=== PATIENT | female | born 1940 | race Caucasian/White ===

== ENCOUNTER 2017-01-10 09:20 | Inpatient (IN) | payer MEDICAID, MEDICARE ==
[~2017-01-10] VITALS: Ht 157.5 cm; Wt 47.6 kg
[2017-01-10 09:20] VITALS: BP 109/63
[~2017-01-10 09:20] MED LIST: ALBUTEROL SULF8.5 GM INH; ALENDRONATE SOD10 MG ORAL; CLONAZEPAM0.5 M1 PO; DEPAKOTE250 MG GT; DITROPAN10 MG ORAL; LASIX40 MG ORAL; MONTELUKAST SOD10 MG ORAL; NAMENDA10 MG GT; OMEPRAZOLE40 M1 ORAL; POTASSIUM PO; RISPERDAL1 MG GT
[2017-01-10] MEDS ORDERED: ARGINAID POWDE1 EACH GT (09:34)
[2017-01-10] MEDS ORDERED: ACETYLCYST100 MG/1 M TRANSTR092 (09:34)
[2017-01-10] MEDS ORDERED: ACETAMINOP160 MG/5 M GT (09:34)
[2017-01-10] MEDS: Albuterol/Ipratropium 3ml neb HHN SCH ×9 (09:35→11:30)
--- NOTE | 2017-01-10 09:38 | Emergency Room Report ---
History of Present Illness General Chief Complaint: Fever Source: Patient Present Illness HPI 76-year-old female, respiratory failure, with trach tube vent, PEG tube, diabetes, COPD, hypertension, presenting with fever and vomiting for one day. Nurse from group home states that patient had one episode of coffee ground emesis yesterday, meds do not reveal any anticoagulation or aspirin use. Patient is now complaining of abdominal pain. Patient also noted to have low- grade fever, was 99 axillary this morning. Patient is full code. Patient recently discharged from [facility] Patient had imaging done which showed large left lower lobe pneumonia no evidence of pulmonary embolism.. patient was treated for pneumonia, patient was discharged on 01/05/2017, to continue rozina fungating for possible candidiasis, at this admission patient had a tracheostomy placed Allergies: Coded Allergies: CODEINE (Unverified Allergy, Unknown, 01/10/17) PENICILLINS (Unverified Allergy, Unknown, 01/10/17) Patient History Past Medical History: see triage record Past Surgical History: none Pertinent Family History: none Reviewed Nursing Documentation: PMH: Agreed, PSxH: Agreed Nursing Documentation-PMH Hx Cardiac Problems: Yes Hx Pacemaker: No - ANEMIA Hx Asthma: Yes Hx Diabetes: Yes Hx Cancer: No Hx Gastrointestinal Problems: Yes - G-TUBE Hx Neurological Problems: Yes - mental retardation Review of Systems All Other Systems: limited - nonverbal Physical Exam Vital Signs Date Time Temp Pulse Resp B/P (MAP) Pulse Ox O2 Delivery O2 Flow Rate FiO2 01/10/17 09:16 98.4 90 14 109/63 100 Mechanical Ventilator 01/10/17 09:20 35 Sp02 EP Interpretation: reviewed, abnormal - 100% on vent General Appearance: alert, non-toxic, other - Chronically ill-appearing elderly female, awake however nonverbal, only slightly following commands, Chronically Ill Head: normocephalic, atraumatic Eyes: bilateral eye normal inspection, bilateral eye PERRL, bilateral eye EOMI ENT: normal ENT inspection, normal pharynx, normal voice, moist mucus membranes Neck: normal inspection, full range of motion, supple Respiratory: other - trached to vent, mech b/s, however exp wheezing Cardiovascular #1: normal inspection, regular rate, rhythm, no edema, normal capillary refill Cardiovascular #2: 2+ radial (R), 2+ radial (L) Gastrointestinal: soft, non-distended, no guarding, other - peg tube in place, no grimace to deep palpation of abdomen, non distended Musculoskeletal: normal inspection, back normal, normal range of motion, non- tender Neurologic: sensory intact, other - awake, nonverbal, not ff commands, unable to perform full neurological exam Psychiatric: normal inspection, judgement/insight normal, memory normal Skin: normal inspection, normal color, no rash, warm/dry, well hydrated, normal turgor Procedures Critical Care Time Critical Care Time 40 minutes of CC time 76-year-old female with coffee-ground emesis, fever VS: Tachycardic, normotensive Tracheostomy, vented Sepsis criteria met PLAN: IV access, labs, lactate, Blood/Urine Cx, Abx Anticipate admission to . [facility] CC time also includes review of labs, review of EMR, discussion with family and paperwork from SNF, d/w hospitalist CC could include dosing of pressors, additional Abx CC time does not include procedures Medical Decision Making Diagnostic Impression: Primary Impression: Severe sepsis Additional Impressions: Respiratory failure Tracheostomy dependence HCAP (healthcare-associated pneumonia) ER Course 76-year-old female, group home, fever and coffee-ground emesis DDX: Rule out sepsis, UTI, pneumonia, this time the concern is acute intra-abdominal injury abdomen is very soft nontender no conicity palpation Coffee-ground emesis: Gastritis, gastric ulcer, no history of alcohol abuse to think esophageal varices, patient is hemodynamically stable at this time Plan: Obtain labs, ua, type and screen, EKG, CXR protonix ER course: Patient has been monitored during ED stay, on vent given fluids 30cc/kg broad spec abx given afebrile rectally No episodes of coffee-ground emesis here in the emergency room however patient given Protonix Disposition: Patient is to be admitted to [facility] D/W hospitalist Dr Rachel who has accepted admission Please note that this Emergency Department Report was dictated using [employer] tender technology software, occasionally this can lead to erroneous entry secondary to interpretation by the dictation equipment. EKG Diagnostic Results EP Interpretation: Yes Rate: tachycardic Rhythm: NSR ST Segments: No acute changes ASA given to patient: No Rhythm Strip EP Interpretation: Yes Rate: 110 Rhythm: NSR, no PVCs, no ectopy Chest X-ray CXR: Ordered: Yes 1 view Indication: Fever EP interpretation: Yes Interpretation: trach noted, b/l infilrates worse on R Impression: b/l infiltrates worse on R Electronically signed by Thomas Wright MD Laboratory Tests Test 01/10/17 10:15 01/10/17 10:22 White Blood Count 20.7 K/UL (4.8-10.8) H Red Blood Count 2.58 M/UL (4.20-5.40) L Hemoglobin 8.2 G/DL (12.0-16.0) L Hematocrit 25.5 % (37.0-47.0) L Mean Corpuscular Volume 99 FL (80-99) Mean Corpuscular Hemoglobin 31.8 PG (27.0-31.0) H Mean Corpuscular Hemoglobin Concent 32.1 G/DL (32.0-36.0) Red Cell Distribution Width 14.2 % (11.6-14.8) Platelet Count 446 K/UL (150-450) Mean Platelet Volume 7.5 FL (6.5-10.1) Neutrophils (%) (Auto) % (45.0-75.0) Lymphocytes (%) (Auto) % (20.0-45.0) Monocytes (%) (Auto) % (1.0-10.0) Eosinophils (%) (Auto) % (0.0-3.0) Basophils (%) (Auto) % (0.0-2.0) Differential Total Cells Counted 100 Neutrophils % (Manual) 85 % (45-75) H Lymphocytes % (Manual) 9 % (20-45) L Monocytes % (Manual) 5 % (1-10) Eosinophils % (Manual) 1 % (0-3) Basophils % (Manual) 0 % (0-2) Band Neutrophils 0 % (0-8) Platelet Estimate Increased H Platelet Morphology Normal Red Blood Cell Morphology Normal Prothrombin Time 10.6 SEC (9.30-11.50) Prothrombin Time INR 1.0 (0.9-1.1) PTT 28 SEC (23-33) Sodium Level 143 MMOL/L (136-145) Potassium Level 4.1 MMOL/L (3.5-5.1) Chloride Level 106 MMOL/L (98-107) Carbon Dioxide Level 30 MMOL/L (21-32) Anion Gap 8 mmol/L (5-15) Blood Urea Nitrogen 35 mg/dL (7-18) H Creatinine 0.9 MG/DL (0.55-1.30) Estimate Glomerular Filtration Rate mL/min (>60) Glucose Level 99 MG/DL (74-106) Lactic Acid Level 1.40 mmol/L (0.66-2.22) Calcium Level 8.3 MG/DL (8.5-10.1) L Total Bilirubin 0.1 MG/DL (0.2-1.0) L Aspartate Amino Transferase (AST) 12 U/L (15-37) L Alanine Aminotransferase (ALT) 13 U/L (12-78) Alkaline Phosphatase 104 U/L (46-116) Total Creatine Kinase 18 U/L (26-308) L Creatine Kinase MB 0.8 NG/ML (0.0-3.6) Creatine Kinase MB Relative Index 4.4 Troponin I 0.000 ng/mL (0.000-0.056) Pro-B-Type Natriuretic Peptide 1989 pg/mL (0-125) H Total Protein 6.0 G/DL (6.4-8.2) L Albumin 1.8 G/DL (3.4-5.0) L Globulin 4.2 g/dL Albumin/Globulin Ratio 0.4 (1.0-2.7) L Urine Color Karen Urine Appearance Slightly cloudy Urine pH 7 (4.5-8.0) Urine Specific [place] 1.005 (1.005-1.035) Urine Protein 2+ (NEGATIVE) H Urine Glucose (UA) Negative (NEGATIVE) Urine Ketones Negative (NEGATIVE) Urine Occult Blood Negative (NEGATIVE) Urine Nitrite Negative (NEGATIVE) Urine Bilirubin Negative (NEGATIVE) Urine Ictotest Negative Urine Urobilinogen Normal MG/DL (0.0-1.0) Urine Leukocyte Esterase 2+ (NEGATIVE) H Urine RBC 0 /HPF (0 - 2) Urine WBC 5-10 /HPF (0 - 2) H Urine Squamous Epithelial Cells Occasional /LPF Urine Bacteria Few /HPF (NONE) Urine Mucus Few /LPF (NONE/OCC) H Last Vital Signs Date Time Temp Pulse Resp B/P (MAP) Pulse Ox O2 Delivery O2 Flow Rate FiO2 01/10/17 09:20 35 01/10/17 09:20 98.4 89 14 109/63 100 Trach Collar Disposition: ADMITTED INPATIENT Condition: Serious RetinoThomas M.D. Jan 10, 2017 09:38
[2017-01-10] MEDS ORDERED: MULTIVITAMINS1 EAC2 GT (10:02)
[2017-01-10] MEDS ORDERED: HUMALOG100 UNIT/4 SUBQ (10:02)
[2017-01-10] MEDS ORDERED: DUONEB 0.5-3(2.53 ML HHN (10:02)
[2017-01-10] MEDS ORDERED: NORVASC2.5 MG GT (10:02)
[2017-01-10] MEDS ORDERED: QUETIAPINE FUMA25 MG GT (10:02)
[2017-01-10] MEDS ORDERED: DOCUSATE SODIU250 MG GT (10:02)
[2017-01-10] MEDS ORDERED: VITAMIN C500 M1 GT (10:05)
[2017-01-10] MEDS ORDERED: ZINC50 M2 GT (10:05)
[2017-01-10] MEDS ORDERED: Aztreonam Inj 1 GM in NS 55 ML IV ONE (11:00)
[2017-01-10] MEDS ORDERED: Vancomycin 1.5gm/D5W 250ml 250 ML IVPB ONE (11:00)
[2017-01-10 11:16] VITALS: BP 125/70
[2017-01-10 11:24] LABS: BILIRUBIN, URINE NEGATIVE (NEGATIVE); COLOR,URINE AMBER; GLUCOSE, URINE (UA) NEGATIVE (NEGATIVE); KETONES,URINE NEGATIVE (NEGATIVE); LEUKOCYTE ESTERASE ,URINE 2+ (NEGATIVE); NITRITE,URINE NEGATIVE (NEGATIVE); PH,URINE 7 (4.5-8.0); PROTEIN,URINE 2+ (NEGATIVE); UROBILINOGEN,URINE NORMAL MG/DL (0.0-1.0)
[2017-01-10 11:29] LABS: APPEARANCE,URINE SLIGHTLY CLOUDY
[2017-01-10 11:37] LABS: HEMATOCRIT 25.5 % (37.0-47.0); HEMOGLOBIN 8.2 G/DL (12.0-16.0); MEAN CORPUSCULAR VOLUME 99 FL (80-99); PLATELET COUNT 446 K/UL (150-450); RED BLOOD COUNT 2.58 M/UL (4.20-5.40); RED CELL DISTRIBUTION WIDTH 14.2 % (11.6-14.8); WHITE BLOOD COUNT 20.7 K/UL (4.8-10.8)
--- NOTE | 2017-01-10 11:48 | Diagnostic Imaging Report ---
Indication: SOB Technique: One view of the chest Comparison: 05/29/2015 Findings: There is now a tracheostomy. Previously demonstrated large hiatal hernia is less evident currently as it is currently not gas-filled. There is infiltrate at the right lung base. There is also pleural fluid at the right lung base. The left hemidiaphragm is obscured, possibly due to the hiatal hernia, but pleural fluid not excludable. There does appear to be some retrocardiac consolidation and left perihilar consolidation Impression: Bilateral basilar consolidation and likely pleural fluid Cardiomegaly Note that previously reported large retrocardiac hiatal hernia is less evident currently. Interim tracheostomy placement
[2017-01-10] MEDS ORDERED: NS 1000ml 1,400 ML IVLG ONE (12:00)
--- NOTE | 2017-01-10 12:16 | Infectious Diseases Prog Note ---
Assessment/Plan Problems: (1) HCAP (healthcare-associated pneumonia) Assessment & Plan: with bilateral infiltrates, will send sputum culture and start meropenem , and vancomycin (2) UTI (urinary tract infection) Assessment & Plan: will send urine culture and start meropenem (3) Sepsis Assessment & Plan: due to the above, will start vancomycin and meropenem pending culture results (4) GI bleed Assessment & Plan: monitor H/H, consult GI, transfuse as needed (5) COPD exacerbation Assessment & Plan: continue nebulizer therapy, monitor CXR (6) Open nasal wound Assessment & Plan: unclear whether deep to the nasal cavity with septal necrosis , rule out deep fungal infection, will add amphotericin empirically, recommend ENT consult for further evaluation of the nasal cavity (7) Sacral wound Assessment & Plan: continue local wound care and off loading , consult wound care Subjective Allergies: Coded Allergies: CODEINE (Unverified Allergy, Unknown, 01/10/17) PENICILLINS (Unverified Allergy, Unknown, 01/10/17) Objective Vital Signs Last 24 Hour Vital Signs Date Time Temp Pulse Resp B/P (MAP) Pulse Ox O2 Delivery O2 Flow Rate FiO2 01/10/17 10:41 92 14 35 01/10/17 10:06 92 18 100 Mechanical Ventilator 15.0 35 01/10/17 09:36 35 01/10/17 09:36 95 25 100 Mechanical Ventilator 15.0 35 01/10/17 09:36 95 25 Mechanical Ventilator 15.0 35 01/10/17 09:33 96 25 35 01/10/17 09:20 35 01/10/17 09:20 98.4 89 14 109/63 100 Trach Collar 01/10/17 09:16 98.4 90 14 109/63 100 Mechanical Ventilator Height (Feet): 5 Height (Inches): 2.00 Weight (Pounds): 105 Laboratory Tests Test 01/10/17 10:15 01/10/17 10:22 White Blood Count 20.7 K/UL (4.8-10.8) H Red Blood Count 2.58 M/UL (4.20-5.40) L Hemoglobin 8.2 G/DL (12.0-16.0) L Hematocrit 25.5 % (37.0-47.0) L Mean Corpuscular Volume 99 FL (80-99) Mean Corpuscular Hemoglobin 31.8 PG (27.0-31.0) H Mean Corpuscular Hemoglobin Concent 32.1 G/DL (32.0-36.0) Red Cell Distribution Width 14.2 % (11.6-14.8) Platelet Count 446 K/UL (150-450) Mean Platelet Volume 7.5 FL (6.5-10.1) Neutrophils (%) (Auto) % (45.0-75.0) Lymphocytes (%) (Auto) % (20.0-45.0) Monocytes (%) (Auto) % (1.0-10.0) Eosinophils (%) (Auto) % (0.0-3.0) Basophils (%) (Auto) % (0.0-2.0) Neutrophils % (Manual) Pending Lymphocytes % (Manual) Pending Platelet Estimate Pending Platelet Morphology Pending Prothrombin Time 10.6 SEC (9.30-11.50) Prothromb Time International Ratio 1.0 (0.9-1.1) Activated Partial Thromboplast Time 28 SEC (23-33) Sodium Level Pending Potassium Level Pending Chloride Level Pending Carbon Dioxide Level Pending Blood Urea Nitrogen Pending Creatinine Pending Estimat Glomerular Filtration Rate Pending Glucose Level Pending Lactic Acid Level 1.40 mmol/L (0.66-2.22) Calcium Level Pending Total Bilirubin Pending Aspartate Amino Transf (AST/SGOT) Pending Alanine Aminotransferase (ALT/SGPT) Pending Alkaline Phosphatase Pending Total Creatine Kinase Pending Creatine Kinase MB Pending Troponin I 0.000 ng/mL (0.000-0.056) Pro-B-Type Natriuretic Peptide Pending Total Protein Pending Albumin Pending Globulin Pending Urine Color Karen Urine Appearance Slightly cloudy Urine pH 7 (4.5-8.0) Urine Specific [place] 1.005 (1.005-1.035) Urine Protein 2+ (NEGATIVE) H Urine Glucose (UA) Negative (NEGATIVE) Urine Ketones Negative (NEGATIVE) Urine Occult Blood Negative (NEGATIVE) Urine Nitrite Negative (NEGATIVE) Urine Bilirubin Negative (NEGATIVE) Urine Ictotest Negative Urine Urobilinogen Normal MG/DL (0.0-1.0) Urine Leukocyte Esterase 2+ (NEGATIVE) H Urine RBC 0 /HPF (0 - 2) Urine WBC 5-10 /HPF (0 - 2) H Urine Squamous Epithelial Cells Occasional /LPF Urine Bacteria Few /HPF (NONE) Urine Mucus Few /LPF (NONE/OCC) H Current Medications Medications (Trade) Dose Ordered Sig/Sky Route PRN Reason Start Time Stop Time Status Last Admin Dose Admin Albuterol/ Ipratropium (Albuterol/ Ipratropium) 3 ml Q15M HHN 01/10/17 09:30 01/15/17 09:29 01/10/17 10:00 Sodium Chloride 1,400 ml @ 1,400 mls/hr Q1H ONCE IVLG 01/10/17 12:00 01/10/17 12:59 01/10/17 12:05 Vancomycin HCl/ Dextrose 250 ml @ 125 mls/hr ONCE ONCE IVPB 01/10/17 11:00 01/10/17 12:59 Shankar Qiu M.D. Jan 10, 2017 12:16
[2017-01-10 12:27] LABS: ALANINE AMINOTRANSFERASE 13 U/L (12-78); ALBUMIN 1.8 G/DL (3.4-5.0); ALBUMIN/GLOBULIN RATIO 0.4 (1.0-2.7); ALKALINE PHOSPHATASE 104 U/L (46-116); ANION GAP 8 mmol/L (5-15); ASPARTATE AMINO TRANSFERASE 12 U/L (15-37); BILIRUBIN,TOTAL 0.1 MG/DL (0.2-1.0); BLOOD UREA NITROGEN 35 mg/dL (7-18); CALCIUM 8.3 MG/DL (8.5-10.1); CARBON DIOXIDE 30 MMOL/L (21-32); CHLORIDE 106 MMOL/L (98-107); CKMB 0.8 NG/ML (0.0-3.6); CREATINE KINASE 18 U/L (26-308); CREATININE 0.9 MG/DL (0.55-1.30); POTASSIUM 4.1 MMOL/L (3.5-5.1); SODIUM 143 MMOL/L (136-145)
[2017-01-10] MEDS ORDERED: Pantoprazole Inj IVP ONE (13:00)
[2017-01-10 13:03] VITALS: BP 133/53
[2017-01-10] MEDS ORDERED: Meropenem 1 GM in NS 110 ML IVPB SCH (13:30)
[2017-01-10] MEDS ORDERED: Acetaminophen 650mg/20.3ml ORAL PRN (14:45)
[2017-01-10] MEDS: Meropenem 1 GM in NS 110 ML IVPB SCH (15:04)
[2017-01-10 16:00] VITALS: BP 112/82
[2017-01-10 18:00] VITALS: BP 112/82
[2017-01-10] MEDS: Acetaminophen 650mg/20.3ml ORAL PRN (18:32)
[2017-01-10 20:00] VITALS: BP 100/52
[2017-01-10] MEDS: Valproic Acid 250mg/5ml Liquid NG SCH (20:27)
--- NOTE | 2017-01-10 22:44 | General Progress Note ---
Assessment/Plan Assessment/Plan # GI bleed anemia --> hx of hematemesis --> ferritin pending, gi eval recs to follow # Anemia due to chronic disease --> eval with anemia workuo --> hgb goal is >7 # HCAP (healthcare-associated pneumonia) - on antibiotics # UTI (urinary tract infection) # Sepsis # COPD exacerbation - on nebulizer prn Subjective Constitutional: Denies: no symptoms, chills, diaphoresis, fever, malaise, weakness, other HEENT: Denies: no symptoms, eye pain, blurred vision, tearing, double vision, ear pain, ear discharge, nose pain, nose congestion, throat pain, throat swelling, mouth pain, mouth swelling, other Cardiovascular: Denies: no symptoms, chest pain, edema, irregular heart rate, lightheadedness, palpitations, syncope, other Respiratory: Denies: no symptoms, cough, orthopnea, shortness of breath, SOB with excertion, SOB at rest, sputum, stridor, wheezing, other Genitourinary: Denies: no symptoms, burning, discharge, frequency, flank pain, hematuria, incontinence, pain, urgency, other Neurologic/Psychiatric: Denies: no symptoms, anxiety, depressed, emotional problems, headache, numbness, paresthesia, pre-existing deficit, seizure, tingling, tremors, weakness, other Endocrine: Denies: no symptoms, excessive sweating, flushing, intolerance to cold, intolerance to heat, increased hunger, increased thirst, increased urine, unexplained weight gain, unexplained weight loss, other Hematologic/Lymphatic: Denies: no symptoms, anemia, easy bleeding, easy bruising, other Allergies: Coded Allergies: CODEINE (Unverified Allergy, Unknown, 01/10/17) PENICILLINS (Unverified Allergy, Unknown, 01/10/17) Subjective monitoring h/h Objective Last 24 Hour Vital Signs Date Time Temp Pulse Resp B/P (MAP) Pulse Ox O2 Delivery O2 Flow Rate FiO2 01/10/17 21:14 91 15 35 01/10/17 20:00 97 01/10/17 19:10 96 20 35 01/10/17 16:55 100 20 35 01/10/17 16:00 99.6 90 14 112/82 100 Mechanical Ventilator 35 01/10/17 16:00 35 01/10/17 16:00 100 01/10/17 14:30 102 22 35 01/10/17 13:35 110 22 125/71 100 Trach Collar 35 01/10/17 13:03 105 14 133/53 100 Mechanical Ventilator 35 01/10/17 12:56 98 20 35 01/10/17 11:16 99.2 113 22 125/70 100 Mechanical Ventilator 35 01/10/17 10:41 92 14 35 01/10/17 10:06 92 18 100 Mechanical Ventilator 15.0 35 01/10/17 09:36 35 01/10/17 09:36 95 25 100 Mechanical Ventilator 15.0 35 01/10/17 09:36 95 25 Mechanical Ventilator 15.0 35 01/10/17 09:33 96 25 35 01/10/17 09:20 35 01/10/17 09:20 98.4 89 14 109/63 100 Trach Collar 01/10/17 09:16 98.4 90 14 109/63 100 Mechanical Ventilator Intake and Output 01/10/17 01/11/17 19:00 07:00 Intake Total 215 ml Output Total 500 ml Balance -285 ml Intake Oral 0 ml Free Water 50 ml IV Total 165 ml Output Urine Total 500 ml # Bowel Movements 2 Laboratory Tests 01/10/17 10:15: White Blood Count 20.7H, Red Blood Count 2.58L, Hemoglobin 8.2L, Hematocrit 25.5L, Mean Corpuscular Volume 99, Mean Corpuscular Hemoglobin 31.8H, Mean Corpuscular Hemoglobin Concent 32.1, Red Cell Distribution Width 14.2, Platelet Count 446, Mean Platelet Volume 7.5, Neutrophils (%) (Auto) , Lymphocytes (%) ( Auto) , Monocytes (%) (Auto) , Eosinophils (%) (Auto) , Basophils (%) (Auto) , Differential Total Cells Counted 100, Neutrophils % (Manual) 85H, Lymphocytes % (Manual) 9L, Monocytes % (Manual) 5, Eosinophils % (Manual) 1, Basophils % ( Manual) 0, Band Neutrophils 0, Platelet Estimate IncreasedH, Platelet Morphology Normal, Red Blood Cell Morphology Normal, Prothrombin Time 10.6, Prothromb Time International Ratio 1.0, Activated Partial Thromboplast Time 28, Sodium Level 143, Potassium Level 4.1, Chloride Level 106, Carbon Dioxide Level 30, Anion Gap 8, Blood Urea Nitrogen 35H, Creatinine 0.9, Estimat Glomerular Filtration Rate , Glucose Level 99, Lactic Acid Level 1.40, Calcium Level 8.3L, Total Bilirubin 0.1L, Aspartate Amino Transf (AST/SGOT) 12L, Alanine Aminotransferase (ALT/SGPT) 13, Alkaline Phosphatase 104, Total Creatine Kinase 18L, Creatine Kinase MB 0.8, Creatine Kinase MB Relative Index 4.4, Troponin I 0.000, Pro-B-Type Natriuretic Peptide 1989H, Total Protein 6.0L, Albumin 1.8L, Globulin 4.2, Albumin/Globulin Ratio 0.4L 01/10/17 10:22: Urine Color Karen, Urine Appearance Slightly cloudy, Urine pH 7, Urine Specific [place] 1.005, Urine Protein 2+H, Urine Glucose (UA) Negative, Urine Ketones Negative, Urine Occult Blood Negative, Urine Nitrite Negative, Urine Bilirubin Negative, Urine Ictotest Negative, Urine Urobilinogen Normal, Urine Leukocyte Esterase 2+H, Urine RBC 0, Urine WBC 5-10H, Urine Squamous Epithelial Cells Occasional, Urine Bacteria Few, Urine Mucus FewH Height (Feet): 5 Height (Inches): 2.00 Weight (Pounds): 105 General Appearance: no apparent distress EENT: TMs normal Neck: non-tender Cardiovascular: normal peripheral pulses Respiratory/Chest: no respiratory distress Abdomen: soft Genitourinary/Rectal: heme negative stool Extremities: non-tender Edema: 1+ Leg (L), 1+ Leg (R) Edema: mild edema Neurologic: alert Skin: warm/dry Reinier Lou Jan 10, 2017 22:44
--- NOTE | 2017-01-10 23:45 | Consultation ---
DATE OF CONSULTATION: 01/10/2017 INFECTIOUS DISEASES CONSULTATION CONSULTING PHYSICIAN: Shankar Qiu M.D. REQUESTING PHYSICIAN: Fernandez Gomez M.D. REASON FOR CONSULTATION: Sepsis, pneumonia, and recommendation for antibiotics treatment. HISTORY OF PRESENT ILLNESS: The patient is a 76-year-old female with past medical history of chronic respiratory failure, on ventilator, status post tracheostomy and dysphagia, status post PEG tube placement, diabetes, COPD, and hypertension, who was sent to [facility] Emergency Room for fever and vomiting from the half-way. The patient was found to have coffee-ground emesis, even though she was not on any anticoagulation and she was complaining of abdominal pain. She was found to have low-grade fever of 99 degrees. So, she was sent to [facility] for evaluation and management. The patient was recently discharged from [facility]. Workup over there showed large left lower lobe pneumonia with no evidence of PE. She was treated for pneumonia and discharged on 01/05/2017. The patient was given micafungin for possible candidiasis. She had a tracheostomy done during that admission. In the emergency room here, the patient was found to have temperature of 98.4 degrees and saturating 100% on 35% FiO2. She had a chest x-ray, which showed bilateral basilar infiltration with evidence of UTI. So, the patient was admitted to the hospital and I was consulted by the primary provider for antibiotics treatment and further management. PAST MEDICAL HISTORY: Significant for diabetes; asthma; GERD; dysphagia, status post G-tube placement; mental retardation; anemia; and coronary artery disease with asthma. PAST SURGICAL HISTORY: Negative. ALLERGIES: She is allergic to penicillin and codeine. FAMILY HISTORY: Unable to obtain. REVIEW OF SYSTEMS: Unable to obtain. The patient cannot provide any history. PHYSICAL EXAMINATION: VITAL SIGNS: Temperature 98.4 degrees, pulse 105, respirations 14, blood pressure 133/53, and saturation 100% on FiO2 of 35% on mechanical ventilation. GENERAL: Elderly female, intubated, looking ill, nonverbal. Does not follow commands. HEENT: Normocephalic and atraumatic. Pupils reactive to light. Moist oral mucosa. No exudate. NECK: Supple. No lymphadenopathy. CARDIOVASCULAR: Regular rate and rhythm. No murmur. No gallop. LUNGS: She had diminished breathing sounds at the bases with crackles. No respiratory distress. ABDOMEN: Soft, nontender, and nondistended. Positive bowel sounds. No hepatosplenomegaly. G-tube site looks intact. EXTREMITIES: No edema. No cyanosis. SKIN: No rash or hives. Normal turgor. LABORATORY AND DIAGNOSTIC DATA: Labs showed white count of 20.7, hemoglobin of 8.2, and platelet count of 446,000. BUN of 35 and creatinine of 0.9. AST of 12. Urinalysis showed +2 leukocyte esterase, WBC 5 to 10, and few bacteria. Imaging, chest x-ray, bilateral basilar consolidation and pleural effusion with cardiomegaly. ASSESSMENT AND RECOMMENDATION: 1. Healthcare-acquired pneumonia with bilateral infiltrates. We will send sputum culture and start meropenem with vancomycin renally dosed. Pending culture. Monitor chest x-ray. 2. Urinary tract infection. with recent candiduria , We will send urine culture and start meropenem and micafungin since she is allergic to penicillin. 3. Sepsis due to the above. We will start wide-spectrum antibiotics treatment pending culture results. 4. Gastrointestinal bleeding. Monitor hemoglobin and hematocrit. Consult GI. Transfuse blood as needed. 5. Chronic obstructive pulmonary disease, possible exacerbation. Continue nebulizer treatment. Monitor chest x-ray. Thank you for the consult. Infectious Disease will continue to follow. Shankar Qiu M.D. DR: Jair JOB#: [id number] CC: TAMMY
[2017-01-11] VITALS: BP 102/59
[2017-01-11] MEDS: Meropenem 1 GM in NS 110 ML IVPB SCH ×2 (01:35→12:15)
[2017-01-11 04:00] VITALS: BP 109/63
--- NOTE | 2017-01-11 05:15 | History and Physical Report ---
DATE OF ADMISSION: 01/10/2017 HISTORY OF PRESENT ILLNESS: The patient is admitted for upper GI bleed, coffee-ground emesis, vomiting at the long-term, as well as sepsis. The patient is also admitted for anemia. The patient is relatively a poor historian. Denies any shortness of breath. Denies cough. Denies chills. Denies abdominal pain. PAST MEDICAL HISTORY: Hypertension, respiratory insufficiency, mood disorder, constipation, NIDDM, urinary incontinence, and psychosis. PAST SURGICAL HISTORY: Trach and PEG. MEDICATIONS: Vitamin C, Depakote, Colace, insulin, Namenda, multivitamin, oxybutynin, Seroquel, antacids. ALLERGIES: Penicillin and codeine. SOCIAL HISTORY: Unable to obtain. She comes from a long-term. FAMILY HISTORY: Unable to obtain. REVIEW OF SYSTEMS: HEENT: Denies headaches. RESPIRATORY: Denies shortness of breath. Denies cough. CARDIOVASCULAR: Denies chest pain. GASTROINTESTINAL: Denies nausea, vomiting, or diarrhea. EXTREMITIES: Denies pain. Is a poor historian. PHYSICAL EXAMINATION: VITAL SIGNS: Temperature is 99.6 and blood pressure 112/82. HEENT: PERRLA. NECK: Supple. No lymphadenopathy. CHEST: Clear to auscultation. CARDIOVASCULAR: Regular rate and rhythm. ABDOMEN: Soft, nontender, and nondistended. EXTREMITIES: No edema. Reflexes are equal on both sides. LABORATORY DATA: WBC of 20.7, hemoglobin 8.2, and platelets of 446,000. Sodium 143, potassium 4.1, BUN 35, creatinine 0.9, and glucose of 99. BNP of 1189. ASSESSMENT: 1. Coffee-ground emesis. 2. Leukocytosis. 3. Fever. 4. Sepsis. 5. Anemia. PLAN: I have asked Dr. Qiu, Dr. Amor, Dr. Woods, and Dr. Lou to see the patient for the above-mentioned diagnoses and treatment. Fernandez Gomez M.D. DR: CHAIM JOB#: [id number] CC:
--- NOTE | 2017-01-11 05:15 | History and Physical Report ---
DATE OF ADMISSION: 01/10/2017 HISTORY OF PRESENT ILLNESS: The patient is admitted for upper GI bleed, coffee-ground emesis, vomiting at the senior living, as well as sepsis. The patient is also admitted for anemia. The patient is relatively a poor historian. Denies any shortness of breath. Denies cough. Denies chills. Denies abdominal pain. PAST MEDICAL HISTORY: Hypertension, respiratory insufficiency, mood disorder, constipation, NIDDM, urinary incontinence, and psychosis. PAST SURGICAL HISTORY: Trach and PEG. MEDICATIONS: Vitamin C, Depakote, Colace, insulin, Namenda, multivitamin, oxybutynin, Seroquel, antacids. ALLERGIES: Penicillin and codeine. SOCIAL HISTORY: Unable to obtain. She comes from a senior living. FAMILY HISTORY: Unable to obtain. REVIEW OF SYSTEMS: HEENT: Denies headaches. RESPIRATORY: Denies shortness of breath. Denies cough. CARDIOVASCULAR: Denies chest pain. GASTROINTESTINAL: Denies nausea, vomiting, or diarrhea. EXTREMITIES: Denies pain. Is a poor historian. PHYSICAL EXAMINATION: VITAL SIGNS: Temperature is 99.6 and blood pressure 112/82. HEENT: PERRLA. NECK: Supple. No lymphadenopathy. CHEST: Clear to auscultation. CARDIOVASCULAR: Regular rate and rhythm. ABDOMEN: Soft, nontender, and nondistended. EXTREMITIES: No edema. Reflexes are equal on both sides. LABORATORY DATA: WBC of 20.7, hemoglobin 8.2, and platelets of 446,000. Sodium 143, potassium 4.1, BUN 35, creatinine 0.9, and glucose of 99. BNP of 1189. ASSESSMENT: 1. Coffee-ground emesis. 2. Leukocytosis. 3. Fever. 4. Sepsis. 5. Anemia. PLAN: I have asked Dr. Qiu, Dr. Amor, Dr. Woods, and Dr. Lou to see the patient for the above-mentioned diagnoses and treatment. Fernandez Gomez M.D. DR: CHAIM JOB#: [id number] CC:
--- NOTE | 2017-01-11 05:15 | History and Physical Report ---
DATE OF ADMISSION: 01/10/2017 HISTORY OF PRESENT ILLNESS: The patient is admitted for upper GI bleed, coffee-ground emesis, vomiting at the alf, as well as sepsis. The patient is also admitted for anemia. The patient is relatively a poor historian. Denies any shortness of breath. Denies cough. Denies chills. Denies abdominal pain. PAST MEDICAL HISTORY: Hypertension, respiratory insufficiency, mood disorder, constipation, NIDDM, urinary incontinence, and psychosis. PAST SURGICAL HISTORY: Trach and PEG. MEDICATIONS: Vitamin C, Depakote, Colace, insulin, Namenda, multivitamin, oxybutynin, Seroquel, antacids. ALLERGIES: Penicillin and codeine. SOCIAL HISTORY: Unable to obtain. She comes from a alf. FAMILY HISTORY: Unable to obtain. REVIEW OF SYSTEMS: HEENT: Denies headaches. RESPIRATORY: Denies shortness of breath. Denies cough. CARDIOVASCULAR: Denies chest pain. GASTROINTESTINAL: Denies nausea, vomiting, or diarrhea. EXTREMITIES: Denies pain. Is a poor historian. PHYSICAL EXAMINATION: VITAL SIGNS: Temperature is 99.6 and blood pressure 112/82. HEENT: PERRLA. NECK: Supple. No lymphadenopathy. CHEST: Clear to auscultation. CARDIOVASCULAR: Regular rate and rhythm. ABDOMEN: Soft, nontender, and nondistended. EXTREMITIES: No edema. Reflexes are equal on both sides. LABORATORY DATA: WBC of 20.7, hemoglobin 8.2, and platelets of 446,000. Sodium 143, potassium 4.1, BUN 35, creatinine 0.9, and glucose of 99. BNP of 1189. ASSESSMENT: 1. Coffee-ground emesis. 2. Leukocytosis. 3. Fever. 4. Sepsis. 5. Anemia. PLAN: I have asked Dr. Qiu, Dr. Amor, Dr. Woods, and Dr. Lou to see the patient for the above-mentioned diagnoses and treatment. Fernandez Gomez M.D. DR: CHAIM JOB#: [id number] CC:
[2017-01-11 06:12] LABS: HEMATOCRIT 22.9 % (37.0-47.0); MEAN CORPUSCULAR VOLUME 98 FL (80-99); PLATELET COUNT 392 K/UL (150-450); RED BLOOD COUNT 2.35 M/UL (4.20-5.40); RED CELL DISTRIBUTION WIDTH 13.6 % (11.6-14.8); WHITE BLOOD COUNT 21.2 K/UL (4.8-10.8)
[2017-01-11 06:48] LABS: % IRON SATURATION 6 % (15-50); IRON 7 ug/dL (50-175); TOTAL IRON BINDING CAPACITY 127 ug/dL (250-450)
[2017-01-11 06:54] LABS: FERRITIN 228 NG/ML (8-388)
[2017-01-11 08:16] VITALS: BP 127/65
[2017-01-11] MEDS: Pantoprazole Inj IVP SCH ×2 (09:11→22:54)
[2017-01-11] MEDS: Docusate 100mg/10ml Liq NG SCH (09:11)
[2017-01-11] MEDS: Ascorbic Acid 500mg tab GT SCH (09:12)
[2017-01-11] MEDS: Memantine 10mg tab GT SCH (09:12)
[2017-01-11] MEDS: Valproic Acid 250mg/5ml Liquid NG SCH ×2 (09:12→22:54)
[2017-01-11] MEDS ORDERED: Micafungin 100 MG in NS 110 ML IVPB SCH (11:00)
[2017-01-11 11:15] VITALS: BP 118/54
--- NOTE | 2017-01-11 13:04 | Consultation ---
Consult Note Assessment/Plan #[id number] vdrf gi bleed pna pleural effusions anemia sepsis MATILDA Gant DO Jan 11, 2017 13:04
--- NOTE | 2017-01-11 13:04 | Consultation ---
Consult Note Assessment/Plan #[id number] vdrf gi bleed pna pleural effusions anemia sepsis MATILDA Gant DO Jan 11, 2017 13:04
--- NOTE | 2017-01-11 13:04 | Consultation ---
Consult Note Assessment/Plan #[id number] vdrf gi bleed pna pleural effusions anemia sepsis MATILDA Gant DO Jan 11, 2017 13:04
[2017-01-11] MEDS: Albuterol/Ipratropium 3ml neb HHN SCH ×2 (13:41→22:18)
[2017-01-11 16:14] VITALS: BP 113/45
--- NOTE | 2017-01-11 18:22 | Infectious Diseases Prog Note ---
Assessment/Plan Problems: (1) HCAP (healthcare-associated pneumonia) Assessment & Plan: with bilateral infiltrates, await sputum culture, continue meropenem , and vancomycin (2) UTI (urinary tract infection) Assessment & Plan: await urine culture , continue meropenem (3) Sepsis Assessment & Plan: due to the above, continue vancomycin and meropenem pending culture results (4) GI bleed Assessment & Plan: monitor H/H, consult GI, transfuse as needed (5) COPD exacerbation Assessment & Plan: continue nebulizer therapy, monitor CXR (6) Sacral wound Assessment & Plan: continue local wound care and off loading , consult wound care (7) Open nasal wound Assessment & Plan: unclear whether deep to the nasal cavity with septal necrosis , rule out deep fungal infection, will add amphotericin empirically, recommend ENT consult for further evaluation of the nasal cavity Subjective ROS Limited/Unobtainable: Yes Allergies: Coded Allergies: CODEINE (Unverified Allergy, Unknown, 01/10/17) PENICILLINS (Unverified Allergy, Unknown, 01/10/17) Subjective she is comfortable, on mechanical ventilation with trach, afebrile, had melena Objective Vital Signs Last 24 Hour Vital Signs Date Time Temp Pulse Resp B/P (MAP) Pulse Ox O2 Delivery O2 Flow Rate FiO2 01/11/17 16:46 87 18 35 01/11/17 16:14 97.9 88 15 113/45 100 Mechanical Ventilator 35 01/11/17 16:00 35 01/11/17 15:21 92 16 35 01/11/17 13:50 88 18 97 Mechanical Ventilator 15.0 35 01/11/17 13:41 35 01/11/17 13:41 86 20 99 Mechanical Ventilator 15.0 35 01/11/17 12:57 84 17 35 01/11/17 12:00 71 01/11/17 12:00 35 01/11/17 11:20 85 20 35 01/11/17 11:15 97.3 81 16 118/54 100 Mechanical Ventilator 35 01/11/17 09:12 84 127/65 01/11/17 08:57 98 01/11/17 08:56 84 26 35 01/11/17 08:55 60 01/11/17 08:16 97.7 86 17 127/65 98 Mechanical Ventilator 35 01/11/17 08:00 35 01/11/17 06:46 79 23 35 01/11/17 05:22 78 22 35 01/11/17 04:00 98.6 84 16 109/63 100 Mechanical Ventilator 35 01/11/17 04:00 35 01/11/17 04:00 61 01/11/17 03:26 72 11 35 01/11/17 01:23 88 17 35 01/11/17 00:00 98.3 79 18 102/59 100 Mechanical Ventilator 35 01/11/17 00:00 35 01/11/17 00:00 65 01/10/17 23:28 94 20 35 01/10/17 21:14 91 15 35 01/10/17 20:00 98.2 81 16 100/52 100 Mechanical Ventilator 35 01/10/17 20:00 97 01/10/17 20:00 35 01/10/17 19:10 96 20 35 Height (Feet): 5 Height (Inches): 2.00 Weight (Pounds): 105 General Appearance: WD/WN, no acute distress HEENT: normocephalic, atraumatic, anicteric, mucous membranes moist Respiratory/Chest: chest wall non-tender, normal breath sounds, no respiratory distress, no accessory muscle use, decreased breath sounds, crackles/rales Cardiovascular: normal peripheral pulses, normal rate, regular rhythm, no gallop/murmur, no JVD Abdomen: normal bowel sounds, soft, non tender, no organomegaly, non distended , no mass, no scars Genitourinary: normal external genitalia Extremities: no cyanosis, no clubbing Skin: no rash, no lesions, ulcers Lymphatic: no neck adenopathy, no groin adenopathy Microbiology Date/Time Source Procedure Growth Status 01/10/17 16:40 Indwelling Cath Urine Culture - Preliminary NO GROWTH Resulted Laboratory Tests Test 01/11/17 05:40 White Blood Count 21.2 K/UL (4.8-10.8) H Red Blood Count 2.35 M/UL (4.20-5.40) L Hemoglobin 8.0 G/DL (12.0-16.0) L Hematocrit 22.9 % (37.0-47.0) L Mean Corpuscular Volume 98 FL (80-99) Mean Corpuscular Hemoglobin 34.0 PG (27.0-31.0) H Mean Corpuscular Hemoglobin Concent 34.8 G/DL (32.0-36.0) Red Cell Distribution Width 13.6 % (11.6-14.8) Platelet Count 392 K/UL (150-450) Mean Platelet Volume 7.7 FL (6.5-10.1) Neutrophils (%) (Auto) % (45.0-75.0) Lymphocytes (%) (Auto) % (20.0-45.0) Monocytes (%) (Auto) % (1.0-10.0) Eosinophils (%) (Auto) % (0.0-3.0) Basophils (%) (Auto) % (0.0-2.0) Differential Total Cells Counted 100 Neutrophils % (Manual) 85 % (45-75) H Lymphocytes % (Manual) 4 % (20-45) L Monocytes % (Manual) 6 % (1-10) Eosinophils % (Manual) 1 % (0-3) Basophils % (Manual) 1 % (0-2) Band Neutrophils 3 % (0-8) Platelet Estimate Adequate Platelet Morphology Normal Reticulocyte Count 1.6 % (0.0-2.0) Iron Level 7 ug/dL (50-175) L Total Iron Binding Capacity 127 ug/dL (250-450) L Percent Iron Saturation 6 % (15-50) L Unsaturated Iron Binding 120 ug/dL (112-346) Ferritin 228 NG/ML (8-388) Current Medications Medications (Trade) Dose Ordered Sig/Sky Route PRN Reason Start Time Stop Time Status Last Admin Dose Admin Acetaminophen (Tylenol) 650 mg Q6H PRN ORAL Mild Pain/Temp > 100.5 01/10/17 18:00 02/09/17 17:59 01/10/17 18:32 Acetylcysteine (Mucomyst) 400 mg Q8HR IN-LINE 01/10/17 22:00 02/09/17 21:59 01/11/17 13:41 Albuterol/ Ipratropium (Albuterol/ Ipratropium) 3 ml Q6HRT HHN 01/11/17 13:00 01/16/17 12:59 01/11/17 13:41 Amlodipine Besylate (Norvasc) 2.5 mg DAILY GT 01/11/17 09:00 02/10/17 08:59 01/11/17 09:12 Ascorbic Acid (Vitamin C) 500 mg DAILY GT 01/11/17 09:00 02/10/17 08:59 01/11/17 09:12 Dextrose (Dextrose 50%) STAT PRN IV Hypoglycemia 01/10/17 14:45 02/09/17 14:44 Docusate Sodium (Colace) 250 mg DAILY NG 01/11/17 09:00 02/10/17 08:59 01/11/17 09:11 Iron Sucrose 100 mg/Sodium Chloride 60 ml @ 240 mls/hr BEDTIME IV 01/11/17 21:00 01/15/17 21:14 Memantine (Namenda) 10 mg DAILY GT 01/11/17 09:00 02/10/17 08:59 01/11/17 09:12 Meropenem 1 gm/ Sodium Chloride 110 ml @ 220 mls/hr Q12HR@0100,1300 IVPB 01/10/17 13:30 01/15/17 13:29 01/11/17 12:15 Micafungin Sodium 100 mg/Sodium Chloride 110 ml @ 110 mls/hr Q24H IVPB 01/11/17 11:00 01/18/17 10:59 01/11/17 11:11 Ondansetron HCl (Zofran) 4 mg Q6H PRN IVP Nausea & Vomiting 01/10/17 14:45 02/09/17 14:44 Pantoprazole (Protonix) 40 mg EVERY 12 HOURS IVP 01/11/17 09:00 02/10/17 08:59 01/11/17 09:11 Risperidone (RisperDAL) 1 mg QHS GT 01/10/17 21:00 02/09/17 20:59 01/10/17 20:28 Valproic Acid (Depakene) 250 mg EVERY 12 HOURS NG 01/10/17 21:00 02/09/17 20:59 01/11/17 09:12 Vancomycin HCl (Vanco rx to dose) 1 ea DAILY PRN MISC Per rx protocol 01/10/17 12:15 02/09/17 12:14 Vancomycin/Sodium Chloride 250 ml @ 166.667 mls/hr Q24H IVPB 01/11/17 20:00 01/16/17 19:59 Shankar Qiu M.D. Jan 11, 2017 18:22
[2017-01-11] MEDS ORDERED: Amphotericin B Liposome 50mg inj IV SCH (18:30)
--- NOTE | 2017-01-11 18:34 | Cardiology Report ---
APPROVED REPORT EKG Measurement Heart [id number] ID [id number] Normal sinus rhythm Normal ECG
--- NOTE | 2017-01-11 18:34 | Cardiology Report ---
APPROVED REPORT EKG Measurement Heart [id number] Normal sinus rhythm Normal ECG
--- NOTE | 2017-01-11 18:34 | Cardiology Report ---
APPROVED REPORT EKG Measurement Heart [id number] [id number] Normal sinus rhythm Normal ECG
[2017-01-11 20:00] VITALS: BP 95/62
[2017-01-11] MEDS ORDERED: Vancomycin 750mg/NS 250ml IVPB SCH (20:00)
[2017-01-11] MEDS ORDERED: AMPHOTERICIN B LIPOSOME IV SCH (20:00)
[2017-01-11] MEDS ORDERED: D5W IV SCH (20:00)
--- NOTE | 2017-01-11 20:30 | Consultation ---
DATE OF CONSULTATION: 01/11/2017 PULMONARY CONSULTATION: CONSULTING PHYSICIAN: Gloria Sandoval DO REASON FOR CONSULTATION: Ventilator-dependent respiratory failure. HISTORY OF PRESENT ILLNESS: Elderly female who has chronic ventilator-dependent respiratory failure status post trach was admitted for upper gastrointestinal bleed with coffee-grounds emesis as well as hypertension and suspected underlying pneumonia. The patient although is on a vent attempts to communicate, is difficult to understand and cannot obtain adequate history from the patient. It was obtained from the electronic medical record. She is able to answer yes or no questions. Denies any chest pain, shortness of breath. Does complain of secretions, does have some nausea and vomiting. No fevers or chills that she is aware of. PAST MEDICAL HISTORY: Includes ventilator-dependent respiratory failure, hypertension, mood disorder, constipation, diabetes, psychosis. PAST SURGICAL HISTORY: Includes trach and PEG. MEDICATIONS: Reviewed and reconciled and documented in the electronic medical record in terms of dose, frequency, route. ALLERGIES: To penicillin and codeine. SOCIAL HISTORY: Negative for tobacco or drugs. FAMILY HISTORY: Unavailable. REVIEW OF SYSTEMS: Also unreliable and unobtainable. PHYSICAL EXAMINATION: GENERAL: At the time my exam, she is alert and oriented to person. She is in no acute respiratory distress on the ventilator of a setting of AC 10, 400, 5 of PEEP, 35%. VITAL SIGNS: She is afebrile, pulse is 84, respirations are 17, she is again on 35% FiO2. In her In's and Out's, she is positive 160. HEENT: Normocephalic and atraumatic. NECK: Supple. Trach site was clean, dry, and intact. LUNGS: Bilateral rhonchi. HEART: Regular rhythm without a murmur. ABDOMEN: Soft and distended with decreased bowel sounds. EXTREMITIES: Positive edema. She does move all extremities and follows simple commands. LABORATORY VALUES: White count 21.2, hemoglobin of 8, and platelets are 392. Her sodium yesterday was 143, potassium 4.1, chloride 106, bicarb 30, BUN 35, creatinine 0.9. Her LFTs are essentially normal. Her BNP is elevated at 1988. Her urinalysis is positive for leukocyte esterase. Chest x-ray on the day of admission with pneumonia, pleural effusion, cardiomegaly. ASSESSMENT AND PLAN: 1. Ventilator-dependent respiratory failure. 2. Chronic pneumonia, possible underlying congestive heart failure. 3. Urinary tract infection. 4. Sepsis. 5. Hypertension. 6. Diabetes. PLAN: I would continue her on her current vent settings. DVT prophylaxis. IV antibiotics. Nebulizers and suctioning every 4 hours around the clock. Proton pump inhibitor. Follow up with Gastroenterology recommendations. Transfuse for hemoglobin less than 8. Wound care and we will address nutritional support after she is seen by gastrointestinal. Thank you very much for this consultation. Greater than 35 minutes of critical care time spent with reviewing the patient's medical records, discussing with the nursing staff and documentation orders accordingly. Gloria Sandoval D.O. DR: Garrett JOB#: [id number] CC:
[2017-01-11] MEDS ORDERED: Iron Sucrose 100 MG in NS 55 ML IV SCH (21:00)
--- NOTE | 2017-01-11 21:33 | General Progress Note ---
Assessment/Plan Problem List: (1) GI bleed ICD Codes: K92.2 - Gastrointestinal hemorrhage, unspecified SNOMED: 71566888 (2) Sepsis ICD Codes: A41.9 - Sepsis, unspecified organism SNOMED: 02234513 (3) HCAP (healthcare-associated pneumonia) ICD Codes: J18.9 - Pneumonia, unspecified organism SNOMED: 976016932 (4) UTI (urinary tract infection) ICD Codes: N39.0 - Urinary tract infection, site not specified SNOMED: 97483211 Status: progressing Assessment/Plan afebrile reviewed chart and labs and meds no wheezing gi bleed moniter for bleeding Subjective Constitutional: Reports: no symptoms Allergies: Coded Allergies: CODEINE (Unverified Allergy, Unknown, 01/10/17) PENICILLINS (Unverified Allergy, Unknown, 01/10/17) Objective Last 24 Hour Vital Signs Date Time Temp Pulse Resp B/P (MAP) Pulse Ox O2 Delivery O2 Flow Rate FiO2 01/11/17 21:20 86 19 35 01/11/17 19:24 80 14 35 01/11/17 16:46 87 18 35 01/11/17 16:14 97.9 88 15 113/45 100 Mechanical Ventilator 35 01/11/17 16:00 89 01/11/17 16:00 35 01/11/17 15:21 92 16 35 01/11/17 13:50 88 18 97 Mechanical Ventilator 15.0 35 01/11/17 13:41 35 01/11/17 13:41 86 20 99 Mechanical Ventilator 15.0 35 01/11/17 12:57 84 17 35 01/11/17 12:00 71 01/11/17 12:00 35 01/11/17 11:20 85 20 35 01/11/17 11:15 97.3 81 16 118/54 100 Mechanical Ventilator 35 01/11/17 09:12 84 127/65 01/11/17 08:57 98 01/11/17 08:56 84 26 35 01/11/17 08:55 60 01/11/17 08:16 97.7 86 17 127/65 98 Mechanical Ventilator 35 01/11/17 08:00 35 01/11/17 06:46 79 23 35 01/11/17 05:22 78 22 35 01/11/17 04:00 98.6 84 16 109/63 100 Mechanical Ventilator 35 01/11/17 04:00 35 01/11/17 04:00 61 01/11/17 03:26 72 11 35 01/11/17 01:23 88 17 35 01/11/17 00:00 98.3 79 18 102/59 100 Mechanical Ventilator 35 01/11/17 00:00 35 01/11/17 00:00 65 01/10/17 23:28 94 20 35 Intake and Output 01/11/17 01/12/17 19:00 07:00 Intake Total 320 ml Balance 320 ml IV Total 220 ml Other 100 ml # Voids 2 # Bowel Movements 2 Laboratory Tests 01/11/17 05:40: White Blood Count 21.2H, Red Blood Count 2.35L, Hemoglobin 8.0L, Hematocrit 22.9L, Mean Corpuscular Volume 98, Mean Corpuscular Hemoglobin 34.0H, Mean Corpuscular Hemoglobin Concent 34.8, Red Cell Distribution Width 13.6, Platelet Count 392, Mean Platelet Volume 7.7, Neutrophils (%) (Auto) , Lymphocytes (%) ( Auto) , Monocytes (%) (Auto) , Eosinophils (%) (Auto) , Basophils (%) (Auto) , Differential Total Cells Counted 100, Neutrophils % (Manual) 85H, Lymphocytes % (Manual) 4L, Monocytes % (Manual) 6, Eosinophils % (Manual) 1, Basophils % ( Manual) 1, Band Neutrophils 3, Platelet Estimate Adequate, Platelet Morphology Normal, Reticulocyte Count 1.6, Iron Level 7L, Total Iron Binding Capacity 127L , Percent Iron Saturation 6L, Unsaturated Iron Binding 120, Ferritin 228 Height (Feet): 5 Height (Inches): 2.00 Weight (Pounds): 105 Fernandez Gomez MD Jan 11, 2017 21:33
--- NOTE | 2017-01-11 21:33 | General Progress Note ---
Assessment/Plan Problem List: (1) GI bleed ICD Codes: K92.2 - Gastrointestinal hemorrhage, unspecified SNOMED: 92676074 (2) Sepsis ICD Codes: A41.9 - Sepsis, unspecified organism SNOMED: 08301672 (3) HCAP (healthcare-associated pneumonia) ICD Codes: J18.9 - Pneumonia, unspecified organism SNOMED: 871585713 (4) UTI (urinary tract infection) ICD Codes: N39.0 - Urinary tract infection, site not specified SNOMED: 86061950 Status: progressing Assessment/Plan afebrile reviewed chart and labs and meds no wheezing gi bleed moniter for bleeding Subjective Constitutional: Reports: no symptoms Allergies: Coded Allergies: CODEINE (Unverified Allergy, Unknown, 01/10/17) PENICILLINS (Unverified Allergy, Unknown, 01/10/17) Objective Last 24 Hour Vital Signs Date Time Temp Pulse Resp B/P (MAP) Pulse Ox O2 Delivery O2 Flow Rate FiO2 01/11/17 21:20 86 19 35 01/11/17 19:24 80 14 35 01/11/17 16:46 87 18 35 01/11/17 16:14 97.9 88 15 113/45 100 Mechanical Ventilator 35 01/11/17 16:00 89 01/11/17 16:00 35 01/11/17 15:21 92 16 35 01/11/17 13:50 88 18 97 Mechanical Ventilator 15.0 35 01/11/17 13:41 35 01/11/17 13:41 86 20 99 Mechanical Ventilator 15.0 35 01/11/17 12:57 84 17 35 01/11/17 12:00 71 01/11/17 12:00 35 01/11/17 11:20 85 20 35 01/11/17 11:15 97.3 81 16 118/54 100 Mechanical Ventilator 35 01/11/17 09:12 84 127/65 01/11/17 08:57 98 01/11/17 08:56 84 26 35 01/11/17 08:55 60 01/11/17 08:16 97.7 86 17 127/65 98 Mechanical Ventilator 35 01/11/17 08:00 35 01/11/17 06:46 79 23 35 01/11/17 05:22 78 22 35 01/11/17 04:00 98.6 84 16 109/63 100 Mechanical Ventilator 35 01/11/17 04:00 35 01/11/17 04:00 61 01/11/17 03:26 72 11 35 01/11/17 01:23 88 17 35 01/11/17 00:00 98.3 79 18 102/59 100 Mechanical Ventilator 35 01/11/17 00:00 35 01/11/17 00:00 65 01/10/17 23:28 94 20 35 Intake and Output 01/11/17 01/12/17 19:00 07:00 Intake Total 320 ml Balance 320 ml IV Total 220 ml Other 100 ml # Voids 2 # Bowel Movements 2 Laboratory Tests 01/11/17 05:40: White Blood Count 21.2H, Red Blood Count 2.35L, Hemoglobin 8.0L, Hematocrit 22.9L, Mean Corpuscular Volume 98, Mean Corpuscular Hemoglobin 34.0H, Mean Corpuscular Hemoglobin Concent 34.8, Red Cell Distribution Width 13.6, Platelet Count 392, Mean Platelet Volume 7.7, Neutrophils (%) (Auto) , Lymphocytes (%) ( Auto) , Monocytes (%) (Auto) , Eosinophils (%) (Auto) , Basophils (%) (Auto) , Differential Total Cells Counted 100, Neutrophils % (Manual) 85H, Lymphocytes % (Manual) 4L, Monocytes % (Manual) 6, Eosinophils % (Manual) 1, Basophils % ( Manual) 1, Band Neutrophils 3, Platelet Estimate Adequate, Platelet Morphology Normal, Reticulocyte Count 1.6, Iron Level 7L, Total Iron Binding Capacity 127L , Percent Iron Saturation 6L, Unsaturated Iron Binding 120, Ferritin 228 Height (Feet): 5 Height (Inches): 2.00 Weight (Pounds): 105 Fernandez Gomez MD Jan 11, 2017 21:33
--- NOTE | 2017-01-11 21:33 | General Progress Note ---
Assessment/Plan Problem List: (1) GI bleed ICD Codes: K92.2 - Gastrointestinal hemorrhage, unspecified SNOMED: 16585453 (2) Sepsis ICD Codes: A41.9 - Sepsis, unspecified organism SNOMED: 82182514 (3) HCAP (healthcare-associated pneumonia) ICD Codes: J18.9 - Pneumonia, unspecified organism SNOMED: 416846416 (4) UTI (urinary tract infection) ICD Codes: N39.0 - Urinary tract infection, site not specified SNOMED: 84693198 Status: progressing Assessment/Plan afebrile reviewed chart and labs and meds no wheezing gi bleed moniter for bleeding Subjective Constitutional: Reports: no symptoms Allergies: Coded Allergies: CODEINE (Unverified Allergy, Unknown, 01/10/17) PENICILLINS (Unverified Allergy, Unknown, 01/10/17) Objective Last 24 Hour Vital Signs Date Time Temp Pulse Resp B/P (MAP) Pulse Ox O2 Delivery O2 Flow Rate FiO2 01/11/17 21:20 86 19 35 01/11/17 19:24 80 14 35 01/11/17 16:46 87 18 35 01/11/17 16:14 97.9 88 15 113/45 100 Mechanical Ventilator 35 01/11/17 16:00 89 01/11/17 16:00 35 01/11/17 15:21 92 16 35 01/11/17 13:50 88 18 97 Mechanical Ventilator 15.0 35 01/11/17 13:41 35 01/11/17 13:41 86 20 99 Mechanical Ventilator 15.0 35 01/11/17 12:57 84 17 35 01/11/17 12:00 71 01/11/17 12:00 35 01/11/17 11:20 85 20 35 01/11/17 11:15 97.3 81 16 118/54 100 Mechanical Ventilator 35 01/11/17 09:12 84 127/65 01/11/17 08:57 98 01/11/17 08:56 84 26 35 01/11/17 08:55 60 01/11/17 08:16 97.7 86 17 127/65 98 Mechanical Ventilator 35 01/11/17 08:00 35 01/11/17 06:46 79 23 35 01/11/17 05:22 78 22 35 01/11/17 04:00 98.6 84 16 109/63 100 Mechanical Ventilator 35 01/11/17 04:00 35 01/11/17 04:00 61 01/11/17 03:26 72 11 35 01/11/17 01:23 88 17 35 01/11/17 00:00 98.3 79 18 102/59 100 Mechanical Ventilator 35 01/11/17 00:00 35 01/11/17 00:00 65 01/10/17 23:28 94 20 35 Intake and Output 01/11/17 01/12/17 19:00 07:00 Intake Total 320 ml Balance 320 ml IV Total 220 ml Other 100 ml # Voids 2 # Bowel Movements 2 Laboratory Tests 01/11/17 05:40: White Blood Count 21.2H, Red Blood Count 2.35L, Hemoglobin 8.0L, Hematocrit 22.9L, Mean Corpuscular Volume 98, Mean Corpuscular Hemoglobin 34.0H, Mean Corpuscular Hemoglobin Concent 34.8, Red Cell Distribution Width 13.6, Platelet Count 392, Mean Platelet Volume 7.7, Neutrophils (%) (Auto) , Lymphocytes (%) ( Auto) , Monocytes (%) (Auto) , Eosinophils (%) (Auto) , Basophils (%) (Auto) , Differential Total Cells Counted 100, Neutrophils % (Manual) 85H, Lymphocytes % (Manual) 4L, Monocytes % (Manual) 6, Eosinophils % (Manual) 1, Basophils % ( Manual) 1, Band Neutrophils 3, Platelet Estimate Adequate, Platelet Morphology Normal, Reticulocyte Count 1.6, Iron Level 7L, Total Iron Binding Capacity 127L , Percent Iron Saturation 6L, Unsaturated Iron Binding 120, Ferritin 228 Height (Feet): 5 Height (Inches): 2.00 Weight (Pounds): 105 Fernandez Gomez MD Jan 11, 2017 21:33
[2017-01-11] MEDS: D5 1/2NS 1,000 ML IV SCH (21:53)
[2017-01-12] VITALS (9 sets, daily range): BP systolic 94–146; BP diastolic 48–73
[2017-01-12] MEDS: Albuterol/Ipratropium 3ml neb HHN SCH ×4 (01:32→19:49)
[2017-01-12] MEDS: Meropenem 1 GM in NS 110 ML IVPB SCH ×2 (02:06→13:49)
[2017-01-12 04:41] LABS: HEMATOCRIT 21.8 % (37.0-47.0); HEMOGLOBIN 7.2 G/DL (12.0-16.0); MEAN CORPUSCULAR VOLUME 98 FL (80-99); PLATELET COUNT 392 K/UL (150-450); RED BLOOD COUNT 2.23 M/UL (4.20-5.40); RED CELL DISTRIBUTION WIDTH 13.9 % (11.6-14.8); WHITE BLOOD COUNT 20.7 K/UL (4.8-10.8)
[2017-01-12 05:22] LABS: ALANINE AMINOTRANSFERASE 10 U/L (12-78); ALBUMIN 1.3 G/DL (3.4-5.0); ALBUMIN/GLOBULIN RATIO 0.4 (1.0-2.7); ALKALINE PHOSPHATASE 93 U/L (46-116); AMYLASE 24 U/L (25-115); ANION GAP 9 mmol/L (5-15); ASPARTATE AMINO TRANSFERASE 15 U/L (15-37); BILIRUBIN,TOTAL 0.2 MG/DL (0.2-1.0); BLOOD UREA NITROGEN 23 mg/dL (7-18); CALCIUM 7.7 MG/DL (8.5-10.1); CARBON DIOXIDE 24 MMOL/L (21-32); CHLORIDE 108 MMOL/L (98-107); POTASSIUM 3.4 MMOL/L (3.5-5.1); SODIUM 141 MMOL/L (136-145)
[2017-01-12 05:34] LABS: % IRON SATURATION 109 % (15-50); IRON 186 ug/dL (50-175); TOTAL IRON BINDING CAPACITY 171 ug/dL (250-450)
--- NOTE | 2017-01-12 06:30 | Anethesia Preoperative Eval ---
Anesthesia Pre-op PMH/ROS General Date of Evaluation: Jan 12, 2017 Time of Evaluation: 06:27 Anesthesiologist: lobito ASA Score: ASA 4 Mallampati Score Class I : Soft palate, uvula, fauces, pillars visible Class II: Soft palate, uvula, fauces visible Class III: Soft palate, base of uvula visible Class IV: Only hard plate visible Mallampati Classification: Class II Surgeon: roland Diagnosis: upper gi bleed Surgical Procedure: egd/peg Social History: smoking - nonsmoker Family History: no anesthesia problems Allergies: Coded Allergies: CODEINE (Unverified Allergy, Unknown, 01/10/17) PENICILLINS (Unverified Allergy, Unknown, 01/10/17) Medications: see eMAR Past Medical History Cardiovascular: Reports: other - hypotension, pacemaker Pulmonary: Reports: asthma, COPD, other - tracheostomy Gastrointestinal/Genitourinary: Reports: other - uti Neurologic/Psychiatric: Reports: other - mental retardation Endocrine: Reports: DM Hematology/Immune: Reports: anemia, other - sepsis, Anesthesia Pre-op Phys. Exam Physician Exam Last Vital Signs Date Time Temp Pulse Resp B/P (MAP) Pulse Ox O2 Delivery O2 Flow Rate FiO2 01/12/17 05:19 83 18 35 01/12/17 04:00 100.0 136/68 98 Mechanical Ventilator 01/12/17 01:45 15.0 Constitutional: NAD Neurologic: other - responsive to painful stimuli Respiratory: other - tracheostomy, vent fio20.35, peep5, vt400, ac10 Gastrointestinal: S/NT/ND Airway Exam Mallampati Score: Class II MO: limited Neck: tracheostomy TMD: 1fb ROM: limited Teeth: missing Anesthesia Pre-op A/P Labs Hematology Test 01/12/17 03:15 White Blood Count 20.7 K/UL (4.8-10.8) H Red Blood Count 2.23 M/UL (4.20-5.40) L Hemoglobin 7.2 G/DL (12.0-16.0) L Hematocrit 21.8 % (37.0-47.0) L Mean Corpuscular Volume 98 FL (80-99) Mean Corpuscular Hemoglobin 32.4 PG (27.0-31.0) H Mean Corpuscular Hemoglobin Concent 33.2 G/DL (32.0-36.0) Red Cell Distribution Width 13.9 % (11.6-14.8) Platelet Count 392 K/UL (150-450) Mean Platelet Volume 7.9 FL (6.5-10.1) Neutrophils (%) (Auto) % (45.0-75.0) Lymphocytes (%) (Auto) % (20.0-45.0) Monocytes (%) (Auto) % (1.0-10.0) Eosinophils (%) (Auto) % (0.0-3.0) Basophils (%) (Auto) % (0.0-2.0) Neutrophils % (Manual) Pending Lymphocytes % (Manual) Pending Platelet Estimate Pending Platelet Morphology Pending Chemistry Test 01/12/17 03:15 Sodium Level 141 MMOL/L (136-145) Potassium Level 3.4 MMOL/L (3.5-5.1) L Chloride Level 108 MMOL/L (98-107) H Carbon Dioxide Level 24 MMOL/L (21-32) Anion Gap 9 mmol/L (5-15) Blood Urea Nitrogen 23 mg/dL (7-18) H Creatinine 1.0 MG/DL (0.55-1.30) Estimat Glomerular Filtration Rate mL/min (>60) Glucose Level 91 MG/DL (74-106) Calcium Level 7.7 MG/DL (8.5-10.1) L Iron Level 186 ug/dL (50-175) H Total Iron Binding Capacity 171 ug/dL (250-450) L Percent Iron Saturation 109 % (15-50) H Unsaturated Iron Binding -15 ug/dL (112-346) L Total Bilirubin 0.2 MG/DL (0.2-1.0) Aspartate Amino Transf (AST/SGOT) 15 U/L (15-37) Alanine Aminotransferase (ALT/SGPT) 10 U/L (12-78) L Alkaline Phosphatase 93 U/L (46-116) Total Protein 5.0 G/DL (6.4-8.2) L Albumin 1.3 G/DL (3.4-5.0) L Globulin 3.7 g/dL Albumin/Globulin Ratio 0.4 (1.0-2.7) L Amylase Level 24 U/L (25-115) L Lipase 61 U/L (73-393) L Risk Assessment & Plan Assessment: asa4 Plan: mac Pre-Antibiotics Drug: FATMATA Ross Jan 12, 2017 06:30
--- NOTE | 2017-01-12 08:46 | Consultation ---
DATE OF CONSULTATION: 01/11/2017 CHIEF COMPLAINT: Coffee-ground emesis. HISTORY OF PRESENT ILLNESS: Most of the history per chart. The patient has trach and PEG, was admitted to the hospital with possible pneumonia and coffee-ground emesis. PAST MEDICAL HISTORY: 1. Chronic respiratory failure with trach. 2. Dysphagia with PEG. 3. Diabetes 4. COPD. 5. History of psychosis. 6. Hearing loss. 7. Seizure. 8. Dementia. PAST SURGICAL HISTORY: Tracheostomy. MEDICATIONS: 1. Vitamin c. 2. Depakote. 3. Colace. 4. Insulin. 5. Namenda. 6. Multivitamin. 7. Oxybutynin. 8. Seroquel. 9. Antacids. ALLERGIES: Penicillin and codeine. SOCIAL HISTORY: The patient currently in a [facility]. No history of tobacco, alcohol, or drug abuse. FAMILY HISTORY: Noncontributory. REVIEW OF SYSTEMS: Unable to obtain. PHYSICAL EXAMINATION: VITAL SIGNS: Temperature is 98.6, pulse is 78, respirations 22, and blood pressure is 109/63. HEENT: Normocephalic, atraumatic. Pale conjunctivae. NECK: Supple. No evidence of obvious lymphadenopathy. CARDIOVASCULAR: Regular rhythm. Plus S1 and S2. No obvious murmur. LUNGS: Decreased breath sounds bilaterally. ABDOMEN: Soft and nontender. G-tube in place. No rebound. No guarding. . EXTREMITIES: No cyanosis. No clubbing. No edema. LABORATORY DATA: White count 21,000, hemoglobin 8, hematocrit 22, and platelets 392,000. INR is 1. Iron saturation is 6%. ASSESSMENT AND PLAN: A 76-year-old female with possible pneumonia, possible urinary tract infection, history of chronic respiratory failure, possible gastrointestinal bleed. Reviewing the chart shows the last hemoglobin was 13, now down to 8, and the patient had a coffee-ground emesis, so they all suggest upper gastrointestinal bleeding. Plan to keep her NPO, start on IV Protonix, monitor hemoglobin and hematocrit and transfuse as needed. Left a message for family for possible consent for EGD for tomorrow. I want to thank Dr. Fernandez Gomez for this kind referral. Jaya Nicolette Amor DR: ROGELIO JOB#: [id number] CC: Fernandez Gomez M.D.; Fax#: [phone]
--- NOTE | 2017-01-12 08:46 | Consultation ---
DATE OF CONSULTATION: 01/11/2017 CHIEF COMPLAINT: Coffee-ground emesis. HISTORY OF PRESENT ILLNESS: Most of the history per chart. The patient has trach and PEG, was admitted to the hospital with possible pneumonia and coffee-ground emesis. PAST MEDICAL HISTORY: 1. Chronic respiratory failure with trach. 2. Dysphagia with PEG. 3. Diabetes 4. COPD. 5. History of psychosis. 6. Hearing loss. 7. Seizure. 8. Dementia. PAST SURGICAL HISTORY: Tracheostomy. MEDICATIONS: 1. Vitamin c. 2. Depakote. 3. Colace. 4. Insulin. 5. Namenda. 6. Multivitamin. 7. Oxybutynin. 8. Seroquel. 9. Antacids. ALLERGIES: Penicillin and codeine. SOCIAL HISTORY: The patient currently in a [facility]. No history of tobacco, alcohol, or drug abuse. FAMILY HISTORY: Noncontributory. REVIEW OF SYSTEMS: Unable to obtain. PHYSICAL EXAMINATION: VITAL SIGNS: Temperature is 98.6, pulse is 78, respirations 22, and blood pressure is 109/63. HEENT: Normocephalic, atraumatic. Pale conjunctivae. NECK: Supple. No evidence of obvious lymphadenopathy. CARDIOVASCULAR: Regular rhythm. Plus S1 and S2. No obvious murmur. LUNGS: Decreased breath sounds bilaterally. ABDOMEN: Soft and nontender. G-tube in place. No rebound. No guarding. . EXTREMITIES: No cyanosis. No clubbing. No edema. LABORATORY DATA: White count 21,000, hemoglobin 8, hematocrit 22, and platelets 392,000. INR is 1. Iron saturation is 6%. ASSESSMENT AND PLAN: A 76-year-old female with possible pneumonia, possible urinary tract infection, history of chronic respiratory failure, possible gastrointestinal bleed. Reviewing the chart shows the last hemoglobin was 13, now down to 8, and the patient had a coffee-ground emesis, so they all suggest upper gastrointestinal bleeding. Plan to keep her NPO, start on IV Protonix, monitor hemoglobin and hematocrit and transfuse as needed. Left a message for family for possible consent for EGD for tomorrow. I want to thank Dr. Fernandez Gomez for this kind referral. Jaya Nicolette Amor DR: ROGELIO JOB#: [id number] CC: Fernandez Gomez M.D.; Fax#: [phone]
--- NOTE | 2017-01-12 08:46 | Consultation ---
DATE OF CONSULTATION: 01/11/2017 CHIEF COMPLAINT: Coffee-ground emesis. HISTORY OF PRESENT ILLNESS: Most of the history per chart. The patient has trach and PEG, was admitted to the hospital with possible pneumonia and coffee-ground emesis. PAST MEDICAL HISTORY: 1. Chronic respiratory failure with trach. 2. Dysphagia with PEG. 3. Diabetes 4. COPD. 5. History of psychosis. 6. Hearing loss. 7. Seizure. 8. Dementia. PAST SURGICAL HISTORY: Tracheostomy. MEDICATIONS: 1. Vitamin c. 2. Depakote. 3. Colace. 4. Insulin. 5. Namenda. 6. Multivitamin. 7. Oxybutynin. 8. Seroquel. 9. Antacids. ALLERGIES: Penicillin and codeine. SOCIAL HISTORY: The patient currently in a prison. No history of tobacco, alcohol, or drug abuse. FAMILY HISTORY: Noncontributory. REVIEW OF SYSTEMS: Unable to obtain. PHYSICAL EXAMINATION: VITAL SIGNS: Temperature is 98.6, pulse is 78, respirations 22, and blood pressure is 109/63. HEENT: Normocephalic, atraumatic. Pale conjunctivae. NECK: Supple. No evidence of obvious lymphadenopathy. CARDIOVASCULAR: Regular rhythm. Plus S1 and S2. No obvious murmur. LUNGS: Decreased breath sounds bilaterally. ABDOMEN: Soft and nontender. G-tube in place. No rebound. No guarding. . EXTREMITIES: No cyanosis. No clubbing. No edema. LABORATORY DATA: White count 21,000, hemoglobin 8, hematocrit 22, and platelets 392,000. INR is 1. Iron saturation is 6%. ASSESSMENT AND PLAN: A 76-year-old female with possible pneumonia, possible urinary tract infection, history of chronic respiratory failure, possible gastrointestinal bleed. Reviewing the chart shows the last hemoglobin was 13, now down to 8, and the patient had a coffee-ground emesis, so they all suggest upper gastrointestinal bleeding. Plan to keep her NPO, start on IV Protonix, monitor hemoglobin and hematocrit and transfuse as needed. Left a message for family for possible consent for EGD for tomorrow. I want to thank Dr. Fernandez Gomez for this kind referral. Jaya Nicolette Amor DR: ROGELIO JOB#: [id number] CC: Fernandez Gomez M.D.; Fax#: [phone]
--- NOTE | 2017-01-12 09:00 | Pulmonology Progress Note ---
Assessment/Plan Assessment/Plan 1. Ventilator-dependent respiratory failure. 2. Chronic pneumonia, possible underlying congestive heart failure. 3. Urinary tract infection. 4. Sepsis. 5. Hypertension. 6. Diabetes. continued fever over 101 anemia - need to transfuse (no family to consent) needs EGD (no family to consent) cont vent support abx per ID Subjective ROS Limited/Unobtainable: Yes Allergies: Coded Allergies: CODEINE (Unverified Allergy, Unknown, 01/10/17) PENICILLINS (Unverified Allergy, Unknown, 01/10/17) Objective Last 24 Hour Vital Signs Date Time Temp Pulse Resp B/P (MAP) Pulse Ox O2 Delivery O2 Flow Rate FiO2 01/12/17 08:00 35 01/12/17 07:59 101.8 91 22 94/48 97 Mechanical Ventilator 35 01/12/17 06:59 86 18 98 Mechanical Ventilator 35 01/12/17 06:49 89 20 99 Mechanical Ventilator 35 01/12/17 06:49 35 01/12/17 06:41 80 18 35 01/12/17 05:19 83 18 35 01/12/17 04:12 76 01/12/17 04:00 35 01/12/17 04:00 100.0 95 22 136/68 98 Mechanical Ventilator 35 01/12/17 03:22 85 15 35 01/12/17 01:45 89 13 35 01/12/17 01:45 35 01/12/17 01:45 89 15 99 Mechanical Ventilator 15.0 35 01/12/17 01:33 91 20 100 Mechanical Ventilator 35 01/12/17 00:00 92 01/12/17 00:00 99.1 95 20 117/55 100 Mechanical Ventilator 35 01/11/17 23:20 93 10 35 01/11/17 22:35 35 01/11/17 22:35 84 18 98 Mechanical Ventilator 15.0 35 01/11/17 22:20 84 20 100 Mechanical Ventilator 35 01/11/17 21:20 86 19 35 01/11/17 20:00 99.1 86 17 95/62 100 Mechanical Ventilator 35 01/11/17 20:00 35 01/11/17 20:00 85 01/11/17 19:24 80 14 35 01/11/17 16:46 87 18 35 01/11/17 16:14 97.9 88 15 113/45 100 Mechanical Ventilator 35 01/11/17 16:00 89 01/11/17 16:00 35 01/11/17 15:21 92 16 35 01/11/17 13:50 88 18 97 Mechanical Ventilator 15.0 35 01/11/17 13:41 35 01/11/17 13:41 86 20 99 Mechanical Ventilator 15.0 35 01/11/17 12:57 84 17 35 01/11/17 12:00 71 01/11/17 12:00 35 01/11/17 11:20 85 20 35 01/11/17 11:15 97.3 81 16 118/54 100 Mechanical Ventilator 35 01/11/17 09:12 84 127/65 Objective trach/vent G tube General Appearance: no acute distress HEENT: status post trach Respiratory/Chest: lungs clear, decreased breath sounds Cardiovascular: normal rate Abdomen: soft, non tender Microbiology Date/Time Source Procedure Growth Status 01/10/17 10:15 Blood Blood Culture - Preliminary NO GROWTH AFTER 24 HOURS Resulted 01/10/17 10:00 Blood Blood Culture - Preliminary NO GROWTH AFTER 24 HOURS Resulted 01/10/17 16:40 Indwelling Cath Urine Culture - Preliminary NO GROWTH AFTER 24 HOURS Resulted Laboratory Tests 01/12/17 03:15: White Blood Count 20.7H, Red Blood Count 2.23L, Hemoglobin 7.2L, Hematocrit 21.8L, Mean Corpuscular Volume 98, Mean Corpuscular Hemoglobin 32.4H, Mean Corpuscular Hemoglobin Concent 33.2, Red Cell Distribution Width 13.9, Platelet Count 392, Mean Platelet Volume 7.9, Neutrophils (%) (Auto) , Lymphocytes (%) ( Auto) , Monocytes (%) (Auto) , Eosinophils (%) (Auto) , Basophils (%) (Auto) , Differential Total Cells Counted 100, Neutrophils % (Manual) 76H, Lymphocytes % (Manual) 5L, Monocytes % (Manual) 7, Eosinophils % (Manual) 0, Basophils % ( Manual) 1, Band Neutrophils 11H, Platelet Estimate Adequate, Platelet Morphology Normal, Hypochromasia 1+, Sodium Level 141, Potassium Level 3.4L, Chloride Level 108H, Carbon Dioxide Level 24, Anion Gap 9, Blood Urea Nitrogen 23H, Creatinine 1.0, Estimat Glomerular Filtration Rate , Glucose Level 91, Calcium Level 7.7L, Iron Level 186H, Total Iron Binding Capacity 171L, Percent Iron Saturation 109H, Unsaturated Iron Binding -15L, Total Bilirubin 0.2, Aspartate Amino Transf (AST/SGOT) 15, Alanine Aminotransferase (ALT/SGPT) 10L, Alkaline Phosphatase 93, Total Protein 5.0L, Albumin 1.3L, Globulin 3.7, Albumin /Globulin Ratio 0.4L, Amylase Level 24L, Lipase 61L Current Medications Medications (Trade) Dose Ordered Sig/Sky Route PRN Reason Start Time Stop Time Status Last Admin Dose Admin Acetaminophen (Tylenol) 650 mg Q6H PRN ORAL Mild Pain/Temp > 100.5 01/10/17 18:00 02/09/17 17:59 01/10/17 18:32 Acetylcysteine (Mucomyst) 400 mg Q8HR IN-LINE 01/10/17 22:00 02/09/17 21:59 01/12/17 06:49 Albuterol/ Ipratropium (Albuterol/ Ipratropium) 3 ml Q6HRT HHN 01/11/17 13:00 01/16/17 12:59 01/12/17 06:49 Amlodipine Besylate (Norvasc) 2.5 mg DAILY GT 01/11/17 09:00 02/10/17 08:59 01/11/17 09:12 Amphotericin B Liposome 250 mg/ Dextrose 275 ml @ 135 mls/hr Q24H IV 01/11/17 20:00 01/16/17 19:59 01/11/17 20:46 Ascorbic Acid (Vitamin C) 500 mg DAILY GT 01/11/17 09:00 02/10/17 08:59 01/11/17 09:12 Dextrose (Dextrose 50%) STAT PRN IV Hypoglycemia 01/10/17 14:45 02/09/17 14:44 Dextrose/Sodium Chloride 1,000 ml @ 75 mls/hr [id number] IV 01/11/17 21:45 02/10/17 21:44 01/11/17 21:53 Docusate Sodium (Colace) 250 mg DAILY NG 01/11/17 09:00 02/10/17 08:59 01/11/17 09:11 Memantine (Namenda) 10 mg DAILY GT 01/11/17 09:00 02/10/17 08:59 01/11/17 09:12 Meropenem 1 gm/ Sodium Chloride 110 ml @ 220 mls/hr Q12HR@0100,1300 IVPB 01/10/17 13:30 01/15/17 13:29 01/12/17 02:06 Ondansetron HCl (Zofran) 4 mg Q6H PRN IVP Nausea & Vomiting 01/10/17 14:45 02/09/17 14:44 Pantoprazole (Protonix) 40 mg EVERY 12 HOURS IVP 01/11/17 09:00 02/10/17 08:59 01/11/17 22:54 Risperidone (RisperDAL) 1 mg QHS GT 01/10/17 21:00 02/09/17 20:59 01/11/17 22:54 Valproic Acid (Depakene) 250 mg EVERY 12 HOURS NG 01/10/17 21:00 02/09/17 20:59 01/11/17 22:54 Vancomycin HCl (Vanco rx to dose) 1 ea DAILY PRN MISC Per rx protocol 01/10/17 12:15 02/09/17 12:14 Vancomycin/Sodium Chloride 250 ml @ 166.667 mls/hr Q24H IVPB 01/11/17 20:00 01/16/17 19:59 01/11/17 20:46 MELANIE ENGLISH Jan 12, 2017 09:00
[2017-01-12] MEDS: Acetaminophen 650mg/20.3ml ORAL PRN (09:04)
[2017-01-12] MEDS: Memantine 10mg tab GT SCH (09:04)
[2017-01-12] MEDS: Pantoprazole Inj IVP SCH ×2 (09:04→22:01)
[2017-01-12] MEDS: Docusate 100mg/10ml Liq NG SCH (09:04)
[2017-01-12] MEDS: Valproic Acid 250mg/5ml Liquid NG SCH ×2 (09:05→22:01)
[2017-01-12] MEDS: Ascorbic Acid 500mg tab GT SCH (09:05)
[2017-01-12] MEDS ORDERED: NS 275ml ONE ×2 (10:45→16:00)
[2017-01-12] MEDS ORDERED: Tubing IV Secondary IV ONE ×2 (10:45→16:00)
--- NOTE | 2017-01-12 11:19 | Diagnostic Imaging Report ---
APPROVED REPORT CPT Code: 97800 Present Symptoms Lower Extremity Pain: Bilateral BILATERAL: Imaging reveals a patent deep venous system bilaterally. There is no evidence of thrombus within the femoral, popliteal or tibial segments. The greater saphenous veins are also within normal limits. Doppler indicates normal spontaneous flow within these segments.
--- NOTE | 2017-01-12 11:19 | Diagnostic Imaging Report ---
APPROVED REPORT CPT Code: 88565 Present Symptoms Lower Extremity Pain: Bilateral BILATERAL: Imaging reveals a patent deep venous system bilaterally. There is no evidence of thrombus within the femoral, popliteal or tibial segments. The greater saphenous veins are also within normal limits. Doppler indicates normal spontaneous flow within these segments.
--- NOTE | 2017-01-12 11:19 | Diagnostic Imaging Report ---
APPROVED REPORT CPT Code: 62578 Present Symptoms Lower Extremity Pain: Bilateral BILATERAL: Imaging reveals a patent deep venous system bilaterally. There is no evidence of thrombus within the femoral, popliteal or tibial segments. The greater saphenous veins are also within normal limits. Doppler indicates normal spontaneous flow within these segments.
--- NOTE | 2017-01-12 11:39 | GI Progress Note ---
Assessment/Plan Problems: (1) Anemia due to acute blood loss ICD Codes: D62 - Acute posthemorrhagic anemia SNOMED: 393008887 (2) GI bleed ICD Codes: K92.2 - Gastrointestinal hemorrhage, unspecified SNOMED: 73894950 (3) Severe sepsis ICD Codes: A41.9 - Sepsis, unspecified organism; R65.20 - Severe sepsis without septic shock SNOMED: 71233695 (4) Tracheostomy dependence ICD Codes: Z93.0 - Tracheostomy status SNOMED: 760343905, 898553802 Status: unchanged Status Narrative Discussed with Dr. Amor. Assessment/Plan EGD cancelled today, no consent. maintain NPO + IVFs PPI BID monitor H&H, prn transfusions fu labs The patient was seen and examined at bedside and all new and available data was reviewed in the patients chart. I agree with the above findings, impression and plan. (Patient seen earlier today. Signature stamp does not reflect patient encounter time.). - Theodora Amor MD Subjective Subjective limited Objective Last 24 Hour Vital Signs Date Time Temp Pulse Resp B/P (MAP) Pulse Ox O2 Delivery O2 Flow Rate FiO2 01/12/17 10:42 81 19 35 01/12/17 09:34 99.5 01/12/17 09:02 82 18 35 01/12/17 09:00 82 94/48 01/12/17 08:00 91 01/12/17 08:00 35 01/12/17 07:59 101.8 91 22 94/48 97 Mechanical Ventilator 35 01/12/17 06:59 86 18 98 Mechanical Ventilator 35 01/12/17 06:49 89 20 99 Mechanical Ventilator 35 01/12/17 06:49 35 01/12/17 06:41 80 18 35 01/12/17 05:19 83 18 35 01/12/17 04:12 76 01/12/17 04:00 35 01/12/17 04:00 100.0 95 22 136/68 98 Mechanical Ventilator 35 01/12/17 03:22 85 15 35 01/12/17 01:45 89 13 35 01/12/17 01:45 35 01/12/17 01:45 89 15 99 Mechanical Ventilator 15.0 35 01/12/17 01:33 91 20 100 Mechanical Ventilator 35 01/12/17 00:00 92 01/12/17 00:00 99.1 95 20 117/55 100 Mechanical Ventilator 35 01/11/17 23:20 93 10 35 01/11/17 22:35 35 01/11/17 22:35 84 18 98 Mechanical Ventilator 15.0 35 01/11/17 22:20 84 20 100 Mechanical Ventilator 35 01/11/17 21:20 86 19 35 01/11/17 20:00 99.1 86 17 95/62 100 Mechanical Ventilator 35 01/11/17 20:00 35 01/11/17 20:00 85 01/11/17 19:24 80 14 35 01/11/17 16:46 87 18 35 01/11/17 16:14 97.9 88 15 113/45 100 Mechanical Ventilator 35 01/11/17 16:00 89 01/11/17 16:00 35 01/11/17 15:21 92 16 35 01/11/17 13:50 88 18 97 Mechanical Ventilator 15.0 35 01/11/17 13:41 35 01/11/17 13:41 86 20 99 Mechanical Ventilator 15.0 35 01/11/17 12:57 84 17 35 01/11/17 12:00 71 01/11/17 12:00 35 Intake and Output 01/12/17 01/13/17 19:00 07:00 # Bowel Movements 1 Laboratory Tests Test 01/12/17 03:15 White Blood Count 20.7 K/UL (4.8-10.8) H Red Blood Count 2.23 M/UL (4.20-5.40) L Hemoglobin 7.2 G/DL (12.0-16.0) L Hematocrit 21.8 % (37.0-47.0) L Mean Corpuscular Volume 98 FL (80-99) Mean Corpuscular Hemoglobin 32.4 PG (27.0-31.0) H Mean Corpuscular Hemoglobin Concent 33.2 G/DL (32.0-36.0) Red Cell Distribution Width 13.9 % (11.6-14.8) Platelet Count 392 K/UL (150-450) Mean Platelet Volume 7.9 FL (6.5-10.1) Neutrophils (%) (Auto) % (45.0-75.0) Lymphocytes (%) (Auto) % (20.0-45.0) Monocytes (%) (Auto) % (1.0-10.0) Eosinophils (%) (Auto) % (0.0-3.0) Basophils (%) (Auto) % (0.0-2.0) Differential Total Cells Counted 100 Neutrophils % (Manual) 76 % (45-75) H Lymphocytes % (Manual) 5 % (20-45) L Monocytes % (Manual) 7 % (1-10) Eosinophils % (Manual) 0 % (0-3) Basophils % (Manual) 1 % (0-2) Band Neutrophils 11 % (0-8) H Platelet Estimate Adequate Platelet Morphology Normal Hypochromasia 1+ Sodium Level 141 MMOL/L (136-145) Potassium Level 3.4 MMOL/L (3.5-5.1) L Chloride Level 108 MMOL/L (98-107) H Carbon Dioxide Level 24 MMOL/L (21-32) Anion Gap 9 mmol/L (5-15) Blood Urea Nitrogen 23 mg/dL (7-18) H Creatinine 1.0 MG/DL (0.55-1.30) Estimat Glomerular Filtration Rate mL/min (>60) Glucose Level 91 MG/DL (74-106) Calcium Level 7.7 MG/DL (8.5-10.1) L Iron Level 186 ug/dL (50-175) H Total Iron Binding Capacity 171 ug/dL (250-450) L Percent Iron Saturation 109 % (15-50) H Unsaturated Iron Binding -15 ug/dL (112-346) L Total Bilirubin 0.2 MG/DL (0.2-1.0) Aspartate Amino Transf (AST/SGOT) 15 U/L (15-37) Alanine Aminotransferase (ALT/SGPT) 10 U/L (12-78) L Alkaline Phosphatase 93 U/L (46-116) Total Protein 5.0 G/DL (6.4-8.2) L Albumin 1.3 G/DL (3.4-5.0) L Globulin 3.7 g/dL Albumin/Globulin Ratio 0.4 (1.0-2.7) L Amylase Level 24 U/L (25-115) L Lipase 61 U/L (73-393) L Height (Feet): 5 Height (Inches): 2.00 Weight (Pounds): 105 General Appearance: no apparent distress Cardiovascular: normal rate Respiratory/Chest: other - mech vent Abdominal Exam: GT site - c/d/i Rosibel Newton N.P. Jan 12, 2017 11:39 MICHELLE AMOR Jan 13, 2017 10:27
--- NOTE | 2017-01-12 11:40 | Diagnostic Imaging Report ---
Indication: Shortness of breath Technique: One view of the chest Comparison: 04/03/17 Findings: Right-sided pleural effusion is stable or perhaps minimally increased. Bilateral interstitial congestion again demonstrated, stable on the right, improved on the left. Extensive retrocardiac consolidation and large left pleural effusion are unchanged. Tracheostomy remains Impression: Improved parenchymal disease in the left upper lung. Otherwise stable findings as described, over 2 days
[2017-01-12] MEDS: D5 1/2NS 1,000 ML IV SCH (11:50)
--- NOTE | 2017-01-12 15:22 | General Progress Note ---
Assessment/Plan Problem List: (1) GI bleed ICD Codes: K92.2 - Gastrointestinal hemorrhage, unspecified SNOMED: 68388298 (2) Sepsis ICD Codes: A41.9 - Sepsis, unspecified organism SNOMED: 07751181 (3) HCAP (healthcare-associated pneumonia) ICD Codes: J18.9 - Pneumonia, unspecified organism SNOMED: 262949065 (4) UTI (urinary tract infection) ICD Codes: N39.0 - Urinary tract infection, site not specified SNOMED: 51451749 Status: progressing Assessment/Plan gi bleed sepsis moniter for gi bleeding check h/h trach and peg nnonverbal moniter for bleeding Subjective ROS Limited/Unobtainable: Yes Constitutional: Reports: no symptoms Allergies: Coded Allergies: CODEINE (Unverified Allergy, Unknown, 01/10/17) PENICILLINS (Unverified Allergy, Unknown, 01/10/17) Objective Last 24 Hour Vital Signs Date Time Temp Pulse Resp B/P (MAP) Pulse Ox O2 Delivery O2 Flow Rate FiO2 01/12/17 15:08 Mechanical Ventilator 01/12/17 13:04 87 10 100 Mechanical Ventilator 35 01/12/17 13:02 83 10 35 01/12/17 12:50 93 10 99 Mechanical Ventilator 35 01/12/17 12:50 35 01/12/17 12:00 97.7 93 20 112/52 99 Mechanical Ventilator 35 01/12/17 12:00 78 01/12/17 12:00 35 01/12/17 10:42 81 19 35 01/12/17 09:34 99.5 01/12/17 09:02 82 18 35 01/12/17 09:00 82 94/48 01/12/17 08:00 91 01/12/17 08:00 35 01/12/17 07:59 101.8 91 22 94/48 97 Mechanical Ventilator 35 01/12/17 06:59 86 18 98 Mechanical Ventilator 35 01/12/17 06:49 89 20 99 Mechanical Ventilator 35 01/12/17 06:49 35 01/12/17 06:41 80 18 35 01/12/17 05:19 83 18 35 01/12/17 04:12 76 01/12/17 04:00 35 01/12/17 04:00 100.0 95 22 136/68 98 Mechanical Ventilator 35 01/12/17 03:22 85 15 35 01/12/17 01:45 89 13 35 01/12/17 01:45 35 01/12/17 01:45 89 15 99 Mechanical Ventilator 15.0 35 01/12/17 01:33 91 20 100 Mechanical Ventilator 35 01/12/17 00:00 92 01/12/17 00:00 99.1 95 20 117/55 100 Mechanical Ventilator 35 01/11/17 23:20 93 10 35 01/11/17 22:35 35 01/11/17 22:35 84 18 98 Mechanical Ventilator 15.0 35 01/11/17 22:20 84 20 100 Mechanical Ventilator 35 01/11/17 21:20 86 19 35 01/11/17 20:00 99.1 86 17 95/62 100 Mechanical Ventilator 35 01/11/17 20:00 35 01/11/17 20:00 85 01/11/17 19:24 80 14 35 01/11/17 16:46 87 18 35 01/11/17 16:14 97.9 88 15 113/45 100 Mechanical Ventilator 35 01/11/17 16:00 89 01/11/17 16:00 35 Intake and Output 01/12/17 01/13/17 19:00 07:00 # Bowel Movements 1 Laboratory Tests 01/12/17 03:15: White Blood Count 20.7H, Red Blood Count 2.23L, Hemoglobin 7.2L, Hematocrit 21.8L, Mean Corpuscular Volume 98, Mean Corpuscular Hemoglobin 32.4H, Mean Corpuscular Hemoglobin Concent 33.2, Red Cell Distribution Width 13.9, Platelet Count 392, Mean Platelet Volume 7.9, Neutrophils (%) (Auto) , Lymphocytes (%) ( Auto) , Monocytes (%) (Auto) , Eosinophils (%) (Auto) , Basophils (%) (Auto) , Differential Total Cells Counted 100, Neutrophils % (Manual) 76H, Lymphocytes % (Manual) 5L, Monocytes % (Manual) 7, Eosinophils % (Manual) 0, Basophils % ( Manual) 1, Band Neutrophils 11H, Platelet Estimate Adequate, Platelet Morphology Normal, Hypochromasia 1+, Sodium Level 141, Potassium Level 3.4L, Chloride Level 108H, Carbon Dioxide Level 24, Anion Gap 9, Blood Urea Nitrogen 23H, Creatinine 1.0, Estimat Glomerular Filtration Rate , Glucose Level 91, Calcium Level 7.7L, Iron Level 186H, Total Iron Binding Capacity 171L, Percent Iron Saturation 109H, Unsaturated Iron Binding -15L, Total Bilirubin 0.2, Aspartate Amino Transf (AST/SGOT) 15, Alanine Aminotransferase (ALT/SGPT) 10L, Alkaline Phosphatase 93, Total Protein 5.0L, Albumin 1.3L, Globulin 3.7, Albumin /Globulin Ratio 0.4L, Amylase Level 24L, Lipase 61L Height (Feet): 5 Height (Inches): 2.00 Weight (Pounds): 105 Cardiovascular: normal rate Respiratory/Chest: lungs clear Abdomen: soft Fernandez Gomez MD Jan 12, 2017 15:22
--- NOTE | 2017-01-12 15:22 | General Progress Note ---
Assessment/Plan Problem List: (1) GI bleed ICD Codes: K92.2 - Gastrointestinal hemorrhage, unspecified SNOMED: 09989879 (2) Sepsis ICD Codes: A41.9 - Sepsis, unspecified organism SNOMED: 38663386 (3) HCAP (healthcare-associated pneumonia) ICD Codes: J18.9 - Pneumonia, unspecified organism SNOMED: 463472688 (4) UTI (urinary tract infection) ICD Codes: N39.0 - Urinary tract infection, site not specified SNOMED: 79166465 Status: progressing Assessment/Plan gi bleed sepsis moniter for gi bleeding check h/h trach and peg nnonverbal moniter for bleeding Subjective ROS Limited/Unobtainable: Yes Constitutional: Reports: no symptoms Allergies: Coded Allergies: CODEINE (Unverified Allergy, Unknown, 01/10/17) PENICILLINS (Unverified Allergy, Unknown, 01/10/17) Objective Last 24 Hour Vital Signs Date Time Temp Pulse Resp B/P (MAP) Pulse Ox O2 Delivery O2 Flow Rate FiO2 01/12/17 15:08 Mechanical Ventilator 01/12/17 13:04 87 10 100 Mechanical Ventilator 35 01/12/17 13:02 83 10 35 01/12/17 12:50 93 10 99 Mechanical Ventilator 35 01/12/17 12:50 35 01/12/17 12:00 97.7 93 20 112/52 99 Mechanical Ventilator 35 01/12/17 12:00 78 01/12/17 12:00 35 01/12/17 10:42 81 19 35 01/12/17 09:34 99.5 01/12/17 09:02 82 18 35 01/12/17 09:00 82 94/48 01/12/17 08:00 91 01/12/17 08:00 35 01/12/17 07:59 101.8 91 22 94/48 97 Mechanical Ventilator 35 01/12/17 06:59 86 18 98 Mechanical Ventilator 35 01/12/17 06:49 89 20 99 Mechanical Ventilator 35 01/12/17 06:49 35 01/12/17 06:41 80 18 35 01/12/17 05:19 83 18 35 01/12/17 04:12 76 01/12/17 04:00 35 01/12/17 04:00 100.0 95 22 136/68 98 Mechanical Ventilator 35 01/12/17 03:22 85 15 35 01/12/17 01:45 89 13 35 01/12/17 01:45 35 01/12/17 01:45 89 15 99 Mechanical Ventilator 15.0 35 01/12/17 01:33 91 20 100 Mechanical Ventilator 35 01/12/17 00:00 92 01/12/17 00:00 99.1 95 20 117/55 100 Mechanical Ventilator 35 01/11/17 23:20 93 10 35 01/11/17 22:35 35 01/11/17 22:35 84 18 98 Mechanical Ventilator 15.0 35 01/11/17 22:20 84 20 100 Mechanical Ventilator 35 01/11/17 21:20 86 19 35 01/11/17 20:00 99.1 86 17 95/62 100 Mechanical Ventilator 35 01/11/17 20:00 35 01/11/17 20:00 85 01/11/17 19:24 80 14 35 01/11/17 16:46 87 18 35 01/11/17 16:14 97.9 88 15 113/45 100 Mechanical Ventilator 35 01/11/17 16:00 89 01/11/17 16:00 35 Intake and Output 01/12/17 01/13/17 19:00 07:00 # Bowel Movements 1 Laboratory Tests 01/12/17 03:15: White Blood Count 20.7H, Red Blood Count 2.23L, Hemoglobin 7.2L, Hematocrit 21.8L, Mean Corpuscular Volume 98, Mean Corpuscular Hemoglobin 32.4H, Mean Corpuscular Hemoglobin Concent 33.2, Red Cell Distribution Width 13.9, Platelet Count 392, Mean Platelet Volume 7.9, Neutrophils (%) (Auto) , Lymphocytes (%) ( Auto) , Monocytes (%) (Auto) , Eosinophils (%) (Auto) , Basophils (%) (Auto) , Differential Total Cells Counted 100, Neutrophils % (Manual) 76H, Lymphocytes % (Manual) 5L, Monocytes % (Manual) 7, Eosinophils % (Manual) 0, Basophils % ( Manual) 1, Band Neutrophils 11H, Platelet Estimate Adequate, Platelet Morphology Normal, Hypochromasia 1+, Sodium Level 141, Potassium Level 3.4L, Chloride Level 108H, Carbon Dioxide Level 24, Anion Gap 9, Blood Urea Nitrogen 23H, Creatinine 1.0, Estimat Glomerular Filtration Rate , Glucose Level 91, Calcium Level 7.7L, Iron Level 186H, Total Iron Binding Capacity 171L, Percent Iron Saturation 109H, Unsaturated Iron Binding -15L, Total Bilirubin 0.2, Aspartate Amino Transf (AST/SGOT) 15, Alanine Aminotransferase (ALT/SGPT) 10L, Alkaline Phosphatase 93, Total Protein 5.0L, Albumin 1.3L, Globulin 3.7, Albumin /Globulin Ratio 0.4L, Amylase Level 24L, Lipase 61L Height (Feet): 5 Height (Inches): 2.00 Weight (Pounds): 105 Cardiovascular: normal rate Respiratory/Chest: lungs clear Abdomen: soft Fernandez Gomez MD Jan 12, 2017 15:22
--- NOTE | 2017-01-12 15:22 | General Progress Note ---
Assessment/Plan Problem List: (1) GI bleed ICD Codes: K92.2 - Gastrointestinal hemorrhage, unspecified SNOMED: 22826765 (2) Sepsis ICD Codes: A41.9 - Sepsis, unspecified organism SNOMED: 66718773 (3) HCAP (healthcare-associated pneumonia) ICD Codes: J18.9 - Pneumonia, unspecified organism SNOMED: 958007108 (4) UTI (urinary tract infection) ICD Codes: N39.0 - Urinary tract infection, site not specified SNOMED: 51053223 Status: progressing Assessment/Plan gi bleed sepsis moniter for gi bleeding check h/h trach and peg nnonverbal moniter for bleeding Subjective ROS Limited/Unobtainable: Yes Constitutional: Reports: no symptoms Allergies: Coded Allergies: CODEINE (Unverified Allergy, Unknown, 01/10/17) PENICILLINS (Unverified Allergy, Unknown, 01/10/17) Objective Last 24 Hour Vital Signs Date Time Temp Pulse Resp B/P (MAP) Pulse Ox O2 Delivery O2 Flow Rate FiO2 01/12/17 15:08 Mechanical Ventilator 01/12/17 13:04 87 10 100 Mechanical Ventilator 35 01/12/17 13:02 83 10 35 01/12/17 12:50 93 10 99 Mechanical Ventilator 35 01/12/17 12:50 35 01/12/17 12:00 97.7 93 20 112/52 99 Mechanical Ventilator 35 01/12/17 12:00 78 01/12/17 12:00 35 01/12/17 10:42 81 19 35 01/12/17 09:34 99.5 01/12/17 09:02 82 18 35 01/12/17 09:00 82 94/48 01/12/17 08:00 91 01/12/17 08:00 35 01/12/17 07:59 101.8 91 22 94/48 97 Mechanical Ventilator 35 01/12/17 06:59 86 18 98 Mechanical Ventilator 35 01/12/17 06:49 89 20 99 Mechanical Ventilator 35 01/12/17 06:49 35 01/12/17 06:41 80 18 35 01/12/17 05:19 83 18 35 01/12/17 04:12 76 01/12/17 04:00 35 01/12/17 04:00 100.0 95 22 136/68 98 Mechanical Ventilator 35 01/12/17 03:22 85 15 35 01/12/17 01:45 89 13 35 01/12/17 01:45 35 01/12/17 01:45 89 15 99 Mechanical Ventilator 15.0 35 01/12/17 01:33 91 20 100 Mechanical Ventilator 35 01/12/17 00:00 92 01/12/17 00:00 99.1 95 20 117/55 100 Mechanical Ventilator 35 01/11/17 23:20 93 10 35 01/11/17 22:35 35 01/11/17 22:35 84 18 98 Mechanical Ventilator 15.0 35 01/11/17 22:20 84 20 100 Mechanical Ventilator 35 01/11/17 21:20 86 19 35 01/11/17 20:00 99.1 86 17 95/62 100 Mechanical Ventilator 35 01/11/17 20:00 35 01/11/17 20:00 85 01/11/17 19:24 80 14 35 01/11/17 16:46 87 18 35 01/11/17 16:14 97.9 88 15 113/45 100 Mechanical Ventilator 35 01/11/17 16:00 89 01/11/17 16:00 35 Intake and Output 01/12/17 01/13/17 19:00 07:00 # Bowel Movements 1 Laboratory Tests 01/12/17 03:15: White Blood Count 20.7H, Red Blood Count 2.23L, Hemoglobin 7.2L, Hematocrit 21.8L, Mean Corpuscular Volume 98, Mean Corpuscular Hemoglobin 32.4H, Mean Corpuscular Hemoglobin Concent 33.2, Red Cell Distribution Width 13.9, Platelet Count 392, Mean Platelet Volume 7.9, Neutrophils (%) (Auto) , Lymphocytes (%) ( Auto) , Monocytes (%) (Auto) , Eosinophils (%) (Auto) , Basophils (%) (Auto) , Differential Total Cells Counted 100, Neutrophils % (Manual) 76H, Lymphocytes % (Manual) 5L, Monocytes % (Manual) 7, Eosinophils % (Manual) 0, Basophils % ( Manual) 1, Band Neutrophils 11H, Platelet Estimate Adequate, Platelet Morphology Normal, Hypochromasia 1+, Sodium Level 141, Potassium Level 3.4L, Chloride Level 108H, Carbon Dioxide Level 24, Anion Gap 9, Blood Urea Nitrogen 23H, Creatinine 1.0, Estimat Glomerular Filtration Rate , Glucose Level 91, Calcium Level 7.7L, Iron Level 186H, Total Iron Binding Capacity 171L, Percent Iron Saturation 109H, Unsaturated Iron Binding -15L, Total Bilirubin 0.2, Aspartate Amino Transf (AST/SGOT) 15, Alanine Aminotransferase (ALT/SGPT) 10L, Alkaline Phosphatase 93, Total Protein 5.0L, Albumin 1.3L, Globulin 3.7, Albumin /Globulin Ratio 0.4L, Amylase Level 24L, Lipase 61L Height (Feet): 5 Height (Inches): 2.00 Weight (Pounds): 105 Cardiovascular: normal rate Respiratory/Chest: lungs clear Abdomen: soft Fernandez Gomez MD Jan 12, 2017 15:22
[2017-01-12] MEDS ORDERED: D5 1/2NS 1000ml IV ONE (16:00)
[2017-01-12] MEDS ORDERED: NS 500ML IV ONE (16:00)
--- NOTE | 2017-01-12 17:34 | Wound Care Consultation ---
Wound Assessment Wound Assessment #1: Wound Number: 1 Wound Present on Admission: Yes New Wound: No Status Change of Wound: No Wound Location Body Site Modif: mid Wound Location Body Site: sacral Wound Type: pressure ulcer Jessika Test: Does not Jessika Pressure Ulcer Stage: Unstageable Wound Thickness: Full Thickness Wound Length: 4.5 Wound Width: 4.5 Wound Depth: utd Percent of Wound [place]/Red: 20 Percent of Wound Bed Yellow/Wh: 80 Wound Drainage Description: Serosanguineous Wound Drainage Amount: Moderate Wound Drainage Odor: None/Absent Tissue Surrounding Wound: Indurated Wound General Appearance: Reddened - yellow, Draining Wound Assessment #2: Wound Number: 2 Wound Present on Admission: Yes New Wound: No Status Change of Wound: No Wound Location Body Site Modif: left Wound Location Body Site: buttocks Wound Type: pressure ulcer Jessika Test: Does not Jessika Pressure Ulcer Stage: Deep Tissue Injury Wound Thickness: Full Thickness Wound Length: 3.5 Wound Width: 3.5 Wound Depth: utd Percent of Wound Purple/Maroon: 100 Wound Drainage Amount: None Wound Drainage Odor: None/Absent Tissue Surrounding Wound: Erythemic Wound General Appearance: Reddened - purple Wound Assessment #3: Wound Number: 3 Wound Present on Admission: Yes New Wound: No Status Change of Wound: No Wound Location Body Site Modif: right Wound Location Body Site: buttocks Wound Type: pressure ulcer Jessika Test: Does not Jessika Pressure Ulcer Stage: Deep Tissue Injury Wound Thickness: Full Thickness Wound Length: 2.0 Wound Width: 2.0 Wound Depth: utd Percent of Wound Purple/Maroon: 100 Wound Drainage Amount: None Wound Drainage Odor: None/Absent Tissue Surrounding Wound: Erythemic Wound General Appearance: Reddened - purple Wound Assessment #4: Wound Number: 4 Wound Present on Admission: Yes New Wound: No Status Change of Wound: No Wound Location Body Site Modif: right Wound Location Body Site: other - cheek Wound Type: pressure ulcer Jessika Test: Does not Jessika Pressure Ulcer Stage: Deep Tissue Injury Wound Thickness: Full Thickness Wound Length: 2.0 Wound Width: 2.0 Wound Depth: utd Percent of Wound Purple/Maroon: 100 Wound Drainage Amount: None Wound Drainage Odor: None/Absent Tissue Surrounding Wound: Intact Wound General Appearance: Reddened - purple Wound Comment #1 Sacral unstageable pressure ulcer #2 Left buttock DTI pressure ulcer #3 Right buttock DTI pressure ulcer #4 Right cheek DTI pressure ulcer possible caused by medical devices #5 Nose with dry scab etiology unknown Recommendation -Local wound care per protocol -Keep clean and dry -Turn and reposition -Optimize nutrition -Offload both heels -Heel protector on both heels -Low air loss mattress -Assess and f/u accordingly for any changes ZULEYKA LONGORIA RN Jan 12, 2017 17:34
--- NOTE | 2017-01-12 22:31 | General Progress Note ---
Assessment/Plan Assessment/Plan # GI bleed anemia --> hx of hematemesis --> ferritin elevated --> GI unable to do egd, no consent available. # Anemia due to chronic disease --> hgb goal is >7 --> transfuse if hgb below 7 # HCAP (healthcare-associated pneumonia) - on antibiotics # UTI (urinary tract infection) # Sepsis # COPD exacerbation - on nebulizer prn Subjective ROS Limited/Unobtainable: Yes Hematologic/Lymphatic: Reports: anemia Allergies: Coded Allergies: CODEINE (Unverified Allergy, Unknown, 01/10/17) PENICILLINS (Unverified Allergy, Unknown, 01/10/17) Subjective given transfusion, monitoring h/h Objective Last 24 Hour Vital Signs Date Time Temp Pulse Resp B/P (MAP) Pulse Ox O2 Delivery O2 Flow Rate FiO2 01/12/17 21:30 75 11 35 01/12/17 20:18 97.8 80 18 107/49 98 Mechanical Ventilator 35 01/12/17 20:00 76 01/12/17 20:00 35 01/12/17 19:41 78 11 100 Mechanical Ventilator 35 01/12/17 19:40 78 11 35 01/12/17 19:29 98.1 80 18 107/56 99 Mechanical Ventilator 35 01/12/17 17:28 86 22 35 01/12/17 17:07 98.1 89 18 146/73 99 Mechanical Ventilator 35 01/12/17 16:26 98.4 89 14 131/54 99 Mechanical Ventilator 35 01/12/17 16:00 35 01/12/17 16:00 88 01/12/17 15:20 81 15 35 01/12/17 15:08 Mechanical Ventilator 01/12/17 13:04 87 10 100 Mechanical Ventilator 35 01/12/17 13:02 83 10 35 01/12/17 12:50 93 10 99 Mechanical Ventilator 35 01/12/17 12:50 35 01/12/17 12:00 97.7 93 20 112/52 99 Mechanical Ventilator 35 01/12/17 12:00 78 01/12/17 12:00 35 01/12/17 10:42 81 19 35 01/12/17 09:34 99.5 01/12/17 09:02 82 18 35 01/12/17 09:00 82 94/48 01/12/17 08:00 91 01/12/17 08:00 35 01/12/17 07:59 101.8 91 22 94/48 97 Mechanical Ventilator 35 01/12/17 06:59 86 18 98 Mechanical Ventilator 35 01/12/17 06:49 89 20 99 Mechanical Ventilator 35 01/12/17 06:49 35 01/12/17 06:41 80 18 35 01/12/17 05:19 83 18 35 01/12/17 04:12 76 01/12/17 04:00 35 01/12/17 04:00 100.0 95 22 136/68 98 Mechanical Ventilator 35 01/12/17 03:22 85 15 35 01/12/17 01:45 89 13 35 01/12/17 01:45 35 01/12/17 01:45 89 15 99 Mechanical Ventilator 15.0 35 01/12/17 01:33 91 20 100 Mechanical Ventilator 35 01/12/17 00:00 92 01/12/17 00:00 99.1 95 20 117/55 100 Mechanical Ventilator 35 01/11/17 23:20 93 10 35 01/11/17 22:35 35 01/11/17 22:35 84 18 98 Mechanical Ventilator 15.0 35 Intake and Output 01/12/17 01/13/17 19:00 07:00 Intake Total 750 ml Balance 750 ml IV Total 750 ml # Voids 2 # Bowel Movements 3 Laboratory Tests 01/12/17 03:15: White Blood Count 20.7H, Red Blood Count 2.23L, Hemoglobin 7.2L, Hematocrit 21.8L, Mean Corpuscular Volume 98, Mean Corpuscular Hemoglobin 32.4H, Mean Corpuscular Hemoglobin Concent 33.2, Red Cell Distribution Width 13.9, Platelet Count 392, Mean Platelet Volume 7.9, Neutrophils (%) (Auto) , Lymphocytes (%) ( Auto) , Monocytes (%) (Auto) , Eosinophils (%) (Auto) , Basophils (%) (Auto) , Differential Total Cells Counted 100, Neutrophils % (Manual) 76H, Lymphocytes % (Manual) 5L, Monocytes % (Manual) 7, Eosinophils % (Manual) 0, Basophils % ( Manual) 1, Band Neutrophils 11H, Platelet Estimate Adequate, Platelet Morphology Normal, Hypochromasia 1+, Sodium Level 141, Potassium Level 3.4L, Chloride Level 108H, Carbon Dioxide Level 24, Anion Gap 9, Blood Urea Nitrogen 23H, Creatinine 1.0, Estimat Glomerular Filtration Rate , Glucose Level 91, Calcium Level 7.7L, Iron Level 186H, Total Iron Binding Capacity 171L, Percent Iron Saturation 109H, Unsaturated Iron Binding -15L, Total Bilirubin 0.2, Aspartate Amino Transf (AST/SGOT) 15, Alanine Aminotransferase (ALT/SGPT) 10L, Alkaline Phosphatase 93, Total Protein 5.0L, Albumin 1.3L, Globulin 3.7, Albumin /Globulin Ratio 0.4L, Amylase Level 24L, Lipase 61L Height (Feet): 5 Height (Inches): 2.00 Weight (Pounds): 105 General Appearance: no apparent distress EENT: normal ENT inspection Respiratory/Chest: chest wall non-tender, lungs clear Extremities: non-tender Reinier Lou Jan 12, 2017 22:31
--- NOTE | 2017-01-12 22:47 | Infectious Diseases Prog Note ---
Assessment/Plan Problems: (1) HCAP (healthcare-associated pneumonia) Assessment & Plan: with bilateral infiltrates, await sputum culture , continue meropenem , and vancomycin empirically for now (2) UTI (urinary tract infection) Assessment & Plan: await urine culture, continue meropenem (3) Sepsis Assessment & Plan: due to the above, on vancomycin and meropenem pending culture results (4) GI bleed Assessment & Plan: monitor H/H, transfuse as needed , GI is following (5) COPD exacerbation Assessment & Plan: continue nebulizer therapy, monitor CXR (6) Open nasal wound Assessment & Plan: not deep to the nasal cavity with no necrosis , will stop amphotericin empirically, since no evidenc of fungal growth , and she had previously candiduria at [facility], await culture results (7) Sacral wound Assessment & Plan: continue local wound care and off loading , consult wound care Subjective ROS Limited/Unobtainable: Yes Allergies: Coded Allergies: CODEINE (Unverified Allergy, Unknown, 01/10/17) PENICILLINS (Unverified Allergy, Unknown, 01/10/17) Subjective she is lying in bed, comfortable, on mechanical ventilation with trach, afebrile , open eyes spontaneously , no GI bleeding Objective Vital Signs Last 24 Hour Vital Signs Date Time Temp Pulse Resp B/P (MAP) Pulse Ox O2 Delivery O2 Flow Rate FiO2 01/12/17 21:30 75 11 35 01/12/17 20:18 97.8 80 18 107/49 98 Mechanical Ventilator 35 01/12/17 20:00 76 01/12/17 20:00 35 01/12/17 19:41 78 11 100 Mechanical Ventilator 35 01/12/17 19:40 78 11 35 01/12/17 19:29 98.1 80 18 107/56 99 Mechanical Ventilator 35 01/12/17 17:28 86 22 35 01/12/17 17:07 98.1 89 18 146/73 99 Mechanical Ventilator 35 01/12/17 16:26 98.4 89 14 131/54 99 Mechanical Ventilator 35 01/12/17 16:00 35 01/12/17 16:00 88 01/12/17 15:20 81 15 35 01/12/17 15:08 Mechanical Ventilator 01/12/17 13:04 87 10 100 Mechanical Ventilator 35 01/12/17 13:02 83 10 35 01/12/17 12:50 93 10 99 Mechanical Ventilator 35 01/12/17 12:50 35 01/12/17 12:00 97.7 93 20 112/52 99 Mechanical Ventilator 35 01/12/17 12:00 78 01/12/17 12:00 35 01/12/17 10:42 81 19 35 01/12/17 09:34 99.5 01/12/17 09:02 82 18 35 01/12/17 09:00 82 94/48 01/12/17 08:00 91 01/12/17 08:00 35 01/12/17 07:59 101.8 91 22 94/48 97 Mechanical Ventilator 35 01/12/17 06:59 86 18 98 Mechanical Ventilator 35 01/12/17 06:49 89 20 99 Mechanical Ventilator 35 01/12/17 06:49 35 01/12/17 06:41 80 18 35 01/12/17 05:19 83 18 35 01/12/17 04:12 76 01/12/17 04:00 35 01/12/17 04:00 100.0 95 22 136/68 98 Mechanical Ventilator 35 01/12/17 03:22 85 15 35 01/12/17 01:45 89 13 35 01/12/17 01:45 35 01/12/17 01:45 89 15 99 Mechanical Ventilator 15.0 35 01/12/17 01:33 91 20 100 Mechanical Ventilator 35 01/12/17 00:00 92 01/12/17 00:00 99.1 95 20 117/55 100 Mechanical Ventilator 35 01/11/17 23:20 93 10 35 Height (Feet): 5 Height (Inches): 2.00 Weight (Pounds): 105 General Appearance: WD/WN, no acute distress HEENT: normocephalic, atraumatic, anicteric, mucous membranes moist, PERRL, supple, no JVD, status post trach Respiratory/Chest: chest wall non-tender, no respiratory distress, no accessory muscle use, decreased breath sounds, crackles/rales Cardiovascular: normal peripheral pulses, normal rate, regular rhythm, no gallop/murmur, no JVD Abdomen: normal bowel sounds, soft, non tender, no organomegaly, non distended , no mass, no scars Extremities: no cyanosis, no clubbing Skin: no rash, no lesions, no ulcers Neurologic/Psychiatric: alert Microbiology Date/Time Source Procedure Growth Status 01/10/17 10:15 Blood Blood Culture - Preliminary NO GROWTH AFTER 24 HOURS Resulted 01/10/17 10:00 Blood Blood Culture - Preliminary NO GROWTH AFTER 24 HOURS Resulted 01/10/17 16:40 Sputum Expectorated Gram Stain - Final Resulted 01/10/17 16:40 Sputum Expectorated Sputum Culture Pending Resulted 01/10/17 09:30 Nasal Nares MRSA Culture - Final NO METHICILLIN RESISTANT STAPH AUREUS... Complete 01/10/17 16:40 Indwelling Cath Urine Culture - Preliminary NO GROWTH AFTER 24 HOURS Resulted 01/10/17 09:30 Rectal Mucosa VRE Culture - Final NO VANCOMYCIN RESISTANT ENTEROCOCCUS ... Complete Laboratory Tests Test 01/12/17 03:15 White Blood Count 20.7 K/UL (4.8-10.8) H Red Blood Count 2.23 M/UL (4.20-5.40) L Hemoglobin 7.2 G/DL (12.0-16.0) L Hematocrit 21.8 % (37.0-47.0) L Mean Corpuscular Volume 98 FL (80-99) Mean Corpuscular Hemoglobin 32.4 PG (27.0-31.0) H Mean Corpuscular Hemoglobin Concent 33.2 G/DL (32.0-36.0) Red Cell Distribution Width 13.9 % (11.6-14.8) Platelet Count 392 K/UL (150-450) Mean Platelet Volume 7.9 FL (6.5-10.1) Neutrophils (%) (Auto) % (45.0-75.0) Lymphocytes (%) (Auto) % (20.0-45.0) Monocytes (%) (Auto) % (1.0-10.0) Eosinophils (%) (Auto) % (0.0-3.0) Basophils (%) (Auto) % (0.0-2.0) Differential Total Cells Counted 100 Neutrophils % (Manual) 76 % (45-75) H Lymphocytes % (Manual) 5 % (20-45) L Monocytes % (Manual) 7 % (1-10) Eosinophils % (Manual) 0 % (0-3) Basophils % (Manual) 1 % (0-2) Band Neutrophils 11 % (0-8) H Platelet Estimate Adequate Platelet Morphology Normal Hypochromasia 1+ Sodium Level 141 MMOL/L (136-145) Potassium Level 3.4 MMOL/L (3.5-5.1) L Chloride Level 108 MMOL/L (98-107) H Carbon Dioxide Level 24 MMOL/L (21-32) Anion Gap 9 mmol/L (5-15) Blood Urea Nitrogen 23 mg/dL (7-18) H Creatinine 1.0 MG/DL (0.55-1.30) Estimat Glomerular Filtration Rate mL/min (>60) Glucose Level 91 MG/DL (74-106) Calcium Level 7.7 MG/DL (8.5-10.1) L Iron Level 186 ug/dL (50-175) H Total Iron Binding Capacity 171 ug/dL (250-450) L Percent Iron Saturation 109 % (15-50) H Unsaturated Iron Binding -15 ug/dL (112-346) L Total Bilirubin 0.2 MG/DL (0.2-1.0) Aspartate Amino Transf (AST/SGOT) 15 U/L (15-37) Alanine Aminotransferase (ALT/SGPT) 10 U/L (12-78) L Alkaline Phosphatase 93 U/L (46-116) Total Protein 5.0 G/DL (6.4-8.2) L Albumin 1.3 G/DL (3.4-5.0) L Globulin 3.7 g/dL Albumin/Globulin Ratio 0.4 (1.0-2.7) L Amylase Level 24 U/L (25-115) L Lipase 61 U/L (73-393) L Current Medications Medications (Trade) Dose Ordered Sig/Sky Route PRN Reason Start Time Stop Time Status Last Admin Dose Admin Acetaminophen (Tylenol) 650 mg Q6H PRN ORAL Mild Pain/Temp > 100.5 01/10/17 18:00 02/09/17 17:59 01/12/17 09:04 Acetylcysteine (Mucomyst) 400 mg Q8HRT IN-LINE 01/12/17 23:00 02/09/17 21:59 Albuterol/ Ipratropium (Albuterol/ Ipratropium) 3 ml Q6HRT HHN 01/11/17 13:00 01/16/17 12:59 01/12/17 19:49 Amlodipine Besylate (Norvasc) 2.5 mg DAILY GT 01/11/17 09:00 02/10/17 08:59 01/11/17 09:12 Amphotericin B Liposome 250 mg/ Dextrose 275 ml @ 135 mls/hr Q24H IV 01/12/17 23:00 01/17/17 22:59 Ascorbic Acid (Vitamin C) 500 mg DAILY GT 01/11/17 09:00 02/10/17 08:59 01/12/17 09:05 Dextrose (Dextrose 50%) STAT PRN IV Hypoglycemia 01/10/17 14:45 02/09/17 14:44 Dextrose/Sodium Chloride 1,000 ml @ 75 mls/hr [id number] IV 01/11/17 21:45 02/10/17 21:44 01/12/17 11:50 Docusate Sodium (Colace) 250 mg DAILY NG 01/11/17 09:00 02/10/17 08:59 01/12/17 09:04 Memantine (Namenda) 10 mg DAILY GT 01/11/17 09:00 02/10/17 08:59 01/12/17 09:04 Meropenem 1 gm/ Sodium Chloride 110 ml @ 220 mls/hr Q12HR@0100,1300 IVPB 01/10/17 13:30 01/15/17 13:29 01/12/17 13:49 Ondansetron HCl (Zofran) 4 mg Q6H PRN IVP Nausea & Vomiting 01/10/17 14:45 02/09/17 14:44 Pantoprazole (Protonix) 40 mg EVERY 12 HOURS IVP 01/11/17 09:00 02/10/17 08:59 01/12/17 22:01 Risperidone (RisperDAL) 1 mg QHS GT 01/10/17 21:00 02/09/17 20:59 01/12/17 22:01 Valproic Acid (Depakene) 250 mg EVERY 12 HOURS NG 01/10/17 21:00 02/09/17 20:59 01/12/17 22:01 Vancomycin HCl (Vanco rx to dose) 1 ea DAILY PRN MISC Per rx protocol 01/10/17 12:15 02/09/17 12:14 Vancomycin/Sodium Chloride 250 ml @ 166.667 mls/hr Q24H IVPB 01/13/17 01:00 01/18/17 00:59 Shankar Qiu M.D. Jan 12, 2017 22:47
[2017-01-12] MEDS ORDERED: D5W IV SCH (23:00)
[2017-01-12] MEDS ORDERED: AMPHOTERICIN B LIPOSOME IV SCH (23:00)
[2017-01-13] VITALS: BP 120/95
[2017-01-13] MEDS: D5 1/2NS 1,000 ML IV SCH (00:39)
[2017-01-13] MEDS: Meropenem 1 GM in NS 110 ML IVPB SCH ×2 (00:56→12:24)
[2017-01-13] MEDS: Vancomycin 750mg/NS 250ml IVPB SCH (01:00)
[2017-01-13] MEDS: Albuterol/Ipratropium 3ml neb HHN SCH ×5 (01:46→22:44)
[2017-01-13 04:00] VITALS: BP 130/78
[2017-01-13 05:01] LABS: BASOPHILS % (AUTO) 1.2 % (0.0-2.0); EOSINOPHILS % (AUTO) 1.7 % (0.0-3.0); HEMATOCRIT 31.8 % (37.0-47.0); HEMOGLOBIN 10.6 G/DL (12.0-16.0); LYMPHOCYTES % (AUTO) 6.1 % (20.0-45.0); MEAN CORPUSCULAR VOLUME 96 FL (80-99); PLATELET COUNT 368 K/UL (150-450); RED CELL DISTRIBUTION WIDTH 13.1 % (11.6-14.8); WHITE BLOOD COUNT 11.9 K/UL (4.8-10.8)
[2017-01-13 05:55] LABS: ALANINE AMINOTRANSFERASE 10 U/L (12-78); ALBUMIN 1.5 G/DL (3.4-5.0); ALBUMIN/GLOBULIN RATIO 0.4 (1.0-2.7); ALKALINE PHOSPHATASE 104 U/L (46-116); ANION GAP 9 mmol/L (5-15); ASPARTATE AMINO TRANSFERASE 19 U/L (15-37); BILIRUBIN,TOTAL 0.3 MG/DL (0.2-1.0); BLOOD UREA NITROGEN 16 mg/dL (7-18); CALCIUM 8.1 MG/DL (8.5-10.1); CARBON DIOXIDE 26 MMOL/L (21-32); CHLORIDE 110 MMOL/L (98-107); CREATININE 0.9 MG/DL (0.55-1.30); POTASSIUM 3.4 MMOL/L (3.5-5.1); SODIUM 144 MMOL/L (136-145)
--- NOTE | 2017-01-13 06:53 | Anethesia Preoperative Eval ---
Anesthesia Pre-op PMH/ROS General Date of Evaluation: Jan 13, 2017 Anesthesiologist: Katarina ASA Score: ASA 4 Mallampati Score Class I : Soft palate, uvula, fauces, pillars visible Class II: Soft palate, uvula, fauces visible Class III: Soft palate, base of uvula visible Class IV: Only hard plate visible Mallampati Classification: Class II Surgeon: Mt Anesthesia History: none Family History: no anesthesia problems Allergies: Coded Allergies: CODEINE (Unverified Allergy, Unknown, 01/10/17) PENICILLINS (Unverified Allergy, Unknown, 01/10/17) Medications: see eMAR Past Medical History Cardiovascular: Reports: arrhythmia - Pacemaker Pulmonary: Reports: asthma, COPD Gastrointestinal/Genitourinary: Reports: other - G Tube Endocrine: Reports: DM Hematology/Immune: Reports: other - Mental Retardation PSxH Narrative: G Tube Anesthesia Pre-op Phys. Exam Physician Exam Last Vital Signs Date Time Temp Pulse Resp B/P (MAP) Pulse Ox O2 Delivery O2 Flow Rate FiO2 01/13/17 04:00 35 01/13/17 04:00 98.1 97 18 130/78 99 Mechanical Ventilator 01/12/17 01:45 15.0 Constitutional: NAD Neurologic: CN 2-12 intact Cardiovascular: RRR Respiratory: CTA Gastrointestinal: S/NT/ND Airway Exam Mallampati Score: Class II MO: limited ROM: limited Teeth: missing, intact Anesthesia Pre-op A/P Labs Hematology Test 01/13/17 03:45 White Blood Count 11.9 K/UL (4.8-10.8) H Red Blood Count 3.30 M/UL (4.20-5.40) L Hemoglobin 10.6 G/DL (12.0-16.0) #L Hematocrit 31.8 % (37.0-47.0) #L Mean Corpuscular Volume 96 FL (80-99) Mean Corpuscular Hemoglobin 32.1 PG (27.0-31.0) H Mean Corpuscular Hemoglobin Concent 33.3 G/DL (32.0-36.0) Red Cell Distribution Width 13.1 % (11.6-14.8) Platelet Count 368 K/UL (150-450) Mean Platelet Volume 7.9 FL (6.5-10.1) Neutrophils (%) (Auto) 81.0 % (45.0-75.0) H Lymphocytes (%) (Auto) 6.1 % (20.0-45.0) L Monocytes (%) (Auto) 10.0 % (1.0-10.0) Eosinophils (%) (Auto) 1.7 % (0.0-3.0) Basophils (%) (Auto) 1.2 % (0.0-2.0) Coagulation Test 01/13/17 03:45 Prothrombin Time 10.7 SEC (9.30-11.50) Prothromb Time International Ratio 1.0 (0.9-1.1) Activated Partial Thromboplast Time 26 SEC (23-33) Chemistry Test 01/13/17 03:45 Sodium Level 144 MMOL/L (136-145) Potassium Level 3.4 MMOL/L (3.5-5.1) L Chloride Level 110 MMOL/L (98-107) H Carbon Dioxide Level 26 MMOL/L (21-32) Anion Gap 9 mmol/L (5-15) Blood Urea Nitrogen 16 mg/dL (7-18) Creatinine 0.9 MG/DL (0.55-1.30) Estimat Glomerular Filtration Rate mL/min (>60) Glucose Level 91 MG/DL (74-106) Calcium Level 8.1 MG/DL (8.5-10.1) L Total Bilirubin 0.3 MG/DL (0.2-1.0) Aspartate Amino Transf (AST/SGOT) 19 U/L (15-37) Alanine Aminotransferase (ALT/SGPT) 10 U/L (12-78) L Alkaline Phosphatase 104 U/L (46-116) Total Protein 5.3 G/DL (6.4-8.2) L Albumin 1.5 G/DL (3.4-5.0) L Globulin 3.8 g/dL Albumin/Globulin Ratio 0.4 (1.0-2.7) L Risk Assessment & Plan Assessment: ASA 4 Plan: GA Status Change Before Surgery: Sammy Lepe MD Jan 13, 2017 06:53
--- NOTE | 2017-01-13 06:54 | Immediate Post-Op Evaluation ---
Immediate Post-Op Evalulation Immediate Post-Op Evalulation Procedure: EGD Date of Evaluation: Jan 13, 2017 Time of Evaluation: 07:42 IV Fluids: 100 LR Blood Products: 0 Estimated Blood Loss: 2 Urinary Output: 0 Blood Pressure Systolic: 109 Blood Pressure Diastolic: 56 Pulse Rate: 65 Respiratory Rate: 10 - Mech Vent O2 Sat by Pulse Oximetry: 100 Temperature (Fahrenheit): 98.4 Pain Score (1-10): 1 Nausea: No Vomiting: No Complications 0 Patient Status: awake, reacts, patent, none Hydration Status: adequate Sammy Bray MD Jan 13, 2017 06:54
--- NOTE | 2017-01-13 06:56 | 48 Hour Post Anesthesia Eval ---
Post Anesthesia Evaluation Procedure: EGD Date of Evaluation: Jan 13, 2017 Time of Evaluation: 09:53 Blood Pressure Systolic: 127 0: 72 Pulse Rate: 67 Respiratory Rate: 10 - Mech Vent Temperature (Fahrenheit): 98.4 O2 Sat by Pulse Oximetry: 98 Airway: patent Nausea: No Vomiting: No Sammy Bray MD Jan 13, 2017 06:56
[2017-01-13] MEDS ORDERED: NS 500ML IV ONE (07:00)
[2017-01-13] MEDS ORDERED: Lidocaine 1% MPF 10mg/ml 5ml ONE (07:00)
[2017-01-13] MEDS ORDERED: Propofol 200mg/20ml IV ONE (07:00)
[2017-01-13] MEDS ORDERED: LR 1000ml ONE (07:00)
--- NOTE | 2017-01-13 07:10 | Pre-Procedure Note/Attestation ---
Pre-Procedure Note/Attestation Complete Prior to Procedure Planned Procedure: not applicable Procedure Narrative: egd Indications for Procedure Pre-Operative Diagnosis: gib Attestation I attest that I discussed the nature of the procedure; its benefits; risks and complications; and alternatives (and the risks and benefits of such alternatives ), prior to the procedure, with the patient (or the patient's legal admissions representative). I attest that, if there was a reasonable possibility of needing a blood transfusion, the patient (or the patient's legal admissions representative) was given the [facility] standardized written summary, pursuant to the [place] Blood Safety Act ([place] Health and Safety Code # 1645, as amended). I attest that I re-evaluated the patient just prior to the surgery and that there has been no change in the patient's H&P, except as documented below: MICHELLE COE Jan 13, 2017 07:10
--- NOTE | 2017-01-13 07:10 | Pre-Procedure Note/Attestation ---
Pre-Procedure Note/Attestation Complete Prior to Procedure Planned Procedure: not applicable Procedure Narrative: egd Indications for Procedure Pre-Operative Diagnosis: gib Attestation I attest that I discussed the nature of the procedure; its benefits; risks and complications; and alternatives (and the risks and benefits of such alternatives ), prior to the procedure, with the patient (or the patient's legal group sales representative). I attest that, if there was a reasonable possibility of needing a blood transfusion, the patient (or the patient's legal group sales representative) was given the [facility] standardized written summary, pursuant to the [place] Blood Safety Act ([place] Health and Safety Code # 1645, as amended). I attest that I re-evaluated the patient just prior to the surgery and that there has been no change in the patient's H&P, except as documented below: MICHELLE COE Jan 13, 2017 07:10
--- NOTE | 2017-01-13 07:10 | Pre-Procedure Note/Attestation ---
Pre-Procedure Note/Attestation Complete Prior to Procedure Planned Procedure: not applicable Procedure Narrative: egd Indications for Procedure Pre-Operative Diagnosis: gib Attestation I attest that I discussed the nature of the procedure; its benefits; risks and complications; and alternatives (and the risks and benefits of such alternatives ), prior to the procedure, with the patient (or the patient's legal contracts representative). I attest that, if there was a reasonable possibility of needing a blood transfusion, the patient (or the patient's legal contracts representative) was given the [facility] standardized written summary, pursuant to the [place] Blood Safety Act ([place] Health and Safety Code # 1645, as amended). I attest that I re-evaluated the patient just prior to the surgery and that there has been no change in the patient's H&P, except as documented below: MICHELLE COE Jan 13, 2017 07:10
--- NOTE | 2017-01-13 07:16 | Endoscopy Procedure Note ---
Endoscopy Procedure Note Indication for Procedure: gib Procedures Performed: EGD Operative Findings/Diagnosis: esophagitis Specimen: yes Pt Tolerated Procedure Well: Yes Estimated Blood Loss: none Anesthesiologist: maira Anesthesia: MAC Implant(s) used?: No 50 yrs or older w/o bx or poly: Not Applicable 10yrs. F/U not recommended: Not Applicable MICHELLE COE Jan 13, 2017 07:16
[2017-01-13 08:00] VITALS: BP 110/53
[2017-01-13] MEDS ORDERED: KCl 10% 40mEq/30ml liquid NG ONE (08:00)
[2017-01-13] MEDS: Memantine 10mg tab GT SCH (08:36)
[2017-01-13] MEDS: Valproic Acid 250mg/5ml Liquid NG SCH ×2 (08:36→20:35)
[2017-01-13] MEDS: Ascorbic Acid 500mg tab GT SCH (08:36)
[2017-01-13] MEDS: Docusate 100mg/10ml Liq NG SCH (08:37)
[2017-01-13] MEDS: Pantoprazole Inj IVP SCH ×2 (08:37→20:35)
--- NOTE | 2017-01-13 11:51 | Pulmonology Progress Note ---
Assessment/Plan Assessment/Plan 1. Ventilator-dependent respiratory failure. 2. Chronic pneumonia, possible underlying congestive heart failure. 3. Urinary tract infection. 4. Sepsis. 5. Hypertension. 6. Diabetes. temps lower, WBC down anemia better cont vent support abx per ID Subjective ROS Limited/Unobtainable: Yes Constitutional: Denies: fever Allergies: Coded Allergies: CODEINE (Unverified Allergy, Unknown, 01/10/17) PENICILLINS (Unverified Allergy, Unknown, 01/10/17) Objective Last 24 Hour Vital Signs Date Time Temp Pulse Resp B/P (MAP) Pulse Ox O2 Delivery O2 Flow Rate FiO2 01/13/17 10:32 68 14 35 01/13/17 08:58 70 25 35 01/13/17 08:36 78 110/53 01/13/17 08:00 98.1 78 18 110/53 99 Mechanical Ventilator 35 01/13/17 08:00 35 01/13/17 07:49 67 10 100 Mechanical Ventilator 35 01/13/17 07:38 62 10 100 Mechanical Ventilator 35 01/13/17 07:38 35 01/13/17 07:37 60 10 100 Mechanical Ventilator 35 01/13/17 07:30 60 10 100 Mechanical Ventilator 35 01/13/17 07:29 60 10 35 01/13/17 07:25 67 10 98 01/13/17 07:24 65 10 100 01/13/17 07:21 66 01/13/17 04:00 35 01/13/17 04:00 98.1 97 18 130/78 99 Mechanical Ventilator 35 01/13/17 04:00 87 01/13/17 03:38 79 11 35 01/13/17 01:58 88 20 100 Mechanical Ventilator 35 01/13/17 01:48 88 11 100 Mechanical Ventilator 35 01/13/17 01:47 81 11 35 01/13/17 00:00 97.9 90 18 120/95 98 Mechanical Ventilator 35 01/13/17 00:00 92 01/12/17 23:44 82 10 100 Mechanical Ventilator 35 01/12/17 23:33 35 01/12/17 23:33 82 10 98 Mechanical Ventilator 35 01/12/17 23:32 35 01/12/17 23:32 78 12 35 01/12/17 22:58 97.9 81 18 133/67 98 Mechanical Ventilator 35 01/12/17 21:30 75 11 35 01/12/17 20:18 97.8 80 18 107/49 98 Mechanical Ventilator 35 01/12/17 20:00 76 01/12/17 20:00 35 01/12/17 19:56 82 19 100 Mechanical Ventilator 01/12/17 19:41 78 11 100 Mechanical Ventilator 35 01/12/17 19:40 78 11 35 01/12/17 19:29 98.1 80 18 107/56 99 Mechanical Ventilator 35 01/12/17 17:28 86 22 35 01/12/17 17:07 98.1 89 18 146/73 99 Mechanical Ventilator 35 01/12/17 16:26 98.4 89 14 131/54 99 Mechanical Ventilator 35 01/12/17 16:00 35 01/12/17 16:00 88 01/12/17 15:20 81 15 35 01/12/17 15:08 Mechanical Ventilator 01/12/17 13:04 87 10 100 Mechanical Ventilator 35 01/12/17 13:02 83 10 35 01/12/17 12:50 93 10 99 Mechanical Ventilator 35 01/12/17 12:50 35 01/12/17 12:00 97.7 93 20 112/52 99 Mechanical Ventilator 35 01/12/17 12:00 78 01/12/17 12:00 35 Intake and Output 01/13/17 01/14/17 19:00 07:00 Intake Total 75 ml Balance 75 ml IV Total 75 ml Objective trach/vent G tube General Appearance: no acute distress HEENT: atraumatic Respiratory/Chest: decreased breath sounds Cardiovascular: normal rate Abdomen: soft, non tender Microbiology Date/Time Source Procedure Growth Status 01/12/17 14:00 Sputum Induced Gram Stain - Final Resulted 01/12/17 14:00 Sputum Induced Sputum Culture Pending Resulted 01/10/17 16:40 Sputum Expectorated Gram Stain - Final Resulted 01/10/17 16:40 Sputum Expectorated Sputum Culture Pending Resulted 01/10/17 16:40 Indwelling Cath Urine Culture - Final Mi Albicans Complete Laboratory Tests 01/13/17 03:45: White Blood Count 11.9H, Red Blood Count 3.30L, Hemoglobin 10.6#L, Hematocrit 31.8#L, Mean Corpuscular Volume 96, Mean Corpuscular Hemoglobin 32.1H, Mean Corpuscular Hemoglobin Concent 33.3, Red Cell Distribution Width 13.1, Platelet Count 368, Mean Platelet Volume 7.9, Neutrophils (%) (Auto) 81.0H, Lymphocytes ( %) (Auto) 6.1L, Monocytes (%) (Auto) 10.0, Eosinophils (%) (Auto) 1.7, Basophils (%) (Auto) 1.2, Prothrombin Time 10.7, Prothromb Time International Ratio 1.0, Activated Partial Thromboplast Time 26, Sodium Level 144, Potassium Level 3.4L, Chloride Level 110H, Carbon Dioxide Level 26, Anion Gap 9, Blood Urea Nitrogen 16, Creatinine 0.9, Estimat Glomerular Filtration Rate , Glucose Level 91, Calcium Level 8.1L, Total Bilirubin 0.3, Aspartate Amino Transf (AST/ SGOT) 19, Alanine Aminotransferase (ALT/SGPT) 10L, Alkaline Phosphatase 104, Total Protein 5.3L, Albumin 1.5L, Globulin 3.8, Albumin/Globulin Ratio 0.4L Current Medications Medications (Trade) Dose Ordered Sig/Sky Route PRN Reason Start Time Stop Time Status Last Admin Dose Admin Acetaminophen (Tylenol) 650 mg Q6H PRN ORAL Mild Pain/Temp > 100.5 01/10/17 18:00 02/09/17 17:59 01/12/17 09:04 Acetylcysteine (Mucomyst) 400 mg Q8HRT IN-LINE 01/12/17 23:00 02/09/17 21:59 01/13/17 07:36 Albuterol/ Ipratropium (Albuterol/ Ipratropium) 3 ml Q6HRT HHN 01/11/17 13:00 01/16/17 12:59 01/13/17 07:35 Amlodipine Besylate (Norvasc) 2.5 mg DAILY GT 01/11/17 09:00 02/10/17 08:59 01/13/17 08:36 Ascorbic Acid (Vitamin C) 500 mg DAILY GT 01/11/17 09:00 02/10/17 08:59 01/13/17 08:36 Dextrose (Dextrose 50%) STAT PRN IV Hypoglycemia 01/10/17 14:45 02/09/17 14:44 Docusate Sodium (Colace) 250 mg DAILY NG 01/11/17 09:00 02/10/17 08:59 01/12/17 09:04 Memantine (Namenda) 10 mg DAILY GT 01/11/17 09:00 02/10/17 08:59 01/13/17 08:36 Meropenem 1 gm/ Sodium Chloride 110 ml @ 220 mls/hr Q12HR@0100,1300 IVPB 01/10/17 13:30 01/15/17 13:29 01/13/17 00:56 Ondansetron HCl (Zofran) 4 mg Q6H PRN IVP Nausea & Vomiting 01/10/17 14:45 02/09/17 14:44 Pantoprazole (Protonix) 40 mg EVERY 12 HOURS IVP 01/11/17 09:00 02/10/17 08:59 01/13/17 08:37 Polyethylene Glycol (Miralax) 17 gm BEDTIME ORAL 01/13/17 21:00 02/12/17 20:59 Risperidone (RisperDAL) 1 mg QHS GT 01/10/17 21:00 02/09/17 20:59 01/12/17 22:01 Valproic Acid (Depakene) 250 mg EVERY 12 HOURS NG 01/10/17 21:00 02/09/17 20:59 01/13/17 08:36 Vancomycin HCl (Vanco rx to dose) 1 ea DAILY PRN MISC Per rx protocol 01/10/17 12:15 02/09/17 12:14 Vancomycin/Sodium Chloride 250 ml @ 166.667 mls/hr Q24H IVPB 01/13/17 01:00 01/18/17 00:59 01/13/17 01:00 MELANIE ENGLISH Jan 13, 2017 11:51
[2017-01-13 12:00] VITALS: BP 104/66
[2017-01-13] MEDS ORDERED: Tubing Blood Filter IV ONE (13:45)
[2017-01-13] MEDS ORDERED: D5 1/2NS 1000ml IV ONE (13:45)
[2017-01-13] MEDS ORDERED: Tubing IV Secondary IV ONE (13:45)
[2017-01-13] MEDS ORDERED: NS 275ml ONE (13:45)
--- NOTE | 2017-01-13 14:50 | Infectious Diseases Prog Note ---
Assessment/Plan Problems: (1) HCAP (healthcare-associated pneumonia) Assessment & Plan: with bilateral infiltrates, await sputum culture , continue meropenem , and vancomycin empirically for now (2) UTI (urinary tract infection) Assessment & Plan: with mi, less than 10 0000 colony, most likely colonization, recommend to change travis catheter , no need for antifungal (3) Sepsis Assessment & Plan: due to the above, on vancomycin and meropenem pending culture results (4) GI bleed Assessment & Plan: monitor H/H, transfuse as needed , GI is following (5) COPD exacerbation Assessment & Plan: continue nebulizer therapy, monitor CXR (6) Open nasal wound Assessment & Plan: not deep to the nasal cavity with no necrosis , no evidenc of fungal growth , and she had previously candiduria at [facility], culture here showed candda again, most likely colonizer (7) Sacral wound Assessment & Plan: continue local wound care and off loading , consult wound care Subjective ROS Limited/Unobtainable: Yes Allergies: Coded Allergies: CODEINE (Unverified Allergy, Unknown, 01/10/17) PENICILLINS (Unverified Allergy, Unknown, 01/10/17) Subjective she is lying in bed, comfortable, on mechanical ventilation with trach, afebrile , open eyes spontaneously , no GI bleeding Objective Vital Signs Last 24 Hour Vital Signs Date Time Temp Pulse Resp B/P (MAP) Pulse Ox O2 Delivery O2 Flow Rate FiO2 01/13/17 13:26 75 10 100 Mechanical Ventilator 35 01/13/17 13:14 73 14 35 01/13/17 13:10 73 14 100 Mechanical Ventilator 35 01/13/17 12:00 35 01/13/17 12:00 97.0 70 18 104/66 99 Mechanical Ventilator 35 01/13/17 12:00 66 01/13/17 10:32 68 14 35 01/13/17 08:58 70 25 35 01/13/17 08:36 78 110/53 01/13/17 08:00 98.1 78 18 110/53 99 Mechanical Ventilator 35 01/13/17 08:00 35 01/13/17 07:49 67 10 100 Mechanical Ventilator 35 01/13/17 07:38 62 10 100 Mechanical Ventilator 35 01/13/17 07:38 35 01/13/17 07:37 60 10 100 Mechanical Ventilator 35 01/13/17 07:30 60 10 100 Mechanical Ventilator 35 01/13/17 07:29 60 10 35 01/13/17 07:25 67 10 98 01/13/17 07:24 65 10 100 01/13/17 07:21 66 01/13/17 04:00 35 01/13/17 04:00 98.1 97 18 130/78 99 Mechanical Ventilator 35 01/13/17 04:00 87 01/13/17 03:38 79 11 35 01/13/17 01:58 88 20 100 Mechanical Ventilator 35 01/13/17 01:48 88 11 100 Mechanical Ventilator 35 01/13/17 01:47 81 11 35 01/13/17 00:00 97.9 90 18 120/95 98 Mechanical Ventilator 35 01/13/17 00:00 92 01/12/17 23:44 82 10 100 Mechanical Ventilator 35 01/12/17 23:33 35 01/12/17 23:33 82 10 98 Mechanical Ventilator 35 01/12/17 23:32 35 01/12/17 23:32 78 12 35 01/12/17 22:58 97.9 81 18 133/67 98 Mechanical Ventilator 35 01/12/17 21:30 75 11 35 01/12/17 20:18 97.8 80 18 107/49 98 Mechanical Ventilator 35 01/12/17 20:00 76 01/12/17 20:00 35 01/12/17 19:56 82 19 100 Mechanical Ventilator 01/12/17 19:41 78 11 100 Mechanical Ventilator 35 01/12/17 19:40 78 11 35 01/12/17 19:29 98.1 80 18 107/56 99 Mechanical Ventilator 35 01/12/17 17:28 86 22 35 01/12/17 17:07 98.1 89 18 146/73 99 Mechanical Ventilator 35 01/12/17 16:26 98.4 89 14 131/54 99 Mechanical Ventilator 35 01/12/17 16:00 35 01/12/17 16:00 88 01/12/17 15:20 81 15 35 01/12/17 15:08 Mechanical Ventilator Height (Feet): 5 Height (Inches): 2.00 Weight (Pounds): 105 General Appearance: WD/WN, no acute distress HEENT: normocephalic, atraumatic, anicteric, mucous membranes moist, PERRL, supple, status post trach, other - nasal wound Respiratory/Chest: chest wall non-tender, no respiratory distress, no accessory muscle use, decreased breath sounds, crackles/rales Cardiovascular: normal peripheral pulses, normal rate, regular rhythm, no gallop/murmur, no JVD Abdomen: normal bowel sounds, soft, non tender, no organomegaly, non distended , no mass, no scars Genitourinary: normal external genitalia Extremities: no cyanosis, no clubbing Skin: no rash, no lesions, no ulcers Neurologic/Psychiatric: alert Microbiology Date/Time Source Procedure Growth Status 01/12/17 14:00 Sputum Induced Gram Stain - Final Resulted 01/12/17 14:00 Sputum Induced Sputum Culture Pending Resulted 01/10/17 16:40 Sputum Expectorated Gram Stain - Final Resulted 01/10/17 16:40 Sputum Expectorated Sputum Culture Pending Resulted 01/10/17 16:40 Indwelling Cath Urine Culture - Final Mi Albicans Complete Laboratory Tests Test 01/13/17 03:45 White Blood Count 11.9 K/UL (4.8-10.8) H Red Blood Count 3.30 M/UL (4.20-5.40) L Hemoglobin 10.6 G/DL (12.0-16.0) #L Hematocrit 31.8 % (37.0-47.0) #L Mean Corpuscular Volume 96 FL (80-99) Mean Corpuscular Hemoglobin 32.1 PG (27.0-31.0) H Mean Corpuscular Hemoglobin Concent 33.3 G/DL (32.0-36.0) Red Cell Distribution Width 13.1 % (11.6-14.8) Platelet Count 368 K/UL (150-450) Mean Platelet Volume 7.9 FL (6.5-10.1) Neutrophils (%) (Auto) 81.0 % (45.0-75.0) H Lymphocytes (%) (Auto) 6.1 % (20.0-45.0) L Monocytes (%) (Auto) 10.0 % (1.0-10.0) Eosinophils (%) (Auto) 1.7 % (0.0-3.0) Basophils (%) (Auto) 1.2 % (0.0-2.0) Prothrombin Time 10.7 SEC (9.30-11.50) Prothromb Time International Ratio 1.0 (0.9-1.1) Activated Partial Thromboplast Time 26 SEC (23-33) Sodium Level 144 MMOL/L (136-145) Potassium Level 3.4 MMOL/L (3.5-5.1) L Chloride Level 110 MMOL/L (98-107) H Carbon Dioxide Level 26 MMOL/L (21-32) Anion Gap 9 mmol/L (5-15) Blood Urea Nitrogen 16 mg/dL (7-18) Creatinine 0.9 MG/DL (0.55-1.30) Estimat Glomerular Filtration Rate mL/min (>60) Glucose Level 91 MG/DL (74-106) Calcium Level 8.1 MG/DL (8.5-10.1) L Total Bilirubin 0.3 MG/DL (0.2-1.0) Aspartate Amino Transf (AST/SGOT) 19 U/L (15-37) Alanine Aminotransferase (ALT/SGPT) 10 U/L (12-78) L Alkaline Phosphatase 104 U/L (46-116) Total Protein 5.3 G/DL (6.4-8.2) L Albumin 1.5 G/DL (3.4-5.0) L Globulin 3.8 g/dL Albumin/Globulin Ratio 0.4 (1.0-2.7) L Current Medications Medications (Trade) Dose Ordered Sig/Sky Route PRN Reason Start Time Stop Time Status Last Admin Dose Admin Acetaminophen (Tylenol) 650 mg Q6H PRN ORAL Mild Pain/Temp > 100.5 01/10/17 18:00 02/09/17 17:59 01/12/17 09:04 Acetylcysteine (Mucomyst) 400 mg Q8HRT IN-LINE 01/12/17 23:00 02/09/17 21:59 01/13/17 13:11 Albuterol/ Ipratropium (Albuterol/ Ipratropium) 3 ml Q6HRT HHN 01/11/17 13:00 01/16/17 12:59 01/13/17 13:11 Amlodipine Besylate (Norvasc) 2.5 mg DAILY GT 01/11/17 09:00 02/10/17 08:59 01/13/17 08:36 Ascorbic Acid (Vitamin C) 500 mg DAILY GT 01/11/17 09:00 02/10/17 08:59 01/13/17 08:36 Dextrose (Dextrose 50%) STAT PRN IV Hypoglycemia 01/10/17 14:45 02/09/17 14:44 Docusate Sodium (Colace) 250 mg DAILY NG 01/11/17 09:00 02/10/17 08:59 01/12/17 09:04 Memantine (Namenda) 10 mg DAILY GT 01/11/17 09:00 02/10/17 08:59 01/13/17 08:36 Meropenem 1 gm/ Sodium Chloride 110 ml @ 220 mls/hr Q12HR@0100,1300 IVPB 01/10/17 13:30 01/15/17 13:29 01/13/17 12:24 Ondansetron HCl (Zofran) 4 mg Q6H PRN IVP Nausea & Vomiting 01/10/17 14:45 02/09/17 14:44 Pantoprazole (Protonix) 40 mg EVERY 12 HOURS IVP 01/11/17 09:00 02/10/17 08:59 01/13/17 08:37 Polyethylene Glycol (Miralax) 17 gm BEDTIME ORAL 01/13/17 21:00 02/12/17 20:59 Risperidone (RisperDAL) 1 mg QHS GT 01/10/17 21:00 02/09/17 20:59 01/12/17 22:01 Valproic Acid (Depakene) 250 mg EVERY 12 HOURS NG 01/10/17 21:00 02/09/17 20:59 01/13/17 08:36 Vancomycin HCl (Vanco rx to dose) 1 ea DAILY PRN MISC Per rx protocol 01/10/17 12:15 02/09/17 12:14 Vancomycin/Sodium Chloride 250 ml @ 166.667 mls/hr Q24H IVPB 01/13/17 01:00 01/18/17 00:59 01/13/17 01:00 Shankar Qiu M.D. Jan 13, 2017 14:50
[2017-01-13 16:00] VITALS: BP 102/46
--- NOTE | 2017-01-13 16:00 | Procedure Note ---
DATE OF PROCEDURE: 01/13/2017 SURGEON: Jaya Amor M.D. PROCEDURE: Upper endoscopy with biopsy. ANESTHESIOLOGIST: Sammy Brya M.D. INSTRUMENT: Olympus adult flexible upper endoscope. INDICATION: GI bleeding. REASON FOR PROCEDURE: The procedure, risks, benefits, and possible consequences, including hemorrhage, aspiration, perforation and infection, and alternative treatments, were explained to the patient/legal guardian by Dr. Jaya Amor and the patient/legal guardian understood and accepted these risks. DESCRIPTION OF PROCEDURE: After informed consent was obtained and the patient was adequately sedated, Olympus upper endoscope was advanced from mouth into the second portion of the duodenum and retroflexion was performed in the stomach. The patient had evidence of minimum distal esophagitis in distal esophageal ring. In the stomach, there was diffuse gastritis. Random biopsy from body and antrum was obtained. A few small polyps also most probably fundic gland polyps which were not biopsied. At this time, the scope was retrieved. Biopsy from the gastric and esophagus was obtained. SUMMARY FINDINGS: 1. Minimum distal esophagitis. 2. Distal esophageal ring. 3. Gastritis. 4. Gastric polyps. RECOMMENDATIONS: Follow biopsy results and treat accordingly. Continue on PPI twice a day. Elevate the head of the bed at all times. G-tube flush. G-tube care. Start tube feeding today. Send the stool for OB. Monitor hemoglobin and hematocrit. Consider colonoscopy if needed. I want to thank, Dr. Fernandez Gomez, for this kind referral. Jaya Amor M.D. DR: [place] JOB#: [id number] CC: Fernandez Gomez M.D.; Fax#: [phone]
--- NOTE | 2017-01-13 17:17 | General Progress Note ---
Assessment/Plan Assessment/Plan # GI bleed anemia --> hx of hematemesis --> ferritin elevated --> s/p egd today, awaiting results # Anemia due to chronic disease --> hgb goal is >7 --> transfuse if hgb below 7 # HCAP (healthcare-associated pneumonia) - on antibiotics # UTI (urinary tract infection) # Sepsis # COPD exacerbation - on nebulizer prn Subjective ROS Limited/Unobtainable: Yes Allergies: Coded Allergies: CODEINE (Unverified Allergy, Unknown, 01/10/17) PENICILLINS (Unverified Allergy, Unknown, 01/10/17) Subjective HH better Objective Last 24 Hour Vital Signs Date Time Temp Pulse Resp B/P (MAP) Pulse Ox O2 Delivery O2 Flow Rate FiO2 01/13/17 16:34 72 16 35 01/13/17 16:00 98.2 83 18 102/46 99 Mechanical Ventilator 35 01/13/17 16:00 69 01/13/17 16:00 35 01/13/17 15:08 Mechanical Ventilator 01/13/17 15:08 Mechanical Ventilator 01/13/17 15:06 76 22 35 01/13/17 13:26 75 10 100 Mechanical Ventilator 35 01/13/17 13:14 73 14 35 01/13/17 13:10 73 14 100 Mechanical Ventilator 35 01/13/17 12:00 35 01/13/17 12:00 97.0 70 18 104/66 99 Mechanical Ventilator 35 01/13/17 12:00 66 01/13/17 10:32 68 14 35 01/13/17 08:58 70 25 35 01/13/17 08:36 78 110/53 01/13/17 08:00 98.1 78 18 110/53 99 Mechanical Ventilator 35 01/13/17 08:00 35 01/13/17 07:49 67 10 100 Mechanical Ventilator 35 01/13/17 07:38 62 10 100 Mechanical Ventilator 35 01/13/17 07:38 35 01/13/17 07:37 60 10 100 Mechanical Ventilator 35 01/13/17 07:30 60 10 100 Mechanical Ventilator 35 01/13/17 07:29 60 10 35 01/13/17 07:25 67 10 98 01/13/17 07:24 65 10 100 01/13/17 07:21 66 01/13/17 04:00 35 01/13/17 04:00 98.1 97 18 130/78 99 Mechanical Ventilator 35 01/13/17 04:00 87 01/13/17 03:38 79 11 35 01/13/17 01:58 88 20 100 Mechanical Ventilator 35 01/13/17 01:48 88 11 100 Mechanical Ventilator 35 01/13/17 01:47 81 11 35 01/13/17 00:00 97.9 90 18 120/95 98 Mechanical Ventilator 35 01/13/17 00:00 92 01/12/17 23:44 82 10 100 Mechanical Ventilator 35 01/12/17 23:33 35 01/12/17 23:33 82 10 98 Mechanical Ventilator 35 01/12/17 23:32 35 01/12/17 23:32 78 12 35 01/12/17 22:58 97.9 81 18 133/67 98 Mechanical Ventilator 35 01/12/17 21:30 75 11 35 01/12/17 20:18 97.8 80 18 107/49 98 Mechanical Ventilator 35 01/12/17 20:00 76 01/12/17 20:00 35 01/12/17 19:56 82 19 100 Mechanical Ventilator 01/12/17 19:41 78 11 100 Mechanical Ventilator 35 01/12/17 19:40 78 11 35 01/12/17 19:29 98.1 80 18 107/56 99 Mechanical Ventilator 35 01/12/17 17:28 86 22 35 Intake and Output 01/13/17 01/14/17 19:00 07:00 Intake Total 370 ml Balance 370 ml Free Water 100 ml IV Total 185 ml Tube Feeding 85 ml # Voids 1 Laboratory Tests 01/13/17 03:45: White Blood Count 11.9H, Red Blood Count 3.30L, Hemoglobin 10.6#L, Hematocrit 31.8#L, Mean Corpuscular Volume 96, Mean Corpuscular Hemoglobin 32.1H, Mean Corpuscular Hemoglobin Concent 33.3, Red Cell Distribution Width 13.1, Platelet Count 368, Mean Platelet Volume 7.9, Neutrophils (%) (Auto) 81.0H, Lymphocytes ( %) (Auto) 6.1L, Monocytes (%) (Auto) 10.0, Eosinophils (%) (Auto) 1.7, Basophils (%) (Auto) 1.2, Prothrombin Time 10.7, Prothromb Time International Ratio 1.0, Activated Partial Thromboplast Time 26, Sodium Level 144, Potassium Level 3.4L, Chloride Level 110H, Carbon Dioxide Level 26, Anion Gap 9, Blood Urea Nitrogen 16, Creatinine 0.9, Estimat Glomerular Filtration Rate , Glucose Level 91, Calcium Level 8.1L, Total Bilirubin 0.3, Aspartate Amino Transf (AST/ SGOT) 19, Alanine Aminotransferase (ALT/SGPT) 10L, Alkaline Phosphatase 104, Total Protein 5.3L, Albumin 1.5L, Globulin 3.8, Albumin/Globulin Ratio 0.4L Height (Feet): 5 Height (Inches): 2.00 Weight (Pounds): 105 General Appearance: no apparent distress EENT: normal ENT inspection Neck: normal alignment Respiratory/Chest: chest wall non-tender Extremities: non-tender Reinier Lou Jan 13, 2017 17:17
[2017-01-13 20:00] VITALS: BP 96/60
[2017-01-13] MEDS: Miralax 17gm pkt ORAL SCH (20:35)
--- NOTE | 2017-01-13 21:27 | General Progress Note ---
Assessment/Plan Problem List: (1) GI bleed ICD Codes: K92.2 - Gastrointestinal hemorrhage, unspecified SNOMED: 11548338 (2) Sepsis ICD Codes: A41.9 - Sepsis, unspecified organism SNOMED: 93626685 (3) HCAP (healthcare-associated pneumonia) ICD Codes: J18.9 - Pneumonia, unspecified organism SNOMED: 398186173 (4) UTI (urinary tract infection) ICD Codes: N39.0 - Urinary tract infection, site not specified SNOMED: 42031762 Status: progressing Assessment/Plan sepsis no vomit abx per id afebrile trach and peg Subjective ROS Limited/Unobtainable: Yes Allergies: Coded Allergies: CODEINE (Unverified Allergy, Unknown, 01/10/17) PENICILLINS (Unverified Allergy, Unknown, 01/10/17) Objective Last 24 Hour Vital Signs Date Time Temp Pulse Resp B/P (MAP) Pulse Ox O2 Delivery O2 Flow Rate FiO2 01/13/17 20:00 98.1 79 17 96/60 99 Mechanical Ventilator 35 01/13/17 20:00 78 01/13/17 20:00 35 01/13/17 19:44 88 11 99 Mechanical Ventilator 35 01/13/17 19:36 89 13 100 Mechanical Ventilator 35 01/13/17 19:20 90 17 35 01/13/17 16:34 72 16 35 01/13/17 16:00 98.2 83 18 102/46 99 Mechanical Ventilator 35 01/13/17 16:00 69 01/13/17 16:00 35 01/13/17 15:08 Mechanical Ventilator 01/13/17 15:08 Mechanical Ventilator 01/13/17 15:06 76 22 35 01/13/17 13:26 75 10 100 Mechanical Ventilator 35 01/13/17 13:14 73 14 35 01/13/17 13:10 73 14 100 Mechanical Ventilator 35 01/13/17 12:00 35 01/13/17 12:00 97.0 70 18 104/66 99 Mechanical Ventilator 35 01/13/17 12:00 66 01/13/17 10:32 68 14 35 01/13/17 08:58 70 25 35 01/13/17 08:36 78 110/53 01/13/17 08:00 98.1 78 18 110/53 99 Mechanical Ventilator 35 01/13/17 08:00 35 01/13/17 07:49 67 10 100 Mechanical Ventilator 35 01/13/17 07:38 62 10 100 Mechanical Ventilator 35 01/13/17 07:38 35 01/13/17 07:37 60 10 100 Mechanical Ventilator 35 01/13/17 07:30 60 10 100 Mechanical Ventilator 35 01/13/17 07:29 60 10 35 01/13/17 07:25 67 10 98 01/13/17 07:24 65 10 100 01/13/17 07:21 66 01/13/17 04:00 35 01/13/17 04:00 98.1 97 18 130/78 99 Mechanical Ventilator 35 01/13/17 04:00 87 01/13/17 03:38 79 11 35 01/13/17 01:58 88 20 100 Mechanical Ventilator 35 01/13/17 01:48 88 11 100 Mechanical Ventilator 35 01/13/17 01:47 81 11 35 01/13/17 00:00 97.9 90 18 120/95 98 Mechanical Ventilator 35 01/13/17 00:00 92 01/12/17 23:44 82 10 100 Mechanical Ventilator 35 01/12/17 23:33 35 01/12/17 23:33 82 10 98 Mechanical Ventilator 35 01/12/17 23:32 35 01/12/17 23:32 78 12 35 01/12/17 22:58 97.9 81 18 133/67 98 Mechanical Ventilator 35 01/12/17 21:30 75 11 35 Intake and Output 01/13/17 01/14/17 19:00 07:00 Intake Total 555 ml 50 ml Balance 555 ml 50 ml Free Water 100 ml IV Total 185 ml Tube Feeding 270 ml 50 ml # Voids 1 1 # Bowel Movements 1 Laboratory Tests 01/13/17 03:45: White Blood Count 11.9H, Red Blood Count 3.30L, Hemoglobin 10.6#L, Hematocrit 31.8#L, Mean Corpuscular Volume 96, Mean Corpuscular Hemoglobin 32.1H, Mean Corpuscular Hemoglobin Concent 33.3, Red Cell Distribution Width 13.1, Platelet Count 368, Mean Platelet Volume 7.9, Neutrophils (%) (Auto) 81.0H, Lymphocytes ( %) (Auto) 6.1L, Monocytes (%) (Auto) 10.0, Eosinophils (%) (Auto) 1.7, Basophils (%) (Auto) 1.2, Prothrombin Time 10.7, Prothromb Time International Ratio 1.0, Activated Partial Thromboplast Time 26, Sodium Level 144, Potassium Level 3.4L, Chloride Level 110H, Carbon Dioxide Level 26, Anion Gap 9, Blood Urea Nitrogen 16, Creatinine 0.9, Estimat Glomerular Filtration Rate , Glucose Level 91, Calcium Level 8.1L, Total Bilirubin 0.3, Aspartate Amino Transf (AST/ SGOT) 19, Alanine Aminotransferase (ALT/SGPT) 10L, Alkaline Phosphatase 104, Total Protein 5.3L, Albumin 1.5L, Globulin 3.8, Albumin/Globulin Ratio 0.4L Height (Feet): 5 Height (Inches): 2.00 Weight (Pounds): 105 General Appearance: confused Cardiovascular: normal rate Respiratory/Chest: lungs clear Abdomen: soft Fernandez Gomez MD Jan 13, 2017 21:27
--- NOTE | 2017-01-13 21:27 | General Progress Note ---
Assessment/Plan Problem List: (1) GI bleed ICD Codes: K92.2 - Gastrointestinal hemorrhage, unspecified SNOMED: 66913144 (2) Sepsis ICD Codes: A41.9 - Sepsis, unspecified organism SNOMED: 19205379 (3) HCAP (healthcare-associated pneumonia) ICD Codes: J18.9 - Pneumonia, unspecified organism SNOMED: 296889689 (4) UTI (urinary tract infection) ICD Codes: N39.0 - Urinary tract infection, site not specified SNOMED: 54192425 Status: progressing Assessment/Plan sepsis no vomit abx per id afebrile trach and peg Subjective ROS Limited/Unobtainable: Yes Allergies: Coded Allergies: CODEINE (Unverified Allergy, Unknown, 01/10/17) PENICILLINS (Unverified Allergy, Unknown, 01/10/17) Objective Last 24 Hour Vital Signs Date Time Temp Pulse Resp B/P (MAP) Pulse Ox O2 Delivery O2 Flow Rate FiO2 01/13/17 20:00 98.1 79 17 96/60 99 Mechanical Ventilator 35 01/13/17 20:00 78 01/13/17 20:00 35 01/13/17 19:44 88 11 99 Mechanical Ventilator 35 01/13/17 19:36 89 13 100 Mechanical Ventilator 35 01/13/17 19:20 90 17 35 01/13/17 16:34 72 16 35 01/13/17 16:00 98.2 83 18 102/46 99 Mechanical Ventilator 35 01/13/17 16:00 69 01/13/17 16:00 35 01/13/17 15:08 Mechanical Ventilator 01/13/17 15:08 Mechanical Ventilator 01/13/17 15:06 76 22 35 01/13/17 13:26 75 10 100 Mechanical Ventilator 35 01/13/17 13:14 73 14 35 01/13/17 13:10 73 14 100 Mechanical Ventilator 35 01/13/17 12:00 35 01/13/17 12:00 97.0 70 18 104/66 99 Mechanical Ventilator 35 01/13/17 12:00 66 01/13/17 10:32 68 14 35 01/13/17 08:58 70 25 35 01/13/17 08:36 78 110/53 01/13/17 08:00 98.1 78 18 110/53 99 Mechanical Ventilator 35 01/13/17 08:00 35 01/13/17 07:49 67 10 100 Mechanical Ventilator 35 01/13/17 07:38 62 10 100 Mechanical Ventilator 35 01/13/17 07:38 35 01/13/17 07:37 60 10 100 Mechanical Ventilator 35 01/13/17 07:30 60 10 100 Mechanical Ventilator 35 01/13/17 07:29 60 10 35 01/13/17 07:25 67 10 98 01/13/17 07:24 65 10 100 01/13/17 07:21 66 01/13/17 04:00 35 01/13/17 04:00 98.1 97 18 130/78 99 Mechanical Ventilator 35 01/13/17 04:00 87 01/13/17 03:38 79 11 35 01/13/17 01:58 88 20 100 Mechanical Ventilator 35 01/13/17 01:48 88 11 100 Mechanical Ventilator 35 01/13/17 01:47 81 11 35 01/13/17 00:00 97.9 90 18 120/95 98 Mechanical Ventilator 35 01/13/17 00:00 92 01/12/17 23:44 82 10 100 Mechanical Ventilator 35 01/12/17 23:33 35 01/12/17 23:33 82 10 98 Mechanical Ventilator 35 01/12/17 23:32 35 01/12/17 23:32 78 12 35 01/12/17 22:58 97.9 81 18 133/67 98 Mechanical Ventilator 35 01/12/17 21:30 75 11 35 Intake and Output 01/13/17 01/14/17 19:00 07:00 Intake Total 555 ml 50 ml Balance 555 ml 50 ml Free Water 100 ml IV Total 185 ml Tube Feeding 270 ml 50 ml # Voids 1 1 # Bowel Movements 1 Laboratory Tests 01/13/17 03:45: White Blood Count 11.9H, Red Blood Count 3.30L, Hemoglobin 10.6#L, Hematocrit 31.8#L, Mean Corpuscular Volume 96, Mean Corpuscular Hemoglobin 32.1H, Mean Corpuscular Hemoglobin Concent 33.3, Red Cell Distribution Width 13.1, Platelet Count 368, Mean Platelet Volume 7.9, Neutrophils (%) (Auto) 81.0H, Lymphocytes ( %) (Auto) 6.1L, Monocytes (%) (Auto) 10.0, Eosinophils (%) (Auto) 1.7, Basophils (%) (Auto) 1.2, Prothrombin Time 10.7, Prothromb Time International Ratio 1.0, Activated Partial Thromboplast Time 26, Sodium Level 144, Potassium Level 3.4L, Chloride Level 110H, Carbon Dioxide Level 26, Anion Gap 9, Blood Urea Nitrogen 16, Creatinine 0.9, Estimat Glomerular Filtration Rate , Glucose Level 91, Calcium Level 8.1L, Total Bilirubin 0.3, Aspartate Amino Transf (AST/ SGOT) 19, Alanine Aminotransferase (ALT/SGPT) 10L, Alkaline Phosphatase 104, Total Protein 5.3L, Albumin 1.5L, Globulin 3.8, Albumin/Globulin Ratio 0.4L Height (Feet): 5 Height (Inches): 2.00 Weight (Pounds): 105 General Appearance: confused Cardiovascular: normal rate Respiratory/Chest: lungs clear Abdomen: soft Fernandez Gomez MD Jan 13, 2017 21:27
--- NOTE | 2017-01-13 21:27 | General Progress Note ---
Assessment/Plan Problem List: (1) GI bleed ICD Codes: K92.2 - Gastrointestinal hemorrhage, unspecified SNOMED: 44620133 (2) Sepsis ICD Codes: A41.9 - Sepsis, unspecified organism SNOMED: 85738814 (3) HCAP (healthcare-associated pneumonia) ICD Codes: J18.9 - Pneumonia, unspecified organism SNOMED: 650605998 (4) UTI (urinary tract infection) ICD Codes: N39.0 - Urinary tract infection, site not specified SNOMED: 52808351 Status: progressing Assessment/Plan sepsis no vomit abx per id afebrile trach and peg Subjective ROS Limited/Unobtainable: Yes Allergies: Coded Allergies: CODEINE (Unverified Allergy, Unknown, 01/10/17) PENICILLINS (Unverified Allergy, Unknown, 01/10/17) Objective Last 24 Hour Vital Signs Date Time Temp Pulse Resp B/P (MAP) Pulse Ox O2 Delivery O2 Flow Rate FiO2 01/13/17 20:00 98.1 79 17 96/60 99 Mechanical Ventilator 35 01/13/17 20:00 78 01/13/17 20:00 35 01/13/17 19:44 88 11 99 Mechanical Ventilator 35 01/13/17 19:36 89 13 100 Mechanical Ventilator 35 01/13/17 19:20 90 17 35 01/13/17 16:34 72 16 35 01/13/17 16:00 98.2 83 18 102/46 99 Mechanical Ventilator 35 01/13/17 16:00 69 01/13/17 16:00 35 01/13/17 15:08 Mechanical Ventilator 01/13/17 15:08 Mechanical Ventilator 01/13/17 15:06 76 22 35 01/13/17 13:26 75 10 100 Mechanical Ventilator 35 01/13/17 13:14 73 14 35 01/13/17 13:10 73 14 100 Mechanical Ventilator 35 01/13/17 12:00 35 01/13/17 12:00 97.0 70 18 104/66 99 Mechanical Ventilator 35 01/13/17 12:00 66 01/13/17 10:32 68 14 35 01/13/17 08:58 70 25 35 01/13/17 08:36 78 110/53 01/13/17 08:00 98.1 78 18 110/53 99 Mechanical Ventilator 35 01/13/17 08:00 35 01/13/17 07:49 67 10 100 Mechanical Ventilator 35 01/13/17 07:38 62 10 100 Mechanical Ventilator 35 01/13/17 07:38 35 01/13/17 07:37 60 10 100 Mechanical Ventilator 35 01/13/17 07:30 60 10 100 Mechanical Ventilator 35 01/13/17 07:29 60 10 35 01/13/17 07:25 67 10 98 01/13/17 07:24 65 10 100 01/13/17 07:21 66 01/13/17 04:00 35 01/13/17 04:00 98.1 97 18 130/78 99 Mechanical Ventilator 35 01/13/17 04:00 87 01/13/17 03:38 79 11 35 01/13/17 01:58 88 20 100 Mechanical Ventilator 35 01/13/17 01:48 88 11 100 Mechanical Ventilator 35 01/13/17 01:47 81 11 35 01/13/17 00:00 97.9 90 18 120/95 98 Mechanical Ventilator 35 01/13/17 00:00 92 01/12/17 23:44 82 10 100 Mechanical Ventilator 35 01/12/17 23:33 35 01/12/17 23:33 82 10 98 Mechanical Ventilator 35 01/12/17 23:32 35 01/12/17 23:32 78 12 35 01/12/17 22:58 97.9 81 18 133/67 98 Mechanical Ventilator 35 01/12/17 21:30 75 11 35 Intake and Output 01/13/17 01/14/17 19:00 07:00 Intake Total 555 ml 50 ml Balance 555 ml 50 ml Free Water 100 ml IV Total 185 ml Tube Feeding 270 ml 50 ml # Voids 1 1 # Bowel Movements 1 Laboratory Tests 01/13/17 03:45: White Blood Count 11.9H, Red Blood Count 3.30L, Hemoglobin 10.6#L, Hematocrit 31.8#L, Mean Corpuscular Volume 96, Mean Corpuscular Hemoglobin 32.1H, Mean Corpuscular Hemoglobin Concent 33.3, Red Cell Distribution Width 13.1, Platelet Count 368, Mean Platelet Volume 7.9, Neutrophils (%) (Auto) 81.0H, Lymphocytes ( %) (Auto) 6.1L, Monocytes (%) (Auto) 10.0, Eosinophils (%) (Auto) 1.7, Basophils (%) (Auto) 1.2, Prothrombin Time 10.7, Prothromb Time International Ratio 1.0, Activated Partial Thromboplast Time 26, Sodium Level 144, Potassium Level 3.4L, Chloride Level 110H, Carbon Dioxide Level 26, Anion Gap 9, Blood Urea Nitrogen 16, Creatinine 0.9, Estimat Glomerular Filtration Rate , Glucose Level 91, Calcium Level 8.1L, Total Bilirubin 0.3, Aspartate Amino Transf (AST/ SGOT) 19, Alanine Aminotransferase (ALT/SGPT) 10L, Alkaline Phosphatase 104, Total Protein 5.3L, Albumin 1.5L, Globulin 3.8, Albumin/Globulin Ratio 0.4L Height (Feet): 5 Height (Inches): 2.00 Weight (Pounds): 105 General Appearance: confused Cardiovascular: normal rate Respiratory/Chest: lungs clear Abdomen: soft Fernandez Gomez MD Jan 13, 2017 21:27
[2017-01-14] VITALS: BP 107/54
[2017-01-14] MEDS: Meropenem 1 GM in NS 110 ML IVPB SCH ×2 (01:02→12:40)
[2017-01-14] MEDS: Vancomycin 750mg/NS 250ml IVPB SCH (01:03)
[2017-01-14 04:00] VITALS: BP 98/75
[2017-01-14 04:47] LABS: HEMOGLOBIN 10.3 G/DL (12.0-16.0); LYMPHOCYTES % (AUTO) 9.2 % (20.0-45.0); MEAN CORPUSCULAR VOLUME 97 FL (80-99); MONOCYTES % (AUTO) 11.8 % (1.0-10.0); PLATELET COUNT 362 K/UL (150-450); RED CELL DISTRIBUTION WIDTH 13.2 % (11.6-14.8); WHITE BLOOD COUNT 13.3 K/UL (4.8-10.8)
[2017-01-14 05:00] LABS: ANION GAP 8 mmol/L (5-15); BLOOD UREA NITROGEN 16 mg/dL (7-18); CALCIUM 7.9 MG/DL (8.5-10.1); CARBON DIOXIDE 25 MMOL/L (21-32); CHLORIDE 112 MMOL/L (98-107); CREATININE 0.9 MG/DL (0.55-1.30); SODIUM 145 MMOL/L (136-145)
[2017-01-14] MEDS: Albuterol/Ipratropium 3ml neb HHN SCH ×3 (07:43→19:23)
[2017-01-14 08:00] VITALS: BP 117/59
[2017-01-14] MEDS: Acetaminophen 650mg/20.3ml ORAL PRN (08:59)
[2017-01-14] MEDS: Docusate 100mg/10ml Liq NG SCH (09:00)
[2017-01-14] MEDS: Valproic Acid 250mg/5ml Liquid NG SCH ×2 (09:00→20:56)
[2017-01-14] MEDS: Memantine 10mg tab GT SCH (09:01)
[2017-01-14] MEDS: Ascorbic Acid 500mg tab GT SCH (09:01)
[2017-01-14] MEDS: Pantoprazole Inj IVP SCH ×2 (09:02→20:56)
--- NOTE | 2017-01-14 10:54 | GI Progress Note ---
Assessment/Plan Problems: (1) Anemia due to acute blood loss ICD Codes: D62 - Acute posthemorrhagic anemia SNOMED: 620375875 (2) GI bleed ICD Codes: K92.2 - Gastrointestinal hemorrhage, unspecified SNOMED: 83661083 (3) Severe sepsis ICD Codes: A41.9 - Sepsis, unspecified organism; R65.20 - Severe sepsis without septic shock SNOMED: 19703991 (4) Tracheostomy dependence ICD Codes: Z93.0 - Tracheostomy status SNOMED: 318231540, 881783840 Status: unchanged Status Narrative Discussed with Dr. Amor. Assessment/Plan s/p EGD SUMMARY FINDINGS: 1. Minimum distal esophagitis. 2. Distal esophageal ring. 3. Gastritis. 4. Gastric polyps. RECOMMENDATIONS: fu biopsy and treat ppi BID elevate HOB GT site care/flush prn fu OB stool monitor H&H, prn transfusion consider colonoscopy if needed fu labs The patient was seen and examined at bedside and all new and available data was reviewed in the patients chart. I agree with the above findings, impression and plan. (Patient seen earlier today. Signature stamp does not reflect patient encounter time.). - Theodora Amor MD Subjective Subjective limited Objective Last 24 Hour Vital Signs Date Time Temp Pulse Resp B/P (MAP) Pulse Ox O2 Delivery O2 Flow Rate FiO2 01/14/17 09:29 101.2 01/14/17 09:01 83 117/59 01/14/17 08:45 90 18 35 01/14/17 08:00 35 01/14/17 08:00 82 01/14/17 08:00 101.2 83 21 117/59 98 Mechanical Ventilator 35 01/14/17 07:46 90 20 35 01/14/17 07:40 90 20 100 Mechanical Ventilator 35 01/14/17 07:30 86 20 99 Mechanical Ventilator 35 01/14/17 07:30 90 20 100 Mechanical Ventilator 35 01/14/17 07:30 35 01/14/17 07:20 88 20 100 Mechanical Ventilator 35 01/14/17 04:58 84 21 35 01/14/17 04:00 91 01/14/17 04:00 98.1 82 18 98/75 98 Mechanical Ventilator 35 01/14/17 04:00 35 01/14/17 03:10 93 22 35 01/14/17 01:19 90 11 35 11/1/17 00:48 Mechanical Ventilator 35 01/14/17 00:48 Mechanical Ventilator 35 01/14/17 00:00 35 01/14/17 00:00 98.2 81 21 107/54 97 Mechanical Ventilator 35 01/14/17 00:00 96 01/13/17 22:47 91 11 98 Mechanical Ventilator 35 01/13/17 22:45 89 11 35 01/13/17 22:40 35 01/13/17 22:40 89 11 98 Mechanical Ventilator 35 01/13/17 21:30 76 16 35 01/13/17 20:00 98.1 79 17 96/60 99 Mechanical Ventilator 35 01/13/17 20:00 99 01/13/17 20:00 35 01/13/17 19:44 88 11 99 Mechanical Ventilator 35 01/13/17 19:36 89 13 100 Mechanical Ventilator 35 01/13/17 19:20 90 17 35 01/13/17 16:34 72 16 35 01/13/17 16:00 98.2 83 18 102/46 99 Mechanical Ventilator 35 01/13/17 16:00 69 01/13/17 16:00 35 01/13/17 15:08 Mechanical Ventilator 01/13/17 15:08 Mechanical Ventilator 01/13/17 15:06 76 22 35 01/13/17 13:26 75 10 100 Mechanical Ventilator 35 01/13/17 13:14 73 14 35 01/13/17 13:10 73 14 100 Mechanical Ventilator 35 01/13/17 12:00 35 01/13/17 12:00 97.0 70 18 104/66 99 Mechanical Ventilator 35 01/13/17 12:00 66 Laboratory Tests Test 01/13/17 20:30 01/14/17 00:15 01/14/17 03:00 Stool Occult Blood Pending Vancomycin Level Trough 18.4 ug/mL (5.0-12.0) H White Blood Count 13.3 K/UL (4.8-10.8) H Red Blood Count 3.10 M/UL (4.20-5.40) L Hemoglobin 10.3 G/DL (12.0-16.0) L Hematocrit 30.0 % (37.0-47.0) L Mean Corpuscular Volume 97 FL (80-99) Mean Corpuscular Hemoglobin 33.2 PG (27.0-31.0) H Mean Corpuscular Hemoglobin Concent 34.2 G/DL (32.0-36.0) Red Cell Distribution Width 13.2 % (11.6-14.8) Platelet Count 362 K/UL (150-450) Mean Platelet Volume 7.8 FL (6.5-10.1) Neutrophils (%) (Auto) 76.0 % (45.0-75.0) H Lymphocytes (%) (Auto) 9.2 % (20.0-45.0) L Monocytes (%) (Auto) 11.8 % (1.0-10.0) H Eosinophils (%) (Auto) 1.0 % (0.0-3.0) Basophils (%) (Auto) 2.0 % (0.0-2.0) Sodium Level 145 MMOL/L (136-145) Potassium Level 4.0 MMOL/L (3.5-5.1) Chloride Level 112 MMOL/L (98-107) H Carbon Dioxide Level 25 MMOL/L (21-32) Anion Gap 8 mmol/L (5-15) Blood Urea Nitrogen 16 mg/dL (7-18) Creatinine 0.9 MG/DL (0.55-1.30) Estimat Glomerular Filtration Rate mL/min (>60) Glucose Level 124 MG/DL (74-106) H Calcium Level 7.9 MG/DL (8.5-10.1) L Height (Feet): 5 Height (Inches): 2.00 Weight (Pounds): 105 General Appearance: alert Cardiovascular: normal rate Respiratory/Chest: no respiratory distress, other - mech vent Abdominal Exam: non tender, soft Rosibel Newton N.PVazquez Jan 14, 2017 10:54 MICHELLE AMOR Jan 16, 2017 09:36
--- NOTE | 2017-01-14 10:54 | GI Progress Note ---
Assessment/Plan Problems: (1) Anemia due to acute blood loss ICD Codes: D62 - Acute posthemorrhagic anemia SNOMED: 427040049 (2) GI bleed ICD Codes: K92.2 - Gastrointestinal hemorrhage, unspecified SNOMED: 31336164 (3) Severe sepsis ICD Codes: A41.9 - Sepsis, unspecified organism; R65.20 - Severe sepsis without septic shock SNOMED: 60926079 (4) Tracheostomy dependence ICD Codes: Z93.0 - Tracheostomy status SNOMED: 418634893, 288882052 Status: unchanged Status Narrative Discussed with Dr. Amor. Assessment/Plan s/p EGD SUMMARY FINDINGS: 1. Minimum distal esophagitis. 2. Distal esophageal ring. 3. Gastritis. 4. Gastric polyps. RECOMMENDATIONS: fu biopsy and treat ppi BID elevate HOB GT site care/flush prn fu OB stool monitor H&H, prn transfusion consider colonoscopy if needed fu labs The patient was seen and examined at bedside and all new and available data was reviewed in the patients chart. I agree with the above findings, impression and plan. (Patient seen earlier today. Signature stamp does not reflect patient encounter time.). - Theodora Amor MD Subjective Subjective limited Objective Last 24 Hour Vital Signs Date Time Temp Pulse Resp B/P (MAP) Pulse Ox O2 Delivery O2 Flow Rate FiO2 01/14/17 09:29 101.2 01/14/17 09:01 83 117/59 01/14/17 08:45 90 18 35 01/14/17 08:00 35 01/14/17 08:00 82 01/14/17 08:00 101.2 83 21 117/59 98 Mechanical Ventilator 35 01/14/17 07:46 90 20 35 01/14/17 07:40 90 20 100 Mechanical Ventilator 35 01/14/17 07:30 86 20 99 Mechanical Ventilator 35 01/14/17 07:30 90 20 100 Mechanical Ventilator 35 01/14/17 07:30 35 01/14/17 07:20 88 20 100 Mechanical Ventilator 35 01/14/17 04:58 84 21 35 01/14/17 04:00 91 01/14/17 04:00 98.1 82 18 98/75 98 Mechanical Ventilator 35 01/14/17 04:00 35 01/14/17 03:10 93 22 35 01/14/17 01:19 90 11 35 11/1/17 00:48 Mechanical Ventilator 35 01/14/17 00:48 Mechanical Ventilator 35 01/14/17 00:00 35 01/14/17 00:00 98.2 81 21 107/54 97 Mechanical Ventilator 35 01/14/17 00:00 96 01/13/17 22:47 91 11 98 Mechanical Ventilator 35 01/13/17 22:45 89 11 35 01/13/17 22:40 35 01/13/17 22:40 89 11 98 Mechanical Ventilator 35 01/13/17 21:30 76 16 35 01/13/17 20:00 98.1 79 17 96/60 99 Mechanical Ventilator 35 01/13/17 20:00 99 01/13/17 20:00 35 01/13/17 19:44 88 11 99 Mechanical Ventilator 35 01/13/17 19:36 89 13 100 Mechanical Ventilator 35 01/13/17 19:20 90 17 35 01/13/17 16:34 72 16 35 01/13/17 16:00 98.2 83 18 102/46 99 Mechanical Ventilator 35 01/13/17 16:00 69 01/13/17 16:00 35 01/13/17 15:08 Mechanical Ventilator 01/13/17 15:08 Mechanical Ventilator 01/13/17 15:06 76 22 35 01/13/17 13:26 75 10 100 Mechanical Ventilator 35 01/13/17 13:14 73 14 35 01/13/17 13:10 73 14 100 Mechanical Ventilator 35 01/13/17 12:00 35 01/13/17 12:00 97.0 70 18 104/66 99 Mechanical Ventilator 35 01/13/17 12:00 66 Laboratory Tests Test 01/13/17 20:30 01/14/17 00:15 01/14/17 03:00 Stool Occult Blood Pending Vancomycin Level Trough 18.4 ug/mL (5.0-12.0) H White Blood Count 13.3 K/UL (4.8-10.8) H Red Blood Count 3.10 M/UL (4.20-5.40) L Hemoglobin 10.3 G/DL (12.0-16.0) L Hematocrit 30.0 % (37.0-47.0) L Mean Corpuscular Volume 97 FL (80-99) Mean Corpuscular Hemoglobin 33.2 PG (27.0-31.0) H Mean Corpuscular Hemoglobin Concent 34.2 G/DL (32.0-36.0) Red Cell Distribution Width 13.2 % (11.6-14.8) Platelet Count 362 K/UL (150-450) Mean Platelet Volume 7.8 FL (6.5-10.1) Neutrophils (%) (Auto) 76.0 % (45.0-75.0) H Lymphocytes (%) (Auto) 9.2 % (20.0-45.0) L Monocytes (%) (Auto) 11.8 % (1.0-10.0) H Eosinophils (%) (Auto) 1.0 % (0.0-3.0) Basophils (%) (Auto) 2.0 % (0.0-2.0) Sodium Level 145 MMOL/L (136-145) Potassium Level 4.0 MMOL/L (3.5-5.1) Chloride Level 112 MMOL/L (98-107) H Carbon Dioxide Level 25 MMOL/L (21-32) Anion Gap 8 mmol/L (5-15) Blood Urea Nitrogen 16 mg/dL (7-18) Creatinine 0.9 MG/DL (0.55-1.30) Estimat Glomerular Filtration Rate mL/min (>60) Glucose Level 124 MG/DL (74-106) H Calcium Level 7.9 MG/DL (8.5-10.1) L Height (Feet): 5 Height (Inches): 2.00 Weight (Pounds): 105 General Appearance: alert Cardiovascular: normal rate Respiratory/Chest: no respiratory distress, other - mech vent Abdominal Exam: non tender, soft Rosibel Newton N.PVazquez Jan 14, 2017 10:54 MICHELLE AMOR Jan 16, 2017 09:36
--- NOTE | 2017-01-14 10:54 | GI Progress Note ---
Assessment/Plan Problems: (1) Anemia due to acute blood loss ICD Codes: D62 - Acute posthemorrhagic anemia SNOMED: 833243112 (2) GI bleed ICD Codes: K92.2 - Gastrointestinal hemorrhage, unspecified SNOMED: 06263168 (3) Severe sepsis ICD Codes: A41.9 - Sepsis, unspecified organism; R65.20 - Severe sepsis without septic shock SNOMED: 00618868 (4) Tracheostomy dependence ICD Codes: Z93.0 - Tracheostomy status SNOMED: 290982512, 440962340 Status: unchanged Status Narrative Discussed with Dr. Amor. Assessment/Plan s/p EGD SUMMARY FINDINGS: 1. Minimum distal esophagitis. 2. Distal esophageal ring. 3. Gastritis. 4. Gastric polyps. RECOMMENDATIONS: fu biopsy and treat ppi BID elevate HOB GT site care/flush prn fu OB stool monitor H&H, prn transfusion consider colonoscopy if needed fu labs The patient was seen and examined at bedside and all new and available data was reviewed in the patients chart. I agree with the above findings, impression and plan. (Patient seen earlier today. Signature stamp does not reflect patient encounter time.). - Theodora Amor MD Subjective Subjective limited Objective Last 24 Hour Vital Signs Date Time Temp Pulse Resp B/P (MAP) Pulse Ox O2 Delivery O2 Flow Rate FiO2 01/14/17 09:29 101.2 01/14/17 09:01 83 117/59 01/14/17 08:45 90 18 35 01/14/17 08:00 35 01/14/17 08:00 82 01/14/17 08:00 101.2 83 21 117/59 98 Mechanical Ventilator 35 01/14/17 07:46 90 20 35 01/14/17 07:40 90 20 100 Mechanical Ventilator 35 01/14/17 07:30 86 20 99 Mechanical Ventilator 35 01/14/17 07:30 90 20 100 Mechanical Ventilator 35 01/14/17 07:30 35 01/14/17 07:20 88 20 100 Mechanical Ventilator 35 01/14/17 04:58 84 21 35 01/14/17 04:00 91 01/14/17 04:00 98.1 82 18 98/75 98 Mechanical Ventilator 35 01/14/17 04:00 35 01/14/17 03:10 93 22 35 01/14/17 01:19 90 11 35 11/1/17 00:48 Mechanical Ventilator 35 01/14/17 00:48 Mechanical Ventilator 35 01/14/17 00:00 35 01/14/17 00:00 98.2 81 21 107/54 97 Mechanical Ventilator 35 01/14/17 00:00 96 01/13/17 22:47 91 11 98 Mechanical Ventilator 35 01/13/17 22:45 89 11 35 01/13/17 22:40 35 01/13/17 22:40 89 11 98 Mechanical Ventilator 35 01/13/17 21:30 76 16 35 01/13/17 20:00 98.1 79 17 96/60 99 Mechanical Ventilator 35 01/13/17 20:00 99 01/13/17 20:00 35 01/13/17 19:44 88 11 99 Mechanical Ventilator 35 01/13/17 19:36 89 13 100 Mechanical Ventilator 35 01/13/17 19:20 90 17 35 01/13/17 16:34 72 16 35 01/13/17 16:00 98.2 83 18 102/46 99 Mechanical Ventilator 35 01/13/17 16:00 69 01/13/17 16:00 35 01/13/17 15:08 Mechanical Ventilator 01/13/17 15:08 Mechanical Ventilator 01/13/17 15:06 76 22 35 01/13/17 13:26 75 10 100 Mechanical Ventilator 35 01/13/17 13:14 73 14 35 01/13/17 13:10 73 14 100 Mechanical Ventilator 35 01/13/17 12:00 35 01/13/17 12:00 97.0 70 18 104/66 99 Mechanical Ventilator 35 01/13/17 12:00 66 Laboratory Tests Test 01/13/17 20:30 01/14/17 00:15 01/14/17 03:00 Stool Occult Blood Pending Vancomycin Level Trough 18.4 ug/mL (5.0-12.0) H White Blood Count 13.3 K/UL (4.8-10.8) H Red Blood Count 3.10 M/UL (4.20-5.40) L Hemoglobin 10.3 G/DL (12.0-16.0) L Hematocrit 30.0 % (37.0-47.0) L Mean Corpuscular Volume 97 FL (80-99) Mean Corpuscular Hemoglobin 33.2 PG (27.0-31.0) H Mean Corpuscular Hemoglobin Concent 34.2 G/DL (32.0-36.0) Red Cell Distribution Width 13.2 % (11.6-14.8) Platelet Count 362 K/UL (150-450) Mean Platelet Volume 7.8 FL (6.5-10.1) Neutrophils (%) (Auto) 76.0 % (45.0-75.0) H Lymphocytes (%) (Auto) 9.2 % (20.0-45.0) L Monocytes (%) (Auto) 11.8 % (1.0-10.0) H Eosinophils (%) (Auto) 1.0 % (0.0-3.0) Basophils (%) (Auto) 2.0 % (0.0-2.0) Sodium Level 145 MMOL/L (136-145) Potassium Level 4.0 MMOL/L (3.5-5.1) Chloride Level 112 MMOL/L (98-107) H Carbon Dioxide Level 25 MMOL/L (21-32) Anion Gap 8 mmol/L (5-15) Blood Urea Nitrogen 16 mg/dL (7-18) Creatinine 0.9 MG/DL (0.55-1.30) Estimat Glomerular Filtration Rate mL/min (>60) Glucose Level 124 MG/DL (74-106) H Calcium Level 7.9 MG/DL (8.5-10.1) L Height (Feet): 5 Height (Inches): 2.00 Weight (Pounds): 105 General Appearance: alert Cardiovascular: normal rate Respiratory/Chest: no respiratory distress, other - mech vent Abdominal Exam: non tender, soft Rosibel Newton N.PVazquez Jan 14, 2017 10:54 MICHELLE AMOR Jan 16, 2017 09:36
--- NOTE | 2017-01-14 11:48 | Diagnostic Imaging Report ---
Indication: COUGH, shortness of breath Technique: One view of the chest Comparison: 01/12/2017 Findings: The heart is enlarged. Diffuse hazy infiltrate throughout the right mid and lower lung is again demonstrated. There are bilateral pleural effusions again noted. Retrocardiac consolidation and pleural fluid is again demonstrated. Tracheostomy remains. Findings are overall unchanged Impression: Unchanged, over one day, findings as above.
[2017-01-14 12:00] VITALS: BP 106/50
[2017-01-14] MEDS ORDERED: NS 275ml ONE (15:56)
[2017-01-14 16:00] VITALS: BP 99/49
--- NOTE | 2017-01-14 16:50 | Pulmonology Progress Note ---
Assessment/Plan Assessment/Plan 1. Ventilator-dependent respiratory failure. 2. Chronic pneumonia, possible underlying congestive heart failure. 3. Urinary tract infection. 4. Sepsis. 5. Hypertension. 6. Diabetes. temps >101, WBC up CXR w infiltrates and effusions cont vent support abx per ID Subjective ROS Limited/Unobtainable: Yes Allergies: Coded Allergies: CODEINE (Unverified Allergy, Unknown, 01/10/17) PENICILLINS (Unverified Allergy, Unknown, 01/10/17) Objective Last 24 Hour Vital Signs Date Time Temp Pulse Resp B/P (MAP) Pulse Ox O2 Delivery O2 Flow Rate FiO2 01/14/17 16:00 91 01/14/17 16:00 35 01/14/17 16:00 98.5 72 20 99/49 100 Mechanical Ventilator 35 01/14/17 15:17 81 16 35 01/14/17 12:45 92 20 100 Mechanical Ventilator 35 01/14/17 12:45 80 21 35 01/14/17 12:30 35 01/14/17 12:30 82 20 100 Mechanical Ventilator 35 01/14/17 12:30 83 20 99 Mechanical Ventilator 35 01/14/17 12:20 86 20 100 Mechanical Ventilator 35 01/14/17 12:00 70 01/14/17 12:00 35 01/14/17 12:00 98.4 80 19 106/50 98 Mechanical Ventilator 35 01/14/17 11:25 67 21 35 01/14/17 09:29 101.2 01/14/17 09:01 83 117/59 01/14/17 08:45 90 18 35 01/14/17 08:00 35 01/14/17 08:00 82 01/14/17 08:00 101.2 83 21 117/59 98 Mechanical Ventilator 35 01/14/17 07:46 90 20 35 01/14/17 07:40 90 20 100 Mechanical Ventilator 35 01/14/17 07:30 86 20 99 Mechanical Ventilator 35 01/14/17 07:30 90 20 100 Mechanical Ventilator 35 01/14/17 07:30 35 01/14/17 07:20 88 20 100 Mechanical Ventilator 35 01/14/17 04:58 84 21 35 01/14/17 04:00 91 01/14/17 04:00 98.1 82 18 98/75 98 Mechanical Ventilator 35 01/14/17 04:00 35 01/14/17 03:10 93 22 35 01/14/17 01:19 90 11 35 01/14/17 00:48 Mechanical Ventilator 35 01/14/17 00:48 Mechanical Ventilator 35 01/14/17 00:00 35 01/14/17 00:00 98.2 81 21 107/54 97 Mechanical Ventilator 35 01/14/17 00:00 96 01/13/17 22:47 91 11 98 Mechanical Ventilator 35 01/13/17 22:45 89 11 35 01/13/17 22:40 35 01/13/17 22:40 89 11 98 Mechanical Ventilator 35 01/13/17 21:30 76 16 35 01/13/17 20:00 98.1 79 17 96/60 99 Mechanical Ventilator 35 01/13/17 20:00 99 01/13/17 20:00 35 01/13/17 19:44 88 11 99 Mechanical Ventilator 35 01/13/17 19:36 89 13 100 Mechanical Ventilator 35 01/13/17 19:20 90 17 35 Intake and Output 01/14/17 01/15/17 19:00 07:00 Intake Total 670 ml Balance 670 ml Free Water 200 ml IV Total 110 ml Tube Feeding 360 ml Objective trach/vent G tube General Appearance: no acute distress, cachetic Respiratory/Chest: rhonchi Cardiovascular: normal rate Microbiology Date/Time Source Procedure Growth Status 01/12/17 10:20 Blood Blood Culture - Preliminary NO GROWTH AFTER 24 HOURS Resulted 01/12/17 10:10 Blood Blood Culture - Preliminary NO GROWTH AFTER 24 HOURS Resulted 01/12/17 14:00 Sputum Induced Gram Stain - Final Resulted 01/12/17 14:00 Sputum Induced Sputum Culture Pending Resulted Laboratory Tests 01/13/17 20:30: Stool Occult Blood Negative 01/14/17 00:15: Vancomycin Level Trough 18.4H 01/14/17 03:00: White Blood Count 13.3H, Red Blood Count 3.10L, Hemoglobin 10.3L, Hematocrit 30.0L, Mean Corpuscular Volume 97, Mean Corpuscular Hemoglobin 33.2H, Mean Corpuscular Hemoglobin Concent 34.2, Red Cell Distribution Width 13.2, Platelet Count 362, Mean Platelet Volume 7.8, Neutrophils (%) (Auto) 76.0H, Lymphocytes ( %) (Auto) 9.2L, Monocytes (%) (Auto) 11.8H, Eosinophils (%) (Auto) 1.0, Basophils (%) (Auto) 2.0, Sodium Level 145, Potassium Level 4.0, Chloride Level 112H, Carbon Dioxide Level 25, Anion Gap 8, Blood Urea Nitrogen 16, Creatinine 0.9, Estimat Glomerular Filtration Rate , Glucose Level 124H, Calcium Level 7.9L Current Medications Medications (Trade) Dose Ordered Sig/Sky Route PRN Reason Start Time Stop Time Status Last Admin Dose Admin Acetaminophen (Tylenol) 650 mg Q6H PRN ORAL Mild Pain/Temp > 100.5 01/10/17 18:00 02/09/17 17:59 01/14/17 08:59 Acetylcysteine (Mucomyst) 400 mg Q8HRT IN-LINE 01/12/17 23:00 02/09/17 21:59 01/14/17 12:30 Albuterol/ Ipratropium (Albuterol/ Ipratropium) 3 ml Q6HRT HHN 01/11/17 13:00 01/16/17 12:59 01/14/17 12:30 Amlodipine Besylate (Norvasc) 2.5 mg DAILY GT 01/11/17 09:00 02/10/17 08:59 01/14/17 09:01 Ascorbic Acid (Vitamin C) 500 mg DAILY GT 01/11/17 09:00 02/10/17 08:59 01/14/17 09:01 Dextrose (Dextrose 50%) STAT PRN IV Hypoglycemia 01/10/17 14:45 02/09/17 14:44 Docusate Sodium (Colace) 250 mg DAILY NG 01/11/17 09:00 02/10/17 08:59 01/14/17 09:00 Memantine (Namenda) 10 mg DAILY GT 01/11/17 09:00 02/10/17 08:59 01/14/17 09:01 Meropenem 1 gm/ Sodium Chloride 110 ml @ 220 mls/hr Q12HR@0100,1300 IVPB 01/10/17 13:30 01/15/17 13:29 01/14/17 12:40 Ondansetron HCl (Zofran) 4 mg Q6H PRN IVP Nausea & Vomiting 01/10/17 14:45 02/09/17 14:44 Pantoprazole (Protonix) 40 mg EVERY 12 HOURS IVP 01/11/17 09:00 02/10/17 08:59 01/14/17 09:02 Polyethylene Glycol (Miralax) 17 gm BEDTIME ORAL 01/13/17 21:00 02/12/17 20:59 Risperidone (RisperDAL) 1 mg QHS GT 01/10/17 21:00 02/09/17 20:59 01/13/17 20:35 Valproic Acid (Depakene) 250 mg EVERY 12 HOURS NG 01/10/17 21:00 02/09/17 20:59 01/14/17 09:00 Vancomycin HCl (Vanco rx to dose) 1 ea DAILY PRN MISC Per rx protocol 01/10/17 12:15 02/09/17 12:14 Vancomycin HCl 500 mg/Dextrose 110 ml @ 110 mls/hr Q24H IVPB 01/15/17 00:00 01/19/17 23:59 Vancomycin/Sodium Chloride 250 ml @ 166.667 mls/hr Q24H IVPB 01/13/17 01:00 01/14/17 23:59 01/14/17 01:03 MELANIE ENGLISH Jan 14, 2017 16:50
--- NOTE | 2017-01-14 18:06 | Infectious Diseases Prog Note ---
Assessment/Plan Problems: (1) HCAP (healthcare-associated pneumonia) Assessment & Plan: due to staph aureus and haemophilus influenza with bilateral infiltrates, continue to spike fever while on meropenem , and vancomycin , rule out empyema , will order CT chest for further evaluation (2) UTI (urinary tract infection) Assessment & Plan: with santhosh, less than 10 0000 colony, most likely colonization, recommend to change travis catheter , no need for antifungal (3) Sepsis Assessment & Plan: due to the above, on vancomycin and meropenem pending culture results (4) GI bleed Assessment & Plan: monitor H/H, transfuse as needed , GI is following (5) COPD exacerbation Assessment & Plan: continue nebulizer therapy, monitor CXR (6) Open nasal wound Assessment & Plan: not deep to the nasal cavity with no necrosis , no evidenc of fungal growth , and she had previously candiduria at [facility], culture here showed candda again, most likely colonizer (7) Sacral wound Assessment & Plan: continue local wound care and off loading , consult wound care Subjective ROS Limited/Unobtainable: Yes Allergies: Coded Allergies: CODEINE (Unverified Allergy, Unknown, 01/10/17) PENICILLINS (Unverified Allergy, Unknown, 01/10/17) Subjective she is lying in bed, comfortable, on mechanical ventilation with trach, afebrile , open eyes spontaneously , no GI bleeding Objective Vital Signs Last 24 Hour Vital Signs Date Time Temp Pulse Resp B/P (MAP) Pulse Ox O2 Delivery O2 Flow Rate FiO2 01/14/17 17:38 97 20 35 01/14/17 16:00 91 01/14/17 16:00 35 01/14/17 16:00 98.5 72 20 99/49 100 Mechanical Ventilator 35 01/14/17 15:17 81 16 35 01/14/17 12:45 92 20 100 Mechanical Ventilator 35 01/14/17 12:45 80 21 35 01/14/17 12:30 35 01/14/17 12:30 82 20 100 Mechanical Ventilator 35 01/14/17 12:30 83 20 99 Mechanical Ventilator 35 01/14/17 12:20 86 20 100 Mechanical Ventilator 35 01/14/17 12:00 70 01/14/17 12:00 35 01/14/17 12:00 98.4 80 19 106/50 98 Mechanical Ventilator 35 01/14/17 11:25 67 21 35 01/14/17 09:29 101.2 01/14/17 09:01 83 117/59 01/14/17 08:45 90 18 35 01/14/17 08:00 35 01/14/17 08:00 82 01/14/17 08:00 101.2 83 21 117/59 98 Mechanical Ventilator 35 01/14/17 07:46 90 20 35 01/14/17 07:40 90 20 100 Mechanical Ventilator 35 01/14/17 07:30 86 20 99 Mechanical Ventilator 35 01/14/17 07:30 90 20 100 Mechanical Ventilator 35 01/14/17 07:30 35 01/14/17 07:20 88 20 100 Mechanical Ventilator 35 01/14/17 04:58 84 21 35 01/14/17 04:00 91 01/14/17 04:00 98.1 82 18 98/75 98 Mechanical Ventilator 35 01/14/17 04:00 35 01/14/17 03:10 93 22 35 01/14/17 01:19 90 11 35 01/14/17 00:48 Mechanical Ventilator 35 01/14/17 00:48 Mechanical Ventilator 35 01/14/17 00:00 35 01/14/17 00:00 98.2 81 21 107/54 97 Mechanical Ventilator 35 01/14/17 00:00 96 01/13/17 22:47 91 11 98 Mechanical Ventilator 35 01/13/17 22:45 89 11 35 01/13/17 22:40 35 01/13/17 22:40 89 11 98 Mechanical Ventilator 35 01/13/17 21:30 76 16 35 01/13/17 20:00 98.1 79 17 96/60 99 Mechanical Ventilator 35 01/13/17 20:00 99 01/13/17 20:00 35 01/13/17 19:44 88 11 99 Mechanical Ventilator 35 01/13/17 19:36 89 13 100 Mechanical Ventilator 35 01/13/17 19:20 90 17 35 Height (Feet): 5 Height (Inches): 2.00 Weight (Pounds): 105 General Appearance: WD/WN, no acute distress, cachetic HEENT: normocephalic, atraumatic, anicteric, mucous membranes moist, PERRL Respiratory/Chest: chest wall non-tender, no respiratory distress, no accessory muscle use, decreased breath sounds, crackles/rales Cardiovascular: normal peripheral pulses, normal rate, regular rhythm, no gallop/murmur, no JVD Abdomen: normal bowel sounds, soft, non tender, no organomegaly, non distended , no mass, no scars Genitourinary: normal external genitalia Extremities: no cyanosis, no clubbing Skin: no rash, no lesions, no ulcers Neurologic/Psychiatric: alert Microbiology Date/Time Source Procedure Growth Status 01/12/17 10:20 Blood Blood Culture - Preliminary NO GROWTH AFTER 24 HOURS Resulted 01/12/17 10:10 Blood Blood Culture - Preliminary NO GROWTH AFTER 24 HOURS Resulted 01/12/17 14:00 Sputum Induced Gram Stain - Final Resulted 01/12/17 14:00 Sputum Induced Sputum Culture Pending Resulted Laboratory Tests Test 01/13/17 20:30 01/14/17 00:15 01/14/17 03:00 Stool Occult Blood Negative (NEGATIVE) Vancomycin Level Trough 18.4 ug/mL (5.0-12.0) H White Blood Count 13.3 K/UL (4.8-10.8) H Red Blood Count 3.10 M/UL (4.20-5.40) L Hemoglobin 10.3 G/DL (12.0-16.0) L Hematocrit 30.0 % (37.0-47.0) L Mean Corpuscular Volume 97 FL (80-99) Mean Corpuscular Hemoglobin 33.2 PG (27.0-31.0) H Mean Corpuscular Hemoglobin Concent 34.2 G/DL (32.0-36.0) Red Cell Distribution Width 13.2 % (11.6-14.8) Platelet Count 362 K/UL (150-450) Mean Platelet Volume 7.8 FL (6.5-10.1) Neutrophils (%) (Auto) 76.0 % (45.0-75.0) H Lymphocytes (%) (Auto) 9.2 % (20.0-45.0) L Monocytes (%) (Auto) 11.8 % (1.0-10.0) H Eosinophils (%) (Auto) 1.0 % (0.0-3.0) Basophils (%) (Auto) 2.0 % (0.0-2.0) Sodium Level 145 MMOL/L (136-145) Potassium Level 4.0 MMOL/L (3.5-5.1) Chloride Level 112 MMOL/L (98-107) H Carbon Dioxide Level 25 MMOL/L (21-32) Anion Gap 8 mmol/L (5-15) Blood Urea Nitrogen 16 mg/dL (7-18) Creatinine 0.9 MG/DL (0.55-1.30) Estimat Glomerular Filtration Rate mL/min (>60) Glucose Level 124 MG/DL (74-106) H Calcium Level 7.9 MG/DL (8.5-10.1) L Current Medications Medications (Trade) Dose Ordered Sig/Sky Route PRN Reason Start Time Stop Time Status Last Admin Dose Admin Acetaminophen (Tylenol) 650 mg Q6H PRN ORAL Mild Pain/Temp > 100.5 01/10/17 18:00 02/09/17 17:59 01/14/17 08:59 Acetylcysteine (Mucomyst) 400 mg Q8HRT IN-LINE 01/12/17 23:00 02/09/17 21:59 01/14/17 12:30 Albuterol/ Ipratropium (Albuterol/ Ipratropium) 3 ml Q6HRT HHN 01/11/17 13:00 01/16/17 12:59 01/14/17 12:30 Amlodipine Besylate (Norvasc) 2.5 mg DAILY GT 01/11/17 09:00 02/10/17 08:59 01/14/17 09:01 Ascorbic Acid (Vitamin C) 500 mg DAILY GT 01/11/17 09:00 02/10/17 08:59 01/14/17 09:01 Dextrose (Dextrose 50%) STAT PRN IV Hypoglycemia 01/10/17 14:45 02/09/17 14:44 Docusate Sodium (Colace) 250 mg DAILY NG 01/11/17 09:00 02/10/17 08:59 01/14/17 09:00 Memantine (Namenda) 10 mg DAILY GT 01/11/17 09:00 02/10/17 08:59 01/14/17 09:01 Meropenem 1 gm/ Sodium Chloride 110 ml @ 220 mls/hr Q12HR@0100,1300 IVPB 01/10/17 13:30 01/15/17 13:29 01/14/17 12:40 Ondansetron HCl (Zofran) 4 mg Q6H PRN IVP Nausea & Vomiting 01/10/17 14:45 02/09/17 14:44 Pantoprazole (Protonix) 40 mg EVERY 12 HOURS IVP 01/11/17 09:00 02/10/17 08:59 01/14/17 09:02 Polyethylene Glycol (Miralax) 17 gm BEDTIME ORAL 01/13/17 21:00 02/12/17 20:59 Risperidone (RisperDAL) 1 mg QHS GT 01/10/17 21:00 02/09/17 20:59 01/13/17 20:35 Valproic Acid (Depakene) 250 mg EVERY 12 HOURS NG 01/10/17 21:00 02/09/17 20:59 01/14/17 09:00 Vancomycin HCl (Vanco rx to dose) 1 ea DAILY PRN MISC Per rx protocol 01/10/17 12:15 02/09/17 12:14 Vancomycin HCl 500 mg/Dextrose 110 ml @ 110 mls/hr Q24H IVPB 01/15/17 00:00 01/19/17 23:59 Vancomycin/Sodium Chloride 250 ml @ 166.667 mls/hr Q24H IVPB 01/13/17 01:00 01/14/17 23:59 01/14/17 01:03 Shankar Qiu M.D. Jan 14, 2017 18:06
--- NOTE | 2017-01-14 18:13 | General Progress Note ---
Assessment/Plan Assessment/Plan Assessment/Plan # Anemia due to chronic disease --> no GI bleed, s/p egd and biopsy. --> ferritin elevated, no iron deficiency --> hgb goal is >7 --> transfuse if hgb below 7 # HCAP (healthcare-associated pneumonia) - on antibiotics on ventilator # UTI (urinary tract infection) # Sepsis # COPD exacerbation - on nebulizer prn Subjective ROS Limited/Unobtainable: Yes Constitutional: Reports: fever, weakness Allergies: Coded Allergies: CODEINE (Unverified Allergy, Unknown, 01/10/17) PENICILLINS (Unverified Allergy, Unknown, 01/10/17) Subjective nonverbal, temp above 100 Objective Last 24 Hour Vital Signs Date Time Temp Pulse Resp B/P (MAP) Pulse Ox O2 Delivery O2 Flow Rate FiO2 01/14/17 17:38 97 20 35 01/14/17 16:00 91 01/14/17 16:00 35 01/14/17 16:00 98.5 72 20 99/49 100 Mechanical Ventilator 35 01/14/17 15:17 81 16 35 01/14/17 12:45 92 20 100 Mechanical Ventilator 35 01/14/17 12:45 80 21 35 01/14/17 12:30 35 01/14/17 12:30 82 20 100 Mechanical Ventilator 35 01/14/17 12:30 83 20 99 Mechanical Ventilator 35 01/14/17 12:20 86 20 100 Mechanical Ventilator 35 01/14/17 12:00 70 01/14/17 12:00 35 01/14/17 12:00 98.4 80 19 106/50 98 Mechanical Ventilator 35 01/14/17 11:25 67 21 35 01/14/17 09:29 101.2 01/14/17 09:01 83 117/59 01/14/17 08:45 90 18 35 01/14/17 08:00 35 01/14/17 08:00 82 01/14/17 08:00 101.2 83 21 117/59 98 Mechanical Ventilator 35 01/14/17 07:46 90 20 35 01/14/17 07:40 90 20 100 Mechanical Ventilator 35 01/14/17 07:30 86 20 99 Mechanical Ventilator 35 01/14/17 07:30 90 20 100 Mechanical Ventilator 35 01/14/17 07:30 35 01/14/17 07:20 88 20 100 Mechanical Ventilator 35 01/14/17 04:58 84 21 35 01/14/17 04:00 91 01/14/17 04:00 98.1 82 18 98/75 98 Mechanical Ventilator 35 01/14/17 04:00 35 01/14/17 03:10 93 22 35 01/14/17 01:19 90 11 35 01/14/17 00:48 Mechanical Ventilator 35 01/14/17 00:48 Mechanical Ventilator 35 01/14/17 00:00 35 01/14/17 00:00 98.2 81 21 107/54 97 Mechanical Ventilator 35 01/14/17 00:00 96 01/13/17 22:47 91 11 98 Mechanical Ventilator 35 01/13/17 22:45 89 11 35 01/13/17 22:40 35 01/13/17 22:40 89 11 98 Mechanical Ventilator 35 01/13/17 21:30 76 16 35 01/13/17 20:00 98.1 79 17 96/60 99 Mechanical Ventilator 35 01/13/17 20:00 99 01/13/17 20:00 35 01/13/17 19:44 88 11 99 Mechanical Ventilator 35 01/13/17 19:36 89 13 100 Mechanical Ventilator 35 01/13/17 19:20 90 17 35 Intake and Output 01/14/17 01/15/17 19:00 07:00 Intake Total 670 ml Balance 670 ml Free Water 200 ml IV Total 110 ml Tube Feeding 360 ml Laboratory Tests 01/13/17 20:30: Stool Occult Blood Negative 01/14/17 00:15: Vancomycin Level Trough 18.4H 01/14/17 03:00: White Blood Count 13.3H, Red Blood Count 3.10L, Hemoglobin 10.3L, Hematocrit 30.0L, Mean Corpuscular Volume 97, Mean Corpuscular Hemoglobin 33.2H, Mean Corpuscular Hemoglobin Concent 34.2, Red Cell Distribution Width 13.2, Platelet Count 362, Mean Platelet Volume 7.8, Neutrophils (%) (Auto) 76.0H, Lymphocytes ( %) (Auto) 9.2L, Monocytes (%) (Auto) 11.8H, Eosinophils (%) (Auto) 1.0, Basophils (%) (Auto) 2.0, Sodium Level 145, Potassium Level 4.0, Chloride Level 112H, Carbon Dioxide Level 25, Anion Gap 8, Blood Urea Nitrogen 16, Creatinine 0.9, Estimat Glomerular Filtration Rate , Glucose Level 124H, Calcium Level 7.9L Height (Feet): 5 Height (Inches): 2.00 Weight (Pounds): 105 General Appearance: no apparent distress EENT: normal ENT inspection Respiratory/Chest: decreased breath sounds Abdomen: non tender, soft Edema: moderate edema ADDIS BLAKE Jan 14, 2017 18:12
[2017-01-14 20:00] VITALS: BP 104/43
--- NOTE | 2017-01-14 20:12 | General Progress Note ---
Assessment/Plan Problem List: (1) GI bleed ICD Codes: K92.2 - Gastrointestinal hemorrhage, unspecified SNOMED: 61789813 (2) Sepsis ICD Codes: A41.9 - Sepsis, unspecified organism SNOMED: 20668018 (3) HCAP (healthcare-associated pneumonia) ICD Codes: J18.9 - Pneumonia, unspecified organism SNOMED: 138086024 (4) UTI (urinary tract infection) ICD Codes: N39.0 - Urinary tract infection, site not specified SNOMED: 56727009 Status: deteriorating Assessment/Plan sepsis no vomit abx per id had fever this am unstable to dc imformed id of fever trach and peg Subjective ROS Limited/Unobtainable: Yes Allergies: Coded Allergies: CODEINE (Unverified Allergy, Unknown, 01/10/17) PENICILLINS (Unverified Allergy, Unknown, 01/10/17) Objective Last 24 Hour Vital Signs Date Time Temp Pulse Resp B/P (MAP) Pulse Ox O2 Delivery O2 Flow Rate FiO2 01/14/17 19:32 86 24 99 Mechanical Ventilator 35 01/14/17 19:22 83 18 35 01/14/17 19:22 83 18 99 Mechanical Ventilator 35 01/14/17 17:38 97 20 35 01/14/17 16:00 91 01/14/17 16:00 35 01/14/17 16:00 98.5 72 20 99/49 100 Mechanical Ventilator 35 01/14/17 15:17 81 16 35 01/14/17 12:45 92 20 100 Mechanical Ventilator 35 01/14/17 12:45 80 21 35 01/14/17 12:30 35 01/14/17 12:30 82 20 100 Mechanical Ventilator 35 01/14/17 12:30 83 20 99 Mechanical Ventilator 35 01/14/17 12:20 86 20 100 Mechanical Ventilator 35 01/14/17 12:00 70 01/14/17 12:00 35 01/14/17 12:00 98.4 80 19 106/50 98 Mechanical Ventilator 35 01/14/17 11:25 67 21 35 01/14/17 09:29 101.2 01/14/17 09:01 83 117/59 01/14/17 08:45 90 18 35 01/14/17 08:00 35 01/14/17 08:00 82 01/14/17 08:00 101.2 83 21 117/59 98 Mechanical Ventilator 35 01/14/17 07:46 90 20 35 01/14/17 07:40 90 20 100 Mechanical Ventilator 35 01/14/17 07:30 86 20 99 Mechanical Ventilator 35 01/14/17 07:30 90 20 100 Mechanical Ventilator 35 01/14/17 07:30 35 01/14/17 07:20 88 20 100 Mechanical Ventilator 35 01/14/17 04:58 84 21 35 01/14/17 04:00 91 01/14/17 04:00 98.1 82 18 98/75 98 Mechanical Ventilator 35 01/14/17 04:00 35 01/14/17 03:10 93 22 35 01/14/17 01:19 90 11 35 01/14/17 00:48 Mechanical Ventilator 35 01/14/17 00:48 Mechanical Ventilator 35 01/14/17 00:00 35 01/14/17 00:00 98.2 81 21 107/54 97 Mechanical Ventilator 35 01/14/17 00:00 96 01/13/17 22:47 91 11 98 Mechanical Ventilator 35 01/13/17 22:45 89 11 35 01/13/17 22:40 35 01/13/17 22:40 89 11 98 Mechanical Ventilator 35 01/13/17 21:30 76 16 35 Intake and Output 01/14/17 01/15/17 19:00 07:00 Intake Total 1010 ml Output Total 2 ml Balance 1008 ml Free Water 300 ml IV Total 110 ml Tube Feeding 600 ml Output Urine Total 2 ml # Bowel Movements 1 Laboratory Tests 01/13/17 20:30: Stool Occult Blood Negative 01/14/17 00:15: Vancomycin Level Trough 18.4H 01/14/17 03:00: White Blood Count 13.3H, Red Blood Count 3.10L, Hemoglobin 10.3L, Hematocrit 30.0L, Mean Corpuscular Volume 97, Mean Corpuscular Hemoglobin 33.2H, Mean Corpuscular Hemoglobin Concent 34.2, Red Cell Distribution Width 13.2, Platelet Count 362, Mean Platelet Volume 7.8, Neutrophils (%) (Auto) 76.0H, Lymphocytes ( %) (Auto) 9.2L, Monocytes (%) (Auto) 11.8H, Eosinophils (%) (Auto) 1.0, Basophils (%) (Auto) 2.0, Sodium Level 145, Potassium Level 4.0, Chloride Level 112H, Carbon Dioxide Level 25, Anion Gap 8, Blood Urea Nitrogen 16, Creatinine 0.9, Estimat Glomerular Filtration Rate , Glucose Level 124H, Calcium Level 7.9L Height (Feet): 5 Height (Inches): 2.00 Weight (Pounds): 105 General Appearance: confused Fernandez Gomez MD Jan 14, 2017 20:12
--- NOTE | 2017-01-14 20:12 | General Progress Note ---
Assessment/Plan Problem List: (1) GI bleed ICD Codes: K92.2 - Gastrointestinal hemorrhage, unspecified SNOMED: 96792420 (2) Sepsis ICD Codes: A41.9 - Sepsis, unspecified organism SNOMED: 47619605 (3) HCAP (healthcare-associated pneumonia) ICD Codes: J18.9 - Pneumonia, unspecified organism SNOMED: 229504753 (4) UTI (urinary tract infection) ICD Codes: N39.0 - Urinary tract infection, site not specified SNOMED: 59126304 Status: deteriorating Assessment/Plan sepsis no vomit abx per id had fever this am unstable to dc imformed id of fever trach and peg Subjective ROS Limited/Unobtainable: Yes Allergies: Coded Allergies: CODEINE (Unverified Allergy, Unknown, 01/10/17) PENICILLINS (Unverified Allergy, Unknown, 01/10/17) Objective Last 24 Hour Vital Signs Date Time Temp Pulse Resp B/P (MAP) Pulse Ox O2 Delivery O2 Flow Rate FiO2 01/14/17 19:32 86 24 99 Mechanical Ventilator 35 01/14/17 19:22 83 18 35 01/14/17 19:22 83 18 99 Mechanical Ventilator 35 01/14/17 17:38 97 20 35 01/14/17 16:00 91 01/14/17 16:00 35 01/14/17 16:00 98.5 72 20 99/49 100 Mechanical Ventilator 35 01/14/17 15:17 81 16 35 01/14/17 12:45 92 20 100 Mechanical Ventilator 35 01/14/17 12:45 80 21 35 01/14/17 12:30 35 01/14/17 12:30 82 20 100 Mechanical Ventilator 35 01/14/17 12:30 83 20 99 Mechanical Ventilator 35 01/14/17 12:20 86 20 100 Mechanical Ventilator 35 01/14/17 12:00 70 01/14/17 12:00 35 01/14/17 12:00 98.4 80 19 106/50 98 Mechanical Ventilator 35 01/14/17 11:25 67 21 35 01/14/17 09:29 101.2 01/14/17 09:01 83 117/59 01/14/17 08:45 90 18 35 01/14/17 08:00 35 01/14/17 08:00 82 01/14/17 08:00 101.2 83 21 117/59 98 Mechanical Ventilator 35 01/14/17 07:46 90 20 35 01/14/17 07:40 90 20 100 Mechanical Ventilator 35 01/14/17 07:30 86 20 99 Mechanical Ventilator 35 01/14/17 07:30 90 20 100 Mechanical Ventilator 35 01/14/17 07:30 35 01/14/17 07:20 88 20 100 Mechanical Ventilator 35 01/14/17 04:58 84 21 35 01/14/17 04:00 91 01/14/17 04:00 98.1 82 18 98/75 98 Mechanical Ventilator 35 01/14/17 04:00 35 01/14/17 03:10 93 22 35 01/14/17 01:19 90 11 35 01/14/17 00:48 Mechanical Ventilator 35 01/14/17 00:48 Mechanical Ventilator 35 01/14/17 00:00 35 01/14/17 00:00 98.2 81 21 107/54 97 Mechanical Ventilator 35 01/14/17 00:00 96 01/13/17 22:47 91 11 98 Mechanical Ventilator 35 01/13/17 22:45 89 11 35 01/13/17 22:40 35 01/13/17 22:40 89 11 98 Mechanical Ventilator 35 01/13/17 21:30 76 16 35 Intake and Output 01/14/17 01/15/17 19:00 07:00 Intake Total 1010 ml Output Total 2 ml Balance 1008 ml Free Water 300 ml IV Total 110 ml Tube Feeding 600 ml Output Urine Total 2 ml # Bowel Movements 1 Laboratory Tests 01/13/17 20:30: Stool Occult Blood Negative 01/14/17 00:15: Vancomycin Level Trough 18.4H 01/14/17 03:00: White Blood Count 13.3H, Red Blood Count 3.10L, Hemoglobin 10.3L, Hematocrit 30.0L, Mean Corpuscular Volume 97, Mean Corpuscular Hemoglobin 33.2H, Mean Corpuscular Hemoglobin Concent 34.2, Red Cell Distribution Width 13.2, Platelet Count 362, Mean Platelet Volume 7.8, Neutrophils (%) (Auto) 76.0H, Lymphocytes ( %) (Auto) 9.2L, Monocytes (%) (Auto) 11.8H, Eosinophils (%) (Auto) 1.0, Basophils (%) (Auto) 2.0, Sodium Level 145, Potassium Level 4.0, Chloride Level 112H, Carbon Dioxide Level 25, Anion Gap 8, Blood Urea Nitrogen 16, Creatinine 0.9, Estimat Glomerular Filtration Rate , Glucose Level 124H, Calcium Level 7.9L Height (Feet): 5 Height (Inches): 2.00 Weight (Pounds): 105 General Appearance: confused Fernandez Gomez MD Jan 14, 2017 20:12
--- NOTE | 2017-01-14 20:12 | General Progress Note ---
Assessment/Plan Problem List: (1) GI bleed ICD Codes: K92.2 - Gastrointestinal hemorrhage, unspecified SNOMED: 25402328 (2) Sepsis ICD Codes: A41.9 - Sepsis, unspecified organism SNOMED: 03367689 (3) HCAP (healthcare-associated pneumonia) ICD Codes: J18.9 - Pneumonia, unspecified organism SNOMED: 757503546 (4) UTI (urinary tract infection) ICD Codes: N39.0 - Urinary tract infection, site not specified SNOMED: 80834289 Status: deteriorating Assessment/Plan sepsis no vomit abx per id had fever this am unstable to dc imformed id of fever trach and peg Subjective ROS Limited/Unobtainable: Yes Allergies: Coded Allergies: CODEINE (Unverified Allergy, Unknown, 01/10/17) PENICILLINS (Unverified Allergy, Unknown, 01/10/17) Objective Last 24 Hour Vital Signs Date Time Temp Pulse Resp B/P (MAP) Pulse Ox O2 Delivery O2 Flow Rate FiO2 01/14/17 19:32 86 24 99 Mechanical Ventilator 35 01/14/17 19:22 83 18 35 01/14/17 19:22 83 18 99 Mechanical Ventilator 35 01/14/17 17:38 97 20 35 01/14/17 16:00 91 01/14/17 16:00 35 01/14/17 16:00 98.5 72 20 99/49 100 Mechanical Ventilator 35 01/14/17 15:17 81 16 35 01/14/17 12:45 92 20 100 Mechanical Ventilator 35 01/14/17 12:45 80 21 35 01/14/17 12:30 35 01/14/17 12:30 82 20 100 Mechanical Ventilator 35 01/14/17 12:30 83 20 99 Mechanical Ventilator 35 01/14/17 12:20 86 20 100 Mechanical Ventilator 35 01/14/17 12:00 70 01/14/17 12:00 35 01/14/17 12:00 98.4 80 19 106/50 98 Mechanical Ventilator 35 01/14/17 11:25 67 21 35 01/14/17 09:29 101.2 01/14/17 09:01 83 117/59 01/14/17 08:45 90 18 35 01/14/17 08:00 35 01/14/17 08:00 82 01/14/17 08:00 101.2 83 21 117/59 98 Mechanical Ventilator 35 01/14/17 07:46 90 20 35 01/14/17 07:40 90 20 100 Mechanical Ventilator 35 01/14/17 07:30 86 20 99 Mechanical Ventilator 35 01/14/17 07:30 90 20 100 Mechanical Ventilator 35 01/14/17 07:30 35 01/14/17 07:20 88 20 100 Mechanical Ventilator 35 01/14/17 04:58 84 21 35 01/14/17 04:00 91 01/14/17 04:00 98.1 82 18 98/75 98 Mechanical Ventilator 35 01/14/17 04:00 35 01/14/17 03:10 93 22 35 01/14/17 01:19 90 11 35 01/14/17 00:48 Mechanical Ventilator 35 01/14/17 00:48 Mechanical Ventilator 35 01/14/17 00:00 35 01/14/17 00:00 98.2 81 21 107/54 97 Mechanical Ventilator 35 01/14/17 00:00 96 01/13/17 22:47 91 11 98 Mechanical Ventilator 35 01/13/17 22:45 89 11 35 01/13/17 22:40 35 01/13/17 22:40 89 11 98 Mechanical Ventilator 35 01/13/17 21:30 76 16 35 Intake and Output 01/14/17 01/15/17 19:00 07:00 Intake Total 1010 ml Output Total 2 ml Balance 1008 ml Free Water 300 ml IV Total 110 ml Tube Feeding 600 ml Output Urine Total 2 ml # Bowel Movements 1 Laboratory Tests 01/13/17 20:30: Stool Occult Blood Negative 01/14/17 00:15: Vancomycin Level Trough 18.4H 01/14/17 03:00: White Blood Count 13.3H, Red Blood Count 3.10L, Hemoglobin 10.3L, Hematocrit 30.0L, Mean Corpuscular Volume 97, Mean Corpuscular Hemoglobin 33.2H, Mean Corpuscular Hemoglobin Concent 34.2, Red Cell Distribution Width 13.2, Platelet Count 362, Mean Platelet Volume 7.8, Neutrophils (%) (Auto) 76.0H, Lymphocytes ( %) (Auto) 9.2L, Monocytes (%) (Auto) 11.8H, Eosinophils (%) (Auto) 1.0, Basophils (%) (Auto) 2.0, Sodium Level 145, Potassium Level 4.0, Chloride Level 112H, Carbon Dioxide Level 25, Anion Gap 8, Blood Urea Nitrogen 16, Creatinine 0.9, Estimat Glomerular Filtration Rate , Glucose Level 124H, Calcium Level 7.9L Height (Feet): 5 Height (Inches): 2.00 Weight (Pounds): 105 General Appearance: confused Fernandez Gomez MD Jan 14, 2017 20:12
[2017-01-14] MEDS: Miralax 17gm pkt ORAL SCH (20:57)
[2017-01-15] VITALS: BP 100/45
[2017-01-15] MEDS: Vancomycin 500mg/D5W 110ml IVPB SCH ×2 (01:00)
[2017-01-15] MEDS: Meropenem 1 GM in NS 110 ML IVPB SCH ×2 (01:55→12:18)
[2017-01-15] MEDS: Albuterol/Ipratropium 3ml neb HHN SCH ×4 (02:07→20:35)
[2017-01-15 04:00] VITALS: BP 142/59
[2017-01-15 04:52] LABS: BASOPHILS % (AUTO) 3.3 % (0.0-2.0); EOSINOPHILS % (AUTO) 1.7 % (0.0-3.0); HEMATOCRIT 31.1 % (37.0-47.0); HEMOGLOBIN 10.5 G/DL (12.0-16.0); LYMPHOCYTES % (AUTO) 11.5 % (20.0-45.0); MEAN CORPUSCULAR VOLUME 99 FL (80-99); MONOCYTES % (AUTO) 11.3 % (1.0-10.0); NEUTROPHILS % (AUTO) 72.2 % (45.0-75.0); PLATELET COUNT 361 K/UL (150-450); RED BLOOD COUNT 3.15 M/UL (4.20-5.40); RED CELL DISTRIBUTION WIDTH 13.7 % (11.6-14.8); WHITE BLOOD COUNT 13.3 K/UL (4.8-10.8)
[2017-01-15 05:15] LABS: ANION GAP 3 mmol/L (5-15); BLOOD UREA NITROGEN 18 mg/dL (7-18); CALCIUM 7.9 MG/DL (8.5-10.1); CARBON DIOXIDE 29 MMOL/L (21-32); CHLORIDE 109 MMOL/L (98-107); CREATININE 0.8 MG/DL (0.55-1.30); PHOSPHORUS 2.6 MG/DL (2.5-4.9); POTASSIUM 3.9 MMOL/L (3.5-5.1); SODIUM 141 MMOL/L (136-145)
[2017-01-15 08:00] VITALS: BP 131/75
--- NOTE | 2017-01-15 08:35 | Diagnostic Imaging Report ---
Clinical Indication: Chest pain, shortness of breath Technique: Spiral acquisitions obtained through the chest. No IV contrast utilized, per referring physician request. Multiplanar reconstructions generated. Total dose length product 416 mGycm. CTDIvol(s) 15 mGy. Dose reduction achieved using automated exposure control Comparison: Chest radiograph of earlier the same day Findings:There is a large right pleural effusion, occupies approximately 50% of the right hemithorax. Smaller but still sizable pleural effusion also seen on the left. There is resultant atelectasis of much of both lower lobes. There is also some atelectasis of the posterior right middle lobe and posterior lingula. Some hazy groundglass opacity is seen in the inferior right upper lobe. No definite interstitial congestion. No evidence consolidation. There is an irregular opacity in the upper lingula, image 20 series 5, which measures approximately 6 mm in diameter. There is an irregular opacity in the right upper lobe, image 11 series 5, which measures 7 mm in diameter. The heart size is upper limits of normal. There is a small anterior wall pericardial effusion. There is a tracheostomy. There is a prominent paratracheal node which measures up to 12 mm in diameter, but no elie lymphadenopathy demonstrated. The thyroid is not well visualized, grossly unremarkable. There is edema of the posterior thoracic and bilateral upper flank subcutaneous fat. No axillary or chest wall mass or adenopathy. There is a sliding-type hiatal hernia which is moderate in size. There is smooth thoracic kyphosis without focal compression abnormality. The bones are otherwise unremarkable. The included upper abdominal anatomy is remarkable for the presence of cholecystectomy clips. 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 There is a gastrostomy Impression: Massive right and large left pleural effusions. Resultant compressive atelectasis of much of both lower lobes, portions of the right middle lobe and left lingula Bilateral upper lobe irregular 7 mm opacities, most likely areas of atelectasis, scarring, or patchy consolidation, but mass lesions are not excludable. Short interval followup chest CT in 6 months should be considered. Nonspecific hazy groundglass opacity in the inferior right upper lobe, may reflect compressive atelectatic change or edema Tracheostomy Hiatal hernia Small anterior wall pericardial effusion. Edema of the bilateral upper flank and posterior thoracic subcutaneous fat Other findings as noted, including bilateral adrenal hypertrophy, gastrostomy, cholecystectomy, kyphosis The CT scanner at [facility] is accredited by the [employer] and the scans are performed using protocols designed to limit radiation exposure to as low as reasonably achievable to attain images of sufficient resolution adequate for diagnostic evaluation.
[2017-01-15] MEDS: Docusate 100mg/10ml Liq NG SCH (09:00)
[2017-01-15] MEDS: Ascorbic Acid 500mg tab GT SCH (09:00)
[2017-01-15] MEDS: Memantine 10mg tab GT SCH (09:00)
[2017-01-15] MEDS: Valproic Acid 250mg/5ml Liquid NG SCH ×2 (09:00→20:28)
[2017-01-15] MEDS: Pantoprazole Inj IVP SCH ×2 (09:01→20:29)
--- NOTE | 2017-01-15 10:49 | GI Progress Note ---
Assessment/Plan Problems: (1) Anemia due to acute blood loss ICD Codes: D62 - Acute posthemorrhagic anemia SNOMED: 337477025 (2) GI bleed ICD Codes: K92.2 - Gastrointestinal hemorrhage, unspecified SNOMED: 69255313 (3) Severe sepsis ICD Codes: A41.9 - Sepsis, unspecified organism; R65.20 - Severe sepsis without septic shock SNOMED: 43772019 (4) Tracheostomy dependence ICD Codes: Z93.0 - Tracheostomy status SNOMED: 559700630, 423961799 Status: stable, unchanged Status Narrative Discussed with Dr. Amor. Assessment/Plan s/p EGD SUMMARY FINDINGS: 1. Minimum distal esophagitis. 2. Distal esophageal ring. 3. Gastritis. 4. Gastric polyps. OB stool negative RECOMMENDATIONS: fu biopsy and treat ppi BID elevate HOB GT site care/flush prn monitor H&H, prn transfusion consider colonoscopy if needed fu labs The patient was seen and examined at bedside and all new and available data was reviewed in the patients chart. I agree with the above findings, impression and plan. (Patient seen earlier today. Signature stamp does not reflect patient encounter time.). - Theodora Amor MD Subjective Subjective limited Objective Last 24 Hour Vital Signs Date Time Temp Pulse Resp B/P (MAP) Pulse Ox O2 Delivery O2 Flow Rate FiO2 01/15/17 09:14 86 21 35 01/15/17 09:00 90 131/75 01/15/17 08:00 98.1 90 20 131/75 99 Mechanical Ventilator 35 01/15/17 08:00 35 01/15/17 08:00 78 01/15/17 07:26 93 16 100 Mechanical Ventilator 35 01/15/17 07:14 77 15 98 Mechanical Ventilator 15.0 35 01/15/17 07:06 79 16 35 01/15/17 05:00 83 17 35 01/15/17 04:00 98.2 86 25 142/59 95 Mechanical Ventilator 35 01/15/17 04:00 35 01/15/17 04:00 89 01/15/17 03:30 78 14 35 01/15/17 02:20 89 12 100 Mechanical Ventilator 35 01/15/17 02:05 87 22 99 Mechanical Ventilator 35 01/15/17 02:05 87 22 35 01/15/17 00:00 35 01/15/17 00:00 98.4 82 14 100/45 99 Mechanical Ventilator 35 01/14/17 23:04 75 12 35 01/14/17 21:06 88 18 35 01/14/17 20:22 89 01/14/17 20:00 99.1 87 20 104/43 99 Mechanical Ventilator 35 01/14/17 20:00 35 01/14/17 19:32 86 24 99 Mechanical Ventilator 35 01/14/17 19:22 83 18 35 01/14/17 19:22 83 18 99 Mechanical Ventilator 35 01/14/17 17:38 97 20 35 01/14/17 16:00 91 01/14/17 16:00 35 01/14/17 16:00 98.5 72 20 99/49 100 Mechanical Ventilator 35 01/14/17 15:17 81 16 35 01/14/17 12:45 92 20 100 Mechanical Ventilator 35 01/14/17 12:45 80 21 35 01/14/17 12:30 35 01/14/17 12:30 82 20 100 Mechanical Ventilator 35 01/14/17 12:30 83 20 99 Mechanical Ventilator 35 01/14/17 12:20 86 20 100 Mechanical Ventilator 35 01/14/17 12:00 70 01/14/17 12:00 35 01/14/17 12:00 98.4 80 19 106/50 98 Mechanical Ventilator 35 01/14/17 11:25 67 21 35 Intake and Output 01/15/17 01/16/17 19:00 07:00 Intake Total 100 ml Balance 100 ml IV Total 100 ml # Bowel Movements 1 Laboratory Tests Test 01/15/17 03:10 White Blood Count 13.3 K/UL (4.8-10.8) H Red Blood Count 3.15 M/UL (4.20-5.40) L Hemoglobin 10.5 G/DL (12.0-16.0) L Hematocrit 31.1 % (37.0-47.0) L Mean Corpuscular Volume 99 FL (80-99) Mean Corpuscular Hemoglobin 33.3 PG (27.0-31.0) H Mean Corpuscular Hemoglobin Concent 33.7 G/DL (32.0-36.0) Red Cell Distribution Width 13.7 % (11.6-14.8) Platelet Count 361 K/UL (150-450) Mean Platelet Volume 7.8 FL (6.5-10.1) Neutrophils (%) (Auto) 72.2 % (45.0-75.0) Lymphocytes (%) (Auto) 11.5 % (20.0-45.0) L Monocytes (%) (Auto) 11.3 % (1.0-10.0) H Eosinophils (%) (Auto) 1.7 % (0.0-3.0) Basophils (%) (Auto) 3.3 % (0.0-2.0) H Sodium Level 141 MMOL/L (136-145) Potassium Level 3.9 MMOL/L (3.5-5.1) Chloride Level 109 MMOL/L (98-107) H Carbon Dioxide Level 29 MMOL/L (21-32) Anion Gap 3 mmol/L (5-15) L Blood Urea Nitrogen 18 mg/dL (7-18) Creatinine 0.8 MG/DL (0.55-1.30) Estimat Glomerular Filtration Rate mL/min (>60) Glucose Level 135 MG/DL (74-106) H Calcium Level 7.9 MG/DL (8.5-10.1) L Phosphorus Level 2.6 MG/DL (2.5-4.9) Magnesium Level 1.5 MG/DL (1.8-2.4) L Height (Feet): 5 Height (Inches): 2.00 Weight (Pounds): 105 General Appearance: alert Cardiovascular: normal rate Respiratory/Chest: other - mech vent Abdominal Exam: GT site - c/d/i Rosibel Newton N.P. Jan 15, 2017 10:49 MICHELLE AMOR Jan 16, 2017 09:37
--- NOTE | 2017-01-15 10:49 | GI Progress Note ---
Assessment/Plan Problems: (1) Anemia due to acute blood loss ICD Codes: D62 - Acute posthemorrhagic anemia SNOMED: 872241518 (2) GI bleed ICD Codes: K92.2 - Gastrointestinal hemorrhage, unspecified SNOMED: 37540932 (3) Severe sepsis ICD Codes: A41.9 - Sepsis, unspecified organism; R65.20 - Severe sepsis without septic shock SNOMED: 44771608 (4) Tracheostomy dependence ICD Codes: Z93.0 - Tracheostomy status SNOMED: 649396127, 091628219 Status: stable, unchanged Status Narrative Discussed with Dr. Amor. Assessment/Plan s/p EGD SUMMARY FINDINGS: 1. Minimum distal esophagitis. 2. Distal esophageal ring. 3. Gastritis. 4. Gastric polyps. OB stool negative RECOMMENDATIONS: fu biopsy and treat ppi BID elevate HOB GT site care/flush prn monitor H&H, prn transfusion consider colonoscopy if needed fu labs The patient was seen and examined at bedside and all new and available data was reviewed in the patients chart. I agree with the above findings, impression and plan. (Patient seen earlier today. Signature stamp does not reflect patient encounter time.). - Theodora Amor MD Subjective Subjective limited Objective Last 24 Hour Vital Signs Date Time Temp Pulse Resp B/P (MAP) Pulse Ox O2 Delivery O2 Flow Rate FiO2 01/15/17 09:14 86 21 35 01/15/17 09:00 90 131/75 01/15/17 08:00 98.1 90 20 131/75 99 Mechanical Ventilator 35 01/15/17 08:00 35 01/15/17 08:00 78 01/15/17 07:26 93 16 100 Mechanical Ventilator 35 01/15/17 07:14 77 15 98 Mechanical Ventilator 15.0 35 01/15/17 07:06 79 16 35 01/15/17 05:00 83 17 35 01/15/17 04:00 98.2 86 25 142/59 95 Mechanical Ventilator 35 01/15/17 04:00 35 01/15/17 04:00 89 01/15/17 03:30 78 14 35 01/15/17 02:20 89 12 100 Mechanical Ventilator 35 01/15/17 02:05 87 22 99 Mechanical Ventilator 35 01/15/17 02:05 87 22 35 01/15/17 00:00 35 01/15/17 00:00 98.4 82 14 100/45 99 Mechanical Ventilator 35 01/14/17 23:04 75 12 35 01/14/17 21:06 88 18 35 01/14/17 20:22 89 01/14/17 20:00 99.1 87 20 104/43 99 Mechanical Ventilator 35 01/14/17 20:00 35 01/14/17 19:32 86 24 99 Mechanical Ventilator 35 01/14/17 19:22 83 18 35 01/14/17 19:22 83 18 99 Mechanical Ventilator 35 01/14/17 17:38 97 20 35 01/14/17 16:00 91 01/14/17 16:00 35 01/14/17 16:00 98.5 72 20 99/49 100 Mechanical Ventilator 35 01/14/17 15:17 81 16 35 01/14/17 12:45 92 20 100 Mechanical Ventilator 35 01/14/17 12:45 80 21 35 01/14/17 12:30 35 01/14/17 12:30 82 20 100 Mechanical Ventilator 35 01/14/17 12:30 83 20 99 Mechanical Ventilator 35 01/14/17 12:20 86 20 100 Mechanical Ventilator 35 01/14/17 12:00 70 01/14/17 12:00 35 01/14/17 12:00 98.4 80 19 106/50 98 Mechanical Ventilator 35 01/14/17 11:25 67 21 35 Intake and Output 01/15/17 01/16/17 19:00 07:00 Intake Total 100 ml Balance 100 ml IV Total 100 ml # Bowel Movements 1 Laboratory Tests Test 01/15/17 03:10 White Blood Count 13.3 K/UL (4.8-10.8) H Red Blood Count 3.15 M/UL (4.20-5.40) L Hemoglobin 10.5 G/DL (12.0-16.0) L Hematocrit 31.1 % (37.0-47.0) L Mean Corpuscular Volume 99 FL (80-99) Mean Corpuscular Hemoglobin 33.3 PG (27.0-31.0) H Mean Corpuscular Hemoglobin Concent 33.7 G/DL (32.0-36.0) Red Cell Distribution Width 13.7 % (11.6-14.8) Platelet Count 361 K/UL (150-450) Mean Platelet Volume 7.8 FL (6.5-10.1) Neutrophils (%) (Auto) 72.2 % (45.0-75.0) Lymphocytes (%) (Auto) 11.5 % (20.0-45.0) L Monocytes (%) (Auto) 11.3 % (1.0-10.0) H Eosinophils (%) (Auto) 1.7 % (0.0-3.0) Basophils (%) (Auto) 3.3 % (0.0-2.0) H Sodium Level 141 MMOL/L (136-145) Potassium Level 3.9 MMOL/L (3.5-5.1) Chloride Level 109 MMOL/L (98-107) H Carbon Dioxide Level 29 MMOL/L (21-32) Anion Gap 3 mmol/L (5-15) L Blood Urea Nitrogen 18 mg/dL (7-18) Creatinine 0.8 MG/DL (0.55-1.30) Estimat Glomerular Filtration Rate mL/min (>60) Glucose Level 135 MG/DL (74-106) H Calcium Level 7.9 MG/DL (8.5-10.1) L Phosphorus Level 2.6 MG/DL (2.5-4.9) Magnesium Level 1.5 MG/DL (1.8-2.4) L Height (Feet): 5 Height (Inches): 2.00 Weight (Pounds): 105 General Appearance: alert Cardiovascular: normal rate Respiratory/Chest: other - mech vent Abdominal Exam: GT site - c/d/i Rosibel Newton N.P. Jan 15, 2017 10:49 MICHELLE AMOR Jan 16, 2017 09:37
--- NOTE | 2017-01-15 10:49 | GI Progress Note ---
Assessment/Plan Problems: (1) Anemia due to acute blood loss ICD Codes: D62 - Acute posthemorrhagic anemia SNOMED: 690834510 (2) GI bleed ICD Codes: K92.2 - Gastrointestinal hemorrhage, unspecified SNOMED: 49791599 (3) Severe sepsis ICD Codes: A41.9 - Sepsis, unspecified organism; R65.20 - Severe sepsis without septic shock SNOMED: 81153597 (4) Tracheostomy dependence ICD Codes: Z93.0 - Tracheostomy status SNOMED: 101834197, 026219108 Status: stable, unchanged Status Narrative Discussed with Dr. Amor. Assessment/Plan s/p EGD SUMMARY FINDINGS: 1. Minimum distal esophagitis. 2. Distal esophageal ring. 3. Gastritis. 4. Gastric polyps. OB stool negative RECOMMENDATIONS: fu biopsy and treat ppi BID elevate HOB GT site care/flush prn monitor H&H, prn transfusion consider colonoscopy if needed fu labs The patient was seen and examined at bedside and all new and available data was reviewed in the patients chart. I agree with the above findings, impression and plan. (Patient seen earlier today. Signature stamp does not reflect patient encounter time.). - Theodora Amor MD Subjective Subjective limited Objective Last 24 Hour Vital Signs Date Time Temp Pulse Resp B/P (MAP) Pulse Ox O2 Delivery O2 Flow Rate FiO2 01/15/17 09:14 86 21 35 01/15/17 09:00 90 131/75 01/15/17 08:00 98.1 90 20 131/75 99 Mechanical Ventilator 35 01/15/17 08:00 35 01/15/17 08:00 78 01/15/17 07:26 93 16 100 Mechanical Ventilator 35 01/15/17 07:14 77 15 98 Mechanical Ventilator 15.0 35 01/15/17 07:06 79 16 35 01/15/17 05:00 83 17 35 01/15/17 04:00 98.2 86 25 142/59 95 Mechanical Ventilator 35 01/15/17 04:00 35 01/15/17 04:00 89 01/15/17 03:30 78 14 35 01/15/17 02:20 89 12 100 Mechanical Ventilator 35 01/15/17 02:05 87 22 99 Mechanical Ventilator 35 01/15/17 02:05 87 22 35 01/15/17 00:00 35 01/15/17 00:00 98.4 82 14 100/45 99 Mechanical Ventilator 35 01/14/17 23:04 75 12 35 01/14/17 21:06 88 18 35 01/14/17 20:22 89 01/14/17 20:00 99.1 87 20 104/43 99 Mechanical Ventilator 35 01/14/17 20:00 35 01/14/17 19:32 86 24 99 Mechanical Ventilator 35 01/14/17 19:22 83 18 35 01/14/17 19:22 83 18 99 Mechanical Ventilator 35 01/14/17 17:38 97 20 35 01/14/17 16:00 91 01/14/17 16:00 35 01/14/17 16:00 98.5 72 20 99/49 100 Mechanical Ventilator 35 01/14/17 15:17 81 16 35 01/14/17 12:45 92 20 100 Mechanical Ventilator 35 01/14/17 12:45 80 21 35 01/14/17 12:30 35 01/14/17 12:30 82 20 100 Mechanical Ventilator 35 01/14/17 12:30 83 20 99 Mechanical Ventilator 35 01/14/17 12:20 86 20 100 Mechanical Ventilator 35 01/14/17 12:00 70 01/14/17 12:00 35 01/14/17 12:00 98.4 80 19 106/50 98 Mechanical Ventilator 35 01/14/17 11:25 67 21 35 Intake and Output 01/15/17 01/16/17 19:00 07:00 Intake Total 100 ml Balance 100 ml IV Total 100 ml # Bowel Movements 1 Laboratory Tests Test 01/15/17 03:10 White Blood Count 13.3 K/UL (4.8-10.8) H Red Blood Count 3.15 M/UL (4.20-5.40) L Hemoglobin 10.5 G/DL (12.0-16.0) L Hematocrit 31.1 % (37.0-47.0) L Mean Corpuscular Volume 99 FL (80-99) Mean Corpuscular Hemoglobin 33.3 PG (27.0-31.0) H Mean Corpuscular Hemoglobin Concent 33.7 G/DL (32.0-36.0) Red Cell Distribution Width 13.7 % (11.6-14.8) Platelet Count 361 K/UL (150-450) Mean Platelet Volume 7.8 FL (6.5-10.1) Neutrophils (%) (Auto) 72.2 % (45.0-75.0) Lymphocytes (%) (Auto) 11.5 % (20.0-45.0) L Monocytes (%) (Auto) 11.3 % (1.0-10.0) H Eosinophils (%) (Auto) 1.7 % (0.0-3.0) Basophils (%) (Auto) 3.3 % (0.0-2.0) H Sodium Level 141 MMOL/L (136-145) Potassium Level 3.9 MMOL/L (3.5-5.1) Chloride Level 109 MMOL/L (98-107) H Carbon Dioxide Level 29 MMOL/L (21-32) Anion Gap 3 mmol/L (5-15) L Blood Urea Nitrogen 18 mg/dL (7-18) Creatinine 0.8 MG/DL (0.55-1.30) Estimat Glomerular Filtration Rate mL/min (>60) Glucose Level 135 MG/DL (74-106) H Calcium Level 7.9 MG/DL (8.5-10.1) L Phosphorus Level 2.6 MG/DL (2.5-4.9) Magnesium Level 1.5 MG/DL (1.8-2.4) L Height (Feet): 5 Height (Inches): 2.00 Weight (Pounds): 105 General Appearance: alert Cardiovascular: normal rate Respiratory/Chest: other - mech vent Abdominal Exam: GT site - c/d/i Rosibel Newton N.P. Jan 15, 2017 10:49 MICHELLE AMOR Jan 16, 2017 09:37
[2017-01-15 12:00] VITALS: BP 116/56
[2017-01-15] MEDS: Acetaminophen 650mg/20.3ml ORAL PRN (12:49)
--- NOTE | 2017-01-15 15:37 | Infectious Diseases Prog Note ---
Assessment/Plan Problems: (1) HCAP (healthcare-associated pneumonia) Assessment & Plan: due to MRSA and haemophilus influenza with bilateral basal consolidation complicated with parapneumonia effusion , rule out empyema , recommend thoracentesis and fluids to be sent for gram stain, culture, fungal, AFB, and adenosis deaminase, continue vancomycin , and switch meropenem to cefepime , and monitor temperature (2) UTI (urinary tract infection) Assessment & Plan: with santhosh, less than 10 0000 colony, most likely colonization, recommend to change travis catheter , no need for antifungal (3) Sepsis Assessment & Plan: due to the above, with negative blood culture, continue wide spectrum antibiotics (4) GI bleed Assessment & Plan: monitor H/H, transfuse as needed , GI is following (5) COPD exacerbation Assessment & Plan: continue nebulizer therapy, monitor CXR (6) Open nasal wound Assessment & Plan: not deep to the nasal cavity with no necrosis , no evidenc of fungal growth , and she had previously candiduria at [facility], culture here showed candda again, most likely colonizer (7) Sacral wound Assessment & Plan: continue local wound care and off loading , consult wound care (8) Recurrent fever Assessment & Plan: rule out empyema , or atypical infection such as TB , will screen with gold test Subjective Allergies: Coded Allergies: CODEINE (Unverified Allergy, Unknown, 01/10/17) PENICILLINS (Unverified Allergy, Unknown, 01/10/17) Subjective she is lying in bed, alert, on mechanical ventilation through her trach, had low grade fever , open eyes spontaneously not in distress Objective Vital Signs Last 24 Hour Vital Signs Date Time Temp Pulse Resp B/P (MAP) Pulse Ox O2 Delivery O2 Flow Rate FiO2 01/15/17 15:17 92 18 35 01/15/17 13:19 99.7 01/15/17 13:06 90 16 100 Mechanical Ventilator 35 01/15/17 12:54 95 16 99 Mechanical Ventilator 15.0 35 01/15/17 12:53 90 16 35 01/15/17 12:00 71 01/15/17 12:00 99.1 93 20 116/56 96 Mechanical Ventilator 35 01/15/17 12:00 35 01/15/17 11:36 82 18 35 01/15/17 09:14 86 21 35 01/15/17 09:00 90 131/75 01/15/17 08:00 98.1 90 20 131/75 99 Mechanical Ventilator 35 01/15/17 08:00 35 01/15/17 08:00 78 01/15/17 07:26 93 16 100 Mechanical Ventilator 35 01/15/17 07:14 77 15 98 Mechanical Ventilator 15.0 35 01/15/17 07:06 79 16 35 01/15/17 05:00 83 17 35 01/15/17 04:00 98.2 86 25 142/59 95 Mechanical Ventilator 35 01/15/17 04:00 35 01/15/17 04:00 89 01/15/17 03:30 78 14 35 01/15/17 02:20 89 12 100 Mechanical Ventilator 35 01/15/17 02:05 87 22 99 Mechanical Ventilator 35 01/15/17 02:05 87 22 35 01/15/17 00:00 35 01/15/17 00:00 98.4 82 14 100/45 99 Mechanical Ventilator 35 01/14/17 23:04 75 12 35 01/14/17 21:06 88 18 35 01/14/17 20:22 89 01/14/17 20:00 99.1 87 20 104/43 99 Mechanical Ventilator 35 01/14/17 20:00 35 01/14/17 19:32 86 24 99 Mechanical Ventilator 35 01/14/17 19:22 83 18 35 01/14/17 19:22 83 18 99 Mechanical Ventilator 35 01/14/17 17:38 97 20 35 01/14/17 16:00 91 01/14/17 16:00 35 01/14/17 16:00 98.5 72 20 99/49 100 Mechanical Ventilator 35 Height (Feet): 5 Height (Inches): 2.00 Weight (Pounds): 105 General Appearance: WD/WN, no acute distress HEENT: normocephalic, atraumatic, anicteric, mucous membranes moist, EOMI, pharynx normal, supple, no JVD Respiratory/Chest: chest wall non-tender, lungs clear, normal breath sounds, no respiratory distress, no accessory muscle use Cardiovascular: normal peripheral pulses, normal rate, regular rhythm, no gallop/murmur, no JVD Abdomen: normal bowel sounds, soft, non tender, no organomegaly, non distended , no mass, no scars Extremities: no cyanosis, no clubbing Skin: no rash, no lesions, no ulcers Neurologic/Psychiatric: alert Laboratory Tests Test 01/15/17 03:10 White Blood Count 13.3 K/UL (4.8-10.8) H Red Blood Count 3.15 M/UL (4.20-5.40) L Hemoglobin 10.5 G/DL (12.0-16.0) L Hematocrit 31.1 % (37.0-47.0) L Mean Corpuscular Volume 99 FL (80-99) Mean Corpuscular Hemoglobin 33.3 PG (27.0-31.0) H Mean Corpuscular Hemoglobin Concent 33.7 G/DL (32.0-36.0) Red Cell Distribution Width 13.7 % (11.6-14.8) Platelet Count 361 K/UL (150-450) Mean Platelet Volume 7.8 FL (6.5-10.1) Neutrophils (%) (Auto) 72.2 % (45.0-75.0) Lymphocytes (%) (Auto) 11.5 % (20.0-45.0) L Monocytes (%) (Auto) 11.3 % (1.0-10.0) H Eosinophils (%) (Auto) 1.7 % (0.0-3.0) Basophils (%) (Auto) 3.3 % (0.0-2.0) H Sodium Level 141 MMOL/L (136-145) Potassium Level 3.9 MMOL/L (3.5-5.1) Chloride Level 109 MMOL/L (98-107) H Carbon Dioxide Level 29 MMOL/L (21-32) Anion Gap 3 mmol/L (5-15) L Blood Urea Nitrogen 18 mg/dL (7-18) Creatinine 0.8 MG/DL (0.55-1.30) Estimat Glomerular Filtration Rate mL/min (>60) Glucose Level 135 MG/DL (74-106) H Calcium Level 7.9 MG/DL (8.5-10.1) L Phosphorus Level 2.6 MG/DL (2.5-4.9) Magnesium Level 1.5 MG/DL (1.8-2.4) L Current Medications Medications (Trade) Dose Ordered Sig/Sky Route PRN Reason Start Time Stop Time Status Last Admin Dose Admin Acetaminophen (Tylenol) 650 mg Q6H PRN ORAL Mild Pain/Temp > 100.5 01/10/17 18:00 02/09/17 17:59 01/15/17 12:49 Acetylcysteine (Mucomyst) 400 mg Q6HRT IN-LINE 01/15/17 01:00 02/14/17 00:59 01/15/17 12:54 Albuterol/ Ipratropium (Albuterol/ Ipratropium) 3 ml Q6HRT HHN 01/11/17 13:00 01/16/17 12:59 01/15/17 12:54 Amlodipine Besylate (Norvasc) 2.5 mg DAILY GT 01/11/17 09:00 02/10/17 08:59 01/15/17 09:00 Ascorbic Acid (Vitamin C) 500 mg DAILY GT 01/11/17 09:00 02/10/17 08:59 01/15/17 09:00 Dextrose (Dextrose 50%) STAT PRN IV Hypoglycemia 01/10/17 14:45 02/09/17 14:44 Docusate Sodium (Colace) 250 mg DAILY NG 01/11/17 09:00 02/10/17 08:59 01/14/17 09:00 Memantine (Namenda) 10 mg DAILY GT 01/11/17 09:00 02/10/17 08:59 01/15/17 09:00 Meropenem 1 gm/ Sodium Chloride 110 ml @ 220 mls/hr Q12HR@0100,1300 IVPB 01/10/17 13:30 01/19/17 13:29 01/15/17 12:18 Ondansetron HCl (Zofran) 4 mg Q6H PRN IVP Nausea & Vomiting 01/10/17 14:45 02/09/17 14:44 Pantoprazole (Protonix) 40 mg EVERY 12 HOURS IVP 01/11/17 09:00 02/10/17 08:59 01/15/17 09:01 Polyethylene Glycol (Miralax) 17 gm BEDTIME ORAL 01/13/17 21:00 02/12/17 20:59 Risperidone (RisperDAL) 1 mg QHS GT 01/10/17 21:00 02/09/17 20:59 01/14/17 20:55 Valproic Acid (Depakene) 250 mg EVERY 12 HOURS NG 01/10/17 21:00 02/09/17 20:59 01/15/17 09:00 Vancomycin HCl (Vanco rx to dose) 1 ea DAILY PRN MISC Per rx protocol 01/10/17 12:15 02/09/17 12:14 Vancomycin HCl 500 mg/Dextrose 110 ml @ 110 mls/hr Q24H IVPB 01/15/17 00:00 01/19/17 23:59 01/15/17 01:00 Shankar Qiu M.D. Jan 15, 2017 15:37
[2017-01-15 16:00] VITALS: BP 101/45
--- NOTE | 2017-01-15 17:01 | Pulmonology Progress Note ---
Assessment/Plan Assessment/Plan 1. Ventilator-dependent respiratory failure. 2. Chronic pneumonia, possible underlying congestive heart failure. 3. Urinary tract infection. 4. Sepsis. 5. Hypertension. 6. Diabetes. 7. Large bilateral effusions on CT thoracentesis CT w infiltrates and effusions cont vent support abx per ID disc w RN, ID Subjective ROS Limited/Unobtainable: Yes Allergies: Coded Allergies: CODEINE (Unverified Allergy, Unknown, 01/10/17) PENICILLINS (Unverified Allergy, Unknown, 01/10/17) Objective Last 24 Hour Vital Signs Date Time Temp Pulse Resp B/P (MAP) Pulse Ox O2 Delivery O2 Flow Rate FiO2 01/15/17 16:00 35 01/15/17 16:00 97.7 89 20 101/45 99 Mechanical Ventilator 35 01/15/17 16:00 101 01/15/17 15:17 92 18 35 01/15/17 13:19 99.7 01/15/17 13:06 90 16 100 Mechanical Ventilator 35 01/15/17 12:54 95 16 99 Mechanical Ventilator 15.0 35 01/15/17 12:53 90 16 35 01/15/17 12:00 71 01/15/17 12:00 99.1 93 20 116/56 96 Mechanical Ventilator 35 01/15/17 12:00 35 01/15/17 11:36 82 18 35 01/15/17 09:14 86 21 35 01/15/17 09:00 90 131/75 01/15/17 08:00 98.1 90 20 131/75 99 Mechanical Ventilator 35 01/15/17 08:00 35 01/15/17 08:00 78 01/15/17 07:26 93 16 100 Mechanical Ventilator 35 01/15/17 07:14 77 15 98 Mechanical Ventilator 15.0 35 01/15/17 07:06 79 16 35 01/15/17 05:00 83 17 35 01/15/17 04:00 98.2 86 25 142/59 95 Mechanical Ventilator 35 01/15/17 04:00 35 01/15/17 04:00 89 01/15/17 03:30 78 14 35 01/15/17 02:20 89 12 100 Mechanical Ventilator 35 01/15/17 02:05 87 22 99 Mechanical Ventilator 35 01/15/17 02:05 87 22 35 01/15/17 00:00 35 01/15/17 00:00 98.4 82 14 100/45 99 Mechanical Ventilator 35 01/14/17 23:04 75 12 35 01/14/17 21:06 88 18 35 01/14/17 20:22 89 01/14/17 20:00 99.1 87 20 104/43 99 Mechanical Ventilator 35 01/14/17 20:00 35 01/14/17 19:32 86 24 99 Mechanical Ventilator 35 01/14/17 19:22 83 18 35 01/14/17 19:22 83 18 99 Mechanical Ventilator 35 01/14/17 17:38 97 20 35 Intake and Output 01/15/17 01/16/17 19:00 07:00 Intake Total 100 ml Balance 100 ml IV Total 100 ml # Bowel Movements 3 Objective trach/vent G tube HEENT: normocephalic Respiratory/Chest: decreased breath sounds Cardiovascular: normal rate, regular rhythm Laboratory Tests 01/15/17 03:10: White Blood Count 13.3H, Red Blood Count 3.15L, Hemoglobin 10.5L, Hematocrit 31.1L, Mean Corpuscular Volume 99, Mean Corpuscular Hemoglobin 33.3H, Mean Corpuscular Hemoglobin Concent 33.7, Red Cell Distribution Width 13.7, Platelet Count 361, Mean Platelet Volume 7.8, Neutrophils (%) (Auto) 72.2, Lymphocytes (% ) (Auto) 11.5L, Monocytes (%) (Auto) 11.3H, Eosinophils (%) (Auto) 1.7, Basophils (%) (Auto) 3.3H, Sodium Level 141, Potassium Level 3.9, Chloride Level 109H, Carbon Dioxide Level 29, Anion Gap 3L, Blood Urea Nitrogen 18, Creatinine 0.8, Estimat Glomerular Filtration Rate , Glucose Level 135H, Calcium Level 7.9L, Phosphorus Level 2.6, Magnesium Level 1.5L Current Medications Medications (Trade) Dose Ordered Sig/Sky Route PRN Reason Start Time Stop Time Status Last Admin Dose Admin Acetaminophen (Tylenol) 650 mg Q6H PRN ORAL Mild Pain/Temp > 100.5 01/10/17 18:00 02/09/17 17:59 01/15/17 12:49 Acetylcysteine (Mucomyst) 400 mg Q6HRT IN-LINE 01/15/17 01:00 02/14/17 00:59 11/2/17 12:54 Albuterol/ Ipratropium (Albuterol/ Ipratropium) 3 ml Q6HRT HHN 01/11/17 13:00 01/16/17 12:59 01/15/17 12:54 Amlodipine Besylate (Norvasc) 2.5 mg DAILY GT 01/11/17 09:00 02/10/17 08:59 01/15/17 09:00 Ascorbic Acid (Vitamin C) 500 mg DAILY GT 01/11/17 09:00 02/10/17 08:59 01/15/17 09:00 Cefepime HCl 2 gm/ Dextrose 110 ml @ 220 mls/hr Q24H IVPB 01/15/17 17:00 01/22/17 16:59 Dextrose (Dextrose 50%) STAT PRN IV Hypoglycemia 01/10/17 14:45 02/09/17 14:44 Docusate Sodium (Colace) 250 mg DAILY NG 01/11/17 09:00 02/10/17 08:59 01/14/17 09:00 Memantine (Namenda) 10 mg DAILY GT 01/11/17 09:00 02/10/17 08:59 01/15/17 09:00 Ondansetron HCl (Zofran) 4 mg Q6H PRN IVP Nausea & Vomiting 01/10/17 14:45 02/09/17 14:44 Pantoprazole (Protonix) 40 mg EVERY 12 HOURS IVP 01/11/17 09:00 02/10/17 08:59 01/15/17 09:01 Polyethylene Glycol (Miralax) 17 gm BEDTIME ORAL 01/13/17 21:00 02/12/17 20:59 Risperidone (RisperDAL) 1 mg QHS GT 01/10/17 21:00 02/09/17 20:59 01/14/17 20:55 Valproic Acid (Depakene) 125 mg EVERY 12 HOURS NG 01/15/17 21:00 02/14/17 20:59 Vancomycin HCl (Vanco rx to dose) 1 ea DAILY PRN MISC Per rx protocol 01/10/17 12:15 02/09/17 12:14 Vancomycin HCl 500 mg/Dextrose 110 ml @ 110 mls/hr Q24H IVPB 01/15/17 00:00 01/19/17 23:59 01/15/17 01:00 MELANIE ENGLISH Jan 15, 2017 17:01
[2017-01-15] MEDS: Cefepime HCl 2 GM in D5W 110 ML IVPB SCH (17:30)
[2017-01-15 20:00] VITALS: BP 129/59
[2017-01-15] MEDS: Miralax 17gm pkt ORAL SCH (20:28)
--- NOTE | 2017-01-15 21:09 | General Progress Note ---
Assessment/Plan Problem List: (1) GI bleed ICD Codes: K92.2 - Gastrointestinal hemorrhage, unspecified SNOMED: 17983248 (2) Sepsis ICD Codes: A41.9 - Sepsis, unspecified organism SNOMED: 96595539 (3) HCAP (healthcare-associated pneumonia) ICD Codes: J18.9 - Pneumonia, unspecified organism SNOMED: 590349927 (4) UTI (urinary tract infection) ICD Codes: N39.0 - Urinary tract infection, site not specified SNOMED: 86560138 Status: progressing Assessment/Plan sepsis intermittent fever trach and peg persistent leukocytosis dc in am if ok w id Subjective ROS Limited/Unobtainable: Yes Allergies: Coded Allergies: CODEINE (Unverified Allergy, Unknown, 01/10/17) PENICILLINS (Unverified Allergy, Unknown, 01/10/17) Objective Last 24 Hour Vital Signs Date Time Temp Pulse Resp B/P (MAP) Pulse Ox O2 Delivery O2 Flow Rate FiO2 01/15/17 20:37 90 16 99 Mechanical Ventilator 35 01/15/17 17:05 85 16 35 01/15/17 16:00 35 01/15/17 16:00 97.7 89 20 101/45 99 Mechanical Ventilator 35 01/15/17 16:00 101 01/15/17 15:17 92 18 35 01/15/17 13:19 99.7 01/15/17 13:06 90 16 100 Mechanical Ventilator 35 01/15/17 12:54 95 16 99 Mechanical Ventilator 15.0 35 01/15/17 12:53 90 16 35 01/15/17 12:00 71 01/15/17 12:00 99.1 93 20 116/56 96 Mechanical Ventilator 35 01/15/17 12:00 35 01/15/17 11:36 82 18 35 01/15/17 09:14 86 21 35 01/15/17 09:00 90 131/75 01/15/17 08:00 98.1 90 20 131/75 99 Mechanical Ventilator 35 01/15/17 08:00 35 01/15/17 08:00 78 01/15/17 07:26 93 16 100 Mechanical Ventilator 35 01/15/17 07:14 77 15 98 Mechanical Ventilator 15.0 35 01/15/17 07:06 79 16 35 01/15/17 05:00 83 17 35 01/15/17 04:00 98.2 86 25 142/59 95 Mechanical Ventilator 35 01/15/17 04:00 35 01/15/17 04:00 89 01/15/17 03:30 78 14 35 01/15/17 02:20 89 12 100 Mechanical Ventilator 35 01/15/17 02:05 87 22 99 Mechanical Ventilator 35 01/15/17 02:05 87 22 35 01/15/17 00:00 35 01/15/17 00:00 98.4 82 14 100/45 99 Mechanical Ventilator 35 01/14/17 23:04 75 12 35 Intake and Output 01/15/17 01/16/17 19:00 07:00 Intake Total 1180 ml Output Total 450 ml Balance 730 ml Free Water 100 ml IV Total 420 ml Tube Feeding 660 ml Output Urine Total 450 ml # Voids 1 # Bowel Movements 4 Laboratory Tests 01/15/17 03:10: White Blood Count 13.3H, Red Blood Count 3.15L, Hemoglobin 10.5L, Hematocrit 31.1L, Mean Corpuscular Volume 99, Mean Corpuscular Hemoglobin 33.3H, Mean Corpuscular Hemoglobin Concent 33.7, Red Cell Distribution Width 13.7, Platelet Count 361, Mean Platelet Volume 7.8, Neutrophils (%) (Auto) 72.2, Lymphocytes (% ) (Auto) 11.5L, Monocytes (%) (Auto) 11.3H, Eosinophils (%) (Auto) 1.7, Basophils (%) (Auto) 3.3H, Sodium Level 141, Potassium Level 3.9, Chloride Level 109H, Carbon Dioxide Level 29, Anion Gap 3L, Blood Urea Nitrogen 18, Creatinine 0.8, Estimat Glomerular Filtration Rate , Glucose Level 135H, Calcium Level 7.9L, Phosphorus Level 2.6, Magnesium Level 1.5L Height (Feet): 5 Height (Inches): 2.00 Weight (Pounds): 105 General Appearance: confused Fernandez Gomez MD Jan 15, 2017 21:09
--- NOTE | 2017-01-15 21:09 | General Progress Note ---
Assessment/Plan Problem List: (1) GI bleed ICD Codes: K92.2 - Gastrointestinal hemorrhage, unspecified SNOMED: 28366054 (2) Sepsis ICD Codes: A41.9 - Sepsis, unspecified organism SNOMED: 56351886 (3) HCAP (healthcare-associated pneumonia) ICD Codes: J18.9 - Pneumonia, unspecified organism SNOMED: 256503770 (4) UTI (urinary tract infection) ICD Codes: N39.0 - Urinary tract infection, site not specified SNOMED: 27389049 Status: progressing Assessment/Plan sepsis intermittent fever trach and peg persistent leukocytosis dc in am if ok w id Subjective ROS Limited/Unobtainable: Yes Allergies: Coded Allergies: CODEINE (Unverified Allergy, Unknown, 01/10/17) PENICILLINS (Unverified Allergy, Unknown, 01/10/17) Objective Last 24 Hour Vital Signs Date Time Temp Pulse Resp B/P (MAP) Pulse Ox O2 Delivery O2 Flow Rate FiO2 01/15/17 20:37 90 16 99 Mechanical Ventilator 35 01/15/17 17:05 85 16 35 01/15/17 16:00 35 01/15/17 16:00 97.7 89 20 101/45 99 Mechanical Ventilator 35 01/15/17 16:00 101 01/15/17 15:17 92 18 35 01/15/17 13:19 99.7 01/15/17 13:06 90 16 100 Mechanical Ventilator 35 01/15/17 12:54 95 16 99 Mechanical Ventilator 15.0 35 01/15/17 12:53 90 16 35 01/15/17 12:00 71 01/15/17 12:00 99.1 93 20 116/56 96 Mechanical Ventilator 35 01/15/17 12:00 35 01/15/17 11:36 82 18 35 01/15/17 09:14 86 21 35 01/15/17 09:00 90 131/75 01/15/17 08:00 98.1 90 20 131/75 99 Mechanical Ventilator 35 01/15/17 08:00 35 01/15/17 08:00 78 01/15/17 07:26 93 16 100 Mechanical Ventilator 35 01/15/17 07:14 77 15 98 Mechanical Ventilator 15.0 35 01/15/17 07:06 79 16 35 01/15/17 05:00 83 17 35 01/15/17 04:00 98.2 86 25 142/59 95 Mechanical Ventilator 35 01/15/17 04:00 35 01/15/17 04:00 89 01/15/17 03:30 78 14 35 01/15/17 02:20 89 12 100 Mechanical Ventilator 35 01/15/17 02:05 87 22 99 Mechanical Ventilator 35 01/15/17 02:05 87 22 35 01/15/17 00:00 35 01/15/17 00:00 98.4 82 14 100/45 99 Mechanical Ventilator 35 01/14/17 23:04 75 12 35 Intake and Output 01/15/17 01/16/17 19:00 07:00 Intake Total 1180 ml Output Total 450 ml Balance 730 ml Free Water 100 ml IV Total 420 ml Tube Feeding 660 ml Output Urine Total 450 ml # Voids 1 # Bowel Movements 4 Laboratory Tests 01/15/17 03:10: White Blood Count 13.3H, Red Blood Count 3.15L, Hemoglobin 10.5L, Hematocrit 31.1L, Mean Corpuscular Volume 99, Mean Corpuscular Hemoglobin 33.3H, Mean Corpuscular Hemoglobin Concent 33.7, Red Cell Distribution Width 13.7, Platelet Count 361, Mean Platelet Volume 7.8, Neutrophils (%) (Auto) 72.2, Lymphocytes (% ) (Auto) 11.5L, Monocytes (%) (Auto) 11.3H, Eosinophils (%) (Auto) 1.7, Basophils (%) (Auto) 3.3H, Sodium Level 141, Potassium Level 3.9, Chloride Level 109H, Carbon Dioxide Level 29, Anion Gap 3L, Blood Urea Nitrogen 18, Creatinine 0.8, Estimat Glomerular Filtration Rate , Glucose Level 135H, Calcium Level 7.9L, Phosphorus Level 2.6, Magnesium Level 1.5L Height (Feet): 5 Height (Inches): 2.00 Weight (Pounds): 105 General Appearance: confused Fernandez Gomez MD Jan 15, 2017 21:09
--- NOTE | 2017-01-15 21:09 | General Progress Note ---
Assessment/Plan Problem List: (1) GI bleed ICD Codes: K92.2 - Gastrointestinal hemorrhage, unspecified SNOMED: 87932828 (2) Sepsis ICD Codes: A41.9 - Sepsis, unspecified organism SNOMED: 76382084 (3) HCAP (healthcare-associated pneumonia) ICD Codes: J18.9 - Pneumonia, unspecified organism SNOMED: 293159275 (4) UTI (urinary tract infection) ICD Codes: N39.0 - Urinary tract infection, site not specified SNOMED: 06563581 Status: progressing Assessment/Plan sepsis intermittent fever trach and peg persistent leukocytosis dc in am if ok w id Subjective ROS Limited/Unobtainable: Yes Allergies: Coded Allergies: CODEINE (Unverified Allergy, Unknown, 01/10/17) PENICILLINS (Unverified Allergy, Unknown, 01/10/17) Objective Last 24 Hour Vital Signs Date Time Temp Pulse Resp B/P (MAP) Pulse Ox O2 Delivery O2 Flow Rate FiO2 01/15/17 20:37 90 16 99 Mechanical Ventilator 35 01/15/17 17:05 85 16 35 01/15/17 16:00 35 01/15/17 16:00 97.7 89 20 101/45 99 Mechanical Ventilator 35 01/15/17 16:00 101 01/15/17 15:17 92 18 35 01/15/17 13:19 99.7 01/15/17 13:06 90 16 100 Mechanical Ventilator 35 01/15/17 12:54 95 16 99 Mechanical Ventilator 15.0 35 01/15/17 12:53 90 16 35 01/15/17 12:00 71 01/15/17 12:00 99.1 93 20 116/56 96 Mechanical Ventilator 35 01/15/17 12:00 35 01/15/17 11:36 82 18 35 01/15/17 09:14 86 21 35 01/15/17 09:00 90 131/75 01/15/17 08:00 98.1 90 20 131/75 99 Mechanical Ventilator 35 01/15/17 08:00 35 01/15/17 08:00 78 01/15/17 07:26 93 16 100 Mechanical Ventilator 35 01/15/17 07:14 77 15 98 Mechanical Ventilator 15.0 35 01/15/17 07:06 79 16 35 01/15/17 05:00 83 17 35 01/15/17 04:00 98.2 86 25 142/59 95 Mechanical Ventilator 35 01/15/17 04:00 35 01/15/17 04:00 89 01/15/17 03:30 78 14 35 01/15/17 02:20 89 12 100 Mechanical Ventilator 35 01/15/17 02:05 87 22 99 Mechanical Ventilator 35 01/15/17 02:05 87 22 35 01/15/17 00:00 35 01/15/17 00:00 98.4 82 14 100/45 99 Mechanical Ventilator 35 01/14/17 23:04 75 12 35 Intake and Output 01/15/17 01/16/17 19:00 07:00 Intake Total 1180 ml Output Total 450 ml Balance 730 ml Free Water 100 ml IV Total 420 ml Tube Feeding 660 ml Output Urine Total 450 ml # Voids 1 # Bowel Movements 4 Laboratory Tests 01/15/17 03:10: White Blood Count 13.3H, Red Blood Count 3.15L, Hemoglobin 10.5L, Hematocrit 31.1L, Mean Corpuscular Volume 99, Mean Corpuscular Hemoglobin 33.3H, Mean Corpuscular Hemoglobin Concent 33.7, Red Cell Distribution Width 13.7, Platelet Count 361, Mean Platelet Volume 7.8, Neutrophils (%) (Auto) 72.2, Lymphocytes (% ) (Auto) 11.5L, Monocytes (%) (Auto) 11.3H, Eosinophils (%) (Auto) 1.7, Basophils (%) (Auto) 3.3H, Sodium Level 141, Potassium Level 3.9, Chloride Level 109H, Carbon Dioxide Level 29, Anion Gap 3L, Blood Urea Nitrogen 18, Creatinine 0.8, Estimat Glomerular Filtration Rate , Glucose Level 135H, Calcium Level 7.9L, Phosphorus Level 2.6, Magnesium Level 1.5L Height (Feet): 5 Height (Inches): 2.00 Weight (Pounds): 105 General Appearance: confused Fernandez Gomez MD Jan 15, 2017 21:09
--- NOTE | 2017-01-15 22:21 | General Progress Note ---
Assessment/Plan Assessment/Plan Assessment/Plan # Anemia due to chronic disease --> no GI bleed, s/p egd. biopsy negative --> ferritin elevated, no iron deficiency --> hgb goal is >7 --> transfuse if hgb below 7 # HCAP (healthcare-associated pneumonia) # UTI (urinary tract infection) # Sepsis # COPD exacerbation - on nebulizer prn Subjective ROS Limited/Unobtainable: Yes Allergies: Coded Allergies: CODEINE (Unverified Allergy, Unknown, 01/10/17) PENICILLINS (Unverified Allergy, Unknown, 01/10/17) Subjective NAD Objective Last 24 Hour Vital Signs Date Time Temp Pulse Resp B/P (MAP) Pulse Ox O2 Delivery O2 Flow Rate FiO2 01/15/17 20:37 90 16 99 Mechanical Ventilator 35 01/15/17 20:00 35 01/15/17 20:00 98.8 89 20 129/59 100 Mechanical Ventilator 35 01/15/17 19:52 87 01/15/17 17:05 85 16 35 01/15/17 16:00 35 01/15/17 16:00 97.7 89 20 101/45 99 Mechanical Ventilator 35 01/15/17 16:00 101 01/15/17 15:17 92 18 35 01/15/17 13:19 99.7 01/15/17 13:06 90 16 100 Mechanical Ventilator 35 01/15/17 12:54 95 16 99 Mechanical Ventilator 15.0 35 01/15/17 12:53 90 16 35 01/15/17 12:00 71 01/15/17 12:00 99.1 93 20 116/56 96 Mechanical Ventilator 35 01/15/17 12:00 35 01/15/17 11:36 82 18 35 01/15/17 09:14 86 21 35 01/15/17 09:00 90 131/75 01/15/17 08:00 98.1 90 20 131/75 99 Mechanical Ventilator 35 01/15/17 08:00 35 01/15/17 08:00 78 01/15/17 07:26 93 16 100 Mechanical Ventilator 35 01/15/17 07:14 77 15 98 Mechanical Ventilator 15.0 35 01/15/17 07:06 79 16 35 01/15/17 05:00 83 17 35 01/15/17 04:00 98.2 86 25 142/59 95 Mechanical Ventilator 35 01/15/17 04:00 35 01/15/17 04:00 89 01/15/17 03:30 78 14 35 01/15/17 02:20 89 12 100 Mechanical Ventilator 35 01/15/17 02:05 87 22 99 Mechanical Ventilator 35 01/15/17 02:05 87 22 35 01/15/17 00:00 35 01/15/17 00:00 98.4 82 14 100/45 99 Mechanical Ventilator 35 01/14/17 23:04 75 12 35 Intake and Output 01/15/17 01/16/17 19:00 07:00 Intake Total 1180 ml Output Total 450 ml Balance 730 ml Free Water 100 ml IV Total 420 ml Tube Feeding 660 ml Output Urine Total 450 ml # Voids 1 # Bowel Movements 4 Laboratory Tests 01/15/17 03:10: White Blood Count 13.3H, Red Blood Count 3.15L, Hemoglobin 10.5L, Hematocrit 31.1L, Mean Corpuscular Volume 99, Mean Corpuscular Hemoglobin 33.3H, Mean Corpuscular Hemoglobin Concent 33.7, Red Cell Distribution Width 13.7, Platelet Count 361, Mean Platelet Volume 7.8, Neutrophils (%) (Auto) 72.2, Lymphocytes (% ) (Auto) 11.5L, Monocytes (%) (Auto) 11.3H, Eosinophils (%) (Auto) 1.7, Basophils (%) (Auto) 3.3H, Sodium Level 141, Potassium Level 3.9, Chloride Level 109H, Carbon Dioxide Level 29, Anion Gap 3L, Blood Urea Nitrogen 18, Creatinine 0.8, Estimat Glomerular Filtration Rate , Glucose Level 135H, Calcium Level 7.9L, Phosphorus Level 2.6, Magnesium Level 1.5L Height (Feet): 5 Height (Inches): 2.00 Weight (Pounds): 105 General Appearance: no apparent distress EENT: normal ENT inspection Neck: normal alignment, supple Cardiovascular: no gallop/murmur Respiratory/Chest: no accessory muscle use Extremities: non-tender Skin: normal pigmentation ADDIS BLAKE Jan 15, 2017 22:21
[2017-01-16] VITALS: BP 106/47
[2017-01-16] MEDS: Albuterol/Ipratropium 3ml neb HHN SCH ×2 (00:35→06:36)
[2017-01-16] MEDS: Vancomycin 500mg/D5W 110ml IVPB SCH ×2 (01:00)
[2017-01-16 04:00] VITALS: BP 110/58
[2017-01-16 04:42] LABS: HEMATOCRIT 30.1 % (37.0-47.0); HEMOGLOBIN 10.2 G/DL (12.0-16.0); MEAN CORPUSCULAR VOLUME 99 FL (80-99); PLATELET COUNT 354 K/UL (150-450); RED BLOOD COUNT 3.05 M/UL (4.20-5.40); RED CELL DISTRIBUTION WIDTH 13.7 % (11.6-14.8); WHITE BLOOD COUNT 18.2 K/UL (4.8-10.8)
[2017-01-16 04:58] LABS: ANION GAP 6 mmol/L (5-15); BLOOD UREA NITROGEN 23 mg/dL (7-18); CARBON DIOXIDE 28 MMOL/L (21-32); CHLORIDE 108 MMOL/L (98-107); CREATININE 0.8 MG/DL (0.55-1.30); POTASSIUM 4.5 MMOL/L (3.5-5.1); SODIUM 142 MMOL/L (136-145)
[2017-01-16 08:00] VITALS: BP 118/60
[2017-01-16] MEDS: Pantoprazole Inj IVP SCH ×2 (08:58→22:01)
[2017-01-16] MEDS: Ascorbic Acid 500mg tab GT SCH (08:59)
[2017-01-16] MEDS: Valproic Acid 250mg/5ml Liquid NG SCH ×2 (08:59→21:56)
[2017-01-16] MEDS: Memantine 10mg tab GT SCH (08:59)
[2017-01-16] MEDS: Docusate 100mg/10ml Liq NG SCH (09:00)
--- NOTE | 2017-01-16 10:40 | GI Progress Note ---
Assessment/Plan Problems: (1) Anemia due to acute blood loss ICD Codes: D62 - Acute posthemorrhagic anemia SNOMED: 332223310 (2) GI bleed ICD Codes: K92.2 - Gastrointestinal hemorrhage, unspecified SNOMED: 83663712 (3) Severe sepsis ICD Codes: A41.9 - Sepsis, unspecified organism; R65.20 - Severe sepsis without septic shock SNOMED: 37889250 (4) Tracheostomy dependence ICD Codes: Z93.0 - Tracheostomy status SNOMED: 919726720, 228102418 Status: unchanged Status Narrative Discussed with Dr. Amor. Assessment/Plan s/p EGD SUMMARY FINDINGS: 1. Minimum distal esophagitis. 2. Distal esophageal ring. 3. Gastritis. 4. Gastric polyps. OB stool negative RECOMMENDATIONS: fu biopsy and treat >> reflux esophagitis, otherwise unremarkable. ppi BID elevate HOB GT site care/flush prn monitor H&H, prn transfusion consider colonoscopy if needed fu labs The patient was seen and examined at bedside and all new and available data was reviewed in the patients chart. I agree with the above findings, impression and plan. (Patient seen earlier today. Signature stamp does not reflect patient encounter time.). - Theodora Amor MD Subjective Subjective limited Objective Last 24 Hour Vital Signs Date Time Temp Pulse Resp B/P (MAP) Pulse Ox O2 Delivery O2 Flow Rate FiO2 01/16/17 08:59 93 118/60 01/16/17 08:54 98 15 35 01/16/17 08:00 35 01/16/17 08:00 90 01/16/17 08:00 99.0 90 19 118/60 99 Mechanical Ventilator 35 01/16/17 06:44 105 18 98 Mechanical Ventilator 35 01/16/17 06:38 90 21 98 Mechanical Ventilator 35 01/16/17 06:36 90 23 35 01/16/17 05:10 87 20 35 01/16/17 04:00 35 01/16/17 04:00 97.9 90 20 110/58 99 Mechanical Ventilator 35 01/16/17 03:55 91 01/16/17 02:55 96 21 35 01/16/17 00:50 95 17 98 Mechanical Ventilator 35 01/16/17 00:37 93 17 96 Mechanical Ventilator 35 01/16/17 00:36 93 17 35 01/16/17 00:00 35 01/16/17 00:00 97.0 93 18 106/47 97 Mechanical Ventilator 35 01/15/17 23:53 95 01/15/17 22:39 83 17 35 01/15/17 20:57 88 16 100 Mechanical Ventilator 35 01/15/17 20:37 90 16 99 Mechanical Ventilator 35 01/15/17 20:35 87 16 35 01/15/17 20:00 35 01/15/17 20:00 98.8 89 20 129/59 100 Mechanical Ventilator 35 01/15/17 19:52 87 01/15/17 19:45 88 16 35 01/15/17 17:05 85 16 35 01/15/17 16:00 35 01/15/17 16:00 97.7 89 20 101/45 99 Mechanical Ventilator 35 01/15/17 16:00 101 01/15/17 15:17 92 18 35 01/15/17 13:19 99.7 01/15/17 13:06 90 16 100 Mechanical Ventilator 35 01/15/17 12:54 95 16 99 Mechanical Ventilator 15.0 35 01/15/17 12:53 90 16 35 01/15/17 12:00 71 01/15/17 12:00 99.1 93 20 116/56 96 Mechanical Ventilator 35 01/15/17 12:00 35 01/15/17 11:36 82 18 35 Intake and Output 01/16/17 01/17/17 19:00 07:00 # Bowel Movements 1 Laboratory Tests Test 01/16/17 04:00 White Blood Count 18.2 K/UL (4.8-10.8) H Red Blood Count 3.05 M/UL (4.20-5.40) L Hemoglobin 10.2 G/DL (12.0-16.0) L Hematocrit 30.1 % (37.0-47.0) L Mean Corpuscular Volume 99 FL (80-99) Mean Corpuscular Hemoglobin 33.5 PG (27.0-31.0) H Mean Corpuscular Hemoglobin Concent 34.0 G/DL (32.0-36.0) Red Cell Distribution Width 13.7 % (11.6-14.8) Platelet Count 354 K/UL (150-450) Mean Platelet Volume 8.1 FL (6.5-10.1) Neutrophils (%) (Auto) % (45.0-75.0) Lymphocytes (%) (Auto) % (20.0-45.0) Monocytes (%) (Auto) % (1.0-10.0) Eosinophils (%) (Auto) % (0.0-3.0) Basophils (%) (Auto) % (0.0-2.0) Differential Total Cells Counted 100 Neutrophils % (Manual) 65 % (45-75) Lymphocytes % (Manual) 15 % (20-45) L Monocytes % (Manual) 15 % (1-10) H Eosinophils % (Manual) 1 % (0-3) Basophils % (Manual) 1 % (0-2) Band Neutrophils 3 % (0-8) Platelet Estimate Adequate Platelet Morphology Normal Hypochromasia 1+ Sodium Level 142 MMOL/L (136-145) Potassium Level 4.5 MMOL/L (3.5-5.1) Chloride Level 108 MMOL/L (98-107) H Carbon Dioxide Level 28 MMOL/L (21-32) Anion Gap 6 mmol/L (5-15) Blood Urea Nitrogen 23 mg/dL (7-18) H Creatinine 0.8 MG/DL (0.55-1.30) Estimat Glomerular Filtration Rate mL/min (>60) Glucose Level 108 MG/DL (74-106) H Calcium Level 8.0 MG/DL (8.5-10.1) L Magnesium Level 1.9 MG/DL (1.8-2.4) TB Test (T-Spot) Pending TB Test Nil Control (T-Spot) Pending TB Test Panel A (T-Spot) Pending TB Test Panel B (T-Spot) Pending TB Test Positive Control (T-Spot) Pending Height (Feet): 5 Height (Inches): 2.00 Weight (Pounds): 105 General Appearance: no apparent distress Cardiovascular: normal rate Respiratory/Chest: other - mech vent Abdominal Exam: GT site - c/d/i, other Rosibel Newton N.[email or web address] Jan 16, 2017 10:40 MICHELLE AMOR Jan 19, 2017 09:20
[2017-01-16] MEDS ORDERED: Acetaminophen 650mg/20.3ml GT PRN (11:45)
[2017-01-16 12:00] VITALS: BP 105/43
--- NOTE | 2017-01-16 12:57 | Pulmonology Progress Note ---
Assessment/Plan Assessment/Plan 1. Ventilator-dependent respiratory failure. 2. Chronic pneumonia, possible underlying congestive heart failure. 3. Urinary tract infection. 4. Sepsis. 5. Hypertension. 6. Diabetes. 7. Large bilateral effusions on CT thoracentesis pending consent by conservator CT w infiltrates and effusions WBC 18 cont vent support abx per ID disc w RN Subjective ROS Limited/Unobtainable: Yes Constitutional: Denies: fever Allergies: Coded Allergies: CODEINE (Unverified Allergy, Unknown, 01/10/17) PENICILLINS (Unverified Allergy, Unknown, 01/10/17) Objective Last 24 Hour Vital Signs Date Time Temp Pulse Resp B/P (MAP) Pulse Ox O2 Delivery O2 Flow Rate FiO2 01/16/17 12:00 35 01/16/17 12:00 98.5 95 20 105/43 99 Mechanical Ventilator 35 01/16/17 11:02 104 17 35 01/16/17 08:59 93 118/60 01/16/17 08:54 98 15 35 01/16/17 08:00 35 01/16/17 08:00 90 01/16/17 08:00 99.0 90 19 118/60 99 Mechanical Ventilator 35 01/16/17 06:44 105 18 98 Mechanical Ventilator 35 01/16/17 06:38 90 21 98 Mechanical Ventilator 35 01/16/17 06:36 90 23 35 01/16/17 05:10 87 20 35 01/16/17 04:00 35 01/16/17 04:00 97.9 90 20 110/58 99 Mechanical Ventilator 35 01/16/17 03:55 91 01/16/17 02:55 96 21 35 01/16/17 00:50 95 17 98 Mechanical Ventilator 35 01/16/17 00:37 93 17 96 Mechanical Ventilator 35 01/16/17 00:36 93 17 35 01/16/17 00:00 35 01/16/17 00:00 97.0 93 18 106/47 97 Mechanical Ventilator 35 01/15/17 23:53 95 01/15/17 22:39 83 17 35 01/15/17 20:57 88 16 100 Mechanical Ventilator 35 01/15/17 20:37 90 16 99 Mechanical Ventilator 35 01/15/17 20:35 87 16 35 01/15/17 20:00 35 01/15/17 20:00 98.8 89 20 129/59 100 Mechanical Ventilator 35 01/15/17 19:52 87 01/15/17 19:45 88 16 35 01/15/17 17:05 85 16 35 01/15/17 16:00 35 01/15/17 16:00 97.7 89 20 101/45 99 Mechanical Ventilator 35 01/15/17 16:00 101 01/15/17 15:17 92 18 35 01/15/17 13:19 99.7 01/15/17 13:06 90 16 100 Mechanical Ventilator 35 Intake and Output 01/16/17 01/17/17 19:00 07:00 # Bowel Movements 1 Objective trach/vent G tube General Appearance: no acute distress, cachetic HEENT: atraumatic Respiratory/Chest: decreased breath sounds Cardiovascular: normal rate Laboratory Tests 01/16/17 04:00: White Blood Count 18.2H, Red Blood Count 3.05L, Hemoglobin 10.2L, Hematocrit 30.1L, Mean Corpuscular Volume 99, Mean Corpuscular Hemoglobin 33.5H, Mean Corpuscular Hemoglobin Concent 34.0, Red Cell Distribution Width 13.7, Platelet Count 354, Mean Platelet Volume 8.1, Neutrophils (%) (Auto) , Lymphocytes (%) ( Auto) , Monocytes (%) (Auto) , Eosinophils (%) (Auto) , Basophils (%) (Auto) , Differential Total Cells Counted 100, Neutrophils % (Manual) 65, Lymphocytes % ( Manual) 15L, Monocytes % (Manual) 15H, Eosinophils % (Manual) 1, Basophils % ( Manual) 1, Band Neutrophils 3, Platelet Estimate Adequate, Platelet Morphology Normal, Hypochromasia 1+, Sodium Level 142, Potassium Level 4.5, Chloride Level 108H, Carbon Dioxide Level 28, Anion Gap 6, Blood Urea Nitrogen 23H, Creatinine 0.8, Estimat Glomerular Filtration Rate , Glucose Level 108H, Calcium Level 8.0L , Magnesium Level 1.9, TB Test (T-Spot) [Pending], TB Test Nil Control (T-Spot) [Pending], TB Test Panel A (T-Spot) [Pending], TB Test Panel B (T-Spot) [Pending ], TB Test Positive Control (T-Spot) [Pending] Current Medications Medications (Trade) Dose Ordered Sig/Sky Route PRN Reason Start Time Stop Time Status Last Admin Dose Admin Acetaminophen (Tylenol) 650 mg Q6H PRN GT Mild Pain/Temp > 100.5 01/16/17 11:45 02/09/17 17:59 Acetylcysteine (Mucomyst) 400 mg Q6HRT IN-LINE 01/15/17 01:00 02/14/17 00:59 01/16/17 06:36 Albuterol/ Ipratropium (Albuterol/ Ipratropium) 3 ml Q6HRT HHN 01/11/17 13:00 01/16/17 12:59 01/16/17 06:36 Amlodipine Besylate (Norvasc) 2.5 mg DAILY GT 01/11/17 09:00 02/10/17 08:59 01/16/17 08:59 Ascorbic Acid (Vitamin C) 500 mg DAILY GT 01/11/17 09:00 02/10/17 08:59 01/16/17 08:59 Cefepime HCl 2 gm/ Dextrose 110 ml @ 220 mls/hr Q24H IVPB 01/15/17 17:00 01/22/17 16:59 01/15/17 17:30 Dextrose (Dextrose 50%) STAT PRN IV Hypoglycemia 01/10/17 14:45 02/09/17 14:44 Docusate Sodium (Colace) 250 mg DAILY NG 01/11/17 09:00 02/10/17 08:59 01/14/17 09:00 Memantine (Namenda) 10 mg DAILY GT 01/11/17 09:00 02/10/17 08:59 01/16/17 08:59 Ondansetron HCl (Zofran) 4 mg Q6H PRN IVP Nausea & Vomiting 01/10/17 14:45 02/09/17 14:44 Pantoprazole (Protonix) 40 mg EVERY 12 HOURS IVP 01/11/17 09:00 02/10/17 08:59 01/16/17 08:58 Polyethylene Glycol (Miralax) 17 gm BEDTIME GT 01/16/17 21:00 02/12/17 20:59 Risperidone (RisperDAL) 1 mg QHS GT 01/10/17 21:00 02/09/17 20:59 01/15/17 20:28 Valproic Acid (Depakene) 125 mg EVERY 12 HOURS NG 01/15/17 21:00 02/14/17 20:59 01/16/17 08:59 Vancomycin HCl (Vanco rx to dose) 1 ea DAILY PRN MISC Per rx protocol 01/10/17 12:15 02/09/17 12:14 Vancomycin HCl 500 mg/Dextrose 110 ml @ 110 mls/hr Q24H IVPB 01/15/17 00:00 01/19/17 23:59 01/16/17 01:00 MELANIE ENGLISH Jan 16, 2017 12:57
--- NOTE | 2017-01-16 14:38 | General Progress Note ---
Assessment/Plan Problem List: (1) GI bleed ICD Codes: K92.2 - Gastrointestinal hemorrhage, unspecified SNOMED: 90031018 (2) Sepsis ICD Codes: A41.9 - Sepsis, unspecified organism SNOMED: 67061538 (3) HCAP (healthcare-associated pneumonia) ICD Codes: J18.9 - Pneumonia, unspecified organism SNOMED: 464423213 (4) UTI (urinary tract infection) ICD Codes: N39.0 - Urinary tract infection, site not specified SNOMED: 81649431 Status: unchanged Assessment/Plan sepsis intermittent fever trach and peg pleural effusion thoracocentesis today not stable for dc Subjective ROS Limited/Unobtainable: Yes Allergies: Coded Allergies: CODEINE (Unverified Allergy, Unknown, 01/10/17) PENICILLINS (Unverified Allergy, Unknown, 01/10/17) Objective Last 24 Hour Vital Signs Date Time Temp Pulse Resp B/P (MAP) Pulse Ox O2 Delivery O2 Flow Rate FiO2 01/16/17 13:37 97 16 100 Mechanical Ventilator 35 01/16/17 13:32 95 19 100 Mechanical Ventilator 35 01/16/17 13:29 98 19 35 01/16/17 12:00 35 01/16/17 12:00 93 01/16/17 12:00 98.5 95 20 105/43 99 Mechanical Ventilator 35 01/16/17 11:02 104 17 35 01/16/17 08:59 93 118/60 01/16/17 08:54 98 15 35 01/16/17 08:00 35 01/16/17 08:00 90 01/16/17 08:00 99.0 90 19 118/60 99 Mechanical Ventilator 35 01/16/17 06:44 105 18 98 Mechanical Ventilator 35 01/16/17 06:38 90 21 98 Mechanical Ventilator 35 01/16/17 06:36 90 23 35 01/16/17 05:10 87 20 35 01/16/17 04:00 35 01/16/17 04:00 97.9 90 20 110/58 99 Mechanical Ventilator 35 01/16/17 03:55 91 01/16/17 02:55 96 21 35 01/16/17 00:50 95 17 98 Mechanical Ventilator 35 01/16/17 00:37 93 17 96 Mechanical Ventilator 35 01/16/17 00:36 93 17 35 01/16/17 00:00 35 01/16/17 00:00 97.0 93 18 106/47 97 Mechanical Ventilator 35 01/15/17 23:53 95 01/15/17 22:39 83 17 35 01/15/17 20:57 88 16 100 Mechanical Ventilator 35 01/15/17 20:37 90 16 99 Mechanical Ventilator 35 01/15/17 20:35 87 16 35 01/15/17 20:00 35 01/15/17 20:00 98.8 89 20 129/59 100 Mechanical Ventilator 35 01/15/17 19:52 87 01/15/17 19:45 88 16 35 01/15/17 17:05 85 16 35 01/15/17 16:00 35 01/15/17 16:00 97.7 89 20 101/45 99 Mechanical Ventilator 35 01/15/17 16:00 101 01/15/17 15:17 92 18 35 Intake and Output 01/16/17 01/17/17 19:00 07:00 Intake Total 560 ml Output Total 2 ml Balance 558 ml Free Water 200 ml Tube Feeding 360 ml Output Urine Total 2 ml # Bowel Movements 2 Laboratory Tests 01/16/17 04:00: White Blood Count 18.2H, Red Blood Count 3.05L, Hemoglobin 10.2L, Hematocrit 30.1L, Mean Corpuscular Volume 99, Mean Corpuscular Hemoglobin 33.5H, Mean Corpuscular Hemoglobin Concent 34.0, Red Cell Distribution Width 13.7, Platelet Count 354, Mean Platelet Volume 8.1, Neutrophils (%) (Auto) , Lymphocytes (%) ( Auto) , Monocytes (%) (Auto) , Eosinophils (%) (Auto) , Basophils (%) (Auto) , Differential Total Cells Counted 100, Neutrophils % (Manual) 65, Lymphocytes % ( Manual) 15L, Monocytes % (Manual) 15H, Eosinophils % (Manual) 1, Basophils % ( Manual) 1, Band Neutrophils 3, Platelet Estimate Adequate, Platelet Morphology Normal, Hypochromasia 1+, Sodium Level 142, Potassium Level 4.5, Chloride Level 108H, Carbon Dioxide Level 28, Anion Gap 6, Blood Urea Nitrogen 23H, Creatinine 0.8, Estimat Glomerular Filtration Rate , Glucose Level 108H, Calcium Level 8.0L , Magnesium Level 1.9, TB Test (T-Spot) [Pending], TB Test Nil Control (T-Spot) [Pending], TB Test Panel A (T-Spot) [Pending], TB Test Panel B (T-Spot) [Pending ], TB Test Positive Control (T-Spot) [Pending] Height (Feet): 5 Height (Inches): 2.00 Weight (Pounds): 105 General Appearance: confused Cardiovascular: normal rate Abdomen: soft Fernandez Gomez MD Jan 16, 2017 14:38
--- NOTE | 2017-01-16 14:38 | General Progress Note ---
Assessment/Plan Problem List: (1) GI bleed ICD Codes: K92.2 - Gastrointestinal hemorrhage, unspecified SNOMED: 33238099 (2) Sepsis ICD Codes: A41.9 - Sepsis, unspecified organism SNOMED: 64350314 (3) HCAP (healthcare-associated pneumonia) ICD Codes: J18.9 - Pneumonia, unspecified organism SNOMED: 174807270 (4) UTI (urinary tract infection) ICD Codes: N39.0 - Urinary tract infection, site not specified SNOMED: 61068227 Status: unchanged Assessment/Plan sepsis intermittent fever trach and peg pleural effusion thoracocentesis today not stable for dc Subjective ROS Limited/Unobtainable: Yes Allergies: Coded Allergies: CODEINE (Unverified Allergy, Unknown, 01/10/17) PENICILLINS (Unverified Allergy, Unknown, 01/10/17) Objective Last 24 Hour Vital Signs Date Time Temp Pulse Resp B/P (MAP) Pulse Ox O2 Delivery O2 Flow Rate FiO2 01/16/17 13:37 97 16 100 Mechanical Ventilator 35 01/16/17 13:32 95 19 100 Mechanical Ventilator 35 01/16/17 13:29 98 19 35 01/16/17 12:00 35 01/16/17 12:00 93 01/16/17 12:00 98.5 95 20 105/43 99 Mechanical Ventilator 35 01/16/17 11:02 104 17 35 01/16/17 08:59 93 118/60 01/16/17 08:54 98 15 35 01/16/17 08:00 35 01/16/17 08:00 90 01/16/17 08:00 99.0 90 19 118/60 99 Mechanical Ventilator 35 01/16/17 06:44 105 18 98 Mechanical Ventilator 35 01/16/17 06:38 90 21 98 Mechanical Ventilator 35 01/16/17 06:36 90 23 35 01/16/17 05:10 87 20 35 01/16/17 04:00 35 01/16/17 04:00 97.9 90 20 110/58 99 Mechanical Ventilator 35 01/16/17 03:55 91 01/16/17 02:55 96 21 35 01/16/17 00:50 95 17 98 Mechanical Ventilator 35 01/16/17 00:37 93 17 96 Mechanical Ventilator 35 01/16/17 00:36 93 17 35 01/16/17 00:00 35 01/16/17 00:00 97.0 93 18 106/47 97 Mechanical Ventilator 35 01/15/17 23:53 95 01/15/17 22:39 83 17 35 01/15/17 20:57 88 16 100 Mechanical Ventilator 35 01/15/17 20:37 90 16 99 Mechanical Ventilator 35 01/15/17 20:35 87 16 35 01/15/17 20:00 35 01/15/17 20:00 98.8 89 20 129/59 100 Mechanical Ventilator 35 01/15/17 19:52 87 01/15/17 19:45 88 16 35 01/15/17 17:05 85 16 35 01/15/17 16:00 35 01/15/17 16:00 97.7 89 20 101/45 99 Mechanical Ventilator 35 01/15/17 16:00 101 01/15/17 15:17 92 18 35 Intake and Output 01/16/17 01/17/17 19:00 07:00 Intake Total 560 ml Output Total 2 ml Balance 558 ml Free Water 200 ml Tube Feeding 360 ml Output Urine Total 2 ml # Bowel Movements 2 Laboratory Tests 01/16/17 04:00: White Blood Count 18.2H, Red Blood Count 3.05L, Hemoglobin 10.2L, Hematocrit 30.1L, Mean Corpuscular Volume 99, Mean Corpuscular Hemoglobin 33.5H, Mean Corpuscular Hemoglobin Concent 34.0, Red Cell Distribution Width 13.7, Platelet Count 354, Mean Platelet Volume 8.1, Neutrophils (%) (Auto) , Lymphocytes (%) ( Auto) , Monocytes (%) (Auto) , Eosinophils (%) (Auto) , Basophils (%) (Auto) , Differential Total Cells Counted 100, Neutrophils % (Manual) 65, Lymphocytes % ( Manual) 15L, Monocytes % (Manual) 15H, Eosinophils % (Manual) 1, Basophils % ( Manual) 1, Band Neutrophils 3, Platelet Estimate Adequate, Platelet Morphology Normal, Hypochromasia 1+, Sodium Level 142, Potassium Level 4.5, Chloride Level 108H, Carbon Dioxide Level 28, Anion Gap 6, Blood Urea Nitrogen 23H, Creatinine 0.8, Estimat Glomerular Filtration Rate , Glucose Level 108H, Calcium Level 8.0L , Magnesium Level 1.9, TB Test (T-Spot) [Pending], TB Test Nil Control (T-Spot) [Pending], TB Test Panel A (T-Spot) [Pending], TB Test Panel B (T-Spot) [Pending ], TB Test Positive Control (T-Spot) [Pending] Height (Feet): 5 Height (Inches): 2.00 Weight (Pounds): 105 General Appearance: confused Cardiovascular: normal rate Abdomen: soft Fernandez Gomez MD Jan 16, 2017 14:38
--- NOTE | 2017-01-16 14:38 | General Progress Note ---
Assessment/Plan Problem List: (1) GI bleed ICD Codes: K92.2 - Gastrointestinal hemorrhage, unspecified SNOMED: 26124087 (2) Sepsis ICD Codes: A41.9 - Sepsis, unspecified organism SNOMED: 97308192 (3) HCAP (healthcare-associated pneumonia) ICD Codes: J18.9 - Pneumonia, unspecified organism SNOMED: 172494572 (4) UTI (urinary tract infection) ICD Codes: N39.0 - Urinary tract infection, site not specified SNOMED: 61386295 Status: unchanged Assessment/Plan sepsis intermittent fever trach and peg pleural effusion thoracocentesis today not stable for dc Subjective ROS Limited/Unobtainable: Yes Allergies: Coded Allergies: CODEINE (Unverified Allergy, Unknown, 01/10/17) PENICILLINS (Unverified Allergy, Unknown, 01/10/17) Objective Last 24 Hour Vital Signs Date Time Temp Pulse Resp B/P (MAP) Pulse Ox O2 Delivery O2 Flow Rate FiO2 01/16/17 13:37 97 16 100 Mechanical Ventilator 35 01/16/17 13:32 95 19 100 Mechanical Ventilator 35 01/16/17 13:29 98 19 35 01/16/17 12:00 35 01/16/17 12:00 93 01/16/17 12:00 98.5 95 20 105/43 99 Mechanical Ventilator 35 01/16/17 11:02 104 17 35 01/16/17 08:59 93 118/60 01/16/17 08:54 98 15 35 01/16/17 08:00 35 01/16/17 08:00 90 01/16/17 08:00 99.0 90 19 118/60 99 Mechanical Ventilator 35 01/16/17 06:44 105 18 98 Mechanical Ventilator 35 01/16/17 06:38 90 21 98 Mechanical Ventilator 35 01/16/17 06:36 90 23 35 01/16/17 05:10 87 20 35 01/16/17 04:00 35 01/16/17 04:00 97.9 90 20 110/58 99 Mechanical Ventilator 35 01/16/17 03:55 91 01/16/17 02:55 96 21 35 01/16/17 00:50 95 17 98 Mechanical Ventilator 35 01/16/17 00:37 93 17 96 Mechanical Ventilator 35 01/16/17 00:36 93 17 35 01/16/17 00:00 35 01/16/17 00:00 97.0 93 18 106/47 97 Mechanical Ventilator 35 01/15/17 23:53 95 01/15/17 22:39 83 17 35 01/15/17 20:57 88 16 100 Mechanical Ventilator 35 01/15/17 20:37 90 16 99 Mechanical Ventilator 35 01/15/17 20:35 87 16 35 01/15/17 20:00 35 01/15/17 20:00 98.8 89 20 129/59 100 Mechanical Ventilator 35 01/15/17 19:52 87 01/15/17 19:45 88 16 35 01/15/17 17:05 85 16 35 01/15/17 16:00 35 01/15/17 16:00 97.7 89 20 101/45 99 Mechanical Ventilator 35 01/15/17 16:00 101 01/15/17 15:17 92 18 35 Intake and Output 01/16/17 01/17/17 19:00 07:00 Intake Total 560 ml Output Total 2 ml Balance 558 ml Free Water 200 ml Tube Feeding 360 ml Output Urine Total 2 ml # Bowel Movements 2 Laboratory Tests 01/16/17 04:00: White Blood Count 18.2H, Red Blood Count 3.05L, Hemoglobin 10.2L, Hematocrit 30.1L, Mean Corpuscular Volume 99, Mean Corpuscular Hemoglobin 33.5H, Mean Corpuscular Hemoglobin Concent 34.0, Red Cell Distribution Width 13.7, Platelet Count 354, Mean Platelet Volume 8.1, Neutrophils (%) (Auto) , Lymphocytes (%) ( Auto) , Monocytes (%) (Auto) , Eosinophils (%) (Auto) , Basophils (%) (Auto) , Differential Total Cells Counted 100, Neutrophils % (Manual) 65, Lymphocytes % ( Manual) 15L, Monocytes % (Manual) 15H, Eosinophils % (Manual) 1, Basophils % ( Manual) 1, Band Neutrophils 3, Platelet Estimate Adequate, Platelet Morphology Normal, Hypochromasia 1+, Sodium Level 142, Potassium Level 4.5, Chloride Level 108H, Carbon Dioxide Level 28, Anion Gap 6, Blood Urea Nitrogen 23H, Creatinine 0.8, Estimat Glomerular Filtration Rate , Glucose Level 108H, Calcium Level 8.0L , Magnesium Level 1.9, TB Test (T-Spot) [Pending], TB Test Nil Control (T-Spot) [Pending], TB Test Panel A (T-Spot) [Pending], TB Test Panel B (T-Spot) [Pending ], TB Test Positive Control (T-Spot) [Pending] Height (Feet): 5 Height (Inches): 2.00 Weight (Pounds): 105 General Appearance: confused Cardiovascular: normal rate Abdomen: soft Fernandez Gomez MD Jan 16, 2017 14:38
[2017-01-16] MEDS ORDERED: NS 275ml ONE (15:26)
[2017-01-16] MEDS ORDERED: Tubing IV Secondary IV ONE (15:26)
[2017-01-16 16:00] VITALS: BP 121/69
[2017-01-16] MEDS: Cefepime HCl 2 GM in D5W 110 ML IVPB SCH (16:59)
--- NOTE | 2017-01-16 17:16 | Diagnostic Imaging Report ---
Indications: Pleural effusion Technique: Ultrasound used to localize optimal puncture site. Sterile prepping and draping chest. Local anesthesia with 1% lidocaine. Under real-time ultrasound guidance, puncture pleural space using thoracentesis needle. Stylet removed. Catheter placed to vacuum bottle suction. Total 860 milliliters of cloudy yellow fluid aspirated. A specimen was sent to the lab. Patient tolerated procedure well, without immediate complication. Findings: Followup sonography demonstrates complete resolution of pleural fluid. Impression: Successful ultrasound-guided thoracentesis, yielding 860 milliliters of cloudy yellow fluid
--- NOTE | 2017-01-16 17:17 | Diagnostic Imaging Report ---
Indication: Postthoracentesis Technique: One view of the chest Comparison: 01/14/2017 Findings: Interim resolution of previously demonstrated right-sided pleural effusion, post thoracentesis. No gross pneumothorax. Left pleural effusion persists. Lungs are clear. Tracheostomy remains Impression: Resolved right pleural effusion, status post thoracentesis. No radiographically evident complication Other findings as noted
--- NOTE | 2017-01-16 17:36 | Infectious Diseases Prog Note ---
Assessment/Plan Problems: (1) HCAP (healthcare-associated pneumonia) Assessment & Plan: due to MRSA and haemophilus influenza with bilateral basal consolidation complicated with parapneumonia effusion , rule out empyema , S/P thoracentesis, await fluids to be sent for gram stain, culture, fungal, AFB, and adenosis deaminase, continue vancomycin , and cefepime , and monitor temperature (2) UTI (urinary tract infection) Assessment & Plan: with santhosh, less than 10 0000 colony, most likely colonization, recommend to change travis catheter , no need for antifungal (3) Sepsis Assessment & Plan: due to the above, with negative blood culture, continue wide spectrum antibiotics (4) GI bleed Assessment & Plan: monitor H/H, transfuse as needed , GI is following (5) COPD exacerbation Assessment & Plan: continue nebulizer therapy, monitor CXR (6) Open nasal wound Assessment & Plan: not deep to the nasal cavity with no necrosis , no evidenc of fungal growth , and she had previously candiduria at [facility], culture here showed candda again, most likely colonizer (7) Sacral wound Assessment & Plan: continue local wound care and off loading , consult wound care (8) Recurrent fever Assessment & Plan: rule out empyema , or atypical infection such as TB , screening with gold test is pending Subjective ROS Limited/Unobtainable: Yes Allergies: Coded Allergies: CODEINE (Unverified Allergy, Unknown, 01/10/17) PENICILLINS (Unverified Allergy, Unknown, 01/10/17) Subjective she is lying in bed, alert, on mechanical ventilation through her trach, had low grade fever , open eyes spontaneously not in distress Objective Vital Signs Last 24 Hour Vital Signs Date Time Temp Pulse Resp B/P (MAP) Pulse Ox O2 Delivery O2 Flow Rate FiO2 01/16/17 16:37 94 22 35 01/16/17 16:00 35 01/16/17 16:00 90 01/16/17 16:00 99.0 98 19 121/69 99 Mechanical Ventilator 35 01/16/17 14:56 95 17 35 01/16/17 13:37 97 16 100 Mechanical Ventilator 35 01/16/17 13:32 95 19 100 Mechanical Ventilator 35 01/16/17 13:29 98 19 35 01/16/17 12:00 35 01/16/17 12:00 93 01/16/17 12:00 98.5 95 20 105/43 99 Mechanical Ventilator 35 01/16/17 11:02 104 17 35 01/16/17 08:59 93 118/60 01/16/17 08:54 98 15 35 01/16/17 08:00 35 01/16/17 08:00 90 01/16/17 08:00 99.0 90 19 118/60 99 Mechanical Ventilator 35 01/16/17 06:44 105 18 98 Mechanical Ventilator 35 01/16/17 06:38 90 21 98 Mechanical Ventilator 35 01/16/17 06:36 90 23 35 01/16/17 05:10 87 20 35 01/16/17 04:00 35 01/16/17 04:00 97.9 90 20 110/58 99 Mechanical Ventilator 35 01/16/17 03:55 91 01/16/17 02:55 96 21 35 01/16/17 00:50 95 17 98 Mechanical Ventilator 35 01/16/17 00:37 93 17 96 Mechanical Ventilator 35 01/16/17 00:36 93 17 35 01/16/17 00:00 35 01/16/17 00:00 97.0 93 18 106/47 97 Mechanical Ventilator 35 01/15/17 23:53 95 01/15/17 22:39 83 17 35 01/15/17 20:57 88 16 100 Mechanical Ventilator 35 01/15/17 20:37 90 16 99 Mechanical Ventilator 35 01/15/17 20:35 87 16 35 01/15/17 20:00 35 01/15/17 20:00 98.8 89 20 129/59 100 Mechanical Ventilator 35 01/15/17 19:52 87 01/15/17 19:45 88 16 35 Height (Feet): 5 Height (Inches): 2.00 Weight (Pounds): 105 General Appearance: WD/WN, no acute distress, cachetic HEENT: normocephalic, atraumatic, anicteric Respiratory/Chest: chest wall non-tender, no respiratory distress, no accessory muscle use, decreased breath sounds, crackles/rales Cardiovascular: normal peripheral pulses, normal rate, regular rhythm, no gallop/murmur, no JVD Abdomen: normal bowel sounds, soft, non tender, no organomegaly, non distended , no mass, no scars Extremities: no cyanosis, no clubbing Skin: no rash, no lesions, ulcers Neurologic/Psychiatric: alert Laboratory Tests Test 01/16/17 04:00 White Blood Count 18.2 K/UL (4.8-10.8) H Red Blood Count 3.05 M/UL (4.20-5.40) L Hemoglobin 10.2 G/DL (12.0-16.0) L Hematocrit 30.1 % (37.0-47.0) L Mean Corpuscular Volume 99 FL (80-99) Mean Corpuscular Hemoglobin 33.5 PG (27.0-31.0) H Mean Corpuscular Hemoglobin Concent 34.0 G/DL (32.0-36.0) Red Cell Distribution Width 13.7 % (11.6-14.8) Platelet Count 354 K/UL (150-450) Mean Platelet Volume 8.1 FL (6.5-10.1) Neutrophils (%) (Auto) % (45.0-75.0) Lymphocytes (%) (Auto) % (20.0-45.0) Monocytes (%) (Auto) % (1.0-10.0) Eosinophils (%) (Auto) % (0.0-3.0) Basophils (%) (Auto) % (0.0-2.0) Differential Total Cells Counted 100 Neutrophils % (Manual) 65 % (45-75) Lymphocytes % (Manual) 15 % (20-45) L Monocytes % (Manual) 15 % (1-10) H Eosinophils % (Manual) 1 % (0-3) Basophils % (Manual) 1 % (0-2) Band Neutrophils 3 % (0-8) Platelet Estimate Adequate Platelet Morphology Normal Hypochromasia 1+ Sodium Level 142 MMOL/L (136-145) Potassium Level 4.5 MMOL/L (3.5-5.1) Chloride Level 108 MMOL/L (98-107) H Carbon Dioxide Level 28 MMOL/L (21-32) Anion Gap 6 mmol/L (5-15) Blood Urea Nitrogen 23 mg/dL (7-18) H Creatinine 0.8 MG/DL (0.55-1.30) Estimat Glomerular Filtration Rate mL/min (>60) Glucose Level 108 MG/DL (74-106) H Calcium Level 8.0 MG/DL (8.5-10.1) L Magnesium Level 1.9 MG/DL (1.8-2.4) TB Test (T-Spot) Pending TB Test Nil Control (T-Spot) Pending TB Test Panel A (T-Spot) Pending TB Test Panel B (T-Spot) Pending TB Test Positive Control (T-Spot) Pending Current Medications Medications (Trade) Dose Ordered Sig/Sky Route PRN Reason Start Time Stop Time Status Last Admin Dose Admin Acetaminophen (Tylenol) 650 mg Q6H PRN GT Mild Pain/Temp > 100.5 01/16/17 11:45 02/09/17 17:59 Acetylcysteine (Mucomyst) 400 mg Q6HRT IN-LINE 01/15/17 01:00 02/14/17 00:59 01/16/17 13:29 Amlodipine Besylate (Norvasc) 2.5 mg DAILY GT 01/11/17 09:00 02/10/17 08:59 01/16/17 08:59 Ascorbic Acid (Vitamin C) 500 mg DAILY GT 01/11/17 09:00 02/10/17 08:59 01/16/17 08:59 Cefepime HCl 2 gm/ Dextrose 110 ml @ 220 mls/hr Q24H IVPB 01/15/17 17:00 01/22/17 16:59 01/16/17 16:59 Dextrose (Dextrose 50%) STAT PRN IV Hypoglycemia 01/10/17 14:45 02/09/17 14:44 Docusate Sodium (Colace) 250 mg DAILY NG 01/11/17 09:00 02/10/17 08:59 01/14/17 09:00 Memantine (Namenda) 10 mg DAILY GT 01/11/17 09:00 02/10/17 08:59 01/16/17 08:59 Ondansetron HCl (Zofran) 4 mg Q6H PRN IVP Nausea & Vomiting 01/10/17 14:45 02/09/17 14:44 Pantoprazole (Protonix) 40 mg EVERY 12 HOURS IVP 01/11/17 09:00 02/10/17 08:59 01/16/17 08:58 Polyethylene Glycol (Miralax) 17 gm BEDTIME GT 01/16/17 21:00 02/12/17 20:59 Risperidone (RisperDAL) 1 mg QHS GT 01/10/17 21:00 02/09/17 20:59 01/15/17 20:28 Valproic Acid (Depakene) 125 mg EVERY 12 HOURS NG 01/15/17 21:00 02/14/17 20:59 01/16/17 08:59 Vancomycin HCl (Vanco rx to dose) 1 ea DAILY PRN MISC Per rx protocol 01/10/17 12:15 02/09/17 12:14 Vancomycin HCl 500 mg/Dextrose 110 ml @ 110 mls/hr Q24H IVPB 01/15/17 00:00 01/19/17 23:59 01/16/17 01:00 Shankar Qiu M.D. Jan 16, 2017 17:36
[2017-01-16] MEDS ORDERED: Albuterol/Ipratropium 3ml neb HHN PRN (18:45)
[2017-01-16 20:00] VITALS: BP 112/51
[2017-01-16] MEDS: Miralax 17gm pkt GT SCH (21:54)
--- NOTE | 2017-01-16 22:59 | General Progress Note ---
Assessment/Plan Assessment/Plan Assessment/Plan # Leukocytosis 2/2 sepsis # Anemia due to chronic disease --> no GI bleed, s/p egd. biopsy negative --> ferritin elevated, no iron deficiency --> hgb goal is >7 --> transfuse if hgb below 7 # HCAP (healthcare-associated pneumonia) --> ID following # UTI (urinary tract infection) # Sepsis Subjective ROS Limited/Unobtainable: Yes Allergies: Coded Allergies: CODEINE (Unverified Allergy, Unknown, 01/10/17) PENICILLINS (Unverified Allergy, Unknown, 01/10/17) Subjective low grade fever, on vent Objective Last 24 Hour Vital Signs Date Time Temp Pulse Resp B/P (MAP) Pulse Ox O2 Delivery O2 Flow Rate FiO2 01/16/17 22:52 95 20 35 01/16/17 21:01 72 14 35 01/16/17 21:00 35 01/16/17 20:00 99.0 85 16 112/51 100 Mechanical Ventilator 85 01/16/17 19:40 93 24 97 Mechanical Ventilator 35 01/16/17 19:26 87 01/16/17 19:12 92 14 98 Mechanical Ventilator 35 01/16/17 19:10 86 17 35 01/16/17 16:37 94 22 35 01/16/17 16:00 35 01/16/17 16:00 90 01/16/17 16:00 99.0 98 19 121/69 99 Mechanical Ventilator 35 01/16/17 14:56 95 17 35 01/16/17 13:37 97 16 100 Mechanical Ventilator 35 01/16/17 13:32 95 19 100 Mechanical Ventilator 35 01/16/17 13:29 98 19 35 01/16/17 12:00 35 01/16/17 12:00 93 01/16/17 12:00 98.5 95 20 105/43 99 Mechanical Ventilator 35 01/16/17 11:02 104 17 35 01/16/17 08:59 93 118/60 01/16/17 08:54 98 15 35 01/16/17 08:00 35 01/16/17 08:00 90 01/16/17 08:00 99.0 90 19 118/60 99 Mechanical Ventilator 35 01/16/17 06:44 105 18 98 Mechanical Ventilator 35 01/16/17 06:38 90 21 98 Mechanical Ventilator 35 01/16/17 06:36 90 23 35 01/16/17 05:10 87 20 35 01/16/17 04:00 35 01/16/17 04:00 97.9 90 20 110/58 99 Mechanical Ventilator 35 01/16/17 03:55 91 01/16/17 02:55 96 21 35 01/16/17 00:50 95 17 98 Mechanical Ventilator 35 01/16/17 00:37 93 17 96 Mechanical Ventilator 35 01/16/17 00:36 93 17 35 01/16/17 00:00 35 01/16/17 00:00 97.0 93 18 106/47 97 Mechanical Ventilator 35 01/15/17 23:53 95 Intake and Output 01/16/17 01/17/17 19:00 07:00 Intake Total 1130 ml Output Total 865 ml Balance 265 ml Free Water 300 ml IV Total 110 ml Tube Feeding 720 ml Output Urine Total 5 ml Other 860 ml # Bowel Movements 6 2 Laboratory Tests 01/16/17 04:00: White Blood Count 18.2H, Red Blood Count 3.05L, Hemoglobin 10.2L, Hematocrit 30.1L, Mean Corpuscular Volume 99, Mean Corpuscular Hemoglobin 33.5H, Mean Corpuscular Hemoglobin Concent 34.0, Red Cell Distribution Width 13.7, Platelet Count 354, Mean Platelet Volume 8.1, Neutrophils (%) (Auto) , Lymphocytes (%) ( Auto) , Monocytes (%) (Auto) , Eosinophils (%) (Auto) , Basophils (%) (Auto) , Differential Total Cells Counted 100, Neutrophils % (Manual) 65, Lymphocytes % ( Manual) 15L, Monocytes % (Manual) 15H, Eosinophils % (Manual) 1, Basophils % ( Manual) 1, Band Neutrophils 3, Platelet Estimate Adequate, Platelet Morphology Normal, Hypochromasia 1+, Sodium Level 142, Potassium Level 4.5, Chloride Level 108H, Carbon Dioxide Level 28, Anion Gap 6, Blood Urea Nitrogen 23H, Creatinine 0.8, Estimat Glomerular Filtration Rate , Glucose Level 108H, Calcium Level 8.0L , Magnesium Level 1.9, TB Test (T-Spot) [Pending], TB Test Nil Control (T-Spot) [Pending], TB Test Panel A (T-Spot) [Pending], TB Test Panel B (T-Spot) [Pending ], TB Test Positive Control (T-Spot) [Pending] Height (Feet): 5 Height (Inches): 2.00 Weight (Pounds): 105 General Appearance: no apparent distress EENT: TMs normal Neck: normal inspection Cardiovascular: no gallop/murmur Extremities: non-tender ADDIS BLAKE Jan 16, 2017 22:59
[2017-01-17] VITALS: BP 124/47
[2017-01-17] MEDS: Vancomycin 500mg/D5W 110ml IVPB SCH ×2 (00:13)
[2017-01-17] MEDS: Albuterol/Ipratropium 3ml neb HHN SCH ×4 (00:41→19:06)
[2017-01-17 04:00] VITALS: BP 118/71
[2017-01-17 04:49] LABS: BASOPHILS % (AUTO) 1.6 % (0.0-2.0); EOSINOPHILS % (AUTO) 1.1 % (0.0-3.0); HEMATOCRIT 30.7 % (37.0-47.0); LYMPHOCYTES % (AUTO) 8.8 % (20.0-45.0); MEAN CORPUSCULAR VOLUME 99 FL (80-99); MONOCYTES % (AUTO) 12.5 % (1.0-10.0); NEUTROPHILS % (AUTO) 76.1 % (45.0-75.0); PLATELET COUNT 353 K/UL (150-450); RED CELL DISTRIBUTION WIDTH 13.4 % (11.6-14.8); WHITE BLOOD COUNT 17.9 K/UL (4.8-10.8)
[2017-01-17 05:17] LABS: ALANINE AMINOTRANSFERASE 16 U/L (12-78); ALBUMIN 1.4 G/DL (3.4-5.0); ALBUMIN/GLOBULIN RATIO 0.4 (1.0-2.7); ALKALINE PHOSPHATASE 164 U/L (46-116); ANION GAP 4 mmol/L (5-15); ASPARTATE AMINO TRANSFERASE 16 U/L (15-37); BILIRUBIN,TOTAL 0.2 MG/DL (0.2-1.0); BLOOD UREA NITROGEN 21 mg/dL (7-18); CALCIUM 8.3 MG/DL (8.5-10.1); CARBON DIOXIDE 30 MMOL/L (21-32); CHLORIDE 106 MMOL/L (98-107); CREATININE 0.8 MG/DL (0.55-1.30); POTASSIUM 4.5 MMOL/L (3.5-5.1); SODIUM 140 MMOL/L (136-145)
[2017-01-17 08:00] VITALS: BP 137/56
[2017-01-17] MEDS: Docusate 100mg/10ml Liq NG SCH (09:00)
[2017-01-17] MEDS: Ascorbic Acid 500mg tab GT SCH (09:58)
[2017-01-17] MEDS: Valproic Acid 250mg/5ml Liquid NG SCH ×2 (09:58→21:56)
[2017-01-17] MEDS: Memantine 10mg tab GT SCH (09:58)
[2017-01-17] MEDS: Pantoprazole Inj IVP SCH ×2 (09:59→21:56)
[2017-01-17 12:00] VITALS: BP 103/48
[2017-01-17 16:00] VITALS: BP 114/49
--- NOTE | 2017-01-17 16:22 | Infectious Diseases Prog Note ---
Assessment/Plan Problems: (1) HCAP (healthcare-associated pneumonia) Assessment & Plan: due to MRSA and haemophilus influenza with bilateral basal consolidation complicated with parapneumonia effusion , rule out empyema , S/P thoracentesis, await fluids results for gram stain, culture, fungal, AFB, will add adenosis deaminase, continue vancomycin , and cefepime , and monitor temperature (2) UTI (urinary tract infection) Assessment & Plan: with santhosh, less than 10 0000 colony, most likely colonization, recommend to change travis catheter , no need for antifungal (3) Sepsis Assessment & Plan: due to the above, with negative blood culture, continue wide spectrum antibiotics (4) GI bleed Assessment & Plan: monitor H/H, transfuse as needed , GI is following (5) COPD exacerbation Assessment & Plan: continue nebulizer therapy, monitor CXR (6) Open nasal wound Assessment & Plan: not deep to the nasal cavity with no necrosis , no evidenc of fungal growth , and she had previously candiduria at [facility], culture here showed candda again, most likely colonizer (7) Sacral wound Assessment & Plan: continue local wound care and off loading , consult wound care (8) Recurrent fever Assessment & Plan: rule out empyema , or atypical infection such as TB , screening with gold test is pending, no need for isolation at this point , patient is not coughing . Subjective ROS Limited/Unobtainable: Yes Allergies: Coded Allergies: CODEINE (Unverified Allergy, Unknown, 01/10/17) PENICILLINS (Unverified Allergy, Unknown, 01/10/17) Subjective she is lying in bed, alert, on mechanical ventilation through her trach, had low grade fever , open eyes spontaneously not in distress Objective Vital Signs Last 24 Hour Vital Signs Date Time Temp Pulse Resp B/P (MAP) Pulse Ox O2 Delivery O2 Flow Rate FiO2 01/17/17 14:44 75 14 35 01/17/17 13:45 85 15 97 Mechanical Ventilator 35 01/17/17 13:44 85 15 35 01/17/17 13:26 93 18 98 Mechanical Ventilator 35 01/17/17 12:22 74 01/17/17 12:00 35 01/17/17 12:00 97.9 80 20 103/48 96 Mechanical Ventilator 35 01/17/17 11:02 84 17 35 01/17/17 09:58 76 137/56 11/4/17 09:23 76 17 35 01/17/17 08:06 80 01/17/17 08:00 97.9 96 25 137/56 97 Mechanical Ventilator 35 01/17/17 08:00 35 01/17/17 07:36 84 15 98 Mechanical Ventilator 35 01/17/17 07:26 80 14 98 Mechanical Ventilator 35 01/17/17 07:16 80 14 35 01/17/17 05:00 87 20 35 01/17/17 04:00 96.6 89 20 118/71 99 Mechanical Ventilator 89 01/17/17 04:00 35 01/17/17 03:51 82 01/17/17 02:49 89 17 35 01/17/17 00:54 89 28 35 01/17/17 00:54 85 24 98 Mechanical Ventilator 35 01/17/17 00:40 79 13 96 Mechanical Ventilator 35 01/17/17 00:00 97.9 92 22 124/47 100 Mechanical Ventilator 92 01/17/17 00:00 35 01/16/17 23:41 119 01/16/17 22:52 95 20 35 01/16/17 21:01 72 14 35 01/16/17 21:00 35 01/16/17 20:00 99.0 85 16 112/51 100 Mechanical Ventilator 85 01/16/17 19:40 93 24 97 Mechanical Ventilator 35 01/16/17 19:26 87 01/16/17 19:12 92 14 98 Mechanical Ventilator 35 01/16/17 19:10 86 17 35 01/16/17 16:37 94 22 35 Height (Feet): 5 Height (Inches): 2.00 Weight (Pounds): 105 General Appearance: WD/WN, no acute distress, cachetic HEENT: normocephalic, atraumatic, anicteric, mucous membranes moist Respiratory/Chest: chest wall non-tender, lungs clear, normal breath sounds, no respiratory distress, no accessory muscle use Cardiovascular: normal peripheral pulses, normal rate, regular rhythm, no gallop/murmur, no JVD Abdomen: normal bowel sounds, soft, non tender, no organomegaly, non distended , no mass, no scars Extremities: no cyanosis, no clubbing Skin: no rash, no lesions, ulcers Neurologic/Psychiatric: alert Lymphatic: no neck adenopathy, no groin adenopathy Laboratory Tests Test 01/16/17 16:30 01/17/17 03:39 Body Fluid Source Pending Body Fluid Volume Pending Body Fluid Appearance Cloudy Body Fluid RBC 381 /CUMM Body Fluid Total Nucleated Cells 928 /CUMM Body Fluid Polynuclear WBCs (%) 60 % Body Fluid Mononuclear WBCs (%) 30 % Body Fluid Mesothelial Cells (%) 10 % Body Fluid Glucose Pending Body Fluid Total Protein Pending Body Fluid Lactate Dehydrogenase Pending White Blood Count 17.9 K/UL (4.8-10.8) H Red Blood Count 3.10 M/UL (4.20-5.40) L Hemoglobin 10.0 G/DL (12.0-16.0) L Hematocrit 30.7 % (37.0-47.0) L Mean Corpuscular Volume 99 FL (80-99) Mean Corpuscular Hemoglobin 32.2 PG (27.0-31.0) H Mean Corpuscular Hemoglobin Concent 32.5 G/DL (32.0-36.0) Red Cell Distribution Width 13.4 % (11.6-14.8) Platelet Count 353 K/UL (150-450) Mean Platelet Volume 7.9 FL (6.5-10.1) Neutrophils (%) (Auto) 76.1 % (45.0-75.0) H Lymphocytes (%) (Auto) 8.8 % (20.0-45.0) L Monocytes (%) (Auto) 12.5 % (1.0-10.0) H Eosinophils (%) (Auto) 1.1 % (0.0-3.0) Basophils (%) (Auto) 1.6 % (0.0-2.0) Sodium Level 140 MMOL/L (136-145) Potassium Level 4.5 MMOL/L (3.5-5.1) Chloride Level 106 MMOL/L (98-107) Carbon Dioxide Level 30 MMOL/L (21-32) Anion Gap 4 mmol/L (5-15) L Blood Urea Nitrogen 21 mg/dL (7-18) H Creatinine 0.8 MG/DL (0.55-1.30) Estimat Glomerular Filtration Rate mL/min (>60) Glucose Level 100 MG/DL (74-106) Calcium Level 8.3 MG/DL (8.5-10.1) L Total Bilirubin 0.2 MG/DL (0.2-1.0) Aspartate Amino Transf (AST/SGOT) 16 U/L (15-37) Alanine Aminotransferase (ALT/SGPT) 16 U/L (12-78) Alkaline Phosphatase 164 U/L (46-116) H Total Protein 5.2 G/DL (6.4-8.2) L Albumin 1.4 G/DL (3.4-5.0) L Globulin 3.8 g/dL Albumin/Globulin Ratio 0.4 (1.0-2.7) L Current Medications Medications (Trade) Dose Ordered Sig/Sky Route PRN Reason Start Time Stop Time Status Last Admin Dose Admin Acetaminophen (Tylenol) 650 mg Q6H PRN GT Mild Pain/Temp > 100.5 01/16/17 11:45 02/09/17 17:59 Acetylcysteine (Mucomyst) 200 mg Q6HRT INH 01/17/17 19:00 02/16/17 17:59 Albuterol/ Ipratropium (Albuterol/ Ipratropium) 3 ml Q6HRT HHN 01/17/17 01:00 01/22/17 00:59 01/17/17 13:23 Amlodipine Besylate (Norvasc) 2.5 mg DAILY GT 01/11/17 09:00 02/10/17 08:59 01/17/17 09:58 Ascorbic Acid (Vitamin C) 500 mg DAILY GT 01/11/17 09:00 02/10/17 08:59 01/17/17 09:58 Cefepime HCl 2 gm/ Dextrose 110 ml @ 220 mls/hr Q24H IVPB 01/15/17 17:00 01/22/17 16:59 01/16/17 16:59 Dextrose (Dextrose 50%) STAT PRN IV Hypoglycemia 01/10/17 14:45 02/09/17 14:44 Docusate Sodium (Colace) 250 mg DAILY NG 01/11/17 09:00 02/10/17 08:59 01/14/17 09:00 Memantine (Namenda) 10 mg DAILY GT 01/11/17 09:00 02/10/17 08:59 01/17/17 09:58 Ondansetron HCl (Zofran) 4 mg Q6H PRN IVP Nausea & Vomiting 01/10/17 14:45 02/09/17 14:44 Pantoprazole (Protonix) 40 mg EVERY 12 HOURS IVP 01/11/17 09:00 02/10/17 08:59 01/17/17 09:59 Polyethylene Glycol (Miralax) 17 gm BEDTIME GT 01/16/17 21:00 02/12/17 20:59 Risperidone (RisperDAL) 1 mg QHS GT 01/10/17 21:00 02/09/17 20:59 01/16/17 21:55 Valproic Acid (Depakene) 125 mg EVERY 12 HOURS NG 01/15/17 21:00 02/14/17 20:59 01/17/17 09:58 Vancomycin HCl (Vanco rx to dose) 1 ea DAILY PRN MISC Per rx protocol 01/10/17 12:15 02/09/17 12:14 Vancomycin HCl 500 mg/Dextrose 110 ml @ 110 mls/hr Q24H IVPB 01/15/17 00:00 01/19/17 23:59 01/17/17 00:13 Shankar Qiu M.D. Jan 17, 2017 16:22
[2017-01-17] MEDS: Cefepime HCl 2 GM in D5W 110 ML IVPB SCH (17:03)
[2017-01-17] MEDS ORDERED: NS 275ml ONE ×2 (17:28→17:41)
[2017-01-17] MEDS: Acetylcysteine 20% Soln 4ml INH SCH (19:06)
[2017-01-17 20:00] VITALS: BP 103/52
--- NOTE | 2017-01-17 21:03 | Pulmonology Progress Note ---
Assessment/Plan Assessment/Plan Assessment/Plan 1. Ventilator-dependent respiratory failure. 2. Chronic pneumonia, possible underlying congestive heart failure. 3. Urinary tract infection. 4. Sepsis. 5. Hypertension. 6. Diabetes. 7. Large bilateral effusions on CT thoracentesis pending consent by conservator CT w infiltrates and effusions WBC remains elevated no weaning and cont vent support CXR thursday nebs and suction abx per ID disc w RN Subjective ROS Limited/Unobtainable: Yes Allergies: Coded Allergies: CODEINE (Unverified Allergy, Unknown, 01/10/17) PENICILLINS (Unverified Allergy, Unknown, 01/10/17) Subjective seen and examined on the vent no bleeding tolerating TF no fever noted no repsonse to me Objective Last 24 Hour Vital Signs Date Time Temp Pulse Resp B/P (MAP) Pulse Ox O2 Delivery O2 Flow Rate FiO2 01/17/17 19:15 92 20 98 Mechanical Ventilator 35 01/17/17 19:06 91 20 98 Mechanical Ventilator 35 01/17/17 19:04 91 26 35 01/17/17 18:16 79 19 35 01/17/17 16:00 97.9 87 22 114/49 98 Mechanical Ventilator 35 01/17/17 16:00 69 01/17/17 16:00 35 01/17/17 14:44 75 14 35 01/17/17 13:45 85 15 97 Mechanical Ventilator 35 01/17/17 13:44 85 15 35 01/17/17 13:26 93 18 98 Mechanical Ventilator 35 01/17/17 12:22 74 01/17/17 12:00 35 01/17/17 12:00 97.9 80 20 103/48 96 Mechanical Ventilator 35 01/17/17 11:02 84 17 35 01/17/17 09:58 76 137/56 01/17/17 09:23 76 17 35 01/17/17 08:06 80 01/17/17 08:00 97.9 96 25 137/56 97 Mechanical Ventilator 35 01/17/17 08:00 35 01/17/17 07:36 84 15 98 Mechanical Ventilator 35 01/17/17 07:26 80 14 98 Mechanical Ventilator 35 01/17/17 07:16 80 14 35 01/17/17 05:00 87 20 35 01/17/17 04:00 96.6 89 20 118/71 99 Mechanical Ventilator 89 01/17/17 04:00 35 01/17/17 03:51 82 01/17/17 02:49 89 17 35 01/17/17 00:54 89 28 35 01/17/17 00:54 85 24 98 Mechanical Ventilator 35 01/17/17 00:40 79 13 96 Mechanical Ventilator 35 01/17/17 00:00 97.9 92 22 124/47 100 Mechanical Ventilator 92 01/17/17 00:00 35 01/16/17 23:41 119 01/16/17 22:52 95 20 35 Intake and Output 01/17/17 01/18/17 19:00 07:00 Intake Total 970 ml Balance 970 ml Free Water 250 ml Tube Feeding 720 ml # Bowel Movements 3 General Appearance: cachetic HEENT: other - race Respiratory/Chest: rhonchi Cardiovascular: normal rate, regular rhythm, murmur systolic Abdomen: soft, non tender, no organomegaly Neurologic/Psychiatric: disoriented Lymphatic: no neck adenopathy Laboratory Tests 01/17/17 03:39: White Blood Count 17.9H, Red Blood Count 3.10L, Hemoglobin 10.0L, Hematocrit 30.7L, Mean Corpuscular Volume 99, Mean Corpuscular Hemoglobin 32.2H, Mean Corpuscular Hemoglobin Concent 32.5, Red Cell Distribution Width 13.4, Platelet Count 353, Mean Platelet Volume 7.9, Neutrophils (%) (Auto) 76.1H, Lymphocytes ( %) (Auto) 8.8L, Monocytes (%) (Auto) 12.5H, Eosinophils (%) (Auto) 1.1, Basophils (%) (Auto) 1.6, Sodium Level 140, Potassium Level 4.5, Chloride Level 106, Carbon Dioxide Level 30, Anion Gap 4L, Blood Urea Nitrogen 21H, Creatinine 0.8, Estimat Glomerular Filtration Rate , Glucose Level 100, Calcium Level 8.3L , Total Bilirubin 0.2, Aspartate Amino Transf (AST/SGOT) 16, Alanine Aminotransferase (ALT/SGPT) 16, Alkaline Phosphatase 164H, Total Protein 5.2L, Albumin 1.4L, Globulin 3.8, Albumin/Globulin Ratio 0.4L Current Medications Medications (Trade) Dose Ordered Sig/Sky Route PRN Reason Start Time Stop Time Status Last Admin Dose Admin Acetaminophen (Tylenol) 650 mg Q6H PRN GT Mild Pain/Temp > 100.5 01/16/17 11:45 02/09/17 17:59 Acetylcysteine (Mucomyst) 200 mg Q6HRT INH 01/17/17 19:00 02/16/17 17:59 01/17/17 19:06 Albuterol/ Ipratropium (Albuterol/ Ipratropium) 3 ml Q6HRT HHN 01/17/17 01:00 01/22/17 00:59 01/17/17 19:06 Amlodipine Besylate (Norvasc) 2.5 mg DAILY GT 01/11/17 09:00 02/10/17 08:59 01/17/17 09:58 Ascorbic Acid (Vitamin C) 500 mg DAILY GT 01/11/17 09:00 02/10/17 08:59 01/17/17 09:58 Cefepime HCl 2 gm/ Dextrose 110 ml @ 220 mls/hr Q24H IVPB 01/15/17 17:00 01/22/17 16:59 01/17/17 17:03 Dextrose (Dextrose 50%) STAT PRN IV Hypoglycemia 01/10/17 14:45 02/09/17 14:44 Docusate Sodium (Colace) 250 mg DAILY NG 01/11/17 09:00 02/10/17 08:59 01/14/17 09:00 Memantine (Namenda) 10 mg DAILY GT 01/11/17 09:00 02/10/17 08:59 01/17/17 09:58 Ondansetron HCl (Zofran) 4 mg Q6H PRN IVP Nausea & Vomiting 01/10/17 14:45 02/09/17 14:44 Pantoprazole (Protonix) 40 mg EVERY 12 HOURS IVP 01/11/17 09:00 02/10/17 08:59 01/17/17 09:59 Polyethylene Glycol (Miralax) 17 gm BEDTIME GT 01/16/17 21:00 02/12/17 20:59 Risperidone (RisperDAL) 1 mg QHS GT 01/10/17 21:00 02/09/17 20:59 01/16/17 21:55 Valproic Acid (Depakene) 125 mg EVERY 12 HOURS NG 01/15/17 21:00 02/14/17 20:59 01/17/17 09:58 Vancomycin HCl (Vanco rx to dose) 1 ea DAILY PRN MISC Per rx protocol 01/10/17 12:15 02/09/17 12:14 Vancomycin HCl 500 mg/Dextrose 110 ml @ 110 mls/hr Q24H IVPB 01/15/17 00:00 01/19/17 23:59 01/17/17 00:13 MATILDA DIAL DO Jan 17, 2017 21:03
--- NOTE | 2017-01-17 21:13 | General Progress Note ---
Assessment/Plan Problem List: (1) GI bleed ICD Codes: K92.2 - Gastrointestinal hemorrhage, unspecified SNOMED: 32154046 (2) Sepsis ICD Codes: A41.9 - Sepsis, unspecified organism SNOMED: 03558707 (3) HCAP (healthcare-associated pneumonia) ICD Codes: J18.9 - Pneumonia, unspecified organism SNOMED: 130262412 (4) UTI (urinary tract infection) ICD Codes: N39.0 - Urinary tract infection, site not specified SNOMED: 91725289 Status: progressing Assessment/Plan sepsis stablizing reviewed chart intermittent fever trach and peg pleural effusion s/p thoracocentesis Subjective ROS Limited/Unobtainable: Yes Constitutional: Reports: no symptoms Allergies: Coded Allergies: CODEINE (Unverified Allergy, Unknown, 01/10/17) PENICILLINS (Unverified Allergy, Unknown, 01/10/17) Objective Last 24 Hour Vital Signs Date Time Temp Pulse Resp B/P (MAP) Pulse Ox O2 Delivery O2 Flow Rate FiO2 01/17/17 21:03 74 10 35 01/17/17 19:15 92 20 98 Mechanical Ventilator 35 01/17/17 19:06 91 20 98 Mechanical Ventilator 35 01/17/17 19:04 91 26 35 01/17/17 18:16 79 19 35 01/17/17 16:00 97.9 87 22 114/49 98 Mechanical Ventilator 35 01/17/17 16:00 69 01/17/17 16:00 35 01/17/17 14:44 75 14 35 01/17/17 13:45 85 15 97 Mechanical Ventilator 35 01/17/17 13:44 85 15 35 01/17/17 13:26 93 18 98 Mechanical Ventilator 35 01/17/17 12:22 74 01/17/17 12:00 35 01/17/17 12:00 97.9 80 20 103/48 96 Mechanical Ventilator 35 01/17/17 11:02 84 17 35 01/17/17 09:58 76 137/56 01/17/17 09:23 76 17 35 01/17/17 08:06 80 01/17/17 08:00 97.9 96 25 137/56 97 Mechanical Ventilator 35 01/17/17 08:00 35 01/17/17 07:36 84 15 98 Mechanical Ventilator 35 01/17/17 07:26 80 14 98 Mechanical Ventilator 35 01/17/17 07:16 80 14 35 01/17/17 05:00 87 20 35 01/17/17 04:00 96.6 89 20 118/71 99 Mechanical Ventilator 89 01/17/17 04:00 35 01/17/17 03:51 82 01/17/17 02:49 89 17 35 01/17/17 00:54 89 28 35 01/17/17 00:54 85 24 98 Mechanical Ventilator 35 01/17/17 00:40 79 13 96 Mechanical Ventilator 35 01/17/17 00:00 97.9 92 22 124/47 100 Mechanical Ventilator 92 01/17/17 00:00 35 01/16/17 23:41 119 01/16/17 22:52 95 20 35 Intake and Output 01/17/17 01/18/17 19:00 07:00 Intake Total 970 ml Balance 970 ml Free Water 250 ml Tube Feeding 720 ml # Bowel Movements 3 Laboratory Tests 01/17/17 03:39: White Blood Count 17.9H, Red Blood Count 3.10L, Hemoglobin 10.0L, Hematocrit 30.7L, Mean Corpuscular Volume 99, Mean Corpuscular Hemoglobin 32.2H, Mean Corpuscular Hemoglobin Concent 32.5, Red Cell Distribution Width 13.4, Platelet Count 353, Mean Platelet Volume 7.9, Neutrophils (%) (Auto) 76.1H, Lymphocytes ( %) (Auto) 8.8L, Monocytes (%) (Auto) 12.5H, Eosinophils (%) (Auto) 1.1, Basophils (%) (Auto) 1.6, Sodium Level 140, Potassium Level 4.5, Chloride Level 106, Carbon Dioxide Level 30, Anion Gap 4L, Blood Urea Nitrogen 21H, Creatinine 0.8, Estimat Glomerular Filtration Rate , Glucose Level 100, Calcium Level 8.3L , Total Bilirubin 0.2, Aspartate Amino Transf (AST/SGOT) 16, Alanine Aminotransferase (ALT/SGPT) 16, Alkaline Phosphatase 164H, Total Protein 5.2L, Albumin 1.4L, Globulin 3.8, Albumin/Globulin Ratio 0.4L Height (Feet): 5 Height (Inches): 2.00 Weight (Pounds): 105 General Appearance: confused Abdomen: non tender Fernandez Gomez MD Jan 17, 2017 21:13
--- NOTE | 2017-01-17 21:13 | General Progress Note ---
Assessment/Plan Assessment/Plan Assessment/Plan # Leukocytosis 2/2 sepsis # Anemia due to chronic disease --> HH improved --> no GI bleed, s/p egd. biopsy negative --> ferritin elevated, no iron deficiency --> hgb goal is >7 --> transfuse if hgb below 7 # HCAP (healthcare-associated pneumonia) --> ID following # UTI (urinary tract infection) # Sepsis Subjective ROS Limited/Unobtainable: Yes Allergies: Coded Allergies: CODEINE (Unverified Allergy, Unknown, 01/10/17) PENICILLINS (Unverified Allergy, Unknown, 01/10/17) Subjective on vent Objective Last 24 Hour Vital Signs Date Time Temp Pulse Resp B/P (MAP) Pulse Ox O2 Delivery O2 Flow Rate FiO2 01/17/17 21:03 74 10 35 01/17/17 19:15 92 20 98 Mechanical Ventilator 35 01/17/17 19:06 91 20 98 Mechanical Ventilator 35 01/17/17 19:04 91 26 35 01/17/17 18:16 79 19 35 01/17/17 16:00 97.9 87 22 114/49 98 Mechanical Ventilator 35 01/17/17 16:00 69 01/17/17 16:00 35 01/17/17 14:44 75 14 35 01/17/17 13:45 85 15 97 Mechanical Ventilator 35 01/17/17 13:44 85 15 35 01/17/17 13:26 93 18 98 Mechanical Ventilator 35 01/17/17 12:22 74 01/17/17 12:00 35 01/17/17 12:00 97.9 80 20 103/48 96 Mechanical Ventilator 35 01/17/17 11:02 84 17 35 01/17/17 09:58 76 137/56 01/17/17 09:23 76 17 35 01/17/17 08:06 80 01/17/17 08:00 97.9 96 25 137/56 97 Mechanical Ventilator 35 01/17/17 08:00 35 01/17/17 07:36 84 15 98 Mechanical Ventilator 35 01/17/17 07:26 80 14 98 Mechanical Ventilator 35 01/17/17 07:16 80 14 35 01/17/17 05:00 87 20 35 01/17/17 04:00 96.6 89 20 118/71 99 Mechanical Ventilator 89 01/17/17 04:00 35 01/17/17 03:51 82 01/17/17 02:49 89 17 35 01/17/17 00:54 89 28 35 01/17/17 00:54 85 24 98 Mechanical Ventilator 35 01/17/17 00:40 79 13 96 Mechanical Ventilator 35 01/17/17 00:00 97.9 92 22 124/47 100 Mechanical Ventilator 92 01/17/17 00:00 35 01/16/17 23:41 119 01/16/17 22:52 95 20 35 Intake and Output 01/17/17 01/18/17 19:00 07:00 Intake Total 970 ml Balance 970 ml Free Water 250 ml Tube Feeding 720 ml # Bowel Movements 3 Laboratory Tests 01/17/17 03:39: White Blood Count 17.9H, Red Blood Count 3.10L, Hemoglobin 10.0L, Hematocrit 30.7L, Mean Corpuscular Volume 99, Mean Corpuscular Hemoglobin 32.2H, Mean Corpuscular Hemoglobin Concent 32.5, Red Cell Distribution Width 13.4, Platelet Count 353, Mean Platelet Volume 7.9, Neutrophils (%) (Auto) 76.1H, Lymphocytes ( %) (Auto) 8.8L, Monocytes (%) (Auto) 12.5H, Eosinophils (%) (Auto) 1.1, Basophils (%) (Auto) 1.6, Sodium Level 140, Potassium Level 4.5, Chloride Level 106, Carbon Dioxide Level 30, Anion Gap 4L, Blood Urea Nitrogen 21H, Creatinine 0.8, Estimat Glomerular Filtration Rate , Glucose Level 100, Calcium Level 8.3L , Total Bilirubin 0.2, Aspartate Amino Transf (AST/SGOT) 16, Alanine Aminotransferase (ALT/SGPT) 16, Alkaline Phosphatase 164H, Total Protein 5.2L, Albumin 1.4L, Globulin 3.8, Albumin/Globulin Ratio 0.4L Height (Feet): 5 Height (Inches): 2.00 Weight (Pounds): 105 General Appearance: no apparent distress EENT: normal ENT inspection Neck: normal inspection Abdomen: soft Skin: warm/dry ADDIS BLAKE Jan 17, 2017 21:13
--- NOTE | 2017-01-17 21:13 | General Progress Note ---
Assessment/Plan Problem List: (1) GI bleed ICD Codes: K92.2 - Gastrointestinal hemorrhage, unspecified SNOMED: 61707877 (2) Sepsis ICD Codes: A41.9 - Sepsis, unspecified organism SNOMED: 37320338 (3) HCAP (healthcare-associated pneumonia) ICD Codes: J18.9 - Pneumonia, unspecified organism SNOMED: 367218723 (4) UTI (urinary tract infection) ICD Codes: N39.0 - Urinary tract infection, site not specified SNOMED: 42857089 Status: progressing Assessment/Plan sepsis stablizing reviewed chart intermittent fever trach and peg pleural effusion s/p thoracocentesis Subjective ROS Limited/Unobtainable: Yes Constitutional: Reports: no symptoms Allergies: Coded Allergies: CODEINE (Unverified Allergy, Unknown, 01/10/17) PENICILLINS (Unverified Allergy, Unknown, 01/10/17) Objective Last 24 Hour Vital Signs Date Time Temp Pulse Resp B/P (MAP) Pulse Ox O2 Delivery O2 Flow Rate FiO2 01/17/17 21:03 74 10 35 01/17/17 19:15 92 20 98 Mechanical Ventilator 35 01/17/17 19:06 91 20 98 Mechanical Ventilator 35 01/17/17 19:04 91 26 35 01/17/17 18:16 79 19 35 01/17/17 16:00 97.9 87 22 114/49 98 Mechanical Ventilator 35 01/17/17 16:00 69 01/17/17 16:00 35 01/17/17 14:44 75 14 35 01/17/17 13:45 85 15 97 Mechanical Ventilator 35 01/17/17 13:44 85 15 35 01/17/17 13:26 93 18 98 Mechanical Ventilator 35 01/17/17 12:22 74 01/17/17 12:00 35 01/17/17 12:00 97.9 80 20 103/48 96 Mechanical Ventilator 35 01/17/17 11:02 84 17 35 01/17/17 09:58 76 137/56 01/17/17 09:23 76 17 35 01/17/17 08:06 80 01/17/17 08:00 97.9 96 25 137/56 97 Mechanical Ventilator 35 01/17/17 08:00 35 01/17/17 07:36 84 15 98 Mechanical Ventilator 35 01/17/17 07:26 80 14 98 Mechanical Ventilator 35 01/17/17 07:16 80 14 35 01/17/17 05:00 87 20 35 01/17/17 04:00 96.6 89 20 118/71 99 Mechanical Ventilator 89 01/17/17 04:00 35 01/17/17 03:51 82 01/17/17 02:49 89 17 35 01/17/17 00:54 89 28 35 01/17/17 00:54 85 24 98 Mechanical Ventilator 35 01/17/17 00:40 79 13 96 Mechanical Ventilator 35 01/17/17 00:00 97.9 92 22 124/47 100 Mechanical Ventilator 92 01/17/17 00:00 35 01/16/17 23:41 119 01/16/17 22:52 95 20 35 Intake and Output 01/17/17 01/18/17 19:00 07:00 Intake Total 970 ml Balance 970 ml Free Water 250 ml Tube Feeding 720 ml # Bowel Movements 3 Laboratory Tests 01/17/17 03:39: White Blood Count 17.9H, Red Blood Count 3.10L, Hemoglobin 10.0L, Hematocrit 30.7L, Mean Corpuscular Volume 99, Mean Corpuscular Hemoglobin 32.2H, Mean Corpuscular Hemoglobin Concent 32.5, Red Cell Distribution Width 13.4, Platelet Count 353, Mean Platelet Volume 7.9, Neutrophils (%) (Auto) 76.1H, Lymphocytes ( %) (Auto) 8.8L, Monocytes (%) (Auto) 12.5H, Eosinophils (%) (Auto) 1.1, Basophils (%) (Auto) 1.6, Sodium Level 140, Potassium Level 4.5, Chloride Level 106, Carbon Dioxide Level 30, Anion Gap 4L, Blood Urea Nitrogen 21H, Creatinine 0.8, Estimat Glomerular Filtration Rate , Glucose Level 100, Calcium Level 8.3L , Total Bilirubin 0.2, Aspartate Amino Transf (AST/SGOT) 16, Alanine Aminotransferase (ALT/SGPT) 16, Alkaline Phosphatase 164H, Total Protein 5.2L, Albumin 1.4L, Globulin 3.8, Albumin/Globulin Ratio 0.4L Height (Feet): 5 Height (Inches): 2.00 Weight (Pounds): 105 General Appearance: confused Abdomen: non tender Fernandez Gomez MD Jan 17, 2017 21:13
--- NOTE | 2017-01-17 21:13 | General Progress Note ---
Assessment/Plan Problem List: (1) GI bleed ICD Codes: K92.2 - Gastrointestinal hemorrhage, unspecified SNOMED: 26207475 (2) Sepsis ICD Codes: A41.9 - Sepsis, unspecified organism SNOMED: 07783074 (3) HCAP (healthcare-associated pneumonia) ICD Codes: J18.9 - Pneumonia, unspecified organism SNOMED: 451441794 (4) UTI (urinary tract infection) ICD Codes: N39.0 - Urinary tract infection, site not specified SNOMED: 77290849 Status: progressing Assessment/Plan sepsis stablizing reviewed chart intermittent fever trach and peg pleural effusion s/p thoracocentesis Subjective ROS Limited/Unobtainable: Yes Constitutional: Reports: no symptoms Allergies: Coded Allergies: CODEINE (Unverified Allergy, Unknown, 01/10/17) PENICILLINS (Unverified Allergy, Unknown, 01/10/17) Objective Last 24 Hour Vital Signs Date Time Temp Pulse Resp B/P (MAP) Pulse Ox O2 Delivery O2 Flow Rate FiO2 01/17/17 21:03 74 10 35 01/17/17 19:15 92 20 98 Mechanical Ventilator 35 01/17/17 19:06 91 20 98 Mechanical Ventilator 35 01/17/17 19:04 91 26 35 01/17/17 18:16 79 19 35 01/17/17 16:00 97.9 87 22 114/49 98 Mechanical Ventilator 35 01/17/17 16:00 69 01/17/17 16:00 35 01/17/17 14:44 75 14 35 01/17/17 13:45 85 15 97 Mechanical Ventilator 35 01/17/17 13:44 85 15 35 01/17/17 13:26 93 18 98 Mechanical Ventilator 35 01/17/17 12:22 74 01/17/17 12:00 35 01/17/17 12:00 97.9 80 20 103/48 96 Mechanical Ventilator 35 01/17/17 11:02 84 17 35 01/17/17 09:58 76 137/56 01/17/17 09:23 76 17 35 01/17/17 08:06 80 01/17/17 08:00 97.9 96 25 137/56 97 Mechanical Ventilator 35 01/17/17 08:00 35 01/17/17 07:36 84 15 98 Mechanical Ventilator 35 01/17/17 07:26 80 14 98 Mechanical Ventilator 35 01/17/17 07:16 80 14 35 01/17/17 05:00 87 20 35 01/17/17 04:00 96.6 89 20 118/71 99 Mechanical Ventilator 89 01/17/17 04:00 35 01/17/17 03:51 82 01/17/17 02:49 89 17 35 01/17/17 00:54 89 28 35 01/17/17 00:54 85 24 98 Mechanical Ventilator 35 01/17/17 00:40 79 13 96 Mechanical Ventilator 35 01/17/17 00:00 97.9 92 22 124/47 100 Mechanical Ventilator 92 01/17/17 00:00 35 01/16/17 23:41 119 01/16/17 22:52 95 20 35 Intake and Output 01/17/17 01/18/17 19:00 07:00 Intake Total 970 ml Balance 970 ml Free Water 250 ml Tube Feeding 720 ml # Bowel Movements 3 Laboratory Tests 01/17/17 03:39: White Blood Count 17.9H, Red Blood Count 3.10L, Hemoglobin 10.0L, Hematocrit 30.7L, Mean Corpuscular Volume 99, Mean Corpuscular Hemoglobin 32.2H, Mean Corpuscular Hemoglobin Concent 32.5, Red Cell Distribution Width 13.4, Platelet Count 353, Mean Platelet Volume 7.9, Neutrophils (%) (Auto) 76.1H, Lymphocytes ( %) (Auto) 8.8L, Monocytes (%) (Auto) 12.5H, Eosinophils (%) (Auto) 1.1, Basophils (%) (Auto) 1.6, Sodium Level 140, Potassium Level 4.5, Chloride Level 106, Carbon Dioxide Level 30, Anion Gap 4L, Blood Urea Nitrogen 21H, Creatinine 0.8, Estimat Glomerular Filtration Rate , Glucose Level 100, Calcium Level 8.3L , Total Bilirubin 0.2, Aspartate Amino Transf (AST/SGOT) 16, Alanine Aminotransferase (ALT/SGPT) 16, Alkaline Phosphatase 164H, Total Protein 5.2L, Albumin 1.4L, Globulin 3.8, Albumin/Globulin Ratio 0.4L Height (Feet): 5 Height (Inches): 2.00 Weight (Pounds): 105 General Appearance: confused Abdomen: non tender Fernandez Gomez MD Jan 17, 2017 21:13
[2017-01-17] MEDS: Miralax 17gm pkt GT SCH (21:55)
[2017-01-18] VITALS: BP 94/43
[2017-01-18] MEDS: Vancomycin 500mg/D5W 110ml IVPB SCH ×2 (00:58)
[2017-01-18] MEDS: Albuterol/Ipratropium 3ml neb HHN SCH ×4 (01:20→19:33)
[2017-01-18] MEDS: Acetylcysteine 20% Soln 4ml INH SCH ×4 (01:20→19:57)
[2017-01-18 04:00] VITALS: BP 100/50
--- NOTE | 2017-01-18 07:28 | Pulmonology Progress Note ---
Assessment/Plan Assessment/Plan Assessment/Plan 1. Ventilator-dependent respiratory failure. 2. Chronic pneumonia, possible underlying congestive heart failure. 3. Urinary tract infection. 4. Sepsis. 5. Hypertension. 6. Diabetes. 7. Large bilateral effusions on CT thoracentesis pending consent by conservator CT w infiltrates and effusions WBC remains elevated on 01/17 no weaning and cont vent support CXR thursday nebs and suction abx per ID disc w RN Subjective ROS Limited/Unobtainable: Yes Allergies: Coded Allergies: CODEINE (Unverified Allergy, Unknown, 01/10/17) PENICILLINS (Unverified Allergy, Unknown, 01/10/17) Subjective seen and examined on the vent no bleeding tolerating TF no fever noted no response to me Objective Last 24 Hour Vital Signs Date Time Temp Pulse Resp B/P (MAP) Pulse Ox O2 Delivery O2 Flow Rate FiO2 01/18/17 07:12 83 11 99 Mechanical Ventilator 35 01/18/17 07:06 85 19 35 01/18/17 07:05 87 12 99 Mechanical Ventilator 35 01/18/17 05:00 84 22 35 01/18/17 04:00 35 01/18/17 04:00 98.2 85 21 100/50 97 Mechanical Ventilator 35 01/18/17 03:35 83 01/18/17 03:21 88 23 35 01/18/17 01:28 94 20 98 Mechanical Ventilator 35 01/18/17 01:20 96 13 98 Mechanical Ventilator 35 01/18/17 01:15 96 20 35 01/18/17 01:00 73 01/18/17 00:00 98.2 81 23 94/43 98 Mechanical Ventilator 35 01/17/17 23:27 95 20 35 01/17/17 21:03 74 10 35 01/17/17 21:00 35 01/17/17 20:00 99.0 79 10 103/52 100 Mechanical Ventilator 35 01/17/17 19:28 80 01/17/17 19:15 92 20 98 Mechanical Ventilator 35 01/17/17 19:06 91 20 98 Mechanical Ventilator 35 01/17/17 19:04 91 26 35 01/17/17 18:16 79 19 35 01/17/17 16:00 97.9 87 22 114/49 98 Mechanical Ventilator 35 01/17/17 16:00 69 01/17/17 16:00 35 01/17/17 14:44 75 14 35 01/17/17 13:45 85 15 97 Mechanical Ventilator 35 01/17/17 13:44 85 15 35 01/17/17 13:26 93 18 98 Mechanical Ventilator 35 01/17/17 12:22 74 01/17/17 12:00 35 01/17/17 12:00 97.9 80 20 103/48 96 Mechanical Ventilator 35 01/17/17 11:02 84 17 35 01/17/17 09:58 76 137/56 01/17/17 09:23 76 17 35 01/17/17 08:06 80 01/17/17 08:00 97.9 96 25 137/56 97 Mechanical Ventilator 35 01/17/17 08:00 35 01/17/17 07:36 84 15 98 Mechanical Ventilator 35 General Appearance: cachetic HEENT: atraumatic, anicteric Respiratory/Chest: rhonchi Cardiovascular: normal rate, regular rhythm Abdomen: non distended, no mass Neurologic/Psychiatric: disoriented Current Medications Medications (Trade) Dose Ordered Sig/Sky Route PRN Reason Start Time Stop Time Status Last Admin Dose Admin Acetaminophen (Tylenol) 650 mg Q6H PRN GT Mild Pain/Temp > 100.5 01/16/17 11:45 02/09/17 17:59 Acetylcysteine (Mucomyst) 200 mg Q6HRT INH 01/17/17 19:00 02/16/17 17:59 01/18/17 07:06 Albuterol/ Ipratropium (Albuterol/ Ipratropium) 3 ml Q6HRT HHN 01/17/17 01:00 01/22/17 00:59 01/18/17 07:06 Amlodipine Besylate (Norvasc) 2.5 mg DAILY GT 01/11/17 09:00 02/10/17 08:59 01/17/17 09:58 Ascorbic Acid (Vitamin C) 500 mg DAILY GT 01/11/17 09:00 02/10/17 08:59 01/17/17 09:58 Cefepime HCl 2 gm/ Dextrose 110 ml @ 220 mls/hr Q24H IVPB 01/15/17 17:00 01/22/17 16:59 01/17/17 17:03 Dextrose (Dextrose 50%) STAT PRN IV Hypoglycemia 01/10/17 14:45 02/09/17 14:44 Docusate Sodium (Colace) 250 mg DAILY NG 01/11/17 09:00 02/10/17 08:59 01/14/17 09:00 Memantine (Namenda) 10 mg DAILY GT 01/11/17 09:00 02/10/17 08:59 01/17/17 09:58 Ondansetron HCl (Zofran) 4 mg Q6H PRN IVP Nausea & Vomiting 01/10/17 14:45 02/09/17 14:44 Pantoprazole (Protonix) 40 mg EVERY 12 HOURS IVP 01/11/17 09:00 02/10/17 08:59 01/17/17 21:56 Polyethylene Glycol (Miralax) 17 gm BEDTIME GT 01/16/17 21:00 02/12/17 20:59 Risperidone (RisperDAL) 1 mg QHS GT 01/10/17 21:00 02/09/17 20:59 01/17/17 21:55 Valproic Acid (Depakene) 125 mg EVERY 12 HOURS NG 01/15/17 21:00 02/14/17 20:59 01/17/17 21:56 Vancomycin HCl (Vanco rx to dose) 1 ea DAILY PRN MISC Per rx protocol 01/10/17 12:15 02/09/17 12:14 Vancomycin HCl 500 mg/Dextrose 110 ml @ 110 mls/hr Q24H IVPB 01/15/17 00:00 01/19/17 23:59 01/18/17 00:58 MATILDA DIAL DO Jan 18, 2017 07:28
[2017-01-18 08:00] VITALS: BP 118/45
[2017-01-18] MEDS: Docusate 100mg/10ml Liq NG SCH (08:58)
[2017-01-18] MEDS: Pantoprazole Inj IVP SCH ×2 (08:58→21:05)
[2017-01-18] MEDS: Ascorbic Acid 500mg tab GT SCH (08:58)
[2017-01-18] MEDS: Valproic Acid 250mg/5ml Liquid NG SCH ×2 (08:58→21:05)
[2017-01-18] MEDS: Memantine 10mg tab GT SCH (08:58)
[2017-01-18 12:00] VITALS: BP 97/43
[2017-01-18 16:00] VITALS: BP 138/64
[2017-01-18] MEDS: Cefepime HCl 2 GM in D5W 110 ML IVPB SCH (17:27)
--- NOTE | 2017-01-18 18:24 | General Progress Note ---
Assessment/Plan Assessment/Plan Assessment/Plan # Leukocytosis 2/2 sepsis # Anemia due to chronic disease --> HH improved --> no GI bleed, s/p egd. biopsy negative --> ferritin elevated, no iron deficiency --> hgb goal is >7 --> transfuse if hgb below 7 # HCAP (healthcare-associated pneumonia) --> ID following # UTI (urinary tract infection) # Sepsis Subjective ROS Limited/Unobtainable: Yes Allergies: Coded Allergies: CODEINE (Unverified Allergy, Unknown, 01/10/17) PENICILLINS (Unverified Allergy, Unknown, 01/10/17) Subjective no labs today. afebrile, unresponsive, on vent Objective Last 24 Hour Vital Signs Date Time Temp Pulse Resp B/P (MAP) Pulse Ox O2 Delivery O2 Flow Rate FiO2 01/18/17 17:09 94 32 35 01/18/17 16:00 97.5 92 28 138/64 97 Mechanical Ventilator 35 01/18/17 16:00 35 01/18/17 15:24 80 01/18/17 15:05 85 22 35 01/18/17 13:10 87 22 99 Mechanical Ventilator 35 01/18/17 13:00 85 16 98 Mechanical Ventilator 35 01/18/17 13:00 87 19 35 01/18/17 12:00 98.3 96 14 97/43 100 Mechanical Ventilator 35 01/18/17 12:00 35 01/18/17 11:51 73 01/18/17 11:01 90 22 35 01/18/17 09:03 80 22 35 01/18/17 08:58 81 118/45 01/18/17 08:20 74 01/18/17 08:00 35 01/18/17 08:00 97.9 81 17 118/45 99 Mechanical Ventilator 35 01/18/17 07:12 83 11 99 Mechanical Ventilator 35 01/18/17 07:06 85 19 35 01/18/17 07:05 87 12 99 Mechanical Ventilator 35 01/18/17 05:00 84 22 35 01/18/17 04:00 35 01/18/17 04:00 98.2 85 21 100/50 97 Mechanical Ventilator 35 01/18/17 03:35 83 01/18/17 03:21 88 23 35 01/18/17 01:28 94 20 98 Mechanical Ventilator 35 01/18/17 01:20 96 13 98 Mechanical Ventilator 35 01/18/17 01:15 96 20 35 01/18/17 01:00 73 01/18/17 00:00 98.2 81 23 94/43 98 Mechanical Ventilator 35 01/17/17 23:27 95 20 35 01/17/17 21:03 74 10 35 01/17/17 21:00 35 01/17/17 20:00 99.0 79 10 103/52 100 Mechanical Ventilator 35 01/17/17 19:28 80 01/17/17 19:15 92 20 98 Mechanical Ventilator 35 01/17/17 19:06 91 20 98 Mechanical Ventilator 35 01/17/17 19:04 91 26 35 Intake and Output 01/18/17 01/19/17 19:00 07:00 Intake Total 860 ml Balance 860 ml Free Water 150 ml Tube Feeding 660 ml Other 50 ml # Voids 2 # Bowel Movements 2 Height (Feet): 5 Height (Inches): 2.00 Weight (Pounds): 105 General Appearance: no apparent distress EENT: normal ENT inspection Neck: normal alignment Cardiovascular: normal rate Respiratory/Chest: normal breath sounds Abdomen: no organomegaly, no mass Extremities: non-tender Skin: normal pigmentation ADDIS BLAKE Jan 18, 2017 18:24
[2017-01-18 20:00] VITALS: BP 98/43
--- NOTE | 2017-01-18 20:19 | General Progress Note ---
Assessment/Plan Problem List: (1) GI bleed ICD Codes: K92.2 - Gastrointestinal hemorrhage, unspecified SNOMED: 27704724 (2) Sepsis ICD Codes: A41.9 - Sepsis, unspecified organism SNOMED: 25364119 (3) HCAP (healthcare-associated pneumonia) ICD Codes: J18.9 - Pneumonia, unspecified organism SNOMED: 732772729 (4) UTI (urinary tract infection) ICD Codes: N39.0 - Urinary tract infection, site not specified SNOMED: 54847380 Status: progressing Assessment/Plan pna and uti and sepsis not hypoxic nonverbal intermittent fever trach and peg pleural effusion s/p thoracocentesis Subjective ROS Limited/Unobtainable: Yes Allergies: Coded Allergies: CODEINE (Unverified Allergy, Unknown, 01/10/17) PENICILLINS (Unverified Allergy, Unknown, 01/10/17) Objective Last 24 Hour Vital Signs Date Time Temp Pulse Resp B/P (MAP) Pulse Ox O2 Delivery O2 Flow Rate FiO2 01/18/17 19:46 83 22 99 Mechanical Ventilator 35 01/18/17 19:33 92 13 35 01/18/17 19:33 92 13 97 Mechanical Ventilator 35 01/18/17 17:09 94 32 35 01/18/17 16:00 97.5 92 28 138/64 97 Mechanical Ventilator 35 01/18/17 16:00 35 01/18/17 15:24 80 01/18/17 15:05 85 22 35 01/18/17 13:10 87 22 99 Mechanical Ventilator 35 01/18/17 13:00 85 16 98 Mechanical Ventilator 35 01/18/17 13:00 87 19 35 01/18/17 12:00 98.3 96 14 97/43 100 Mechanical Ventilator 35 01/18/17 12:00 35 01/18/17 11:51 73 01/18/17 11:01 90 22 35 01/18/17 09:03 80 22 35 01/18/17 08:58 81 118/45 01/18/17 08:20 74 01/18/17 08:00 35 01/18/17 08:00 97.9 81 17 118/45 99 Mechanical Ventilator 35 01/18/17 07:12 83 11 99 Mechanical Ventilator 35 01/18/17 07:06 85 19 35 01/18/17 07:05 87 12 99 Mechanical Ventilator 35 01/18/17 05:00 84 22 35 01/18/17 04:00 35 01/18/17 04:00 98.2 85 21 100/50 97 Mechanical Ventilator 35 01/18/17 03:35 83 01/18/17 03:21 88 23 35 01/18/17 01:28 94 20 98 Mechanical Ventilator 35 01/18/17 01:20 96 13 98 Mechanical Ventilator 35 01/18/17 01:15 96 20 35 01/18/17 01:00 73 01/18/17 00:00 98.2 81 23 94/43 98 Mechanical Ventilator 35 01/17/17 23:27 95 20 35 01/17/17 21:03 74 10 35 01/17/17 21:00 35 Intake and Output 01/18/17 01/19/17 19:00 07:00 Intake Total 970 ml Balance 970 ml Free Water 150 ml IV Total 110 ml Tube Feeding 660 ml Other 50 ml # Voids 2 # Bowel Movements 2 Height (Feet): 5 Height (Inches): 2.00 Weight (Pounds): 105 Cardiovascular: normal rate Respiratory/Chest: lungs clear Abdomen: soft Fernandez Gomez MD Jan 18, 2017 20:19
--- NOTE | 2017-01-18 20:19 | General Progress Note ---
Assessment/Plan Problem List: (1) GI bleed ICD Codes: K92.2 - Gastrointestinal hemorrhage, unspecified SNOMED: 13386614 (2) Sepsis ICD Codes: A41.9 - Sepsis, unspecified organism SNOMED: 79678311 (3) HCAP (healthcare-associated pneumonia) ICD Codes: J18.9 - Pneumonia, unspecified organism SNOMED: 384106077 (4) UTI (urinary tract infection) ICD Codes: N39.0 - Urinary tract infection, site not specified SNOMED: 20290131 Status: progressing Assessment/Plan pna and uti and sepsis not hypoxic nonverbal intermittent fever trach and peg pleural effusion s/p thoracocentesis Subjective ROS Limited/Unobtainable: Yes Allergies: Coded Allergies: CODEINE (Unverified Allergy, Unknown, 01/10/17) PENICILLINS (Unverified Allergy, Unknown, 01/10/17) Objective Last 24 Hour Vital Signs Date Time Temp Pulse Resp B/P (MAP) Pulse Ox O2 Delivery O2 Flow Rate FiO2 01/18/17 19:46 83 22 99 Mechanical Ventilator 35 01/18/17 19:33 92 13 35 01/18/17 19:33 92 13 97 Mechanical Ventilator 35 01/18/17 17:09 94 32 35 01/18/17 16:00 97.5 92 28 138/64 97 Mechanical Ventilator 35 01/18/17 16:00 35 01/18/17 15:24 80 01/18/17 15:05 85 22 35 01/18/17 13:10 87 22 99 Mechanical Ventilator 35 01/18/17 13:00 85 16 98 Mechanical Ventilator 35 01/18/17 13:00 87 19 35 01/18/17 12:00 98.3 96 14 97/43 100 Mechanical Ventilator 35 01/18/17 12:00 35 01/18/17 11:51 73 01/18/17 11:01 90 22 35 01/18/17 09:03 80 22 35 01/18/17 08:58 81 118/45 01/18/17 08:20 74 01/18/17 08:00 35 01/18/17 08:00 97.9 81 17 118/45 99 Mechanical Ventilator 35 01/18/17 07:12 83 11 99 Mechanical Ventilator 35 01/18/17 07:06 85 19 35 01/18/17 07:05 87 12 99 Mechanical Ventilator 35 01/18/17 05:00 84 22 35 01/18/17 04:00 35 01/18/17 04:00 98.2 85 21 100/50 97 Mechanical Ventilator 35 01/18/17 03:35 83 01/18/17 03:21 88 23 35 01/18/17 01:28 94 20 98 Mechanical Ventilator 35 01/18/17 01:20 96 13 98 Mechanical Ventilator 35 01/18/17 01:15 96 20 35 01/18/17 01:00 73 01/18/17 00:00 98.2 81 23 94/43 98 Mechanical Ventilator 35 01/17/17 23:27 95 20 35 01/17/17 21:03 74 10 35 01/17/17 21:00 35 Intake and Output 01/18/17 01/19/17 19:00 07:00 Intake Total 970 ml Balance 970 ml Free Water 150 ml IV Total 110 ml Tube Feeding 660 ml Other 50 ml # Voids 2 # Bowel Movements 2 Height (Feet): 5 Height (Inches): 2.00 Weight (Pounds): 105 Cardiovascular: normal rate Respiratory/Chest: lungs clear Abdomen: soft Fernandez Gomez MD Jan 18, 2017 20:19
--- NOTE | 2017-01-18 20:19 | General Progress Note ---
Assessment/Plan Problem List: (1) GI bleed ICD Codes: K92.2 - Gastrointestinal hemorrhage, unspecified SNOMED: 36201442 (2) Sepsis ICD Codes: A41.9 - Sepsis, unspecified organism SNOMED: 53561456 (3) HCAP (healthcare-associated pneumonia) ICD Codes: J18.9 - Pneumonia, unspecified organism SNOMED: 140167888 (4) UTI (urinary tract infection) ICD Codes: N39.0 - Urinary tract infection, site not specified SNOMED: 26772276 Status: progressing Assessment/Plan pna and uti and sepsis not hypoxic nonverbal intermittent fever trach and peg pleural effusion s/p thoracocentesis Subjective ROS Limited/Unobtainable: Yes Allergies: Coded Allergies: CODEINE (Unverified Allergy, Unknown, 01/10/17) PENICILLINS (Unverified Allergy, Unknown, 01/10/17) Objective Last 24 Hour Vital Signs Date Time Temp Pulse Resp B/P (MAP) Pulse Ox O2 Delivery O2 Flow Rate FiO2 01/18/17 19:46 83 22 99 Mechanical Ventilator 35 01/18/17 19:33 92 13 35 01/18/17 19:33 92 13 97 Mechanical Ventilator 35 01/18/17 17:09 94 32 35 01/18/17 16:00 97.5 92 28 138/64 97 Mechanical Ventilator 35 01/18/17 16:00 35 01/18/17 15:24 80 01/18/17 15:05 85 22 35 01/18/17 13:10 87 22 99 Mechanical Ventilator 35 01/18/17 13:00 85 16 98 Mechanical Ventilator 35 01/18/17 13:00 87 19 35 01/18/17 12:00 98.3 96 14 97/43 100 Mechanical Ventilator 35 01/18/17 12:00 35 01/18/17 11:51 73 01/18/17 11:01 90 22 35 01/18/17 09:03 80 22 35 01/18/17 08:58 81 118/45 01/18/17 08:20 74 01/18/17 08:00 35 01/18/17 08:00 97.9 81 17 118/45 99 Mechanical Ventilator 35 01/18/17 07:12 83 11 99 Mechanical Ventilator 35 01/18/17 07:06 85 19 35 01/18/17 07:05 87 12 99 Mechanical Ventilator 35 01/18/17 05:00 84 22 35 01/18/17 04:00 35 01/18/17 04:00 98.2 85 21 100/50 97 Mechanical Ventilator 35 01/18/17 03:35 83 01/18/17 03:21 88 23 35 01/18/17 01:28 94 20 98 Mechanical Ventilator 35 01/18/17 01:20 96 13 98 Mechanical Ventilator 35 01/18/17 01:15 96 20 35 01/18/17 01:00 73 01/18/17 00:00 98.2 81 23 94/43 98 Mechanical Ventilator 35 01/17/17 23:27 95 20 35 01/17/17 21:03 74 10 35 01/17/17 21:00 35 Intake and Output 01/18/17 01/19/17 19:00 07:00 Intake Total 970 ml Balance 970 ml Free Water 150 ml IV Total 110 ml Tube Feeding 660 ml Other 50 ml # Voids 2 # Bowel Movements 2 Height (Feet): 5 Height (Inches): 2.00 Weight (Pounds): 105 Cardiovascular: normal rate Respiratory/Chest: lungs clear Abdomen: soft Fernandez Gomez MD Jan 18, 2017 20:19
[2017-01-18] MEDS: Miralax 17gm pkt GT SCH (21:00)
--- NOTE | 2017-01-18 21:49 | Infectious Diseases Prog Note ---
Assessment/Plan Problems: (1) HCAP (healthcare-associated pneumonia) Assessment & Plan: due to MRSA and haemophilus influenza with bilateral basal consolidation complicated with parapneumonia effusion , rule out empyema , S/P thoracentesis, await fluids results for gram stain, culture, fungal, AFB, and adenosis deaminase, continue vancomycin , and cefepime , and monitor CXR, watch out for recurrence (2) UTI (urinary tract infection) Assessment & Plan: with santhosh, less than 10 0000 colony, most likely colonization, recommend to change travis catheter , no need for antifungal (3) Sepsis Assessment & Plan: due to the above, with negative blood culture, continue wide spectrum antibiotics to cover for pneumonia (4) GI bleed Assessment & Plan: monitor H/H, transfuse as needed , GI is following (5) COPD exacerbation Assessment & Plan: continue nebulizer therapy, monitor CXR (6) Open nasal wound Assessment & Plan: not deep to the nasal cavity with no necrosis , no evidenc of fungal growth , and she had previously candiduria at [facility], culture here showed candda again, most likely colonizer (7) Sacral wound Assessment & Plan: continue local wound care and off loading , consult wound care (8) Recurrent fever Assessment & Plan: resolved, rule out empyema , or atypical infection such as TB , screening with gold test is pending, no need for isolation at this point , patient is not coughing . Subjective ROS Limited/Unobtainable: Yes Allergies: Coded Allergies: CODEINE (Unverified Allergy, Unknown, 01/10/17) PENICILLINS (Unverified Allergy, Unknown, 01/10/17) Subjective she is lying in bed, alert, and comfortable on mechanical ventilation through her trach, had thick white secretions today , but no fever , open eyes spontaneously not in distress Objective Vital Signs Last 24 Hour Vital Signs Date Time Temp Pulse Resp B/P (MAP) Pulse Ox O2 Delivery O2 Flow Rate FiO2 01/18/17 21:33 95 20 35 01/18/17 20:00 97.5 90 19 98/43 97 Mechanical Ventilator 35 01/18/17 19:46 83 22 99 Mechanical Ventilator 35 01/18/17 19:33 92 13 35 01/18/17 19:33 92 13 97 Mechanical Ventilator 35 01/18/17 17:09 94 32 35 01/18/17 16:00 97.5 92 28 138/64 97 Mechanical Ventilator 35 01/18/17 16:00 35 01/18/17 15:24 80 01/18/17 15:05 85 22 35 01/18/17 13:10 87 22 99 Mechanical Ventilator 35 01/18/17 13:00 85 16 98 Mechanical Ventilator 35 01/18/17 13:00 87 19 35 01/18/17 12:00 98.3 96 14 97/43 100 Mechanical Ventilator 35 01/18/17 12:00 35 01/18/17 11:51 73 01/18/17 11:01 90 22 35 01/18/17 09:03 80 22 35 01/18/17 08:58 81 118/45 01/18/17 08:20 74 01/18/17 08:00 35 01/18/17 08:00 97.9 81 17 118/45 99 Mechanical Ventilator 35 01/18/17 07:12 83 11 99 Mechanical Ventilator 35 01/18/17 07:06 85 19 35 01/18/17 07:05 87 12 99 Mechanical Ventilator 35 01/18/17 05:00 84 22 35 01/18/17 04:00 35 01/18/17 04:00 98.2 85 21 100/50 97 Mechanical Ventilator 35 01/18/17 03:35 83 01/18/17 03:21 88 23 35 01/18/17 01:28 94 20 98 Mechanical Ventilator 35 01/18/17 01:20 96 13 98 Mechanical Ventilator 35 01/18/17 01:15 96 20 35 01/18/17 01:00 73 01/18/17 00:00 98.2 81 23 94/43 98 Mechanical Ventilator 35 01/17/17 23:27 95 20 35 Height (Feet): 5 Height (Inches): 2.00 Weight (Pounds): 105 General Appearance: WD/WN, no acute distress, cachetic HEENT: normocephalic, atraumatic, anicteric, mucous membranes moist, PERRL Respiratory/Chest: chest wall non-tender, no respiratory distress, no accessory muscle use, decreased breath sounds, crackles/rales Cardiovascular: normal peripheral pulses, normal rate, regular rhythm, no gallop/murmur, no JVD Abdomen: normal bowel sounds, soft, non tender, no organomegaly, non distended , no mass, no scars Genitourinary: normal external genitalia Extremities: no cyanosis, no clubbing Skin: no rash, no lesions, ulcers Neurologic/Psychiatric: alert, responsive Lymphatic: no neck adenopathy, no groin adenopathy Microbiology Date/Time Source Procedure Growth Status 01/16/17 16:30 Pleural Fluid Gram Stain - Final Resulted 01/16/17 16:30 Pleural Fluid Body Fluid Culture - Preliminary Resulted Current Medications Medications (Trade) Dose Ordered Sig/Sky Route PRN Reason Start Time Stop Time Status Last Admin Dose Admin Acetaminophen (Tylenol) 650 mg Q6H PRN GT Mild Pain/Temp > 100.5 01/16/17 11:45 02/09/17 17:59 Acetylcysteine (Mucomyst) 200 mg Q6HRT INH 01/17/17 19:00 02/16/17 17:59 01/18/17 19:57 Albuterol/ Ipratropium (Albuterol/ Ipratropium) 3 ml Q6HRT HHN 01/17/17 01:00 01/22/17 00:59 01/18/17 19:33 Amlodipine Besylate (Norvasc) 2.5 mg DAILY GT 01/11/17 09:00 02/10/17 08:59 01/18/17 08:58 Ascorbic Acid (Vitamin C) 500 mg DAILY GT 01/11/17 09:00 02/10/17 08:59 01/18/17 08:58 Cefepime HCl 2 gm/ Dextrose 110 ml @ 220 mls/hr Q24H IVPB 01/15/17 17:00 01/22/17 16:59 01/18/17 17:27 Dextrose (Dextrose 50%) STAT PRN IV Hypoglycemia 01/10/17 14:45 02/09/17 14:44 Docusate Sodium (Colace) 250 mg DAILY NG 01/11/17 09:00 02/10/17 08:59 01/14/17 09:00 Memantine (Namenda) 10 mg DAILY GT 01/11/17 09:00 02/10/17 08:59 01/18/17 08:58 Ondansetron HCl (Zofran) 4 mg Q6H PRN IVP Nausea & Vomiting 01/10/17 14:45 02/09/17 14:44 Pantoprazole (Protonix) 40 mg EVERY 12 HOURS IVP 01/11/17 09:00 02/10/17 08:59 01/18/17 21:05 Polyethylene Glycol (Miralax) 17 gm BEDTIME GT 01/16/17 21:00 02/12/17 20:59 Risperidone (RisperDAL) 1 mg QHS GT 01/10/17 21:00 02/09/17 20:59 01/18/17 21:04 Valproic Acid (Depakene) 125 mg EVERY 12 HOURS NG 01/15/17 21:00 02/14/17 20:59 01/18/17 21:05 Vancomycin HCl (Vanco rx to dose) 1 ea DAILY PRN MISC Per rx protocol 01/10/17 12:15 02/09/17 12:14 Vancomycin HCl 500 mg/Dextrose 110 ml @ 110 mls/hr Q24H IVPB 01/15/17 00:00 01/19/17 23:59 01/18/17 00:58 Shankar Qiu M.D. Jan 18, 2017 21:49
[2017-01-19] VITALS: BP 133/49
[2017-01-19] MEDS: Vancomycin 500mg/D5W 110ml IVPB SCH ×2 (01:03)
[2017-01-19] MEDS: Acetylcysteine 20% Soln 4ml INH SCH ×3 (01:27→12:38)
[2017-01-19] MEDS: Albuterol/Ipratropium 3ml neb HHN SCH ×3 (01:27→12:38)
[2017-01-19 04:00] VITALS: BP 119/50
[2017-01-19 08:00] VITALS: BP 99/44
[2017-01-19] MEDS: Docusate 100mg/10ml Liq NG SCH (09:00)
[2017-01-19] MEDS: Valproic Acid 250mg/5ml Liquid NG SCH (09:37)
[2017-01-19] MEDS: Ascorbic Acid 500mg tab GT SCH (09:37)
[2017-01-19] MEDS: Memantine 10mg tab GT SCH (09:38)
[2017-01-19] MEDS: Pantoprazole Inj IVP SCH (09:38)
[2017-01-19] MEDS ORDERED: D5 1/2NS 1000ml IV ONE (10:28)
[2017-01-19] MEDS ORDERED: Tubing IV Secondary IV ONE (10:28)
[2017-01-19] MEDS ORDERED: NS 275ml ONE (10:28)
[2017-01-19 11:25] LABS: BASOPHILS % (AUTO) 1.9 % (0.0-2.0); EOSINOPHILS % (AUTO) 2.1 % (0.0-3.0); HEMOGLOBIN 10.2 G/DL (12.0-16.0); LYMPHOCYTES % (AUTO) 16.6 % (20.0-45.0); MEAN CORPUSCULAR VOLUME 101 FL (80-99); MONOCYTES % (AUTO) 11.3 % (1.0-10.0); NEUTROPHILS % (AUTO) 68.1 % (45.0-75.0); PLATELET COUNT 373 K/UL (150-450); RED BLOOD COUNT 3.25 M/UL (4.20-5.40); WHITE BLOOD COUNT 13.6 K/UL (4.8-10.8)
--- NOTE | 2017-01-19 11:31 | Wound Nurse Progress Note ---
Wound RN Progress Note Wound Consult Reassessment. #1 Sacral unstageable pressure ulcer- no further deterioration present, site remains as unstageable, noted increase in pink wound bed 25% pink wound bed to scattered sacral unstageable,75% noted with slough. no change in size. #2 Left buttock DTI pressure ulcer- site remains as DTI no further deterioration present. skin remains intact. noted emergency technician in color , treatment effective #3 Right buttock DTI pressure ulcer-site remains as DTI no further deterioration present. skin remains intact. noted emergency technician in color, treatment effective. #4 Right cheek DTI pressure ulcer possible caused by medical devices - noted good progress skin remains intact, noted emergency technician in color decrease in size, 2.0cmx2.0cm #5 Nose with dry scab etiology unknown- no change remains dry. Recommendation - Continue Local wound care per protocol -Keep clean and dry -Avoid shear and friction -Turn and reposition -Optimize nutrition -Offload both heels -Heel protector on both heels -Low air loss mattress -Assess and f/u with MD if any changes of condition to skin is noted. PIERRE COX Jan 19, 2017 11:31
--- NOTE | 2017-01-19 11:31 | Wound Nurse Progress Note ---
Wound RN Progress Note Wound Consult Reassessment. #1 Sacral unstageable pressure ulcer- no further deterioration present, site remains as unstageable, noted increase in pink wound bed 25% pink wound bed to scattered sacral unstageable,75% noted with slough. no change in size. #2 Left buttock DTI pressure ulcer- site remains as DTI no further deterioration present. skin remains intact. noted autotransfusionist in color , treatment effective #3 Right buttock DTI pressure ulcer-site remains as DTI no further deterioration present. skin remains intact. noted autotransfusionist in color, treatment effective. #4 Right cheek DTI pressure ulcer possible caused by medical devices - noted good progress skin remains intact, noted autotransfusionist in color decrease in size, 2.0cmx2.0cm #5 Nose with dry scab etiology unknown- no change remains dry. Recommendation - Continue Local wound care per protocol -Keep clean and dry -Avoid shear and friction -Turn and reposition -Optimize nutrition -Offload both heels -Heel protector on both heels -Low air loss mattress -Assess and f/u with MD if any changes of condition to skin is noted. PIERRE COX Jan 19, 2017 11:31
--- NOTE | 2017-01-19 11:31 | Wound Nurse Progress Note ---
Wound RN Progress Note Wound Consult Reassessment. #1 Sacral unstageable pressure ulcer- no further deterioration present, site remains as unstageable, noted increase in pink wound bed 25% pink wound bed to scattered sacral unstageable,75% noted with slough. no change in size. #2 Left buttock DTI pressure ulcer- site remains as DTI no further deterioration present. skin remains intact. noted coin machine assembler in color , treatment effective #3 Right buttock DTI pressure ulcer-site remains as DTI no further deterioration present. skin remains intact. noted coin machine assembler in color, treatment effective. #4 Right cheek DTI pressure ulcer possible caused by medical devices - noted good progress skin remains intact, noted coin machine assembler in color decrease in size, 2.0cmx2.0cm #5 Nose with dry scab etiology unknown- no change remains dry. Recommendation - Continue Local wound care per protocol -Keep clean and dry -Avoid shear and friction -Turn and reposition -Optimize nutrition -Offload both heels -Heel protector on both heels -Low air loss mattress -Assess and f/u with MD if any changes of condition to skin is noted. PIERRE COX Jan 19, 2017 11:31
[2017-01-19 11:42] LABS: ANION GAP 4 mmol/L (5-15); BLOOD UREA NITROGEN 24 mg/dL (7-18); CALCIUM 8.6 MG/DL (8.5-10.1); CARBON DIOXIDE 32 MMOL/L (21-32); CHLORIDE 106 MMOL/L (98-107); CREATININE 0.8 MG/DL (0.55-1.30); POTASSIUM 4.7 MMOL/L (3.5-5.1); SODIUM 141 MMOL/L (136-145)
[2017-01-19 12:00] VITALS: BP 129/57
--- NOTE | 2017-01-19 12:33 | GI Progress Note ---
Assessment/Plan Problems: (1) Anemia due to acute blood loss ICD Codes: D62 - Acute posthemorrhagic anemia SNOMED: 907677049 (2) GI bleed ICD Codes: K92.2 - Gastrointestinal hemorrhage, unspecified SNOMED: 26663899 (3) Severe sepsis ICD Codes: A41.9 - Sepsis, unspecified organism; R65.20 - Severe sepsis without septic shock SNOMED: 64148718 (4) Tracheostomy dependence ICD Codes: Z93.0 - Tracheostomy status SNOMED: 149053889, 085671818 Status: unchanged Status Narrative Discussed with Dr. Amor. Assessment/Plan s/p EGD SUMMARY FINDINGS: 1. Minimum distal esophagitis. 2. Distal esophageal ring. 3. Gastritis. 4. Gastric polyps. OB stool negative RECOMMENDATIONS: fu biopsy and treat >> reflux esophagitis, otherwise unremarkable. ppi BID elevate HOB GT site care/flush prn monitor H&H, prn transfusion consider colonoscopy if needed fu labs Subjective Subjective limited Objective Last 24 Hour Vital Signs Date Time Temp Pulse Resp B/P (MAP) Pulse Ox O2 Delivery O2 Flow Rate FiO2 01/19/17 12:00 97.7 86 14 129/57 98 Mechanical Ventilator 35 01/19/17 10:56 88 19 35 01/19/17 09:05 87 21 35 01/19/17 09:00 88 99/44 01/19/17 08:00 99.3 88 17 99/44 99 Mechanical Ventilator 35 01/19/17 08:00 35 01/19/17 07:51 88 01/19/17 07:42 95 21 98 Mechanical Ventilator 35 01/19/17 07:36 87 18 98 Mechanical Ventilator 35 01/19/17 07:26 87 18 35 01/19/17 05:25 82 20 35 01/19/17 04:15 85 01/19/17 04:00 35 01/19/17 04:00 98.0 86 22 119/50 99 Mechanical Ventilator 35 01/19/17 03:28 87 19 35 01/19/17 02:17 88 21 99 Mechanical Ventilator 35 01/19/17 01:27 80 18 97 Mechanical Ventilator 35 01/19/17 01:27 80 20 35 01/19/17 00:00 35 01/19/17 00:00 98.1 90 15 133/49 99 Mechanical Ventilator 35 01/18/17 23:52 83 11/5/17 23:19 96 19 35 01/18/17 21:33 95 20 35 01/18/17 20:00 35 01/18/17 20:00 97.5 90 19 98/43 97 Mechanical Ventilator 35 01/18/17 19:46 83 22 99 Mechanical Ventilator 35 01/18/17 19:37 89 01/18/17 19:33 92 13 35 01/18/17 19:33 92 13 97 Mechanical Ventilator 35 01/18/17 17:09 94 32 35 01/18/17 16:00 97.5 92 28 138/64 97 Mechanical Ventilator 35 01/18/17 16:00 35 01/18/17 15:24 80 01/18/17 15:05 85 22 35 01/18/17 13:10 87 22 99 Mechanical Ventilator 35 01/18/17 13:00 85 16 98 Mechanical Ventilator 35 01/18/17 13:00 87 19 35 Intake and Output 01/19/17 01/20/17 19:00 07:00 # Bowel Movements 1 Laboratory Tests Test 01/19/17 11:00 White Blood Count 13.6 K/UL (4.8-10.8) H Red Blood Count 3.25 M/UL (4.20-5.40) L Hemoglobin 10.2 G/DL (12.0-16.0) L Hematocrit 33.0 % (37.0-47.0) L Mean Corpuscular Volume 101 FL (80-99) H Mean Corpuscular Hemoglobin 31.2 PG (27.0-31.0) H Mean Corpuscular Hemoglobin Concent 30.8 G/DL (32.0-36.0) L Red Cell Distribution Width 14.0 % (11.6-14.8) Platelet Count 373 K/UL (150-450) Mean Platelet Volume 7.5 FL (6.5-10.1) Neutrophils (%) (Auto) 68.1 % (45.0-75.0) Lymphocytes (%) (Auto) 16.6 % (20.0-45.0) L Monocytes (%) (Auto) 11.3 % (1.0-10.0) H Eosinophils (%) (Auto) 2.1 % (0.0-3.0) Basophils (%) (Auto) 1.9 % (0.0-2.0) Sodium Level 141 MMOL/L (136-145) Potassium Level 4.7 MMOL/L (3.5-5.1) Chloride Level 106 MMOL/L (98-107) Carbon Dioxide Level 32 MMOL/L (21-32) Anion Gap 4 mmol/L (5-15) L Blood Urea Nitrogen 24 mg/dL (7-18) H Creatinine 0.8 MG/DL (0.55-1.30) Estimat Glomerular Filtration Rate mL/min (>60) Glucose Level 108 MG/DL (74-106) H Calcium Level 8.6 MG/DL (8.5-10.1) Adenosine Deaminase Pending Height (Feet): 5 Height (Inches): 2.00 Weight (Pounds): 105 General Appearance: no apparent distress, alert Cardiovascular: normal rate Respiratory/Chest: other - mech vent Abdominal Exam: soft, GT site - c/d/i Rosibel Newton N.P. Jan 19, 2017 12:33
--- NOTE | 2017-01-19 12:33 | GI Progress Note ---
Assessment/Plan Problems: (1) Anemia due to acute blood loss ICD Codes: D62 - Acute posthemorrhagic anemia SNOMED: 757302655 (2) GI bleed ICD Codes: K92.2 - Gastrointestinal hemorrhage, unspecified SNOMED: 89762810 (3) Severe sepsis ICD Codes: A41.9 - Sepsis, unspecified organism; R65.20 - Severe sepsis without septic shock SNOMED: 53592118 (4) Tracheostomy dependence ICD Codes: Z93.0 - Tracheostomy status SNOMED: 797058779, 240981020 Status: unchanged Status Narrative Discussed with Dr. Amor. Assessment/Plan s/p EGD SUMMARY FINDINGS: 1. Minimum distal esophagitis. 2. Distal esophageal ring. 3. Gastritis. 4. Gastric polyps. OB stool negative RECOMMENDATIONS: fu biopsy and treat >> reflux esophagitis, otherwise unremarkable. ppi BID elevate HOB GT site care/flush prn monitor H&H, prn transfusion consider colonoscopy if needed fu labs Subjective Subjective limited Objective Last 24 Hour Vital Signs Date Time Temp Pulse Resp B/P (MAP) Pulse Ox O2 Delivery O2 Flow Rate FiO2 01/19/17 12:00 97.7 86 14 129/57 98 Mechanical Ventilator 35 01/19/17 10:56 88 19 35 01/19/17 09:05 87 21 35 01/19/17 09:00 88 99/44 01/19/17 08:00 99.3 88 17 99/44 99 Mechanical Ventilator 35 01/19/17 08:00 35 01/19/17 07:51 88 01/19/17 07:42 95 21 98 Mechanical Ventilator 35 01/19/17 07:36 87 18 98 Mechanical Ventilator 35 01/19/17 07:26 87 18 35 01/19/17 05:25 82 20 35 01/19/17 04:15 85 01/19/17 04:00 35 01/19/17 04:00 98.0 86 22 119/50 99 Mechanical Ventilator 35 01/19/17 03:28 87 19 35 01/19/17 02:17 88 21 99 Mechanical Ventilator 35 01/19/17 01:27 80 18 97 Mechanical Ventilator 35 01/19/17 01:27 80 20 35 01/19/17 00:00 35 01/19/17 00:00 98.1 90 15 133/49 99 Mechanical Ventilator 35 01/18/17 23:52 83 11/5/17 23:19 96 19 35 01/18/17 21:33 95 20 35 01/18/17 20:00 35 01/18/17 20:00 97.5 90 19 98/43 97 Mechanical Ventilator 35 01/18/17 19:46 83 22 99 Mechanical Ventilator 35 01/18/17 19:37 89 01/18/17 19:33 92 13 35 01/18/17 19:33 92 13 97 Mechanical Ventilator 35 01/18/17 17:09 94 32 35 01/18/17 16:00 97.5 92 28 138/64 97 Mechanical Ventilator 35 01/18/17 16:00 35 01/18/17 15:24 80 01/18/17 15:05 85 22 35 01/18/17 13:10 87 22 99 Mechanical Ventilator 35 01/18/17 13:00 85 16 98 Mechanical Ventilator 35 01/18/17 13:00 87 19 35 Intake and Output 01/19/17 01/20/17 19:00 07:00 # Bowel Movements 1 Laboratory Tests Test 01/19/17 11:00 White Blood Count 13.6 K/UL (4.8-10.8) H Red Blood Count 3.25 M/UL (4.20-5.40) L Hemoglobin 10.2 G/DL (12.0-16.0) L Hematocrit 33.0 % (37.0-47.0) L Mean Corpuscular Volume 101 FL (80-99) H Mean Corpuscular Hemoglobin 31.2 PG (27.0-31.0) H Mean Corpuscular Hemoglobin Concent 30.8 G/DL (32.0-36.0) L Red Cell Distribution Width 14.0 % (11.6-14.8) Platelet Count 373 K/UL (150-450) Mean Platelet Volume 7.5 FL (6.5-10.1) Neutrophils (%) (Auto) 68.1 % (45.0-75.0) Lymphocytes (%) (Auto) 16.6 % (20.0-45.0) L Monocytes (%) (Auto) 11.3 % (1.0-10.0) H Eosinophils (%) (Auto) 2.1 % (0.0-3.0) Basophils (%) (Auto) 1.9 % (0.0-2.0) Sodium Level 141 MMOL/L (136-145) Potassium Level 4.7 MMOL/L (3.5-5.1) Chloride Level 106 MMOL/L (98-107) Carbon Dioxide Level 32 MMOL/L (21-32) Anion Gap 4 mmol/L (5-15) L Blood Urea Nitrogen 24 mg/dL (7-18) H Creatinine 0.8 MG/DL (0.55-1.30) Estimat Glomerular Filtration Rate mL/min (>60) Glucose Level 108 MG/DL (74-106) H Calcium Level 8.6 MG/DL (8.5-10.1) Adenosine Deaminase Pending Height (Feet): 5 Height (Inches): 2.00 Weight (Pounds): 105 General Appearance: no apparent distress, alert Cardiovascular: normal rate Respiratory/Chest: other - mech vent Abdominal Exam: soft, GT site - c/d/i Rosibel Newton N.P. Jan 19, 2017 12:33
--- NOTE | 2017-01-19 12:33 | GI Progress Note ---
Assessment/Plan Problems: (1) Anemia due to acute blood loss ICD Codes: D62 - Acute posthemorrhagic anemia SNOMED: 489983041 (2) GI bleed ICD Codes: K92.2 - Gastrointestinal hemorrhage, unspecified SNOMED: 22247680 (3) Severe sepsis ICD Codes: A41.9 - Sepsis, unspecified organism; R65.20 - Severe sepsis without septic shock SNOMED: 91308984 (4) Tracheostomy dependence ICD Codes: Z93.0 - Tracheostomy status SNOMED: 400667494, 423984260 Status: unchanged Status Narrative Discussed with Dr. Amor. Assessment/Plan s/p EGD SUMMARY FINDINGS: 1. Minimum distal esophagitis. 2. Distal esophageal ring. 3. Gastritis. 4. Gastric polyps. OB stool negative RECOMMENDATIONS: fu biopsy and treat >> reflux esophagitis, otherwise unremarkable. ppi BID elevate HOB GT site care/flush prn monitor H&H, prn transfusion consider colonoscopy if needed fu labs Subjective Subjective limited Objective Last 24 Hour Vital Signs Date Time Temp Pulse Resp B/P (MAP) Pulse Ox O2 Delivery O2 Flow Rate FiO2 01/19/17 12:00 97.7 86 14 129/57 98 Mechanical Ventilator 35 01/19/17 10:56 88 19 35 01/19/17 09:05 87 21 35 01/19/17 09:00 88 99/44 01/19/17 08:00 99.3 88 17 99/44 99 Mechanical Ventilator 35 01/19/17 08:00 35 01/19/17 07:51 88 01/19/17 07:42 95 21 98 Mechanical Ventilator 35 01/19/17 07:36 87 18 98 Mechanical Ventilator 35 01/19/17 07:26 87 18 35 01/19/17 05:25 82 20 35 01/19/17 04:15 85 01/19/17 04:00 35 01/19/17 04:00 98.0 86 22 119/50 99 Mechanical Ventilator 35 01/19/17 03:28 87 19 35 01/19/17 02:17 88 21 99 Mechanical Ventilator 35 01/19/17 01:27 80 18 97 Mechanical Ventilator 35 01/19/17 01:27 80 20 35 01/19/17 00:00 35 01/19/17 00:00 98.1 90 15 133/49 99 Mechanical Ventilator 35 01/18/17 23:52 83 11/5/17 23:19 96 19 35 01/18/17 21:33 95 20 35 01/18/17 20:00 35 01/18/17 20:00 97.5 90 19 98/43 97 Mechanical Ventilator 35 01/18/17 19:46 83 22 99 Mechanical Ventilator 35 01/18/17 19:37 89 01/18/17 19:33 92 13 35 01/18/17 19:33 92 13 97 Mechanical Ventilator 35 01/18/17 17:09 94 32 35 01/18/17 16:00 97.5 92 28 138/64 97 Mechanical Ventilator 35 01/18/17 16:00 35 01/18/17 15:24 80 01/18/17 15:05 85 22 35 01/18/17 13:10 87 22 99 Mechanical Ventilator 35 01/18/17 13:00 85 16 98 Mechanical Ventilator 35 01/18/17 13:00 87 19 35 Intake and Output 01/19/17 01/20/17 19:00 07:00 # Bowel Movements 1 Laboratory Tests Test 01/19/17 11:00 White Blood Count 13.6 K/UL (4.8-10.8) H Red Blood Count 3.25 M/UL (4.20-5.40) L Hemoglobin 10.2 G/DL (12.0-16.0) L Hematocrit 33.0 % (37.0-47.0) L Mean Corpuscular Volume 101 FL (80-99) H Mean Corpuscular Hemoglobin 31.2 PG (27.0-31.0) H Mean Corpuscular Hemoglobin Concent 30.8 G/DL (32.0-36.0) L Red Cell Distribution Width 14.0 % (11.6-14.8) Platelet Count 373 K/UL (150-450) Mean Platelet Volume 7.5 FL (6.5-10.1) Neutrophils (%) (Auto) 68.1 % (45.0-75.0) Lymphocytes (%) (Auto) 16.6 % (20.0-45.0) L Monocytes (%) (Auto) 11.3 % (1.0-10.0) H Eosinophils (%) (Auto) 2.1 % (0.0-3.0) Basophils (%) (Auto) 1.9 % (0.0-2.0) Sodium Level 141 MMOL/L (136-145) Potassium Level 4.7 MMOL/L (3.5-5.1) Chloride Level 106 MMOL/L (98-107) Carbon Dioxide Level 32 MMOL/L (21-32) Anion Gap 4 mmol/L (5-15) L Blood Urea Nitrogen 24 mg/dL (7-18) H Creatinine 0.8 MG/DL (0.55-1.30) Estimat Glomerular Filtration Rate mL/min (>60) Glucose Level 108 MG/DL (74-106) H Calcium Level 8.6 MG/DL (8.5-10.1) Adenosine Deaminase Pending Height (Feet): 5 Height (Inches): 2.00 Weight (Pounds): 105 General Appearance: no apparent distress, alert Cardiovascular: normal rate Respiratory/Chest: other - mech vent Abdominal Exam: soft, GT site - c/d/i Rosibel Newton N.P. Jan 19, 2017 12:33
--- NOTE | 2017-01-19 12:49 | Pulmonology Progress Note ---
Assessment/Plan Assessment/Plan 1. Ventilator-dependent respiratory failure. 2. Chronic pneumonia, possible underlying congestive heart failure. 3. Urinary tract infection. 4. Sepsis. 5. Hypertension. 6. Diabetes. 7. Large bilateral effusions on CT thoracentesis done 01/16; results pdg doubt empyema WBC 13 cont vent support abx per ID disc w RN dc planning Subjective ROS Limited/Unobtainable: Yes Allergies: Coded Allergies: CODEINE (Unverified Allergy, Unknown, 01/10/17) PENICILLINS (Unverified Allergy, Unknown, 01/10/17) Objective Last 24 Hour Vital Signs Date Time Temp Pulse Resp B/P (MAP) Pulse Ox O2 Delivery O2 Flow Rate FiO2 01/19/17 12:42 82 19 35 01/19/17 12:41 88 19 99 Mechanical Ventilator 35 01/19/17 12:00 97.7 86 14 129/57 98 Mechanical Ventilator 35 01/19/17 10:56 88 19 35 01/19/17 09:05 87 21 35 01/19/17 09:00 88 99/44 01/19/17 08:00 99.3 88 17 99/44 99 Mechanical Ventilator 35 01/19/17 08:00 35 01/19/17 07:51 88 01/19/17 07:42 95 21 98 Mechanical Ventilator 35 01/19/17 07:36 87 18 98 Mechanical Ventilator 35 01/19/17 07:26 87 18 35 01/19/17 05:25 82 20 35 01/19/17 04:15 85 01/19/17 04:00 35 01/19/17 04:00 98.0 86 22 119/50 99 Mechanical Ventilator 35 01/19/17 03:28 87 19 35 01/19/17 02:17 88 21 99 Mechanical Ventilator 35 01/19/17 01:27 80 18 97 Mechanical Ventilator 35 01/19/17 01:27 80 20 35 01/19/17 00:00 35 01/19/17 00:00 98.1 90 15 133/49 99 Mechanical Ventilator 35 01/18/17 23:52 83 01/18/17 23:19 96 19 35 01/18/17 21:33 95 20 35 01/18/17 20:00 35 01/18/17 20:00 97.5 90 19 98/43 97 Mechanical Ventilator 35 01/18/17 19:46 83 22 99 Mechanical Ventilator 35 01/18/17 19:37 89 01/18/17 19:33 92 13 35 01/18/17 19:33 92 13 97 Mechanical Ventilator 35 01/18/17 17:09 94 32 35 01/18/17 16:00 97.5 92 28 138/64 97 Mechanical Ventilator 35 01/18/17 16:00 35 01/18/17 15:24 80 01/18/17 15:05 85 22 35 01/18/17 13:10 87 22 99 Mechanical Ventilator 35 01/18/17 13:00 85 16 98 Mechanical Ventilator 35 01/18/17 13:00 87 19 35 Intake and Output 01/19/17 01/20/17 19:00 07:00 # Bowel Movements 1 Objective trach/vent G tube General Appearance: no acute distress HEENT: anicteric Respiratory/Chest: lungs clear Cardiovascular: normal rate Microbiology Date/Time Source Procedure Growth Status 01/16/17 16:30 Pleural Fluid Gram Stain - Final Resulted 01/16/17 16:30 Pleural Fluid Body Fluid Culture - Preliminary NO GROWTH AFTER 24 HOURS Resulted Laboratory Tests 01/19/17 11:00: White Blood Count 13.6H, Red Blood Count 3.25L, Hemoglobin 10.2L, Hematocrit 33.0L, Mean Corpuscular Volume 101H, Mean Corpuscular Hemoglobin 31.2H, Mean Corpuscular Hemoglobin Concent 30.8L, Red Cell Distribution Width 14.0, Platelet Count 373, Mean Platelet Volume 7.5, Neutrophils (%) (Auto) 68.1, Lymphocytes (%) (Auto) 16.6L, Monocytes (%) (Auto) 11.3H, Eosinophils (%) (Auto ) 2.1, Basophils (%) (Auto) 1.9, Sodium Level 141, Potassium Level 4.7, Chloride Level 106, Carbon Dioxide Level 32, Anion Gap 4L, Blood Urea Nitrogen 24H, Creatinine 0.8, Estimat Glomerular Filtration Rate , Glucose Level 108H, Calcium Level 8.6, Adenosine Deaminase [Pending] Current Medications Medications (Trade) Dose Ordered Sig/Sky Route PRN Reason Start Time Stop Time Status Last Admin Dose Admin Acetaminophen (Tylenol) 650 mg Q6H PRN GT Mild Pain/Temp > 100.5 01/16/17 11:45 02/09/17 17:59 Acetylcysteine (Mucomyst) 200 mg Q6HRT INH 01/17/17 19:00 02/16/17 17:59 01/19/17 12:38 Albuterol/ Ipratropium (Albuterol/ Ipratropium) 3 ml Q6HRT HHN 01/17/17 01:00 01/22/17 00:59 01/19/17 12:38 Amlodipine Besylate (Norvasc) 2.5 mg DAILY GT 01/11/17 09:00 02/10/17 08:59 01/18/17 08:58 Ascorbic Acid (Vitamin C) 500 mg DAILY GT 01/11/17 09:00 02/10/17 08:59 01/19/17 09:37 Cefepime HCl 2 gm/ Dextrose 110 ml @ 220 mls/hr Q24H IVPB 01/15/17 17:00 01/22/17 16:59 01/18/17 17:27 Dextrose (Dextrose 50%) STAT PRN IV Hypoglycemia 01/10/17 14:45 02/09/17 14:44 Docusate Sodium (Colace) 250 mg DAILY NG 01/11/17 09:00 02/10/17 08:59 01/14/17 09:00 Memantine (Namenda) 10 mg DAILY GT 01/11/17 09:00 02/10/17 08:59 01/19/17 09:38 Ondansetron HCl (Zofran) 4 mg Q6H PRN IVP Nausea & Vomiting 01/10/17 14:45 02/09/17 14:44 Pantoprazole (Protonix) 40 mg EVERY 12 HOURS IVP 01/11/17 09:00 02/10/17 08:59 01/19/17 09:38 Polyethylene Glycol (Miralax) 17 gm BEDTIME GT 01/16/17 21:00 02/12/17 20:59 Risperidone (RisperDAL) 1 mg QHS GT 01/10/17 21:00 02/09/17 20:59 01/18/17 21:04 Valproic Acid (Depakene) 125 mg EVERY 12 HOURS NG 01/15/17 21:00 02/14/17 20:59 01/19/17 09:37 Vancomycin HCl (Vanco rx to dose) 1 ea DAILY PRN MISC Per rx protocol 01/10/17 12:15 01/22/17 23:59 Vancomycin HCl 500 mg/Dextrose 110 ml @ 110 mls/hr Q24H IVPB 01/15/17 00:00 01/22/17 23:59 01/19/17 01:03 MELANIE ENGLISH Jan 19, 2017 12:49
--- NOTE | 2017-01-19 15:06 | Diagnostic Imaging Report ---
Indication: Dyspnea Comparison: 01/16/17 A single view chest radiograph was obtained. Findings: Interstitial pulmonary edema has developed since the last examination. Heart is enlarged. Basilar lung disease especially on the left side also noted. Tracheostomy again noted. Impression: Evidence of worsening pulmonary edema
[2017-01-19] MEDS ORDERED: CEFEPIME-D2 GM/50 ML IVPB (15:29)
[2017-01-19] MEDS ORDERED: VANCOMYCIN1 GM/2502 IVPB ×2 (15:30→15:44)
[2017-01-19 16:00] VITALS: BP 131/60
--- NOTE | 2017-01-19 16:34 | Infectious Diseases Prog Note ---
Assessment/Plan Problems: (1) HCAP (healthcare-associated pneumonia) Assessment & Plan: due to MRSA and haemophilus influenza with bilateral basal consolidation complicated with parapneumonia effusion , no evidence of empyema , S/P thoracentesis, fluids for gram stain, and culture are negative. await fungal, AFB, and adenosis deaminase, continue vancomycin , and cefepime for 6 more days , and monitor CXR, watch out for recurrence (2) UTI (urinary tract infection) Assessment & Plan: with santhosh, less than 10 0000 colony, most likely colonization, recommend to change travis catheter , no need for antifungal (3) Sepsis Assessment & Plan: due to the above, with negative blood culture, continue wide spectrum antibiotics to cover for pneumonia (4) GI bleed Assessment & Plan: monitor H/H, transfuse as needed , GI is following (5) COPD exacerbation Assessment & Plan: continue nebulizer therapy, monitor CXR (6) Open nasal wound Assessment & Plan: not deep to the nasal cavity with no necrosis , no evidenc of fungal growth , and she had previously candiduria at [facility], culture here showed candda again, most likely colonizer (7) Sacral wound Assessment & Plan: continue local wound care and off loading , consult wound care (8) Recurrent fever Assessment & Plan: resolved, no evidence of empyema , rule out atypical infection such as TB , screening with gold test is pending, no need for isolation at this point , patient is not coughing . Subjective ROS Limited/Unobtainable: Yes Allergies: Coded Allergies: CODEINE (Unverified Allergy, Unknown, 01/10/17) PENICILLINS (Unverified Allergy, Unknown, 01/10/17) Subjective she is lying in bed, alert, and comfortable on mechanical ventilation through her trach, had thick white secretions today , but no fever , open eyes spontaneously not in distress Objective Vital Signs Last 24 Hour Vital Signs Date Time Temp Pulse Resp B/P (MAP) Pulse Ox O2 Delivery O2 Flow Rate FiO2 01/19/17 16:00 98.1 82 14 131/60 97 Mechanical Ventilator 35 01/19/17 15:24 84 16 35 01/19/17 15:07 94 21 98 Mechanical Ventilator 35 01/19/17 13:01 83 19 35 01/19/17 12:42 82 19 35 01/19/17 12:41 88 19 99 Mechanical Ventilator 35 01/19/17 12:00 35 01/19/17 12:00 97.7 86 14 129/57 98 Mechanical Ventilator 35 01/19/17 11:34 84 01/19/17 10:56 88 19 35 01/19/17 09:05 87 21 35 01/19/17 09:00 88 99/44 01/19/17 08:00 99.3 88 17 99/44 99 Mechanical Ventilator 35 01/19/17 08:00 35 01/19/17 07:51 88 01/19/17 07:42 95 21 98 Mechanical Ventilator 35 01/19/17 07:36 87 18 98 Mechanical Ventilator 35 01/19/17 07:26 87 18 35 01/19/17 05:25 82 20 35 01/19/17 04:15 85 01/19/17 04:00 35 01/19/17 04:00 98.0 86 22 119/50 99 Mechanical Ventilator 35 01/19/17 03:28 87 19 35 01/19/17 02:17 88 21 99 Mechanical Ventilator 35 01/19/17 01:27 80 18 97 Mechanical Ventilator 35 01/19/17 01:27 80 20 35 01/19/17 00:00 35 01/19/17 00:00 98.1 90 15 133/49 99 Mechanical Ventilator 35 01/18/17 23:52 83 01/18/17 23:19 96 19 35 01/18/17 21:33 95 20 35 01/18/17 20:00 35 01/18/17 20:00 97.5 90 19 98/43 97 Mechanical Ventilator 35 01/18/17 19:46 83 22 99 Mechanical Ventilator 35 01/18/17 19:37 89 01/18/17 19:33 92 13 35 01/18/17 19:33 92 13 97 Mechanical Ventilator 35 01/18/17 17:09 94 32 35 Height (Feet): 5 Height (Inches): 2.00 Weight (Pounds): 105 General Appearance: WD/WN, no acute distress, cachetic HEENT: normocephalic, atraumatic, anicteric, mucous membranes moist, supple, no JVD, status post trach Respiratory/Chest: chest wall non-tender, normal breath sounds, no respiratory distress, no accessory muscle use, decreased breath sounds, crackles/rales Cardiovascular: normal peripheral pulses, normal rate, regular rhythm, no gallop/murmur, no JVD Abdomen: normal bowel sounds, soft, non tender, no organomegaly, non distended , no mass, no scars Extremities: no cyanosis, no clubbing Skin: no rash, no lesions, no ulcers Neurologic/Psychiatric: alert, oriented x 3 Lymphatic: no neck adenopathy, no groin adenopathy Laboratory Tests Test 01/19/17 11:00 White Blood Count 13.6 K/UL (4.8-10.8) H Red Blood Count 3.25 M/UL (4.20-5.40) L Hemoglobin 10.2 G/DL (12.0-16.0) L Hematocrit 33.0 % (37.0-47.0) L Mean Corpuscular Volume 101 FL (80-99) H Mean Corpuscular Hemoglobin 31.2 PG (27.0-31.0) H Mean Corpuscular Hemoglobin Concent 30.8 G/DL (32.0-36.0) L Red Cell Distribution Width 14.0 % (11.6-14.8) Platelet Count 373 K/UL (150-450) Mean Platelet Volume 7.5 FL (6.5-10.1) Neutrophils (%) (Auto) 68.1 % (45.0-75.0) Lymphocytes (%) (Auto) 16.6 % (20.0-45.0) L Monocytes (%) (Auto) 11.3 % (1.0-10.0) H Eosinophils (%) (Auto) 2.1 % (0.0-3.0) Basophils (%) (Auto) 1.9 % (0.0-2.0) Sodium Level 141 MMOL/L (136-145) Potassium Level 4.7 MMOL/L (3.5-5.1) Chloride Level 106 MMOL/L (98-107) Carbon Dioxide Level 32 MMOL/L (21-32) Anion Gap 4 mmol/L (5-15) L Blood Urea Nitrogen 24 mg/dL (7-18) H Creatinine 0.8 MG/DL (0.55-1.30) Estimat Glomerular Filtration Rate mL/min (>60) Glucose Level 108 MG/DL (74-106) H Calcium Level 8.6 MG/DL (8.5-10.1) Adenosine Deaminase Pending Current Medications Medications (Trade) Dose Ordered Sig/Sky Route PRN Reason Start Time Stop Time Status Last Admin Dose Admin Acetaminophen (Tylenol) 650 mg Q6H PRN GT Mild Pain/Temp > 100.5 01/16/17 11:45 02/09/17 17:59 Acetylcysteine (Mucomyst) 200 mg Q6HRT INH 01/17/17 19:00 02/16/17 17:59 01/19/17 12:38 Albuterol/ Ipratropium (Albuterol/ Ipratropium) 3 ml Q6HRT HHN 01/17/17 01:00 01/22/17 00:59 01/19/17 12:38 Amlodipine Besylate (Norvasc) 2.5 mg DAILY GT 01/11/17 09:00 02/10/17 08:59 01/18/17 08:58 Ascorbic Acid (Vitamin C) 500 mg DAILY GT 01/11/17 09:00 02/10/17 08:59 01/19/17 09:37 Cefepime HCl 2 gm/ Dextrose 110 ml @ 220 mls/hr Q24H IVPB 01/15/17 17:00 01/22/17 16:59 01/18/17 17:27 Dextrose (Dextrose 50%) STAT PRN IV Hypoglycemia 01/10/17 14:45 02/09/17 14:44 Docusate Sodium (Colace) 250 mg DAILY NG 01/11/17 09:00 02/10/17 08:59 01/14/17 09:00 Memantine (Namenda) 10 mg DAILY GT 01/11/17 09:00 02/10/17 08:59 01/19/17 09:38 Ondansetron HCl (Zofran) 4 mg Q6H PRN IVP Nausea & Vomiting 01/10/17 14:45 02/09/17 14:44 Pantoprazole (Protonix) 40 mg EVERY 12 HOURS IVP 01/11/17 09:00 02/10/17 08:59 01/19/17 09:38 Polyethylene Glycol (Miralax) 17 gm BEDTIME GT 01/16/17 21:00 02/12/17 20:59 Risperidone (RisperDAL) 1 mg QHS GT 01/10/17 21:00 02/09/17 20:59 01/18/17 21:04 Valproic Acid (Depakene) 125 mg EVERY 12 HOURS NG 01/15/17 21:00 02/14/17 20:59 01/19/17 09:37 Vancomycin HCl (Vanco rx to dose) 1 ea DAILY PRN MISC Per rx protocol 01/10/17 12:15 01/22/17 23:59 Vancomycin HCl 500 mg/Dextrose 110 ml @ 110 mls/hr Q24H IVPB 01/15/17 00:00 01/22/17 23:59 01/19/17 01:03 Shankar Qiu M.D. Jan 19, 2017 16:34
[2017-01-20] MEDS ORDERED: CEFEPIME-D2 GM/50 ML IVPB (14:58)
[2017-01-20] MEDS ORDERED: VANCOMYCIN1 GM/2502 IVPB (15:11)
--- NOTE | 2017-01-20 15:12 | Discharge Summary ---
Discharge Summary Hospital Course Date of Admission Jan 10, 2017 at 10:05 Date of Discharge Jan 19, 2017 at 17:16 Admitting Diagnosis UPPER GI BLEED/ SEPSIS HPI Antionette Sanchez is a 76 year old female who was admitted on Jan 10, 2017 at 10: 05 for Upper Gi Bleed/Sepsis Hospital Course dc summary #[id number] Discharge Medications New Medications: Cefepime Hcl/D5w (Cefepime-Dextrose 2 Gm/50 Ml) 2 Gm/50 Ml Piggyback 2 GM IVPB Q24H, #6 BAG Vancomycin Hcl/D5w (Vancomycin-D5w 1 G/250 Ml) 1 Gm/250 Ml Plast..bag 0.5 GM IVPB Q24H, #6 BAG Continued Medications: Acetaminophen 160MG/5ML* (Acetaminophen*) 160 Mg/5 Ml Elixir 20 ML GT Q6HR PRN for For Pain, ML Acetylcysteine* (Acetylcysteine*) 100 Mg/1 Ml Vial 400 MG [id number] Q8HR, VIAL Amlodipine Besylate (Norvasc) 2.5 Mg Tablet 2.5 MG GT DAILY, TAB Arginine/Ascorbate Sod/Kell AC (Arginaid Powder) 1 Each Powd.pack 1 EACH GT, PACK Ascorbic Acid* (Vitamin C*) 500 Mg Tablet 500 MG GT DAILY, #30 TAB 0 Refills Divalproex Sodium* (Depakote*) 250 Mg Tablet.dr 125 MG GT Q12HR, TAB Docusate Sodium* (Docusate Sodium*) 250 Mg Capsule 250 MG GT DAILY for Constipation, CAP Insulin Lispro (Humalog) 100 Unit/1 Ml Cartridge Unknown Dose SUBQ, #1 UNITS 0 Refills Memantine Hcl* (Namenda*) 10 Mg Tablet 10 MG GT DAILY, TAB Multivitamins* (Multivitamins*) 1 Each Tablet 1 TAB GT DAILY, TAB 0 Refills Oxybutynin Chloride (Oxybutynin Chloride) 10 Mg Tab 5 MG ORAL DAILY, TAB Quetiapine Fumarate* (Seroquel*) 25 Mg Tablet 12.5 MG GT Q12HR, TAB Risperidone* (Risperdal*) 1 Mg Tablet 1 MG GT HS, TAB Zinc Amino Acid Chelate (Zinc) 50 Mg Tablet 50 MG GT DAILY, TAB Discharge Condition Upon Discharge: stable Discharge Disposition Patient was discharged to SNF Discharge Diagnoses: Discharge Instructions Discharge Instructions Special Instructions I have been assigned to complete a D/C Summary on this account. I was not involved in the patient management Domi Antonio NP (Vanchtein) Jan 20, 2017 15:12
--- NOTE | 2017-01-20 15:12 | Discharge Summary ---
Discharge Summary Hospital Course Date of Admission Jan 10, 2017 at 10:05 Date of Discharge Jan 19, 2017 at 17:16 Admitting Diagnosis UPPER GI BLEED/ SEPSIS HPI Antionette Sanchez is a 76 year old female who was admitted on Jan 10, 2017 at 10: 05 for Upper Gi Bleed/Sepsis Hospital Course dc summary #[id number] Discharge Medications New Medications: Cefepime Hcl/D5w (Cefepime-Dextrose 2 Gm/50 Ml) 2 Gm/50 Ml Piggyback 2 GM IVPB Q24H, #6 BAG Vancomycin Hcl/D5w (Vancomycin-D5w 1 G/250 Ml) 1 Gm/250 Ml Plast..bag 0.5 GM IVPB Q24H, #6 BAG Continued Medications: Acetaminophen 160MG/5ML* (Acetaminophen*) 160 Mg/5 Ml Elixir 20 ML GT Q6HR PRN for For Pain, ML Acetylcysteine* (Acetylcysteine*) 100 Mg/1 Ml Vial 400 MG [id number] Q8HR, VIAL Amlodipine Besylate (Norvasc) 2.5 Mg Tablet 2.5 MG GT DAILY, TAB Arginine/Ascorbate Sod/Kell AC (Arginaid Powder) 1 Each Powd.pack 1 EACH GT, PACK Ascorbic Acid* (Vitamin C*) 500 Mg Tablet 500 MG GT DAILY, #30 TAB 0 Refills Divalproex Sodium* (Depakote*) 250 Mg Tablet.dr 125 MG GT Q12HR, TAB Docusate Sodium* (Docusate Sodium*) 250 Mg Capsule 250 MG GT DAILY for Constipation, CAP Insulin Lispro (Humalog) 100 Unit/1 Ml Cartridge Unknown Dose SUBQ, #1 UNITS 0 Refills Memantine Hcl* (Namenda*) 10 Mg Tablet 10 MG GT DAILY, TAB Multivitamins* (Multivitamins*) 1 Each Tablet 1 TAB GT DAILY, TAB 0 Refills Oxybutynin Chloride (Oxybutynin Chloride) 10 Mg Tab 5 MG ORAL DAILY, TAB Quetiapine Fumarate* (Seroquel*) 25 Mg Tablet 12.5 MG GT Q12HR, TAB Risperidone* (Risperdal*) 1 Mg Tablet 1 MG GT HS, TAB Zinc Amino Acid Chelate (Zinc) 50 Mg Tablet 50 MG GT DAILY, TAB Discharge Condition Upon Discharge: stable Discharge Disposition Patient was discharged to SNF Discharge Diagnoses: Discharge Instructions Discharge Instructions Special Instructions I have been assigned to complete a D/C Summary on this account. I was not involved in the patient management Domi Antonio NP (Vanchtein) Jan 20, 2017 15:12
--- NOTE | 2017-01-20 15:12 | Discharge Summary ---
Discharge Summary Hospital Course Date of Admission Jan 10, 2017 at 10:05 Date of Discharge Jan 19, 2017 at 17:16 Admitting Diagnosis UPPER GI BLEED/ SEPSIS HPI Antionette Sanchez is a 76 year old female who was admitted on Jan 10, 2017 at 10: 05 for Upper Gi Bleed/Sepsis Hospital Course dc summary #[id number] Discharge Medications New Medications: Cefepime Hcl/D5w (Cefepime-Dextrose 2 Gm/50 Ml) 2 Gm/50 Ml Piggyback 2 GM IVPB Q24H, #6 BAG Vancomycin Hcl/D5w (Vancomycin-D5w 1 G/250 Ml) 1 Gm/250 Ml Plast..bag 0.5 GM IVPB Q24H, #6 BAG Continued Medications: Acetaminophen 160MG/5ML* (Acetaminophen*) 160 Mg/5 Ml Elixir 20 ML GT Q6HR PRN for For Pain, ML Acetylcysteine* (Acetylcysteine*) 100 Mg/1 Ml Vial 400 MG [id number] Q8HR, VIAL Amlodipine Besylate (Norvasc) 2.5 Mg Tablet 2.5 MG GT DAILY, TAB Arginine/Ascorbate Sod/Kell AC (Arginaid Powder) 1 Each Powd.pack 1 EACH GT, PACK Ascorbic Acid* (Vitamin C*) 500 Mg Tablet 500 MG GT DAILY, #30 TAB 0 Refills Divalproex Sodium* (Depakote*) 250 Mg Tablet.dr 125 MG GT Q12HR, TAB Docusate Sodium* (Docusate Sodium*) 250 Mg Capsule 250 MG GT DAILY for Constipation, CAP Insulin Lispro (Humalog) 100 Unit/1 Ml Cartridge Unknown Dose SUBQ, #1 UNITS 0 Refills Memantine Hcl* (Namenda*) 10 Mg Tablet 10 MG GT DAILY, TAB Multivitamins* (Multivitamins*) 1 Each Tablet 1 TAB GT DAILY, TAB 0 Refills Oxybutynin Chloride (Oxybutynin Chloride) 10 Mg Tab 5 MG ORAL DAILY, TAB Quetiapine Fumarate* (Seroquel*) 25 Mg Tablet 12.5 MG GT Q12HR, TAB Risperidone* (Risperdal*) 1 Mg Tablet 1 MG GT HS, TAB Zinc Amino Acid Chelate (Zinc) 50 Mg Tablet 50 MG GT DAILY, TAB Discharge Condition Upon Discharge: stable Discharge Disposition Patient was discharged to SNF Discharge Diagnoses: Discharge Instructions Discharge Instructions Special Instructions I have been assigned to complete a D/C Summary on this account. I was not involved in the patient management Domi Antonio NP (Vanchtein) Jan 20, 2017 15:12
--- NOTE | 2017-01-21 07:02 | Discharge Summary 2 SIG ---
DATE OF ADMISSION: 01/10/2017 DATE OF DISCHARGE: 01/19/2017 REASON FOR ADMISSION: 76-year-old female with chronic respiratory failure, ventilator- dependent, tracheostomy, dysphagia, G-tube, diabetes, COPD, and hypertension, [facility] due to the fever and vomiting for one day. The patient had an episode of coffee-ground emesis x1. The patient had a low-grade fever while in the subacute facility. In the emergency department, the patient was afebrile, no signs of respiratory distress on current ventilator settings. Laboratory workup revealed leucocytosis- 20.7, hemoglobin -8.2, and hematocrit- 25.5. Lactic acid -1.4. The patient was started on sepsis protocol with fluid bolus, pancultured and empiric antibiotics initiated. EKG revealed normal sinus rhythm. No acute ischemic changes. Chest x-ray revealed bilateral infiltrates, worse on the right. Urinalysis revealed pyuria, +2 leukocyte esterase, and few bacteria. The patient was admitted for further management with diagnoses of sepsis, anemia, respiratory failure, and healthcare-associated pneumonia. HOSPITAL COURSE: The patient was admitted to [facility]. ID, Pulmonary, GI, and Hematology consults were requested. Ventilator support and tracheostomy care were provided. Pulmonary toilet was provided. No signs of respiratory distress on current ventilator settings. Sputum culture revealed Haemophilus influenzae and MRSA. The patient was on treatment for hospital-care associated pneumonia as per Infectious Disease specialist, who directed antibiotic regimen. Repeated sputum cultures were negative. Blood culture were negative. Urine culture revealed Mi with small colony count, according to the ID specialist, likely colonized and no need for antifungal. CT of the chest was done due to the persistent leukocytosis and pleural effusion. It revealed massive right and large left pleural effusion resulting in compressive atelectasis of both lower lobes. The patient subsequently undergone thoracentesis on 01/16/2017 which yielded 860 mL of cloudy yellow pleural fluid. Chest x- ray after thoracentesis revealed resolved right pleural effusion. No radiographical evidence of complication. Culture of pleural fluid was negative. According to the ID specialist, no evidence of empyema. To summarize, Initially, the patient had evidence of healthcare-associated pneumonia due to the MRSA and Haemophilus influenzae with bilateral basal consolidation complicated with parapneumonic effusion. No evidence of empyema, status post thoracentesis. Per ID recommendations, continue vancomycin and cefepime for six more days. Monitor chest x-ray and watch for reoccurrence. WBC down from initial 20.7 to 13.6 prior to discharge. GI followed for the GI bleeding. The patient subsequently undergone EGD with biopsy and with summary finding of minimal distal esophagitis, distal esophageal ring gastritis and gastric polyp. Followup biopsy of stomach revealed no evidence of H. pylori. Mild chronic gastritis. No intestinal metaplasia or dysplasia. Biopsy of esophagus revealed reflux esophagitis, no fungal organisms and negative for dysplasia or malignancy. GI recommended PPI b.i.d., elevate head of the bed at all times. G-tube site care provided. Tube feeding tolerance was monitored . Patient was able to tolerate tube feeding. Hemoglobin and hematocrit were closely monitored. Per fashion designer, the patient had anemia of chronic disease. The patient required two units of packed red blood cells transfusion for hemoglobin -7.2,and hematocrit -21.8. Prior to discharge hemoglobin- 10.2, hematocrit - 33. Wound care nurse seen and evaluated the patient for sacral un-stageable decubitus ulcer, present on admission along with multiple deep tissue injuries present on admission as well. Wound care was provided as per wound care nurse recommendation. [facility]. Bowel regimen was instituted. Blood pressure was managed with current antihypertensive regimen and was stable. The patient was stable for discharge. FINAL DIAGNOSES: 1. Sepsis, 2. Healthcare-associated pneumonia with Methicillin-resistant Staphylococcus aureus and Haemophilus influenzae. 3. Possible underlying congestive heart failure. 4. Ventilator-dependent respiratory failure with tracheostomy status. 5. Large bilateral pleural effusion, right more than left. 6. Status post thoracentesis of right pleural effusion. 7. Gastrointestinal bleeding. 8. Status post esophagogastroduodenoscopy. 9. Esophagitis. 10. Gastritis. 11. Anemia of chronic disease. 12. Status post blood transfusion. 13. Hypertension 14. Sacral decubitus, present on admission, un-stageable. 15. Multiple deep tissue injuries present on admission. DISCHARGE MEDICATIONS: See medication reconciliation list. DISCHARGE INSTRUCTIONS: The [facility]. FOLLOWUP: Follow up with the medical doctor at the facility. Ali Hadadz, M.D. I have been assigned to dictate discharge summary on this account and I was not involved in the patient's management. Domi Nathansusan NVazquezPVazquez DR: Janell JOB#: [id number] CC: [id number]
--- NOTE | 2017-01-21 07:02 | Discharge Summary 2 SIG ---
DATE OF ADMISSION: 01/10/2017 DATE OF DISCHARGE: 01/19/2017 REASON FOR ADMISSION: 76-year-old female with chronic respiratory failure, ventilator- dependent, tracheostomy, dysphagia, G-tube, diabetes, COPD, and hypertension, was sent from the intermediate facility for evaluation due to the fever and vomiting for one day. The patient had an episode of coffee-ground emesis x1. The patient had a low-grade fever while in the subacute facility. In the emergency department, the patient was afebrile, no signs of respiratory distress on current ventilator settings. Laboratory workup revealed leucocytosis- 20.7, hemoglobin -8.2, and hematocrit- 25.5. Lactic acid -1.4. The patient was started on sepsis protocol with fluid bolus, pancultured and empiric antibiotics initiated. EKG revealed normal sinus rhythm. No acute ischemic changes. Chest x-ray revealed bilateral infiltrates, worse on the right. Urinalysis revealed pyuria, +2 leukocyte esterase, and few bacteria. The patient was admitted for further management with diagnoses of sepsis, anemia, respiratory failure, and healthcare-associated pneumonia. HOSPITAL COURSE: The patient was admitted to [facility]. ID, Pulmonary, GI, and Hematology consults were requested. Ventilator support and tracheostomy care were provided. Pulmonary toilet was provided. No signs of respiratory distress on current ventilator settings. Sputum culture revealed Haemophilus influenzae and MRSA. The patient was on treatment for hospital-care associated pneumonia as per Infectious Disease specialist, who directed antibiotic regimen. Repeated sputum cultures were negative. Blood culture were negative. Urine culture revealed Mi with small colony count, according to the ID specialist, likely colonized and no need for antifungal. CT of the chest was done due to the persistent leukocytosis and pleural effusion. It revealed massive right and large left pleural effusion resulting in compressive atelectasis of both lower lobes. The patient subsequently undergone thoracentesis on 01/16/2017 which yielded 860 mL of cloudy yellow pleural fluid. Chest x- ray after thoracentesis revealed resolved right pleural effusion. No radiographical evidence of complication. Culture of pleural fluid was negative. According to the ID specialist, no evidence of empyema. To summarize, Initially, the patient had evidence of healthcare-associated pneumonia due to the MRSA and Haemophilus influenzae with bilateral basal consolidation complicated with parapneumonic effusion. No evidence of empyema, status post thoracentesis. Per ID recommendations, continue vancomycin and cefepime for six more days. Monitor chest x-ray and watch for reoccurrence. WBC down from initial 20.7 to 13.6 prior to discharge. GI followed for the GI bleeding. The patient subsequently undergone EGD with biopsy and with summary finding of minimal distal esophagitis, distal esophageal ring gastritis and gastric polyp. Followup biopsy of stomach revealed no evidence of H. pylori. Mild chronic gastritis. No intestinal metaplasia or dysplasia. Biopsy of esophagus revealed reflux esophagitis, no fungal organisms and negative for dysplasia or malignancy. GI recommended PPI b.i.d., elevate head of the bed at all times. G-tube site care provided. Tube feeding tolerance was monitored . Patient was able to tolerate tube feeding. Hemoglobin and hematocrit were closely monitored. Per independent trader, the patient had anemia of chronic disease. The patient required two units of packed red blood cells transfusion for hemoglobin -7.2,and hematocrit -21.8. Prior to discharge hemoglobin- 10.2, hematocrit - 33. Wound care nurse seen and evaluated the patient for sacral un-stageable decubitus ulcer, present on admission along with multiple deep tissue injuries present on admission as well. Wound care was provided as per wound care nurse recommendation. Continue wound care at the intermediate [facility]. Bowel regimen was instituted. Blood pressure was managed with current antihypertensive regimen and was stable. The patient was stable for discharge. FINAL DIAGNOSES: 1. Sepsis, 2. Healthcare-associated pneumonia with Methicillin-resistant Staphylococcus aureus and Haemophilus influenzae. 3. Possible underlying congestive heart failure. 4. Ventilator-dependent respiratory failure with tracheostomy status. 5. Large bilateral pleural effusion, right more than left. 6. Status post thoracentesis of right pleural effusion. 7. Gastrointestinal bleeding. 8. Status post esophagogastroduodenoscopy. 9. Esophagitis. 10. Gastritis. 11. Anemia of chronic disease. 12. Status post blood transfusion. 13. Hypertension 14. Sacral decubitus, present on admission, un-stageable. 15. Multiple deep tissue injuries present on admission. DISCHARGE MEDICATIONS: See medication reconciliation list. DISCHARGE INSTRUCTIONS: The patient was discharged to the intermediate facility. FOLLOWUP: Follow up with the medical doctor at the facility. Ali Hadadz, M.D. I have been assigned to dictate discharge summary on this account and I was not involved in the patient's management. Domi Nathansusan NVazquezPVazquez DR: Janell JOB#: [id number] CC: TAMMY
--- NOTE | 2017-01-21 07:02 | Discharge Summary 2 SIG ---
DATE OF ADMISSION: 01/10/2017 DATE OF DISCHARGE: 01/19/2017 REASON FOR ADMISSION: 76-year-old female with chronic respiratory failure, ventilator- dependent, tracheostomy, dysphagia, G-tube, diabetes, COPD, and hypertension, was sent from the assisted facility for evaluation due to the fever and vomiting for one day. The patient had an episode of coffee-ground emesis x1. The patient had a low-grade fever while in the subacute facility. In the emergency department, the patient was afebrile, no signs of respiratory distress on current ventilator settings. Laboratory workup revealed leucocytosis- 20.7, hemoglobin -8.2, and hematocrit- 25.5. Lactic acid -1.4. The patient was started on sepsis protocol with fluid bolus, pancultured and empiric antibiotics initiated. EKG revealed normal sinus rhythm. No acute ischemic changes. Chest x-ray revealed bilateral infiltrates, worse on the right. Urinalysis revealed pyuria, +2 leukocyte esterase, and few bacteria. The patient was admitted for further management with diagnoses of sepsis, anemia, respiratory failure, and healthcare-associated pneumonia. HOSPITAL COURSE: The patient was admitted to [facility]. ID, Pulmonary, GI, and Hematology consults were requested. Ventilator support and tracheostomy care were provided. Pulmonary toilet was provided. No signs of respiratory distress on current ventilator settings. Sputum culture revealed Haemophilus influenzae and MRSA. The patient was on treatment for hospital-care associated pneumonia as per Infectious Disease specialist, who directed antibiotic regimen. Repeated sputum cultures were negative. Blood culture were negative. Urine culture revealed Mi with small colony count, according to the ID specialist, likely colonized and no need for antifungal. CT of the chest was done due to the persistent leukocytosis and pleural effusion. It revealed massive right and large left pleural effusion resulting in compressive atelectasis of both lower lobes. The patient subsequently undergone thoracentesis on 01/16/2017 which yielded 860 mL of cloudy yellow pleural fluid. Chest x- ray after thoracentesis revealed resolved right pleural effusion. No radiographical evidence of complication. Culture of pleural fluid was negative. According to the ID specialist, no evidence of empyema. To summarize, Initially, the patient had evidence of healthcare-associated pneumonia due to the MRSA and Haemophilus influenzae with bilateral basal consolidation complicated with parapneumonic effusion. No evidence of empyema, status post thoracentesis. Per ID recommendations, continue vancomycin and cefepime for six more days. Monitor chest x-ray and watch for reoccurrence. WBC down from initial 20.7 to 13.6 prior to discharge. GI followed for the GI bleeding. The patient subsequently undergone EGD with biopsy and with summary finding of minimal distal esophagitis, distal esophageal ring gastritis and gastric polyp. Followup biopsy of stomach revealed no evidence of H. pylori. Mild chronic gastritis. No intestinal metaplasia or dysplasia. Biopsy of esophagus revealed reflux esophagitis, no fungal organisms and negative for dysplasia or malignancy. GI recommended PPI b.i.d., elevate head of the bed at all times. G-tube site care provided. Tube feeding tolerance was monitored . Patient was able to tolerate tube feeding. Hemoglobin and hematocrit were closely monitored. Per skilled nursing facility counselor, the patient had anemia of chronic disease. The patient required two units of packed red blood cells transfusion for hemoglobin -7.2,and hematocrit -21.8. Prior to discharge hemoglobin- 10.2, hematocrit - 33. Wound care nurse seen and evaluated the patient for sacral un-stageable decubitus ulcer, present on admission along with multiple deep tissue injuries present on admission as well. Wound care was provided as per wound care nurse recommendation. Continue wound care at the assisted [facility]. Bowel regimen was instituted. Blood pressure was managed with current antihypertensive regimen and was stable. The patient was stable for discharge. FINAL DIAGNOSES: 1. Sepsis, 2. Healthcare-associated pneumonia with Methicillin-resistant Staphylococcus aureus and Haemophilus influenzae. 3. Possible underlying congestive heart failure. 4. Ventilator-dependent respiratory failure with tracheostomy status. 5. Large bilateral pleural effusion, right more than left. 6. Status post thoracentesis of right pleural effusion. 7. Gastrointestinal bleeding. 8. Status post esophagogastroduodenoscopy. 9. Esophagitis. 10. Gastritis. 11. Anemia of chronic disease. 12. Status post blood transfusion. 13. Hypertension 14. Sacral decubitus, present on admission, un-stageable. 15. Multiple deep tissue injuries present on admission. DISCHARGE MEDICATIONS: See medication reconciliation list. DISCHARGE INSTRUCTIONS: The patient was discharged to the assisted facility. FOLLOWUP: Follow up with the medical doctor at the facility. Ali Hadadz, M.D. I have been assigned to dictate discharge summary on this account and I was not involved in the patient's management. Domi Nathansusan NVazquezPVazquez DR: Janell JOB#: [id number] CC: TAMMY
== END 2017-01-19 17:16 | DRG 720 ==
LOC: EDBD 09:20 → EMR 09:52 → 2W 10:05 → EDBEDREQ 11:31 → 2W 01-11 23:06
PROC: 5A1955Z Respiratory Ventilation, Greater than 96 Consecutive Hours (ICD-10-PCS; principal; 2017-01-10)
PROC: 0DB58ZX Excision of Esophagus, Via Natural or Artificial Opening Endoscopic, Diagnostic (ICD-10-PCS; 2017-01-13)
PROC: 0DB68ZX Excision of Stomach, Via Natural or Artificial Opening Endoscopic, Diagnostic (ICD-10-PCS; 2017-01-13)
PROC: 0W993ZZ Drainage of Right Pleural Cavity, Percutaneous Approach (ICD-10-PCS; 2017-01-16)
DX: A41.9 Sepsis, unspecified organism (principal); J15.212 Pneumonia due to Methicillin resistant Staphylococcus aureus; J14 Pneumonia due to Hemophilus influenzae; J90 Pleural effusion, not elsewhere classified; Z99.11 Dependence on respirator [ventilator] status; J96.10 Chronic respiratory failure, unspecified whether with hypoxia or hypercapnia; K92.0 Hematemesis; I11.0 Hypertensive heart disease with heart failure; N39.0 Urinary tract infection, site not specified; K20.8 Other esophagitis; K29.70 Gastritis, unspecified, without bleeding; K31.7 Polyp of stomach and duodenum; R65.20 Severe sepsis without septic shock; I50.9 Heart failure, unspecified; Z93.1 Gastrostomy status; Z93.0 Tracheostomy status; R13.10 Dysphagia, unspecified; J44.1 Chronic obstructive pulmonary disease with (acute) exacerbation; G40.909 Epilepsy, unspecified, not intractable, without status epilepticus; F03.90 Unspecified dementia, unspecified severity, without behavioral disturbance, psychotic disturbance, mood disturbance, and anxiety; D62 Acute posthemorrhagic anemia; L89.150 Pressure ulcer of sacral region, unstageable; J98.11 Atelectasis; E11.9 Type 2 diabetes mellitus without complications; F39 Unspecified mood [affective] disorder
CPT/HCPCS: 36415; 71010; 71250; 80048; 80053; 80202; 81003; 82150; 82270; 82550; 82553; 82728; 82962; 83540; 83550; 83605; 83615; 83690; 83735; 83880; 84100; 84311; 84484; 85007; 85025; 85044; 85610; 85730; 86850; 86900; 86901; 86920; 87040; 87070; 87081; 87086; 87181; 87205; 89051; 93005; 93970; 94002; 94003; 94150; 94640; 94664; 99291; J0289; J7620

== ENCOUNTER 2017-05-04 16:10 | Inpatient (IN) | payer MEDICAID, MEDICARE ==
[~2017-05-04] VITALS: Ht 149.9 cm; Wt 53.5 kg
[~2017-05-04 16:10] MED LIST changes: +ACETAMINOP160 MG/5 M GT; +ACETYLCYST100 MG/1 M TRANSTR092; +ARGINAID POWDE1 EACH GT; +CEFEPIME-D2 GM/50 ML IVPB; +DOCUSATE SODIU250 MG GT; +DUONEB 0.5-3(2.53 ML HHN; +HUMALOG100 UNIT/4 SUBQ; +MULTIVITAMINS1 EAC2 GT; +NORVASC2.5 MG GT; +QUETIAPINE FUMA25 MG GT; +VANCOMYCIN1 GM/2502 IVPB; +VITAMIN C500 M1 GT; +ZINC50 M2 GT
[2017-05-04] MEDS ORDERED: DUONEB 0.5-3(2.53 ML IN-LINE ×2 (16:30→19:36)
[2017-05-04] MEDS ORDERED: OSMOLITE 1.21500 ML PO (16:30)
[2017-05-04] MEDS ORDERED: MULTIVITAMINS1 EAC8 GT (16:30)
[2017-05-04 18:04] LABS: HEMATOCRIT 27.6 % (37.0-47.0); HEMOGLOBIN 8.9 G/DL (12.0-16.0); MEAN CORPUSCULAR VOLUME 96 FL (80-99); PLATELET COUNT 380 K/UL (150-450); RED BLOOD COUNT 2.89 M/UL (4.20-5.40); RED CELL DISTRIBUTION WIDTH 12.2 % (11.6-14.8)
[2017-05-04 18:09] LABS: WHITE BLOOD COUNT 26.1 K/UL (4.8-10.8)
[2017-05-04 18:14] LABS: ANION GAP 0 mmol/L (5-15); BLOOD UREA NITROGEN 45 mg/dL (7-18); CALCIUM 8.7 MG/DL (8.5-10.1); CARBON DIOXIDE 37 MMOL/L (21-32); CHLORIDE 104 MMOL/L (98-107); CREATININE 0.9 MG/DL (0.55-1.30); POTASSIUM 4.3 MMOL/L (3.5-5.1); SODIUM 141 MMOL/L (136-145)
[2017-05-04 18:30] LABS: ALANINE AMINOTRANSFERASE 115 U/L (12-78); ALBUMIN 1.9 G/DL (3.4-5.0); ALBUMIN/GLOBULIN RATIO 0.4 (1.0-2.7); ALKALINE PHOSPHATASE 269 U/L (46-116); ASPARTATE AMINO TRANSFERASE 54 U/L (15-37); BILIRUBIN,TOTAL 0.1 MG/DL (0.2-1.0); CKMB < 0.5 NG/ML (0.0-3.6); CREATINE KINASE 28 U/L (26-308)
[2017-05-04 18:37] VITALS: BP 127/52
[2017-05-04] MEDS ORDERED: Lidocaine 1% MPF 10mg/ml 5ml ONE (18:48)
[2017-05-04] MEDS ORDERED: Haloperidol 5mg/ml Inj ONE (18:56)
[2017-05-04] MEDS ORDERED: Haloperidol 5mg/ml Inj IM ONE (19:00)
[2017-05-04] MEDS ORDERED: Lidocaine 1% MPF 10mg/ml 5ml IM ONE (19:00)
[2017-05-04 19:16] LABS: APPEARANCE,URINE CLEAR; BILIRUBIN, URINE NEGATIVE (NEGATIVE); COLOR,URINE PALE YELLOW; GLUCOSE, URINE (UA) NEGATIVE (NEGATIVE); KETONES,URINE NEGATIVE (NEGATIVE); LEUKOCYTE ESTERASE ,URINE NEGATIVE (NEGATIVE); NITRITE,URINE NEGATIVE (NEGATIVE); PH,URINE 7 (4.5-8.0); PROTEIN,URINE 2+ (NEGATIVE); UROBILINOGEN,URINE NORMAL MG/DL (0.0-1.0)
[2017-05-04] MEDS ORDERED: DEPAKENE250 MG/5 M GT (19:23)
[2017-05-04 19:24] VITALS: BP 140/66
[2017-05-04] MEDS ORDERED: OXYBUTYNIN CHLOR5 M1 GT (19:26)
[2017-05-04] MEDS ORDERED: Vancomycin 1 GM in D5W 275 ML IVPB ONE (19:30)
[2017-05-04] MEDS ORDERED: FERROUS SU220 MG/53 GT (19:36)
[2017-05-04] MEDS ORDERED: CRANBERRY425 MG GT (19:40)
[2017-05-04] MEDS ORDERED: FAMOTIDINE20 MG GT (19:43)
[2017-05-04] MEDS ORDERED: MYLANTA II30 ML GT (19:44)
--- NOTE | 2017-05-04 19:48 | Emergency Room Report ---
History of Present Illness General Chief Complaint: Fever Source: Medical Record Present Illness HPI 76-year-old female presents to ED for evaluation. Patient coming from [facility]. Reported fever times one day. Given Tylenol. Reported congestion and secretions from the trach site. Afebrile here. No signs of distress. On ventilator. Patient has MR and is unable to provide any additional history at this time. No other aggravating relieving factors. Denies any other associated symptoms Allergies: Coded Allergies: CODEINE (Unverified Allergy, Unknown, 01/10/17) PENICILLINS (Unverified Allergy, Unknown, 01/10/17) Patient History Past Medical History: DM, asthma, COPD, other - MR Past Surgical History: other - Gtube Pertinent Family History: none Social History: Denies: smoking, alcohol use, drug use Now: No Immunizations: UTD Reviewed Nursing Documentation: PMH: Agreed, PSxH: Agreed Nursing Documentation-PMH Hx Cardiac Problems: Yes Hx Pacemaker: No - ANEMIA Hx Asthma: Yes Hx COPD: Yes Hx Diabetes: Yes Hx Cancer: No Hx Gastrointestinal Problems: Yes - G-TUBE Hx Neurological Problems: Yes - mental retardation Review of Systems All Other Systems: negative except mentioned in HPI Physical Exam Vital Signs Date Time Temp Pulse Resp B/P (MAP) Pulse Ox O2 Delivery O2 Flow Rate FiO2 05/04/17 16:15 85 20 35 05/04/17 16:16 98.6 130/80 100 Mechanical Ventilator 98.6 Sp02 EP Interpretation: reviewed, normal General Appearance: no apparent distress, alert, GCS 15, non-toxic Head: normocephalic Eyes: bilateral eye normal inspection, bilateral eye PERRL ENT: normal ENT inspection Neck: normal inspection Respiratory: chest non-tender, decreased breath sounds, crackles Cardiovascular #1: regular rate, rhythm, no edema Gastrointestinal: non tender, other Rectal: normal exam Genitourinary: normal inspection, no CVA tenderness Musculoskeletal: normal inspection Neurologic: other - MR Psychiatric: other - MR Skin: normal inspection Lymphatic: normal inspection Procedures Central Line Central Line : Consent: Emergent Central Line Lumen: triple Maximal Sterile Barrier Tech: yes cap, yes mask, yes sterile gown, yes sterile gloves, yes large sterile sheet, yes hand hygiene, yes chlorhexidine prep Central Line Postion: femoral (R) Anesthesia: Lidocaine Complications: none Central Line Post Position: sutured, good blood return Attempts: One Patient Tolerated: Well Complications: None Medical Decision Making Diagnostic Impression: Primary Impression: HCAP (healthcare-associated pneumonia) Additional Impressions: Fever Qualified Codes: R50.9 - Fever, unspecified Chronic respiratory failure Qualified Codes: J96.10 - Chronic respiratory failure, unspecified whether with hypoxia or hypercapnia ER Course Hospital Course 76 yo F presents to ED for fever. cough. secretions from trach Differential diagnoses include: Pneumonia, CHF exacerbation, pneumothorax, fluid overload Clinical course Patient placed on stretcher. On monitoring manager on ventilator. After initial history and physical, labs, IV fluids, EKG, chest x-ray, blood cultures, UA. Labs - significant leukocytosis, hemoglobin/hematocrit stable, electrolytes okay , lactate okay troponins negative CXR - R lower lobe infiltrate EKG - NSR, no acute ischemic changes interpreted by me Patient has difficult IV access. Right femoral central line placed. IV fluids given. Antibiotics given Case discussed with Dr. Gomez and he agreed to the patient to his service for further care and support I feel this is a highly complex case requiring extensive working including EKG/ Rhythm strip, Xray/CT/US, Blood/urine lab work, repeat exams while in ED, and administration of strong opiates/narcotics for pain control, admission to hospital or close patient follow up. Diagnosis - HCAP, fever, chronic respiratory failure Patient admitted to [facility] in serious condition Labs Test 05/04/17 17:30 05/04/17 18:21 White Blood Count 26.1 K/UL (4.8-10.8) Red Blood Count 2.89 M/UL (4.20-5.40) Hemoglobin 8.9 G/DL (12.0-16.0) Hematocrit 27.6 % (37.0-47.0) Mean Corpuscular Volume 96 FL (80-99) Mean Corpuscular Hemoglobin 30.8 PG (27.0-31.0) Mean Corpuscular Hemoglobin Concent 32.2 G/DL (32.0-36.0) Red Cell Distribution Width 12.2 % (11.6-14.8) Platelet Count 380 K/UL (150-450) Mean Platelet Volume 8.6 FL (6.5-10.1) Neutrophils (%) (Auto) % (45.0-75.0) Lymphocytes (%) (Auto) % (20.0-45.0) Monocytes (%) (Auto) % (1.0-10.0) Eosinophils (%) (Auto) % (0.0-3.0) Basophils (%) (Auto) % (0.0-2.0) Differential Total Cells Counted 100 Neutrophils % (Manual) 87 % (45-75) Lymphocytes % (Manual) 8 % (20-45) Monocytes % (Manual) 5 % (1-10) Eosinophils % (Manual) 0 % (0-3) Basophils % (Manual) 0 % (0-2) Band Neutrophils 0 % (0-8) Platelet Estimate Adequate Platelet Morphology Normal Red Blood Cell Morphology Normal Sodium Level 141 MMOL/L (136-145) Potassium Level 4.3 MMOL/L (3.5-5.1) Chloride Level 104 MMOL/L (98-107) Carbon Dioxide Level 37 MMOL/L (21-32) Anion Gap 0 mmol/L (5-15) Blood Urea Nitrogen 45 mg/dL (7-18) Creatinine 0.9 MG/DL (0.55-1.30) Estimat Glomerular Filtration Rate mL/min (>60) Glucose Level 104 MG/DL (74-106) Lactic Acid Level 1.30 mmol/L (0.66-2.22) Calcium Level 8.7 MG/DL (8.5-10.1) Total Bilirubin 0.1 MG/DL (0.2-1.0) Aspartate Amino Transf (AST/SGOT) 54 U/L (15-37) Alanine Aminotransferase (ALT/SGPT) 115 U/L (12-78) Alkaline Phosphatase 269 U/L (46-116) Total Creatine Kinase 28 U/L (26-308) Creatine Kinase MB < 0.5 NG/ML (0.0-3.6) Creatine Kinase MB Relative Index 1.7 Troponin I 0.000 ng/mL (0.000-0.056) Pro-B-Type Natriuretic Peptide 5013 pg/mL (0-125) Total Protein 7.3 G/DL (6.4-8.2) Albumin 1.9 G/DL (3.4-5.0) Globulin 5.4 g/dL Albumin/Globulin Ratio 0.4 (1.0-2.7) Urine Color Pale yellow Urine Appearance Clear Urine pH 7 (4.5-8.0) Urine Specific [place] 1.005 (1.005-1.035) Urine Protein 2+ (NEGATIVE) Urine Glucose (UA) Negative (NEGATIVE) Urine Ketones Negative (NEGATIVE) Urine Occult Blood 2+ (NEGATIVE) Urine Nitrite Negative (NEGATIVE) Urine Bilirubin Negative (NEGATIVE) Urine Urobilinogen Normal MG/DL (0.0-1.0) Urine Leukocyte Esterase Negative (NEGATIVE) Urine RBC 2-4 /HPF (0 - 2) Urine WBC 0-2 /HPF (0 - 2) Urine Squamous Epithelial Cells Few /LPF (NONE/OCC) Urine Bacteria Few /HPF (NONE) EKG Diagnostic Results Rate: normal Rhythm: NSR ST Segments: no acute changes ASA given to the pt in ED: No Rhythm Strip Diag. Results EP Interpretation: yes Rhythm: NSR, no PVC's, no ectopy Chest X-Ray Diagnostic Results Chest X-Ray Diagnostic Results : Chest X-Ray Ordered: Yes # of Views/Limited/Complete: 1 View Indication: Shortness of Breath EP Interpretation: Yes Interpretation: no pneumothorax, other - RLL infiltrate Impression: Other - pneumonia Electronically Signed by: Electronically signed by Geo Lopes MD Last Vital Signs Date Time Temp Pulse Resp B/P (MAP) Pulse Ox O2 Delivery O2 Flow Rate FiO2 05/04/17 19:24 98.6 83 19 140/66 100 Mechanical Ventilator 35 98.6 Status: improved Disposition: ADMITTED INPATIENT Condition: Serious Referrals: Fernandez Gomez MD (PCP) GEO LOPES M.D. May 04, 2017 19:48
[2017-05-04] MEDS ORDERED: Vancomycin 1gm inj IVPB ONE (19:54)
[2017-05-04] MEDS ORDERED: LORazepam Inj 2mg/ml 1ml IV PRN (20:15)
[2017-05-04] MEDS ORDERED: Miralax 17gm pkt ORAL PRN (20:15)
[2017-05-04] MEDS ORDERED: Albuterol/Ipratropium 3ml neb HHN PRN (20:15)
[2017-05-04 21:00] VITALS: BP 140/65
[2017-05-04] MEDS: Aztreonam Inj 1 GM in NS 55 ML IVPB SCH (21:48)
[2017-05-04] MEDS: Heparin 5000 units/ml inj SUBQ SCH (21:49)
[2017-05-04] MEDS ORDERED: Pneumococcal Vaccine 25mcg/0.5ml IM ONE (23:15)
[2017-05-05] VITALS: BP_SYST 143; BP_SYST 145; BP_DIAS 77
[2017-05-05 04:00] VITALS: BP 114/75
[2017-05-05 05:24] LABS: HEMATOCRIT 26.1 % (37.0-47.0); HEMOGLOBIN 8.5 G/DL (12.0-16.0); MEAN CORPUSCULAR VOLUME 96 FL (80-99); PLATELET COUNT 373 K/UL (150-450); RED BLOOD COUNT 2.72 M/UL (4.20-5.40); RED CELL DISTRIBUTION WIDTH 12.5 % (11.6-14.8); WHITE BLOOD COUNT 19.6 K/UL (4.8-10.8)
[2017-05-05 05:36] LABS: ALBUMIN 1.8 G/DL (3.4-5.0); ANION GAP 2 mmol/L (5-15); BLOOD UREA NITROGEN 38 mg/dL (7-18); CALCIUM 8.1 MG/DL (8.5-10.1); CARBON DIOXIDE 33 MMOL/L (21-32); CHLORIDE 105 MMOL/L (98-107); CREATININE 0.9 MG/DL (0.55-1.30); PHOSPHORUS 2.7 MG/DL (2.5-4.9); POTASSIUM 4.1 MMOL/L (3.5-5.1); SODIUM 140 MMOL/L (136-145)
[2017-05-05] MEDS: Aztreonam Inj 1 GM in NS 55 ML IVPB SCH ×3 (06:38→21:38)
[2017-05-05 08:00] VITALS: BP 131/59
--- NOTE | 2017-05-05 08:49 | Diagnostic Imaging Report ---
Indication: Shortness of breath Technique: One view of the chest Comparison: 01/19/2017 Findings: There are bilateral pleural effusions demonstrated, similar in extent to the prior exam. There is bilateral patchy airspace parenchymal opacities as well as mild interstitial congestion, latter less prevalent than on previous exam. The heart is enlarged. There is a tracheostomy Impression: Bilateral pleural effusions. Bilateral pulmonary parenchymal infiltrates versus edema Cardiomegaly Tracheostomy
[2017-05-05] MEDS: Heparin 5000 units/ml inj SUBQ SCH ×2 (08:52→20:26)
[2017-05-05] MEDS ORDERED: Pantoprazole Inj IV SCH (09:00)
[2017-05-05 12:00] VITALS: BP 131/63
--- NOTE | 2017-05-05 15:05 | Consultation ---
Consult Note Consult Note asked to eval for Azotemia , Proteinyria 76-year-old female presents to ED for evaluation. Patient coming from [facility]. Reported fever times one day. Given Tylenol. Reported congestion and secretions from the trach site. Afebrile here. No signs of distress. On ventilator. Patient has MR and is unable to provide any additional history at this time. No other aggravating relieving factors. Denies any other associated symptoms Allergies: CODEINE (Unverified Allergy, Unknown, 01/10/17) PENICILLINS (Unverified Allergy, Unknown, 01/10/17) Past Medical History: DM, asthma, COPD, other - MR Past Surgical History: other - Gtube Hx Cardiac Problems: Yes Hx Pacemaker: No - ANEMIA Hx Asthma: Yes Hx COPD: Yes Hx Diabetes: Yes Hx Gastrointestinal Problems: Yes - G-TUBE Hx Neurological Problems: Yes - mental retardation examined- data reviewed . Assessment/Plan 76 y old- Admitted with fever & Pneumonia - Has chronic Respiratory failure Mild Azotemia- Proteinuria likely Diabetic Nephropathy HypoAlbuminemia, r/o Nephrotic Syndrom Anemia , etiology?? PEG Plan: Pulmonary support- AntiBiotics Anemia workup Keep BP and BS in check Urine studies PARVIZ ALFARO May 05, 2017 15:05
--- NOTE | 2017-05-05 15:16 | Cardiology Report ---
APPROVED REPORT EKG Measurement Heart [id number] MI [id number] Normal sinus rhythm Normal ECG
--- NOTE | 2017-05-05 15:59 | Consultation ---
History of Present Illness General Date patient seen: May 05, 2017 Time patient seen: 14:30 Chief Complaint: fever Referring physician: dr Ledezma Reason for Consultation: resp varun, JUANJO Present Illness HPI 76-year-old female, resident of SNF, with PMH of VDRF, trach status, COPD, HTN , DM, dysphagia, G tube presented to ED for evaluation for fever. Fever in SNF x 1 , given Tylenol afebrile in ED ' Nursing staff also reported congestion and secretions from the trach site. Labs revealed significant leukocytosis, hemoglobin/hematocrit and electrolytes stable, lactate stable troponin negative CXR with R lower lobe infiltrate EKG - NSR, no acute ischemic changes Patient was admitted for further management Allergies: Coded Allergies: CODEINE (Unverified Allergy, Unknown, 01/10/17) PENICILLINS (Unverified Allergy, Unknown, 01/10/17) Medication History Scheduled Acetylcysteine* (Acetylcysteine*), 400 MG [id number] Q8HR, (Reported) Amlodipine Besylate (Norvasc), 2.5 MG GT DAILY, (Reported) Ascorbic Acid* (Vitamin C*), 500 MG GT DAILY, (Reported) Cranberry Extract (Cranberry), 425 MG GT DAILY, (Reported) Docusate Sodium* (Docusate Sodium*), 250 MG GT DAILY, (Reported) Famotidine (Famotidine), 20 MG GT DAILY, (Reported) Ferrous Sulfate (Ferrous Sulfate), 7.5 ML GT TID, (Reported) Ipratropium/Albuterol Sulfate (DuoNeb 0.5-3(2.5)mg/3ml), 3 ML IN-LINE Q4HR, ( Reported) Memantine Hcl* (Namenda*), 10 MG GT DAILY, (Reported) Multivitamin With Minerals (Multivitamins With Minerals*), 1 TAB GT DAILY, ( Reported) Oxybutynin Chloride (Oxybutynin Chloride), 5 MG GT DAILY, (Reported) Valproate Sodium (Depakene), 250 MG GT BID, (Reported) Scheduled PRN Acetaminophen 160MG/5ML* (Acetaminophen*), 20 ML GT Q6HR PRN for Mild Pain/Temp > 100.5, (Reported) Al Hydroxide/mg Hydroxide (Mag-Al Plus Suspension), 30 ML GT Q4HR PRN for DYSPEPSIA, INDIGESTION, (Reported) Ipratropium/Albuterol Sulfate (DuoNeb 0.5-3(2.5)mg/3ml), 3 ML IN-LINE Q2HR PRN for Shortness of Breath, (Reported) Miscellaneous Medications Insulin Lispro (Humalog), Unknown Dose SUBQ, (Reported) Lactose-Reduced Food (Osmolite 1.2 Anatoly), 1,500 ML PO, (Reported) Discontinued Medications Arginine/Ascorbate Sod/Kell AC (Arginaid Powder), 1 EACH GT, (Reported) Discontinued Reason: Therapy completed Cefepime Hcl/D5w (Cefepime-Dextrose 2 Gm/50 Ml), 2 GM IVPB Q24H, (Reported) Discontinued Reason: Therapy completed Cefepime Hcl/D5w (Cefepime-Dextrose 2 Gm/50 Ml), 2 GM IVPB Q24H Discontinued Reason: Therapy completed Divalproex Sodium* (Depakote*), 125 MG GT Q12HR, (Reported) Discontinued Reason: Prescription changed Multivitamins* (Multivitamins*), 1 TAB GT DAILY, (Reported) Discontinued Reason: Therapy completed Quetiapine Fumarate* (Seroquel*), 12.5 MG GT Q12HR, (Reported) Discontinued Reason: Therapy completed Risperidone* (Risperdal*), 1 MG GT HS, (Reported) Discontinued Reason: Therapy completed Vancomycin Hcl/D5w (Vancomycin-D5w 1 G/250 Ml), 0.5 GM IVPB Q24H Discontinued Reason: Therapy completed Zinc Amino Acid Chelate (Zinc), 50 MG GT DAILY, (Reported) Discontinued Reason: Therapy completed Patient History History Provided By: Patient Healthcare decision maker Resuscitation status Full Code Advanced Directive on File No Review of Systems ROS Narrative unable to obtain 2 to vent status Physical Exam General Appearance: no apparent distress, other - bedridden vent dependent female on vent AC 400-35%-10 Lines, tubes and drains: central line - R femoral , trach - Portex#8,s eretions small, white, thick , gtube HEENT: normocephalic, atraumatic Neck: non-tender, supple Respiratory/Chest: rhonchi - bilaterally - few scattered rhonchi Cardiovascular/Chest: regular rhythm - ST on tele Neurologic: no motor/sensory deficits - bedridden , alert Musculoskeletal: atrophy - BLE Last 24 Hour Vital Signs Date Time Temp Pulse Resp B/P (MAP) Pulse Ox O2 Delivery O2 Flow Rate FiO2 05/05/17 14:34 68 17 35 05/05/17 12:43 67 17 35 05/05/17 12:02 78 05/05/17 12:00 97.3 77 18 131/63 97 Mechanical Ventilator 35 05/05/17 12:00 35 05/05/17 10:32 69 19 35 05/05/17 08:49 84 131/59 05/05/17 08:45 65 16 35 05/05/17 08:00 35 05/05/17 08:00 97.8 84 24 131/59 99 Mechanical Ventilator 35 05/05/17 07:45 79 05/05/17 07:05 91 18 35 05/05/17 05:09 89 10 35 05/05/17 04:00 97.8 86 16 114/75 98 Mechanical Ventilator 05/05/17 04:00 86 05/05/17 04:00 86 05/05/17 03:07 81 22 35 05/05/17 01:20 98 12 35 05/05/17 00:00 98.5 87 16 145/77 99 Mechanical Ventilator 05/05/17 00:00 98.5 87 16 143/77 99 Mechanical Ventilator 35 05/04/17 23:34 35 05/04/17 23:04 103 10 35 05/04/17 21:12 83 05/04/17 21:02 99 15 35 05/04/17 21:00 98.3 84 16 140/65 100 Mechanical Ventilator 35 05/04/17 20:35 98.6 83 19 140/66 100 Mechanical Ventilator 35 98.6 05/04/17 19:24 98.6 83 19 140/66 100 Mechanical Ventilator 35 98.6 05/04/17 19:20 97 13 35 05/04/17 18:37 98.6 83 16 127/52 100 Mechanical Ventilator 35 98.6 05/04/17 16:16 98.6 83 16 130/80 100 Mechanical Ventilator 98.6 05/04/17 16:15 85 20 35 Intake and Output 05/04/17 05/05/17 19:00 07:00 Intake Total 180 ml Balance 180 ml Tube Feeding 180 ml # Voids 1 3 # Bowel Movements 1 Laboratory Tests Test 05/04/17 17:30 2/19/18 18:21 05/05/17 05:00 White Blood Count 26.1 K/UL (4.8-10.8) *H 19.6 K/UL (4.8-10.8) H Red Blood Count 2.89 M/UL (4.20-5.40) L 2.72 M/UL (4.20-5.40) L Hemoglobin 8.9 G/DL (12.0-16.0) L 8.5 G/DL (12.0-16.0) L Hematocrit 27.6 % (37.0-47.0) L 26.1 % (37.0-47.0) L Mean Corpuscular Volume 96 FL (80-99) 96 FL (80-99) Mean Corpuscular Hemoglobin 30.8 PG (27.0-31.0) 31.3 PG (27.0-31.0) H Mean Corpuscular Hemoglobin Concent 32.2 G/DL (32.0-36.0) 32.6 G/DL (32.0-36.0) Red Cell Distribution Width 12.2 % (11.6-14.8) 12.5 % (11.6-14.8) Platelet Count 380 K/UL (150-450) 373 K/UL (150-450) Mean Platelet Volume 8.6 FL (6.5-10.1) 8.2 FL (6.5-10.1) Neutrophils (%) (Auto) % (45.0-75.0) % (45.0-75.0) Lymphocytes (%) (Auto) % (20.0-45.0) % (20.0-45.0) Monocytes (%) (Auto) % (1.0-10.0) % (1.0-10.0) Eosinophils (%) (Auto) % (0.0-3.0) % (0.0-3.0) Basophils (%) (Auto) % (0.0-2.0) % (0.0-2.0) Differential Total Cells Counted 100 100 Neutrophils % (Manual) 87 % (45-75) H 84 % (45-75) H Lymphocytes % (Manual) 8 % (20-45) L 3 % (20-45) L Monocytes % (Manual) 5 % (1-10) 8 % (1-10) Eosinophils % (Manual) 0 % (0-3) 1 % (0-3) Basophils % (Manual) 0 % (0-2) 0 % (0-2) Band Neutrophils 0 % (0-8) 4 % (0-8) Platelet Estimate Adequate Adequate Platelet Morphology Normal Normal Red Blood Cell Morphology Normal Normal Sodium Level 141 MMOL/L (136-145) 140 MMOL/L (136-145) Potassium Level 4.3 MMOL/L (3.5-5.1) 4.1 MMOL/L (3.5-5.1) Chloride Level 104 MMOL/L (98-107) 105 MMOL/L (98-107) Carbon Dioxide Level 37 MMOL/L (21-32) H 33 MMOL/L (21-32) H Anion Gap 0 mmol/L (5-15) L 2 mmol/L (5-15) L Blood Urea Nitrogen 45 mg/dL (7-18) H 38 mg/dL (7-18) H Creatinine 0.9 MG/DL (0.55-1.30) 0.9 MG/DL (0.55-1.30) Estimat Glomerular Filtration Rate mL/min (>60) mL/min (>60) Glucose Level 104 MG/DL (74-106) 107 MG/DL (74-106) H Lactic Acid Level 1.30 mmol/L (0.66-2.22) Calcium Level 8.7 MG/DL (8.5-10.1) 8.1 MG/DL (8.5-10.1) L Total Bilirubin 0.1 MG/DL (0.2-1.0) L Aspartate Amino Transf (AST/SGOT) 54 U/L (15-37) H Alanine Aminotransferase (ALT/SGPT) 115 U/L (12-78) H Alkaline Phosphatase 269 U/L (46-116) H Total Creatine Kinase 28 U/L (26-308) Creatine Kinase MB < 0.5 NG/ML (0.0-3.6) Creatine Kinase MB Relative Index 1.7 Troponin I 0.000 ng/mL (0.000-0.056) Pro-B-Type Natriuretic Peptide 5013 pg/mL (0-125) H Total Protein 7.3 G/DL (6.4-8.2) Albumin 1.9 G/DL (3.4-5.0) L 1.8 G/DL (3.4-5.0) L Globulin 5.4 g/dL Albumin/Globulin Ratio 0.4 (1.0-2.7) L Urine Color Pale yellow Urine Appearance Clear Urine pH 7 (4.5-8.0) Urine Specific [place] 1.005 (1.005-1.035) Urine Protein 2+ (NEGATIVE) H Urine Glucose (UA) Negative (NEGATIVE) Urine Ketones Negative (NEGATIVE) Urine Occult Blood 2+ (NEGATIVE) H Urine Nitrite Negative (NEGATIVE) Urine Bilirubin Negative (NEGATIVE) Urine Urobilinogen Normal MG/DL (0.0-1.0) Urine Leukocyte Esterase Negative (NEGATIVE) Urine RBC 2-4 /HPF (0 - 2) H Urine WBC 0-2 /HPF (0 - 2) Urine Squamous Epithelial Cells Few /LPF (NONE/OCC) Urine Bacteria Few /HPF (NONE) Phosphorus Level 2.7 MG/DL (2.5-4.9) Ferritin 323 NG/ML (8-388) C-Reactive Protein, Quantitative Pending Microbiology Date/Time Source Procedure Growth Status 05/05/17 03:15 Sputum Gram Stain - Final Resulted 05/05/17 03:15 Sputum Sputum Culture Pending Resulted 05/04/17 19:39 Nasal Nares Influenza Types A,B Antigen (ROD) - Final Complete Height (Feet): 4 Height (Inches): 11.00 Weight (Pounds): 111 Medications Current Medications Medications (Trade) Dose Ordered Sig/Sky Route PRN Reason Start Time Stop Time Status Last Admin Dose Admin Acetaminophen (Tylenol) 650 mg Q4H PRN ORAL T>100.5 05/04/17 20:15 06/03/17 20:14 Albuterol/ Ipratropium (Albuterol/ Ipratropium) 3 ml Q4H PRN HHN Shortness of Breath 05/04/17 20:15 05/09/17 20:14 Amlodipine Besylate (Norvasc) 2.5 mg DAILY GT 05/05/17 09:00 06/04/17 08:59 05/05/17 08:49 Aztreonam 1 gm/ Sodium Chloride 55 ml @ 110 mls/hr Q8HR IVPB 2/19/18 22:00 05/11/17 21:59 05/05/17 13:21 Chlorhexidine Gluconate (Myra-Hex 2%) 1 applic DAILY@2000 TOPIC 05/05/17 20:00 06/04/17 19:59 Dextrose (Dextrose 50%) STAT PRN IV Hypoglycemia 05/04/17 20:15 06/03/17 20:14 Heparin Sodium (Porcine) (Heparin 5000 units/ml) 5,000 units EVERY 12 HOURS SUBQ 05/04/17 21:00 06/03/17 20:59 05/05/17 08:52 Lorazepam (Ativan 2mg/ml 1ml) 2 mg Q2H PRN IV For Anxiety 05/04/17 20:15 05/11/17 20:14 Ondansetron HCl (Zofran) 4 mg Q6H PRN IVP Nausea & Vomiting 05/04/17 20:15 06/03/17 20:14 Pantoprazole (Protonix) 40 mg Q12HR IV 05/05/17 21:00 06/04/17 08:59 Polyethylene Glycol (Miralax) 17 gm DAILYPRN PRN ORAL Constipation 05/04/17 20:15 06/03/17 20:14 Vancomycin HCl (Vanco rx to dose) 1 ea DAILY PRN MISC Per rx protocol 05/04/17 21:00 06/03/17 20:59 Vancomycin HCl/ Dextrose 250 ml @ 166.667 mls/hr Q24H IVPB 05/05/17 20:00 05/10/17 19:59 Assessment/Plan Assessment/Plan ASSESSMENT possible sepsis HCAP Acute on chronic RF dehydration VDRF/trach status dysphagia, G tube HTN DM protein calorie malnutrition anemia PLAN OF CARE TAYA vent support trach care pulm toilet baseline ABG and titrate settings as needed empiric abx ID consult fup with cx Fup with XR strict aspiration precautions, GT feeding, monitor tolerance, site care IVF, monitor renal parameters, correct lytes as needed, avoid nephrotoxic BS management with SS of insulin,check HgA1c BP management with CCB and optimize further as needed DVT GI prophylaxis Bowel regimen dietary eval monitor HH, transfuse prn, anemia w/up case discussed and evaluated by supervising physician case discussed and evaluated by supervising physician Paco ([facility]),Domi ANTONIO May 05, 2017 15:59
[2017-05-05 16:00] VITALS: BP 149/71
[2017-05-05] MEDS ORDERED: D5 1/2NS 1,000 ML IV SCH (16:30)
[2017-05-05] MEDS ORDERED: NovoLOG Insulin Flexpen SUBQ SCH (16:30)
[2017-05-05] MEDS ORDERED: Tubing IV Secondary IV ONE (16:51)
[2017-05-05] MEDS ORDERED: NS 275ml ONE (16:51)
[2017-05-05] MEDS: NovoLOG Insulin Flexpen SUBQ SCH (17:02)
[2017-05-05 20:00] VITALS: BP 145/70
--- NOTE | 2017-05-05 20:15 | Consultation ---
DATE OF CONSULTATION: 05/05/2017 INFECTIOUS DISEASES CONSULTATION PRIMARY ATTENDING PHYSICIAN: Fernandez Gomez M.D. REASON FOR CONSULT: Pneumonia. HISTORY OF PRESENT ILLNESS: The patient is a 76-year-old white female, who is a senior care resident, admitted yesterday because of fever, had a temperature of 101.3 degrees in the nursing facility, has increased secretion from the tracheostomy site. The patient has chronic respiratory failure and cannot provide detailed history. PAST MEDICAL HISTORY: Significant for ventilator-dependent respiratory failure, diabetes mellitus, asthma, COPD, G-tube feeding, status post tracheostomy, anemia, has history of MRSA infection before, has history of previous admission in 01/2017 with healthcare-associated pneumonia to MRSA and haemophilus influenza, and has history of GI bleeding. MEDICATIONS: Vancomycin, chlorhexidine, amlodipine, Protonix, Azactam, Tylenol, MiraLAX, Zofran and lorazepam. ALLERGIES: Allergic to codeine and penicillin. SOCIAL HISTORY: shelter resident. Single. No other history obtainable. PHYSICAL EXAMINATION: GENERAL APPEARANCE: Seems to be thin. No acute distress at the time of exam. VITAL SIGNS: Temperature 97.3 degrees, afebrile in the hospital, pulse 77, and blood pressure 131/63. HEAD AND NECK: Status post tracheostomy. Erythema of conjunctiva bilaterally that just involves the eyelid. HEART: Normal rate. Regular. LUNGS: Bilateral rhonchi. The patient is on mechanical ventilator. ABDOMEN: Soft. Status post G tube placement. EXTREMITY: She has no edema. The patient has right femoral line. LABORATORY AND DIAGNOSTIC DATA: WBC was 26.1 yesterday coming to 19.6 today, hemoglobin 8.5, hematocrit 26.1, and platelets 373. Sodium 140, potassium 4.1, chloride 105, bicarbonate 33, BUN 38, creatinine 0.9 and glucose is 107. AST elevated at 54, ALT 115 and alkaline phosphatase was also elevated to 69. BNP elevated 5013. Lactic acid level was within normal limits. Albumin is 1.9. Chest x-ray showed bilateral pleural effusion, bilateral pulmonary parenchymal infiltrates versus edema. IMPRESSION: 1. Pneumonia. 2. The patient has ventilator-dependent respiratory failure. 3. Chronic obstructive pulmonary disease. 4. Anemia. 5. History of methicillin-resistant Staphylococcus aureus in the past. 6. Elevated liver function tests. RECOMMENDATION: We will continue with vancomycin and Azactam. We will follow up the culture. We will follow up the liver function tests and previous charts for evaluation for biliary disease. At the end of my exam, I thank Dr. Gomez, for involving me in the care of this patient. Francisco Gonzalez M.D. DR: SERENITY JOB#: [id number] CC:
[2017-05-05] MEDS: Dyna-Hex 2% Top Sol 2oz TOPIC SCH (20:24)
[2017-05-05] MEDS: Vancomycin 1250mg/D5W 250ml IVPB SCH (20:24)
[2017-05-05] MEDS: Pantoprazole Inj IV SCH (20:25)
[2017-05-06] VITALS: BP 143/86
--- NOTE | 2017-05-06 01:15 | History and Physical Report ---
DATE OF ADMISSION: 05/04/2017 HISTORY OF PRESENT ILLNESS: The patient admitted for sepsis and fever of 101.3 degrees at the [facility], admitted for pneumonia. The patient has trach and vent, cannot get any history from the patient. The patient also has poor IV access. The patient has leukocytosis, azotemia as well as anemia. Cannot get any history from the patient. PAST MEDICAL HISTORY: Significant for hypertension, constipation, GERD, iron-deficiency anemia, NIDDM, organic brain syndrome, urinary incontinence, and mood disorder. Also chronic respiratory insufficiency. PAST SURGICAL HISTORY: Trach and PEG. ALLERGIES: To codeine and penicillin. MEDICATIONS: Norvasc, vitamin C, Colace, famotidine, ferrous sulfate, insulin, oxybutynin, and Depakote. FAMILY HISTORY: Unable to obtain. SOCIAL HISTORY: Unable to obtain. REVIEW OF SYSTEMS: Unable to obtain. PHYSICAL EXAMINATION: VITAL SIGNS: Temperature is 97.9 degrees, pulse is 99, blood pressure was 149/71. HEENT: PERRLA. NECK: Supple. No lymphadenopathy. Trach site is intact. CHEST: Clear to auscultation. CARDIOVASCULAR: Tachycardic. GASTROINTESTINAL: Soft. Positive bowel sounds. G-tube site is intact. EXTREMITIES: Reflexes equal on both sides, has edema, confused. For the skin and integumentary, refer to the nursing notes. LABORATORY AND DIAGNOSTIC DATA: Whit count is 12.6, hemoglobin of 8.9 and platelets of 380. Sodium 140, potassium 4.1, chloride 105, BUN of 38, creatinine 0.9, and glucose of 107. ASSESSMENT AND PLAN: 1. Leukocytosis. 2. Fever. 3. Sepsis. 4. Pneumonia on the x-ray. 5. Elevated carbon dioxide. I have asked Dr. Woods as well as Dr. Blanca, and Dr. Quiles to see the patient for the above-mentioned diagnoses and treatment. Antibiotics per Dr. Jodi Quiles. Fernandez Gomez M.D. DR: FRED JOB#: [id number] CC:
[2017-05-06 04:00] VITALS: BP 131/64
[2017-05-06 05:52] LABS: BASOPHILS % (AUTO) 0.6 % (0.0-2.0); EOSINOPHILS % (AUTO) 3.5 % (0.0-3.0); HEMATOCRIT 25.9 % (37.0-47.0); HEMOGLOBIN 8.5 G/DL (12.0-16.0); LYMPHOCYTES % (AUTO) 6.5 % (20.0-45.0); MEAN CORPUSCULAR VOLUME 96 FL (80-99); MONOCYTES % (AUTO) 7.7 % (1.0-10.0); NEUTROPHILS % (AUTO) 81.7 % (45.0-75.0); PLATELET COUNT 393 K/UL (150-450); RED BLOOD COUNT 2.69 M/UL (4.20-5.40); RED CELL DISTRIBUTION WIDTH 12.6 % (11.6-14.8); WHITE BLOOD COUNT 16.9 K/UL (4.8-10.8)
[2017-05-06] MEDS: NovoLOG Insulin Flexpen SUBQ SCH ×4 (06:00→17:00)
[2017-05-06] MEDS: Aztreonam Inj 1 GM in NS 55 ML IVPB SCH ×3 (06:01→23:16)
[2017-05-06 07:09] LABS: ALANINE AMINOTRANSFERASE 63 U/L (12-78); ALBUMIN 1.8 G/DL (3.4-5.0); ALBUMIN/GLOBULIN RATIO 0.4 (1.0-2.7); ALKALINE PHOSPHATASE 215 U/L (46-116); ANION GAP 5 mmol/L (5-15); ASPARTATE AMINO TRANSFERASE 19 U/L (15-37); BILIRUBIN,TOTAL 0.2 MG/DL (0.2-1.0); BLOOD UREA NITROGEN 31 mg/dL (7-18); CALCIUM 8.3 MG/DL (8.5-10.1); CARBON DIOXIDE 30 MMOL/L (21-32); CHLORIDE 103 MMOL/L (98-107); CHOLESTEROL 120 MG/DL (< 200); CREATINE KINASE 33 U/L (26-308); GAMMA GLUTAMYL TRANSPEPTIDASE 173 U/L (5-85); HDL CHOLESTEROL 26 MG/DL (40-60); PHOSPHORUS 3.5 MG/DL (2.5-4.9); POTASSIUM 3.8 MMOL/L (3.5-5.1); SODIUM 138 MMOL/L (136-145); TRIGLYCERIDES 118 MG/DL (30-150)
[2017-05-06 07:34] LABS: % IRON SATURATION 9 % (15-50); IRON 19 ug/dL (50-175); TOTAL IRON BINDING CAPACITY 204 ug/dL (250-450)
[2017-05-06 08:00] VITALS: BP 140/82
[2017-05-06] MEDS: Pantoprazole Inj IV SCH (10:29)
[2017-05-06] MEDS: Heparin 5000 units/ml inj SUBQ SCH ×2 (10:31→21:10)
--- NOTE | 2017-05-06 10:45 | Infectious Diseases Prog Note ---
Assessment/Plan Assessment/Plan A; Pneumonia VDRF COPD Anemia Penicillin allergy P; Continue Azactam & Vancomycin will f/u cultures Subjective ROS Limited/Unobtainable: Yes Constitutional: Reports: no symptoms Respiratory: Reports: other - copious secretions Allergies: Coded Allergies: CODEINE (Unverified Allergy, Unknown, 01/10/17) PENICILLINS (Unverified Allergy, Unknown, 01/10/17) Objective Vital Signs Last 24 Hour Vital Signs Date Time Temp Pulse Resp B/P (MAP) Pulse Ox O2 Delivery O2 Flow Rate FiO2 05/06/17 10:19 98 140/82 05/06/17 09:36 98 17 35 05/06/17 08:00 35 05/06/17 08:00 97.5 75 18 140/82 99 Mechanical Ventilator 35 97.5 05/06/17 07:59 82 22 35 05/06/17 05:20 88 19 35 05/06/17 04:00 35 05/06/17 04:00 98.4 74 16 131/64 98 Mechanical Ventilator 35 98.4 05/06/17 03:47 77 05/06/17 03:07 82 22 35 05/06/17 01:41 75 27 35 05/06/17 00:02 78 05/06/17 00:00 98.1 84 20 143/86 98 Mechanical Ventilator 35 98.1 05/06/17 00:00 35 05/05/17 22:59 82 14 35 05/05/17 21:05 75 34 35 05/05/17 20:00 97.8 74 23 145/70 98 Mechanical Ventilator 35 97.8 05/05/17 20:00 82 05/05/17 20:00 35 05/05/17 19:41 72 22 35 05/05/17 17:11 76 22 35 05/05/17 16:00 35 05/05/17 16:00 97.9 99 18 149/71 96 Mechanical Ventilator 35 05/05/17 16:00 69 05/05/17 14:34 68 17 35 05/05/17 12:43 67 17 35 05/05/17 12:02 78 05/05/17 12:00 97.3 77 18 131/63 97 Mechanical Ventilator 35 05/05/17 12:00 35 Height (Feet): 4 Height (Inches): 11.00 Weight (Pounds): 120 General Appearance: no acute distress HEENT: status post trach Respiratory/Chest: other - few rhochi on ventilator Cardiovascular: normal rate, other - R femoral line Abdomen: soft, non tender, other - GT feeding Extremities: no edema Skin: other - nasal tip lesion Neurologic/Psychiatric: alert, responsive Microbiology Date/Time Source Procedure Growth Status 05/04/17 17:50 Blood Blood Culture - Preliminary NO GROWTH AFTER 24 HOURS Resulted 05/04/17 17:30 Blood Blood Culture - Preliminary NO GROWTH AFTER 24 HOURS Resulted 05/05/17 03:15 Sputum Gram Stain - Final Resulted 05/05/17 03:15 Sputum Sputum Culture Pending Resulted 05/04/17 19:39 Nasal Nares Influenza Types A,B Antigen (ROD) - Final Complete Laboratory Tests Test 05/06/17 04:10 White Blood Count 16.9 K/UL (4.8-10.8) H Red Blood Count 2.69 M/UL (4.20-5.40) L Hemoglobin 8.5 G/DL (12.0-16.0) L Hematocrit 25.9 % (37.0-47.0) L Mean Corpuscular Volume 96 FL (80-99) Mean Corpuscular Hemoglobin 31.4 PG (27.0-31.0) H Mean Corpuscular Hemoglobin Concent 32.6 G/DL (32.0-36.0) Red Cell Distribution Width 12.6 % (11.6-14.8) Platelet Count 393 K/UL (150-450) Mean Platelet Volume 8.5 FL (6.5-10.1) Neutrophils (%) (Auto) 81.7 % (45.0-75.0) H Lymphocytes (%) (Auto) 6.5 % (20.0-45.0) L Monocytes (%) (Auto) 7.7 % (1.0-10.0) Eosinophils (%) (Auto) 3.5 % (0.0-3.0) H Basophils (%) (Auto) 0.6 % (0.0-2.0) Sodium Level 138 MMOL/L (136-145) Potassium Level 3.8 MMOL/L (3.5-5.1) Chloride Level 103 MMOL/L (98-107) Carbon Dioxide Level 30 MMOL/L (21-32) Anion Gap 5 mmol/L (5-15) Blood Urea Nitrogen 31 mg/dL (7-18) H Creatinine 1.0 MG/DL (0.55-1.30) Estimat Glomerular Filtration Rate mL/min (>60) Glucose Level 135 MG/DL (74-106) H Hemoglobin A1c 5.0 % (4.3-6.0) Uric Acid 4.6 MG/DL (2.6-7.2) Calcium Level 8.3 MG/DL (8.5-10.1) L Phosphorus Level 3.5 MG/DL (2.5-4.9) Magnesium Level 2.0 MG/DL (1.8-2.4) Iron Level 19 ug/dL (50-175) L Total Iron Binding Capacity 204 ug/dL (250-450) L Percent Iron Saturation 9 % (15-50) L Unsaturated Iron Binding 185 ug/dL (112-346) Total Bilirubin 0.2 MG/DL (0.2-1.0) Gamma Glutamyl Transpeptidase 173 U/L (5-85) H Aspartate Amino Transf (AST/SGOT) 19 U/L (15-37) Alanine Aminotransferase (ALT/SGPT) 63 U/L (12-78) Alkaline Phosphatase 215 U/L (46-116) H Total Creatine Kinase 33 U/L (26-308) Troponin I 0.000 ng/mL (0.000-0.056) Pro-B-Type Natriuretic Peptide 2699 pg/mL (0-125) H Total Protein 6.6 G/DL (6.4-8.2) Albumin 1.8 G/DL (3.4-5.0) L Globulin 4.8 g/dL Albumin/Globulin Ratio 0.4 (1.0-2.7) L Triglycerides Level 118 MG/DL (30-150) Cholesterol Level 120 MG/DL (< 200) LDL Cholesterol 70 mg/dL (<100) HDL Cholesterol 26 MG/DL (40-60) L Cholesterol/HDL Ratio 4.6 (3.3-4.4) H Vitamin B12 Level 941 PG/ML (193-986) Folate 39.5 NG/ML (8.6-58.9) Thyroid Stimulating Hormone (TSH) 3.472 uiU/mL (0.358-3.740) Current Medications Medications (Trade) Dose Ordered Sig/Sky Route PRN Reason Start Time Stop Time Status Last Admin Dose Admin Acetaminophen (Tylenol) 650 mg Q4H PRN ORAL T>100.5 05/04/17 20:15 06/03/17 20:14 05/06/17 01:56 Albuterol/ Ipratropium (Albuterol/ Ipratropium) 3 ml Q4H PRN HHN Shortness of Breath 05/04/17 20:15 05/09/17 20:14 Amlodipine Besylate (Norvasc) 2.5 mg DAILY GT 05/05/17 09:00 06/04/17 08:59 05/06/17 10:19 Aztreonam 1 gm/ Sodium Chloride 55 ml @ 110 mls/hr Q8HR IVPB 05/04/17 22:00 05/11/17 21:59 05/06/17 06:01 Chlorhexidine Gluconate (Myra-Hex 2%) 1 applic DAILY@2000 TOPIC 05/05/17 20:00 06/04/17 19:59 05/05/17 20:24 Dextrose (Dextrose 50%) STAT PRN IV Hypoglycemia 05/05/17 16:00 06/04/17 15:59 Dextrose/Sodium Chloride 1,000 ml @ 50 mls/hr Q20H IV 05/05/17 16:30 06/04/17 16:29 05/05/17 17:00 Heparin Sodium (Porcine) (Heparin 5000 units/ml) 5,000 units EVERY 12 HOURS SUBQ 05/04/17 21:00 06/03/17 20:59 05/06/17 10:31 Insulin Aspart (NovoLOG) EVERY 6 HOURS SUBQ 05/05/17 18:00 06/04/17 16:29 05/05/17 17:02 Lorazepam (Ativan 2mg/ml 1ml) 2 mg Q2H PRN IV For Anxiety 05/04/17 20:15 05/11/17 20:14 Ondansetron HCl (Zofran) 4 mg Q6H PRN IVP Nausea & Vomiting 05/04/17 20:15 06/03/17 20:14 Pantoprazole (Protonix) 40 mg Q12HR IV 05/05/17 21:00 06/04/17 08:59 05/06/17 10:29 Polyethylene Glycol (Miralax) 17 gm DAILYPRN PRN ORAL Constipation 05/04/17 20:15 06/03/17 20:14 Vancomycin HCl (Vanco rx to dose) 1 ea DAILY PRN MISC Per rx protocol 05/04/17 21:00 06/03/17 20:59 Vancomycin HCl/ Dextrose 250 ml @ 166.667 mls/hr Q24H IVPB 05/05/17 20:00 05/10/17 19:59 05/05/17 20:24 DEEDEE KENDALL May 06, 2017 10:45
--- NOTE | 2017-05-06 11:15 | Diagnostic Imaging Report ---
Indication: Dyspnea Technique: XRAY Chest 1v Comparison: 05/04/2017 Findings: Tracheostomy tube in place. Interval complete white out of the left hemithorax with shift of mediastinal structures to the left. This suggests complete lung collapse. There is a moderate-sized hiatal hernia (seen on previous chest CT 01/14/2017). There is small right pleural effusion hazy right basilar opacities. Unchanged linear opacities in the right upper lung. Osseous structures are stable. IMPRESSION: Interval complete white out of the left hemithorax with shift of mediastinal structures the left. This suggests left lung collapse. Underlying pathology not excluded. Findings discussed with treating RN on 2W via telephone conversation to 05/06/17, 11:00 AM. RN to convey findings to ordering MD (Paco). Page also placed to the ordering MD via cover stitch machine operator. Moderate-sized hiatal hernia. Persistent right upper and lower lung airspace opacities and persistent small right pleural effusion. No pneumothorax.
--- NOTE | 2017-05-06 11:30 | Nephrology Progress Note ---
Assessment/Plan Problem List: (1) Chronic respiratory failure (2) Azotemia (3) Proteinuria Assessment 76 y old- Admitted with fever & Pneumonia - Has chronic Respiratory failure Mild Azotemia- Proteinuria likely Diabetic Nephropathy HypoAlbuminemia, r/o Nephrotic Syndrom Anemia , etiology?? PEG Plan Plan: Pulmonary support- AntiBiotics IV iron Anemia workup: low Iron Keep BP and BS in check Urine studies DC IV fluid Subjective ROS Limited/Unobtainable: Yes Objective Objective Last 24 Hour Vital Signs Date Time Temp Pulse Resp B/P (MAP) Pulse Ox O2 Delivery O2 Flow Rate FiO2 05/06/17 10:19 98 140/82 05/06/17 09:36 98 17 35 05/06/17 08:00 35 05/06/17 08:00 77 05/06/17 08:00 97.5 75 18 140/82 99 Mechanical Ventilator 35 97.5 05/06/17 07:59 82 22 35 05/06/17 05:20 88 19 35 05/06/17 04:00 35 05/06/17 04:00 98.4 74 16 131/64 98 Mechanical Ventilator 35 98.4 05/06/17 03:47 77 05/06/17 03:07 82 22 35 05/06/17 01:41 75 27 35 05/06/17 00:02 78 05/06/17 00:00 98.1 84 20 143/86 98 Mechanical Ventilator 35 98.1 05/06/17 00:00 35 05/05/17 22:59 82 14 35 05/05/17 21:05 75 34 35 05/05/17 20:00 97.8 74 23 145/70 98 Mechanical Ventilator 35 97.8 05/05/17 20:00 82 05/05/17 20:00 35 05/05/17 19:41 72 22 35 05/05/17 17:11 76 22 35 05/05/17 16:00 35 05/05/17 16:00 97.9 99 18 149/71 96 Mechanical Ventilator 35 05/05/17 16:00 69 05/05/17 14:34 68 17 35 05/05/17 12:43 67 17 35 05/05/17 12:02 78 05/05/17 12:00 97.3 77 18 131/63 97 Mechanical Ventilator 35 05/05/17 12:00 35 Intake and Output 05/05/17 05/06/17 19:00 07:00 Intake Total 625 ml 1446.667 ml Output Total 20 ml 250 ml Balance 605 ml 1196.667 ml Intake Free Water 80 ml 110 ml IV Total 155 ml 976.667 ml Tube Feeding 360 ml 360 ml Other 30 ml Output Urine Total 20 ml 250 ml # Voids 1 # Bowel Movements 3 2 Laboratory Tests 05/06/17 04:10: White Blood Count 16.9H, Red Blood Count 2.69L, Hemoglobin 8.5L, Hematocrit 25.9L, Mean Corpuscular Volume 96, Mean Corpuscular Hemoglobin 31.4H, Mean Corpuscular Hemoglobin Concent 32.6, Red Cell Distribution Width 12.6, Platelet Count 393, Mean Platelet Volume 8.5, Neutrophils (%) (Auto) 81.7H, Lymphocytes ( %) (Auto) 6.5L, Monocytes (%) (Auto) 7.7, Eosinophils (%) (Auto) 3.5H, Basophils (%) (Auto) 0.6, Sodium Level 138, Potassium Level 3.8, Chloride Level 103, Carbon Dioxide Level 30, Anion Gap 5, Blood Urea Nitrogen 31H, Creatinine 1.0, Estimat Glomerular Filtration Rate , Glucose Level 135H, Hemoglobin A1c 5.0 , Uric Acid 4.6, Calcium Level 8.3L, Phosphorus Level 3.5, Magnesium Level 2.0, Iron Level 19L, Total Iron Binding Capacity 204L, Percent Iron Saturation 9L, Unsaturated Iron Binding 185, Total Bilirubin 0.2, Gamma Glutamyl Transpeptidase 173H, Aspartate Amino Transf (AST/SGOT) 19, Alanine Aminotransferase (ALT/SGPT) 63, Alkaline Phosphatase 215H, Total Creatine Kinase 33, Troponin I 0.000, Pro-B-Type Natriuretic Peptide 2699H, Total Protein 6.6, Albumin 1.8L, Globulin 4.8, Albumin/Globulin Ratio 0.4L, Triglycerides Level 118, Cholesterol Level 120, LDL Cholesterol 70, HDL Cholesterol 26L, Cholesterol/HDL Ratio 4.6H, Vitamin B12 Level 941, Folate 39.5 , Thyroid Stimulating Hormone (TSH) 3.472 Height (Feet): 4 Height (Inches): 11.00 Weight (Pounds): 120 General Appearance: no apparent distress Cardiovascular: tachycardia Respiratory/Chest: decreased breath sounds Abdomen: soft FOULADIAN,PARVIZ May 06, 2017 11:30
--- NOTE | 2017-05-06 11:54 | Pulmonolgy Critical Care Note ---
Critical Care - Asmt/Plan Problems: (1) Acute on chronic respiratory failure (2) Collapse of left lung (3) HCAP (healthcare-associated pneumonia) (4) Diabetes mellitus (5) COPD (chronic obstructive pulmonary disease) Respiratory: monitor respiratory rate, adjust FIO2, CXR, other - Keep left lung elevated, increase TV, if Collapse lung doesn't improve, will do bronchoscopy in a few days. Cardiac: stop pressors, continue to monitor HR/BP Infectious Disease: check cultures Gastrointestinal: continue feedings/current rate Endocrine: monitor blood sugar Hematologic: monitor H/H Neurologic: PRN Ativan, keep patient comfortable Prophylaxis: Heparin Time Spent (Minutes): 40 Notes Reviewed: cardio, renal Discussed with: nurses, consultants, community case managercorporate security manager - Objective Last 24 Hour Vital Signs Date Time Temp Pulse Resp B/P (MAP) Pulse Ox O2 Delivery O2 Flow Rate FiO2 05/06/17 10:19 98 140/82 05/06/17 09:36 98 17 35 05/06/17 08:00 35 05/06/17 08:00 77 05/06/17 08:00 97.5 75 18 140/82 99 Mechanical Ventilator 35 97.5 05/06/17 07:59 82 22 35 05/06/17 05:20 88 19 35 05/06/17 04:00 35 05/06/17 04:00 98.4 74 16 131/64 98 Mechanical Ventilator 35 98.4 05/06/17 03:47 77 05/06/17 03:07 82 22 35 05/06/17 01:41 75 27 35 05/06/17 00:02 78 05/06/17 00:00 98.1 84 20 143/86 98 Mechanical Ventilator 35 98.1 05/06/17 00:00 35 05/05/17 22:59 82 14 35 05/05/17 21:05 75 34 35 05/05/17 20:00 97.8 74 23 145/70 98 Mechanical Ventilator 35 97.8 05/05/17 20:00 82 05/05/17 20:00 35 05/05/17 19:41 72 22 35 05/05/17 17:11 76 22 35 05/05/17 16:00 35 05/05/17 16:00 97.9 99 18 149/71 96 Mechanical Ventilator 35 05/05/17 16:00 69 05/05/17 14:34 68 17 35 05/05/17 12:43 67 17 35 05/05/17 12:02 78 05/05/17 12:00 97.3 77 18 131/63 97 Mechanical Ventilator 35 05/05/17 12:00 35 Status: awake Condition: critical HEENT: atraumatic Lungs: rales, rhonchi, other - no BS at left lung Heart: HR/BP stable, HR/BP unstable Abdomen: active bowel sounds Extremities: no C/C/E Micro: Microbiology Date/Time Source Procedure Growth Status 05/04/17 17:50 Blood Blood Culture - Preliminary NO GROWTH AFTER 24 HOURS Resulted 05/04/17 17:30 Blood Blood Culture - Preliminary NO GROWTH AFTER 24 HOURS Resulted 05/05/17 03:15 Sputum Gram Stain - Final Resulted 05/05/17 03:15 Sputum Sputum Culture Pending Resulted 05/04/17 19:39 Nasal Nares Influenza Types A,B Antigen (ROD) - Final Complete Accucheck: 108 Critical Care - Subjective ROS Limited/Unobtainable: No Interval Events: complete left lung collapse Condition: critical IV Access: PICC EKG Rhythm: Sinus Bradycardia FI02: 35 Vent Support Breath Rate: 10 Vent Support Mode: AC Vent Tidal Volume: 400 Sputum Amount: Moderate PEEP: 5.0 PIP: 27 Tube Feeding Amount: 30 I&O: Intake and Output 05/05/17 05/06/17 19:00 07:00 Intake Total 625 ml 1446.667 ml Output Total 20 ml 250 ml Balance 605 ml 1196.667 ml Intake Free Water 80 ml 110 ml IV Total 155 ml 976.667 ml Tube Feeding 360 ml 360 ml Other 30 ml Output Urine Total 20 ml 250 ml # Voids 1 # Bowel Movements 3 2 CXR: left lung collpase Labs: Laboratory Tests Test 05/06/17 04:10 White Blood Count 16.9 K/UL (4.8-10.8) H Red Blood Count 2.69 M/UL (4.20-5.40) L Hemoglobin 8.5 G/DL (12.0-16.0) L Hematocrit 25.9 % (37.0-47.0) L Mean Corpuscular Volume 96 FL (80-99) Mean Corpuscular Hemoglobin 31.4 PG (27.0-31.0) H Mean Corpuscular Hemoglobin Concent 32.6 G/DL (32.0-36.0) Red Cell Distribution Width 12.6 % (11.6-14.8) Platelet Count 393 K/UL (150-450) Mean Platelet Volume 8.5 FL (6.5-10.1) Neutrophils (%) (Auto) 81.7 % (45.0-75.0) H Lymphocytes (%) (Auto) 6.5 % (20.0-45.0) L Monocytes (%) (Auto) 7.7 % (1.0-10.0) Eosinophils (%) (Auto) 3.5 % (0.0-3.0) H Basophils (%) (Auto) 0.6 % (0.0-2.0) Sodium Level 138 MMOL/L (136-145) Potassium Level 3.8 MMOL/L (3.5-5.1) Chloride Level 103 MMOL/L (98-107) Carbon Dioxide Level 30 MMOL/L (21-32) Anion Gap 5 mmol/L (5-15) Blood Urea Nitrogen 31 mg/dL (7-18) H Creatinine 1.0 MG/DL (0.55-1.30) Estimat Glomerular Filtration Rate mL/min (>60) Glucose Level 135 MG/DL (74-106) H Hemoglobin A1c 5.0 % (4.3-6.0) Uric Acid 4.6 MG/DL (2.6-7.2) Calcium Level 8.3 MG/DL (8.5-10.1) L Phosphorus Level 3.5 MG/DL (2.5-4.9) Magnesium Level 2.0 MG/DL (1.8-2.4) Iron Level 19 ug/dL (50-175) L Total Iron Binding Capacity 204 ug/dL (250-450) L Percent Iron Saturation 9 % (15-50) L Unsaturated Iron Binding 185 ug/dL (112-346) Total Bilirubin 0.2 MG/DL (0.2-1.0) Gamma Glutamyl Transpeptidase 173 U/L (5-85) H Aspartate Amino Transf (AST/SGOT) 19 U/L (15-37) Alanine Aminotransferase (ALT/SGPT) 63 U/L (12-78) Alkaline Phosphatase 215 U/L (46-116) H Total Creatine Kinase 33 U/L (26-308) Troponin I 0.000 ng/mL (0.000-0.056) Pro-B-Type Natriuretic Peptide 2699 pg/mL (0-125) H Total Protein 6.6 G/DL (6.4-8.2) Albumin 1.8 G/DL (3.4-5.0) L Globulin 4.8 g/dL Albumin/Globulin Ratio 0.4 (1.0-2.7) L Triglycerides Level 118 MG/DL (30-150) Cholesterol Level 120 MG/DL (< 200) LDL Cholesterol 70 mg/dL (<100) HDL Cholesterol 26 MG/DL (40-60) L Cholesterol/HDL Ratio 4.6 (3.3-4.4) H Vitamin B12 Level 941 PG/ML (193-986) Folate 39.5 NG/ML (8.6-58.9) Thyroid Stimulating Hormone (TSH) 3.472 uiU/mL (0.358-3.740) YOVANNY CARRINGTON May 06, 2017 11:54
[2017-05-06 12:00] VITALS: BP 136/70
[2017-05-06] MEDS ORDERED: Iron Sucrose 200 MG in NS 110 ML IV ONE (13:00)
--- NOTE | 2017-05-06 13:41 | General Progress Note ---
Assessment/Plan Problem List: (1) Fever ICD Codes: R50.9 - Fever, unspecified SNOMED: 476680305 Qualifiers: Qualified Codes: R50.9 - Fever, unspecified (2) Chronic respiratory failure ICD Codes: J96.10 - Chronic respiratory failure, unspecified whether with hypoxia or hypercapnia SNOMED: 83072513 Qualifiers: Qualified Codes: J96.10 - Chronic respiratory failure, unspecified whether with hypoxia or hypercapnia (3) Diabetes mellitus ICD Codes: E11.9 - Type 2 diabetes mellitus without complications SNOMED: 94767888 (4) Acute on chronic respiratory failure ICD Codes: J96.20 - Acute and chronic respiratory failure, unspecified whether with hypoxia or hypercapnia SNOMED: 39474620 (5) Sepsis ICD Codes: A41.9 - Sepsis, unspecified organism SNOMED: 30591023 Status: progressing Assessment/Plan trach and peg pna improving afebrile abx per id Subjective ROS Limited/Unobtainable: Yes Allergies: Coded Allergies: CODEINE (Unverified Allergy, Unknown, 01/10/17) PENICILLINS (Unverified Allergy, Unknown, 01/10/17) Objective Last 24 Hour Vital Signs Date Time Temp Pulse Resp B/P (MAP) Pulse Ox O2 Delivery O2 Flow Rate FiO2 05/06/17 13:11 98 17 35 05/06/17 12:49 74 05/06/17 11:53 82 22 35 05/06/17 10:19 98 140/82 05/06/17 09:36 98 17 35 05/06/17 08:00 35 05/06/17 08:00 77 05/06/17 08:00 97.5 75 18 140/82 99 Mechanical Ventilator 35 97.5 05/06/17 07:59 82 22 35 05/06/17 05:20 88 19 35 05/06/17 04:00 35 05/06/17 04:00 98.4 74 16 131/64 98 Mechanical Ventilator 35 98.4 05/06/17 03:47 77 05/06/17 03:07 82 22 35 05/06/17 01:41 75 27 35 05/06/17 00:02 78 05/06/17 00:00 98.1 84 20 143/86 98 Mechanical Ventilator 35 98.1 05/06/17 00:00 35 05/05/17 22:59 82 14 35 05/05/17 21:05 75 34 35 05/05/17 20:00 97.8 74 23 145/70 98 Mechanical Ventilator 35 97.8 05/05/17 20:00 82 05/05/17 20:00 35 05/05/17 19:41 72 22 35 05/05/17 17:11 76 22 35 05/05/17 16:00 35 05/05/17 16:00 97.9 99 18 149/71 96 Mechanical Ventilator 35 05/05/17 16:00 69 05/05/17 14:34 68 17 35 Intake and Output 05/05/17 05/06/17 19:00 07:00 Intake Total 625 ml 1446.667 ml Output Total 20 ml 250 ml Balance 605 ml 1196.667 ml Intake Free Water 80 ml 110 ml IV Total 155 ml 976.667 ml Tube Feeding 360 ml 360 ml Other 30 ml Output Urine Total 20 ml 250 ml # Voids 1 # Bowel Movements 3 2 Laboratory Tests 05/06/17 04:10: White Blood Count 16.9H, Red Blood Count 2.69L, Hemoglobin 8.5L, Hematocrit 25.9L, Mean Corpuscular Volume 96, Mean Corpuscular Hemoglobin 31.4H, Mean Corpuscular Hemoglobin Concent 32.6, Red Cell Distribution Width 12.6, Platelet Count 393, Mean Platelet Volume 8.5, Neutrophils (%) (Auto) 81.7H, Lymphocytes ( %) (Auto) 6.5L, Monocytes (%) (Auto) 7.7, Eosinophils (%) (Auto) 3.5H, Basophils (%) (Auto) 0.6, Sodium Level 138, Potassium Level 3.8, Chloride Level 103, Carbon Dioxide Level 30, Anion Gap 5, Blood Urea Nitrogen 31H, Creatinine 1.0, Estimat Glomerular Filtration Rate , Glucose Level 135H, Hemoglobin A1c 5.0 , Uric Acid 4.6, Calcium Level 8.3L, Phosphorus Level 3.5, Magnesium Level 2.0, Iron Level 19L, Total Iron Binding Capacity 204L, Percent Iron Saturation 9L, Unsaturated Iron Binding 185, Total Bilirubin 0.2, Gamma Glutamyl Transpeptidase 173H, Aspartate Amino Transf (AST/SGOT) 19, Alanine Aminotransferase (ALT/SGPT) 63, Alkaline Phosphatase 215H, Total Creatine Kinase 33, Troponin I 0.000, Pro-B-Type Natriuretic Peptide 2699H, Total Protein 6.6, Albumin 1.8L, Globulin 4.8, Albumin/Globulin Ratio 0.4L, Triglycerides Level 118, Cholesterol Level 120, LDL Cholesterol 70, HDL Cholesterol 26L, Cholesterol/HDL Ratio 4.6H, Vitamin B12 Level 941, Folate 39.5 , Thyroid Stimulating Hormone (TSH) 3.472 Height (Feet): 4 Height (Inches): 11.00 Weight (Pounds): 120 General Appearance: confused Respiratory/Chest: lungs clear Abdomen: soft Fernandez Gomez MD May 06, 2017 13:41
--- NOTE | 2017-05-06 15:41 | Wound Care Consultation ---
Wound Assessment Wound Assessment #1: Wound Number: 1 Wound Present on Admission: Yes New Wound: No Status Change of Wound: No Wound Location Body Site Modif: mid Wound Location Body Site: sacral Wound Type: scar Jessika Test: Does not Jessika Wound Thickness: Full Thickness Wound Length: 4.0 Wound Width: 2.5 Wound Depth: utd Percent of Wound [place]/Red: 100 Wound Drainage Amount: None Wound Drainage Odor: None/Absent Tissue Surrounding Wound: Wound General Appearance: Reddened, Draining Wound Assessment #2: Wound Number: 2 Wound Present on Admission: Yes New Wound: No Status Change of Wound: No Wound Location Body Site Modif: left Wound Location Body Site: sacral Wound Type: scar Jessika Test: Does not Jessika Wound Thickness: Full Thickness Wound Length: 4.5 Wound Width: 4.5 Wound Depth: utd Percent of Wound [place]/Red: 100 Wound Drainage Amount: None Wound Drainage Odor: None/Absent Tissue Surrounding Wound: Intact Wound General Appearance: Reddened Wound Assessment #3: Wound Number: 3 Wound Present on Admission: Yes New Wound: No Status Change of Wound: No Wound Location Body Site Modif: right Wound Location Body Site: sacral Wound Type: pressure ulcer Jessika Test: Does not Jessika Pressure Ulcer Stage: Deep Tissue Injury - SDTI Wound Thickness: Full Thickness Wound Length: 3.5 Wound Width: 2.5 Wound Depth: utd Percent of Wound Purple/Maroon: 100 Wound Drainage Amount: None Wound Drainage Odor: None/Absent Tissue Surrounding Wound: Intact Wound General Appearance: Reddened - purple, Draining Wound Assessment #4: Wound Number: 4 Wound Present on Admission: Yes New Wound: No Status Change of Wound: No Wound Location Body Site: nose Wound Type: scab Jessika Test: Does not Jessika Wound Thickness: Full Thickness Wound Length: 0.5 Wound Width: 0.5 Wound Depth: utd Percent of Wound Black/Brown: 100 Wound Drainage Amount: None Wound Drainage Odor: None/Absent Tissue Surrounding Wound: Intact Wound General Appearance: Blackened Wound Comment #1 Mid sacral full thickness scar tissue #2 Left aspect of sacral area full thickness scar tissue #3 Right sacral SDTI pressure ulcer #4 Nose with black dry scab Recommendation -Local wound care per protocol -Keep clean and dry -Turn and reposition -Offload both heels -Heel protector on both heels -Optimize nutrition -Low air loss mattress -Assess and f/u accordingly for any changes ZULEYKA LONGORIA RN May 06, 2017 15:41
[2017-05-06 16:00] VITALS: BP 147/66
[2017-05-06 20:00] VITALS: BP 124/55
[2017-05-06] MEDS: Dyna-Hex 2% Top Sol 2oz TOPIC SCH (21:05)
[2017-05-06] MEDS: Vancomycin 1250mg/D5W 250ml IVPB SCH (21:05)
--- NOTE | 2017-05-06 21:47 | Diagnostic Imaging Report ---
APPROVED REPORT CPT Code: 03742 Present Symptoms Comments: R/O DVT BILATERAL: Imaging reveals a patent deep venous system bilaterally. There is no evidence of thrombus within the left common femoral, superficial femoral, popliteal or tibial segments. The greater saphenous veins are also within normal limits. Doppler indicates normal spontaneous flow within these segments. The right common femoral vein was not well visualized.
--- NOTE | 2017-05-06 22:45 | Consultation ---
DATE OF CONSULTATION: 05/05/2017 HEMATOLOGY/ONCOLOGY CONSULTATION CONSULTING PHYSICIAN: Reinier Lou M.D. REQUESTING PHYSICIAN: Fernandez Gomez M.D. REASON FOR CONSULTATION: Evaluation of anemia. IDENTIFYING DATA: Dear Dr. Gomez, The patient is a pleasant 76-year-old female who I have seen in the past. She has a past medical history, which is significant for ventilator-dependent respiratory failure, G-tube status, G-tube placement, status post dysphagia, who now presents to the ER with fever, noted to have fever x1 episode, afebrile currently, started on antibiotics for leukocytosis. Hemoglobin and hematocrit was decreased. Hematology service was consulted for further evaluation and treatment. Chest x-ray showed right lower lobe infiltrate. Pulmonary team consulted as well. PAST MEDICAL HISTORY: As noted above. PAST SURGICAL HISTORY: None noted. MEDICATIONS: Amlodipine, cranberry juice, Colace, Pepcid, ferrous sulfate, Atrovent, oxybutynin. ALLERGIES: Codeine . REVIEW OF SYSTEMS: Difficult to obtain given the patient's mental status. PHYSICAL EXAMINATION: VITAL SIGNS: Reviewed. GENERAL: No acute distress. HEENT: atraumatic. PULMONARY: Decreased breath sounds. The patient is on ventilator, status post tracheostomy. Right line in place. CARDIOVASCULAR: Regular rate. No S3 or S4. ABDOMEN: Soft, nontender, and nondistended. EXTREMITIES: No cyanosis, swelling, or edema. LABORATORY DATA: WBC 19.6, hemoglobin 8.5, hematocrit 26, and platelet count 373,000. ASSESSMENT AND RECOMMENDATIONS: 1. Anemia due to underlying chronic disease. Anemia workup in the past has been reviewed, send off for ferritin, which is less than 300. Continue to closely monitor. Hemoglobin goal is above 7. Does not appear to have any evidence of hemolysis. 2. Leukocytosis appears to be significant and current leukocyte count 19.6 with neutrophils 84% and therefore is elevated due to underlying infection. Currently, is on antibiotics. broad spectrum. Dr. Gonzalez, has evaluated the patient. 3. Pneumonia. Broad-spectrum antibiotics. 4. Ventilator-dependent respiratory failure. Started on antibiotic, broad spectrum by Dr. Gonzalez. 5. Methicillin-resistant Staphylococcus aureus in the past. 6. Transaminitis. I appreciate the consultation. Reinier Lou M.D. DR: SERGIO JOB#: [id number] CC:
[2017-05-07] VITALS: BP 114/59
[2017-05-07] MEDS: NovoLOG Insulin Flexpen SUBQ SCH ×5 (00:46→23:33)
[2017-05-07 04:00] VITALS: BP 131/69
[2017-05-07 04:57] LABS: BASOPHILS % (AUTO) 1.1 % (0.0-2.0); EOSINOPHILS % (AUTO) 5.1 % (0.0-3.0); HEMATOCRIT 24.9 % (37.0-47.0); HEMOGLOBIN 8.4 G/DL (12.0-16.0); LYMPHOCYTES % (AUTO) 8.9 % (20.0-45.0); MEAN CORPUSCULAR VOLUME 94 FL (80-99); MONOCYTES % (AUTO) 10.2 % (1.0-10.0); NEUTROPHILS % (AUTO) 74.8 % (45.0-75.0); PLATELET COUNT 403 K/UL (150-450); RED BLOOD COUNT 2.64 M/UL (4.20-5.40); RED CELL DISTRIBUTION WIDTH 12.7 % (11.6-14.8); WHITE BLOOD COUNT 15.5 K/UL (4.8-10.8)
[2017-05-07 05:01] LABS: ALANINE AMINOTRANSFERASE 47 U/L (12-78); ALBUMIN 1.7 G/DL (3.4-5.0); ALBUMIN/GLOBULIN RATIO 0.4 (1.0-2.7); ALKALINE PHOSPHATASE 191 U/L (46-116); ANION GAP 4 mmol/L (5-15); ASPARTATE AMINO TRANSFERASE 16 U/L (15-37); BILIRUBIN,TOTAL 0.2 MG/DL (0.2-1.0); BLOOD UREA NITROGEN 30 mg/dL (7-18); CALCIUM 8.3 MG/DL (8.5-10.1); CARBON DIOXIDE 31 MMOL/L (21-32); CHLORIDE 104 MMOL/L (98-107); CREATININE 0.9 MG/DL (0.55-1.30); PHOSPHORUS 3.9 MG/DL (2.5-4.9); POTASSIUM 3.6 MMOL/L (3.5-5.1); SODIUM 139 MMOL/L (136-145)
[2017-05-07] MEDS: Aztreonam Inj 1 GM in NS 55 ML IVPB SCH ×3 (05:19→21:42)
[2017-05-07 08:00] VITALS: BP 128/59
[2017-05-07] MEDS: Pantoprazole Inj IV SCH (09:16)
[2017-05-07] MEDS: Heparin 5000 units/ml inj SUBQ SCH ×2 (09:16→20:56)
--- NOTE | 2017-05-07 09:31 | General Progress Note ---
Assessment/Plan Assessment/Plan 1. Anemia due to underlying chronic disease. --> Anemia workup reviewed. Iron 19, TIBC 204, [place] 39.5, Vit B12 941 --> Continue to closely monitor. --> Hemoglobin goal is above 7. Does not appear to have any evidence of hemolysis. --> Does not need PRBC at this time. 2. Leukocytosis appears to be significant and current leukocyte count elevated with neutrophils 84% and therefore is elevated due to underlying infection. --> Currently, is on antibiotics. broad spectrum. Dr. Gonzalez, has evaluated the patient. --> Improving on antibiotics. Leukocytosis now 15.5 3. Pneumonia. Broad-spectrum antibiotics. 4. Ventilator-dependent respiratory failure. Started on antibiotic, broad spectrum by Dr. Gonzalez. 5. Methicillin-resistant Staphylococcus aureus in the past. 6. Transaminitis. Subjective Date patient seen: May 06, 2017 Constitutional: Denies: no symptoms, chills, diaphoresis, fever, malaise, weakness, other HEENT: Denies: no symptoms, eye pain, blurred vision, tearing, double vision, ear pain, ear discharge, nose pain, nose congestion, throat pain, throat swelling, mouth pain, mouth swelling, other Cardiovascular: Denies: no symptoms, chest pain, edema, irregular heart rate, lightheadedness, palpitations, syncope, other Respiratory: Denies: no symptoms, cough, orthopnea, shortness of breath, SOB with excertion, SOB at rest, sputum, stridor, wheezing, other Gastrointestinal/Abdominal: Denies: no symptoms, abdomen distended, abdominal pain, black stools, tarry stools, blood in stool, constipated, diarrhea, difficulty swallowing, nausea, poor appetite, poor fluid intake, rectal bleeding , vomiting, other Genitourinary: Denies: no symptoms, burning, discharge, frequency, flank pain, hematuria, incontinence, pain, urgency, other Hematologic/Lymphatic: Reports: anemia Allergies: Coded Allergies: CODEINE (Unverified Allergy, Unknown, 01/10/17) PENICILLINS (Unverified Allergy, Unknown, 01/10/17) Subjective Leukocytosis improving. On antibiotics. H/H stable. Objective Last 24 Hour Vital Signs Date Time Temp Pulse Resp B/P (MAP) Pulse Ox O2 Delivery O2 Flow Rate FiO2 05/07/17 09:15 71 128/59 05/07/17 08:53 71 10 35 05/07/17 08:00 74 05/07/17 08:00 98.4 73 10 128/59 99 Mechanical Ventilator 35 98.4 05/07/17 06:54 74 12 35 05/07/17 05:25 73 12 35 05/07/17 04:00 97.7 77 10 131/69 99 Mechanical Ventilator 35 97.7 05/07/17 04:00 35 05/07/17 03:54 73 05/07/17 03:23 64 10 35 05/07/17 01:15 55 10 35 05/07/17 00:00 35 05/07/17 00:00 57 05/07/17 00:00 98.1 79 11 114/59 99 Mechanical Ventilator 35 98.1 05/06/17 22:53 59 10 35 05/06/17 21:21 83 14 35 05/06/17 20:00 35 05/06/17 20:00 98.2 78 12 124/55 99 Mechanical Ventilator 35 98.2 05/06/17 19:09 76 10 35 05/06/17 19:06 82 05/06/17 16:45 92 21 35 05/06/17 16:03 91 05/06/17 16:00 98.2 98 19 147/66 99 Mechanical Ventilator 35 98.2 05/06/17 16:00 35 05/06/17 15:23 97 24 35 05/06/17 13:11 98 17 35 05/06/17 12:49 74 05/06/17 12:00 35 05/06/17 12:00 98.2 82 18 136/70 100 Mechanical Ventilator 35 98.2 05/06/17 11:53 82 22 35 05/06/17 10:19 98 140/82 05/06/17 09:36 98 17 35 Intake and Output 05/06/17 05/07/17 19:00 07:00 Intake Total 615 ml 790.000 ml Output Total 150 ml 1000 ml Balance 465 ml -210.000 ml Intake Free Water 200 ml 100 ml IV Total 55 ml 360.000 ml Tube Feeding 360 ml 330 ml Output Urine Total 150 ml 1000 ml # Voids 2 1 # Bowel Movements 1 1 Laboratory Tests 05/07/17 04:00: White Blood Count 15.5H, Red Blood Count 2.64L, Hemoglobin 8.4L, Hematocrit 24.9L, Mean Corpuscular Volume 94, Mean Corpuscular Hemoglobin 31.7H, Mean Corpuscular Hemoglobin Concent 33.6, Red Cell Distribution Width 12.7, Platelet Count 403, Mean Platelet Volume 8.5, Neutrophils (%) (Auto) 74.8, Lymphocytes (% ) (Auto) 8.9L, Monocytes (%) (Auto) 10.2H, Eosinophils (%) (Auto) 5.1H, Basophils (%) (Auto) 1.1, Sodium Level 139, Potassium Level 3.6, Chloride Level 104, Carbon Dioxide Level 31, Anion Gap 4L, Blood Urea Nitrogen 30H, Creatinine 0.9, Estimat Glomerular Filtration Rate , Glucose Level 106, Calcium Level 8.3L , Phosphorus Level 3.9, Magnesium Level 2.1, Total Bilirubin 0.2, Aspartate Amino Transf (AST/SGOT) 16, Alanine Aminotransferase (ALT/SGPT) 47, Alkaline Phosphatase 191H, Total Protein 6.3L, Albumin 1.7L, Globulin 4.6, Albumin/ Globulin Ratio 0.4L Height (Feet): 4 Height (Inches): 11.00 Weight (Pounds): 119 General Appearance: confused Respiratory/Chest: decreased breath sounds Edema: trace edema Reinier Lou May 07, 2017 09:31
[2017-05-07] MEDS ORDERED: Lidocaine 1% MPF 10mg/ml 5ml HHN ONE (10:00)
[2017-05-07] MEDS ORDERED: Heparin 2000 units/Ns 1000ml IV ONE (10:00)
--- NOTE | 2017-05-07 10:39 | Diagnostic Imaging Report ---
Indication: Dyspnea Technique: One view of the chest Comparison: 05/06/2017 Findings: Interim slight degree of reexpansion of the left upper lobe, all of the left hemithorax remains mostly opacified. Linear atelectasis is again demonstrated in the right upper lobe, and hazy opacity remains in the right lung base. There is probably small right pleural effusion. Tracheostomy remains. Impression: Slight improvement of left upper lobe aeration, over one day Persistent right basilar infiltrate and pleural fluid, right upper lobe subsegmental atelectasis
--- NOTE | 2017-05-07 11:14 | Nephrology Progress Note ---
Assessment/Plan Problem List: (1) Chronic respiratory failure (2) Azotemia (3) Proteinuria Assessment 76 y old- Admitted with fever & Pneumonia - Has chronic Respiratory failure Mild Azotemia- Proteinuria likely Diabetic Nephropathy HypoAlbuminemia, r/o Nephrotic Syndrom Anemia , etiology?? PEG Plan Plan: Pulmonary support- AntiBiotics IV iron Anemia workup: low Iron Keep BP and BS in check Urine studies DC IV fluid Subjective ROS Limited/Unobtainable: Yes Objective Objective Last 24 Hour Vital Signs Date Time Temp Pulse Resp B/P (MAP) Pulse Ox O2 Delivery O2 Flow Rate FiO2 05/07/17 10:49 69 10 35 05/07/17 09:15 71 128/59 05/07/17 08:53 71 10 35 05/07/17 08:00 74 05/07/17 08:00 98.4 73 10 128/59 99 Mechanical Ventilator 35 98.4 05/07/17 06:54 74 12 35 05/07/17 05:25 73 12 35 05/07/17 04:00 97.7 77 10 131/69 99 Mechanical Ventilator 35 97.7 05/07/17 04:00 35 05/07/17 03:54 73 05/07/17 03:23 64 10 35 05/07/17 01:15 55 10 35 05/07/17 00:00 35 05/07/17 00:00 57 05/07/17 00:00 98.1 79 11 114/59 99 Mechanical Ventilator 35 98.1 05/06/17 22:53 59 10 35 05/06/17 21:21 83 14 35 05/06/17 20:00 35 05/06/17 20:00 98.2 78 12 124/55 99 Mechanical Ventilator 35 98.2 05/06/17 19:09 76 10 35 05/06/17 19:06 82 05/06/17 16:45 92 21 35 05/06/17 16:03 91 05/06/17 16:00 98.2 98 19 147/66 99 Mechanical Ventilator 35 98.2 05/06/17 16:00 35 05/06/17 15:23 97 24 35 05/06/17 13:11 98 17 35 05/06/17 12:49 74 05/06/17 12:00 35 05/06/17 12:00 98.2 82 18 136/70 100 Mechanical Ventilator 35 98.2 05/06/17 11:53 82 22 35 Intake and Output 05/06/17 05/07/17 19:00 07:00 Intake Total 615 ml 790.000 ml Output Total 150 ml 1000 ml Balance 465 ml -210.000 ml Intake Free Water 200 ml 100 ml IV Total 55 ml 360.000 ml Tube Feeding 360 ml 330 ml Output Urine Total 150 ml 1000 ml # Voids 2 1 # Bowel Movements 1 1 Laboratory Tests 05/07/17 04:00: White Blood Count 15.5H, Red Blood Count 2.64L, Hemoglobin 8.4L, Hematocrit 24.9L, Mean Corpuscular Volume 94, Mean Corpuscular Hemoglobin 31.7H, Mean Corpuscular Hemoglobin Concent 33.6, Red Cell Distribution Width 12.7, Platelet Count 403, Mean Platelet Volume 8.5, Neutrophils (%) (Auto) 74.8, Lymphocytes (% ) (Auto) 8.9L, Monocytes (%) (Auto) 10.2H, Eosinophils (%) (Auto) 5.1H, Basophils (%) (Auto) 1.1, Sodium Level 139, Potassium Level 3.6, Chloride Level 104, Carbon Dioxide Level 31, Anion Gap 4L, Blood Urea Nitrogen 30H, Creatinine 0.9, Estimat Glomerular Filtration Rate , Glucose Level 106, Calcium Level 8.3L , Phosphorus Level 3.9, Magnesium Level 2.1, Total Bilirubin 0.2, Aspartate Amino Transf (AST/SGOT) 16, Alanine Aminotransferase (ALT/SGPT) 47, Alkaline Phosphatase 191H, Total Protein 6.3L, Albumin 1.7L, Globulin 4.6, Albumin/ Globulin Ratio 0.4L Height (Feet): 4 Height (Inches): 11.00 Weight (Pounds): 119 General Appearance: no apparent distress Cardiovascular: normal rate Respiratory/Chest: decreased breath sounds Abdomen: soft PARVIZ ALFARO May 07, 2017 11:14
--- NOTE | 2017-05-07 11:43 | Pulmonolgy Critical Care Note ---
Critical Care - Asmt/Plan Problems: (1) Acute on chronic respiratory failure (2) Collapse of left lung (3) HCAP (healthcare-associated pneumonia) (4) Diabetes mellitus (5) COPD (chronic obstructive pulmonary disease) Respiratory: monitor respiratory rate, adjust FIO2, CXR, other - keep left chest elevated. Cardiac: continue to monitor HR/BP Renal: F/U I&O, keep IV fluid Infectious Disease: check cultures Gastrointestinal: continue feedings/current rate Endocrine: monitor blood sugar, check TSH, check HgA1C, continue sliding scale insulin Hematologic: monitor H/H, transfuse if hgb<8.5 Neurologic: PRN Ativan, keep patient comfortable Prophylaxis: Heparin Time Spent (Minutes): 40 Notes Reviewed: cook dinner, cardio, renal Discussed with: nurses, consultants, case reviewerverification manager - Objective Last 24 Hour Vital Signs Date Time Temp Pulse Resp B/P (MAP) Pulse Ox O2 Delivery O2 Flow Rate FiO2 05/07/17 10:49 69 10 35 05/07/17 09:15 71 128/59 05/07/17 08:53 71 10 35 05/07/17 08:00 74 05/07/17 08:00 98.4 73 10 128/59 99 Mechanical Ventilator 35 98.4 05/07/17 06:54 74 12 35 05/07/17 05:25 73 12 35 05/07/17 04:00 97.7 77 10 131/69 99 Mechanical Ventilator 35 97.7 05/07/17 04:00 35 05/07/17 03:54 73 05/07/17 03:23 64 10 35 05/07/17 01:15 55 10 35 05/07/17 00:00 35 05/07/17 00:00 57 05/07/17 00:00 98.1 79 11 114/59 99 Mechanical Ventilator 35 98.1 05/06/17 22:53 59 10 35 05/06/17 21:21 83 14 35 05/06/17 20:00 35 05/06/17 20:00 98.2 78 12 124/55 99 Mechanical Ventilator 35 98.2 05/06/17 19:09 76 10 35 05/06/17 19:06 82 05/06/17 16:45 92 21 35 05/06/17 16:03 91 05/06/17 16:00 98.2 98 19 147/66 99 Mechanical Ventilator 35 98.2 05/06/17 16:00 35 05/06/17 15:23 97 24 35 05/06/17 13:11 98 17 35 05/06/17 12:49 74 05/06/17 12:00 35 05/06/17 12:00 98.2 82 18 136/70 100 Mechanical Ventilator 35 98.2 05/06/17 11:53 82 22 35 Micro: Microbiology Date/Time Source Procedure Growth Status 05/04/17 17:50 Blood Blood Culture - Preliminary NO GROWTH AFTER 48 HOURS Resulted 05/04/17 17:30 Blood Blood Culture - Preliminary NO GROWTH AFTER 48 HOURS Resulted 05/05/17 03:15 Sputum Gram Stain - Final Resulted 05/05/17 03:15 Sputum Culture - Preliminary Gram Negative Bacillus 1 Gram Negative Bacillus 2 Streptococcus Group G Resulted 05/04/17 19:39 Nasal Nares Influenza Types A,B Antigen (ROD) - Final Complete Accucheck: 106 Critical Care - Subjective FI02: 35 Vent Support Breath Rate: 10 Vent Support Mode: AC Vent Tidal Volume: 600 Sputum Amount: Moderate PEEP: 5.0 PIP: 24 Tube Feeding Amount: 30 I&O: Intake and Output 05/06/17 05/07/17 19:00 07:00 Intake Total 615 ml 790.000 ml Output Total 150 ml 1000 ml Balance 465 ml -210.000 ml Intake Free Water 200 ml 100 ml IV Total 55 ml 360.000 ml Tube Feeding 360 ml 330 ml Output Urine Total 150 ml 1000 ml # Voids 2 1 # Bowel Movements 1 1 CXR: improvement in Left lung collapse Labs: Laboratory Tests Test 05/07/17 04:00 White Blood Count 15.5 K/UL (4.8-10.8) H Red Blood Count 2.64 M/UL (4.20-5.40) L Hemoglobin 8.4 G/DL (12.0-16.0) L Hematocrit 24.9 % (37.0-47.0) L Mean Corpuscular Volume 94 FL (80-99) Mean Corpuscular Hemoglobin 31.7 PG (27.0-31.0) H Mean Corpuscular Hemoglobin Concent 33.6 G/DL (32.0-36.0) Red Cell Distribution Width 12.7 % (11.6-14.8) Platelet Count 403 K/UL (150-450) Mean Platelet Volume 8.5 FL (6.5-10.1) Neutrophils (%) (Auto) 74.8 % (45.0-75.0) Lymphocytes (%) (Auto) 8.9 % (20.0-45.0) L Monocytes (%) (Auto) 10.2 % (1.0-10.0) H Eosinophils (%) (Auto) 5.1 % (0.0-3.0) H Basophils (%) (Auto) 1.1 % (0.0-2.0) Sodium Level 139 MMOL/L (136-145) Potassium Level 3.6 MMOL/L (3.5-5.1) Chloride Level 104 MMOL/L (98-107) Carbon Dioxide Level 31 MMOL/L (21-32) Anion Gap 4 mmol/L (5-15) L Blood Urea Nitrogen 30 mg/dL (7-18) H Creatinine 0.9 MG/DL (0.55-1.30) Estimat Glomerular Filtration Rate mL/min (>60) Glucose Level 106 MG/DL (74-106) Calcium Level 8.3 MG/DL (8.5-10.1) L Phosphorus Level 3.9 MG/DL (2.5-4.9) Magnesium Level 2.1 MG/DL (1.8-2.4) Total Bilirubin 0.2 MG/DL (0.2-1.0) Aspartate Amino Transf (AST/SGOT) 16 U/L (15-37) Alanine Aminotransferase (ALT/SGPT) 47 U/L (12-78) Alkaline Phosphatase 191 U/L (46-116) H Total Protein 6.3 G/DL (6.4-8.2) L Albumin 1.7 G/DL (3.4-5.0) L Globulin 4.6 g/dL Albumin/Globulin Ratio 0.4 (1.0-2.7) L YOVANNY CARRINGTON May 07, 2017 11:42
[2017-05-07 12:00] VITALS: BP 117/57
--- NOTE | 2017-05-07 12:53 | Infectious Diseases Prog Note ---
Assessment/Plan Assessment/Plan A; Pneumonia VDRF COPD Anemia Penicillin allergy P; Continue Azactam & Vancomycin will f/u cultures Subjective ROS Limited/Unobtainable: Yes Allergies: Coded Allergies: CODEINE (Unverified Allergy, Unknown, 01/10/17) PENICILLINS (Unverified Allergy, Unknown, 01/10/17) Objective Vital Signs Last 24 Hour Vital Signs Date Time Temp Pulse Resp B/P (MAP) Pulse Ox O2 Delivery O2 Flow Rate FiO2 05/07/17 10:49 69 10 35 05/07/17 09:15 71 128/59 05/07/17 08:53 71 10 35 05/07/17 08:00 74 05/07/17 08:00 98.4 73 10 128/59 99 Mechanical Ventilator 35 98.4 05/07/17 06:54 74 12 35 05/07/17 05:25 73 12 35 05/07/17 04:00 97.7 77 10 131/69 99 Mechanical Ventilator 35 97.7 05/07/17 04:00 35 05/07/17 03:54 73 05/07/17 03:23 64 10 35 05/07/17 01:15 55 10 35 05/07/17 00:00 35 05/07/17 00:00 57 05/07/17 00:00 98.1 79 11 114/59 99 Mechanical Ventilator 35 98.1 05/06/17 22:53 59 10 35 05/06/17 21:21 83 14 35 05/06/17 20:00 35 05/06/17 20:00 98.2 78 12 124/55 99 Mechanical Ventilator 35 98.2 05/06/17 19:09 76 10 35 05/06/17 19:06 82 05/06/17 16:45 92 21 35 05/06/17 16:03 91 05/06/17 16:00 98.2 98 19 147/66 99 Mechanical Ventilator 35 98.2 05/06/17 16:00 35 05/06/17 15:23 97 24 35 05/06/17 13:11 98 17 35 Height (Feet): 4 Height (Inches): 11.00 Weight (Pounds): 119 General Appearance: no acute distress HEENT: status post trach Respiratory/Chest: rhonchi - bilaterally, other - on ventilator Cardiovascular: normal rate Abdomen: soft, non tender, other - GT feding Extremities: no edema Neurologic/Psychiatric: alert, responsive Microbiology Date/Time Source Procedure Growth Status 05/04/17 17:50 Blood Blood Culture - Preliminary NO GROWTH AFTER 48 HOURS Resulted 05/04/17 17:30 Blood Blood Culture - Preliminary NO GROWTH AFTER 48 HOURS Resulted 05/05/17 03:15 Sputum Gram Stain - Final Resulted 05/05/17 03:15 Sputum Culture - Preliminary Gram Negative Bacillus 1 Gram Negative Bacillus 2 Streptococcus Group G Resulted 05/04/17 19:39 Nasal Nares Influenza Types A,B Antigen (ROD) - Final Complete Laboratory Tests Test 05/07/17 04:00 White Blood Count 15.5 K/UL (4.8-10.8) H Red Blood Count 2.64 M/UL (4.20-5.40) L Hemoglobin 8.4 G/DL (12.0-16.0) L Hematocrit 24.9 % (37.0-47.0) L Mean Corpuscular Volume 94 FL (80-99) Mean Corpuscular Hemoglobin 31.7 PG (27.0-31.0) H Mean Corpuscular Hemoglobin Concent 33.6 G/DL (32.0-36.0) Red Cell Distribution Width 12.7 % (11.6-14.8) Platelet Count 403 K/UL (150-450) Mean Platelet Volume 8.5 FL (6.5-10.1) Neutrophils (%) (Auto) 74.8 % (45.0-75.0) Lymphocytes (%) (Auto) 8.9 % (20.0-45.0) L Monocytes (%) (Auto) 10.2 % (1.0-10.0) H Eosinophils (%) (Auto) 5.1 % (0.0-3.0) H Basophils (%) (Auto) 1.1 % (0.0-2.0) Sodium Level 139 MMOL/L (136-145) Potassium Level 3.6 MMOL/L (3.5-5.1) Chloride Level 104 MMOL/L (98-107) Carbon Dioxide Level 31 MMOL/L (21-32) Anion Gap 4 mmol/L (5-15) L Blood Urea Nitrogen 30 mg/dL (7-18) H Creatinine 0.9 MG/DL (0.55-1.30) Estimat Glomerular Filtration Rate mL/min (>60) Glucose Level 106 MG/DL (74-106) Calcium Level 8.3 MG/DL (8.5-10.1) L Phosphorus Level 3.9 MG/DL (2.5-4.9) Magnesium Level 2.1 MG/DL (1.8-2.4) Total Bilirubin 0.2 MG/DL (0.2-1.0) Aspartate Amino Transf (AST/SGOT) 16 U/L (15-37) Alanine Aminotransferase (ALT/SGPT) 47 U/L (12-78) Alkaline Phosphatase 191 U/L (46-116) H Total Protein 6.3 G/DL (6.4-8.2) L Albumin 1.7 G/DL (3.4-5.0) L Globulin 4.6 g/dL Albumin/Globulin Ratio 0.4 (1.0-2.7) L Current Medications Medications (Trade) Dose Ordered Sig/Ksy Route PRN Reason Start Time Stop Time Status Last Admin Dose Admin Acetaminophen (Tylenol) 650 mg Q4H PRN ORAL T>100.5 05/04/17 20:15 06/03/17 20:14 05/07/17 10:14 Albuterol/ Ipratropium (Albuterol/ Ipratropium) 3 ml Q4H PRN HHN Shortness of Breath 05/04/17 20:15 05/09/17 20:14 Amlodipine Besylate (Norvasc) 2.5 mg DAILY GT 05/05/17 09:00 06/04/17 08:59 05/07/17 09:15 Aztreonam 1 gm/ Sodium Chloride 55 ml @ 110 mls/hr Q8HR IVPB 05/04/17 22:00 05/11/17 21:59 05/07/17 05:19 Chlorhexidine Gluconate (Myra-Hex 2%) 1 applic DAILY@2000 TOPIC 05/05/17 20:00 06/04/17 19:59 05/06/17 21:05 Dextrose (Dextrose 50%) STAT PRN IV Hypoglycemia 05/05/17 16:00 06/04/17 15:59 Heparin Sodium (Porcine) (Heparin 5000 units/ml) 5,000 units EVERY 12 HOURS SUBQ 05/04/17 21:00 06/03/17 20:59 05/07/17 09:16 Insulin Aspart (NovoLOG) EVERY 6 HOURS SUBQ 05/05/17 18:00 06/04/17 16:29 05/07/17 12:10 Lorazepam (Ativan 2mg/ml 1ml) 2 mg Q2H PRN IV For Anxiety 05/04/17 20:15 05/11/17 20:14 Ondansetron HCl (Zofran) 4 mg Q6H PRN IVP Nausea & Vomiting 05/04/17 20:15 06/03/17 20:14 Pantoprazole (Protonix) 40 mg DAILY IV 05/07/17 09:00 06/04/17 08:59 05/07/17 09:16 Polyethylene Glycol (Miralax) 17 gm DAILYPRN PRN ORAL Constipation 05/04/17 20:15 06/03/17 20:14 Vancomycin HCl (Vanco rx to dose) 1 ea DAILY PRN MISC Per rx protocol 05/04/17 21:00 06/03/17 20:59 Vancomycin HCl/ Dextrose 250 ml @ 166.667 mls/hr Q24H IVPB 05/05/17 20:00 05/10/17 19:59 05/06/17 21:05 DEEDEE KENDALL May 07, 2017 12:53
[2017-05-07 16:00] VITALS: BP 130/63
--- NOTE | 2017-05-07 16:30 | Cardiac Electrophysiology PN ---
Subjective Subjective [id number]. Transient Sinus unique to 45 Objective Last 24 Hour Vital Signs Date Time Temp Pulse Resp B/P (MAP) Pulse Ox O2 Delivery O2 Flow Rate FiO2 05/07/17 15:26 70 12 35 05/07/17 13:06 75 11 35 05/07/17 12:00 98.3 73 10 117/57 99 Mechanical Ventilator 35 98.3 05/07/17 12:00 61 05/07/17 12:00 35 05/07/17 10:49 69 10 35 05/07/17 09:15 71 128/59 05/07/17 08:53 71 10 35 05/07/17 08:00 74 05/07/17 08:00 35 05/07/17 08:00 98.4 73 10 128/59 99 Mechanical Ventilator 35 98.4 05/07/17 06:54 74 12 35 05/07/17 05:25 73 12 35 05/07/17 04:00 97.7 77 10 131/69 99 Mechanical Ventilator 35 97.7 05/07/17 04:00 35 05/07/17 03:54 73 05/07/17 03:23 64 10 35 05/07/17 01:15 55 10 35 05/07/17 00:00 35 05/07/17 00:00 57 05/07/17 00:00 98.1 79 11 114/59 99 Mechanical Ventilator 35 98.1 05/06/17 22:53 59 10 35 05/06/17 21:21 83 14 35 05/06/17 20:00 35 05/06/17 20:00 98.2 78 12 124/55 99 Mechanical Ventilator 35 98.2 05/06/17 19:09 76 10 35 05/06/17 19:06 82 05/06/17 16:45 92 21 35 Intake and Output 05/06/17 05/07/17 19:00 07:00 Intake Total 615 ml 850.000 ml Output Total 150 ml 1000 ml Balance 465 ml -150.000 ml Intake Free Water 200 ml 130 ml IV Total 55 ml 360.000 ml Tube Feeding 360 ml 360 ml Output Urine Total 150 ml 1000 ml # Voids 2 1 # Bowel Movements 1 1 Laboratory Tests Test 05/07/17 04:00 White Blood Count 15.5 K/UL (4.8-10.8) H Red Blood Count 2.64 M/UL (4.20-5.40) L Hemoglobin 8.4 G/DL (12.0-16.0) L Hematocrit 24.9 % (37.0-47.0) L Mean Corpuscular Volume 94 FL (80-99) Mean Corpuscular Hemoglobin 31.7 PG (27.0-31.0) H Mean Corpuscular Hemoglobin Concent 33.6 G/DL (32.0-36.0) Red Cell Distribution Width 12.7 % (11.6-14.8) Platelet Count 403 K/UL (150-450) Mean Platelet Volume 8.5 FL (6.5-10.1) Neutrophils (%) (Auto) 74.8 % (45.0-75.0) Lymphocytes (%) (Auto) 8.9 % (20.0-45.0) L Monocytes (%) (Auto) 10.2 % (1.0-10.0) H Eosinophils (%) (Auto) 5.1 % (0.0-3.0) H Basophils (%) (Auto) 1.1 % (0.0-2.0) Sodium Level 139 MMOL/L (136-145) Potassium Level 3.6 MMOL/L (3.5-5.1) Chloride Level 104 MMOL/L (98-107) Carbon Dioxide Level 31 MMOL/L (21-32) Anion Gap 4 mmol/L (5-15) L Blood Urea Nitrogen 30 mg/dL (7-18) H Creatinine 0.9 MG/DL (0.55-1.30) Estimat Glomerular Filtration Rate mL/min (>60) Glucose Level 106 MG/DL (74-106) Calcium Level 8.3 MG/DL (8.5-10.1) L Phosphorus Level 3.9 MG/DL (2.5-4.9) Magnesium Level 2.1 MG/DL (1.8-2.4) Total Bilirubin 0.2 MG/DL (0.2-1.0) Aspartate Amino Transf (AST/SGOT) 16 U/L (15-37) Alanine Aminotransferase (ALT/SGPT) 47 U/L (12-78) Alkaline Phosphatase 191 U/L (46-116) H Total Protein 6.3 G/DL (6.4-8.2) L Albumin 1.7 G/DL (3.4-5.0) L Globulin 4.6 g/dL Albumin/Globulin Ratio 0.4 (1.0-2.7) L Microbiology Date/Time Source Procedure Growth Status 05/04/17 17:50 Blood Blood Culture - Preliminary NO GROWTH AFTER 48 HOURS Resulted 05/04/17 17:30 Blood Blood Culture - Preliminary NO GROWTH AFTER 48 HOURS Resulted 05/05/17 03:15 Sputum Gram Stain - Final Resulted 05/05/17 03:15 Sputum Culture - Preliminary Gram Negative Bacillus 1 Gram Negative Bacillus 2 Streptococcus Group G Resulted 05/04/17 19:39 Nasal Nares Influenza Types A,B Antigen (ROD) - Final Complete SUNDEEP NOBLE May 07, 2017 16:30
[2017-05-07 20:00] VITALS: BP 110/56
[2017-05-07] MEDS: Dyna-Hex 2% Top Sol 2oz TOPIC SCH (20:54)
--- NOTE | 2017-05-07 21:24 | General Progress Note ---
Assessment/Plan Problem List: (1) Fever ICD Codes: R50.9 - Fever, unspecified SNOMED: 204662747 Qualifiers: Qualified Codes: R50.9 - Fever, unspecified (2) Chronic respiratory failure ICD Codes: J96.10 - Chronic respiratory failure, unspecified whether with hypoxia or hypercapnia SNOMED: 28034054 Qualifiers: Qualified Codes: J96.10 - Chronic respiratory failure, unspecified whether with hypoxia or hypercapnia (3) Diabetes mellitus ICD Codes: E11.9 - Type 2 diabetes mellitus without complications SNOMED: 32294724 (4) Acute on chronic respiratory failure ICD Codes: J96.20 - Acute and chronic respiratory failure, unspecified whether with hypoxia or hypercapnia SNOMED: 97307510 (5) Sepsis ICD Codes: A41.9 - Sepsis, unspecified organism SNOMED: 59248013 Status: progressing Assessment/Plan trach and peg pna improving bradycardia consulted dr thibodeaux no acute events dc planning Subjective ROS Limited/Unobtainable: Yes Allergies: Coded Allergies: CODEINE (Unverified Allergy, Unknown, 01/10/17) PENICILLINS (Unverified Allergy, Unknown, 01/10/17) Objective Last 24 Hour Vital Signs Date Time Temp Pulse Resp B/P (MAP) Pulse Ox O2 Delivery O2 Flow Rate FiO2 05/07/17 21:15 63 12 35 05/07/17 20:02 70 05/07/17 18:57 69 12 35 05/07/17 16:45 72 13 35 05/07/17 16:00 98.4 63 10 130/63 99 Mechanical Ventilator 35 98.4 05/07/17 16:00 35 05/07/17 16:00 76 05/07/17 15:26 70 12 35 05/07/17 13:06 75 11 35 05/07/17 12:00 98.3 73 10 117/57 99 Mechanical Ventilator 35 98.3 05/07/17 12:00 61 05/07/17 12:00 35 05/07/17 10:49 69 10 35 05/07/17 09:15 71 128/59 05/07/17 08:53 71 10 35 05/07/17 08:00 74 05/07/17 08:00 35 05/07/17 08:00 98.4 73 10 128/59 99 Mechanical Ventilator 35 98.4 05/07/17 06:54 74 12 35 05/07/17 05:25 73 12 35 05/07/17 04:00 97.7 77 10 131/69 99 Mechanical Ventilator 35 97.7 05/07/17 04:00 35 05/07/17 03:54 73 05/07/17 03:23 64 10 35 05/07/17 01:15 55 10 35 05/07/17 00:00 35 05/07/17 00:00 57 05/07/17 00:00 98.1 79 11 114/59 99 Mechanical Ventilator 35 98.1 05/06/17 22:53 59 10 35 Intake and Output 05/06/17 05/07/17 19:00 07:00 Intake Total 615 ml 850.000 ml Output Total 150 ml 1000 ml Balance 465 ml -150.000 ml Intake Free Water 200 ml 130 ml IV Total 55 ml 360.000 ml Tube Feeding 360 ml 360 ml Output Urine Total 150 ml 1000 ml # Voids 2 1 # Bowel Movements 1 1 Laboratory Tests 05/07/17 04:00: White Blood Count 15.5H, Red Blood Count 2.64L, Hemoglobin 8.4L, Hematocrit 24.9L, Mean Corpuscular Volume 94, Mean Corpuscular Hemoglobin 31.7H, Mean Corpuscular Hemoglobin Concent 33.6, Red Cell Distribution Width 12.7, Platelet Count 403, Mean Platelet Volume 8.5, Neutrophils (%) (Auto) 74.8, Lymphocytes (% ) (Auto) 8.9L, Monocytes (%) (Auto) 10.2H, Eosinophils (%) (Auto) 5.1H, Basophils (%) (Auto) 1.1, Sodium Level 139, Potassium Level 3.6, Chloride Level 104, Carbon Dioxide Level 31, Anion Gap 4L, Blood Urea Nitrogen 30H, Creatinine 0.9, Estimat Glomerular Filtration Rate , Glucose Level 106, Calcium Level 8.3L , Phosphorus Level 3.9, Magnesium Level 2.1, Total Bilirubin 0.2, Aspartate Amino Transf (AST/SGOT) 16, Alanine Aminotransferase (ALT/SGPT) 47, Alkaline Phosphatase 191H, Total Protein 6.3L, Albumin 1.7L, Globulin 4.6, Albumin/ Globulin Ratio 0.4L 05/07/17 19:30: Vancomycin Level Trough 23.8H Height (Feet): 4 Height (Inches): 11.00 Weight (Pounds): 119 Respiratory/Chest: lungs clear Abdomen: soft Fernandez Gomez MD May 07, 2017 21:24
--- NOTE | 2017-05-07 23:13 | General Progress Note ---
Assessment/Plan Assessment/Plan 1. Anemia due to underlying chronic disease. --> Anemia workup reviewed. Iron 19, TIBC 204, Folate 39.5, Vit B12 941 --> Continue to closely monitor. --> Hemoglobin goal is above 7. Does not appear to have any evidence of hemolysis. --> Does not need PRBC at this time. --> No occult blood. 2. Leukocytosis appears to be significant and current leukocyte count elevated with neutrophils 84% and therefore is elevated due to underlying infection. --> Currently, is on antibiotics. broad spectrum. Dr. Gonzalez, has evaluated the patient. --> Continues to improve 3. Pneumonia. Broad-spectrum antibiotics. 4. Ventilator-dependent respiratory failure. Started on antibiotic, broad spectrum by Dr. Gonzalez. 5. Methicillin-resistant Staphylococcus aureus in the past. 6. Transaminitis. Subjective Date patient seen: May 07, 2017 Constitutional: Denies: no symptoms, chills, diaphoresis, fever, malaise, weakness, other HEENT: Denies: no symptoms, eye pain, blurred vision, tearing, double vision, ear pain, ear discharge, nose pain, nose congestion, throat pain, throat swelling, mouth pain, mouth swelling, other Cardiovascular: Denies: no symptoms, chest pain, edema, irregular heart rate, lightheadedness, palpitations, syncope, other Respiratory: Denies: no symptoms, cough, orthopnea, shortness of breath, SOB with excertion, SOB at rest, sputum, stridor, wheezing, other Gastrointestinal/Abdominal: Denies: no symptoms, abdomen distended, abdominal pain, black stools, tarry stools, blood in stool, constipated, diarrhea, difficulty swallowing, nausea, poor appetite, poor fluid intake, rectal bleeding , vomiting, other Genitourinary: Denies: no symptoms, burning, discharge, frequency, flank pain, hematuria, incontinence, pain, urgency, other Neurologic/Psychiatric: Denies: no symptoms, anxiety, depressed, emotional problems, headache, numbness, paresthesia, pre-existing deficit, seizure, tingling, tremors, weakness, other Hematologic/Lymphatic: Reports: anemia Allergies: Coded Allergies: CODEINE (Unverified Allergy, Unknown, 01/10/17) PENICILLINS (Unverified Allergy, Unknown, 01/10/17) Subjective On antibiotics. No major events. Improved. Objective Last 24 Hour Vital Signs Date Time Temp Pulse Resp B/P (MAP) Pulse Ox O2 Delivery O2 Flow Rate FiO2 05/07/17 22:33 78 14 35 05/07/17 21:15 63 12 35 05/07/17 20:02 70 05/07/17 20:00 98.7 71 15 110/56 99 Mechanical Ventilator 35 98.7 05/07/17 20:00 35 05/07/17 18:57 69 12 35 05/07/17 16:45 72 13 35 05/07/17 16:00 98.4 63 10 130/63 99 Mechanical Ventilator 35 98.4 05/07/17 16:00 35 05/07/17 16:00 76 05/07/17 15:26 70 12 35 05/07/17 13:06 75 11 35 05/07/17 12:00 98.3 73 10 117/57 99 Mechanical Ventilator 35 98.3 05/07/17 12:00 61 05/07/17 12:00 35 05/07/17 10:49 69 10 35 05/07/17 09:15 71 128/59 05/07/17 08:53 71 10 35 05/07/17 08:00 74 05/07/17 08:00 35 05/07/17 08:00 98.4 73 10 128/59 99 Mechanical Ventilator 35 98.4 05/07/17 06:54 74 12 35 05/07/17 05:25 73 12 35 05/07/17 04:00 97.7 77 10 131/69 99 Mechanical Ventilator 35 97.7 05/07/17 04:00 35 05/07/17 03:54 73 05/07/17 03:23 64 10 35 05/07/17 01:15 55 10 35 05/07/17 00:00 35 05/07/17 00:00 57 05/07/17 00:00 98.1 79 11 114/59 99 Mechanical Ventilator 35 98.1 Intake and Output 05/06/17 05/07/17 19:00 07:00 Intake Total 615 ml 850.000 ml Output Total 150 ml 1000 ml Balance 465 ml -150.000 ml Intake Free Water 200 ml 130 ml IV Total 55 ml 360.000 ml Tube Feeding 360 ml 360 ml Output Urine Total 150 ml 1000 ml # Voids 2 1 # Bowel Movements 1 1 Laboratory Tests 2/22/18 04:00: White Blood Count 15.5H, Red Blood Count 2.64L, Hemoglobin 8.4L, Hematocrit 24.9L, Mean Corpuscular Volume 94, Mean Corpuscular Hemoglobin 31.7H, Mean Corpuscular Hemoglobin Concent 33.6, Red Cell Distribution Width 12.7, Platelet Count 403, Mean Platelet Volume 8.5, Neutrophils (%) (Auto) 74.8, Lymphocytes (% ) (Auto) 8.9L, Monocytes (%) (Auto) 10.2H, Eosinophils (%) (Auto) 5.1H, Basophils (%) (Auto) 1.1, Sodium Level 139, Potassium Level 3.6, Chloride Level 104, Carbon Dioxide Level 31, Anion Gap 4L, Blood Urea Nitrogen 30H, Creatinine 0.9, Estimat Glomerular Filtration Rate , Glucose Level 106, Calcium Level 8.3L , Phosphorus Level 3.9, Magnesium Level 2.1, Total Bilirubin 0.2, Aspartate Amino Transf (AST/SGOT) 16, Alanine Aminotransferase (ALT/SGPT) 47, Alkaline Phosphatase 191H, Total Protein 6.3L, Albumin 1.7L, Globulin 4.6, Albumin/ Globulin Ratio 0.4L 05/07/17 19:30: Vancomycin Level Trough 23.8H Height (Feet): 4 Height (Inches): 11.00 Weight (Pounds): 119 General Appearance: no apparent distress Cardiovascular: normal rate Respiratory/Chest: decreased breath sounds Abdomen: non tender Reinier Lou May 07, 2017 23:13
[2017-05-08] VITALS: BP 105/62
--- NOTE | 2017-05-08 00:02 | Consultation ---
DATE OF CONSULTATION: 05/07/2017 NOTE: POOR AUDIO CARDIOLOGY CONSULTATION REFERRING PHYSICIAN: Fernandez Gomez M.D. REASON FOR CONSULTATION: Management of hypertension and bradycardia. HISTORY OF PRESENT ILLNESS: The patient is a 76-year-old lady with ventilator-dependent respiratory failure, status post tracheostomy as well as history of dysphagia, status post PEG placement, , diabetes, and COPD, who [facility] in [facility] for fever of one day duration. The patient received Tylenol and was afebrile in the emergency room. The patient was evaluated by Infectious Diseases and started on antibiotics. The patient, however, had episodes of bradycardia . Cardiology consultation was obtained for further evaluation and management. PAST MEDICAL HISTORY: As mentioned above. MEDICATIONS: Per reconciliation. ALLERGIES: She is allergic to codeine and penicillin. SOCIAL HISTORY: She lives in a prison. Does not smoke or drink alcohol. FAMILY HISTORY: Noncontributory. REVIEW OF SYSTEMS: Cannot be obtained in view of the patient's mental status and currently nonverbal. PHYSICAL EXAMINATION: VITAL SIGNS: Blood pressure is 117/57, pulse is 70, respirations 18, and she is afebrile. HEAD AND NECK: Shows no JVD and status post tracheostomy. LUNGS: Coarse rhonchi. CARDIOVASCULAR: Shows regular S1 and S2 with no gallop. ABDOMEN: Status post G-tube. EXTREMITIES: There is no pitting edema. LABORATORY AND DIAGNOSTIC DATA: Her 12-lead EKG on 05/04/2017 showed normal sinus rhythm with normal electrocardiogram. Telemetry strip shows a heart rate that at times dropped to 40s. Her labs show initial white count was 26,000, today it is 16.5, hemoglobin is , hematocrit 24.5, and platelet count is 403,000. Sodium 139, potassium 3.6, BUN of 30, creatinine of 0.9, and glucose of 106. Troponin is negative. BNP is 2700. ASSESSMENT AND PLAN: 1. Transient bradycardia. The patient is . I will check a thyroid function test and get an echocardiogram and get a stat set of cardiac enzymes. 2. Hypertension, on mg daily. 3. Sepsis and fever. White count 26,000, on IV antibiotics. 4. Diabetes. 5. Ventilator-dependent respiratory failure, status post tracheostomy. 6. Dysphagia, status post percutaneous endoscopic gastrostomy placement. 7. The patient pneumonia per Dr. Francisco Gonzalez. Thank you very much, Dr. Gomez, for allowing me to participate in the care of this patient. Please do not hesitate to contact me for any questions regarding my evaluation. The case was discussed with the patient's nurse at the bedside. Nolberto Baker M.D. DR: Antwan JOB#: [id number] CC:
[2017-05-08 04:00] VITALS: BP 124/53
[2017-05-08] MEDS: NovoLOG Insulin Flexpen SUBQ SCH ×3 (05:56→17:16)
[2017-05-08] MEDS: Vancomycin 750mg/NS 250ml IVPB SCH (05:57)
[2017-05-08] MEDS: Aztreonam Inj 1 GM in NS 55 ML IVPB SCH ×3 (06:16→22:24)
[2017-05-08 07:51] LABS: BASOPHILS % (AUTO) 0.8 % (0.0-2.0); EOSINOPHILS % (AUTO) 4.4 % (0.0-3.0); HEMATOCRIT 25.9 % (37.0-47.0); HEMOGLOBIN 8.3 G/DL (12.0-16.0); LYMPHOCYTES % (AUTO) 10.8 % (20.0-45.0); MEAN CORPUSCULAR VOLUME 95 FL (80-99); MONOCYTES % (AUTO) 8.6 % (1.0-10.0); NEUTROPHILS % (AUTO) 75.5 % (45.0-75.0); PLATELET COUNT 408 K/UL (150-450); RED BLOOD COUNT 2.73 M/UL (4.20-5.40); RED CELL DISTRIBUTION WIDTH 12.5 % (11.6-14.8)
[2017-05-08 08:15] VITALS: BP 116/64
[2017-05-08 08:21] LABS: ALANINE AMINOTRANSFERASE 33 U/L (12-78); ALBUMIN 1.7 G/DL (3.4-5.0); ALBUMIN/GLOBULIN RATIO 0.4 (1.0-2.7); ALKALINE PHOSPHATASE 178 U/L (46-116); ANION GAP 4 mmol/L (5-15); ASPARTATE AMINO TRANSFERASE 23 U/L (15-37); BILIRUBIN,TOTAL 0.2 MG/DL (0.2-1.0); BLOOD UREA NITROGEN 27 mg/dL (7-18); CALCIUM 8.4 MG/DL (8.5-10.1); CARBON DIOXIDE 30 MMOL/L (21-32); CHLORIDE 109 MMOL/L (98-107); POTASSIUM 4.1 MMOL/L (3.5-5.1); SODIUM 143 MMOL/L (136-145)
--- NOTE | 2017-05-08 08:42 | Diagnostic Imaging Report ---
Indication: Dyspnea Technique: One view of the chest Comparison: 05/07/2017 Findings: Less optimal inspiration currently. Band of atelectasis or scarring is again demonstrated in the right upper lobe. Linear and airspace opacities at the right lung base persists, may be slightly increased. There is slightly improved aeration of the left lung, but volume loss and infiltrates and possibly pleural fluid persists. Impression: Further reexpansion of the left lung, over one day, but volume loss/atelectasis persists. There may also be persistent component of infiltrate and/or pleural fluid Apparent slightly increased right basilar parenchymal opacity, may in part be artifactual due to less optimal inspiration, but could indicate increasing infiltrate
[2017-05-08] MEDS: Heparin 5000 units/ml inj SUBQ SCH ×2 (09:00→20:31)
[2017-05-08] MEDS: Pantoprazole Inj IV SCH (09:57)
[2017-05-08] MEDS ORDERED: Lidocaine 1% MPF 10mg/ml 5ml HHN ONE (10:00)
[2017-05-08] MEDS ORDERED: Heparin 2000 units/Ns 1000ml IV ONE (10:00)
--- NOTE | 2017-05-08 10:52 | Pulmonolgy Critical Care Note ---
Critical Care - Asmt/Plan Problems: (1) Acute on chronic respiratory failure (2) Collapse of left lung (3) HCAP (healthcare-associated pneumonia) (4) Diabetes mellitus (5) COPD (chronic obstructive pulmonary disease) Respiratory: monitor respiratory rate, adjust FIO2, CXR Cardiac: continue to monitor HR/BP Renal: F/U I&O, keep IV fluid Infectious Disease: check cultures Gastrointestinal: continue feedings/current rate, hold feedings Endocrine: monitor blood sugar, check HgA1C Affect: PRN ativan Prophylaxis: Protonix, Heparin Notes Reviewed: cardio Discussed with: nurses, consultants, hospice case managersort manager - Objective Last 24 Hour Vital Signs Date Time Temp Pulse Resp B/P (MAP) Pulse Ox O2 Delivery O2 Flow Rate FiO2 05/08/17 09:58 72 116/64 05/08/17 09:15 76 12 35 05/08/17 07:45 66 05/08/17 06:52 73 14 35 05/08/17 05:18 83 14 35 05/08/17 04:01 75 05/08/17 04:00 98.0 68 12 124/53 99 Mechanical Ventilator 35 98.0 05/08/17 04:00 35 05/08/17 03:18 88 14 35 05/08/17 00:59 66 14 35 05/08/17 00:00 98.2 86 12 105/62 100 Mechanical Ventilator 35 98.2 05/08/17 00:00 74 05/07/17 22:33 78 14 35 05/07/17 21:15 63 12 35 05/07/17 20:02 70 05/07/17 20:00 98.7 71 15 110/56 99 Mechanical Ventilator 35 98.7 05/07/17 20:00 35 05/07/17 18:57 69 12 35 05/07/17 16:45 72 13 35 05/07/17 16:00 98.4 63 10 130/63 99 Mechanical Ventilator 35 98.4 05/07/17 16:00 35 05/07/17 16:00 76 05/07/17 15:26 70 12 35 05/07/17 13:06 75 11 35 05/07/17 12:00 98.3 73 10 117/57 99 Mechanical Ventilator 35 98.3 05/07/17 12:00 61 05/07/17 12:00 35 Status: awake Condition: critical HEENT: atraumatic Neck: full ROM Lungs: clear Heart: HR/BP unstable Abdomen: non-tender, active bowel sounds Extremities: no C/C/E Decubiti: location Accucheck: 110 Critical Care - Subjective ROS Limited/Unobtainable: Yes Condition: critical EKG Rhythm: Sinus Rhythm FI02: 35 Vent Support Breath Rate: 10 Vent Support Mode: AC Vent Tidal Volume: 600 Sputum Amount: Small PEEP: 5.0 PIP: 29 Tube Feeding Amount: 30 I&O: Intake and Output 05/07/17 05/08/17 19:00 07:00 Intake Total 505 ml 440 ml Output Total 600 ml 400 ml Balance -95 ml 40 ml IV Total 55 ml 110 ml Tube Feeding 360 ml 330 ml Other 90 ml Output Urine Total 600 ml 400 ml # Bowel Movements 2 2 CXR: left lung opened up Labs: Laboratory Tests Test 05/07/17 19:30 05/08/17 05:30 Vancomycin Level Trough 23.8 ug/mL (5.0-12.0) H White Blood Count 16.0 K/UL (4.8-10.8) H Red Blood Count 2.73 M/UL (4.20-5.40) L Hemoglobin 8.3 G/DL (12.0-16.0) L Hematocrit 25.9 % (37.0-47.0) L Mean Corpuscular Volume 95 FL (80-99) Mean Corpuscular Hemoglobin 30.3 PG (27.0-31.0) Mean Corpuscular Hemoglobin Concent 32.0 G/DL (32.0-36.0) Red Cell Distribution Width 12.5 % (11.6-14.8) Platelet Count 408 K/UL (150-450) Mean Platelet Volume 8.0 FL (6.5-10.1) Neutrophils (%) (Auto) 75.5 % (45.0-75.0) H Lymphocytes (%) (Auto) 10.8 % (20.0-45.0) L Monocytes (%) (Auto) 8.6 % (1.0-10.0) Eosinophils (%) (Auto) 4.4 % (0.0-3.0) H Basophils (%) (Auto) 0.8 % (0.0-2.0) Sodium Level 143 MMOL/L (136-145) Potassium Level 4.1 MMOL/L (3.5-5.1) Chloride Level 109 MMOL/L (98-107) H Carbon Dioxide Level 30 MMOL/L (21-32) Anion Gap 4 mmol/L (5-15) L Blood Urea Nitrogen 27 mg/dL (7-18) H Creatinine 1.0 MG/DL (0.55-1.30) Estimat Glomerular Filtration Rate mL/min (>60) Glucose Level 98 MG/DL (74-106) Calcium Level 8.4 MG/DL (8.5-10.1) L Total Bilirubin 0.2 MG/DL (0.2-1.0) Aspartate Amino Transf (AST/SGOT) 23 U/L (15-37) Alanine Aminotransferase (ALT/SGPT) 33 U/L (12-78) Alkaline Phosphatase 178 U/L (46-116) H Troponin I 0.000 ng/mL (0.000-0.056) Pro-B-Type Natriuretic Peptide 1319 pg/mL (0-125) H Total Protein 6.2 G/DL (6.4-8.2) L Albumin 1.7 G/DL (3.4-5.0) L Globulin 4.5 g/dL Albumin/Globulin Ratio 0.4 (1.0-2.7) L Thyroid Stimulating Hormone (TSH) 2.120 uiU/mL (0.358-3.740) Free Thyroxine 1.08 NG/DL (0.76-1.46) YOVANNY CARRINGTON May 08, 2017 10:52
--- NOTE | 2017-05-08 11:02 | Infectious Diseases Prog Note ---
Assessment/Plan Assessment/Plan A; Pneumonia VDRF COPD Anemia Penicillin allergy P; Continue Azactam & Vancomycin will f/u cultures if no other IV access, agree with PICC line placement & removal of femoral line case was d/W RN & microbiology Subjective ROS Limited/Unobtainable: Yes Allergies: Coded Allergies: CODEINE (Unverified Allergy, Unknown, 01/10/17) PENICILLINS (Unverified Allergy, Unknown, 01/10/17) Objective Vital Signs Last 24 Hour Vital Signs Date Time Temp Pulse Resp B/P (MAP) Pulse Ox O2 Delivery O2 Flow Rate FiO2 05/08/17 09:58 72 116/64 05/08/17 09:15 76 12 35 05/08/17 07:45 66 05/08/17 06:52 73 14 35 05/08/17 05:18 83 14 35 05/08/17 04:01 75 05/08/17 04:00 98.0 68 12 124/53 99 Mechanical Ventilator 35 98.0 05/08/17 04:00 35 05/08/17 03:18 88 14 35 05/08/17 00:59 66 14 35 05/08/17 00:00 98.2 86 12 105/62 100 Mechanical Ventilator 35 98.2 05/08/17 00:00 74 05/07/17 22:33 78 14 35 05/07/17 21:15 63 12 35 05/07/17 20:02 70 05/07/17 20:00 98.7 71 15 110/56 99 Mechanical Ventilator 35 98.7 05/07/17 20:00 35 05/07/17 18:57 69 12 35 05/07/17 16:45 72 13 35 05/07/17 16:00 98.4 63 10 130/63 99 Mechanical Ventilator 35 98.4 05/07/17 16:00 35 05/07/17 16:00 76 05/07/17 15:26 70 12 35 05/07/17 13:06 75 11 35 05/07/17 12:00 98.3 73 10 117/57 99 Mechanical Ventilator 35 98.3 05/07/17 12:00 61 05/07/17 12:00 35 Height (Feet): 4 Height (Inches): 11.00 Weight (Pounds): 120 General Appearance: no acute distress HEENT: status post trach Respiratory/Chest: decreased breath sounds, other - on ventilator Cardiovascular: normal rate, other - R femoral central line Abdomen: soft, non tender, other - GT feeding Extremities: no edema Skin: ulcers, other - tip of nose Neurologic/Psychiatric: alert, responsive Laboratory Tests Test 05/07/17 19:30 05/08/17 05:30 Vancomycin Level Trough 23.8 ug/mL (5.0-12.0) H White Blood Count 16.0 K/UL (4.8-10.8) H Red Blood Count 2.73 M/UL (4.20-5.40) L Hemoglobin 8.3 G/DL (12.0-16.0) L Hematocrit 25.9 % (37.0-47.0) L Mean Corpuscular Volume 95 FL (80-99) Mean Corpuscular Hemoglobin 30.3 PG (27.0-31.0) Mean Corpuscular Hemoglobin Concent 32.0 G/DL (32.0-36.0) Red Cell Distribution Width 12.5 % (11.6-14.8) Platelet Count 408 K/UL (150-450) Mean Platelet Volume 8.0 FL (6.5-10.1) Neutrophils (%) (Auto) 75.5 % (45.0-75.0) H Lymphocytes (%) (Auto) 10.8 % (20.0-45.0) L Monocytes (%) (Auto) 8.6 % (1.0-10.0) Eosinophils (%) (Auto) 4.4 % (0.0-3.0) H Basophils (%) (Auto) 0.8 % (0.0-2.0) Sodium Level 143 MMOL/L (136-145) Potassium Level 4.1 MMOL/L (3.5-5.1) Chloride Level 109 MMOL/L (98-107) H Carbon Dioxide Level 30 MMOL/L (21-32) Anion Gap 4 mmol/L (5-15) L Blood Urea Nitrogen 27 mg/dL (7-18) H Creatinine 1.0 MG/DL (0.55-1.30) Estimat Glomerular Filtration Rate mL/min (>60) Glucose Level 98 MG/DL (74-106) Calcium Level 8.4 MG/DL (8.5-10.1) L Total Bilirubin 0.2 MG/DL (0.2-1.0) Aspartate Amino Transf (AST/SGOT) 23 U/L (15-37) Alanine Aminotransferase (ALT/SGPT) 33 U/L (12-78) Alkaline Phosphatase 178 U/L (46-116) H Troponin I 0.000 ng/mL (0.000-0.056) Pro-B-Type Natriuretic Peptide 1319 pg/mL (0-125) H Total Protein 6.2 G/DL (6.4-8.2) L Albumin 1.7 G/DL (3.4-5.0) L Globulin 4.5 g/dL Albumin/Globulin Ratio 0.4 (1.0-2.7) L Thyroid Stimulating Hormone (TSH) 2.120 uiU/mL (0.358-3.740) Free Thyroxine 1.08 NG/DL (0.76-1.46) Current Medications Medications (Trade) Dose Ordered Sig/Sky Route PRN Reason Start Time Stop Time Status Last Admin Dose Admin Acetaminophen (Tylenol) 650 mg Q4H PRN ORAL T>100.5 05/04/17 20:15 06/03/17 20:14 05/07/17 13:58 Albuterol/ Ipratropium (Albuterol/ Ipratropium) 3 ml Q4H PRN HHN Shortness of Breath 05/04/17 20:15 05/09/17 20:14 Amlodipine Besylate (Norvasc) 2.5 mg DAILY GT 05/05/17 09:00 06/04/17 08:59 05/08/17 09:58 Aztreonam 1 gm/ Sodium Chloride 55 ml @ 110 mls/hr Q8HR IVPB 05/04/17 22:00 05/11/17 21:59 05/08/17 06:16 Chlorhexidine Gluconate (Myra-Hex 2%) 1 applic DAILY@2000 TOPIC 05/05/17 20:00 06/04/17 19:59 05/07/17 20:54 Dextrose (Dextrose 50%) STAT PRN IV Hypoglycemia 05/05/17 16:00 06/04/17 15:59 Heparin Sodium (Porcine) (Heparin 5000 units/ml) 5,000 units EVERY 12 HOURS SUBQ 05/04/17 21:00 06/03/17 20:59 05/07/17 20:56 Insulin Aspart (NovoLOG) EVERY 6 HOURS SUBQ 05/05/17 18:00 06/04/17 16:29 05/07/17 23:33 Lorazepam (Ativan 2mg/ml 1ml) 2 mg Q2H PRN IV For Anxiety 05/04/17 20:15 05/11/17 20:14 Ondansetron HCl (Zofran) 4 mg Q6H PRN IVP Nausea & Vomiting 05/04/17 20:15 06/03/17 20:14 Pantoprazole (Protonix) 40 mg DAILY IV 05/07/17 09:00 06/04/17 08:59 05/08/17 09:57 Polyethylene Glycol (Miralax) 17 gm DAILYPRN PRN ORAL Constipation 05/04/17 20:15 06/03/17 20:14 Vancomycin HCl (Vanco rx to dose) 1 ea DAILY PRN MISC Per rx protocol 05/04/17 21:00 06/03/17 20:59 Vancomycin/Sodium Chloride 250 ml @ 166.667 mls/hr Q24H IVPB 05/08/17 06:00 05/13/17 05:59 05/08/17 05:57 DEEDEE KENDALL May 08, 2017 11:02
[2017-05-08 12:00] VITALS: BP 127/57
--- NOTE | 2017-05-08 14:07 | Nephrology Progress Note ---
Assessment/Plan Problem List: (1) Chronic respiratory failure (2) Azotemia (3) Proteinuria Assessment 76 y old- Admitted with fever & Pneumonia - Has chronic Respiratory failure Mild Azotemia- Proteinuria likely Diabetic Nephropathy HypoAlbuminemia, r/o Nephrotic Syndrom Anemia , etiology?? PEG Stable from renal stand Plan Plan: Pulmonary support- AntiBiotics IV iron Anemia workup: low Iron Keep BP and BS in check Urine studies DC IV fluid Subjective ROS Limited/Unobtainable: Yes Objective Objective Last 24 Hour Vital Signs Date Time Temp Pulse Resp B/P (MAP) Pulse Ox O2 Delivery O2 Flow Rate FiO2 05/08/17 12:55 75 13 35 05/08/17 12:00 97.9 83 13 127/57 97 Mechanical Ventilator 35 97.9 05/08/17 10:55 71 12 35 05/08/17 09:58 72 116/64 05/08/17 09:15 76 12 35 05/08/17 08:15 97.9 72 10 116/64 99 Mechanical Ventilator 35 97.9 05/08/17 08:00 35 05/08/17 07:45 66 05/08/17 06:52 73 14 35 05/08/17 05:18 83 14 35 05/08/17 04:01 75 05/08/17 04:00 98.0 68 12 124/53 99 Mechanical Ventilator 35 98.0 05/08/17 04:00 35 05/08/17 03:18 88 14 35 05/08/17 00:59 66 14 35 05/08/17 00:00 98.2 86 12 105/62 100 Mechanical Ventilator 35 98.2 05/08/17 00:00 74 05/07/17 22:33 78 14 35 05/07/17 21:15 63 12 35 05/07/17 20:02 70 05/07/17 20:00 98.7 71 15 110/56 99 Mechanical Ventilator 35 98.7 05/07/17 20:00 35 05/07/17 18:57 69 12 35 05/07/17 16:45 72 13 35 05/07/17 16:00 98.4 63 10 130/63 99 Mechanical Ventilator 35 98.4 05/07/17 16:00 35 05/07/17 16:00 76 05/07/17 15:26 70 12 35 Intake and Output 05/07/17 05/08/17 19:00 07:00 Intake Total 505 ml 440 ml Output Total 600 ml 400 ml Balance -95 ml 40 ml IV Total 55 ml 110 ml Tube Feeding 360 ml 330 ml Other 90 ml Output Urine Total 600 ml 400 ml # Bowel Movements 2 2 Laboratory Tests 05/07/17 19:30: Vancomycin Level Trough 23.8H 05/08/17 05:30: White Blood Count 16.0H, Red Blood Count 2.73L, Hemoglobin 8.3L, Hematocrit 25.9L, Mean Corpuscular Volume 95, Mean Corpuscular Hemoglobin 30.3, Mean Corpuscular Hemoglobin Concent 32.0, Red Cell Distribution Width 12.5, Platelet Count 408, Mean Platelet Volume 8.0, Neutrophils (%) (Auto) 75.5H, Lymphocytes ( %) (Auto) 10.8L, Monocytes (%) (Auto) 8.6, Eosinophils (%) (Auto) 4.4H, Basophils (%) (Auto) 0.8, Sodium Level 143, Potassium Level 4.1, Chloride Level 109H, Carbon Dioxide Level 30, Anion Gap 4L, Blood Urea Nitrogen 27H, Creatinine 1.0, Estimat Glomerular Filtration Rate , Glucose Level 98, Calcium Level 8.4L, Total Bilirubin 0.2, Aspartate Amino Transf (AST/SGOT) 23, Alanine Aminotransferase (ALT/SGPT) 33, Alkaline Phosphatase 178H, Troponin I 0.000, Pro -B-Type Natriuretic Peptide 1319H, Total Protein 6.2L, Albumin 1.7L, Globulin 4.5, Albumin/Globulin Ratio 0.4L, Thyroid Stimulating Hormone (TSH) 2.120, Free Thyroxine 1.08 Height (Feet): 4 Height (Inches): 11.00 Weight (Pounds): 120 General Appearance: no apparent distress Objective no change PARVIZ ALFARO May 08, 2017 14:07
[2017-05-08 16:00] VITALS: BP 124/42
--- NOTE | 2017-05-08 16:03 | Diagnostic Imaging Report ---
Indications: Needs long-term IV access Technique: Procedure performed at bedside. Procedural timeout performed. Ultrasound confirms patent compressible left basilic vein. Total sterile technique, including sterile probe cover and sterile gel, sterile gloves, hand hygiene, hat, mask,, sterile gown, large sterile drape, and preparation with 2% chlorhexidine utilized. Local anesthesia with 1% lidocaine. Under real-time ultrasound guidance, puncture is vein using 21-gauge needle, passage 0.018 guidewire, exchange for 5 [place]amese peel-away sheath. 5 [place]e Bard dual-lumen power PICC cut to 38 cm. It was inserted through the peel-away sheath. Peel-away sheath and guidewire removed. Catheter fixed to the skin. Both catheter ports aspirated and flushed. Patient tolerated procedure well, without immediate complication. Followup chest x-ray obtained, documents catheter tip position at the cavoatrial junction or high right atrium Impression: Successful bedside placement of left arm PICC under sonographic guidance, as described above.
--- NOTE | 2017-05-08 16:13 | Cardiac Electrophysiology PN ---
Assessment/Plan Assessment/Plan 1. Transient bradycardia.Only when sleeping. Echocardiogram pending. No ND. T4 normal 2. Hypertension, on Norvasc 2.5 mg daily. 3. Sepsis and fever due to PNA. White count 26,000, on IV antibiotics.Better 4. Diabetes. 5. Ventilator-dependent respiratory failure, status post tracheostomy. 6. Dysphagia, status post percutaneous endoscopic gastrostomy placement. Subjective Subjective Had transient Sinus unique to 45 again. Mostly when sleeping Objective Last 24 Hour Vital Signs Date Time Temp Pulse Resp B/P (MAP) Pulse Ox O2 Delivery O2 Flow Rate FiO2 05/08/17 15:20 77 12 35 05/08/17 12:55 75 13 35 05/08/17 12:00 97.9 83 13 127/57 97 Mechanical Ventilator 35 97.9 05/08/17 10:55 71 12 35 05/08/17 09:58 72 116/64 05/08/17 09:15 76 12 35 05/08/17 08:15 97.9 72 10 116/64 99 Mechanical Ventilator 35 97.9 05/08/17 08:00 35 05/08/17 07:45 66 05/08/17 06:52 73 14 35 05/08/17 05:18 83 14 35 05/08/17 04:01 75 05/08/17 04:00 98.0 68 12 124/53 99 Mechanical Ventilator 35 98.0 05/08/17 04:00 35 05/08/17 03:18 88 14 35 05/08/17 00:59 66 14 35 05/08/17 00:00 98.2 86 12 105/62 100 Mechanical Ventilator 35 98.2 05/08/17 00:00 74 05/07/17 22:33 78 14 35 05/07/17 21:15 63 12 35 05/07/17 20:02 70 05/07/17 20:00 98.7 71 15 110/56 99 Mechanical Ventilator 35 98.7 05/07/17 20:00 35 05/07/17 18:57 69 12 35 05/07/17 16:45 72 13 35 Intake and Output 05/07/17 05/08/17 19:00 07:00 Intake Total 505 ml 440 ml Output Total 600 ml 400 ml Balance -95 ml 40 ml IV Total 55 ml 110 ml Tube Feeding 360 ml 330 ml Other 90 ml Output Urine Total 600 ml 400 ml # Bowel Movements 2 2 Laboratory Tests Test 05/07/17 19:30 05/08/17 05:30 Vancomycin Level Trough 23.8 ug/mL (5.0-12.0) H White Blood Count 16.0 K/UL (4.8-10.8) H Red Blood Count 2.73 M/UL (4.20-5.40) L Hemoglobin 8.3 G/DL (12.0-16.0) L Hematocrit 25.9 % (37.0-47.0) L Mean Corpuscular Volume 95 FL (80-99) Mean Corpuscular Hemoglobin 30.3 PG (27.0-31.0) Mean Corpuscular Hemoglobin Concent 32.0 G/DL (32.0-36.0) Red Cell Distribution Width 12.5 % (11.6-14.8) Platelet Count 408 K/UL (150-450) Mean Platelet Volume 8.0 FL (6.5-10.1) Neutrophils (%) (Auto) 75.5 % (45.0-75.0) H Lymphocytes (%) (Auto) 10.8 % (20.0-45.0) L Monocytes (%) (Auto) 8.6 % (1.0-10.0) Eosinophils (%) (Auto) 4.4 % (0.0-3.0) H Basophils (%) (Auto) 0.8 % (0.0-2.0) Sodium Level 143 MMOL/L (136-145) Potassium Level 4.1 MMOL/L (3.5-5.1) Chloride Level 109 MMOL/L (98-107) H Carbon Dioxide Level 30 MMOL/L (21-32) Anion Gap 4 mmol/L (5-15) L Blood Urea Nitrogen 27 mg/dL (7-18) H Creatinine 1.0 MG/DL (0.55-1.30) Estimat Glomerular Filtration Rate mL/min (>60) Glucose Level 98 MG/DL (74-106) Calcium Level 8.4 MG/DL (8.5-10.1) L Total Bilirubin 0.2 MG/DL (0.2-1.0) Aspartate Amino Transf (AST/SGOT) 23 U/L (15-37) Alanine Aminotransferase (ALT/SGPT) 33 U/L (12-78) Alkaline Phosphatase 178 U/L (46-116) H Troponin I 0.000 ng/mL (0.000-0.056) Pro-B-Type Natriuretic Peptide 1319 pg/mL (0-125) H Total Protein 6.2 G/DL (6.4-8.2) L Albumin 1.7 G/DL (3.4-5.0) L Globulin 4.5 g/dL Albumin/Globulin Ratio 0.4 (1.0-2.7) L Thyroid Stimulating Hormone (TSH) 2.120 uiU/mL (0.358-3.740) Free Thyroxine 1.08 NG/DL (0.76-1.46) Objective HEAD AND NECK: No JVD and status post tracheostomy. LUNGS: Coarse rhonchi. CARDIOVASCULAR: Regular S1 and S2 with no gallop. ABDOMEN: Status post G-tube. EXTREMITIES: There is no pitting edema. SUNDEEP NOBLE May 08, 2017 16:13
[2017-05-08 20:00] VITALS: BP 138/90
[2017-05-08] MEDS: Dyna-Hex 2% Top Sol 2oz TOPIC SCH (20:30)
--- NOTE | 2017-05-08 21:02 | General Progress Note ---
Assessment/Plan Problem List: (1) Fever ICD Codes: R50.9 - Fever, unspecified SNOMED: 489044716 Qualifiers: Qualified Codes: R50.9 - Fever, unspecified (2) Chronic respiratory failure ICD Codes: J96.10 - Chronic respiratory failure, unspecified whether with hypoxia or hypercapnia SNOMED: 14534588 Qualifiers: Qualified Codes: J96.10 - Chronic respiratory failure, unspecified whether with hypoxia or hypercapnia (3) Diabetes mellitus ICD Codes: E11.9 - Type 2 diabetes mellitus without complications SNOMED: 08915071 (4) Acute on chronic respiratory failure ICD Codes: J96.20 - Acute and chronic respiratory failure, unspecified whether with hypoxia or hypercapnia SNOMED: 03803552 (5) Sepsis ICD Codes: A41.9 - Sepsis, unspecified organism SNOMED: 74022244 Status: deteriorating Assessment/Plan trach and peg lung collapse not stable for transfer unique again pna abx per id deteriotatin bradycardia consulted dr thibodeaux Subjective ROS Limited/Unobtainable: Yes Allergies: Coded Allergies: CODEINE (Unverified Allergy, Unknown, 01/10/17) PENICILLINS (Unverified Allergy, Unknown, 01/10/17) Objective Last 24 Hour Vital Signs Date Time Temp Pulse Resp B/P (MAP) Pulse Ox O2 Delivery O2 Flow Rate FiO2 05/08/17 18:43 76 13 35 05/08/17 17:16 84 12 35 05/08/17 16:02 59 05/08/17 16:00 35 05/08/17 16:00 97.3 70 10 124/42 95 Mechanical Ventilator 35 97.3 05/08/17 15:20 77 12 35 05/08/17 12:55 75 13 35 05/08/17 12:00 97.9 83 13 127/57 97 Mechanical Ventilator 35 97.9 05/08/17 12:00 99 05/08/17 12:00 35 05/08/17 10:55 71 12 35 05/08/17 09:58 72 116/64 05/08/17 09:15 76 12 35 05/08/17 08:15 97.9 72 10 116/64 99 Mechanical Ventilator 35 97.9 05/08/17 08:00 35 05/08/17 07:45 66 05/08/17 06:52 73 14 35 05/08/17 05:18 83 14 35 05/08/17 04:01 75 05/08/17 04:00 98.0 68 12 124/53 99 Mechanical Ventilator 35 98.0 05/08/17 04:00 35 05/08/17 03:18 88 14 35 05/08/17 00:59 66 14 35 05/08/17 00:00 98.2 86 12 105/62 100 Mechanical Ventilator 35 98.2 05/08/17 00:00 74 05/07/17 22:33 78 14 35 05/07/17 21:15 63 12 35 Intake and Output 05/07/17 05/08/17 19:00 07:00 Intake Total 505 ml 470 ml Output Total 600 ml 400 ml Balance -95 ml 70 ml IV Total 55 ml 110 ml Tube Feeding 360 ml 360 ml Other 90 ml Output Urine Total 600 ml 400 ml # Bowel Movements 2 2 Laboratory Tests 05/08/17 05:30: White Blood Count 16.0H, Red Blood Count 2.73L, Hemoglobin 8.3L, Hematocrit 25.9L, Mean Corpuscular Volume 95, Mean Corpuscular Hemoglobin 30.3, Mean Corpuscular Hemoglobin Concent 32.0, Red Cell Distribution Width 12.5, Platelet Count 408, Mean Platelet Volume 8.0, Neutrophils (%) (Auto) 75.5H, Lymphocytes ( %) (Auto) 10.8L, Monocytes (%) (Auto) 8.6, Eosinophils (%) (Auto) 4.4H, Basophils (%) (Auto) 0.8, Sodium Level 143, Potassium Level 4.1, Chloride Level 109H, Carbon Dioxide Level 30, Anion Gap 4L, Blood Urea Nitrogen 27H, Creatinine 1.0, Estimat Glomerular Filtration Rate , Glucose Level 98, Calcium Level 8.4L, Total Bilirubin 0.2, Aspartate Amino Transf (AST/SGOT) 23, Alanine Aminotransferase (ALT/SGPT) 33, Alkaline Phosphatase 178H, Troponin I 0.000, Pro -B-Type Natriuretic Peptide 1319H, Total Protein 6.2L, Albumin 1.7L, Globulin 4.5, Albumin/Globulin Ratio 0.4L, Thyroid Stimulating Hormone (TSH) 2.120, Free Thyroxine 1.08 Height (Feet): 4 Height (Inches): 11.00 Weight (Pounds): 120 General Appearance: confused Respiratory/Chest: lungs clear Fernandez Gomez MD May 08, 2017 21:02
--- NOTE | 2017-05-08 23:47 | General Progress Note ---
Assessment/Plan Assessment/Plan #. Leukocytosis appears to be significant and current leukocyte count elevated with neutrophils 84% and therefore is elevated due to underlying infection. --> Currently, is on vancomycin. Broad spectrum antibiotics. Dr. Gonzalez, has evaluated the patient. --> Continues to improve --> Followup by ID #. Pneumonia. --> On Broad-spectrum antibiotics. #. Anemia due to underlying chronic disease. --> Anemia workup reviewed. Iron 19, TIBC 204, Folate 39.5, Vit B12 941 --> Continue to closely monitor. --> Hemoglobin goal is above 7. Does not appear to have any evidence of hemolysis. --> Does not need PRBC at this time. --> No occult blood. #. Ventilator-dependent respiratory failure. Started on antibiotic, broad spectrum by Dr. Gonzalez. #. Methicillin-resistant Staphylococcus aureus in the past. #. Transaminitis. Subjective Date patient seen: May 08, 2017 Constitutional: Denies: no symptoms, chills, diaphoresis, fever, malaise, weakness, other HEENT: Denies: no symptoms, eye pain, blurred vision, tearing, double vision, ear pain, ear discharge, nose pain, nose congestion, throat pain, throat swelling, mouth pain, mouth swelling, other Cardiovascular: Denies: no symptoms, chest pain, edema, irregular heart rate, lightheadedness, palpitations, syncope, other Respiratory: Denies: no symptoms, cough, orthopnea, shortness of breath, SOB with excertion, SOB at rest, sputum, stridor, wheezing, other Gastrointestinal/Abdominal: Denies: no symptoms, abdomen distended, abdominal pain, black stools, tarry stools, blood in stool, constipated, diarrhea, difficulty swallowing, nausea, poor appetite, poor fluid intake, rectal bleeding , vomiting, other Genitourinary: Denies: no symptoms, burning, discharge, frequency, flank pain, hematuria, incontinence, pain, urgency, other Neurologic/Psychiatric: Denies: no symptoms, anxiety, depressed, emotional problems, headache, numbness, paresthesia, pre-existing deficit, seizure, tingling, tremors, weakness, other Hematologic/Lymphatic: Reports: anemia Allergies: Coded Allergies: CODEINE (Unverified Allergy, Unknown, 01/10/17) PENICILLINS (Unverified Allergy, Unknown, 01/10/17) Subjective Leukocytosis improving on abx. Objective Last 24 Hour Vital Signs Date Time Temp Pulse Resp B/P (MAP) Pulse Ox O2 Delivery O2 Flow Rate FiO2 05/08/17 23:15 81 11 35 05/08/17 21:25 70 10 35 05/08/17 20:00 71 05/08/17 20:00 97.8 90 14 138/90 99 Mechanical Ventilator 35 97.8 05/08/17 20:00 35 05/08/17 18:43 76 13 35 05/08/17 17:16 84 12 35 05/08/17 16:02 59 05/08/17 16:00 35 05/08/17 16:00 97.3 70 10 124/42 95 Mechanical Ventilator 35 97.3 05/08/17 15:20 77 12 35 05/08/17 12:55 75 13 35 05/08/17 12:00 97.9 83 13 127/57 97 Mechanical Ventilator 35 97.9 05/08/17 12:00 99 05/08/17 12:00 35 05/08/17 10:55 71 12 35 05/08/17 09:58 72 116/64 05/08/17 09:15 76 12 35 05/08/17 08:15 97.9 72 10 116/64 99 Mechanical Ventilator 35 97.9 05/08/17 08:00 35 05/08/17 07:45 66 05/08/17 06:52 73 14 35 05/08/17 05:18 83 14 35 05/08/17 04:01 75 05/08/17 04:00 98.0 68 12 124/53 99 Mechanical Ventilator 35 98.0 05/08/17 04:00 35 05/08/17 03:18 88 14 35 05/08/17 00:59 66 14 35 05/08/17 00:00 98.2 86 12 105/62 100 Mechanical Ventilator 35 98.2 05/08/17 00:00 74 Intake and Output 05/07/17 05/08/17 19:00 07:00 Intake Total 505 ml 470 ml Output Total 600 ml 400 ml Balance -95 ml 70 ml IV Total 55 ml 110 ml Tube Feeding 360 ml 360 ml Other 90 ml Output Urine Total 600 ml 400 ml # Bowel Movements 2 2 Laboratory Tests 05/08/17 05:30: White Blood Count 16.0H, Red Blood Count 2.73L, Hemoglobin 8.3L, Hematocrit 25.9L, Mean Corpuscular Volume 95, Mean Corpuscular Hemoglobin 30.3, Mean Corpuscular Hemoglobin Concent 32.0, Red Cell Distribution Width 12.5, Platelet Count 408, Mean Platelet Volume 8.0, Neutrophils (%) (Auto) 75.5H, Lymphocytes ( %) (Auto) 10.8L, Monocytes (%) (Auto) 8.6, Eosinophils (%) (Auto) 4.4H, Basophils (%) (Auto) 0.8, Sodium Level 143, Potassium Level 4.1, Chloride Level 109H, Carbon Dioxide Level 30, Anion Gap 4L, Blood Urea Nitrogen 27H, Creatinine 1.0, Estimat Glomerular Filtration Rate , Glucose Level 98, Calcium Level 8.4L, Total Bilirubin 0.2, Aspartate Amino Transf (AST/SGOT) 23, Alanine Aminotransferase (ALT/SGPT) 33, Alkaline Phosphatase 178H, Troponin I 0.000, Pro -B-Type Natriuretic Peptide 1319H, Total Protein 6.2L, Albumin 1.7L, Globulin 4.5, Albumin/Globulin Ratio 0.4L, Thyroid Stimulating Hormone (TSH) 2.120, Free Thyroxine 1.08 Height (Feet): 4 Height (Inches): 11.00 Weight (Pounds): 120 General Appearance: confused Respiratory/Chest: decreased breath sounds Abdomen: non tender, soft Edema: trace edema Skin: warm/dry Reinier Lou May 08, 2017 23:47
[2017-05-09] VITALS: BP 122/79
[2017-05-09 04:00] VITALS: BP 122/79
[2017-05-09] MEDS: Vancomycin 750mg/NS 250ml IVPB SCH (05:22)
[2017-05-09] MEDS: NovoLOG Insulin Flexpen SUBQ SCH ×4 (05:27→17:18)
[2017-05-09 05:39] LABS: BASOPHILS % (AUTO) 0.9 % (0.0-2.0); EOSINOPHILS % (AUTO) 4.6 % (0.0-3.0); HEMATOCRIT 25.8 % (37.0-47.0); HEMOGLOBIN 8.5 G/DL (12.0-16.0); LYMPHOCYTES % (AUTO) 13.8 % (20.0-45.0); MEAN CORPUSCULAR VOLUME 94 FL (80-99); MONOCYTES % (AUTO) 9.9 % (1.0-10.0); NEUTROPHILS % (AUTO) 70.8 % (45.0-75.0); PLATELET COUNT 399 K/UL (150-450); RED BLOOD COUNT 2.73 M/UL (4.20-5.40); RED CELL DISTRIBUTION WIDTH 12.8 % (11.6-14.8); WHITE BLOOD COUNT 13.5 K/UL (4.8-10.8)
[2017-05-09 05:53] LABS: ALANINE AMINOTRANSFERASE 31 U/L (12-78); ALBUMIN 1.7 G/DL (3.4-5.0); ALBUMIN/GLOBULIN RATIO 0.4 (1.0-2.7); ALKALINE PHOSPHATASE 177 U/L (46-116); ANION GAP 7 mmol/L (5-15); ASPARTATE AMINO TRANSFERASE 21 U/L (15-37); BILIRUBIN,TOTAL 0.2 MG/DL (0.2-1.0); BLOOD UREA NITROGEN 23 mg/dL (7-18); CALCIUM 8.3 MG/DL (8.5-10.1); CARBON DIOXIDE 26 MMOL/L (21-32); CHLORIDE 109 MMOL/L (98-107); CREATININE 0.9 MG/DL (0.55-1.30); PHOSPHORUS 2.5 MG/DL (2.5-4.9); POTASSIUM 3.8 MMOL/L (3.5-5.1); SODIUM 142 MMOL/L (136-145)
--- NOTE | 2017-05-09 07:29 | Pulmonolgy Critical Care Note ---
Critical Care - Asmt/Plan Problems: (1) Acute on chronic respiratory failure (2) Collapse of left lung (3) HCAP (healthcare-associated pneumonia) (4) Diabetes mellitus (5) COPD (chronic obstructive pulmonary disease) Respiratory: monitor respiratory rate, adjust FIO2, CXR Cardiac: continue pressors, continue to monitor HR/BP Renal: F/U I&O, keep IV fluid Infectious Disease: check cultures Gastrointestinal: continue feedings/current rate, hold feedings Endocrine: monitor blood sugar, continue sliding scale insulin Hematologic: transfuse if hgb<8.5 Neurologic: keep patient comfortable Prophylaxis: Protonix, Heparin Notes Reviewed: clinical sociologist, cardio Discussed with: nurses, consultants, nurse outreach case managergrain merchandising manager - Objective Last 24 Hour Vital Signs Date Time Temp Pulse Resp B/P (MAP) Pulse Ox O2 Delivery O2 Flow Rate FiO2 05/09/17 05:06 58 16 35 05/09/17 04:00 98.1 88 16 122/79 99 Mechanical Ventilator 35 98.1 05/09/17 04:00 35 05/09/17 04:00 54 05/09/17 02:52 74 16 35 05/09/17 00:51 94 16 35 05/09/17 00:00 98.1 88 16 122/79 99 Mechanical Ventilator 35 98.1 05/09/17 00:00 84 05/09/17 00:00 35 05/08/17 23:15 81 11 35 05/08/17 21:25 70 10 35 05/08/17 20:00 71 05/08/17 20:00 97.8 90 14 138/90 99 Mechanical Ventilator 35 97.8 05/08/17 20:00 35 05/08/17 18:43 76 13 35 05/08/17 17:16 84 12 35 05/08/17 16:02 59 05/08/17 16:00 35 05/08/17 16:00 97.3 70 10 124/42 95 Mechanical Ventilator 35 97.3 05/08/17 15:20 77 12 35 05/08/17 12:55 75 13 35 05/08/17 12:00 97.9 83 13 127/57 97 Mechanical Ventilator 35 97.9 05/08/17 12:00 99 05/08/17 12:00 35 05/08/17 10:55 71 12 35 05/08/17 09:58 72 116/64 05/08/17 09:15 76 12 35 05/08/17 08:15 97.9 72 10 116/64 99 Mechanical Ventilator 35 97.9 05/08/17 08:00 35 05/08/17 07:45 66 Status: awake Condition: critical HEENT: atraumatic Neck: full ROM Lungs: clear Abdomen: soft, non-tender Extremities: no C/C/E, edema Decubiti: location, stage Accucheck: 115 Critical Care - Subjective ROS Limited/Unobtainable: No Condition: critical EKG Rhythm: Sinus Rhythm FI02: 35 Vent Support Breath Rate: 16 Vent Support Mode: AC Vent Tidal Volume: 600 Sputum Amount: Small PEEP: 5.0 PIP: 32 Tube Feeding Amount: 30 I&O: Intake and Output 05/08/17 05/09/17 19:00 07:00 Intake Total 430 ml 205 ml Output Total 600 ml Balance -170 ml 205 ml Intake Free Water 100 ml 0 ml IV Total 55 ml Tube Feeding 330 ml 150 ml Output Urine Total 600 ml # Bowel Movements 1 CXR: trach intact, no changes Labs: Laboratory Tests Test 05/09/17 03:45 White Blood Count 13.5 K/UL (4.8-10.8) H Red Blood Count 2.73 M/UL (4.20-5.40) L Hemoglobin 8.5 G/DL (12.0-16.0) L Hematocrit 25.8 % (37.0-47.0) L Mean Corpuscular Volume 94 FL (80-99) Mean Corpuscular Hemoglobin 31.1 PG (27.0-31.0) H Mean Corpuscular Hemoglobin Concent 32.9 G/DL (32.0-36.0) Red Cell Distribution Width 12.8 % (11.6-14.8) Platelet Count 399 K/UL (150-450) Mean Platelet Volume 7.7 FL (6.5-10.1) Neutrophils (%) (Auto) 70.8 % (45.0-75.0) Lymphocytes (%) (Auto) 13.8 % (20.0-45.0) L Monocytes (%) (Auto) 9.9 % (1.0-10.0) Eosinophils (%) (Auto) 4.6 % (0.0-3.0) H Basophils (%) (Auto) 0.9 % (0.0-2.0) Sodium Level 142 MMOL/L (136-145) Potassium Level 3.8 MMOL/L (3.5-5.1) Chloride Level 109 MMOL/L (98-107) H Carbon Dioxide Level 26 MMOL/L (21-32) Anion Gap 7 mmol/L (5-15) Blood Urea Nitrogen 23 mg/dL (7-18) H Creatinine 0.9 MG/DL (0.55-1.30) Estimat Glomerular Filtration Rate mL/min (>60) Glucose Level 96 MG/DL (74-106) Calcium Level 8.3 MG/DL (8.5-10.1) L Phosphorus Level 2.5 MG/DL (2.5-4.9) Magnesium Level 1.8 MG/DL (1.8-2.4) Total Bilirubin 0.2 MG/DL (0.2-1.0) Aspartate Amino Transf (AST/SGOT) 21 U/L (15-37) Alanine Aminotransferase (ALT/SGPT) 31 U/L (12-78) Alkaline Phosphatase 177 U/L (46-116) H Total Protein 6.2 G/DL (6.4-8.2) L Albumin 1.7 G/DL (3.4-5.0) L Globulin 4.5 g/dL Albumin/Globulin Ratio 0.4 (1.0-2.7) L YOVANNY CARRINGTON May 09, 2017 07:29
[2017-05-09 08:00] VITALS: BP 149/53
[2017-05-09] MEDS: Aztreonam Inj 1 GM in NS 55 ML IVPB SCH ×5 (08:00→23:40)
[2017-05-09] MEDS: Pantoprazole Inj IV SCH (08:46)
[2017-05-09] MEDS: Heparin 5000 units/ml inj SUBQ SCH ×2 (08:48→20:36)
--- NOTE | 2017-05-09 09:23 | Diagnostic Imaging Report ---
Indication: Reason For Exam: DYSPNEA Technique: XRAY Chest 1v Comparison:05/08/2017 And 05/07/2017 Findings: A left arm PICC line is now in place with the tip in the right atrium. There is volume loss in left hemithorax, increased from previous study. Right pleural effusion is now present. Right lung is otherwise unchanged. Impression: Increased volume loss in the left lung compared to the immediate previous exam. The appearance is similar to 05/07/2017.. Left arm PICC line now in place. Right pleural effusion now present. Patient's nurse on notified by phone 05/09/2017 at 9:16 AM
--- NOTE | 2017-05-09 11:55 | Nephrology Progress Note ---
Assessment/Plan Problem List: (1) Chronic respiratory failure (2) Azotemia (3) Proteinuria Assessment 76 y old- Admitted with fever & Pneumonia - Has chronic Respiratory failure Mild Azotemia- Proteinuria likely Diabetic Nephropathy HypoAlbuminemia, r/o Nephrotic Syndrom Anemia , etiology?? PEG Stable from renal stand Plan Plan: Pulmonary support- AntiBiotics IV iron Anemia workup: low Iron Keep BP and BS in check Urine studies DC IV fluid Subjective ROS Limited/Unobtainable: Yes Objective Objective Last 24 Hour Vital Signs Date Time Temp Pulse Resp B/P (MAP) Pulse Ox O2 Delivery O2 Flow Rate FiO2 05/09/17 11:27 60 16 35 05/09/17 09:06 62 16 35 05/09/17 08:46 102 149/53 05/09/17 08:00 78 05/09/17 08:00 97.5 102 16 149/53 100 Mechanical Ventilator 35 97.5 05/09/17 06:35 68 16 35 05/09/17 05:06 58 16 35 05/09/17 04:00 98.1 88 16 122/79 99 Mechanical Ventilator 35 98.1 05/09/17 04:00 35 05/09/17 04:00 54 05/09/17 02:52 74 16 35 05/09/17 00:51 94 16 35 05/09/17 00:00 98.1 88 16 122/79 99 Mechanical Ventilator 35 98.1 05/09/17 00:00 84 05/09/17 00:00 35 05/08/17 23:15 81 11 35 05/08/17 21:25 70 10 35 05/08/17 20:00 71 05/08/17 20:00 97.8 90 14 138/90 99 Mechanical Ventilator 35 97.8 05/08/17 20:00 35 05/08/17 18:43 76 13 35 05/08/17 17:16 84 12 35 05/08/17 16:02 59 05/08/17 16:00 35 05/08/17 16:00 97.3 70 10 124/42 95 Mechanical Ventilator 35 97.3 05/08/17 15:20 77 12 35 05/08/17 12:55 75 13 35 05/08/17 12:00 97.9 83 13 127/57 97 Mechanical Ventilator 35 97.9 05/08/17 12:00 99 05/08/17 12:00 35 Intake and Output 05/08/17 05/09/17 19:00 07:00 Intake Total 430 ml 205 ml Output Total 600 ml Balance -170 ml 205 ml Intake Free Water 100 ml 0 ml IV Total 55 ml Tube Feeding 330 ml 150 ml Output Urine Total 600 ml # Bowel Movements 1 Laboratory Tests 05/09/17 03:45: White Blood Count 13.5H, Red Blood Count 2.73L, Hemoglobin 8.5L, Hematocrit 25.8L, Mean Corpuscular Volume 94, Mean Corpuscular Hemoglobin 31.1H, Mean Corpuscular Hemoglobin Concent 32.9, Red Cell Distribution Width 12.8, Platelet Count 399, Mean Platelet Volume 7.7, Neutrophils (%) (Auto) 70.8, Lymphocytes (% ) (Auto) 13.8L, Monocytes (%) (Auto) 9.9, Eosinophils (%) (Auto) 4.6H, Basophils (%) (Auto) 0.9, Sodium Level 142, Potassium Level 3.8, Chloride Level 109H, Carbon Dioxide Level 26, Anion Gap 7, Blood Urea Nitrogen 23H, Creatinine 0.9, Estimat Glomerular Filtration Rate , Glucose Level 96, Calcium Level 8.3L, Phosphorus Level 2.5, Magnesium Level 1.8, Total Bilirubin 0.2, Aspartate Amino Transf (AST/SGOT) 21, Alanine Aminotransferase (ALT/SGPT) 31, Alkaline Phosphatase 177H, Total Protein 6.2L, Albumin 1.7L, Globulin 4.5, Albumin/ Globulin Ratio 0.4L Height (Feet): 4 Height (Inches): 11.00 Weight (Pounds): 120 General Appearance: no apparent distress Objective no change PARVIZ ALFARO May 09, 2017 11:55
[2017-05-09 12:00] VITALS: BP 138/77
--- NOTE | 2017-05-09 14:44 | Cardiac Electrophysiology PN ---
Assessment/Plan Assessment/Plan 1. Transient bradycardia, only when sleeping. Echocardiogram pending. No [place]. T4 normal 2. Hypertension, on Norvasc 2.5 mg daily. 3. Sepsis and fever due to PNA with White count 26,000, on IV antibiotics 4. Diabetes. 5. Ventilator-dependent respiratory failure, status post tracheostomy. 6. Dysphagia, status post percutaneous endoscopic gastrostomy placement. Dw RN At bedside. Subjective Subjective Gets transient Sinus unique to 40s mostly when sleeping. Asymptomatic. BP stable Objective Last 24 Hour Vital Signs Date Time Temp Pulse Resp B/P (MAP) Pulse Ox O2 Delivery O2 Flow Rate FiO2 05/09/17 13:10 70 16 35 05/09/17 11:27 60 16 35 05/09/17 09:06 62 16 35 05/09/17 08:46 102 149/53 05/09/17 08:00 78 05/09/17 08:00 97.5 102 16 149/53 100 Mechanical Ventilator 35 97.5 05/09/17 06:35 68 16 35 05/09/17 05:06 58 16 35 05/09/17 04:00 98.1 88 16 122/79 99 Mechanical Ventilator 35 98.1 05/09/17 04:00 35 05/09/17 04:00 54 05/09/17 02:52 74 16 35 05/09/17 00:51 94 16 35 05/09/17 00:00 98.1 88 16 122/79 99 Mechanical Ventilator 35 98.1 05/09/17 00:00 84 05/09/17 00:00 35 05/08/17 23:15 81 11 35 05/08/17 21:25 70 10 35 05/08/17 20:00 71 05/08/17 20:00 97.8 90 14 138/90 99 Mechanical Ventilator 35 97.8 05/08/17 20:00 35 05/08/17 18:43 76 13 35 05/08/17 17:16 84 12 35 05/08/17 16:02 59 05/08/17 16:00 35 05/08/17 16:00 97.3 70 10 124/42 95 Mechanical Ventilator 35 97.3 05/08/17 15:20 77 12 35 Intake and Output 05/08/17 05/09/17 19:00 07:00 Intake Total 430 ml 205 ml Output Total 600 ml Balance -170 ml 205 ml Intake Free Water 100 ml 0 ml IV Total 55 ml Tube Feeding 330 ml 150 ml Output Urine Total 600 ml # Bowel Movements 1 Laboratory Tests Test 05/09/17 03:45 White Blood Count 13.5 K/UL (4.8-10.8) H Red Blood Count 2.73 M/UL (4.20-5.40) L Hemoglobin 8.5 G/DL (12.0-16.0) L Hematocrit 25.8 % (37.0-47.0) L Mean Corpuscular Volume 94 FL (80-99) Mean Corpuscular Hemoglobin 31.1 PG (27.0-31.0) H Mean Corpuscular Hemoglobin Concent 32.9 G/DL (32.0-36.0) Red Cell Distribution Width 12.8 % (11.6-14.8) Platelet Count 399 K/UL (150-450) Mean Platelet Volume 7.7 FL (6.5-10.1) Neutrophils (%) (Auto) 70.8 % (45.0-75.0) Lymphocytes (%) (Auto) 13.8 % (20.0-45.0) L Monocytes (%) (Auto) 9.9 % (1.0-10.0) Eosinophils (%) (Auto) 4.6 % (0.0-3.0) H Basophils (%) (Auto) 0.9 % (0.0-2.0) Sodium Level 142 MMOL/L (136-145) Potassium Level 3.8 MMOL/L (3.5-5.1) Chloride Level 109 MMOL/L (98-107) H Carbon Dioxide Level 26 MMOL/L (21-32) Anion Gap 7 mmol/L (5-15) Blood Urea Nitrogen 23 mg/dL (7-18) H Creatinine 0.9 MG/DL (0.55-1.30) Estimat Glomerular Filtration Rate mL/min (>60) Glucose Level 96 MG/DL (74-106) Calcium Level 8.3 MG/DL (8.5-10.1) L Phosphorus Level 2.5 MG/DL (2.5-4.9) Magnesium Level 1.8 MG/DL (1.8-2.4) Total Bilirubin 0.2 MG/DL (0.2-1.0) Aspartate Amino Transf (AST/SGOT) 21 U/L (15-37) Alanine Aminotransferase (ALT/SGPT) 31 U/L (12-78) Alkaline Phosphatase 177 U/L (46-116) H Total Protein 6.2 G/DL (6.4-8.2) L Albumin 1.7 G/DL (3.4-5.0) L Globulin 4.5 g/dL Albumin/Globulin Ratio 0.4 (1.0-2.7) L Objective HEAD AND NECK: Status post tracheostomy. LUNGS: Coarse rhonchi. CARDIOVASCULAR: Regular S1 and S2 with no gallop. ABDOMEN: Status post G-tube. EXTREMITIES: There is no pitting edema. SUNDEEP NOBLE May 09, 2017 14:44
[2017-05-09] MEDS ORDERED: NS 275ml ONE (15:32)
[2017-05-09] MEDS ORDERED: Tubing IV Secondary IV ONE (15:32)
[2017-05-09] MEDS ORDERED: 1/2 NS 1000ml IV ONE (15:32)
[2017-05-09 16:00] VITALS: BP 133/68
[2017-05-09 20:00] VITALS: BP 128/60
[2017-05-09] MEDS: Dyna-Hex 2% Top Sol 2oz TOPIC SCH (20:13)
--- NOTE | 2017-05-09 20:34 | General Progress Note ---
Assessment/Plan Problem List: (1) Fever ICD Codes: R50.9 - Fever, unspecified SNOMED: 686833767 Qualifiers: Qualified Codes: R50.9 - Fever, unspecified (2) Chronic respiratory failure ICD Codes: J96.10 - Chronic respiratory failure, unspecified whether with hypoxia or hypercapnia SNOMED: 01595675 Qualifiers: Qualified Codes: J96.10 - Chronic respiratory failure, unspecified whether with hypoxia or hypercapnia (3) Diabetes mellitus ICD Codes: E11.9 - Type 2 diabetes mellitus without complications SNOMED: 01830852 (4) Acute on chronic respiratory failure ICD Codes: J96.20 - Acute and chronic respiratory failure, unspecified whether with hypoxia or hypercapnia SNOMED: 37530117 (5) Sepsis ICD Codes: A41.9 - Sepsis, unspecified organism SNOMED: 30687975 Status: progressing Assessment/Plan trach and peg lung collapse no wheezing afebrile unique again pna bradycardia consulted dr thibodeaux Subjective ROS Limited/Unobtainable: Yes Allergies: Coded Allergies: CODEINE (Unverified Allergy, Unknown, 01/10/17) PENICILLINS (Unverified Allergy, Unknown, 01/10/17) Objective Last 24 Hour Vital Signs Date Time Temp Pulse Resp B/P (MAP) Pulse Ox O2 Delivery O2 Flow Rate FiO2 05/09/17 20:00 35 05/09/17 20:00 97.4 60 18 128/60 100 Mechanical Ventilator 35 97.4 05/09/17 20:00 58 05/09/17 19:28 61 16 35 05/09/17 17:10 61 16 35 05/09/17 16:00 98.2 70 16 133/68 100 Mechanical Ventilator 35 98.2 05/09/17 16:00 35 05/09/17 16:00 69 05/09/17 15:05 59 16 35 05/09/17 13:10 70 16 35 05/09/17 12:00 35 05/09/17 12:00 98.5 63 14 138/77 100 Mechanical Ventilator 35 98.5 05/09/17 11:46 55 05/09/17 11:27 60 16 35 05/09/17 09:06 62 16 35 05/09/17 08:46 102 149/53 05/09/17 08:00 35 05/09/17 08:00 78 05/09/17 08:00 97.5 102 16 149/53 100 Mechanical Ventilator 35 97.5 05/09/17 06:35 68 16 35 05/09/17 05:06 58 16 35 05/09/17 04:00 98.1 88 16 122/79 99 Mechanical Ventilator 35 98.1 05/09/17 04:00 35 05/09/17 04:00 54 05/09/17 02:52 74 16 35 05/09/17 00:51 94 16 35 05/09/17 00:00 98.1 88 16 122/79 99 Mechanical Ventilator 35 98.1 05/09/17 00:00 84 05/09/17 00:00 35 05/08/17 23:15 81 11 35 05/08/17 21:25 70 10 35 Intake and Output 05/08/17 05/09/17 19:00 07:00 Intake Total 460 ml 355 ml Output Total 600 ml Balance -140 ml 355 ml Intake Free Water 100 ml 0 ml IV Total 55 ml Tube Feeding 360 ml 300 ml Output Urine Total 600 ml # Bowel Movements 1 Laboratory Tests 05/09/17 03:45: White Blood Count 13.5H, Red Blood Count 2.73L, Hemoglobin 8.5L, Hematocrit 25.8L, Mean Corpuscular Volume 94, Mean Corpuscular Hemoglobin 31.1H, Mean Corpuscular Hemoglobin Concent 32.9, Red Cell Distribution Width 12.8, Platelet Count 399, Mean Platelet Volume 7.7, Neutrophils (%) (Auto) 70.8, Lymphocytes (% ) (Auto) 13.8L, Monocytes (%) (Auto) 9.9, Eosinophils (%) (Auto) 4.6H, Basophils (%) (Auto) 0.9, Sodium Level 142, Potassium Level 3.8, Chloride Level 109H, Carbon Dioxide Level 26, Anion Gap 7, Blood Urea Nitrogen 23H, Creatinine 0.9, Estimat Glomerular Filtration Rate , Glucose Level 96, Calcium Level 8.3L, Phosphorus Level 2.5, Magnesium Level 1.8, Total Bilirubin 0.2, Aspartate Amino Transf (AST/SGOT) 21, Alanine Aminotransferase (ALT/SGPT) 31, Alkaline Phosphatase 177H, Total Protein 6.2L, Albumin 1.7L, Globulin 4.5, Albumin/ Globulin Ratio 0.4L Height (Feet): 4 Height (Inches): 11.00 Weight (Pounds): 120 Respiratory/Chest: lungs clear Abdomen: soft Fernandez Gomez MD May 09, 2017 20:34
[2017-05-10] VITALS: BP 126/55
[2017-05-10] MEDS ORDERED: Miralax 17gm pkt GT PRN (01:00)
[2017-05-10 04:00] VITALS: BP 143/76
[2017-05-10 05:09] LABS: BASOPHILS % (AUTO) 0.9 % (0.0-2.0); EOSINOPHILS % (AUTO) 7.2 % (0.0-3.0); HEMATOCRIT 24.8 % (37.0-47.0); HEMOGLOBIN 8.3 G/DL (12.0-16.0); LYMPHOCYTES % (AUTO) 13.4 % (20.0-45.0); MEAN CORPUSCULAR VOLUME 94 FL (80-99); MONOCYTES % (AUTO) 9.2 % (1.0-10.0); NEUTROPHILS % (AUTO) 69.3 % (45.0-75.0); PLATELET COUNT 403 K/UL (150-450); RED BLOOD COUNT 2.65 M/UL (4.20-5.40); WHITE BLOOD COUNT 15.1 K/UL (4.8-10.8)
[2017-05-10 05:27] LABS: ALANINE AMINOTRANSFERASE 37 U/L (12-78); ALBUMIN 1.9 G/DL (3.4-5.0); ALBUMIN/GLOBULIN RATIO 0.4 (1.0-2.7); ALKALINE PHOSPHATASE 179 U/L (46-116); ANION GAP 7 mmol/L (5-15); ASPARTATE AMINO TRANSFERASE 32 U/L (15-37); BILIRUBIN,TOTAL 0.2 MG/DL (0.2-1.0); BLOOD UREA NITROGEN 21 mg/dL (7-18); CALCIUM 8.2 MG/DL (8.5-10.1); CARBON DIOXIDE 26 MMOL/L (21-32); CHLORIDE 108 MMOL/L (98-107); CREATININE 0.9 MG/DL (0.55-1.30); PHOSPHORUS 3.3 MG/DL (2.5-4.9); POTASSIUM 3.6 MMOL/L (3.5-5.1); SODIUM 141 MMOL/L (136-145)
[2017-05-10] MEDS: Vancomycin 750mg/NS 250ml IVPB SCH (05:45)
[2017-05-10] MEDS: NovoLOG Insulin Flexpen SUBQ SCH ×4 (06:00→18:00)
[2017-05-10 08:00] VITALS: BP 115/63
--- NOTE | 2017-05-10 08:02 | Infectious Diseases Prog Note ---
Assessment/Plan Assessment/Plan A; Pneumonia with Providencia & Morganella VDRF COPD Anemia Penicillin allergy P; discontinue Azactam & Vancomycin start on Meropenem Subjective ROS Limited/Unobtainable: Yes Constitutional: Reports: other - dosen't feel good Allergies: Coded Allergies: CODEINE (Unverified Allergy, Unknown, 01/10/17) PENICILLINS (Unverified Allergy, Unknown, 01/10/17) Objective Vital Signs Last 24 Hour Vital Signs Date Time Temp Pulse Resp B/P (MAP) Pulse Ox O2 Delivery O2 Flow Rate FiO2 05/10/17 07:06 76 17 35 05/10/17 05:00 67 18 35 05/10/17 04:00 98.2 81 18 143/76 100 Mechanical Ventilator 35 98.2 05/10/17 04:00 35 05/10/17 04:00 90 05/10/17 03:26 78 17 35 05/10/17 01:13 71 17 35 05/10/17 00:00 98.1 60 20 126/55 100 Mechanical Ventilator 35 98.1 05/10/17 00:00 35 05/10/17 00:00 60 05/09/17 23:00 71 16 35 05/09/17 21:11 62 16 35 05/09/17 20:00 35 05/09/17 20:00 97.4 60 18 128/60 100 Mechanical Ventilator 35 97.4 05/09/17 20:00 58 05/09/17 19:28 61 16 35 05/09/17 17:10 61 16 35 05/09/17 16:00 98.2 70 16 133/68 100 Mechanical Ventilator 35 98.2 05/09/17 16:00 35 05/09/17 16:00 69 05/09/17 15:05 59 16 35 05/09/17 13:10 70 16 35 05/09/17 12:00 35 05/09/17 12:00 98.5 63 14 138/77 100 Mechanical Ventilator 35 98.5 05/09/17 11:46 55 05/09/17 11:27 60 16 35 05/09/17 09:06 62 16 35 05/09/17 08:46 102 149/53 05/09/17 08:00 35 05/09/17 08:00 78 05/09/17 08:00 97.5 102 16 149/53 100 Mechanical Ventilator 35 97.5 Height (Feet): 4 Height (Inches): 11.00 Weight (Pounds): 119 HEENT: status post trach Respiratory/Chest: rhonchi - bilaterally, other - on ventilator Cardiovascular: normal rate, other - left arm PICC line Abdomen: soft, non tender, other - GT feedind Extremities: no edema Neurologic/Psychiatric: alert, responsive Musculoskeletal: atrophy Laboratory Tests Test 05/10/17 03:30 White Blood Count 15.1 K/UL (4.8-10.8) H Red Blood Count 2.65 M/UL (4.20-5.40) L Hemoglobin 8.3 G/DL (12.0-16.0) L Hematocrit 24.8 % (37.0-47.0) L Mean Corpuscular Volume 94 FL (80-99) Mean Corpuscular Hemoglobin 31.4 PG (27.0-31.0) H Mean Corpuscular Hemoglobin Concent 33.6 G/DL (32.0-36.0) Red Cell Distribution Width 13.0 % (11.6-14.8) Platelet Count 403 K/UL (150-450) Mean Platelet Volume 7.7 FL (6.5-10.1) Neutrophils (%) (Auto) 69.3 % (45.0-75.0) Lymphocytes (%) (Auto) 13.4 % (20.0-45.0) L Monocytes (%) (Auto) 9.2 % (1.0-10.0) Eosinophils (%) (Auto) 7.2 % (0.0-3.0) H Basophils (%) (Auto) 0.9 % (0.0-2.0) Sodium Level 141 MMOL/L (136-145) Potassium Level 3.6 MMOL/L (3.5-5.1) Chloride Level 108 MMOL/L (98-107) H Carbon Dioxide Level 26 MMOL/L (21-32) Anion Gap 7 mmol/L (5-15) Blood Urea Nitrogen 21 mg/dL (7-18) H Creatinine 0.9 MG/DL (0.55-1.30) Estimat Glomerular Filtration Rate mL/min (>60) Glucose Level 100 MG/DL (74-106) Calcium Level 8.2 MG/DL (8.5-10.1) L Phosphorus Level 3.3 MG/DL (2.5-4.9) Magnesium Level 1.6 MG/DL (1.8-2.4) L Total Bilirubin 0.2 MG/DL (0.2-1.0) Aspartate Amino Transf (AST/SGOT) 32 U/L (15-37) Alanine Aminotransferase (ALT/SGPT) 37 U/L (12-78) Alkaline Phosphatase 179 U/L (46-116) H Total Protein 6.3 G/DL (6.4-8.2) L Albumin 1.9 G/DL (3.4-5.0) L Globulin 4.4 g/dL Albumin/Globulin Ratio 0.4 (1.0-2.7) L Current Medications Medications (Trade) Dose Ordered Sig/Sky Route PRN Reason Start Time Stop Time Status Last Admin Dose Admin Acetaminophen (Tylenol) 650 mg Q4HR PRN GT Mild Pain/Temp > 100.5 05/10/17 01:00 06/09/17 00:59 Amlodipine Besylate (Norvasc) 2.5 mg DAILY GT 05/05/17 09:00 06/04/17 08:59 05/09/17 08:46 Aztreonam 1 gm/ Sodium Chloride 55 ml @ 110 mls/hr Q8H IVPB 05/09/17 08:00 05/11/17 23:59 05/09/17 23:40 Chlorhexidine Gluconate (Myra-Hex 2%) 1 applic DAILY@2000 TOPIC 05/05/17 20:00 06/04/17 19:59 05/09/17 20:13 Dextrose (Dextrose 50%) STAT PRN IV Hypoglycemia 05/05/17 16:00 06/04/17 15:59 Heparin Sodium (Porcine) (Heparin 5000 units/ml) 5,000 units EVERY 12 HOURS SUBQ 05/04/17 21:00 06/03/17 20:59 05/09/17 20:36 Insulin Aspart (NovoLOG) EVERY 6 HOURS SUBQ 05/05/17 18:00 06/04/17 16:29 05/09/17 05:27 Lorazepam (Ativan 2mg/ml 1ml) 2 mg Q2H PRN IV For Anxiety 05/04/17 20:15 05/11/17 20:14 Ondansetron HCl (Zofran) 4 mg Q6H PRN IVP Nausea & Vomiting 05/04/17 20:15 06/03/17 20:14 Pantoprazole (Protonix) 40 mg DAILY IV 05/07/17 09:00 06/04/17 08:59 05/09/17 08:46 Polyethylene Glycol (Miralax) 17 gm DAILYPRN PRN GT Constipation 05/10/17 01:00 06/09/17 00:59 Vancomycin HCl (Vanco rx to dose) 1 ea DAILY PRN MISC Per rx protocol 05/04/17 21:00 06/03/17 20:59 Vancomycin/Sodium Chloride 250 ml @ 166.667 mls/hr Q24H IVPB 05/08/17 06:00 05/13/17 05:59 05/10/17 05:45 DEEDEE KENDALL May 10, 2017 08:02
[2017-05-10] MEDS: Pantoprazole Inj IV SCH (09:56)
[2017-05-10] MEDS: Heparin 5000 units/ml inj SUBQ SCH ×2 (09:59→20:45)
[2017-05-10] MEDS: Meropenem 1 GM in NS 55 ML IVPB SCH ×2 (10:00→20:42)
--- NOTE | 2017-05-10 10:03 | Diagnostic Imaging Report ---
Indication: Reason For Exam: DYSPNEA Technique: XRAY Chest 1v Comparison:05/09/2017 Findings: Compared to previous study there has been partial reexpansion of the left lung. The cardiac mediastinal silhouette is unchanged. Right lung is unchanged. There is a right pleural effusion. Impression: Partial reexpansion of the left lung.
--- NOTE | 2017-05-10 11:20 | Nephrology Progress Note ---
Assessment/Plan Problem List: (1) Chronic respiratory failure (2) Azotemia (3) Proteinuria Assessment 76 y old- Admitted with fever & Pneumonia - Has chronic Respiratory failure Mild Azotemia- Proteinuria likely Diabetic Nephropathy HypoAlbuminemia, r/o Nephrotic Syndrom Anemia , etiology?? PEG Stable from renal stand Plan Plan: Pulmonary support- AntiBiotics IV iron Anemia workup: low Iron Keep BP and BS in check Urine studies DC IV fluid Subjective ROS Limited/Unobtainable: Yes Objective Objective Last 24 Hour Vital Signs Date Time Temp Pulse Resp B/P (MAP) Pulse Ox O2 Delivery O2 Flow Rate FiO2 05/10/17 09:54 66 115/63 05/10/17 09:19 64 17 35 05/10/17 08:00 97.9 66 18 115/63 100 Mechanical Ventilator 35 97.9 05/10/17 07:06 76 17 35 05/10/17 05:00 67 18 35 05/10/17 04:00 98.2 81 18 143/76 100 Mechanical Ventilator 35 98.2 05/10/17 04:00 35 05/10/17 04:00 90 05/10/17 03:26 78 17 35 05/10/17 01:13 71 17 35 05/10/17 00:00 98.1 60 20 126/55 100 Mechanical Ventilator 35 98.1 05/10/17 00:00 35 05/10/17 00:00 60 05/09/17 23:00 71 16 35 05/09/17 21:11 62 16 35 05/09/17 20:00 35 05/09/17 20:00 97.4 60 18 128/60 100 Mechanical Ventilator 35 97.4 05/09/17 20:00 58 05/09/17 19:28 61 16 35 05/09/17 17:10 61 16 35 05/09/17 16:00 98.2 70 16 133/68 100 Mechanical Ventilator 35 98.2 05/09/17 16:00 35 05/09/17 16:00 69 05/09/17 15:05 59 16 35 05/09/17 13:10 70 16 35 05/09/17 12:00 35 05/09/17 12:00 98.5 63 14 138/77 100 Mechanical Ventilator 35 98.5 05/09/17 11:46 55 05/09/17 11:27 60 16 35 Intake and Output 05/09/17 05/10/17 19:00 07:00 Intake Total 710 ml 681.667 ml Output Total 475 ml 500 ml Balance 235 ml 181.667 ml Intake Free Water 130 ml 100 ml IV Total 220 ml 221.667 ml Tube Feeding 360 ml 360 ml Output Urine Total 475 ml 500 ml # Bowel Movements 2 Laboratory Tests 05/10/17 03:30: White Blood Count 15.1H, Red Blood Count 2.65L, Hemoglobin 8.3L, Hematocrit 24.8L, Mean Corpuscular Volume 94, Mean Corpuscular Hemoglobin 31.4H, Mean Corpuscular Hemoglobin Concent 33.6, Red Cell Distribution Width 13.0, Platelet Count 403, Mean Platelet Volume 7.7, Neutrophils (%) (Auto) 69.3, Lymphocytes (% ) (Auto) 13.4L, Monocytes (%) (Auto) 9.2, Eosinophils (%) (Auto) 7.2H, Basophils (%) (Auto) 0.9, Sodium Level 141, Potassium Level 3.6, Chloride Level 108H, Carbon Dioxide Level 26, Anion Gap 7, Blood Urea Nitrogen 21H, Creatinine 0.9, Estimat Glomerular Filtration Rate , Glucose Level 100, Calcium Level 8.2L , Phosphorus Level 3.3, Magnesium Level 1.6L, Total Bilirubin 0.2, Aspartate Amino Transf (AST/SGOT) 32, Alanine Aminotransferase (ALT/SGPT) 37, Alkaline Phosphatase 179H, Total Protein 6.3L, Albumin 1.9L, Globulin 4.4, Albumin/ Globulin Ratio 0.4L Height (Feet): 4 Height (Inches): 11.00 Weight (Pounds): 119 General Appearance: no apparent distress Respiratory/Chest: decreased breath sounds Abdomen: soft Objective no change PARVIZ ALFARO May 10, 2017 11:20
--- NOTE | 2017-05-10 11:48 | Pulmonolgy Critical Care Note ---
Critical Care - Asmt/Plan Problems: (1) Acute on chronic respiratory failure (2) Collapse of left lung (3) HCAP (healthcare-associated pneumonia) (4) Diabetes mellitus (5) COPD (chronic obstructive pulmonary disease) Respiratory: monitor respiratory rate, adjust FIO2, CXR Cardiac: continue to monitor HR/BP Renal: F/U I&O, keep IV fluid Infectious Disease: check cultures, continue antibiotics Gastrointestinal: continue feedings/current rate Endocrine: monitor blood sugar, check HgA1C Neurologic: PRN Ativan Affect: PRN ativan Prophylaxis: Heparin Time Spent (Minutes): 40 Critical Care - Objective Last 24 Hour Vital Signs Date Time Temp Pulse Resp B/P (MAP) Pulse Ox O2 Delivery O2 Flow Rate FiO2 05/10/17 09:54 66 115/63 05/10/17 09:19 64 17 35 05/10/17 08:00 97.9 66 18 115/63 100 Mechanical Ventilator 35 97.9 05/10/17 07:06 76 17 35 05/10/17 05:00 67 18 35 05/10/17 04:00 98.2 81 18 143/76 100 Mechanical Ventilator 35 98.2 05/10/17 04:00 35 05/10/17 04:00 90 05/10/17 03:26 78 17 35 05/10/17 01:13 71 17 35 05/10/17 00:00 98.1 60 20 126/55 100 Mechanical Ventilator 35 98.1 05/10/17 00:00 35 05/10/17 00:00 60 05/09/17 23:00 71 16 35 05/09/17 21:11 62 16 35 05/09/17 20:00 35 05/09/17 20:00 97.4 60 18 128/60 100 Mechanical Ventilator 35 97.4 05/09/17 20:00 58 05/09/17 19:28 61 16 35 05/09/17 17:10 61 16 35 05/09/17 16:00 98.2 70 16 133/68 100 Mechanical Ventilator 35 98.2 05/09/17 16:00 35 05/09/17 16:00 69 05/09/17 15:05 59 16 35 05/09/17 13:10 70 16 35 05/09/17 12:00 35 05/09/17 12:00 98.5 63 14 138/77 100 Mechanical Ventilator 35 98.5 Accucheck: 105 Critical Care - Subjective ROS Limited/Unobtainable: No Condition: critical EKG Rhythm: Sinus Bradycardia FI02: 35 Vent Support Breath Rate: 16 Vent Support Mode: AC Vent Tidal Volume: 600 Sputum Amount: Small PEEP: 5.0 PIP: 36 Tube Feeding Amount: 30 I&O: Intake and Output 05/09/17 05/10/17 19:00 07:00 Intake Total 710 ml 681.667 ml Output Total 475 ml 500 ml Balance 235 ml 181.667 ml Intake Free Water 130 ml 100 ml IV Total 220 ml 221.667 ml Tube Feeding 360 ml 360 ml Output Urine Total 475 ml 500 ml # Bowel Movements 2 CXR: improving more Labs: Laboratory Tests Test 05/10/17 03:30 White Blood Count 15.1 K/UL (4.8-10.8) H Red Blood Count 2.65 M/UL (4.20-5.40) L Hemoglobin 8.3 G/DL (12.0-16.0) L Hematocrit 24.8 % (37.0-47.0) L Mean Corpuscular Volume 94 FL (80-99) Mean Corpuscular Hemoglobin 31.4 PG (27.0-31.0) H Mean Corpuscular Hemoglobin Concent 33.6 G/DL (32.0-36.0) Red Cell Distribution Width 13.0 % (11.6-14.8) Platelet Count 403 K/UL (150-450) Mean Platelet Volume 7.7 FL (6.5-10.1) Neutrophils (%) (Auto) 69.3 % (45.0-75.0) Lymphocytes (%) (Auto) 13.4 % (20.0-45.0) L Monocytes (%) (Auto) 9.2 % (1.0-10.0) Eosinophils (%) (Auto) 7.2 % (0.0-3.0) H Basophils (%) (Auto) 0.9 % (0.0-2.0) Sodium Level 141 MMOL/L (136-145) Potassium Level 3.6 MMOL/L (3.5-5.1) Chloride Level 108 MMOL/L (98-107) H Carbon Dioxide Level 26 MMOL/L (21-32) Anion Gap 7 mmol/L (5-15) Blood Urea Nitrogen 21 mg/dL (7-18) H Creatinine 0.9 MG/DL (0.55-1.30) Estimat Glomerular Filtration Rate mL/min (>60) Glucose Level 100 MG/DL (74-106) Calcium Level 8.2 MG/DL (8.5-10.1) L Phosphorus Level 3.3 MG/DL (2.5-4.9) Magnesium Level 1.6 MG/DL (1.8-2.4) L Total Bilirubin 0.2 MG/DL (0.2-1.0) Aspartate Amino Transf (AST/SGOT) 32 U/L (15-37) Alanine Aminotransferase (ALT/SGPT) 37 U/L (12-78) Alkaline Phosphatase 179 U/L (46-116) H Total Protein 6.3 G/DL (6.4-8.2) L Albumin 1.9 G/DL (3.4-5.0) L Globulin 4.4 g/dL Albumin/Globulin Ratio 0.4 (1.0-2.7) L YOVANNY CARRINGTON May 10, 2017 11:48
[2017-05-10 12:00] VITALS: BP 146/65
--- NOTE | 2017-05-10 12:09 | General Progress Note ---
Assessment/Plan Assessment/Plan #. Leukocytosis appears to be significant and current leukocyte count elevated with neutrophils 84% and therefore is elevated due to underlying infection. --> Currently, is on vancomycin. Broad spectrum antibiotics. Dr. Gonzalez, has evaluated the patient. --> Monitor closely. Improved from yesterday. --> Followup by ID #. Pneumonia. --> On Broad-spectrum antibiotics. --> monitor closely. #. Anemia due to underlying chronic disease. --> Anemia workup reviewed. Iron 19, TIBC 204, Folate 39.5, Vit B12 941 --> Continue to closely monitor. --> Hemoglobin goal is above 7. Does not appear to have any evidence of hemolysis. --> Does not need PRBC at this time. --> No occult blood. #. Ventilator-dependent respiratory failure. Started on antibiotic, broad spectrum by Dr. Gonzalez. #. Methicillin-resistant Staphylococcus aureus in the past. #. Transaminitis. Subjective Date patient seen: May 09, 2017 Constitutional: Denies: no symptoms, chills, diaphoresis, fever, malaise, weakness, other HEENT: Denies: no symptoms, eye pain, blurred vision, tearing, double vision, ear pain, ear discharge, nose pain, nose congestion, throat pain, throat swelling, mouth pain, mouth swelling, other Cardiovascular: Denies: no symptoms, chest pain, edema, irregular heart rate, lightheadedness, palpitations, syncope, other Respiratory: Denies: no symptoms, cough, orthopnea, shortness of breath, SOB with excertion, SOB at rest, sputum, stridor, wheezing, other Allergies: Coded Allergies: CODEINE (Unverified Allergy, Unknown, 01/10/17) PENICILLINS (Unverified Allergy, Unknown, 01/10/17) Subjective wbc continues to improved. Pt ongoing tube feeds. NAD Objective Last 24 Hour Vital Signs Date Time Temp Pulse Resp B/P (MAP) Pulse Ox O2 Delivery O2 Flow Rate FiO2 05/10/17 11:30 59 16 35 05/10/17 09:54 66 115/63 05/10/17 09:19 64 17 35 05/10/17 08:00 97.9 66 18 115/63 100 Mechanical Ventilator 35 97.9 05/10/17 07:06 76 17 35 05/10/17 05:00 67 18 35 05/10/17 04:00 98.2 81 18 143/76 100 Mechanical Ventilator 35 98.2 05/10/17 04:00 35 05/10/17 04:00 90 05/10/17 03:26 78 17 35 05/10/17 01:13 71 17 35 05/10/17 00:00 98.1 60 20 126/55 100 Mechanical Ventilator 35 98.1 05/10/17 00:00 35 05/10/17 00:00 60 05/09/17 23:00 71 16 35 05/09/17 21:11 62 16 35 05/09/17 20:00 35 05/09/17 20:00 97.4 60 18 128/60 100 Mechanical Ventilator 35 97.4 05/09/17 20:00 58 05/09/17 19:28 61 16 35 05/09/17 17:10 61 16 35 05/09/17 16:00 98.2 70 16 133/68 100 Mechanical Ventilator 35 98.2 05/09/17 16:00 35 05/09/17 16:00 69 05/09/17 15:05 59 16 35 05/09/17 13:10 70 16 35 05/09/17 12:00 35 05/09/17 12:00 98.5 63 14 138/77 100 Mechanical Ventilator 35 98.5 05/09/17 11:46 55 05/09/17 11:27 60 16 35 05/09/17 09:06 62 16 35 05/09/17 08:46 102 149/53 05/09/17 08:00 35 05/09/17 08:00 78 05/09/17 08:00 97.5 102 16 149/53 100 Mechanical Ventilator 35 97.5 05/09/17 06:35 68 16 35 05/09/17 05:06 58 16 35 05/09/17 04:00 98.1 88 16 122/79 99 Mechanical Ventilator 35 98.1 05/09/17 04:00 35 05/09/17 04:00 54 05/09/17 02:52 74 16 35 05/09/17 00:51 94 16 35 05/09/17 00:00 98.1 88 16 122/79 99 Mechanical Ventilator 35 98.1 05/09/17 00:00 84 05/09/17 00:00 35 05/08/17 23:15 81 11 35 05/08/17 21:25 70 10 35 05/08/17 20:00 71 05/08/17 20:00 97.8 90 14 138/90 99 Mechanical Ventilator 35 97.8 05/08/17 20:00 35 05/08/17 18:43 76 13 35 05/08/17 17:16 84 12 35 05/08/17 16:02 59 05/08/17 16:00 35 05/08/17 16:00 97.3 70 10 124/42 95 Mechanical Ventilator 35 97.3 05/08/17 15:20 77 12 35 05/08/17 12:55 75 13 35 Last 24 Hour Vital Signs Date Time Temp Pulse Resp B/P (MAP) Pulse Ox O2 Delivery O2 Flow Rate FiO2 05/10/17 11:30 59 16 35 05/10/17 09:54 66 115/63 05/10/17 09:19 64 17 35 05/10/17 08:00 97.9 66 18 115/63 100 Mechanical Ventilator 35 97.9 05/10/17 07:06 76 17 35 05/10/17 05:00 67 18 35 05/10/17 04:00 98.2 81 18 143/76 100 Mechanical Ventilator 35 98.2 05/10/17 04:00 35 05/10/17 04:00 90 05/10/17 03:26 78 17 35 05/10/17 01:13 71 17 35 05/10/17 00:00 98.1 60 20 126/55 100 Mechanical Ventilator 35 98.1 05/10/17 00:00 35 05/10/17 00:00 60 05/09/17 23:00 71 16 35 05/09/17 21:11 62 16 35 05/09/17 20:00 35 05/09/17 20:00 97.4 60 18 128/60 100 Mechanical Ventilator 35 97.4 05/09/17 20:00 58 05/09/17 19:28 61 16 35 05/09/17 17:10 61 16 35 05/09/17 16:00 98.2 70 16 133/68 100 Mechanical Ventilator 35 98.2 05/09/17 16:00 35 05/09/17 16:00 69 05/09/17 15:05 59 16 35 05/09/17 13:10 70 16 35 Intake and Output 05/09/17 05/10/17 19:00 07:00 Intake Total 710 ml 681.667 ml Output Total 475 ml 500 ml Balance 235 ml 181.667 ml Intake Free Water 130 ml 100 ml IV Total 220 ml 221.667 ml Tube Feeding 360 ml 360 ml Output Urine Total 475 ml 500 ml # Bowel Movements 2 Labs Test 05/07/17 19:30 05/08/17 05:30 05/09/17 03:45 05/10/17 03:30 Vancomycin Level Trough 23.8 ug/mL (5.0-12.0) White Blood Count 16.0 K/UL (4.8-10.8) 13.5 K/UL (4.8-10.8) 15.1 K/UL (4.8-10.8) Red Blood Count 2.73 M/UL (4.20-5.40) 2.73 M/UL (4.20-5.40) 2.65 M/UL (4.20-5.40) Hemoglobin 8.3 G/DL (12.0-16.0) 8.5 G/DL (12.0-16.0) 8.3 G/DL (12.0-16.0) Hematocrit 25.9 % (37.0-47.0) 25.8 % (37.0-47.0) 24.8 % (37.0-47.0) Mean Corpuscular Volume 95 FL (80-99) 94 FL (80-99) 94 FL (80-99) Mean Corpuscular Hemoglobin 30.3 PG (27.0-31.0) 31.1 PG (27.0-31.0) 31.4 PG (27.0-31.0) Mean Corpuscular Hemoglobin Concent 32.0 G/DL (32.0-36.0) 32.9 G/DL (32.0-36.0) 33.6 G/DL (32.0-36.0) Red Cell Distribution Width 12.5 % (11.6-14.8) 12.8 % (11.6-14.8) 13.0 % (11.6-14.8) Platelet Count 408 K/UL (150-450) 399 K/UL (150-450) 403 K/UL (150-450) Mean Platelet Volume 8.0 FL (6.5-10.1) 7.7 FL (6.5-10.1) 7.7 FL (6.5-10.1) Neutrophils (%) (Auto) 75.5 % (45.0-75.0) 70.8 % (45.0-75.0) 69.3 % (45.0-75.0) Lymphocytes (%) (Auto) 10.8 % (20.0-45.0) 13.8 % (20.0-45.0) 13.4 % (20.0-45.0) Monocytes (%) (Auto) 8.6 % (1.0-10.0) 9.9 % (1.0-10.0) 9.2 % (1.0-10.0) Eosinophils (%) (Auto) 4.4 % (0.0-3.0) 4.6 % (0.0-3.0) 7.2 % (0.0-3.0) Basophils (%) (Auto) 0.8 % (0.0-2.0) 0.9 % (0.0-2.0) 0.9 % (0.0-2.0) Sodium Level 143 MMOL/L (136-145) 142 MMOL/L (136-145) 141 MMOL/L (136-145) Potassium Level 4.1 MMOL/L (3.5-5.1) 3.8 MMOL/L (3.5-5.1) 3.6 MMOL/L (3.5-5.1) Chloride Level 109 MMOL/L (98-107) 109 MMOL/L (98-107) 108 MMOL/L (98-107) Carbon Dioxide Level 30 MMOL/L (21-32) 26 MMOL/L (21-32) 26 MMOL/L (21-32) Anion Gap 4 mmol/L (5-15) 7 mmol/L (5-15) 7 mmol/L (5-15) Blood Urea Nitrogen 27 mg/dL (7-18) 23 mg/dL (7-18) 21 mg/dL (7-18) Creatinine 1.0 MG/DL (0.55-1.30) 0.9 MG/DL (0.55-1.30) 0.9 MG/DL (0.55-1.30) Estimat Glomerular Filtration Rate mL/min (>60) mL/min (>60) mL/min (>60) Glucose Level 98 MG/DL (74-106) 96 MG/DL (74-106) 100 MG/DL (74-106) Calcium Level 8.4 MG/DL (8.5-10.1) 8.3 MG/DL (8.5-10.1) 8.2 MG/DL (8.5-10.1) Total Bilirubin 0.2 MG/DL (0.2-1.0) 0.2 MG/DL (0.2-1.0) 0.2 MG/DL (0.2-1.0) Aspartate Amino Transf (AST/SGOT) 23 U/L (15-37) 21 U/L (15-37) 32 U/L (15-37) Alanine Aminotransferase (ALT/SGPT) 33 U/L (12-78) 31 U/L (12-78) 37 U/L (12-78) Alkaline Phosphatase 178 U/L (46-116) 177 U/L (46-116) 179 U/L (46-116) Troponin I 0.000 ng/mL (0.000-0.056) Pro-B-Type Natriuretic Peptide 1319 pg/mL (0-125) Total Protein 6.2 G/DL (6.4-8.2) 6.2 G/DL (6.4-8.2) 6.3 G/DL (6.4-8.2) Albumin 1.7 G/DL (3.4-5.0) 1.7 G/DL (3.4-5.0) 1.9 G/DL (3.4-5.0) Globulin 4.5 g/dL 4.5 g/dL 4.4 g/dL Albumin/Globulin Ratio 0.4 (1.0-2.7) 0.4 (1.0-2.7) 0.4 (1.0-2.7) Thyroid Stimulating Hormone (TSH) 2.120 uiU/mL (0.358-3.740) Free Thyroxine 1.08 NG/DL (0.76-1.46) Phosphorus Level 2.5 MG/DL (2.5-4.9) 3.3 MG/DL (2.5-4.9) Magnesium Level 1.8 MG/DL (1.8-2.4) 1.6 MG/DL (1.8-2.4) Laboratory Tests 05/10/17 03:30: White Blood Count 15.1H, Red Blood Count 2.65L, Hemoglobin 8.3L, Hematocrit 24.8L, Mean Corpuscular Volume 94, Mean Corpuscular Hemoglobin 31.4H, Mean Corpuscular Hemoglobin Concent 33.6, Red Cell Distribution Width 13.0, Platelet Count 403, Mean Platelet Volume 7.7, Neutrophils (%) (Auto) 69.3, Lymphocytes (% ) (Auto) 13.4L, Monocytes (%) (Auto) 9.2, Eosinophils (%) (Auto) 7.2H, Basophils (%) (Auto) 0.9, Sodium Level 141, Potassium Level 3.6, Chloride Level 108H, Carbon Dioxide Level 26, Anion Gap 7, Blood Urea Nitrogen 21H, Creatinine 0.9, Estimat Glomerular Filtration Rate , Glucose Level 100, Calcium Level 8.2L , Phosphorus Level 3.3, Magnesium Level 1.6L, Total Bilirubin 0.2, Aspartate Amino Transf (AST/SGOT) 32, Alanine Aminotransferase (ALT/SGPT) 37, Alkaline Phosphatase 179H, Total Protein 6.3L, Albumin 1.9L, Globulin 4.4, Albumin/ Globulin Ratio 0.4L Height (Feet): 4 Height (Inches): 11.00 Weight (Pounds): 119 Reinier Lou May 10, 2017 12:09
--- NOTE | 2017-05-10 13:58 | Cardiac Electrophysiology PN ---
Assessment/Plan Assessment/Plan 1. Transient bradycardia only when sleeping. Echocardiogram pending. No NV. T4 normal 2. Hypertension, on Norvasc 2.5 mg daily. 3. Sepsis and fever due to PNA with White count 26,000, on IV antibiotics 4. Diabetes. 5. Ventilator-dependent respiratory failure, status post tracheostomy. 6. Dysphagia, status post percutaneous endoscopic gastrostomy placement. Dw RN Re order Echo Subjective Subjective Gets occasional Sinus unique to 40s when sleeping. Asymptomatic. BP stable. Objective Last 24 Hour Vital Signs Date Time Temp Pulse Resp B/P (MAP) Pulse Ox O2 Delivery O2 Flow Rate FiO2 05/10/17 13:13 55 16 35 05/10/17 12:14 35 05/10/17 12:00 97.7 84 16 146/65 100 Mechanical Ventilator 35 97.7 05/10/17 11:45 77 05/10/17 11:30 59 16 35 05/10/17 09:54 66 115/63 05/10/17 09:19 64 17 35 05/10/17 08:10 68 05/10/17 08:00 97.9 66 18 115/63 100 Mechanical Ventilator 35 97.9 05/10/17 08:00 35 05/10/17 07:06 76 17 35 05/10/17 05:00 67 18 35 05/10/17 04:00 98.2 81 18 143/76 100 Mechanical Ventilator 35 98.2 05/10/17 04:00 35 05/10/17 04:00 90 05/10/17 03:26 78 17 35 05/10/17 01:13 71 17 35 05/10/17 00:00 98.1 60 20 126/55 100 Mechanical Ventilator 35 98.1 05/10/17 00:00 35 05/10/17 00:00 60 05/09/17 23:00 71 16 35 05/09/17 21:11 62 16 35 05/09/17 20:00 35 05/09/17 20:00 97.4 60 18 128/60 100 Mechanical Ventilator 35 97.4 05/09/17 20:00 58 05/09/17 19:28 61 16 35 05/09/17 17:10 61 16 35 05/09/17 16:00 98.2 70 16 133/68 100 Mechanical Ventilator 35 98.2 05/09/17 16:00 35 05/09/17 16:00 69 05/09/17 15:05 59 16 35 Intake and Output 05/09/17 05/10/17 19:00 07:00 Intake Total 710 ml 681.667 ml Output Total 475 ml 500 ml Balance 235 ml 181.667 ml Intake Free Water 130 ml 100 ml IV Total 220 ml 221.667 ml Tube Feeding 360 ml 360 ml Output Urine Total 475 ml 500 ml # Bowel Movements 2 Laboratory Tests Test 05/10/17 03:30 White Blood Count 15.1 K/UL (4.8-10.8) H Red Blood Count 2.65 M/UL (4.20-5.40) L Hemoglobin 8.3 G/DL (12.0-16.0) L Hematocrit 24.8 % (37.0-47.0) L Mean Corpuscular Volume 94 FL (80-99) Mean Corpuscular Hemoglobin 31.4 PG (27.0-31.0) H Mean Corpuscular Hemoglobin Concent 33.6 G/DL (32.0-36.0) Red Cell Distribution Width 13.0 % (11.6-14.8) Platelet Count 403 K/UL (150-450) Mean Platelet Volume 7.7 FL (6.5-10.1) Neutrophils (%) (Auto) 69.3 % (45.0-75.0) Lymphocytes (%) (Auto) 13.4 % (20.0-45.0) L Monocytes (%) (Auto) 9.2 % (1.0-10.0) Eosinophils (%) (Auto) 7.2 % (0.0-3.0) H Basophils (%) (Auto) 0.9 % (0.0-2.0) Sodium Level 141 MMOL/L (136-145) Potassium Level 3.6 MMOL/L (3.5-5.1) Chloride Level 108 MMOL/L (98-107) H Carbon Dioxide Level 26 MMOL/L (21-32) Anion Gap 7 mmol/L (5-15) Blood Urea Nitrogen 21 mg/dL (7-18) H Creatinine 0.9 MG/DL (0.55-1.30) Estimat Glomerular Filtration Rate mL/min (>60) Glucose Level 100 MG/DL (74-106) Calcium Level 8.2 MG/DL (8.5-10.1) L Phosphorus Level 3.3 MG/DL (2.5-4.9) Magnesium Level 1.6 MG/DL (1.8-2.4) L Total Bilirubin 0.2 MG/DL (0.2-1.0) Aspartate Amino Transf (AST/SGOT) 32 U/L (15-37) Alanine Aminotransferase (ALT/SGPT) 37 U/L (12-78) Alkaline Phosphatase 179 U/L (46-116) H Total Protein 6.3 G/DL (6.4-8.2) L Albumin 1.9 G/DL (3.4-5.0) L Globulin 4.4 g/dL Albumin/Globulin Ratio 0.4 (1.0-2.7) L Objective HEAD AND NECK: Status post tracheostomy. LUNGS: Coarse rhonchi. CARDIOVASCULAR: Regular S1 and S2 with no gallop. ABDOMEN: Status post G-tube. EXTREMITIES: There is no pitting edema. SUNDEEP NOBLE May 10, 2017 13:58
[2017-05-10 16:00] VITALS: BP 146/65
[2017-05-10] MEDS: Dyna-Hex 2% Top Sol 2oz TOPIC SCH (19:57)
[2017-05-10 20:00] VITALS: BP 141/60
--- NOTE | 2017-05-10 20:15 | General Progress Note ---
Assessment/Plan Problem List: (1) Fever ICD Codes: R50.9 - Fever, unspecified SNOMED: 077689610 Qualifiers: Qualified Codes: R50.9 - Fever, unspecified (2) Chronic respiratory failure ICD Codes: J96.10 - Chronic respiratory failure, unspecified whether with hypoxia or hypercapnia SNOMED: 10152741 Qualifiers: Qualified Codes: J96.10 - Chronic respiratory failure, unspecified whether with hypoxia or hypercapnia (3) Diabetes mellitus ICD Codes: E11.9 - Type 2 diabetes mellitus without complications SNOMED: 84086669 (4) Acute on chronic respiratory failure ICD Codes: J96.20 - Acute and chronic respiratory failure, unspecified whether with hypoxia or hypercapnia SNOMED: 67145530 (5) Sepsis ICD Codes: A41.9 - Sepsis, unspecified organism SNOMED: 15760676 Status: progressing Assessment/Plan trach and peg lung collapse improving sepsis improving reviewed chart and labs Subjective ROS Limited/Unobtainable: Yes Allergies: Coded Allergies: CODEINE (Unverified Allergy, Unknown, 01/10/17) PENICILLINS (Unverified Allergy, Unknown, 01/10/17) Objective Last 24 Hour Vital Signs Date Time Temp Pulse Resp B/P (MAP) Pulse Ox O2 Delivery O2 Flow Rate FiO2 05/10/17 20:00 97.9 79 16 141/60 100 Mechanical Ventilator 35 97.9 05/10/17 20:00 35 05/10/17 19:20 75 15 35 05/10/17 16:37 76 17 35 05/10/17 16:00 35 05/10/17 16:00 97.7 84 16 146/65 100 Mechanical Ventilator 35 97.7 05/10/17 16:00 61 05/10/17 15:03 87 16 35 05/10/17 13:13 55 16 35 05/10/17 12:14 35 05/10/17 12:00 97.7 84 16 146/65 100 Mechanical Ventilator 35 97.7 05/10/17 11:45 77 05/10/17 11:30 59 16 35 05/10/17 09:54 66 115/63 05/10/17 09:19 64 17 35 05/10/17 08:10 68 05/10/17 08:00 97.9 66 18 115/63 100 Mechanical Ventilator 35 97.9 05/10/17 08:00 35 05/10/17 07:06 76 17 35 05/10/17 05:00 67 18 35 05/10/17 04:00 98.2 81 18 143/76 100 Mechanical Ventilator 35 98.2 05/10/17 04:00 35 05/10/17 04:00 90 05/10/17 03:26 78 17 35 05/10/17 01:13 71 17 35 05/10/17 00:00 98.1 60 20 126/55 100 Mechanical Ventilator 35 98.1 05/10/17 00:00 35 05/10/17 00:00 60 05/09/17 23:00 71 16 35 05/09/17 21:11 62 16 35 Intake and Output 05/09/17 05/10/17 19:00 07:00 Intake Total 710 ml 681.667 ml Output Total 475 ml 500 ml Balance 235 ml 181.667 ml Intake Free Water 130 ml 100 ml IV Total 220 ml 221.667 ml Tube Feeding 360 ml 360 ml Output Urine Total 475 ml 500 ml # Bowel Movements 2 Laboratory Tests 05/10/17 03:30: White Blood Count 15.1H, Red Blood Count 2.65L, Hemoglobin 8.3L, Hematocrit 24.8L, Mean Corpuscular Volume 94, Mean Corpuscular Hemoglobin 31.4H, Mean Corpuscular Hemoglobin Concent 33.6, Red Cell Distribution Width 13.0, Platelet Count 403, Mean Platelet Volume 7.7, Neutrophils (%) (Auto) 69.3, Lymphocytes (% ) (Auto) 13.4L, Monocytes (%) (Auto) 9.2, Eosinophils (%) (Auto) 7.2H, Basophils (%) (Auto) 0.9, Sodium Level 141, Potassium Level 3.6, Chloride Level 108H, Carbon Dioxide Level 26, Anion Gap 7, Blood Urea Nitrogen 21H, Creatinine 0.9, Estimat Glomerular Filtration Rate , Glucose Level 100, Calcium Level 8.2L , Phosphorus Level 3.3, Magnesium Level 1.6L, Total Bilirubin 0.2, Aspartate Amino Transf (AST/SGOT) 32, Alanine Aminotransferase (ALT/SGPT) 37, Alkaline Phosphatase 179H, Total Protein 6.3L, Albumin 1.9L, Globulin 4.4, Albumin/ Globulin Ratio 0.4L Height (Feet): 4 Height (Inches): 11.00 Weight (Pounds): 119 General Appearance: confused Abdomen: soft Fernandez Gomez MD May 10, 2017 20:15
--- NOTE | 2017-05-10 23:06 | General Progress Note ---
Assessment/Plan Assessment/Plan #. Leukocytosis appears to be significant and current leukocyte count elevated with neutrophils 84% and therefore is elevated due to underlying infection. --> Currently, is on vancomycin. Broad spectrum antibiotics. Dr. Gonzalez, has evaluated the patient. --> Monitor closely. Improved from yesterday. --> Followup by ID #. Pneumonia. --> On Broad-spectrum antibiotics. --> monitor closely. #. Anemia due to underlying chronic disease. --> Anemia workup reviewed. Iron 19, TIBC 204, Folate 39.5, Vit B12 941 --> Continue to closely monitor. --> Hemoglobin goal is above 7. Does not appear to have any evidence of hemolysis. --> Does not need PRBC at this time. --> No occult blood. #. Ventilator-dependent respiratory failure. Started on antibiotic, broad spectrum by Dr. Gonzalez. #. Methicillin-resistant Staphylococcus aureus in the past. #. Transaminitis. Subjective Date patient seen: May 10, 2017 Constitutional: Denies: no symptoms, chills, diaphoresis, fever, malaise, weakness, other HEENT: Denies: no symptoms, eye pain, blurred vision, tearing, double vision, ear pain, ear discharge, nose pain, nose congestion, throat pain, throat swelling, mouth pain, mouth swelling, other Cardiovascular: Denies: no symptoms, chest pain, edema, irregular heart rate, lightheadedness, palpitations, syncope, other Respiratory: Denies: no symptoms, cough, orthopnea, shortness of breath, SOB with excertion, SOB at rest, sputum, stridor, wheezing, other Gastrointestinal/Abdominal: Denies: no symptoms, abdomen distended, abdominal pain, black stools, tarry stools, blood in stool, constipated, diarrhea, difficulty swallowing, nausea, poor appetite, poor fluid intake, rectal bleeding , vomiting, other Genitourinary: Denies: no symptoms, burning, discharge, frequency, flank pain, hematuria, incontinence, pain, urgency, other Hematologic/Lymphatic: Reports: anemia Allergies: Coded Allergies: CODEINE (Unverified Allergy, Unknown, 01/10/17) PENICILLINS (Unverified Allergy, Unknown, 01/10/17) Subjective On vent/trach. No acute distress. Leukocytosis. Objective Last 24 Hour Vital Signs Date Time Temp Pulse Resp B/P (MAP) Pulse Ox O2 Delivery O2 Flow Rate FiO2 05/10/17 21:12 88 19 35 05/10/17 20:00 58 05/10/17 20:00 97.9 79 16 141/60 100 Mechanical Ventilator 35 97.9 05/10/17 20:00 35 05/10/17 19:20 75 15 35 05/10/17 16:37 76 17 35 05/10/17 16:00 35 05/10/17 16:00 97.7 84 16 146/65 100 Mechanical Ventilator 35 97.7 05/10/17 16:00 61 05/10/17 15:03 87 16 35 05/10/17 13:13 55 16 35 05/10/17 12:14 35 05/10/17 12:00 97.7 84 16 146/65 100 Mechanical Ventilator 35 97.7 05/10/17 11:45 77 05/10/17 11:30 59 16 35 05/10/17 09:54 66 115/63 05/10/17 09:19 64 17 35 05/10/17 08:10 68 05/10/17 08:00 97.9 66 18 115/63 100 Mechanical Ventilator 35 97.9 05/10/17 08:00 35 05/10/17 07:06 76 17 35 05/10/17 05:00 67 18 35 05/10/17 04:00 98.2 81 18 143/76 100 Mechanical Ventilator 35 98.2 05/10/17 04:00 35 05/10/17 04:00 90 05/10/17 03:26 78 17 35 05/10/17 01:13 71 17 35 05/10/17 00:00 98.1 60 20 126/55 100 Mechanical Ventilator 35 98.1 05/10/17 00:00 35 05/10/17 00:00 60 Intake and Output 05/09/17 05/10/17 19:00 07:00 Intake Total 710 ml 681.667 ml Output Total 475 ml 500 ml Balance 235 ml 181.667 ml Intake Free Water 130 ml 100 ml IV Total 220 ml 221.667 ml Tube Feeding 360 ml 360 ml Output Urine Total 475 ml 500 ml # Bowel Movements 2 Laboratory Tests 05/10/17 03:30: White Blood Count 15.1H, Red Blood Count 2.65L, Hemoglobin 8.3L, Hematocrit 24.8L, Mean Corpuscular Volume 94, Mean Corpuscular Hemoglobin 31.4H, Mean Corpuscular Hemoglobin Concent 33.6, Red Cell Distribution Width 13.0, Platelet Count 403, Mean Platelet Volume 7.7, Neutrophils (%) (Auto) 69.3, Lymphocytes (% ) (Auto) 13.4L, Monocytes (%) (Auto) 9.2, Eosinophils (%) (Auto) 7.2H, Basophils (%) (Auto) 0.9, Sodium Level 141, Potassium Level 3.6, Chloride Level 108H, Carbon Dioxide Level 26, Anion Gap 7, Blood Urea Nitrogen 21H, Creatinine 0.9, Estimat Glomerular Filtration Rate , Glucose Level 100, Calcium Level 8.2L , Phosphorus Level 3.3, Magnesium Level 1.6L, Total Bilirubin 0.2, Aspartate Amino Transf (AST/SGOT) 32, Alanine Aminotransferase (ALT/SGPT) 37, Alkaline Phosphatase 179H, Total Protein 6.3L, Albumin 1.9L, Globulin 4.4, Albumin/ Globulin Ratio 0.4L Height (Feet): 4 Height (Inches): 11.00 Weight (Pounds): 119 General Appearance: no apparent distress EENT: normal ENT inspection Neck: supple Respiratory/Chest: decreased breath sounds Abdomen: non tender, soft Reinier Lou May 10, 2017 23:06
[2017-05-11] VITALS: BP 129/61
[2017-05-11 04:00] VITALS: BP 132/62
[2017-05-11] MEDS: NovoLOG Insulin Flexpen SUBQ SCH ×4 (05:56→18:22)
[2017-05-11 06:38] LABS: EOSINOPHILS % (AUTO) 8.9 % (0.0-3.0); HEMATOCRIT 24.8 % (37.0-47.0); HEMOGLOBIN 8.2 G/DL (12.0-16.0); MEAN CORPUSCULAR VOLUME 93 FL (80-99); MONOCYTES % (AUTO) 10.7 % (1.0-10.0); NEUTROPHILS % (AUTO) 65.4 % (45.0-75.0); PLATELET COUNT 398 K/UL (150-450); RED BLOOD COUNT 2.67 M/UL (4.20-5.40); RED CELL DISTRIBUTION WIDTH 13.3 % (11.6-14.8); WHITE BLOOD COUNT 10.8 K/UL (4.8-10.8)
[2017-05-11 06:50] LABS: ALANINE AMINOTRANSFERASE 34 U/L (12-78); ALBUMIN 1.8 G/DL (3.4-5.0); ALBUMIN/GLOBULIN RATIO 0.4 (1.0-2.7); ALKALINE PHOSPHATASE 174 U/L (46-116); ANION GAP 9 mmol/L (5-15); ASPARTATE AMINO TRANSFERASE 30 U/L (15-37); BILIRUBIN,TOTAL 0.2 MG/DL (0.2-1.0); BLOOD UREA NITROGEN 17 mg/dL (7-18); CALCIUM 8.3 MG/DL (8.5-10.1); CARBON DIOXIDE 24 MMOL/L (21-32); CHLORIDE 108 MMOL/L (98-107); CREATININE 0.9 MG/DL (0.55-1.30); PHOSPHORUS 3.9 MG/DL (2.5-4.9); POTASSIUM 3.6 MMOL/L (3.5-5.1); SODIUM 141 MMOL/L (136-145)
[2017-05-11 08:00] VITALS: BP 116/58
[2017-05-11] MEDS: Pantoprazole Inj IV SCH (08:17)
[2017-05-11] MEDS: Meropenem 1 GM in NS 55 ML IVPB SCH ×2 (08:17→21:01)
[2017-05-11] MEDS: Heparin 5000 units/ml inj SUBQ SCH ×2 (08:19→21:03)
--- NOTE | 2017-05-11 10:39 | Infectious Diseases Prog Note ---
Assessment/Plan Assessment/Plan A; Pneumonia with Providencia & Morganella VDRF COPD Anemia Penicillin allergy P; continue Meropenem Subjective ROS Limited/Unobtainable: Yes Allergies: Coded Allergies: CODEINE (Unverified Allergy, Unknown, 01/10/17) PENICILLINS (Unverified Allergy, Unknown, 01/10/17) Objective Vital Signs Last 24 Hour Vital Signs Date Time Temp Pulse Resp B/P (MAP) Pulse Ox O2 Delivery O2 Flow Rate FiO2 05/11/17 08:56 76 17 35 05/11/17 08:16 70 132/62 05/11/17 08:00 97.3 68 16 116/58 97 Mechanical Ventilator 35 97.3 05/11/17 08:00 35 05/11/17 07:27 67 05/11/17 07:09 70 20 35 05/11/17 05:26 84 20 35 05/11/17 04:00 35 05/11/17 04:00 61 05/11/17 04:00 97.8 60 16 132/62 100 Mechanical Ventilator 35 97.8 05/11/17 03:26 76 17 35 05/11/17 00:41 75 17 35 05/11/17 00:00 98.1 71 16 129/61 100 Mechanical Ventilator 35 98.1 05/11/17 00:00 83 05/10/17 23:48 74 17 35 05/10/17 21:12 88 19 35 05/10/17 20:00 58 05/10/17 20:00 97.9 79 16 141/60 100 Mechanical Ventilator 35 97.9 05/10/17 20:00 35 05/10/17 19:20 75 15 35 05/10/17 16:37 76 17 35 05/10/17 16:00 35 05/10/17 16:00 97.7 84 16 146/65 100 Mechanical Ventilator 35 97.7 05/10/17 16:00 61 05/10/17 15:03 87 16 35 05/10/17 13:13 55 16 35 05/10/17 12:14 35 05/10/17 12:00 97.7 84 16 146/65 100 Mechanical Ventilator 35 97.7 05/10/17 11:45 77 05/10/17 11:30 59 16 35 Height (Feet): 4 Height (Inches): 11.00 Weight (Pounds): 118 General Appearance: no acute distress HEENT: status post trach Respiratory/Chest: other - on ventilator, coarse sounds Cardiovascular: normal rate Abdomen: soft, non tender, other - GT feeding Extremities: no edema Neurologic/Psychiatric: alert, responsive Musculoskeletal: atrophy Laboratory Tests Test 05/11/17 03:50 White Blood Count 10.8 K/UL (4.8-10.8) Red Blood Count 2.67 M/UL (4.20-5.40) L Hemoglobin 8.2 G/DL (12.0-16.0) L Hematocrit 24.8 % (37.0-47.0) L Mean Corpuscular Volume 93 FL (80-99) Mean Corpuscular Hemoglobin 31.0 PG (27.0-31.0) Mean Corpuscular Hemoglobin Concent 33.2 G/DL (32.0-36.0) Red Cell Distribution Width 13.3 % (11.6-14.8) Platelet Count 398 K/UL (150-450) Mean Platelet Volume 7.7 FL (6.5-10.1) Neutrophils (%) (Auto) 65.4 % (45.0-75.0) Lymphocytes (%) (Auto) 14.0 % (20.0-45.0) L Monocytes (%) (Auto) 10.7 % (1.0-10.0) H Eosinophils (%) (Auto) 8.9 % (0.0-3.0) H Basophils (%) (Auto) 1.0 % (0.0-2.0) Sodium Level 141 MMOL/L (136-145) Potassium Level 3.6 MMOL/L (3.5-5.1) Chloride Level 108 MMOL/L (98-107) H Carbon Dioxide Level 24 MMOL/L (21-32) Anion Gap 9 mmol/L (5-15) Blood Urea Nitrogen 17 mg/dL (7-18) Creatinine 0.9 MG/DL (0.55-1.30) Estimat Glomerular Filtration Rate mL/min (>60) Glucose Level 94 MG/DL (74-106) Calcium Level 8.3 MG/DL (8.5-10.1) L Phosphorus Level 3.9 MG/DL (2.5-4.9) Magnesium Level 1.7 MG/DL (1.8-2.4) L Total Bilirubin 0.2 MG/DL (0.2-1.0) Aspartate Amino Transf (AST/SGOT) 30 U/L (15-37) Alanine Aminotransferase (ALT/SGPT) 34 U/L (12-78) Alkaline Phosphatase 174 U/L (46-116) H Total Protein 6.3 G/DL (6.4-8.2) L Albumin 1.8 G/DL (3.4-5.0) L Globulin 4.5 g/dL Albumin/Globulin Ratio 0.4 (1.0-2.7) L Current Medications Medications (Trade) Dose Ordered Sig/Sky Route PRN Reason Start Time Stop Time Status Last Admin Dose Admin Acetaminophen (Tylenol) 650 mg Q4HR PRN GT Mild Pain/Temp > 100.5 05/10/17 01:00 06/09/17 00:59 Amlodipine Besylate (Norvasc) 2.5 mg DAILY GT 05/05/17 09:00 06/04/17 08:59 05/11/17 08:16 Chlorhexidine Gluconate (Myra-Hex 2%) 1 applic DAILY@2000 TOPIC 05/05/17 20:00 06/04/17 19:59 05/10/17 19:57 Dextrose (Dextrose 50%) STAT PRN IV Hypoglycemia 05/05/17 16:00 06/04/17 15:59 Heparin Sodium (Porcine) (Heparin 5000 units/ml) 5,000 units EVERY 12 HOURS SUBQ 05/04/17 21:00 06/03/17 20:59 05/11/17 08:19 Insulin Aspart (NovoLOG) EVERY 6 HOURS SUBQ 05/05/17 18:00 06/04/17 16:29 05/11/17 05:56 Lorazepam (Ativan 2mg/ml 1ml) 2 mg Q2H PRN IV For Anxiety 05/04/17 20:15 05/11/17 20:14 Meropenem 1 gm/ Sodium Chloride 55 ml @ 110 mls/hr Q12HR IVPB 05/10/17 10:00 05/15/17 09:59 05/11/17 08:17 Ondansetron HCl (Zofran) 4 mg Q6H PRN IVP Nausea & Vomiting 05/04/17 20:15 06/03/17 20:14 Pantoprazole (Protonix) 40 mg DAILY IV 05/07/17 09:00 06/04/17 08:59 05/11/17 08:17 Polyethylene Glycol (Miralax) 17 gm DAILYPRN PRN GT Constipation 05/10/17 01:00 06/09/17 00:59 DEEDEE KENDALL May 11, 2017 10:39
--- NOTE | 2017-05-11 11:21 | Nephrology Progress Note ---
Assessment/Plan Problem List: (1) Chronic respiratory failure (2) Azotemia (3) Proteinuria Assessment 76 y old- Admitted with fever & Pneumonia - Has chronic Respiratory failure Mild Azotemia- Proteinuria likely Diabetic Nephropathy HypoAlbuminemia, r/o Nephrotic Syndrom Anemia , etiology?? PEG Stable from renal stand Plan Plan: Pulmonary support- AntiBiotics IV iron Anemia workup: low Iron Keep BP and BS in check Urine studies DC IV fluid Subjective ROS Limited/Unobtainable: No Objective Objective Last 24 Hour Vital Signs Date Time Temp Pulse Resp B/P (MAP) Pulse Ox O2 Delivery O2 Flow Rate FiO2 05/11/17 08:56 76 17 35 05/11/17 08:16 70 132/62 05/11/17 08:00 97.3 68 16 116/58 97 Mechanical Ventilator 35 97.3 05/11/17 08:00 35 05/11/17 07:27 67 05/11/17 07:09 70 20 35 05/11/17 05:26 84 20 35 05/11/17 04:00 35 05/11/17 04:00 61 05/11/17 04:00 97.8 60 16 132/62 100 Mechanical Ventilator 35 97.8 05/11/17 03:26 76 17 35 05/11/17 00:41 75 17 35 05/11/17 00:00 98.1 71 16 129/61 100 Mechanical Ventilator 35 98.1 05/11/17 00:00 83 05/10/17 23:48 74 17 35 05/10/17 21:12 88 19 35 05/10/17 20:00 58 05/10/17 20:00 97.9 79 16 141/60 100 Mechanical Ventilator 35 97.9 05/10/17 20:00 35 05/10/17 19:20 75 15 35 05/10/17 16:37 76 17 35 05/10/17 16:00 35 05/10/17 16:00 97.7 84 16 146/65 100 Mechanical Ventilator 35 97.7 05/10/17 16:00 61 05/10/17 15:03 87 16 35 05/10/17 13:13 55 16 35 05/10/17 12:14 35 05/10/17 12:00 97.7 84 16 146/65 100 Mechanical Ventilator 35 97.7 05/10/17 11:45 77 05/10/17 11:30 59 16 35 Intake and Output 05/10/17 05/11/17 19:00 07:00 Intake Total 703.333 ml 515 ml Output Total 725 ml 650 ml Balance -21.667 ml -135 ml Intake Free Water 150 ml 100 ml IV Total 193.333 ml 55 ml Tube Feeding 360 ml 360 ml Output Urine Total 725 ml 650 ml # Bowel Movements 4 3 Laboratory Tests 05/11/17 03:50: White Blood Count 10.8, Red Blood Count 2.67L, Hemoglobin 8.2L, Hematocrit 24.8L , Mean Corpuscular Volume 93, Mean Corpuscular Hemoglobin 31.0, Mean Corpuscular Hemoglobin Concent 33.2, Red Cell Distribution Width 13.3, Platelet Count 398, Mean Platelet Volume 7.7, Neutrophils (%) (Auto) 65.4, Lymphocytes (% ) (Auto) 14.0L, Monocytes (%) (Auto) 10.7H, Eosinophils (%) (Auto) 8.9H, Basophils (%) (Auto) 1.0, Sodium Level 141, Potassium Level 3.6, Chloride Level 108H, Carbon Dioxide Level 24, Anion Gap 9, Blood Urea Nitrogen 17, Creatinine 0.9, Estimat Glomerular Filtration Rate , Glucose Level 94, Calcium Level 8.3L, Phosphorus Level 3.9, Magnesium Level 1.7L, Total Bilirubin 0.2, Aspartate Amino Transf (AST/SGOT) 30, Alanine Aminotransferase (ALT/SGPT) 34, Alkaline Phosphatase 174H, Total Protein 6.3L, Albumin 1.8L, Globulin 4.5, Albumin/ Globulin Ratio 0.4L Height (Feet): 4 Height (Inches): 11.00 Weight (Pounds): 118 General Appearance: no apparent distress Cardiovascular: normal rate Respiratory/Chest: decreased breath sounds Abdomen: soft Objective no change PARVIZ ALFARO May 11, 2017 11:21
--- NOTE | 2017-05-11 11:42 | Pulmonolgy Critical Care Note ---
Critical Care - Asmt/Plan Problems: (1) Acute on chronic respiratory failure (2) Collapse of left lung (3) HCAP (healthcare-associated pneumonia) (4) Diabetes mellitus (5) COPD (chronic obstructive pulmonary disease) Respiratory: monitor respiratory rate, adjust FIO2 Cardiac: continue to monitor HR/BP Renal: F/U I&O, keep IV fluid Infectious Disease: check cultures Gastrointestinal: continue feedings/current rate Endocrine: monitor blood sugar, check HgA1C, continue sliding scale insulin Hematologic: monitor H/H, transfuse if hgb<8.5 Neurologic: PRN Ativan, PRN Morphine, keep patient comfortable Affect: PRN ativan Notes Reviewed: federal mediator, renal Discussed with: nurses, consultants, 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 - Objective Last 24 Hour Vital Signs Date Time Temp Pulse Resp B/P (MAP) Pulse Ox O2 Delivery O2 Flow Rate FiO2 05/11/17 11:27 77 17 35 05/11/17 08:56 76 17 35 05/11/17 08:16 70 132/62 05/11/17 08:00 97.3 68 16 116/58 97 Mechanical Ventilator 35 97.3 05/11/17 08:00 35 05/11/17 07:27 67 05/11/17 07:09 70 20 35 05/11/17 05:26 84 20 35 05/11/17 04:00 35 05/11/17 04:00 61 05/11/17 04:00 97.8 60 16 132/62 100 Mechanical Ventilator 35 97.8 05/11/17 03:26 76 17 35 05/11/17 00:41 75 17 35 05/11/17 00:00 98.1 71 16 129/61 100 Mechanical Ventilator 35 98.1 05/11/17 00:00 83 05/10/17 23:48 74 17 35 05/10/17 21:12 88 19 35 05/10/17 20:00 58 05/10/17 20:00 97.9 79 16 141/60 100 Mechanical Ventilator 35 97.9 05/10/17 20:00 35 05/10/17 19:20 75 15 35 05/10/17 16:37 76 17 35 05/10/17 16:00 35 05/10/17 16:00 97.7 84 16 146/65 100 Mechanical Ventilator 35 97.7 2/25/18 16:00 61 05/10/17 15:03 87 16 35 05/10/17 13:13 55 16 35 05/10/17 12:14 35 05/10/17 12:00 97.7 84 16 146/65 100 Mechanical Ventilator 35 97.7 05/10/17 11:45 77 Status: awake Condition: critical Neck: full ROM Lungs: clear Heart: regular Abdomen: non-tender, feeding tube Extremities: edema Decubiti: location Accucheck: 113 Critical Care - Subjective ROS Limited/Unobtainable: No EKG Rhythm: Sinus Rhythm FI02: 35 Vent Support Breath Rate: 16 Vent Support Mode: AC Vent Tidal Volume: 600 Sputum Amount: Small PEEP: 5.0 PIP: 26 Tube Feeding Amount: 30 I&O: Intake and Output 05/10/17 05/11/17 19:00 07:00 Intake Total 703.333 ml 515 ml Output Total 725 ml 650 ml Balance -21.667 ml -135 ml Intake Free Water 150 ml 100 ml IV Total 193.333 ml 55 ml Tube Feeding 360 ml 360 ml Output Urine Total 725 ml 650 ml # Bowel Movements 4 3 CXR: better Labs: Laboratory Tests Test 05/11/17 03:50 White Blood Count 10.8 K/UL (4.8-10.8) Red Blood Count 2.67 M/UL (4.20-5.40) L Hemoglobin 8.2 G/DL (12.0-16.0) L Hematocrit 24.8 % (37.0-47.0) L Mean Corpuscular Volume 93 FL (80-99) Mean Corpuscular Hemoglobin 31.0 PG (27.0-31.0) Mean Corpuscular Hemoglobin Concent 33.2 G/DL (32.0-36.0) Red Cell Distribution Width 13.3 % (11.6-14.8) Platelet Count 398 K/UL (150-450) Mean Platelet Volume 7.7 FL (6.5-10.1) Neutrophils (%) (Auto) 65.4 % (45.0-75.0) Lymphocytes (%) (Auto) 14.0 % (20.0-45.0) L Monocytes (%) (Auto) 10.7 % (1.0-10.0) H Eosinophils (%) (Auto) 8.9 % (0.0-3.0) H Basophils (%) (Auto) 1.0 % (0.0-2.0) Sodium Level 141 MMOL/L (136-145) Potassium Level 3.6 MMOL/L (3.5-5.1) Chloride Level 108 MMOL/L (98-107) H Carbon Dioxide Level 24 MMOL/L (21-32) Anion Gap 9 mmol/L (5-15) Blood Urea Nitrogen 17 mg/dL (7-18) Creatinine 0.9 MG/DL (0.55-1.30) Estimat Glomerular Filtration Rate mL/min (>60) Glucose Level 94 MG/DL (74-106) Calcium Level 8.3 MG/DL (8.5-10.1) L Phosphorus Level 3.9 MG/DL (2.5-4.9) Magnesium Level 1.7 MG/DL (1.8-2.4) L Total Bilirubin 0.2 MG/DL (0.2-1.0) Aspartate Amino Transf (AST/SGOT) 30 U/L (15-37) Alanine Aminotransferase (ALT/SGPT) 34 U/L (12-78) Alkaline Phosphatase 174 U/L (46-116) H Total Protein 6.3 G/DL (6.4-8.2) L Albumin 1.8 G/DL (3.4-5.0) L Globulin 4.5 g/dL Albumin/Globulin Ratio 0.4 (1.0-2.7) L YOVANNY CARRINGTON May 11, 2017 11:42
[2017-05-11 12:00] VITALS: BP 134/73
--- NOTE | 2017-05-11 12:57 | Diagnostic Imaging Report ---
Indication: Dyspnea Comparison: 05/10/2017 A single view chest radiograph was obtained. Findings: Interstitial edema has improved since the last examination. There is suspicion of bilateral effusions. Tracheostomy noted. Superimposed pneumonia not excluded. IMPRESSION: Improved CHF/interstitial edema. Residual densities noted. Superimposed pneumonia not excluded. Suspect bilateral pleural effusion
--- NOTE | 2017-05-11 13:30 | Cardiac Electrophysiology PN ---
Assessment/Plan Assessment/Plan 1. Transient bradycardia only when sleeping. Echocardiogram EF 65% No OK. T4 normal Keep off MAHMOOD and AVN blockers 2. Hypertension, on Norvasc 2.5 mg daily. 3. Sepsis and fever due to PNA with White count 26,000, on IV antibiotics 4. Diabetes. 5. Ventilator-dependent respiratory failure, status post tracheostomy. 6. Dysphagia, status post percutaneous endoscopic gastrostomy placement. Dw RN Subjective Subjective Still occasional sinus unique to 40s when sleeping. BP stable. Objective Last 24 Hour Vital Signs Date Time Temp Pulse Resp B/P (MAP) Pulse Ox O2 Delivery O2 Flow Rate FiO2 05/11/17 12:35 67 17 35 05/11/17 12:00 97.5 98 18 134/73 98 Mechanical Ventilator 35 97.5 05/11/17 12:00 35 05/11/17 11:35 74 05/11/17 11:27 77 17 35 05/11/17 08:56 76 17 35 05/11/17 08:16 70 132/62 05/11/17 08:00 97.3 68 16 116/58 97 Mechanical Ventilator 35 97.3 05/11/17 08:00 35 05/11/17 07:27 67 05/11/17 07:09 70 20 35 05/11/17 05:26 84 20 35 05/11/17 04:00 35 05/11/17 04:00 61 05/11/17 04:00 97.8 60 16 132/62 100 Mechanical Ventilator 35 97.8 05/11/17 03:26 76 17 35 05/11/17 00:41 75 17 35 05/11/17 00:00 98.1 71 16 129/61 100 Mechanical Ventilator 35 98.1 05/11/17 00:00 83 05/10/17 23:48 74 17 35 05/10/17 21:12 88 19 35 05/10/17 20:00 58 05/10/17 20:00 97.9 79 16 141/60 100 Mechanical Ventilator 35 97.9 05/10/17 20:00 35 05/10/17 19:20 75 15 35 05/10/17 16:37 76 17 35 05/10/17 16:00 35 05/10/17 16:00 97.7 84 16 146/65 100 Mechanical Ventilator 35 97.7 05/10/17 16:00 61 05/10/17 15:03 87 16 35 Intake and Output 05/10/17 05/11/17 19:00 07:00 Intake Total 703.333 ml 515 ml Output Total 725 ml 650 ml Balance -21.667 ml -135 ml Intake Free Water 150 ml 100 ml IV Total 193.333 ml 55 ml Tube Feeding 360 ml 360 ml Output Urine Total 725 ml 650 ml # Bowel Movements 4 3 Laboratory Tests Test 05/11/17 03:50 White Blood Count 10.8 K/UL (4.8-10.8) Red Blood Count 2.67 M/UL (4.20-5.40) L Hemoglobin 8.2 G/DL (12.0-16.0) L Hematocrit 24.8 % (37.0-47.0) L Mean Corpuscular Volume 93 FL (80-99) Mean Corpuscular Hemoglobin 31.0 PG (27.0-31.0) Mean Corpuscular Hemoglobin Concent 33.2 G/DL (32.0-36.0) Red Cell Distribution Width 13.3 % (11.6-14.8) Platelet Count 398 K/UL (150-450) Mean Platelet Volume 7.7 FL (6.5-10.1) Neutrophils (%) (Auto) 65.4 % (45.0-75.0) Lymphocytes (%) (Auto) 14.0 % (20.0-45.0) L Monocytes (%) (Auto) 10.7 % (1.0-10.0) H Eosinophils (%) (Auto) 8.9 % (0.0-3.0) H Basophils (%) (Auto) 1.0 % (0.0-2.0) Sodium Level 141 MMOL/L (136-145) Potassium Level 3.6 MMOL/L (3.5-5.1) Chloride Level 108 MMOL/L (98-107) H Carbon Dioxide Level 24 MMOL/L (21-32) Anion Gap 9 mmol/L (5-15) Blood Urea Nitrogen 17 mg/dL (7-18) Creatinine 0.9 MG/DL (0.55-1.30) Estimat Glomerular Filtration Rate mL/min (>60) Glucose Level 94 MG/DL (74-106) Calcium Level 8.3 MG/DL (8.5-10.1) L Phosphorus Level 3.9 MG/DL (2.5-4.9) Magnesium Level 1.7 MG/DL (1.8-2.4) L Total Bilirubin 0.2 MG/DL (0.2-1.0) Aspartate Amino Transf (AST/SGOT) 30 U/L (15-37) Alanine Aminotransferase (ALT/SGPT) 34 U/L (12-78) Alkaline Phosphatase 174 U/L (46-116) H Total Protein 6.3 G/DL (6.4-8.2) L Albumin 1.8 G/DL (3.4-5.0) L Globulin 4.5 g/dL Albumin/Globulin Ratio 0.4 (1.0-2.7) L Objective HEAD AND NECK: Status post tracheostomy. LUNGS: Coarse rhonchi. CARDIOVASCULAR: Regular S1 and S2 with no gallop. ABDOMEN: Status post G-tube. EXTREMITIES: No pitting edema. SUNDEEP NOBLE May 11, 2017 13:29
[2017-05-11 16:00] VITALS: BP 130/59
[2017-05-11 20:00] VITALS: BP 127/55
--- NOTE | 2017-05-11 20:06 | General Progress Note ---
Assessment/Plan Problem List: (1) Fever ICD Codes: R50.9 - Fever, unspecified SNOMED: 251498406 Qualifiers: Qualified Codes: R50.9 - Fever, unspecified (2) Chronic respiratory failure ICD Codes: J96.10 - Chronic respiratory failure, unspecified whether with hypoxia or hypercapnia SNOMED: 57151929 Qualifiers: Qualified Codes: J96.10 - Chronic respiratory failure, unspecified whether with hypoxia or hypercapnia (3) Diabetes mellitus ICD Codes: E11.9 - Type 2 diabetes mellitus without complications SNOMED: 15370461 (4) Acute on chronic respiratory failure ICD Codes: J96.20 - Acute and chronic respiratory failure, unspecified whether with hypoxia or hypercapnia SNOMED: 80076146 (5) Sepsis ICD Codes: A41.9 - Sepsis, unspecified organism SNOMED: 30483478 Status: progressing Assessment/Plan trach and peg lung collapse improving sepsis improving persistent anemia low k treatment per dr porter afebrile Subjective ROS Limited/Unobtainable: Yes Allergies: Coded Allergies: CODEINE (Unverified Allergy, Unknown, 01/10/17) PENICILLINS (Unverified Allergy, Unknown, 01/10/17) Objective Last 24 Hour Vital Signs Date Time Temp Pulse Resp B/P (MAP) Pulse Ox O2 Delivery O2 Flow Rate FiO2 05/11/17 19:04 98 21 35 05/11/17 16:54 68 17 35 05/11/17 16:00 97.2 75 16 130/59 100 Mechanical Ventilator 35 97.2 05/11/17 16:00 76 05/11/17 16:00 35 05/11/17 14:55 88 17 35 05/11/17 12:35 67 17 35 05/11/17 12:00 97.5 98 18 134/73 98 Mechanical Ventilator 35 97.5 05/11/17 12:00 35 05/11/17 11:35 74 05/11/17 11:27 77 17 35 05/11/17 08:56 76 17 35 05/11/17 08:16 70 132/62 05/11/17 08:00 97.3 68 16 116/58 97 Mechanical Ventilator 35 97.3 05/11/17 08:00 35 05/11/17 07:27 67 05/11/17 07:09 70 20 35 05/11/17 05:26 84 20 35 2/26/18 04:00 35 05/11/17 04:00 61 05/11/17 04:00 97.8 60 16 132/62 100 Mechanical Ventilator 35 97.8 05/11/17 03:26 76 17 35 05/11/17 00:41 75 17 35 05/11/17 00:00 98.1 71 16 129/61 100 Mechanical Ventilator 35 98.1 05/11/17 00:00 83 05/10/17 23:48 74 17 35 05/10/17 21:12 88 19 35 Intake and Output 05/10/17 05/11/17 19:00 07:00 Intake Total 703.333 ml 515 ml Output Total 725 ml 650 ml Balance -21.667 ml -135 ml Intake Free Water 150 ml 100 ml IV Total 193.333 ml 55 ml Tube Feeding 360 ml 360 ml Output Urine Total 725 ml 650 ml # Bowel Movements 4 3 Laboratory Tests 05/11/17 03:50: White Blood Count 10.8, Red Blood Count 2.67L, Hemoglobin 8.2L, Hematocrit 24.8L , Mean Corpuscular Volume 93, Mean Corpuscular Hemoglobin 31.0, Mean Corpuscular Hemoglobin Concent 33.2, Red Cell Distribution Width 13.3, Platelet Count 398, Mean Platelet Volume 7.7, Neutrophils (%) (Auto) 65.4, Lymphocytes (% ) (Auto) 14.0L, Monocytes (%) (Auto) 10.7H, Eosinophils (%) (Auto) 8.9H, Basophils (%) (Auto) 1.0, Sodium Level 141, Potassium Level 3.6, Chloride Level 108H, Carbon Dioxide Level 24, Anion Gap 9, Blood Urea Nitrogen 17, Creatinine 0.9, Estimat Glomerular Filtration Rate , Glucose Level 94, Calcium Level 8.3L, Phosphorus Level 3.9, Magnesium Level 1.7L, Total Bilirubin 0.2, Aspartate Amino Transf (AST/SGOT) 30, Alanine Aminotransferase (ALT/SGPT) 34, Alkaline Phosphatase 174H, Total Protein 6.3L, Albumin 1.8L, Globulin 4.5, Albumin/ Globulin Ratio 0.4L Height (Feet): 4 Height (Inches): 11.00 Weight (Pounds): 118 Neck: supple Abdomen: soft Fernandez Gomez MD May 11, 2017 20:05
[2017-05-11] MEDS: Dyna-Hex 2% Top Sol 2oz TOPIC SCH (21:01)
--- NOTE | 2017-05-11 23:25 | General Progress Note ---
Assessment/Plan Assessment/Plan #. Anemia due to underlying chronic disease. --> Anemia workup reviewed. Iron 19, TIBC 204, Folate 39.5, Vit B12 941 --> Continue to closely monitor. --> Hemoglobin goal is above 7. Does not appear to have any evidence of hemolysis. --> Does not need PRBC at this time. --> No occult blood. #. Ventilator-dependent respiratory failure. Started on antibiotic, broad spectrum by Dr. Gonzalez. #. Methicillin-resistant Staphylococcus aureus in the past. #. Transaminitis. #. Leukocytosis appears to be significant and current leukocyte count elevated with neutrophils 84% and therefore is elevated due to underlying infection. --> Currently, is on vancomycin. Broad spectrum antibiotics. Dr. Gonzalez, has evaluated the patient. --> Resolved, continue to monitor. --> Followup by ID #. Pneumonia. --> On Broad-spectrum antibiotics. --> monitor closely. Subjective Date patient seen: May 11, 2017 Constitutional: Denies: no symptoms, chills, diaphoresis, fever, malaise, weakness, other HEENT: Denies: no symptoms, eye pain, blurred vision, tearing, double vision, ear pain, ear discharge, nose pain, nose congestion, throat pain, throat swelling, mouth pain, mouth swelling, other Cardiovascular: Denies: no symptoms, chest pain, edema, irregular heart rate, lightheadedness, palpitations, syncope, other Respiratory: Denies: no symptoms, cough, orthopnea, shortness of breath, SOB with excertion, SOB at rest, sputum, stridor, wheezing, other Gastrointestinal/Abdominal: Denies: no symptoms, abdomen distended, abdominal pain, black stools, tarry stools, blood in stool, constipated, diarrhea, difficulty swallowing, nausea, poor appetite, poor fluid intake, rectal bleeding , vomiting, other Genitourinary: Denies: no symptoms, burning, discharge, frequency, flank pain, hematuria, incontinence, pain, urgency, other Hematologic/Lymphatic: Reports: anemia Allergies: Coded Allergies: CODEINE (Unverified Allergy, Unknown, 01/10/17) PENICILLINS (Unverified Allergy, Unknown, 01/10/17) Subjective On vent/trach. Non cooperative. Leukocytosis improved. Objective Last 24 Hour Vital Signs Date Time Temp Pulse Resp B/P (MAP) Pulse Ox O2 Delivery O2 Flow Rate FiO2 05/11/17 21:05 102 20 35 05/11/17 20:00 35 05/11/17 20:00 97.7 76 17 127/55 98 Mechanical Ventilator 35 97.7 05/11/17 19:20 67 05/11/17 19:04 98 21 35 05/11/17 16:54 68 17 35 05/11/17 16:00 97.2 75 16 130/59 100 Mechanical Ventilator 35 97.2 05/11/17 16:00 76 05/11/17 16:00 35 05/11/17 14:55 88 17 35 05/11/17 12:35 67 17 35 05/11/17 12:00 97.5 98 18 134/73 98 Mechanical Ventilator 35 97.5 05/11/17 12:00 35 05/11/17 11:35 74 05/11/17 11:27 77 17 35 05/11/17 08:56 76 17 35 05/11/17 08:16 70 132/62 05/11/17 08:00 97.3 68 16 116/58 97 Mechanical Ventilator 35 97.3 05/11/17 08:00 35 05/11/17 07:27 67 05/11/17 07:09 70 20 35 05/11/17 05:26 84 20 35 05/11/17 04:00 35 05/11/17 04:00 61 05/11/17 04:00 97.8 60 16 132/62 100 Mechanical Ventilator 35 97.8 05/11/17 03:26 76 17 35 05/11/17 00:41 75 17 35 05/11/17 00:00 98.1 71 16 129/61 100 Mechanical Ventilator 35 98.1 05/11/17 00:00 83 05/10/17 23:48 74 17 35 Intake and Output 05/10/17 05/11/17 19:00 07:00 Intake Total 703.333 ml 515 ml Output Total 725 ml 650 ml Balance -21.667 ml -135 ml Intake Free Water 150 ml 100 ml IV Total 193.333 ml 55 ml Tube Feeding 360 ml 360 ml Output Urine Total 725 ml 650 ml # Bowel Movements 4 3 Laboratory Tests 05/11/17 03:50: White Blood Count 10.8, Red Blood Count 2.67L, Hemoglobin 8.2L, Hematocrit 24.8L , Mean Corpuscular Volume 93, Mean Corpuscular Hemoglobin 31.0, Mean Corpuscular Hemoglobin Concent 33.2, Red Cell Distribution Width 13.3, Platelet Count 398, Mean Platelet Volume 7.7, Neutrophils (%) (Auto) 65.4, Lymphocytes (% ) (Auto) 14.0L, Monocytes (%) (Auto) 10.7H, Eosinophils (%) (Auto) 8.9H, Basophils (%) (Auto) 1.0, Sodium Level 141, Potassium Level 3.6, Chloride Level 108H, Carbon Dioxide Level 24, Anion Gap 9, Blood Urea Nitrogen 17, Creatinine 0.9, Estimat Glomerular Filtration Rate , Glucose Level 94, Calcium Level 8.3L, Phosphorus Level 3.9, Magnesium Level 1.7L, Total Bilirubin 0.2, Aspartate Amino Transf (AST/SGOT) 30, Alanine Aminotransferase (ALT/SGPT) 34, Alkaline Phosphatase 174H, Total Protein 6.3L, Albumin 1.8L, Globulin 4.5, Albumin/ Globulin Ratio 0.4L Height (Feet): 4 Height (Inches): 11.00 Weight (Pounds): 118 General Appearance: agitated Cardiovascular: normal rate Respiratory/Chest: decreased breath sounds Abdomen: non tender, soft Reinier Lou May 11, 2017 23:25
[2017-05-12] VITALS: BP 129/60
[2017-05-12 04:00] VITALS: BP 115/57
[2017-05-12 04:53] LABS: BASOPHILS % (AUTO) 1.3 % (0.0-2.0); EOSINOPHILS % (AUTO) 9.5 % (0.0-3.0); HEMATOCRIT 27.5 % (37.0-47.0); HEMOGLOBIN 9.1 G/DL (12.0-16.0); LYMPHOCYTES % (AUTO) 12.2 % (20.0-45.0); MEAN CORPUSCULAR VOLUME 93 FL (80-99); MONOCYTES % (AUTO) 12.4 % (1.0-10.0); NEUTROPHILS % (AUTO) 64.5 % (45.0-75.0); PLATELET COUNT 424 K/UL (150-450); RED BLOOD COUNT 2.95 M/UL (4.20-5.40); RED CELL DISTRIBUTION WIDTH 13.9 % (11.6-14.8); WHITE BLOOD COUNT 10.8 K/UL (4.8-10.8)
[2017-05-12 05:30] LABS: ALANINE AMINOTRANSFERASE 38 U/L (12-78); ALBUMIN/GLOBULIN RATIO 0.4 (1.0-2.7); ALKALINE PHOSPHATASE 177 U/L (46-116); ANION GAP 9 mmol/L (5-15); ASPARTATE AMINO TRANSFERASE 30 U/L (15-37); BILIRUBIN,TOTAL 0.2 MG/DL (0.2-1.0); BLOOD UREA NITROGEN 16 mg/dL (7-18); CALCIUM 8.5 MG/DL (8.5-10.1); CARBON DIOXIDE 22 MMOL/L (21-32); CHLORIDE 109 MMOL/L (98-107); PHOSPHORUS 3.4 MG/DL (2.5-4.9); POTASSIUM 3.6 MMOL/L (3.5-5.1); SODIUM 140 MMOL/L (136-145)
[2017-05-12] MEDS: NovoLOG Insulin Flexpen SUBQ SCH ×5 (06:02→23:24)
[2017-05-12 08:00] VITALS: BP 135/49
[2017-05-12] MEDS: Pantoprazole Inj IV SCH (08:33)
[2017-05-12] MEDS: Meropenem 1 GM in NS 55 ML IVPB SCH ×2 (08:33→20:09)
[2017-05-12] MEDS: Heparin 5000 units/ml inj SUBQ SCH ×2 (08:42→20:10)
--- NOTE | 2017-05-12 10:22 | Pulmonolgy Critical Care Note ---
Critical Care - Asmt/Plan Problems: (1) Acute on chronic respiratory failure (2) Collapse of left lung (3) HCAP (healthcare-associated pneumonia) (4) Diabetes mellitus (5) COPD (chronic obstructive pulmonary disease) Respiratory: monitor respiratory rate, adjust FIO2, CXR Cardiac: continue pressors, continue to monitor HR/BP Infectious Disease: check cultures Gastrointestinal: continue feedings/current rate Endocrine: monitor blood sugar, check HgA1C, continue sliding scale insulin Hematologic: monitor H/H, transfuse if hgb<8.5 Neurologic: keep patient comfortable Prophylaxis: Protonix Disposition: keep in ICU 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, 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 Discussed with: nurses, consultants, 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 - Objective Last 24 Hour Vital Signs Date Time Temp Pulse Resp B/P (MAP) Pulse Ox O2 Delivery O2 Flow Rate FiO2 05/12/17 09:23 81 16 35 05/12/17 08:33 89 135/49 05/12/17 08:00 97.5 82 18 135/49 96 Mechanical Ventilator 35 97.5 05/12/17 07:31 70 17 35 05/12/17 05:29 95 20 35 05/12/17 04:00 35 05/12/17 04:00 97.5 72 18 115/57 98 Mechanical Ventilator 35 97.5 05/12/17 04:00 68 05/12/17 02:31 86 20 35 05/12/17 00:56 93 20 35 05/12/17 00:00 35 05/12/17 00:00 98.1 72 18 129/60 98 Mechanical Ventilator 35 98.1 05/12/17 00:00 73 05/11/17 23:07 88 20 35 05/11/17 21:05 102 20 35 05/11/17 20:00 35 05/11/17 20:00 97.7 76 17 127/55 98 Mechanical Ventilator 35 97.7 05/11/17 19:20 67 05/11/17 19:04 98 21 35 05/11/17 16:54 68 17 35 05/11/17 16:00 97.2 75 16 130/59 100 Mechanical Ventilator 35 97.2 05/11/17 16:00 76 05/11/17 16:00 35 05/11/17 14:55 88 17 35 05/11/17 12:35 67 17 35 2/26/18 12:00 97.5 98 18 134/73 98 Mechanical Ventilator 35 97.5 05/11/17 12:00 35 05/11/17 11:35 74 05/11/17 11:27 77 17 35 Status: awake Condition: critical HEENT: atraumatic Neck: full ROM Lungs: chest wall tender Heart: HR/BP unstable Abdomen: soft, active bowel sounds Extremities: no C/C/E Decubiti: stage Accucheck: 116 Critical Care - Subjective ROS Limited/Unobtainable: Yes Condition: critical FI02: 35 Vent Support Breath Rate: 16 Vent Support Mode: AC Vent Tidal Volume: 600 Sputum Amount: Small PEEP: 5.0 PIP: 29 Tube Feeding Amount: 30 I&O: Intake and Output 05/11/17 05/12/17 19:00 07:00 Intake Total 620 ml 385 ml Output Total 1100 ml 800 ml Balance -480 ml -415 ml Intake Free Water 150 ml IV Total 110 ml 55 ml Tube Feeding 360 ml 330 ml Output Urine Total 1100 ml 800 ml # Bowel Movements 1 2 CXR: improving Labs: Laboratory Tests Test 05/12/17 03:30 White Blood Count 10.8 K/UL (4.8-10.8) Red Blood Count 2.95 M/UL (4.20-5.40) L Hemoglobin 9.1 G/DL (12.0-16.0) L Hematocrit 27.5 % (37.0-47.0) L Mean Corpuscular Volume 93 FL (80-99) Mean Corpuscular Hemoglobin 30.8 PG (27.0-31.0) Mean Corpuscular Hemoglobin Concent 33.0 G/DL (32.0-36.0) Red Cell Distribution Width 13.9 % (11.6-14.8) Platelet Count 424 K/UL (150-450) Mean Platelet Volume 8.0 FL (6.5-10.1) Neutrophils (%) (Auto) 64.5 % (45.0-75.0) Lymphocytes (%) (Auto) 12.2 % (20.0-45.0) L Monocytes (%) (Auto) 12.4 % (1.0-10.0) H Eosinophils (%) (Auto) 9.5 % (0.0-3.0) H Basophils (%) (Auto) 1.3 % (0.0-2.0) Erythrocyte Sedimentation Rate 104 MM/HR (0-30) H Sodium Level 140 MMOL/L (136-145) Potassium Level 3.6 MMOL/L (3.5-5.1) Chloride Level 109 MMOL/L (98-107) H Carbon Dioxide Level 22 MMOL/L (21-32) Anion Gap 9 mmol/L (5-15) Blood Urea Nitrogen 16 mg/dL (7-18) Creatinine 1.0 MG/DL (0.55-1.30) Estimat Glomerular Filtration Rate mL/min (>60) Glucose Level 99 MG/DL (74-106) Calcium Level 8.5 MG/DL (8.5-10.1) Phosphorus Level 3.4 MG/DL (2.5-4.9) Magnesium Level 2.1 MG/DL (1.8-2.4) Total Bilirubin 0.2 MG/DL (0.2-1.0) Aspartate Amino Transf (AST/SGOT) 30 U/L (15-37) Alanine Aminotransferase (ALT/SGPT) 38 U/L (12-78) Alkaline Phosphatase 177 U/L (46-116) H Total Protein 6.8 G/DL (6.4-8.2) Albumin 2.0 G/DL (3.4-5.0) L Globulin 4.8 g/dL Albumin/Globulin Ratio 0.4 (1.0-2.7) L YOVANNY CARRINGTON May 12, 2017 10:22
[2017-05-12 12:00] VITALS: BP 131/64
--- NOTE | 2017-05-12 13:11 | Infectious Diseases Prog Note ---
Assessment/Plan Assessment/Plan A; Pneumonia with Providencia & Morganella VDRF COPD Anemia Penicillin allergy P; continue Meropenem x 4 days Subjective ROS Limited/Unobtainable: Yes Constitutional: Reports: other - afebrile Allergies: Coded Allergies: CODEINE (Unverified Allergy, Unknown, 01/10/17) PENICILLINS (Unverified Allergy, Unknown, 01/10/17) Objective Vital Signs Last 24 Hour Vital Signs Date Time Temp Pulse Resp B/P (MAP) Pulse Ox O2 Delivery O2 Flow Rate FiO2 05/12/17 12:00 97.9 85 23 131/64 95 Mechanical Ventilator 35 97.9 05/12/17 12:00 35 05/12/17 10:48 81 16 35 05/12/17 09:23 81 16 35 05/12/17 08:33 89 135/49 05/12/17 08:00 97.5 82 18 135/49 96 Mechanical Ventilator 35 97.5 05/12/17 08:00 35 05/12/17 07:49 75 05/12/17 07:31 70 17 35 05/12/17 05:29 95 20 35 05/12/17 04:00 35 05/12/17 04:00 97.5 72 18 115/57 98 Mechanical Ventilator 35 97.5 05/12/17 04:00 68 05/12/17 02:31 86 20 35 05/12/17 00:56 93 20 35 05/12/17 00:00 35 05/12/17 00:00 98.1 72 18 129/60 98 Mechanical Ventilator 35 98.1 05/12/17 00:00 73 05/11/17 23:07 88 20 35 05/11/17 21:05 102 20 35 05/11/17 20:00 35 05/11/17 20:00 97.7 76 17 127/55 98 Mechanical Ventilator 35 97.7 05/11/17 19:20 67 05/11/17 19:04 98 21 35 05/11/17 16:54 68 17 35 05/11/17 16:00 97.2 75 16 130/59 100 Mechanical Ventilator 35 97.2 05/11/17 16:00 76 05/11/17 16:00 35 05/11/17 14:55 88 17 35 Height (Feet): 4 Height (Inches): 11.00 Weight (Pounds): 118 General Appearance: no acute distress HEENT: status post trach Respiratory/Chest: decreased breath sounds, other - on ventilator Cardiovascular: normal rate Abdomen: soft, non tender, other - GT feeding Extremities: no edema Neurologic/Psychiatric: alert, responsive Laboratory Tests Test 05/12/17 03:30 White Blood Count 10.8 K/UL (4.8-10.8) Red Blood Count 2.95 M/UL (4.20-5.40) L Hemoglobin 9.1 G/DL (12.0-16.0) L Hematocrit 27.5 % (37.0-47.0) L Mean Corpuscular Volume 93 FL (80-99) Mean Corpuscular Hemoglobin 30.8 PG (27.0-31.0) Mean Corpuscular Hemoglobin Concent 33.0 G/DL (32.0-36.0) Red Cell Distribution Width 13.9 % (11.6-14.8) Platelet Count 424 K/UL (150-450) Mean Platelet Volume 8.0 FL (6.5-10.1) Neutrophils (%) (Auto) 64.5 % (45.0-75.0) Lymphocytes (%) (Auto) 12.2 % (20.0-45.0) L Monocytes (%) (Auto) 12.4 % (1.0-10.0) H Eosinophils (%) (Auto) 9.5 % (0.0-3.0) H Basophils (%) (Auto) 1.3 % (0.0-2.0) Erythrocyte Sedimentation Rate 104 MM/HR (0-30) H Sodium Level 140 MMOL/L (136-145) Potassium Level 3.6 MMOL/L (3.5-5.1) Chloride Level 109 MMOL/L (98-107) H Carbon Dioxide Level 22 MMOL/L (21-32) Anion Gap 9 mmol/L (5-15) Blood Urea Nitrogen 16 mg/dL (7-18) Creatinine 1.0 MG/DL (0.55-1.30) Estimat Glomerular Filtration Rate mL/min (>60) Glucose Level 99 MG/DL (74-106) Calcium Level 8.5 MG/DL (8.5-10.1) Phosphorus Level 3.4 MG/DL (2.5-4.9) Magnesium Level 2.1 MG/DL (1.8-2.4) Total Bilirubin 0.2 MG/DL (0.2-1.0) Aspartate Amino Transf (AST/SGOT) 30 U/L (15-37) Alanine Aminotransferase (ALT/SGPT) 38 U/L (12-78) Alkaline Phosphatase 177 U/L (46-116) H Total Protein 6.8 G/DL (6.4-8.2) Albumin 2.0 G/DL (3.4-5.0) L Globulin 4.8 g/dL Albumin/Globulin Ratio 0.4 (1.0-2.7) L Current Medications Medications (Trade) Dose Ordered Sig/Sky Route PRN Reason Start Time Stop Time Status Last Admin Dose Admin Acetaminophen (Tylenol) 650 mg Q4HR PRN GT Mild Pain/Temp > 100.5 05/10/17 01:00 06/09/17 00:59 Amlodipine Besylate (Norvasc) 2.5 mg DAILY GT 05/05/17 09:00 06/04/17 08:59 05/12/17 08:33 Chlorhexidine Gluconate (Myra-Hex 2%) 1 applic DAILY@2000 TOPIC 05/05/17 20:00 06/04/17 19:59 05/11/17 21:01 Dextrose (Dextrose 50%) STAT PRN IV Hypoglycemia 05/05/17 16:00 06/04/17 15:59 Heparin Sodium (Porcine) (Heparin 5000 units/ml) 5,000 units EVERY 12 HOURS SUBQ 05/04/17 21:00 06/03/17 20:59 05/12/17 08:42 Insulin Aspart (NovoLOG) EVERY 6 HOURS SUBQ 05/05/17 18:00 06/04/17 16:29 05/12/17 06:02 Meropenem 1 gm/ Sodium Chloride 55 ml @ 110 mls/hr Q12HR IVPB 05/10/17 10:00 05/15/17 09:59 05/12/17 08:33 Ondansetron HCl (Zofran) 4 mg Q6H PRN IVP Nausea & Vomiting 05/04/17 20:15 06/03/17 20:14 Pantoprazole (Protonix) 40 mg DAILY IV 05/07/17 09:00 06/04/17 08:59 05/12/17 08:33 Polyethylene Glycol (Miralax) 17 gm DAILYPRN PRN GT Constipation 05/10/17 01:00 06/09/17 00:59 DEEDEE KENDALL May 12, 2017 13:11
--- NOTE | 2017-05-12 14:43 | Nephrology Progress Note ---
Assessment/Plan Problem List: (1) Chronic respiratory failure (2) Azotemia (3) Proteinuria Assessment 76 y old- Admitted with fever & Pneumonia - Has chronic Respiratory failure Mild Azotemia- Proteinuria likely Diabetic Nephropathy HypoAlbuminemia, r/o Nephrotic Syndrom Anemia , etiology?? PEG Stable from renal stand Plan Plan: Pulmonary support- AntiBiotics IV iron Anemia workup: low Iron Keep BP and BS in check Urine studies DC IV fluid Subjective ROS Limited/Unobtainable: Yes Objective Objective Last 24 Hour Vital Signs Date Time Temp Pulse Resp B/P (MAP) Pulse Ox O2 Delivery O2 Flow Rate FiO2 05/12/17 13:23 83 17 35 05/12/17 12:00 97.9 85 23 131/64 95 Mechanical Ventilator 35 97.9 05/12/17 12:00 35 05/12/17 11:40 77 05/12/17 10:48 81 16 35 05/12/17 09:23 81 16 35 05/12/17 08:33 89 135/49 05/12/17 08:00 97.5 82 18 135/49 96 Mechanical Ventilator 35 97.5 05/12/17 08:00 35 05/12/17 07:49 75 05/12/17 07:31 70 17 35 05/12/17 05:29 95 20 35 05/12/17 04:00 35 05/12/17 04:00 97.5 72 18 115/57 98 Mechanical Ventilator 35 97.5 05/12/17 04:00 68 05/12/17 02:31 86 20 35 05/12/17 00:56 93 20 35 05/12/17 00:00 35 05/12/17 00:00 98.1 72 18 129/60 98 Mechanical Ventilator 35 98.1 05/12/17 00:00 73 05/11/17 23:07 88 20 35 05/11/17 21:05 102 20 35 05/11/17 20:00 35 05/11/17 20:00 97.7 76 17 127/55 98 Mechanical Ventilator 35 97.7 05/11/17 19:20 67 05/11/17 19:04 98 21 35 05/11/17 16:54 68 17 35 05/11/17 16:00 97.2 75 16 130/59 100 Mechanical Ventilator 35 97.2 05/11/17 16:00 76 05/11/17 16:00 35 05/11/17 14:55 88 17 35 Intake and Output 05/11/17 05/12/17 19:00 07:00 Intake Total 620 ml 385 ml Output Total 1100 ml 800 ml Balance -480 ml -415 ml Intake Free Water 150 ml IV Total 110 ml 55 ml Tube Feeding 360 ml 330 ml Output Urine Total 1100 ml 800 ml # Bowel Movements 1 2 Laboratory Tests 05/12/17 03:30: White Blood Count 10.8, Red Blood Count 2.95L, Hemoglobin 9.1L, Hematocrit 27.5L , Mean Corpuscular Volume 93, Mean Corpuscular Hemoglobin 30.8, Mean Corpuscular Hemoglobin Concent 33.0, Red Cell Distribution Width 13.9, Platelet Count 424, Mean Platelet Volume 8.0, Neutrophils (%) (Auto) 64.5, Lymphocytes (% ) (Auto) 12.2L, Monocytes (%) (Auto) 12.4H, Eosinophils (%) (Auto) 9.5H, Basophils (%) (Auto) 1.3, Erythrocyte Sedimentation Rate 104H, Sodium Level 140 , Potassium Level 3.6, Chloride Level 109H, Carbon Dioxide Level 22, Anion Gap 9 , Blood Urea Nitrogen 16, Creatinine 1.0, Estimat Glomerular Filtration Rate , Glucose Level 99, Calcium Level 8.5, Phosphorus Level 3.4, Magnesium Level 2.1, Total Bilirubin 0.2, Aspartate Amino Transf (AST/SGOT) 30, Alanine Aminotransferase (ALT/SGPT) 38, Alkaline Phosphatase 177H, Total Protein 6.8, Albumin 2.0L, Globulin 4.8, Albumin/Globulin Ratio 0.4L Height (Feet): 4 Height (Inches): 11.00 Weight (Pounds): 118 EENT: other - connected to vent Cardiovascular: tachycardia Respiratory/Chest: decreased breath sounds Abdomen: distended Objective no change PARVIZ ALFARO May 12, 2017 14:43
--- NOTE | 2017-05-12 14:47 | Cardiology Report ---
APPROVED REPORT EXAM: Two-dimensional and M-mode echocardiogram with Doppler and color Doppler. INDICATION Bradycardia M-Mode DIMENSIONS IVSd1.1 (0.7-1.1cm)Left Atrium (MM)3.9 (1.6-4.0cm) LVDd5.0 (3.5-5.6cm)Aortic Root2.6 (2.0-3.7cm) PWd1.0 (0.7-1.1cm)Aortic Cusp Exc.1.7 (1.5-2.0cm) LVDs2.8 (2.5-4.0cm) PWs1.7 cm Technically difficult study due to poor acoustical windows.Patient on vent. Normal left ventricular chamber size, systolic function and wall motion. Left ventricular ejection fraction estimated to be 60-65%. No evidence of left ventricular hypertrophy. No evidence of pericardial or pleural effusion. All other cardiac chamber sizes are within normal limits. Focal aortic valve sclerosis with adequate cusp excursion. Normal mitral valve leaflets with normal excursion. Mild mitral annulus and aortic root calcification. Pulmonic valve not well visualized. Normal tricuspid valve structure. IVC is normal in size and collapsible with respiration. A color flow and spectral Doppler study was performed and revealed: Trace aortic regurgitation. Trace mitral regurgitation. Mitral diastolic velocities suggest reduced left ventricular relaxation c/w diastolic dysfunction grade 1. Mild tricuspid regurgitation. Tricuspid systolic velocities suggests peak right ventricular systolic pressure of 40mmHg Consistent with mild pulmonary hypertension.
[2017-05-12] MEDS: Acetaminophen 650mg/20.3ml GT PRN (15:47)
[2017-05-12 16:00] VITALS: BP 122/60
--- NOTE | 2017-05-12 16:49 | Cardiac Electrophysiology PN ---
Assessment/Plan Assessment/Plan 1. Transient bradycardia only when sleeping. EF 65% No SD. T4 normal Keep off MAHMOOD and AVN blockers 2. Hypertension, on Norvasc 2.5 mg daily. 3. Sepsis and fever due to PNA, on IV antibiotics 4. Diabetes. 5. Ventilator-dependent respiratory failure, status post tracheostomy. 6. Dysphagia, status post PEG Dw RN Subjective Subjective No further bradycardia reported.RN at bedside. BP stable. Objective Last 24 Hour Vital Signs Date Time Temp Pulse Resp B/P (MAP) Pulse Ox O2 Delivery O2 Flow Rate FiO2 05/12/17 16:00 35 05/12/17 15:17 82 18 35 05/12/17 13:23 83 17 35 05/12/17 12:00 97.9 85 23 131/64 95 Mechanical Ventilator 35 97.9 05/12/17 12:00 35 05/12/17 11:40 77 05/12/17 10:48 81 16 35 05/12/17 09:23 81 16 35 05/12/17 08:33 89 135/49 05/12/17 08:00 97.5 82 18 135/49 96 Mechanical Ventilator 35 97.5 05/12/17 08:00 35 05/12/17 07:49 75 05/12/17 07:31 70 17 35 05/12/17 05:29 95 20 35 05/12/17 04:00 35 05/12/17 04:00 97.5 72 18 115/57 98 Mechanical Ventilator 35 97.5 05/12/17 04:00 68 05/12/17 02:31 86 20 35 05/12/17 00:56 93 20 35 05/12/17 00:00 35 05/12/17 00:00 98.1 72 18 129/60 98 Mechanical Ventilator 35 98.1 05/12/17 00:00 73 05/11/17 23:07 88 20 35 05/11/17 21:05 102 20 35 05/11/17 20:00 35 05/11/17 20:00 97.7 76 17 127/55 98 Mechanical Ventilator 35 97.7 05/11/17 19:20 67 05/11/17 19:04 98 21 35 05/11/17 16:54 68 17 35 Intake and Output 05/11/17 05/12/17 19:00 07:00 Intake Total 620 ml 385 ml Output Total 1100 ml 800 ml Balance -480 ml -415 ml Intake Free Water 150 ml IV Total 110 ml 55 ml Tube Feeding 360 ml 330 ml Output Urine Total 1100 ml 800 ml # Bowel Movements 1 2 Laboratory Tests Test 05/12/17 03:30 White Blood Count 10.8 K/UL (4.8-10.8) Red Blood Count 2.95 M/UL (4.20-5.40) L Hemoglobin 9.1 G/DL (12.0-16.0) L Hematocrit 27.5 % (37.0-47.0) L Mean Corpuscular Volume 93 FL (80-99) Mean Corpuscular Hemoglobin 30.8 PG (27.0-31.0) Mean Corpuscular Hemoglobin Concent 33.0 G/DL (32.0-36.0) Red Cell Distribution Width 13.9 % (11.6-14.8) Platelet Count 424 K/UL (150-450) Mean Platelet Volume 8.0 FL (6.5-10.1) Neutrophils (%) (Auto) 64.5 % (45.0-75.0) Lymphocytes (%) (Auto) 12.2 % (20.0-45.0) L Monocytes (%) (Auto) 12.4 % (1.0-10.0) H Eosinophils (%) (Auto) 9.5 % (0.0-3.0) H Basophils (%) (Auto) 1.3 % (0.0-2.0) Erythrocyte Sedimentation Rate 104 MM/HR (0-30) H Sodium Level 140 MMOL/L (136-145) Potassium Level 3.6 MMOL/L (3.5-5.1) Chloride Level 109 MMOL/L (98-107) H Carbon Dioxide Level 22 MMOL/L (21-32) Anion Gap 9 mmol/L (5-15) Blood Urea Nitrogen 16 mg/dL (7-18) Creatinine 1.0 MG/DL (0.55-1.30) Estimat Glomerular Filtration Rate mL/min (>60) Glucose Level 99 MG/DL (74-106) Calcium Level 8.5 MG/DL (8.5-10.1) Phosphorus Level 3.4 MG/DL (2.5-4.9) Magnesium Level 2.1 MG/DL (1.8-2.4) Total Bilirubin 0.2 MG/DL (0.2-1.0) Aspartate Amino Transf (AST/SGOT) 30 U/L (15-37) Alanine Aminotransferase (ALT/SGPT) 38 U/L (12-78) Alkaline Phosphatase 177 U/L (46-116) H Total Protein 6.8 G/DL (6.4-8.2) Albumin 2.0 G/DL (3.4-5.0) L Globulin 4.8 g/dL Albumin/Globulin Ratio 0.4 (1.0-2.7) L Objective HEAD AND NECK: Status post tracheostomy. LUNGS: Coarse rhonchi. CARDIOVASCULAR: Regular S1 and S2 with no gallop. ABDOMEN: Status post G-tube. EXTREMITIES: No pitting edema. SUNDEEP NOBLE May 12, 2017 16:49
--- NOTE | 2017-05-12 16:55 | General Progress Note ---
Assessment/Plan Problem List: (1) Fever ICD Codes: R50.9 - Fever, unspecified SNOMED: 816265428 Qualifiers: Qualified Codes: R50.9 - Fever, unspecified (2) Chronic respiratory failure ICD Codes: J96.10 - Chronic respiratory failure, unspecified whether with hypoxia or hypercapnia SNOMED: 11474533 Qualifiers: Qualified Codes: J96.10 - Chronic respiratory failure, unspecified whether with hypoxia or hypercapnia (3) Diabetes mellitus ICD Codes: E11.9 - Type 2 diabetes mellitus without complications SNOMED: 02010638 (4) Acute on chronic respiratory failure ICD Codes: J96.20 - Acute and chronic respiratory failure, unspecified whether with hypoxia or hypercapnia SNOMED: 34014533 (5) Sepsis ICD Codes: A41.9 - Sepsis, unspecified organism SNOMED: 20585795 Assessment/Plan trach and peg lung collapse improving sepsis improving persistent anemia will discuss w pulmonary re dc status no bleeding no fever Subjective ROS Limited/Unobtainable: Yes Allergies: Coded Allergies: CODEINE (Unverified Allergy, Unknown, 01/10/17) PENICILLINS (Unverified Allergy, Unknown, 01/10/17) Objective Last 24 Hour Vital Signs Date Time Temp Pulse Resp B/P (MAP) Pulse Ox O2 Delivery O2 Flow Rate FiO2 05/12/17 16:00 35 05/12/17 15:17 82 18 35 05/12/17 13:23 83 17 35 05/12/17 12:00 97.9 85 23 131/64 95 Mechanical Ventilator 35 97.9 05/12/17 12:00 35 05/12/17 11:40 77 05/12/17 10:48 81 16 35 05/12/17 09:23 81 16 35 05/12/17 08:33 89 135/49 05/12/17 08:00 97.5 82 18 135/49 96 Mechanical Ventilator 35 97.5 05/12/17 08:00 35 05/12/17 07:49 75 05/12/17 07:31 70 17 35 05/12/17 05:29 95 20 35 05/12/17 04:00 35 05/12/17 04:00 97.5 72 18 115/57 98 Mechanical Ventilator 35 97.5 05/12/17 04:00 68 05/12/17 02:31 86 20 35 05/12/17 00:56 93 20 35 05/12/17 00:00 35 05/12/17 00:00 98.1 72 18 129/60 98 Mechanical Ventilator 35 98.1 05/12/17 00:00 73 05/11/17 23:07 88 20 35 05/11/17 21:05 102 20 35 05/11/17 20:00 35 05/11/17 20:00 97.7 76 17 127/55 98 Mechanical Ventilator 35 97.7 05/11/17 19:20 67 05/11/17 19:04 98 21 35 05/11/17 16:54 68 17 35 Intake and Output 05/11/17 05/12/17 19:00 07:00 Intake Total 620 ml 385 ml Output Total 1100 ml 800 ml Balance -480 ml -415 ml Intake Free Water 150 ml IV Total 110 ml 55 ml Tube Feeding 360 ml 330 ml Output Urine Total 1100 ml 800 ml # Bowel Movements 1 2 Laboratory Tests 05/12/17 03:30: White Blood Count 10.8, Red Blood Count 2.95L, Hemoglobin 9.1L, Hematocrit 27.5L , Mean Corpuscular Volume 93, Mean Corpuscular Hemoglobin 30.8, Mean Corpuscular Hemoglobin Concent 33.0, Red Cell Distribution Width 13.9, Platelet Count 424, Mean Platelet Volume 8.0, Neutrophils (%) (Auto) 64.5, Lymphocytes (% ) (Auto) 12.2L, Monocytes (%) (Auto) 12.4H, Eosinophils (%) (Auto) 9.5H, Basophils (%) (Auto) 1.3, Erythrocyte Sedimentation Rate 104H, Sodium Level 140 , Potassium Level 3.6, Chloride Level 109H, Carbon Dioxide Level 22, Anion Gap 9 , Blood Urea Nitrogen 16, Creatinine 1.0, Estimat Glomerular Filtration Rate , Glucose Level 99, Calcium Level 8.5, Phosphorus Level 3.4, Magnesium Level 2.1, Total Bilirubin 0.2, Aspartate Amino Transf (AST/SGOT) 30, Alanine Aminotransferase (ALT/SGPT) 38, Alkaline Phosphatase 177H, Total Protein 6.8, Albumin 2.0L, Globulin 4.8, Albumin/Globulin Ratio 0.4L Height (Feet): 4 Height (Inches): 11.00 Weight (Pounds): 118 General Appearance: confused Abdomen: soft Fernandez Gomez MD May 12, 2017 16:55
[2017-05-12 20:00] VITALS: BP 126/56
[2017-05-12] MEDS: Dyna-Hex 2% Top Sol 2oz TOPIC SCH (20:09)
[2017-05-13] VITALS: BP 121/60
[2017-05-13 04:00] VITALS: BP 121/60
[2017-05-13] MEDS: NovoLOG Insulin Flexpen SUBQ SCH ×4 (05:05→23:58)
[2017-05-13 08:00] VITALS: BP 100/71
--- NOTE | 2017-05-13 09:34 | General Progress Note ---
Assessment/Plan Assessment/Plan #. Anemia due to underlying chronic disease. --> Anemia workup reviewed. Iron 19, TIBC 204, Folate 39.5, Vit B12 941 --> Continue to closely monitor. --> Hemoglobin goal is above 7. Does not appear to have any evidence of hemolysis. --> Hemoglobin is improving, does not required prbc. --> No occult blood. #. Ventilator-dependent respiratory failure. Started on antibiotic, broad spectrum by Dr. Gonzalez. --> continue to monitor closely. --> Remains on vent/trach #. Methicillin-resistant Staphylococcus aureus in the past. --> On Antibiotics. #. Transaminitis. #. Leukocytosis appears to be significant and current leukocyte count elevated with neutrophils 84% and therefore is elevated due to underlying infection. --> Currently, is on vancomycin. Broad spectrum antibiotics. Dr. Gonzalez, has evaluated the patient. --> Resolved, continue to monitor. --> Followup by ID #. Pneumonia. --> On Broad-spectrum antibiotics. --> monitor closely. Subjective Date patient seen: May 12, 2017 Constitutional: Denies: no symptoms, chills, diaphoresis, fever, malaise, weakness, other HEENT: Denies: no symptoms, eye pain, blurred vision, tearing, double vision, ear pain, ear discharge, nose pain, nose congestion, throat pain, throat swelling, mouth pain, mouth swelling, other Cardiovascular: Denies: no symptoms, chest pain, edema, irregular heart rate, lightheadedness, palpitations, syncope, other Respiratory: Denies: no symptoms, cough, orthopnea, shortness of breath, SOB with excertion, SOB at rest, sputum, stridor, wheezing, other Gastrointestinal/Abdominal: Denies: no symptoms, abdomen distended, abdominal pain, black stools, tarry stools, blood in stool, constipated, diarrhea, difficulty swallowing, nausea, poor appetite, poor fluid intake, rectal bleeding , vomiting, other Genitourinary: Denies: no symptoms, burning, discharge, frequency, flank pain, hematuria, incontinence, pain, urgency, other Neurologic/Psychiatric: Denies: no symptoms, anxiety, depressed, emotional problems, headache, numbness, paresthesia, pre-existing deficit, seizure, tingling, tremors, weakness, other Hematologic/Lymphatic: Reports: anemia Allergies: Coded Allergies: CODEINE (Unverified Allergy, Unknown, 01/10/17) PENICILLINS (Unverified Allergy, Unknown, 01/10/17) Subjective Hgb improved today. Wbc WNL. No acute events. Objective Last 24 Hour Vital Signs Date Time Temp Pulse Resp B/P (MAP) Pulse Ox O2 Delivery O2 Flow Rate FiO2 05/13/17 08:36 99 21 35 05/13/17 08:00 97.7 21 21 100/71 99 Mechanical Ventilator 35 97.7 05/13/17 08:00 35 05/13/17 06:34 87 17 35 05/13/17 04:00 35 05/13/17 04:00 98.9 21 22 121/60 99 Mechanical Ventilator 35 98.9 05/13/17 04:00 80 05/13/17 03:35 79 18 35 05/13/17 01:25 82 17 35 05/13/17 00:00 97.9 85 22 121/60 99 Mechanical Ventilator 35 97.9 05/13/17 00:00 79 05/13/17 00:00 35 05/12/17 23:38 80 21 35 05/12/17 21:15 75 18 35 05/12/17 20:00 72 05/12/17 20:00 97.5 74 16 126/56 99 Mechanical Ventilator 35 97.5 05/12/17 20:00 35 05/12/17 19:30 72 16 35 05/12/17 16:54 79 16 35 05/12/17 16:00 35 05/12/17 16:00 98.0 74 17 122/60 99 Mechanical Ventilator 35 98.0 05/12/17 15:59 75 05/12/17 15:17 82 18 35 05/12/17 13:23 83 17 35 05/12/17 12:00 97.9 85 23 131/64 95 Mechanical Ventilator 35 97.9 05/12/17 12:00 35 05/12/17 11:40 77 05/12/17 10:48 81 16 35 Intake and Output 05/12/17 05/13/17 19:00 07:00 Intake Total 515 ml 570 ml Output Total 550 ml 250 ml Balance -35 ml 320 ml Intake Free Water 60 ml 100 ml IV Total 55 ml 110 ml Tube Feeding 360 ml 360 ml Other 40 ml Output Urine Total 550 ml 250 ml # Bowel Movements 2 3 Height (Feet): 4 Height (Inches): 11.00 Weight (Pounds): 118 General Appearance: no apparent distress Respiratory/Chest: decreased breath sounds Abdomen: non tender, soft Edema: trace edema Skin: warm/dry Reinier Lou May 13, 2017 09:33
--- NOTE | 2017-05-13 09:41 | Diagnostic Imaging Report ---
Indication: Dyspnea Technique: One view of the chest Comparison: 05/11/2017 Findings: Unchanged tracheostomy, left arm PICC. Retrocardiac consolidation and left-sided pleural effusion appears similar to the prior study. Interstitial disease throughout the right lung, right upper lobe linear opacities, right-sided pleural fluid appears similar to the prior exam as well. The heart size is normal. There is some stable volume loss of the left lung. Impression: Unchanged, over 2 days, findings as above.
--- NOTE | 2017-05-13 10:42 | Infectious Diseases Prog Note ---
Assessment/Plan Assessment/Plan A; Pneumonia with Providencia & Morganella VDRF COPD Anemia Penicillin allergy P; continue Meropenem x 3 days Subjective ROS Limited/Unobtainable: Yes Allergies: Coded Allergies: CODEINE (Unverified Allergy, Unknown, 01/10/17) PENICILLINS (Unverified Allergy, Unknown, 01/10/17) Objective Vital Signs Last 24 Hour Vital Signs Date Time Temp Pulse Resp B/P (MAP) Pulse Ox O2 Delivery O2 Flow Rate FiO2 05/13/17 08:36 99 21 35 05/13/17 08:00 97.7 21 21 100/71 99 Mechanical Ventilator 35 97.7 05/13/17 08:00 35 05/13/17 06:34 87 17 35 05/13/17 04:00 35 05/13/17 04:00 98.9 21 22 121/60 99 Mechanical Ventilator 35 98.9 05/13/17 04:00 80 05/13/17 03:35 79 18 35 05/13/17 01:25 82 17 35 05/13/17 00:00 97.9 85 22 121/60 99 Mechanical Ventilator 35 97.9 05/13/17 00:00 79 05/13/17 00:00 35 05/12/17 23:38 80 21 35 05/12/17 21:15 75 18 35 05/12/17 20:00 72 05/12/17 20:00 97.5 74 16 126/56 99 Mechanical Ventilator 35 97.5 05/12/17 20:00 35 05/12/17 19:30 72 16 35 05/12/17 16:54 79 16 35 05/12/17 16:00 35 05/12/17 16:00 98.0 74 17 122/60 99 Mechanical Ventilator 35 98.0 05/12/17 15:59 75 05/12/17 15:17 82 18 35 05/12/17 13:23 83 17 35 05/12/17 12:00 97.9 85 23 131/64 95 Mechanical Ventilator 35 97.9 05/12/17 12:00 35 05/12/17 11:40 77 05/12/17 10:48 81 16 35 Height (Feet): 4 Height (Inches): 11.00 Weight (Pounds): 118 HEENT: status post trach Respiratory/Chest: decreased breath sounds Cardiovascular: normal rate, other - left arm PICC line Abdomen: soft, non tender, other - GT feeding Extremities: no edema Neurologic/Psychiatric: alert, responsive Musculoskeletal: atrophy Current Medications Medications (Trade) Dose Ordered Sig/Sky Route PRN Reason Start Time Stop Time Status Last Admin Dose Admin Acetaminophen (Tylenol) 650 mg Q4HR PRN GT Mild Pain/Temp > 100.5 05/10/17 01:00 06/09/17 00:59 05/12/17 15:47 Amlodipine Besylate (Norvasc) 2.5 mg DAILY GT 05/05/17 09:00 06/04/17 08:59 05/12/17 08:33 Chlorhexidine Gluconate (Myra-Hex 2%) 1 applic DAILY@2000 TOPIC 05/05/17 20:00 06/04/17 19:59 05/12/17 20:09 Dextrose (Dextrose 50%) STAT PRN IV Hypoglycemia 05/05/17 16:00 06/04/17 15:59 Heparin Sodium (Porcine) (Heparin 5000 units/ml) 5,000 units EVERY 12 HOURS SUBQ 05/04/17 21:00 06/03/17 20:59 05/12/17 20:10 Insulin Aspart (NovoLOG) EVERY 6 HOURS SUBQ 05/05/17 18:00 06/04/17 16:29 05/12/17 06:02 Meropenem 1 gm/ Sodium Chloride 55 ml @ 110 mls/hr Q12HR IVPB 05/10/17 10:00 05/15/17 09:59 05/12/17 20:09 Ondansetron HCl (Zofran) 4 mg Q6H PRN IVP Nausea & Vomiting 05/04/17 20:15 06/03/17 20:14 Pantoprazole (Protonix) 40 mg DAILY IV 05/07/17 09:00 06/04/17 08:59 05/12/17 08:33 DEEDEE KENDALL May 13, 2017 10:41
[2017-05-13 12:00] VITALS: BP 134/60
--- NOTE | 2017-05-13 12:11 | Pulmonology Progress Note ---
Assessment/Plan Assessment/Plan ASSESSMENT Acute on chronic respiratory failure VDRF/trach Collapse of left lung HCAP (healthcare-associated pneumonia) Diabetes mellitus COPD (chronic obstructive pulmonary disease) HTN transient bradycardia mild pulmonary HTN dysphagia, G tube anemia of chronic disease PLAN OF CARE TAYA vent/trach care, pulm toilet baseline ABG in am and titrate settings as needed fu with CXR in am abx ID follows strict asp precautions GT feeding, monitor tolerance cardio follows transient unique when sleeping only, recommended avoid AVN and MAHMOOD blockers BP management with CCB ECHO with pEF and evidence of mild pulm HTN DVT GI prophylaxis BS management with SS of insulin bowel regimen supportive care anemia w/up c/w anemia of chronic disease, monitor counts at baseline dc plan case discussed and evaluated by supervising physician Subjective Allergies: Coded Allergies: CODEINE (Unverified Allergy, Unknown, 01/10/17) PENICILLINS (Unverified Allergy, Unknown, 01/10/17) Subjective leucocytosis today, afebrile no signs of resp distress on current settings Objective Last 24 Hour Vital Signs Date Time Temp Pulse Resp B/P (MAP) Pulse Ox O2 Delivery O2 Flow Rate FiO2 05/13/17 10:40 83 16 35 05/13/17 08:36 99 21 35 05/13/17 08:00 97.7 21 21 100/71 99 Mechanical Ventilator 35 97.7 05/13/17 08:00 35 05/13/17 06:34 87 17 35 05/13/17 04:00 35 05/13/17 04:00 98.9 21 22 121/60 99 Mechanical Ventilator 35 98.9 05/13/17 04:00 80 05/13/17 03:35 79 18 35 05/13/17 01:25 82 17 35 05/13/17 00:00 97.9 85 22 121/60 99 Mechanical Ventilator 35 97.9 05/13/17 00:00 79 05/13/17 00:00 35 05/12/17 23:38 80 21 35 05/12/17 21:15 75 18 35 05/12/17 20:00 72 05/12/17 20:00 97.5 74 16 126/56 99 Mechanical Ventilator 35 97.5 05/12/17 20:00 35 05/12/17 19:30 72 16 35 05/12/17 16:54 79 16 35 05/12/17 16:00 35 05/12/17 16:00 98.0 74 17 122/60 99 Mechanical Ventilator 35 98.0 05/12/17 15:59 75 05/12/17 15:17 82 18 35 05/12/17 13:23 83 17 35 Intake and Output 05/12/17 05/13/17 19:00 07:00 Intake Total 515 ml 570 ml Output Total 550 ml 250 ml Balance -35 ml 320 ml Intake Free Water 60 ml 100 ml IV Total 55 ml 110 ml Tube Feeding 360 ml 360 ml Other 40 ml Output Urine Total 550 ml 250 ml # Bowel Movements 2 3 General Appearance: no acute distress, other - bedridden vent dependent female on Vent [id number] PEEP 5 HEENT: normocephalic, atraumatic, status post trach - Portex#8, secretions small, yellow, thin Respiratory/Chest: rhonchi Cardiovascular: normal rate, other - LUE PICC intact Abdomen: normal bowel sounds, soft, non tender, other - G tube Extremities: no edema Neurologic/Psychiatric: abnormal gait, other - bedridden, rigid, poorly responsive Musculoskeletal: atrophy - BLE Current Medications Medications (Trade) Dose Ordered Sig/Sky Route PRN Reason Start Time Stop Time Status Last Admin Dose Admin Acetaminophen (Tylenol) 650 mg Q4HR PRN GT Mild Pain/Temp > 100.5 05/10/17 01:00 06/09/17 00:59 05/12/17 15:47 Amlodipine Besylate (Norvasc) 2.5 mg DAILY GT 05/05/17 09:00 06/04/17 08:59 05/12/17 08:33 Chlorhexidine Gluconate (Myra-Hex 2%) 1 applic DAILY@2000 TOPIC 05/05/17 20:00 06/04/17 19:59 05/12/17 20:09 Dextrose (Dextrose 50%) STAT PRN IV Hypoglycemia 05/05/17 16:00 06/04/17 15:59 Heparin Sodium (Porcine) (Heparin 5000 units/ml) 5,000 units EVERY 12 HOURS SUBQ 05/04/17 21:00 06/03/17 20:59 05/12/17 20:10 Insulin Aspart (NovoLOG) EVERY 6 HOURS SUBQ 05/05/17 18:00 06/04/17 16:29 05/12/17 06:02 Meropenem 1 gm/ Sodium Chloride 55 ml @ 110 mls/hr Q12HR IVPB 05/10/17 10:00 05/15/17 09:59 05/12/17 20:09 Ondansetron HCl (Zofran) 4 mg Q6H PRN IVP Nausea & Vomiting 05/04/17 20:15 06/03/17 20:14 Pantoprazole (Protonix) 40 mg DAILY IV 05/07/17 09:00 06/04/17 08:59 05/12/17 08:33 [facility] ([facility])Domi NP May 13, 2017 12:11
[2017-05-13] MEDS: Pantoprazole Inj IV SCH (12:14)
[2017-05-13] MEDS: Heparin 5000 units/ml inj SUBQ SCH ×2 (12:15→20:08)
[2017-05-13] MEDS ORDERED: Albuterol/Ipratropium 3ml neb HHN PRN (12:15)
[2017-05-13] MEDS: Meropenem 1 GM in NS 55 ML IVPB SCH ×2 (12:15→20:07)
--- NOTE | 2017-05-13 12:26 | Nephrology Progress Note ---
Assessment/Plan Problem List: (1) Chronic respiratory failure (2) Azotemia (3) Proteinuria Assessment 76 y old- Admitted with fever & Pneumonia - Has chronic Respiratory failure Mild Azotemia- Proteinuria likely Diabetic Nephropathy HypoAlbuminemia, r/o Nephrotic Syndrom Anemia , etiology?? PEG Stable from renal stand Plan Plan: Pulmonary support- AntiBiotics IV iron Anemia workup: low Iron Keep BP and BS in check Urine studies DC IV fluid Subjective ROS Limited/Unobtainable: No Objective Objective Last 24 Hour Vital Signs Date Time Temp Pulse Resp B/P (MAP) Pulse Ox O2 Delivery O2 Flow Rate FiO2 05/13/17 10:40 83 16 35 05/13/17 08:36 99 21 35 05/13/17 08:00 97.7 21 21 100/71 99 Mechanical Ventilator 35 97.7 05/13/17 08:00 35 05/13/17 06:34 87 17 35 05/13/17 04:00 35 05/13/17 04:00 98.9 21 22 121/60 99 Mechanical Ventilator 35 98.9 05/13/17 04:00 80 05/13/17 03:35 79 18 35 05/13/17 01:25 82 17 35 05/13/17 00:00 97.9 85 22 121/60 99 Mechanical Ventilator 35 97.9 05/13/17 00:00 79 05/13/17 00:00 35 05/12/17 23:38 80 21 35 05/12/17 21:15 75 18 35 05/12/17 20:00 72 05/12/17 20:00 97.5 74 16 126/56 99 Mechanical Ventilator 35 97.5 05/12/17 20:00 35 05/12/17 19:30 72 16 35 05/12/17 16:54 79 16 35 05/12/17 16:00 35 05/12/17 16:00 98.0 74 17 122/60 99 Mechanical Ventilator 35 98.0 05/12/17 15:59 75 05/12/17 15:17 82 18 35 05/12/17 13:23 83 17 35 Intake and Output 05/12/17 05/13/17 19:00 07:00 Intake Total 515 ml 570 ml Output Total 550 ml 250 ml Balance -35 ml 320 ml Intake Free Water 60 ml 100 ml IV Total 55 ml 110 ml Tube Feeding 360 ml 360 ml Other 40 ml Output Urine Total 550 ml 250 ml # Bowel Movements 2 3 Height (Feet): 4 Height (Inches): 11.00 Weight (Pounds): 118 General Appearance: no apparent distress Cardiovascular: tachycardia Respiratory/Chest: decreased breath sounds Abdomen: soft Objective no change PARVIZ ALFARO May 13, 2017 12:26
--- NOTE | 2017-05-13 13:02 | General Progress Note ---
Assessment/Plan Problem List: (1) Fever ICD Codes: R50.9 - Fever, unspecified SNOMED: 822485029 Qualifiers: Qualified Codes: R50.9 - Fever, unspecified (2) Chronic respiratory failure ICD Codes: J96.10 - Chronic respiratory failure, unspecified whether with hypoxia or hypercapnia SNOMED: 17679133 Qualifiers: Qualified Codes: J96.10 - Chronic respiratory failure, unspecified whether with hypoxia or hypercapnia (3) Diabetes mellitus ICD Codes: E11.9 - Type 2 diabetes mellitus without complications SNOMED: 76564293 (4) Acute on chronic respiratory failure ICD Codes: J96.20 - Acute and chronic respiratory failure, unspecified whether with hypoxia or hypercapnia SNOMED: 34118151 (5) Sepsis ICD Codes: A41.9 - Sepsis, unspecified organism SNOMED: 88125424 Status: progressing Assessment/Plan trach and peg lung collapse AGITATED NEEDS PULMONARY AND ID CLEARANCE BEFORE DC sepsis persistent anemia Subjective ROS Limited/Unobtainable: Yes Allergies: Coded Allergies: CODEINE (Unverified Allergy, Unknown, 01/10/17) PENICILLINS (Unverified Allergy, Unknown, 01/10/17) Objective Last 24 Hour Vital Signs Date Time Temp Pulse Resp B/P (MAP) Pulse Ox O2 Delivery O2 Flow Rate FiO2 05/13/17 12:32 91 24 35 05/13/17 12:21 97 134/60 05/13/17 10:40 83 16 35 05/13/17 08:36 99 21 35 05/13/17 08:00 97.7 21 21 100/71 99 Mechanical Ventilator 35 97.7 05/13/17 08:00 35 05/13/17 06:34 87 17 35 05/13/17 04:00 35 05/13/17 04:00 98.9 21 22 121/60 99 Mechanical Ventilator 35 98.9 05/13/17 04:00 80 05/13/17 03:35 79 18 35 05/13/17 01:25 82 17 35 05/13/17 00:00 97.9 85 22 121/60 99 Mechanical Ventilator 35 97.9 05/13/17 00:00 79 05/13/17 00:00 35 05/12/17 23:38 80 21 35 05/12/17 21:15 75 18 35 05/12/17 20:00 72 05/12/17 20:00 97.5 74 16 126/56 99 Mechanical Ventilator 35 97.5 05/12/17 20:00 35 05/12/17 19:30 72 16 35 05/12/17 16:54 79 16 35 05/12/17 16:00 35 05/12/17 16:00 98.0 74 17 122/60 99 Mechanical Ventilator 35 98.0 05/12/17 15:59 75 05/12/17 15:17 82 18 35 05/12/17 13:23 83 17 35 Intake and Output 05/12/17 05/13/17 19:00 07:00 Intake Total 515 ml 570 ml Output Total 550 ml 250 ml Balance -35 ml 320 ml Intake Free Water 60 ml 100 ml IV Total 55 ml 110 ml Tube Feeding 360 ml 360 ml Other 40 ml Output Urine Total 550 ml 250 ml # Bowel Movements 2 3 Height (Feet): 4 Height (Inches): 11.00 Weight (Pounds): 118 General Appearance: confused Cardiovascular: normal rate Abdomen: soft Fernandez Gomez MD May 13, 2017 13:02
[2017-05-13 13:10] LABS: BASOPHILS % (AUTO) 0.9 % (0.0-2.0); EOSINOPHILS % (AUTO) 7.2 % (0.0-3.0); HEMATOCRIT 32.1 % (37.0-47.0); HEMOGLOBIN 10.3 G/DL (12.0-16.0); LYMPHOCYTES % (AUTO) 11.8 % (20.0-45.0); MEAN CORPUSCULAR VOLUME 94 FL (80-99); MONOCYTES % (AUTO) 7.4 % (1.0-10.0); NEUTROPHILS % (AUTO) 72.7 % (45.0-75.0); PLATELET COUNT 481 K/UL (150-450); RED BLOOD COUNT 3.41 M/UL (4.20-5.40); RED CELL DISTRIBUTION WIDTH 14.1 % (11.6-14.8); WHITE BLOOD COUNT 15.2 K/UL (4.8-10.8)
[2017-05-13 13:39] LABS: ALANINE AMINOTRANSFERASE 43 U/L (12-78); ALBUMIN 2.3 G/DL (3.4-5.0); ALBUMIN/GLOBULIN RATIO 0.4 (1.0-2.7); ALKALINE PHOSPHATASE 190 U/L (46-116); ANION GAP 13 mmol/L (5-15); ASPARTATE AMINO TRANSFERASE 33 U/L (15-37); BILIRUBIN,TOTAL 0.2 MG/DL (0.2-1.0); BLOOD UREA NITROGEN 19 mg/dL (7-18); CALCIUM 8.8 MG/DL (8.5-10.1); CARBON DIOXIDE 20 MMOL/L (21-32); CHLORIDE 108 MMOL/L (98-107); POTASSIUM 3.8 MMOL/L (3.5-5.1); SODIUM 140 MMOL/L (136-145)
[2017-05-13] MEDS ORDERED: MEROPENEM-1 GM/50 ML IV (14:54)
--- NOTE | 2017-05-13 17:59 | Cardiac Electrophysiology PN ---
Assessment/Plan Assessment/Plan 1. Transient bradycardia only when sleeping. EF 65% No [place]. T4 normal Keep off MAHMOOD and AVN blockers 2. Hypertension, on Norvasc 2.5 mg daily. 3. Sepsis and fever due to PNA, on IV antibiotics 4. Diabetes. 5. Ventilator-dependent respiratory failure, status post tracheostomy. 6.Status post PEG Dw RN OK to DC Subjective Subjective RN at bedside. BP stable.HR stable now. Objective Last 24 Hour Vital Signs Date Time Temp Pulse Resp B/P (MAP) Pulse Ox O2 Delivery O2 Flow Rate FiO2 05/13/17 16:31 75 17 35 05/13/17 16:00 35 05/13/17 15:50 79 16 35 05/13/17 12:32 91 24 35 05/13/17 12:21 97 134/60 05/13/17 12:12 99 05/13/17 12:00 97.0 88 21 134/60 99 Mechanical Ventilator 35 97.0 05/13/17 12:00 35 05/13/17 10:40 83 16 35 05/13/17 08:36 99 21 35 05/13/17 08:00 97.7 83 21 100/71 99 Mechanical Ventilator 35 97.7 05/13/17 08:00 35 05/13/17 08:00 81 05/13/17 06:34 87 17 35 05/13/17 04:00 35 05/13/17 04:00 98.9 21 22 121/60 99 Mechanical Ventilator 35 98.9 05/13/17 04:00 80 05/13/17 03:35 79 18 35 05/13/17 01:25 82 17 35 05/13/17 00:00 97.9 85 22 121/60 99 Mechanical Ventilator 35 97.9 05/13/17 00:00 79 05/13/17 00:00 35 05/12/17 23:38 80 21 35 05/12/17 21:15 75 18 35 05/12/17 20:00 72 05/12/17 20:00 97.5 74 16 126/56 99 Mechanical Ventilator 35 97.5 05/12/17 20:00 35 05/12/17 19:30 72 16 35 Intake and Output 05/12/17 05/13/17 19:00 07:00 Intake Total 515 ml 570 ml Output Total 550 ml 250 ml Balance -35 ml 320 ml Intake Free Water 60 ml 100 ml IV Total 55 ml 110 ml Tube Feeding 360 ml 360 ml Other 40 ml Output Urine Total 550 ml 250 ml # Bowel Movements 2 3 Laboratory Tests Test 05/13/17 12:30 White Blood Count 15.2 K/UL (4.8-10.8) H Red Blood Count 3.41 M/UL (4.20-5.40) L Hemoglobin 10.3 G/DL (12.0-16.0) L Hematocrit 32.1 % (37.0-47.0) L Mean Corpuscular Volume 94 FL (80-99) Mean Corpuscular Hemoglobin 30.3 PG (27.0-31.0) Mean Corpuscular Hemoglobin Concent 32.2 G/DL (32.0-36.0) Red Cell Distribution Width 14.1 % (11.6-14.8) Platelet Count 481 K/UL (150-450) H Mean Platelet Volume 8.5 FL (6.5-10.1) Neutrophils (%) (Auto) 72.7 % (45.0-75.0) Lymphocytes (%) (Auto) 11.8 % (20.0-45.0) L Monocytes (%) (Auto) 7.4 % (1.0-10.0) Eosinophils (%) (Auto) 7.2 % (0.0-3.0) H Basophils (%) (Auto) 0.9 % (0.0-2.0) Sodium Level 140 MMOL/L (136-145) Potassium Level 3.8 MMOL/L (3.5-5.1) Chloride Level 108 MMOL/L (98-107) H Carbon Dioxide Level 20 MMOL/L (21-32) L Anion Gap 13 mmol/L (5-15) Blood Urea Nitrogen 19 mg/dL (7-18) H Creatinine 1.0 MG/DL (0.55-1.30) Estimat Glomerular Filtration Rate mL/min (>60) Glucose Level 118 MG/DL (74-106) H Calcium Level 8.8 MG/DL (8.5-10.1) Total Bilirubin 0.2 MG/DL (0.2-1.0) Aspartate Amino Transf (AST/SGOT) 33 U/L (15-37) Alanine Aminotransferase (ALT/SGPT) 43 U/L (12-78) Alkaline Phosphatase 190 U/L (46-116) H Pro-B-Type Natriuretic Peptide 811 pg/mL (0-125) H Total Protein 7.6 G/DL (6.4-8.2) Albumin 2.3 G/DL (3.4-5.0) L Globulin 5.3 g/dL Albumin/Globulin Ratio 0.4 (1.0-2.7) L Objective HEAD AND NECK: Status post tracheostomy. LUNGS: Coarse rhonchi. CARDIOVASCULAR: Regular S1 and S2 with no gallop. ABDOMEN: Status post G-tube. EXTREMITIES: No pitting edema. SUNDEEP NOBLE May 13, 2017 17:59
[2017-05-13 20:00] VITALS: BP 113/78
[2017-05-13] MEDS: Dyna-Hex 2% Top Sol 2oz TOPIC SCH (20:00)
[2017-05-13] MEDS: Acetaminophen 650mg/20.3ml GT PRN (23:52)
[2017-05-14] VITALS: BP 139/62
--- NOTE | 2017-05-14 09:24 | General Progress Note ---
Assessment/Plan Assessment/Plan #. Anemia due to underlying chronic disease. --> Anemia workup reviewed. Iron 19, TIBC 204, Folate 39.5, Vit B12 941 --> Continue to closely monitor. --> Hemoglobin goal is above 7. Does not appear to have any evidence of hemolysis. --> Hemoglobin has been improving past few days, does not required prbc. Hgb now >10 --> No occult blood. #. Ventilator-dependent respiratory failure. Started on antibiotic, broad spectrum by Dr. Gonzalez. --> continue to monitor closely. --> Remains on vent/trach #. Methicillin-resistant Staphylococcus aureus in the past. --> On Antibiotics. #. Transaminitis. #. Leukocytosis appears to be significant and current leukocyte count elevated with neutrophils 84% and therefore is elevated due to underlying infection. --> Currently, is on vancomycin. Broad spectrum antibiotics. Dr. Gonzalez, has evaluated the patient. --> Resolved, continue to monitor. --> Followup by ID #. Pneumonia. --> On Broad-spectrum antibiotics. --> monitor closely. Subjective Date patient seen: May 13, 2017 Constitutional: Denies: no symptoms, chills, diaphoresis, fever, malaise, weakness, other HEENT: Denies: no symptoms, eye pain, blurred vision, tearing, double vision, ear pain, ear discharge, nose pain, nose congestion, throat pain, throat swelling, mouth pain, mouth swelling, other Cardiovascular: Denies: no symptoms, chest pain, edema, irregular heart rate, lightheadedness, palpitations, syncope, other Respiratory: Denies: no symptoms, cough, orthopnea, shortness of breath, SOB with excertion, SOB at rest, sputum, stridor, wheezing, other Gastrointestinal/Abdominal: Denies: no symptoms, abdomen distended, abdominal pain, black stools, tarry stools, blood in stool, constipated, diarrhea, difficulty swallowing, nausea, poor appetite, poor fluid intake, rectal bleeding , vomiting, other Genitourinary: Denies: no symptoms, burning, discharge, frequency, flank pain, hematuria, incontinence, pain, urgency, other Neurologic/Psychiatric: Denies: no symptoms, anxiety, depressed, emotional problems, headache, numbness, paresthesia, pre-existing deficit, seizure, tingling, tremors, weakness, other Hematologic/Lymphatic: Reports: anemia Allergies: Coded Allergies: CODEINE (Unverified Allergy, Unknown, 01/10/17) PENICILLINS (Unverified Allergy, Unknown, 01/10/17) Subjective Patient combative and agitated. Pending discharge. Objective Last 24 Hour Vital Signs Date Time Temp Pulse Resp B/P (MAP) Pulse Ox O2 Delivery O2 Flow Rate FiO2 05/14/17 00:00 98.7 75 18 139/62 100 Mechanical Ventilator 35 98.7 05/14/17 00:00 35 05/13/17 23:52 98.9 05/13/17 23:17 81 20 35 05/13/17 20:45 111 20 35 05/13/17 20:00 35 05/13/17 20:00 77 05/13/17 20:00 98.9 75 16 113/78 99 Mechanical Ventilator 35 98.9 05/13/17 19:16 76 18 35 05/13/17 16:31 75 17 35 05/13/17 16:00 78 05/13/17 16:00 35 05/13/17 15:50 79 16 35 05/13/17 12:32 91 24 35 05/13/17 12:21 97 134/60 05/13/17 12:12 99 05/13/17 12:00 97.0 88 21 134/60 99 Mechanical Ventilator 35 97.0 05/13/17 12:00 35 05/13/17 10:40 83 16 35 Intake and Output 05/13/17 05/14/17 19:00 07:00 Intake Total 60 ml 150 ml Output Total 350 ml Balance -290 ml 150 ml Tube Feeding 60 ml 150 ml Output Urine Total 350 ml Laboratory Tests 05/13/17 12:30: White Blood Count 15.2H, Red Blood Count 3.41L, Hemoglobin 10.3L, Hematocrit 32.1L, Mean Corpuscular Volume 94, Mean Corpuscular Hemoglobin 30.3, Mean Corpuscular Hemoglobin Concent 32.2, Red Cell Distribution Width 14.1, Platelet Count 481H, Mean Platelet Volume 8.5, Neutrophils (%) (Auto) 72.7, Lymphocytes ( %) (Auto) 11.8L, Monocytes (%) (Auto) 7.4, Eosinophils (%) (Auto) 7.2H, Basophils (%) (Auto) 0.9, Sodium Level 140, Potassium Level 3.8, Chloride Level 108H, Carbon Dioxide Level 20L, Anion Gap 13, Blood Urea Nitrogen 19H, Creatinine 1.0, Estimat Glomerular Filtration Rate , Glucose Level 118H, Calcium Level 8.8, Total Bilirubin 0.2, Aspartate Amino Transf (AST/SGOT) 33, Alanine Aminotransferase (ALT/SGPT) 43, Alkaline Phosphatase 190H, Pro-B-Type Natriuretic Peptide 811H, Total Protein 7.6, Albumin 2.3L, Globulin 5.3, Albumin /Globulin Ratio 0.4L Height (Feet): 4 Height (Inches): 11.00 Weight (Pounds): 118 General Appearance: agitated, combative Respiratory/Chest: decreased breath sounds Abdomen: non tender, soft Edema: trace edema Reinier Lou May 14, 2017 09:24
--- NOTE | 2017-05-15 12:26 | Discharge Summary ---
Discharge Summary Hospital Course Date of Admission May 04, 2017 at 18:15 Date of Discharge May 14, 2017 at 00:15 Admitting Diagnosis fever, sepsis HPI Antionette Sanchez is a 76 year old female who was admitted on May 04, 2017 at 18: 15 for Fever, Sepsis Hospital Course [id number] Discharge Discharge Disposition Patient was discharged to SNF/Subacute Facility(03) Discharge Diagnoses: Genesis Howell NP May 15, 2017 12:26
--- NOTE | 2017-05-16 03:15 | Discharge Summary 2 SIG ---
DATE OF ADMISSION: 05/04/2017 DATE OF DISCHARGE: 05/14/2017 CONSULTS: 1. Nolberto Baker M.D. 2. Reinier Lou M.D. 3. Francisco Gonzalez M.D. 4. Adam Blanca M.D. 5. Rusty Woods M.D. BRIEF HOSPITAL COURSE: The patient is a 76-year-old female, who [facility] for further evaluation. She has history significant for hypertension, constipation, GERD, iron deficiency anemia, diabetes mellitus, organic brain syndrome, urinary incontinence, and mood disorder. She also has chronic respiratory failure, on trach and vent. On evaluation at ED, blood work showed significant leukocytosis. WBC was 26, hemoglobin was 8.9, and hematocrit 27. Electrolytes were stable. She had chest x-ray done that showed bilateral pleural effusions with bilateral pulmonary infiltrates. EKG was in normal sinus rhythm. She had difficult IV access. A right femoral central line was placed. She was started on levofloxacin and vancomycin and was admitted to [facility] for pneumonia, leukocytosis, fever, and sepsis. She was followed by Infectious Diseases specialist. The patient has history of MRSA infection before. She was started on vancomycin and Azactam. Influenza swab was negative. The patient was anemic. Anemia workup showed iron of 19, TIBC 204, and folate was 39. The patient's anemia is secondary to chronic disease and leukocytosis showed elevated neutrophils secondary to underlying infection. Following day, repeat chest x-ray done showed a complete white out of the left hemithorax with shift of mediastinal structures to the left suggesting left lung collapse. The patient was advised to keep left lung elevated, increase tidal volume, and plan for bronchoscopy if no improvement in few days. 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 She had episode of bradycardia down to 45. Thyroid, TSH, and free T4 were normal. Echocardiogram done showed EF of 60% to 65% with no evidence of left ventricular hypertrophy. No evidence of pericardial or pleural effusion. Repeat chest x-ray showed re-expansion of the left lung. Blood cultures did not isolate any growth. Sputum culture showed growth off Providencia and Morganella. Antibiotic was switched to meropenem. Bradycardia was transient and occurred only during sleep. Right femoral catheter was eventually discontinued and a new PICC line was inserted to the left arm. She was continued on IV antibiotics. Subsequent chest x-rays showed improved CHF/interstitial edema. She was eventually discharged back to [place]. FINAL DIAGNOSES: 1. Sepsis. 2. Pneumonia with Providencia and Morganella. 3. Acute on chronic respiratory failure. 4. Diabetes mellitus. 5. Transient bradycardia. 6. Hypertension. 7. Status post percutaneous endoscopic gastrostomy. 8. Chronic obstructive pulmonary disease. 9. Anemia of chronic disease. 10. Right sacral deep tissue injury pressure ulcer, present on admission. DISPOSITION: The patient was discharged back to [place]. DISCHARGE MEDICATIONS: Continue with meropenem 1 g IV q.12 h. for six more days. Refer to medication list. Fernandez Gomez M.D. I have been assigned to dictate discharge summary on this account and I was not involved in the patient's management. Genesis Howell N.P. DR: Allyson JOB#: [id number] CC: TAMMY
== END 2017-05-14 00:15 | DRG 720 ==
LOC: EDBD 16:10 → EDUNIT# 16:10 → EMR 16:50 → 2W 18:15 → EDBEDREQ 18:56 → 2W 23:16
PROC: 06HM33Z Insertion of Infusion Device into Right Femoral Vein, Percutaneous Approach (ICD-10-PCS; principal; 2017-05-04)
PROC: 5A1955Z Respiratory Ventilation, Greater than 96 Consecutive Hours (ICD-10-PCS; principal; 2017-05-04)
PROC: B548ZZA Ultrasonography of Superior Vena Cava, Guidance (ICD-10-PCS; 2017-05-08)
PROC: 02HV33Z Insertion of Infusion Device into Superior Vena Cava, Percutaneous Approach (ICD-10-PCS; 2017-05-08)
DX: A41.9 Sepsis, unspecified organism (principal); J96.20 Acute and chronic respiratory failure, unspecified whether with hypoxia or hypercapnia; J18.9 Pneumonia, unspecified organism; Z99.11 Dependence on respirator [ventilator] status; J44.0 Chronic obstructive pulmonary disease with (acute) lower respiratory infection; E46 Unspecified protein-calorie malnutrition; Z93.0 Tracheostomy status; E11.21 Type 2 diabetes mellitus with diabetic nephropathy; E86.0 Dehydration; R13.10 Dysphagia, unspecified; Z93.1 Gastrostomy status; I10 Essential (primary) hypertension; D50.9 Iron deficiency anemia, unspecified; F09 Unspecified mental disorder due to known physiological condition; F39 Unspecified mood [affective] disorder; Z88.0 Allergy status to penicillin; R00.1 Bradycardia, unspecified; I27.20 Pulmonary hypertension, unspecified; J98.11 Atelectasis
CPT/HCPCS: 36415; 36569; 71045; 76937; 80053; 80061; 80069; 80202; 81003; 81050; 82550; 82553; 82607; 82728; 82746; 82962; 82977; 83036; 83540; 83550; 83605; 83735; 83880; 84100; 84156; 84439; 84443; 84484; 84550; 85007; 85025; 85651; 86140; 86710; 87040; 87070; 87181; 87205; 93005; 93306; 93970; 94002; 94003; 99285; J1815

== ENCOUNTER 2018-03-24 21:26 | Emergency (ER) | payer MEDICARE, MEDICAID ==
[~2018-03-24] VITALS: Ht 160 cm; Wt 51.3 kg
[2018-03-24 21:26] VITALS: BP 136/65
[~2018-03-24 21:26] MED LIST changes: +CRANBERRY425 MG GT; +DEPAKENE250 MG/5 M GT; +DUONEB 0.5-3(2.53 ML IN-LINE; +FAMOTIDINE20 MG GT; +FERROUS SU220 MG/53 GT; +MEROPENEM-1 GM/50 ML IV; +MULTIVITAMINS1 EAC8 GT; +MYLANTA II30 ML GT; +OSMOLITE 1.21500 ML PO; +OXYBUTYNIN CHLOR5 M1 GT
--- NOTE | 2018-03-24 21:26 | NUR ---
ED Nurse Note: Trach patient presents with bulge in abdominal area with h/o hernia. Patient on ventilator RT at bedside.
[2018-03-24] MEDS ORDERED: Sodium Chloride 500ML 500 ML IV ONE (21:56)
[2018-03-24] MEDS ORDERED: Isovue-300 100ml vial INJ PRN (22:00)
--- NOTE | 2018-03-24 22:00 | NUR ---
ED Nurse Note: Patient unwilling to cooperate with IV insertion, patient throwing equipment off of bed and signalling vulgarities. ERMD informed and ordered anxiety medication.
[2018-03-24] MEDS ORDERED: LORazepam Inj 2mg/ml 1ml IM ONE (23:00)
--- NOTE | 2018-03-24 23:02 | NUR ---
ED Nurse Note: Patient willing to have labs drawn and IV started with oven laborer present.
--- NOTE | 2018-03-24 23:02 | NUR ---
ED Nurse Note: Patient willi
[2018-03-25 00:13] LABS: BASOPHILS % (AUTO) 1.2 % (0.0-2.0); HEMATOCRIT 32.7 % (37.0-47.0); HEMOGLOBIN 10.9 G/DL (12.0-16.0); LYMPHOCYTES % (AUTO) 18.6 % (20.0-45.0); MEAN CORPUSCULAR VOLUME 96 FL (80-99); MONOCYTES % (AUTO) 7.5 % (1.0-10.0); NEUTROPHILS % (AUTO) 63.7 % (45.0-75.0); PLATELET COUNT 262 K/UL (150-450); RED BLOOD COUNT 3.41 M/UL (4.20-5.40); RED CELL DISTRIBUTION WIDTH 11.7 % (11.6-14.8); WHITE BLOOD COUNT 11.3 K/UL (4.8-10.8)
[2018-03-25 00:18] LABS: ANION GAP 8 mmol/L (5-15); BLOOD UREA NITROGEN 34 mg/dL (7-18); CALCIUM 9.2 MG/DL (8.5-10.1); CARBON DIOXIDE 28 MMOL/L (21-32); CHLORIDE 106 MMOL/L (98-107); POTASSIUM 5.1 MMOL/L (3.5-5.1); SODIUM 142 MMOL/L (136-145)
[2018-03-25 00:22] LABS: ALANINE AMINOTRANSFERASE 29 U/L (12-78); ALBUMIN 2.9 G/DL (3.4-5.0); ALBUMIN/GLOBULIN RATIO 0.7 (1.0-2.7); ALKALINE PHOSPHATASE 149 U/L (46-116); ASPARTATE AMINO TRANSFERASE 34 U/L (15-37); BILIRUBIN,TOTAL 0.3 MG/DL (0.2-1.0)
--- NOTE | 2018-03-25 00:30 | NUR ---
ED Nurse Note: Urinary catheter started with 2 RN assist along with ER-tech. No urine out put seen.
--- NOTE | 2018-03-25 01:10 | NUR ---
ED Nurse Note: Still no urin out put in BERT travis informed/
[2018-03-25 02:48] LABS: APPEARANCE,URINE CLEAR; BILIRUBIN, URINE NEGATIVE (NEGATIVE); COLOR,URINE PALE YELLOW; GLUCOSE, URINE (UA) NEGATIVE (NEGATIVE); KETONES,URINE NEGATIVE (NEGATIVE); LEUKOCYTE ESTERASE ,URINE 1+ (NEGATIVE); NITRITE,URINE NEGATIVE (NEGATIVE); PH,URINE 8 (4.5-8.0); PROTEIN,URINE 3+ (NEGATIVE); UROBILINOGEN,URINE NORMAL MG/DL (0.0-1.0)
--- NOTE | 2018-03-25 03:02 | NUR ---
[facility] was called and spoke to Simba. Transportation has been set up with a 0500 ETA.
--- NOTE | 2018-03-25 04:44 | Emergency Room Report ---
History of Present Illness General Chief Complaint: General Complaint Source: Medical Record Present Illness HPI 77-year-old female presents ED for evaluation. [facility] Noted to have a hernia as by nursing staff today. Patient has history of hernia. Patient has MR and is nonverbal at baseline. Has trach and is on ventilator. No signs of distress. No nausea or vomiting. Passing stool and flatus. No other aggravating relieving factors. Denies any other associated symptoms Allergies: Coded Allergies: CODEINE (Unverified Allergy, Unknown, 01/10/17) PENICILLINS (Unverified Allergy, Unknown, 01/10/17) Patient History Past Medical History: DM, HTN, asthma, other - MR Past Surgical History: other - trach Pertinent Family History: none Social History: Denies: smoking, alcohol use, drug use Last Menstrual Period: n/a Now: No Immunizations: UTD Reviewed Nursing Documentation: PMH: Agreed; PSxH: Agreed Nursing Documentation-PMH Past Medical History: No History, Except For Hx Hypertension: Yes Hx Pacemaker: No - ANEMIA Hx Asthma: Yes Hx COPD: Yes - trach, Hx Diabetes: Yes Hx Cancer: No Hx Gastrointestinal Problems: Yes - G-TUBE Hx Neurological Problems: Yes - mental retardation Hx Alzheimer's Disease: Yes Review of Systems All Other Systems: limited Physical Exam Vital Signs Date Time Temp Pulse Resp B/P (MAP) Pulse Ox O2 Delivery O2 Flow Rate FiO2 03/24/18 21:21 98.4 84 17 136/65 98 Room Air 03/24/18 21:55 35 Sp02 EP Interpretation: reviewed, normal General Appearance: other - nonverbal Head: normocephalic Eyes: bilateral eye normal inspection, bilateral eye PERRL ENT: normal ENT inspection Neck: tracheotomy Respiratory: chest non-tender, lungs clear, normal breath sounds, speaking full sentences Cardiovascular #1: regular rate, rhythm, no edema Gastrointestinal: normal bowel sounds, non tender, soft, non-distended, no guarding, no rebound, hernia - umbilical hernia - reducible Rectal: deferred Genitourinary: no CVA tenderness Musculoskeletal: normal inspection Neurologic: other - nonverbal Psychiatric: other - nonverbal Skin: normal inspection Lymphatic: normal inspection Medical Decision Making Diagnostic Impression: Primary Impression: Umbilical hernia Qualified Codes: K42.9 - Umbilical hernia without obstruction or gangrene ER Course Hospital Course 77 yo F presents with swelling to abdomen. h/o hernia Differential diagnosis includes-appendicitis, cholecystitis, small bowel obstruction, gastritis, Clinical course Patient placed on stretcher. After initial history, physical exam reveals female in no acute distress. On exam there is a swelling near the umbilicus. No induration. No erythema. Consistent with hernia. Reducible. I ordered labs, CT CT shows a umbilical hernia with loops of bowel but no signs of incarceration or obstruction. Discussed with surgery Dr. Pitts. Clinically there is no signs of obstruction or incarceration as it is reducible. patient can be evaluated as outpatient. Discussed with Dr. Gomez. patient will be discharged back to SNF I feel this is a highly complex case requiring extensive working including EKG/ Rhythm strip, Xray/CT/US, Blood/urine lab work, repeat exams while in ED, and administration of strong opiates/narcotics for pain control, admission to hospital or close patient follow up. Diagnosis - umbilical hernia Stable and discharged to SNF. Followup with PMD/surgery. Return to ED if symptoms recur or worsen Labs Test 03/24/18 23:50 03/25/18 02:34 White Blood Count 11.3 K/UL (4.8-10.8) Red Blood Count 3.41 M/UL (4.20-5.40) Hemoglobin 10.9 G/DL (12.0-16.0) Hematocrit 32.7 % (37.0-47.0) Mean Corpuscular Volume 96 FL (80-99) Mean Corpuscular Hemoglobin 31.9 PG (27.0-31.0) Mean Corpuscular Hemoglobin Concent 33.3 G/DL (32.0-36.0) Red Cell Distribution Width 11.7 % (11.6-14.8) Platelet Count 262 K/UL (150-450) Mean Platelet Volume 10.9 FL (6.5-10.1) Neutrophils (%) (Auto) 63.7 % (45.0-75.0) Lymphocytes (%) (Auto) 18.6 % (20.0-45.0) Monocytes (%) (Auto) 7.5 % (1.0-10.0) Eosinophils (%) (Auto) 9.0 % (0.0-3.0) Basophils (%) (Auto) 1.2 % (0.0-2.0) Sodium Level 142 MMOL/L (136-145) Potassium Level 5.1 MMOL/L (3.5-5.1) Chloride Level 106 MMOL/L (98-107) Carbon Dioxide Level 28 MMOL/L (21-32) Anion Gap 8 mmol/L (5-15) Blood Urea Nitrogen 34 mg/dL (7-18) Creatinine 1.0 MG/DL (0.55-1.30) Estimat Glomerular Filtration Rate mL/min (>60) Glucose Level 107 MG/DL (74-106) Calcium Level 9.2 MG/DL (8.5-10.1) Total Bilirubin 0.3 MG/DL (0.2-1.0) Aspartate Amino Transf (AST/SGOT) 34 U/L (15-37) Alanine Aminotransferase (ALT/SGPT) 29 U/L (12-78) Alkaline Phosphatase 149 U/L (46-116) Total Protein 7.2 G/DL (6.4-8.2) Albumin 2.9 G/DL (3.4-5.0) Globulin 4.3 g/dL Albumin/Globulin Ratio 0.7 (1.0-2.7) Lipase 74 U/L (73-393) Urine Color Pale yellow Urine Appearance Clear Urine pH 8 (4.5-8.0) Urine Specific [place] 1.010 (1.005-1.035) Urine Protein 3+ (NEGATIVE) Urine Glucose (UA) Negative (NEGATIVE) Urine Ketones Negative (NEGATIVE) Urine Blood 4+ (NEGATIVE) Urine Nitrite Negative (NEGATIVE) Urine Bilirubin Negative (NEGATIVE) Urine Urobilinogen Normal MG/DL (0.0-1.0) Urine Leukocyte Esterase 1+ (NEGATIVE) Urine RBC 20-30 /HPF (0 - 2) Urine WBC 2-4 /HPF (0 - 2) Urine Squamous Epithelial Cells Few /LPF (NONE/OCC) Urine Bacteria Few /HPF (NONE) Urine Yeast Few /HPF (NONE) CT/MRI/US Diagnostic Results CT/MRI/US Diagnostic Results : Imaging Test Ordered: CT A/P Impression Evaluation is limited secondary to a large amount of motion artifact. Umbilical hernia containing multiple small bowel loops. There is mild infiltration of the fat within and adjacent to the hernia. A strangulated hernia cannot be excluded. No definite evidence for significant bowel wall thickening. No evidence for significant bowel loop dilation to suggest an obstructive process. Last Vital Signs Date Time Temp Pulse Resp B/P (MAP) Pulse Ox O2 Delivery O2 Flow Rate FiO2 03/25/18 02:41 87 13 35 03/24/18 21:55 Mechanical Ventilator 03/24/18 21:26 98.4 136/65 97 Status: improved Disposition: [facility] Condition: Serious Patient Instructions: Ventral Hernia Geo Lopes MD Mar 25, 2018 04:44
--- NOTE | 2018-03-25 05:06 | NUR ---
ED Nurse Note: Patient ready for transport back to SNF, patient transported by critical care transport on ventilator. Patient appears to be calm and no s/s of acute distress, patient vss.
[2018-03-25 05:10] VITALS: BP 143/69
--- NOTE | 2018-03-25 06:30 | NUR ---
ED Nurse Note: Received call from Cathi CLARK at [facility] and gave report of events of oraight's visit.
--- NOTE | 2018-03-25 13:11 | Diagnostic Imaging Report ---
Clinical Indication: Abdominal pain Technique: No oral contrast utilized, per emergency room physician request IV administration nonionic contrast. Venous phase spiral acquisition obtained through the abdomen and pelvis. Multiplanar reconstructions were generated. Total dose length product 763.61 mGycm. CTDIvol(s) 14.12 mGy. Dose reduction achieved using automated exposure control Comparison: none Findings: There is considerable image degradation due to respiratory motion artifact There is a large paraesophageal hiatal hernia, contains approximately one third of the stomach. There is a gastrostomy, the balloon and tip of which are in good position. The shaft of gastrostomy immediately adjacent to the transverse colon, does not definitely violate the wall but appears very close to it. There is a ventral hernia which contains multiple small bowel loops. Small bowel entering and exiting the hernia sac or proximal to but do not appear to be dilated. Small bowel loops within the hernia sac are mildly prominent. There is mild infiltration of the mesenteric fat within the hernia sac. The appendix is not definitely visualized, but no findings to suggest acute appendicitis are evident. No evidence of diverticulosis or diverticulitis. No free or loculated intraperitoneal gas or fluid. The gallbladder is surgically absent. The liver, bile ducts, pancreas, spleen, adrenals are all unremarkable. The kidneys demonstrate on the right subcentimeter low-attenuation lesions which are too small to characterize. Note that visualization is significantly degraded by motion artifact. No retroperitoneal or mesenteric mass or adenopathy. There is a cystic lesion of the right adnexa which measures 6 cm long axis dimension with one or more septations. A Conte catheter is in the bladder, which is nondistended. The uterus and left adnexal region are unremarkable. The included lower thorax demonstrates small pericardial effusion. There are groundglass opacities within the posterior lungs bilaterally. The bones demonstrate mild thoracolumbar scoliotic deformity Impression: Limited exam, due to motion artifact Umbilical hernia with multiple small bowel loops. No definite evidence of obstruction, but mild infiltration of the fat within the hernia sac does raise the possibility of strangulation Gastrostomy tube in place. Note shaft immediately adjacent to but appearing not to traverse the transverse colon 6 cm right adnexal cystic mass. Gynecological consultation recommended Moderate to large paraesophageal hiatal hernia Small pericardial effusion Basilar pulmonary groundglass opacities, nonspecific, may reflect pulmonary edema among other possibilities Right renal subcentimeter low-attenuation lesions, too small to characterize, most likely benign simple cortical cysts. No further follow-up necessary. Other findings as noted, including thoracolumbar mild scoliosis, Conte catheter, prior cholecystectomy This agrees with the preliminary interpretation provided overnight by [facility] teleradiology service. The CT scanner at [facility] is accredited by the [employer] and the scans are performed using protocols designed to limit radiation exposure to as low as reasonably achievable to attain images of sufficient resolution adequate for diagnostic evaluation.
== END 2018-03-25 05:10 ==
LOC: EDBD 21:26 → EMR 22:05
DX: K42.9 Umbilical hernia without obstruction or gangrene (principal); I10 Essential (primary) hypertension; J44.9 Chronic obstructive pulmonary disease, unspecified; E11.9 Type 2 diabetes mellitus without complications; Z93.1 Gastrostomy status; Z93.0 Tracheostomy status; Z99.81 Dependence on supplemental oxygen; D64.9 Anemia, unspecified; G30.9 Alzheimer's disease, unspecified; F02.80 Dementia in other diseases classified elsewhere, unspecified severity, without behavioral disturbance, psychotic disturbance, mood disturbance, and anxiety; Z88.5 Allergy status to narcotic agent; Z88.0 Allergy status to penicillin
CPT/HCPCS: 36415; 74177; 80053; 81003; 83690; 85025; 87086; 94002; 94664; 96372; 99285; J7040; Q9967

== ENCOUNTER 2018-06-21 21:06 | Inpatient (IN) | payer MEDICARE, MEDICAID ==
[~2018-06-21] VITALS: Ht 137.2 cm; Wt 57.8 kg
[2018-06-21] MEDS ORDERED: ZOFRAN4 M3 ORAL (21:09)
[2018-06-21 21:15] VITALS: BP 142/61
--- NOTE | 2018-06-21 21:15 | NUR ---
ED Nurse Note: Patient was brought by RA from [facility], due to vomiting since this morning. Patient has tracheostomy type: PORTEX # 8 CUFF, Gtube on her RUQ, skin is dry intact, warm to touch. will continue to monitor.
--- NOTE | 2018-06-21 21:34 | Emergency Room Report ---
History of Present Illness General Chief Complaint: Vomiting Source: Patient, Medical Record, EMS Present Illness HPI This is a 77-year-old female with a history of acute and chronic respiratory failure with tracheostomy. She also has a feeding tube. She presents with chief complaint of nausea and vomiting. Onset today. Does have some cough. No fever chills. No diarrhea. Pain is diffuse. History is limited because patient is nonverbal secondary to tracheostomy. Allergies: Coded Allergies: CODEINE (Unverified Allergy, Unknown, 01/10/17) PENICILLINS (Unverified Allergy, Unknown, 01/10/17) Patient History Past Medical History: see triage record, old chart reviewed Past Surgical History: other Pertinent Family History: none Social History: Denies: smoking Now: No Immunizations: other Reviewed Nursing Documentation: PMH: Agreed; PSxH: Agreed Nursing Documentation-PMH Past Medical History: No History, Except For Hx Hypertension: Yes Hx Pacemaker: No - ANEMIA Hx Asthma: Yes Hx COPD: Yes Hx Diabetes: Yes Hx Cancer: No Hx Gastrointestinal Problems: Yes - G-TUBE Hx Neurological Problems: Yes - mental retardation Hx Alzheimer's Disease: Yes Review of Systems Eye: Denies: eye pain, blurred vision ENT: Denies: ear pain, nose congestion, throat swelling Respiratory: Reports: cough; Denies: shortness of breath Cardiovascular: Denies: chest pain, palpitations Gastrointestinal: Reports: abdominal pain, nausea, vomiting; Denies: diarrhea Musculoskeletal: Denies: back pain, joint pain Skin: Denies: rash Neurological: Denies: headache, numbness Endocrine: Denies: increased thirst, increased urine Hematologic/Lymphatic: Denies: easy bruising All Other Systems: negative except mentioned in HPI Physical Exam Vital Signs Date Time Temp Pulse Resp B/P (MAP) Pulse Ox O2 Delivery O2 Flow Rate FiO2 06/21/18 20:58 99.0 77 26 142/61 98 Room Air vitals unremarkable Sp02 EP Interpretation: reviewed, normal General Appearance: well appearing, no apparent distress, alert Head: normocephalic, atraumatic Eyes: bilateral eye PERRL, bilateral eye EOMI ENT: hearing grossly normal, normal pharynx, other - Tracheostomy Neck: full range of motion, supple, no meningismus, tracheotomy Respiratory: chest non-tender, rhonchi - Scatter Cardiovascular #1: regular rate, rhythm, no murmur Gastrointestinal: no mass, no organomegaly, no bruit, non-distended, abnormal bowel sounds - Hyperactive, tenderness - Umbilical hernia. No obstruction Musculoskeletal: back normal, gait/station normal, normal range of motion Psychiatric: mood/affect normal Skin: warm/dry Medical Decision Making Diagnostic Impression: Primary Impression: UTI (urinary tract infection) Qualified Codes: N30.00 - Acute cystitis without hematuria Additional Impression: Hiatal hernia ER Course Patient presents with vomiting. This is most likely secondary to her large size hiatal hernia with reflux. No evidence of obstruction. She does have a UTI. I discussed the case with Dr. Delgadillo who will admit. Lab Results Impression labs unremarkable CT/MRI/US Diagnostic Results CT/MRI/US Diagnostic Results : Imaging Test Ordered: CT abdomen and pelvis Impression Read by radiologist. Large hiatal hernia with reflux. Ventral hernia. Last Vital Signs Date Time Temp Pulse Resp B/P (MAP) Pulse Ox O2 Delivery O2 Flow Rate FiO2 06/21/18 20:58 99.0 77 26 142/61 98 Room Air Status: improved Disposition: ADMITTED INPATIENT Condition: Serious Brett Newton MD Jun 21, 2018 21:34
[2018-06-21 22:39] LABS: BASOPHILS % (AUTO) 1.3 % (0.0-2.0); EOSINOPHILS % (AUTO) 7.2 % (0.0-3.0); HEMATOCRIT 31.8 % (37.0-47.0); HEMOGLOBIN 10.2 G/DL (12.0-16.0); LYMPHOCYTES % (AUTO) 17.6 % (20.0-45.0); MEAN CORPUSCULAR VOLUME 94 FL (80-99); NEUTROPHILS % (AUTO) 64.9 % (45.0-75.0); PLATELET COUNT 231 K/UL (150-450); RED BLOOD COUNT 3.39 M/UL (4.20-5.40); RED CELL DISTRIBUTION WIDTH 11.8 % (11.6-14.8); WHITE BLOOD COUNT 10.3 K/UL (4.8-10.8)
[2018-06-21 22:48] LABS: ANION GAP 6 mmol/L (5-15); BLOOD UREA NITROGEN 27 mg/dL (7-18); CARBON DIOXIDE 32 MMOL/L (21-32); CHLORIDE 104 MMOL/L (98-107); CREATININE 0.9 MG/DL (0.55-1.30); POTASSIUM 4.9 MMOL/L (3.5-5.1); SODIUM 142 MMOL/L (136-145)
[2018-06-21 22:50] LABS: APPEARANCE,URINE CLEAR; BILIRUBIN, URINE NEGATIVE (NEGATIVE); COLOR,URINE PALE YELLOW; GLUCOSE, URINE (UA) NEGATIVE (NEGATIVE); KETONES,URINE NEGATIVE (NEGATIVE); LEUKOCYTE ESTERASE ,URINE NEGATIVE (NEGATIVE); NITRITE,URINE NEGATIVE (NEGATIVE); PH,URINE 9 (4.5-8.0); PROTEIN,URINE NEGATIVE (NEGATIVE); UROBILINOGEN,URINE NORMAL MG/DL (0.0-1.0)
[2018-06-21 22:53] LABS: ALANINE AMINOTRANSFERASE 18 U/L (12-78); ALBUMIN 2.5 G/DL (3.4-5.0); ALBUMIN/GLOBULIN RATIO 0.6 (1.0-2.7); ALKALINE PHOSPHATASE 121 U/L (46-116); ASPARTATE AMINO TRANSFERASE 25 U/L (15-37); BILIRUBIN,TOTAL 0.3 MG/DL (0.2-1.0)
[2018-06-21] MEDS ORDERED: cefTRIAXone 1 GM in NS 55 ML IVPB ONE (23:15)
[2018-06-21 23:58] VITALS: BP 142/61
--- NOTE | 2018-06-21 23:58 | NUR ---
ED Nurse Note: Patient was DC from ventilator, tolerate procedure well, O2 sat 100% at 15L.
[2018-06-22 00:59] VITALS: BP 145/67
--- NOTE | 2018-06-22 01:32 | NUR ---
Note sveta in ED - 06/22/18 at 0133 by [email or web address] ED Nurse Note: patient keep complaining of severe pain ER MD george.
[2018-06-22 02:02] VITALS: BP 145/67
--- NOTE | 2018-06-22 02:04 | NUR ---
ED Nurse Note: Patient has O2 sat 100% on 10 L.
--- NOTE | 2018-06-22 04:23 | NUR ---
ED Nurse Note: Patient was admited to Tele, due to vomiting. AAO x4, VSS at this time. Patient does not have any belongings. Patient was transfered by ACLS protocol.
--- NOTE | 2018-06-22 04:30 | NUR ---
NURSE NOTES: received pt from Er. pt in stable condition, no acute distress during transfer. safety precautions in place will continue to monitor.
[2018-06-22] MEDS ORDERED: Mylanta II UD 30ml GT PRN (05:45)
[2018-06-22] MEDS ORDERED: Acetaminophen Soln 160mg/5ml ORAL PRN (05:45)
[2018-06-22] MEDS ORDERED: Acetaminophen 650mg/20.3ml ORAL PRN (06:15)
--- NOTE | 2018-06-22 06:30 | NUR ---
NURSE NOTES: received orders from orders carried out.
--- NOTE | 2018-06-22 07:50 | NUR ---
HAND-OFF: Report given to AMBER Lainez.pt in stable condition
[2018-06-22 08:00] VITALS: BP 134/58
--- NOTE | 2018-06-22 08:02 | NUR ---
NURSE NOTES: Report received from AMBER Long. Observed patient in bed. Open eyes but non-verbal. With trach collar with 10L of oxygen with no distress noted. GT site intact with ongoing feeding. HOB elevated. IV site intact and patent. Bed in lowest position. Call light within reach. Will continue to monitor.
[2018-06-22] MEDS: Docusate 250mg cap ORAL SCH ×2 (08:44→08:53)
[2018-06-22] MEDS: Oxybutynin 5mg tab GT SCH ×2 (08:44→08:52)
[2018-06-22] MEDS: Ascorbic Acid 500mg tab GT SCH ×2 (08:44→08:53)
[2018-06-22] MEDS: Memantine 10mg tab GT SCH ×2 (08:45→08:52)
[2018-06-22] MEDS: Multivitamin w/Minerals tab ORAL SCH ×2 (08:45→08:53)
--- NOTE | 2018-06-22 08:54 | NUR ---
CASE MANAGEMENT:REVIEW 77 YR OLD FEMALE BIBA FROM [facility] CC: NAUSEA AND VOMITING PMH: TRACH W/COLLAR AND GTUBE SI: UTI 99.0 77 26 142/61 98% ON RA H/H-10.2/31.8 BUN+27 IS: IV ZOFRAN 1L NS BOLUS IV ROCEPHIN CT BAD/PELVIS URINE REFLEX : TO TELEMETRY : INTERQUAL CRITERIA MET
[2018-06-22] MEDS ORDERED: Albuterol/Ipratropium 3ml neb IN-LINE SCH (09:00)
--- NOTE | 2018-06-22 10:18 | NUR ---
*-* INSURANCE *-* ALL CLINICALS AND REVIEWS HAVE BEEN FAXED TO: [email or web address] AUTH# [id number] FAX ALL CLINICALS TO FAX [phone]
[2018-06-22 10:21] LABS: BASOPHILS % (AUTO) 0.8 % (0.0-2.0); EOSINOPHILS % (AUTO) 4.5 % (0.0-3.0); HEMATOCRIT 30.3 % (37.0-47.0); HEMOGLOBIN 9.8 G/DL (12.0-16.0); LYMPHOCYTES % (AUTO) 10.3 % (20.0-45.0); MEAN CORPUSCULAR VOLUME 94 FL (80-99); MONOCYTES % (AUTO) 8.1 % (1.0-10.0); NEUTROPHILS % (AUTO) 76.3 % (45.0-75.0); PLATELET COUNT 216 K/UL (150-450); RED BLOOD COUNT 3.22 M/UL (4.20-5.40); RED CELL DISTRIBUTION WIDTH 11.8 % (11.6-14.8); WHITE BLOOD COUNT 12.3 K/UL (4.8-10.8)
[2018-06-22 10:40] LABS: ALANINE AMINOTRANSFERASE 17 U/L (12-78); ALBUMIN 2.4 G/DL (3.4-5.0); ALBUMIN/GLOBULIN RATIO 0.7 (1.0-2.7); ALKALINE PHOSPHATASE 116 U/L (46-116); ANION GAP 3 mmol/L (5-15); ASPARTATE AMINO TRANSFERASE 15 U/L (15-37); BILIRUBIN,TOTAL 0.3 MG/DL (0.2-1.0); BLOOD UREA NITROGEN 21 mg/dL (7-18); CALCIUM 8.4 MG/DL (8.5-10.1); CARBON DIOXIDE 32 MMOL/L (21-32); CHLORIDE 108 MMOL/L (98-107); CREATININE 0.9 MG/DL (0.55-1.30); POTASSIUM 4.5 MMOL/L (3.5-5.1); SODIUM 143 MMOL/L (136-145)
--- NOTE | 2018-06-22 10:46 | GI Initial Consult Note ---
History of Present Illness General Date patient seen: Jun 22, 2018 Time patient seen: 10:40 Reason for Hospitalization: Vomiting Referring physician: TATY MCNULTY Reason for Consultation: Nausea vomiting Present Illness HPI This is a 77-year-old female with a history of acute and chronic respiratory failure with tracheostomy. She also has a feeding tube. She presents with chief complaint of nausea and vomiting. Onset today. Does have some cough. No fever chills. No diarrhea. Pain is diffuse. History is limited because patient is nonverbal secondary to tracheostomy. GI consulted for reported nausea and vomiting. ROS limited, patient nonverbal at baseline. Patient is tracheostomy and G-tube dependent. Patient was seen, awake alert no apparent distress with no active signs of nausea or vomiting at this time. Was reported in the morning the patient had scant amount of emesis on her towel. In addition, the patient refused morning medications because of her nausea. The patient has a history of a upper endoscopy back in December 2016 was noted esophagitis at this time. Abdominal pelvis CT noted a hiatal hernia. Labs reviewed; WBC 12.3, hemoglobin 9.8, alkaline phosphatase 121. Home Meds Active Scripts Meropenem-0.9% Sodium Chloride (Meropenem-0.9% NaCl 1 Gram/50) 1 Gm/50 Ml Piggyback, 1 GM IV Q12HR, #6 BAG Prov:Domi Antonio RESIDENT CARE SUPERVISOR 05/13/17 Reported Medications Ondansetron* (ZOFRAN*) 4 Mg Tablet, 4 MG ORAL Q6H PRN for Nausea & Vomiting, TAB 06/21/18 Al Hydroxide/mg Hydroxide (Mag-Al Plus Suspension) 30 Ml Oral.susp, 30 ML GT Q4HR PRN for DYSPEPSIA, INDIGESTION, ML 05/04/17 Famotidine (FAMOTIDINE) 20 Mg Tablet, 20 MG GT DAILY, #30 TAB 0 Refills 05/04/17 Cranberry Extract (CRANBERRY) 425 Mg Capsule, 425 MG GT DAILY, CAP for UTI prophylaxis. Open capsule, mix with 30ML of water, do not crush capsule. 05/04/17 Ipratropium/Albuterol Sulfate (DuoNeb 0.5-3(2.5)mg/3ml) 3 Ml Ampul.neb, 3 ML IN- LINE Q4HR, EA for acute and chronic respiratory failure 05/04/17 Ferrous Sulfate (Ferrous Sulfate) 220 Mg/5 Ml Elixir, 7.5 ML GT TID, ML 05/04/17 Oxybutynin Chloride (OXYBUTYNIN CHLORIDE) 5 Mg Tablet, 5 MG GT DAILY, #30 TAB 0 Refills 05/04/17 Valproate Sodium (DEPAKENE) 250 Mg/5 Ml Solution, 250 MG GT BID 05/04/17 Multivitamin With Minerals (MULTIVITAMINS WITH MINERALS*) 1 Each Tablet, 1 TAB GT DAILY, TAB 05/04/17 Lactose-Reduced Food (Osmolite 1.2 Anatoly) 237 Ml Liquid, 1500 ML PO, ML 05/04/17 Ascorbic Acid* (VITAMIN C*) 500 Mg Tablet, 500 MG GT DAILY, #30 TAB 0 Refills 01/10/17 Amlodipine Besylate (Norvasc) 2.5 Mg Tablet, 2.5 MG GT DAILY, TAB 01/10/17 Insulin Lispro (HUMALOG) 100 Unit/1 Ml Cartridge, SUBQ, #1 UNITS 0 Refills Inject as per sliding scale: if <150 = 0 unit; 150-199 = 1; 200-249 = 3; 250-299 = 5; 300-349 = 7; 350-400 = 9, subcutaneously every 6 hours 01/10/17 Docusate Sodium* (DOCUSATE SODIUM*) 250 Mg Capsule, 250 MG GT DAILY for Constipation, CAP 01/10/17 Acetylcysteine* (ACETYLCYSTEINE*) 100 Mg/1 Ml Vial, 400 MG [id number] Q8HR, VIAL 01/10/17 Acetaminophen 160MG/5ML* (ACETAMINOPHEN*) 160 Mg/5 Ml Elixir, 20 ML GT Q6HR PRN for Mild Pain/Temp > 100.5, ML 01/10/17 Memantine Hcl* (NAMENDA*) 10 Mg Tablet, 10 MG GT DAILY, TAB 05/29/15 Med list reviewed/reconciled: Yes Allergies: Coded Allergies: CODEINE (Unverified Allergy, Unknown, 01/10/17) PENICILLINS (Unverified Allergy, Unknown, 01/10/17) Patient History Limited by: medical condition History Provided By: Medical Record [facility] [place] Narrative Past Medical History: see triage record, old chart reviewed Past Surgical History: other Pertinent Family History: none Social History: Denies: smoking Now: No Immunizations: other Reviewed Nursing Documentation: PMH: Agreed; PSxH: Agreed Nursing Documentation-PMH Past Medical History: No History, Except For Hx Hypertension: Yes Hx Pacemaker: No - ANEMIA Hx Asthma: Yes Hx COPD: Yes Hx Diabetes: Yes Hx Cancer: No Hx Gastrointestinal Problems: Yes - G-TUBE Hx Neurological Problems: Yes - mental retardation Hx Alzheimer's Disease: Yes Social History: Denies: smoking, alcohol use, drug use, other Review of Systems All Other Systems: limited Physical Exam Vital Signs Date Time Temp Pulse Resp B/P (MAP) Pulse Ox O2 Delivery O2 Flow Rate FiO2 06/21/18 20:58 99.0 77 26 142/61 98 Room Air 06/21/18 21:06 36 06/21/18 21:15 15.0 Sp02 EP Interpretation: reviewed, normal Labs Laboratory Tests Test 06/21/18 22:10 06/21/18 22:40 06/22/18 10:10 White Blood Count 10.3 K/UL (4.8-10.8) 12.3 K/UL (4.8-10.8) H Red Blood Count 3.39 M/UL (4.20-5.40) L 3.22 M/UL (4.20-5.40) L Hemoglobin 10.2 G/DL (12.0-16.0) L 9.8 G/DL (12.0-16.0) L Hematocrit 31.8 % (37.0-47.0) L 30.3 % (37.0-47.0) L Mean Corpuscular Volume 94 FL (80-99) 94 FL (80-99) Mean Corpuscular Hemoglobin 30.2 PG (27.0-31.0) 30.4 PG (27.0-31.0) Mean Corpuscular Hemoglobin Concent 32.3 G/DL (32.0-36.0) 32.4 G/DL (32.0-36.0) Red Cell Distribution Width 11.8 % (11.6-14.8) 11.8 % (11.6-14.8) Platelet Count 231 K/UL (150-450) 216 K/UL (150-450) Mean Platelet Volume 10.1 FL (6.5-10.1) 8.4 FL (6.5-10.1) Neutrophils (%) (Auto) 64.9 % (45.0-75.0) 76.3 % (45.0-75.0) H Lymphocytes (%) (Auto) 17.6 % (20.0-45.0) L 10.3 % (20.0-45.0) L Monocytes (%) (Auto) 9.0 % (1.0-10.0) 8.1 % (1.0-10.0) Eosinophils (%) (Auto) 7.2 % (0.0-3.0) H 4.5 % (0.0-3.0) H Basophils (%) (Auto) 1.3 % (0.0-2.0) 0.8 % (0.0-2.0) Sodium Level 142 MMOL/L (136-145) Pending Potassium Level 4.9 MMOL/L (3.5-5.1) Pending Chloride Level 104 MMOL/L (98-107) Pending Carbon Dioxide Level 32 MMOL/L (21-32) Pending Anion Gap 6 mmol/L (5-15) Blood Urea Nitrogen 27 mg/dL (7-18) H Pending Creatinine 0.9 MG/DL (0.55-1.30) Pending Estimat Glomerular Filtration Rate mL/min (>60) Pending Glucose Level 97 MG/DL (74-106) Pending Calcium Level 9.0 MG/DL (8.5-10.1) Pending Total Bilirubin 0.3 MG/DL (0.2-1.0) Pending Aspartate Amino Transf (AST/SGOT) 25 U/L (15-37) Pending Alanine Aminotransferase (ALT/SGPT) 18 U/L (12-78) Pending Alkaline Phosphatase 121 U/L (46-116) H Pending Total Protein 6.4 G/DL (6.4-8.2) Pending Albumin 2.5 G/DL (3.4-5.0) L Pending Globulin 3.9 g/dL Pending Albumin/Globulin Ratio 0.6 (1.0-2.7) L Lipase 62 U/L (73-393) L Urine Color Pale yellow Urine Appearance Clear Urine pH 9 (4.5-8.0) Urine Specific [place] 1.015 (1.005-1.035) Urine Protein Negative (NEGATIVE) Urine Glucose (UA) Negative (NEGATIVE) Urine Ketones Negative (NEGATIVE) Urine Blood 1+ (NEGATIVE) H Urine Nitrite Negative (NEGATIVE) Urine Bilirubin Negative (NEGATIVE) Urine Urobilinogen Normal MG/DL (0.0-1.0) Urine Leukocyte Esterase Negative (NEGATIVE) Urine RBC 5-10 /HPF (0 - 2) H Urine WBC 0-2 /HPF (0 - 2) Urine Squamous Epithelial Cells Moderate /LPF (NONE/OCC) H Urine Bacteria Moderate /HPF (NONE) H General Appearance: no apparent distress Head: normocephalic EENT: PERRL/EOMI, normal ENT inspection Neck: supple Respiratory: normal breath sounds, no respiratory distress, other - Tracheostomy dependent Cardiovascular: normal rate Gastrointestinal: normal inspection, non tender, soft, normal bowel sounds, non -distended, gt Rectal: deferred Genitourinary: no CVA tenderness Musculoskeletal: normal inspection, back normal Neurologic: alert, responsive Skin: normal inspection, normal color, no rash, warm/dry, palpation normal, well hydrated Lymphatic: normal inspection, no adenopathy Current Medications Current Medications Medications (Trade) Dose Ordered Sig/Sky Route PRN Reason Start Time Stop Time Status Last Admin Dose Admin Acetaminophen (Tylenol) 650 mg Q6H PRN ORAL Mild Pain/Temp > 100.5 06/22/18 06:15 07/22/18 05:44 Acetylcysteine (Mucomyst) 100 mg Q8HRT HHN 06/22/18 15:00 07/22/18 14:59 Al Hydroxide/Mg Hydroxide (Mylanta II) 30 ml Q4HR PRN GT DYSPEPSIA, INDIGESTION 06/22/18 05:45 07/22/18 05:44 Albuterol/ Ipratropium (Albuterol/ Ipratropium) 3 ml Q8HRT IN-LINE 06/22/18 15:00 06/27/18 14:59 Amlodipine Besylate (Norvasc) 2.5 mg DAILY GT 06/22/18 09:00 07/22/18 08:59 Ascorbic Acid (Vitamin C) 500 mg DAILY GT 06/22/18 09:00 07/22/18 08:59 Docusate Sodium (Colace) 250 mg DAILY ORAL 06/22/18 09:00 07/22/18 08:59 Famotidine (Pepcid) 20 mg DAILY GT 06/22/18 09:00 07/22/18 08:59 Memantine (Namenda) 10 mg DAILY GT 06/22/18 09:00 07/22/18 08:59 Multivitamins Therapeutic (Therapeutic Multivitamin) 1 ea DAILY ORAL 06/22/18 09:00 07/22/18 08:59 Ondansetron HCl (Zofran) 4 mg Q6H PRN ORAL Nausea & Vomiting 06/22/18 05:45 07/22/18 05:44 Oxybutynin Chloride (Ditropan) 5 mg DAILY GT 06/22/18 09:00 07/22/18 08:59 GI: Plan Problems: (1) Anemia (2) Hiatal hernia (3) Vomiting (4) Diabetes mellitus (5) Gastroparesis Plan Tracheostomy and G-tube dependent History of upper endoscopy back in December 2016 noted with esophagitis Pending final CT report, hiatal hernia noted Okay to start G-tube feedings to goal per RD We will begin low-dose Reglan [id number] for GI motility Zofran as needed for nausea and vomiting anemia work up OB stool r/o GI bleed monitor H&H, prn transfusions bowel regime ppi fu labs GI procedures only if emergent Discussed with Dr. Amor. Thank you for this patient referral, we will follow. The patient was seen and examined at bedside and all new and available data was reviewed in the patients chart. I agree with the above findings, impression and plan. (Patient seen earlier today. Signature stamp does not reflect patient encounter time.). - MD Lamar [facility] RESIDENT CARE SUPERVISOR Jun 22, 2018 10:46
[2018-06-22] MEDS: Metoclopramide 10mg/2ml Inj IVP SCH ×2 (11:00→18:10)
--- NOTE | 2018-06-22 11:09 | NUR ---
RD ASSESSMENT & RECOMMENDATIONS SEE CARE ACTIVITY FOR COMPLETE ASSESSMENT DAILY ESTIMATED NEEDS: Needs based on Pulmonary, DM, wound/ 52kg 25-30 kcals/kg 4901-6149 total kcals 1.25-1.5 g protein/kg 65-78 g total protein 25-30 mL/kg 5738-4922 total fluid mLs NUTRITION DIAGNOSIS: 1) Swallowing difficulty R/T dysphagia, respiratory status as evidenced by h/o vent dep via trach, now on T-collar, PEG dep. CURRENT TF:Glucerna 1.2 @ 43ml/hr x 24 hrs ENTERAL NUTRITION RECOMMENDATIONS: Glucerna 1.2 @ 50ml/hr x 24 hrs to provide 1200ml, 1440kcal, 72g prot, 966ml free water - Increase goal rate to 50ml/hr x 24 hrs - Flush per MD/ HOB over 30 degrees ADDITIONAL RECOMMENDATIONS: 1) Per SNF, pt is 59", 115lbs (obtained on 06/15/18) 2) Weekly calibrated bedscale wts 3) Monitor BGs closely, need for SSI - h/o DM 4) Monitor lytes closely, replete as needed 5) F/up w/ wound care eval -> rec add Aj 1pkt BID for wound healing
--- NOTE | 2018-06-22 12:26 | Cardiology Report ---
APPROVED REPORT EKG Measurement Heart [id number] Normal sinus rhythm Low voltage QRS Cannot rule out Anterior infarct, age undetermined Abnormal ECG
--- NOTE | 2018-06-22 12:39 | Diagnostic Imaging Report ---
Indication: Abdominal pain, vomiting Technique: Spiral acquisitions obtained through the abdomen and pelvis. No oral contrast utilized, per emergency room physician request No IV contrast utilized, per referring physician request.. Multiplanar reconstructions were generated. Total dose length product 750 mGycm. CTDIvol(s) 15 mGy. Dose reduction achieved using automated exposure control Comparison: 03/25/2018 Findings: There is a large ventral hernia which contains loops of small bowel. This is central but slightly to the left of midline. There is mild increased attenuation of the mesenteric fat within the hernia sac as compared to the previous study. No associated bowel dilatation, however. The appendix is not definitely demonstrated. No definite findings to suggest acute appendicitis. No evidence of diverticulosis or diverticulitis is evident. No free or loculated intraperitoneal gas or fluid. Again demonstrated is a sizable hiatal hernia. Again demonstrated is a gastrostomy, position of which appears satisfactory. The gallbladder is surgically absent. Lack of IV contrast limits assessment of the solid organs. The liver, bile ducts, pancreas, spleen, adrenals are grossly unremarkable. The kidneys are somewhat atrophic. No retroperitoneal or mesenteric mass or adenopathy. Again demonstrated is a unilocular cystic mass in the right adnexal region which measures 6 cm long axis dimension and does not appear significantly changed from the previous study. The bladder is empty. Previously demonstrated Conte catheter is not present. Retrococcygeal decubitus changes are again demonstrated. No definite underlying osseous erosion. Mild scoliotic deformity again noted. The included lung bases demonstrate atelectasis and possibly some consolidation bilaterally. This is increased from the previous exam. Impression: Large central lower abdominal ventral hernia, containing small bowel loops, also evident previously. There is equivocally increased attenuation of the mesenteric fat within the hernia sac, raising concern for strangulation. No evidence of obstruction. Atrophic bilateral kidneys Large hiatal hernia Gastrostomy 6 cm unilocular cystic mass in the right adnexal region, unchanged from previously. Gynecological consultation recommended if not previously undertaken Stable retrocardiac coccygeal decubitus changes without evidence of ulceration or osseous erosion Mild scoliotic deformity Basilar atelectasis and pulmonary parenchymal consolidation, increased from previous study This agrees with the preliminary interpretation provided overnight by [employer] teleradiology service. The CT scanner at [facility] is accredited by the [employer] [employer] and the scans are performed using protocols designed to limit radiation exposure to as low as reasonably achievable to attain images of sufficient resolution adequate for diagnostic evaluation.
[2018-06-22] MEDS: cefTRIAXone 1 GM in D5W 55 ML IVPB SCH (13:26)
--- NOTE | 2018-06-22 13:58 | NUR ---
RADIOLOGY DEPT., CHEST X-RAY DONE BY GONZALO MILLER.GUILLAUME
[2018-06-22] MEDS: Albuterol/Ipratropium 3ml neb IN-LINE SCH ×2 (15:02→23:41)
[2018-06-22 15:29] VITALS: BP 125/66
--- NOTE | 2018-06-22 16:54 | Diagnostic Imaging Report ---
Indication: Abnormal breath sounds Technique: One view of the chest Comparison: 05/13/2017 Findings: Removal of previously demonstrated PICC. There is a large retrocardiac hiatal hernia which is more apparent than on the previous study. There is suggestion of bilateral costophrenic angle blunting. This is probably due to prominent fat as no definite effusion is demonstrated at the lung bases on recent abdomen pelvis CT. There is equivocal mild interstitial congestion, which appears improved from the previous exam. Impression: Equivocal mild interstitial congestive changes Hiatal hernia Borderline cardiomegaly
--- NOTE | 2018-06-22 19:18 | NUR ---
HAND-OFF: Report given to AMBER Santamaria. Stable condition.
--- NOTE | 2018-06-22 19:32 | NUR ---
NURSE NOTES: RECEIVED PATIENT ASLEEP, AROUSABLE, WITH TRACH COLLAR ON 10 L O2. FALL AND ASPIRATION PRECAUTIONS IN PLACE: CALL LIGHT WITHIN REACH, BED IN LOW POSITION AND BED ALARM ON; HOB ELEVATED AT LEAST 30 DEGREES. WILL CONTINUE WITH PLAN OF CARE.
--- NOTE | 2018-06-22 19:45 | Consultation ---
DATE OF CONSULTATION: 06/22/2018 INFECTIOUS DISEASE CONSULTATION CONSULTING PHYSICIAN: Francisco Gonzalez M.D. PRIMARY ATTENDING PHYSICIAN: Fernandez Gomez M.D. REASON FOR CONSULTATION: Urinary tract infection. HISTORY OF PRESENT ILLNESS: The patient is a 77-year-old white female, admitted early this morning from a [facility]pc facility because of nausea and vomiting. She has chronic respiratory failure, status post tracheostomy. She has some productive cough, had leukocytosis of 12.3 this morning, not a source of history. PAST MEDICAL HISTORY: Significant for diastolic CHF, dysphagia, status post G-tube, status post tracheostomy, Alzheimer dementia, overactive bladder, diabetes mellitus, COPD. MEDICATIONS: Getting acetylcysteine, albuterol ipratropium inhaler, metoclopramide, amlodipine, vitamin C, Colace, famotidine, memantine, multivitamin, oxybutynin, Tylenol, Mylanta, Zofran, and got a dose of ceftriaxone in the ER. ALLERGIES: The patient is allergic to penicillin and codeine, but did not show allergic reaction to ceftriaxone and meropenem in the past. SOCIAL HISTORY: retirement resident with poor mental and functional status. She is single. No other history obtainable. PHYSICAL EXAMINATION: VITAL SIGNS: Temperature 98, maximum temperature 99, pulse 86, blood pressure 134/58. GENERAL APPEARANCE: No acute distress. HEAD AND NECK: Status post tracheostomy. Getting oxygen by mask through tracheostomy. LUNGS: Productive cough and few rhonchi. ABDOMEN: G-tube. Umbilical hernia is soft. EXTREMITIES: No edema . SKIN: Erythema in buttock area. LABORATORY AND DIAGNOSTIC DATA: Sodium 143, potassium 4.1, chloride 108, bicarbonate 32, BUN 21, creatinine 0.1, glucose is 109, albumin 2.4. UA showed rbc of 5 to 10. Cultures are pending. CT scan of abdomen and pelvis report is pending, but he has had a CT scan couple of months ago that showed a umbilical hernia, 6 cm right adnexal mass, and moderate to large hiatal hernia. 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 He has decreased albumin, anemia, penicillin allergy, but no allergic reaction to ceftriaxone. RECOMMENDATION: 1. Obtain chest x-ray. 2. Continue with ceftriaxone. 3. We will follow up CT scan of the abdomen and pelvis report. At the end of my exam, I thank Dr. Gomez, for involving me in the care of this patient. Francisco Gonzalez M.D. DR: Katy JOB#: [id number] CC: TAMMY
[2018-06-22 20:00] VITALS: BP 135/65
--- NOTE | 2018-06-22 20:12 | Consultation ---
History of Present Illness General Chief Complaint: Vomiting Referring physician: FERNANDEZ GOMEZ Reason for Consultation: Nausea vomiting Present Illness Allergies: Coded Allergies: CODEINE (Unverified Allergy, Unknown, 01/10/17) PENICILLINS (Unverified Allergy, Unknown, 01/10/17) Medication History Scheduled Acetylcysteine* (Acetylcysteine*), 400 MG [id number] Q8HR, (Reported) Amlodipine Besylate (Norvasc), 2.5 MG GT DAILY, (Reported) Ascorbic Acid* (Vitamin C*), 500 MG GT DAILY, (Reported) Cranberry Extract (Cranberry), 425 MG GT DAILY, (Reported) Docusate Sodium* (Docusate Sodium*), 250 MG GT DAILY, (Reported) Famotidine (Famotidine), 20 MG GT DAILY, (Reported) Ferrous Sulfate (Ferrous Sulfate), 7.5 ML GT TID, (Reported) Ipratropium/Albuterol Sulfate (DuoNeb 0.5-3(2.5)mg/3ml), 3 ML IN-LINE Q4HR, ( Reported) Memantine Hcl* (Namenda*), 10 MG GT DAILY, (Reported) Meropenem-0.9% Sodium Chloride (Meropenem-0.9% NaCl 1 Gram/50), 1 GM IV Q12HR Multivitamin With Minerals (Multivitamins With Minerals*), 1 TAB GT DAILY, ( Reported) Oxybutynin Chloride (Oxybutynin Chloride), 5 MG GT DAILY, (Reported) Valproate Sodium (Depakene), 250 MG GT BID, (Reported) Scheduled PRN Acetaminophen 160MG/5ML* (Acetaminophen*), 20 ML GT Q6HR PRN for Mild Pain/Temp > 100.5, (Reported) Al Hydroxide/mg Hydroxide (Mag-Al Plus Suspension), 30 ML GT Q4HR PRN for DYSPEPSIA, INDIGESTION, (Reported) Ondansetron* (Zofran*), 4 MG ORAL Q6H PRN for Nausea & Vomiting, (Reported) Miscellaneous Medications Insulin Lispro (Humalog), Unknown Dose SUBQ, (Reported) Lactose-Reduced Food (Osmolite 1.2 Anatoly), 1,500 ML PO, (Reported) Patient History Healthcare decision maker Resuscitation status Full Code Advanced Directive on File No Physical Exam Last 24 Hour Vital Signs Date Time Temp Pulse Resp B/P (MAP) Pulse Ox O2 Delivery O2 Flow Rate FiO2 06/22/18 16:00 69 06/22/18 15:29 97.5 91 20 125/66 (85) 98 06/22/18 15:10 82 18 100 Trach Collar 10.0 35 06/22/18 15:02 78 16 98 Trach Collar 10.0 35 06/22/18 15:02 35 06/22/18 13:50 Trach Collar 10.0 35 06/22/18 13:50 98 Trach Collar 10.0 35 06/22/18 12:00 81 06/22/18 09:00 Trach Collar 10.0 06/22/18 08:53 86 134/58 06/22/18 08:00 89 06/22/18 08:00 98.0 86 20 134/58 (83) 98 06/22/18 07:41 99 Trach Collar 10.0 35 06/22/18 07:41 77 16 Trach Collar 10.0 35 06/22/18 07:41 Trach Collar 10.0 35 06/22/18 04:27 Trach Collar 10.0 06/22/18 04:00 87 06/22/18 03:42 Trach Collar 10.0 06/22/18 02:58 98.6 71 22 115/65 100 Trach Collar 10.0 06/22/18 02:02 98.4 18 145/67 100 Trach Collar 10.0 35 06/22/18 00:59 98.6 20 145/67 100 Trach Collar 10.0 35 06/22/18 00:54 Trach Collar 10.0 35 06/22/18 00:53 100 Trach Collar 10.0 35 06/21/18 23:58 99.0 17 142/61 100 Trach Collar 10.0 35 06/21/18 23:57 96 Trach Collar 10.0 35 06/21/18 23:57 Trach Collar 10.0 35 06/21/18 23:06 78 12 36 06/21/18 21:36 76 16 36 06/21/18 21:33 76 16 Mechanical Ventilator 36 06/21/18 21:15 99.0 17 142/61 100 Mechanical Ventilator 15.0 06/21/18 21:15 80 17 Mechanical Ventilator 15.0 98 06/21/18 21:06 36 06/21/18 20:58 99.0 77 26 142/61 98 Room Air Intake and Output 06/21/18 06/22/18 18:59 06:59 # Voids 4 # Bowel Movements 2 Laboratory Tests Test 06/21/18 22:10 06/21/18 22:40 06/22/18 10:10 06/22/18 15:00 White Blood Count 10.3 K/UL (4.8-10.8) 12.3 K/UL (4.8-10.8) H Red Blood Count 3.39 M/UL (4.20-5.40) L 3.22 M/UL (4.20-5.40) L Hemoglobin 10.2 G/DL (12.0-16.0) L 9.8 G/DL (12.0-16.0) L Hematocrit 31.8 % (37.0-47.0) L 30.3 % (37.0-47.0) L Mean Corpuscular Volume 94 FL (80-99) 94 FL (80-99) Mean Corpuscular Hemoglobin 30.2 PG (27.0-31.0) 30.4 PG (27.0-31.0) Mean Corpuscular Hemoglobin Concent 32.3 G/DL (32.0-36.0) 32.4 G/DL (32.0-36.0) Red Cell Distribution Width 11.8 % (11.6-14.8) 11.8 % (11.6-14.8) Platelet Count 231 K/UL (150-450) 216 K/UL (150-450) Mean Platelet Volume 10.1 FL (6.5-10.1) 8.4 FL (6.5-10.1) Neutrophils (%) (Auto) 64.9 % (45.0-75.0) 76.3 % (45.0-75.0) H Lymphocytes (%) (Auto) 17.6 % (20.0-45.0) L 10.3 % (20.0-45.0) L Monocytes (%) (Auto) 9.0 % (1.0-10.0) 8.1 % (1.0-10.0) Eosinophils (%) (Auto) 7.2 % (0.0-3.0) H 4.5 % (0.0-3.0) H Basophils (%) (Auto) 1.3 % (0.0-2.0) 0.8 % (0.0-2.0) Sodium Level 142 MMOL/L (136-145) 143 MMOL/L (136-145) Potassium Level 4.9 MMOL/L (3.5-5.1) 4.5 MMOL/L (3.5-5.1) Chloride Level 104 MMOL/L (98-107) 108 MMOL/L (98-107) H Carbon Dioxide Level 32 MMOL/L (21-32) 32 MMOL/L (21-32) Anion Gap 6 mmol/L (5-15) 3 mmol/L (5-15) L Blood Urea Nitrogen 27 mg/dL (7-18) H 21 mg/dL (7-18) H Creatinine 0.9 MG/DL (0.55-1.30) 0.9 MG/DL (0.55-1.30) Estimat Glomerular Filtration Rate mL/min (>60) mL/min (>60) Glucose Level 97 MG/DL (74-106) 109 MG/DL (74-106) H Calcium Level 9.0 MG/DL (8.5-10.1) 8.4 MG/DL (8.5-10.1) L Total Bilirubin 0.3 MG/DL (0.2-1.0) 0.3 MG/DL (0.2-1.0) Aspartate Amino Transf (AST/SGOT) 25 U/L (15-37) 15 U/L (15-37) Alanine Aminotransferase (ALT/SGPT) 18 U/L (12-78) 17 U/L (12-78) Alkaline Phosphatase 121 U/L (46-116) H 116 U/L (46-116) Total Protein 6.4 G/DL (6.4-8.2) 6.0 G/DL (6.4-8.2) L Albumin 2.5 G/DL (3.4-5.0) L 2.4 G/DL (3.4-5.0) L Globulin 3.9 g/dL 3.6 g/dL Albumin/Globulin Ratio 0.6 (1.0-2.7) L 0.7 (1.0-2.7) L Lipase 62 U/L (73-393) L Urine Color Pale yellow Urine Appearance Clear Urine pH 9 (4.5-8.0) Urine Specific Hubbell 1.015 (1.005-1.035) Urine Protein Negative (NEGATIVE) Urine Glucose (UA) Negative (NEGATIVE) Urine Ketones Negative (NEGATIVE) Urine Blood 1+ (NEGATIVE) H Urine Nitrite Negative (NEGATIVE) Urine Bilirubin Negative (NEGATIVE) Urine Urobilinogen Normal MG/DL (0.0-1.0) Urine Leukocyte Esterase Negative (NEGATIVE) Urine RBC 5-10 /HPF (0 - 2) H Urine WBC 0-2 /HPF (0 - 2) Urine Squamous Epithelial Cells Moderate /LPF (NONE/OCC) H Urine Bacteria Moderate /HPF (NONE) H Stool Occult Blood Pending Microbiology Date/Time Source Procedure Growth Status 06/22/18 01:45 Rectum Received Height (Feet): 4 Height (Inches): 6.00 Weight (Pounds): 125 Medications Current Medications Medications (Trade) Dose Ordered Sig/Sky Route PRN Reason Start Time Stop Time Status Last Admin Dose Admin Acetaminophen (Tylenol) 650 mg Q6H PRN ORAL Mild Pain/Temp > 100.5 06/22/18 06:15 07/22/18 05:44 Acetylcysteine (Mucomyst) 100 mg Q8HRT HHN 06/22/18 15:00 07/22/18 14:59 06/22/18 15:02 Al Hydroxide/Mg Hydroxide (Mylanta II) 30 ml Q4HR PRN GT DYSPEPSIA, INDIGESTION 06/22/18 05:45 07/22/18 05:44 Albuterol/ Ipratropium (Albuterol/ Ipratropium) 3 ml Q8HRT IN-LINE 06/22/18 15:00 06/27/18 14:59 06/22/18 15:02 Amlodipine Besylate (Norvasc) 2.5 mg DAILY GT 06/22/18 09:00 07/22/18 08:59 Ascorbic Acid (Vitamin C) 500 mg DAILY GT 06/22/18 09:00 07/22/18 08:59 Ceftriaxone Sodium 1 gm/ Dextrose 55 ml @ 110 mls/hr Q24H IVPB 06/22/18 13:00 06/29/18 12:59 06/22/18 13:26 Docusate Sodium (Colace) 250 mg DAILY ORAL 06/22/18 09:00 07/22/18 08:59 Famotidine (Pepcid) 20 mg DAILY GT 06/22/18 09:00 07/22/18 08:59 Memantine (Namenda) 10 mg DAILY GT 06/22/18 09:00 07/22/18 08:59 Metoclopramide HCl (Reglan) 5 mg Q8H IVP 06/22/18 11:00 07/22/18 10:59 06/22/18 18:10 Multivitamins Therapeutic (Therapeutic Multivitamin) 1 ea DAILY ORAL 06/22/18 09:00 07/22/18 08:59 Ondansetron HCl (Zofran) 4 mg Q6H PRN ORAL Nausea & Vomiting 06/22/18 05:45 07/22/18 05:44 Oxybutynin Chloride (Ditropan) 5 mg DAILY GT 06/22/18 09:00 07/22/18 08:59 Assessment/Plan Assessment/Plan Hematology Consultation Note REQ MD: Fernandez Gomez DOS: 06/22/18 RFC: Anemia eval ID This is a 77-year-old female with a history of acute and chronic respiratory failure with tracheostomy. She also has a feeding tube. She presents with chief complaint of nausea and vomiting. Onset today. Does have some cough. No fever chills. No diarrhea. Pain is diffuse. History is limited because patient is nonverbal secondary to tracheostomy. Heme was consulted. Coded Allergies: CODEINE (Unverified Allergy, Unknown, 01/10/17) PENICILLINS (Unverified Allergy, Unknown, 01/10/17) Past Medical History: see triage record, old chart reviewed Past Surgical History: other Pertinent Family History: none Social History: Denies: smoking Now: No Immunizations: other Reviewed Nursing Documentation: PMH: Agreed; PSxH: Agreed Past Medical History: No History, Except For Hx Hypertension: Yes Hx Pacemaker: No - ANEMIA Hx Asthma: Yes Hx COPD: Yes Hx Diabetes: Yes Hx Cancer: No Hx Gastrointestinal Problems: Yes - G-TUBE Hx Neurological Problems: Yes - mental retardation Hx Alzheimer's Disease: Yes ROS: is nonverbal Eye: Denies: eye pain, blurred vision ENT: Denies: ear pain, nose congestion, throat swelling Respiratory: Reports: cough; Denies: shortness of breath Cardiovascular: Denies: chest pain, palpitations Gastrointestinal: Reports: abdominal pain, nausea, vomiting; Denies: diarrhea Musculoskeletal: Denies: back pain, joint pain Skin: Denies: rash Neurological: Denies: headache, numbness Endocrine: Denies: increased thirst, increased urine Hematologic/Lymphatic: Denies: easy bruising All Other Systems: negative except mentioned in HPI PE Vital Signs Date Time Temp Pulse Resp B/P (MAP) Pulse Ox O2 Delivery O2 Flow Rate FiO2 06/21/18 20:58 99.0 77 26 142/61 98 Room Air vitals unremarkable Sp02 EP Interpretation: reviewed, normal General Appearance: well appearing Head: normocephalic, atraumatic Eyes: bilateral eye PERRL, bilateral eye EOMI ENT: hearing grossly normal, normal pharynx, other - Tracheostomy Neck: full range of motion, supple, no meningismus, tracheotomy Respiratory: chest non-tender, rhonchi - Scatter Cardiovascular: regular rate, rhythm, no murmur GI: no mass, no organomegaly, no bruit, non-distended, abnormal bowel sounds, Umbilical hernia. No obstruction Musculoskeletal: back normal, gait/station normal, normal range of motion Psychiatric: mood/affect normal Skin: warm/dry Assessment and Recs: # Anemia of chronic disease (or of iron deficiency) due to underlying chronic medical issues, multifactorial --> Anemia workup has been ordered, rule out gi bleed --> No evidence of hemolysis is noted, peripheral smear has been reviewed. --> Hgb goal >7. Transfuse prn. --> Epogen or iron at this time is not particularly indicated --> Medications have been reviewed --> evaluate with Gi team prn --> transfuse if hgb is < 7 (will trend CBC daily) # Leukocytosis with an elevated wbc --> UTi likely the case, will be 2/2 infection --> as per id recs # Hiatal hernia --> surgery recs prn # Nasuea/vomiting. with zofran prn The timing of this note does not necessarily reflect the time of the patient was seen. Greatly appreciate consultation! Reinier Lou MD Jun 22, 2018 20:12
--- NOTE | 2018-06-22 21:15 | History and Physical Report ---
DATE OF ADMISSION: 06/22/2018 HISTORY OF PRESENT ILLNESS: The patient was admitted for urinary tract infection, elevated leukocytosis, vomiting, and dehydration at the long-term. The patient is a poor historian, cannot get reliable history from the patient. PAST MEDICAL HISTORY: Significant for chronic respiratory insufficiency, constipation, iron-deficiency anemia, NIDDM, urinary incontinence, mood disorder, history of lung collapse, history of umbilical hernia, history of gastroparesis, history of anemia, history of COPD, history of GI bleed. PAST SURGICAL HISTORY: Trach and PEG. ALLERGIES: Codeine and penicillin. MEDICATIONS: Amlodipine, Colace, famotidine, ferrous sulfate, insulin, multivitamin, oxybutynin, . FAMILY HISTORY: Noncontributory. SOCIAL HISTORY: She has history of smoking. She comes from a long-term. REVIEW OF SYSTEMS: Unable to obtain. PHYSICAL EXAMINATION: VITAL SIGNS: Temperature 98, pulse 86, blood pressure 134/58. HEENT: Trach site is intact. CHEST: Clear to auscultation. CARDIOVASCULAR: Regular rate and rhythm. ABDOMEN: Soft. G-tube site is intact. Positive bowel sounds. No organomegaly. EXTREMITIES: No edema. Reflexes equal on both sides. Generalized weakness, which is chronic. LABORATORY DATA: WBC of 10.3, hemoglobin 10.2, platelets 231. Sodium 142, potassium 4.9, BUN of 27, creatinine 0.9, and glucose of 97. Lipase of 62. ASSESSMENT AND PLAN: 1. Urinary tract infection, 2. 3. Vomiting and dehydration. I have asked basically Dr. Woods, Dr. Amor, and Dr. Francisco Gonzalez to see the patient. Antibiotics per Francisco Gonzalez. Dr. Amor will also help with etiology of vomiting. Dr. Gentile also will help with the dehydration. Fernandez Gomez M.D. DR: Guillaume JOB#: [id number] CC:
--- NOTE | 2018-06-22 21:47 | NUR ---
NURSE NOTES: PATIENT REFUSING IV HL TO BE INSERTED. CHARGE NURSE AND PRIMARY RN EXPLAINED TO PATIENT IMPORTANCE OF HAVE IV ACCESS. PATIENT STILL REFUSING. CALLED AND LEFT MESSAGE FOR DR. MCNULTY. Addendum: 06/23/18 at 0105 by BRYANNA ROACH RN IMPORTANCE OF HAVING IV ACCESS
[2018-06-23] VITALS: BP 131/67
[2018-06-23] MEDS: Metoclopramide 10mg/2ml Inj IVP SCH ×3 (03:00→19:00)
[2018-06-23 04:00] VITALS: BP 144/61
--- NOTE | 2018-06-23 05:20 | NUR ---
NURSE NOTES: PATIENT KEPT CLEAN AND DRY, INCONTINENCE CARE GIVEN NEEDED, CALAZIME CREAM APPLIED TO PERINEAL ARE. MORNING CARE GIVEN, LINEN CHANGED. BLE ELEVATED ON PILLOW WITH HEELS FLOATING. ALL NEEDS ATTENDED.
--- NOTE | 2018-06-23 07:24 | NUR ---
HAND-OFF: Report given to AMBER TRUJILLO. PATIENT ASLEEP, NO SIGNS OF DISTRESS NOTED.
[2018-06-23] MEDS: Albuterol/Ipratropium 3ml neb IN-LINE SCH ×3 (07:30→23:00)
[2018-06-23 07:38] VITALS: BP 137/59
[2018-06-23] MEDS: Docusate 250mg cap ORAL SCH (08:24)
[2018-06-23] MEDS: Oxybutynin 5mg tab GT SCH (08:24)
[2018-06-23] MEDS: Ascorbic Acid 500mg tab GT SCH (08:24)
[2018-06-23] MEDS: Memantine 10mg tab GT SCH (08:24)
[2018-06-23] MEDS: Multivitamin w/Minerals tab ORAL SCH (08:24)
--- NOTE | 2018-06-23 09:49 | NUR ---
NURSE NOTES: pt awake alert, no distress. no sob. hob elevated. gt patent and intact, no residual. pt refused meds and iv start.
--- NOTE | 2018-06-23 10:54 | NUR ---
CASE MANAGEMENT:REVIEW 06/23/18 SI: UTI. DEHYDRATION 98.2 88 18 137/59 96% ON TRACH COLLAR 10L 35% IS: IV ROCEPHIN Q24 MUCOMYST HHN Q8HRS RTC DUONEB INH Q8HRS : TELEMETRY STATUS DCP: FROM [facility]
--- NOTE | 2018-06-23 11:02 | GI Progress Note ---
Assessment/Plan Problems: (1) Gastroparesis ICD Codes: K31.84 - Gastroparesis SNOMED: 171726432 (2) Vomiting ICD Codes: R11.10 - Vomiting, unspecified SNOMED: 019960378 (3) Anemia ICD Codes: D64.9 - Anemia, unspecified SNOMED: 968612376 (4) Hiatal hernia ICD Codes: K44.9 - Diaphragmatic hernia without obstruction or gangrene SNOMED: 88230815 (5) Acute on chronic respiratory failure ICD Codes: J96.20 - Acute and chronic respiratory failure, unspecified whether with hypoxia or hypercapnia SNOMED: 01417412 Status: unchanged Status Narrative Discussed with Dr. Amor Assessment/Plan Tracheostomy and G-tube dependent History of upper endoscopy back in December 2016 noted with esophagitis Pending final CT report, hiatal hernia noted OB stool collected, pending final read G-tube feedings to goal per RD low-dose Reglan [id number] for GI motility Zofran as needed for nausea and vomiting anemia work up monitor H&H, prn transfusions bowel regime ppi fu labs GI procedures only if emergent The patient was seen and examined at bedside and all new and available data was reviewed in the patients chart. I agree with the above findings, impression and plan. (Patient seen earlier today. Signature stamp does not reflect patient encounter time.). - Jaya Amor MD Subjective Subjective Limited Refused morning medication Objective Last 24 Hour Vital Signs Date Time Temp Pulse Resp B/P (MAP) Pulse Ox O2 Delivery O2 Flow Rate FiO2 06/23/18 08:24 75 137/59 06/23/18 07:41 74 06/23/18 07:41 75 16 99 Trach Collar 10.0 35 06/23/18 07:39 Trach Collar 10.0 06/23/18 07:38 98.2 88 18 137/59 (85) 96 06/23/18 07:30 Trach Collar 10.0 35 06/23/18 07:30 35 06/23/18 07:30 98 Trach Collar 10.0 35 06/23/18 07:30 72 16 Trach Collar 10.0 35 06/23/18 07:30 72 16 98 Trach Collar 10.0 35 06/23/18 04:00 96 06/23/18 04:00 98.2 94 18 144/61 (88) 96 06/23/18 01:10 97 Trach Collar 10.0 35 06/23/18 01:10 Trach Collar 10.0 35 06/23/18 00:00 97.5 83 20 131/67 (88) 98 06/23/18 00:00 87 06/22/18 23:46 80 20 99 Trach Collar 10.0 35 06/22/18 23:36 81 24 97 Trach Collar 10.0 35 06/22/18 22:31 98 Trach Collar 10.0 35 06/22/18 22:31 Trach Collar 10.0 35 06/22/18 22:30 79 20 Trach Collar 10.0 35 06/22/18 21:00 Trach Collar 10.0 06/22/18 20:00 97.9 92 18 135/65 (88) 97 06/22/18 20:00 77 06/22/18 16:00 69 06/22/18 15:29 97.5 91 20 125/66 (85) 98 06/22/18 15:10 82 18 100 Trach Collar 10.0 35 06/22/18 15:02 78 16 98 Trach Collar 10.0 35 06/22/18 15:02 35 06/22/18 13:50 Trach Collar 10.0 35 06/22/18 13:50 98 Trach Collar 10.0 35 06/22/18 12:00 81 Intake and Output 06/22/18 06/23/18 19:00 07:00 Intake Total 801 ml 699 ml Balance 801 ml 699 ml Intake Free Water 230 ml 140 ml IV Total 55 ml Tube Feeding 516 ml 559 ml # Voids 1 6 # Bowel Movements 1 Laboratory Tests Test 06/22/18 15:00 06/22/18 20:25 Stool Occult Blood Pending Prothrombin Time 10.2 SEC (9.30-11.50) Prothromb Time International Ratio 1.0 (0.9-1.1) Fibrinogen 478 mg/dL (200-400) H Homocystine Pending Height (Feet): 4 Height (Inches): 6.00 Weight (Pounds): 127 General Appearance: WD/WN, no apparent distress, alert Cardiovascular: normal rate Respiratory/Chest: normal breath sounds, no respiratory distress, other - Tracheostomy dependent Abdominal Exam: normal bowel sounds, non tender, soft, GT site Extremities: non-tender Newton,Rosibel-Tanvir BROODMARE BARN GROOM Jun 23, 2018 11:02
--- NOTE | 2018-06-23 11:53 | Infectious Diseases Prog Note ---
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 decreased albumin, anemia, penicillin allergy, P; Continue ceftriaxone. Subjective ROS Limited/Unobtainable: Yes Constitutional: Reports: no symptoms Gastrointestinal/Abdominal: Reports: no symptoms Allergies: Coded Allergies: CODEINE (Unverified Allergy, Unknown, 01/10/17) PENICILLINS (Unverified Allergy, Unknown, 01/10/17) Objective Vital Signs Last 24 Hour Vital Signs Date Time Temp Pulse Resp B/P (MAP) Pulse Ox O2 Delivery O2 Flow Rate FiO2 06/23/18 08:24 75 137/59 06/23/18 07:41 74 06/23/18 07:41 75 16 99 Trach Collar 10.0 35 06/23/18 07:39 Trach Collar 10.0 06/23/18 07:38 98.2 88 18 137/59 (85) 96 06/23/18 07:30 Trach Collar 10.0 35 06/23/18 07:30 35 06/23/18 07:30 98 Trach Collar 10.0 35 06/23/18 07:30 72 16 Trach Collar 10.0 35 06/23/18 07:30 72 16 98 Trach Collar 10.0 35 06/23/18 04:00 96 06/23/18 04:00 98.2 94 18 144/61 (88) 96 06/23/18 01:10 97 Trach Collar 10.0 35 06/23/18 01:10 Trach Collar 10.0 35 06/23/18 00:00 97.5 83 20 131/67 (88) 98 06/23/18 00:00 87 06/22/18 23:46 80 20 99 Trach Collar 10.0 35 06/22/18 23:36 81 24 97 Trach Collar 10.0 35 06/22/18 22:31 98 Trach Collar 10.0 35 06/22/18 22:31 Trach Collar 10.0 35 06/22/18 22:30 79 20 Trach Collar 10.0 35 06/22/18 21:00 Trach Collar 10.0 06/22/18 20:00 97.9 92 18 135/65 (88) 97 06/22/18 20:00 77 06/22/18 16:00 69 06/22/18 15:29 97.5 91 20 125/66 (85) 98 06/22/18 15:10 82 18 100 Trach Collar 10.0 35 06/22/18 15:02 78 16 98 Trach Collar 10.0 35 06/22/18 15:02 35 06/22/18 13:50 Trach Collar 10.0 35 06/22/18 13:50 98 Trach Collar 10.0 35 06/22/18 12:00 81 Height (Feet): 4 Height (Inches): 6.00 Weight (Pounds): 127 HEENT: mucous membranes moist, status post trach Respiratory/Chest: decreased breath sounds, other - oxygen by mask Cardiovascular: normal rate Abdomen: soft, non tender, other - GT feeding, umbilical hernia Extremities: no edema Neurologic/Psychiatric: alert, responsive Microbiology Date/Time Source Procedure Growth Status 06/21/18 22:40 Urine,Clean Catch Urine Culture - Preliminary NO GROWTH AFTER 24 HOURS Resulted 06/22/18 01:45 Rectum Received Laboratory Tests Test 06/22/18 15:00 06/22/18 20:25 Stool Occult Blood Negative (NEGATIVE) Prothrombin Time 10.2 SEC (9.30-11.50) Prothromb Time International Ratio 1.0 (0.9-1.1) Fibrinogen 478 mg/dL (200-400) H Homocystine Pending Current Medications Medications (Trade) Dose Ordered Sig/Sky Route PRN Reason Start Time Stop Time Status Last Admin Dose Admin Acetaminophen (Tylenol) 650 mg Q6H PRN ORAL Mild Pain/Temp > 100.5 06/22/18 06:15 07/22/18 05:44 Acetylcysteine (Mucomyst) 100 mg Q8HRT HHN 06/22/18 15:00 07/22/18 14:59 06/23/18 07:30 Al Hydroxide/Mg Hydroxide (Mylanta II) 30 ml Q4HR PRN GT DYSPEPSIA, INDIGESTION 06/22/18 05:45 07/22/18 05:44 Albuterol/ Ipratropium (Albuterol/ Ipratropium) 3 ml Q8HRT IN-LINE 06/22/18 15:00 06/27/18 14:59 06/23/18 07:30 Amlodipine Besylate (Norvasc) 2.5 mg DAILY GT 06/22/18 09:00 07/22/18 08:59 Ascorbic Acid (Vitamin C) 500 mg DAILY GT 06/22/18 09:00 07/22/18 08:59 Ceftriaxone Sodium 1 gm/ Dextrose 55 ml @ 110 mls/hr Q24H IVPB 06/22/18 13:00 06/29/18 12:59 06/22/18 13:26 Docusate Sodium (Colace) 250 mg DAILY ORAL 06/22/18 09:00 07/22/18 08:59 Famotidine (Pepcid) 20 mg DAILY GT 06/22/18 09:00 07/22/18 08:59 Memantine (Namenda) 10 mg DAILY GT 06/22/18 09:00 07/22/18 08:59 Metoclopramide HCl (Reglan) 5 mg Q8H IVP 06/22/18 11:00 07/22/18 10:59 06/22/18 18:10 Multivitamins Therapeutic (Therapeutic Multivitamin) 1 ea DAILY ORAL 06/22/18 09:00 07/22/18 08:59 Ondansetron HCl (Zofran) 4 mg Q6H PRN ORAL Nausea & Vomiting 06/22/18 05:45 07/22/18 05:44 Oxybutynin Chloride (Ditropan) 5 mg DAILY GT 06/22/18 09:00 07/22/18 08:59 Francisco Gonzalez MD Jun 23, 2018 11:53
--- NOTE | 2018-06-23 11:58 | NUR ---
*-* INSURANCE *-* ALL CLINICALS AND REVIEWS HAVE BEEN FAXED TO: [employer] AUTH# [id number] FAX ALL CLINICALS TO FAX [phone]
[2018-06-23 12:00] VITALS: BP 131/76
[2018-06-23] MEDS: cefTRIAXone 1 GM in D5W 55 ML IVPB SCH (13:00)
[2018-06-23 16:00] VITALS: BP 131/77
--- NOTE | 2018-06-23 16:35 | General Progress Note ---
Assessment/Plan Assessment/Plan Assessment and Recs: # Anemia of chronic disease (or of iron deficiency) due to underlying chronic medical issues, multifactorial --> Anemia workup has been ordered, rule out gi bleed --> No evidence of hemolysis is noted, peripheral smear has been reviewed. --> Hgb goal >7. Transfuse prn. --> Epogen or iron at this time is not particularly indicated --> Medications have been reviewed --> evaluate with Gi team prn --> transfuse if hgb is < 7 (will trend CBC daily) # Leukocytosis with an elevated wbc --> UTi likely the case, will be 2/2 infection --> as per id recs ==> trend 12k # Hiatal hernia --> surgery recs prn # Nasuea/vomiting. with zofran prn The timing of this note does not necessarily reflect the time of the patient was seen. Greatly appreciate consultation! Subjective Constitutional: Denies: no symptoms, chills, diaphoresis, fever, malaise, weakness, other HEENT: Denies: no symptoms, eye pain, blurred vision, tearing, double vision, ear pain, ear discharge, nose pain, nose congestion, throat pain, throat swelling, mouth pain, mouth swelling, other Cardiovascular: Denies: no symptoms, chest pain, edema, irregular heart rate, lightheadedness, palpitations, syncope, other Respiratory: Denies: no symptoms, cough, orthopnea, shortness of breath, SOB with excertion, SOB at rest, sputum, stridor, wheezing, other Gastrointestinal/Abdominal: Denies: no symptoms, abdomen distended, abdominal pain, black stools, tarry stools, blood in stool, constipated, diarrhea, difficulty swallowing, nausea, poor appetite, poor fluid intake, rectal bleeding , vomiting, other Genitourinary: Denies: no symptoms, burning, discharge, frequency, flank pain, hematuria, incontinence, pain, urgency, other Neurologic/Psychiatric: Denies: no symptoms, anxiety, depressed, emotional problems, headache, numbness, paresthesia, pre-existing deficit, seizure, tingling, tremors, weakness, other Endocrine: Denies: no symptoms, excessive sweating, flushing, intolerance to cold, intolerance to heat, increased hunger, increased thirst, increased urine, unexplained weight gain, unexplained weight loss, other Allergies: Coded Allergies: CODEINE (Unverified Allergy, Unknown, 01/10/17) PENICILLINS (Unverified Allergy, Unknown, 01/10/17) Subjective 06/23: no fevers or chills noted, no nsuea, vomiting Objective Last 24 Hour Vital Signs Date Time Temp Pulse Resp B/P (MAP) Pulse Ox O2 Delivery O2 Flow Rate FiO2 06/23/18 15:44 85 06/23/18 14:43 Trach Collar 06/23/18 14:43 Trach Collar 06/23/18 12:30 98 Trach Collar 10.0 35 06/23/18 12:30 Trach Collar 10.0 35 06/23/18 12:00 98.2 91 18 131/76 (94) 96 06/23/18 11:43 82 06/23/18 08:24 75 137/59 06/23/18 07:41 74 06/23/18 07:41 75 16 99 Trach Collar 10.0 35 06/23/18 07:39 Trach Collar 10.0 06/23/18 07:38 98.2 88 18 137/59 (85) 96 06/23/18 07:30 Trach Collar 10.0 35 06/23/18 07:30 35 06/23/18 07:30 98 Trach Collar 10.0 35 06/23/18 07:30 72 16 Trach Collar 10.0 35 06/23/18 07:30 72 16 98 Trach Collar 10.0 35 06/23/18 04:00 96 06/23/18 04:00 98.2 94 18 144/61 (88) 96 06/23/18 01:10 97 Trach Collar 10.0 35 06/23/18 01:10 Trach Collar 10.0 35 06/23/18 00:00 97.5 83 20 131/67 (88) 98 06/23/18 00:00 87 06/22/18 23:46 80 20 99 Trach Collar 10.0 35 06/22/18 23:36 81 24 97 Trach Collar 10.0 35 06/22/18 22:31 98 Trach Collar 10.0 35 06/22/18 22:31 Trach Collar 10.0 35 06/22/18 22:30 79 20 Trach Collar 10.0 35 06/22/18 21:00 Trach Collar 10.0 06/22/18 20:00 97.9 92 18 135/65 (88) 97 06/22/18 20:00 77 Intake and Output 06/22/18 06/23/18 19:00 07:00 Intake Total 801 ml 699 ml Balance 801 ml 699 ml Intake Free Water 230 ml 140 ml IV Total 55 ml Tube Feeding 516 ml 559 ml # Voids 1 6 # Bowel Movements 1 Laboratory Tests 06/22/18 20:25: Prothrombin Time 10.2, Prothromb Time International Ratio 1.0, Fibrinogen 478H, Homocystine [Pending] Height (Feet): 4 Height (Inches): 6.00 Weight (Pounds): 127 Objective Sp02 EP Interpretation: reviewed, is wnl General Appearance: well appearing Head: normocephalic, atraumatic Eyes: bilateral eye PERRL, bilateral eye EOMI ENT: hearing grossly normal, normal pharynx, other - Tracheostomy Neck: full range of motion, supple, no meningismus, tracheotomy Respiratory: chest non-tender, rhonchi - Scattered Cardiovascular: regular rate, rhythm, no murmurs GI: no mass, no organomegaly, no bruit, non-distended, abnormal bowel sounds, Umbilical hernia++ Musculoskeletal: back normal, gait/station normal, normal range of motion Psychiatric: mood/affect normal Skin: warm/dry Reinier Lou MD Jun 23, 2018 16:35
[2018-06-23] MEDS ORDERED: Albuterol/Ipratropium 3ml neb HHN PRN (18:18)
--- NOTE | 2018-06-23 19:12 | NUR ---
HAND-OFF: Report given to AMBER IBARRA.
--- NOTE | 2018-06-23 19:15 | NUR ---
NURSE NOTES: Received report from Tone Molina RN. Patient in bed with no complaints of acute pain or discomfort at this time and also Kept clean, dry, and comfortable in bed. IV line intact and patent SL and tolerating RA with no S/S of resp distress at this time 02 saturation at 95-97%. Placed on continuous cardiac monitoring per protocol. Safety precaution in place; siderails X3 up, call light within reach, bed in lowest position, brakes and alarm on at all times. needs and wants anticipated and attended. Will continue plan of care and monitor for any changes noted. On GTF, tolerating well with no A/R noted. Continue to monitor
[2018-06-23 20:00] VITALS: BP 149/64
--- NOTE | 2018-06-23 22:54 | General Progress Note ---
Assessment/Plan Problem List: (1) Sepsis ICD Codes: A41.9 - Sepsis, unspecified organism SNOMED: 86576898 (2) UTI (urinary tract infection) ICD Codes: N39.0 - Urinary tract infection, site not specified SNOMED: 17862257 Qualifiers: Qualified Codes: N30.00 - Acute cystitis without hematuria (3) Diabetes mellitus ICD Codes: E11.9 - Type 2 diabetes mellitus without complications SNOMED: 17386479 Status: progressing Assessment/Plan afebrile leukocytosis sepsis uti clinically improving trach reviewed chart and labs Subjective ROS Limited/Unobtainable: Yes Allergies: Coded Allergies: CODEINE (Unverified Allergy, Unknown, 01/10/17) PENICILLINS (Unverified Allergy, Unknown, 01/10/17) Objective Last 24 Hour Vital Signs Date Time Temp Pulse Resp B/P (MAP) Pulse Ox O2 Delivery O2 Flow Rate FiO2 06/23/18 20:26 Trach Collar 10.0 35 06/23/18 20:25 78 18 Trach Collar 10.0 35 06/23/18 20:25 97 Trach Collar 10.0 35 06/23/18 16:00 98.2 82 18 131/77 (95) 96 06/23/18 15:44 85 06/23/18 14:43 Trach Collar 06/23/18 14:43 Trach Collar 06/23/18 12:30 98 Trach Collar 10.0 35 06/23/18 12:30 Trach Collar 10.0 35 06/23/18 12:00 98.2 91 18 131/76 (94) 96 06/23/18 11:43 82 06/23/18 08:24 75 137/59 06/23/18 07:41 74 06/23/18 07:41 75 16 99 Trach Collar 10.0 35 06/23/18 07:39 Trach Collar 10.0 06/23/18 07:38 98.2 88 18 137/59 (85) 96 06/23/18 07:30 Trach Collar 10.0 35 06/23/18 07:30 35 06/23/18 07:30 98 Trach Collar 10.0 35 06/23/18 07:30 72 16 Trach Collar 10.0 35 06/23/18 07:30 72 16 98 Trach Collar 10.0 35 06/23/18 04:00 96 06/23/18 04:00 98.2 94 18 144/61 (88) 96 06/23/18 01:10 97 Trach Collar 10.0 35 06/23/18 01:10 Trach Collar 10.0 35 06/23/18 00:00 97.5 83 20 131/67 (88) 98 06/23/18 00:00 87 06/22/18 23:46 80 20 99 Trach Collar 10.0 35 06/22/18 23:36 81 24 97 Trach Collar 10.0 35 Intake and Output 06/22/18 06/23/18 19:00 07:00 Intake Total 801 ml 699 ml Balance 801 ml 699 ml Intake Free Water 230 ml 140 ml IV Total 55 ml Tube Feeding 516 ml 559 ml # Voids 1 6 # Bowel Movements 1 Height (Feet): 4 Height (Inches): 6.00 Weight (Pounds): 127 Neck: supple Cardiovascular: normal rate Respiratory/Chest: lungs clear Fernandez Gomez MD Jun 23, 2018 22:54
[2018-06-24] VITALS: BP 150/83
[2018-06-24] MEDS: Metoclopramide 10mg/2ml Inj IVP SCH ×3 (02:59→19:05)
[2018-06-24 04:00] VITALS: BP 154/67
[2018-06-24] MEDS: Albuterol/Ipratropium 3ml neb IN-LINE SCH ×3 (07:00→23:20)
[2018-06-24 07:33] LABS: BASOPHILS % (AUTO) 1.1 % (0.0-2.0); EOSINOPHILS % (AUTO) 4.6 % (0.0-3.0); HEMATOCRIT 33.5 % (37.0-47.0); LYMPHOCYTES % (AUTO) 10.9 % (20.0-45.0); MEAN CORPUSCULAR VOLUME 95 FL (80-99); MONOCYTES % (AUTO) 8.5 % (1.0-10.0); NEUTROPHILS % (AUTO) 74.9 % (45.0-75.0); PLATELET COUNT 248 K/UL (150-450); RED BLOOD COUNT 3.54 M/UL (4.20-5.40); RED CELL DISTRIBUTION WIDTH 11.8 % (11.6-14.8); WHITE BLOOD COUNT 12.6 K/UL (4.8-10.8)
[2018-06-24 07:35] LABS: ANION GAP 5 mmol/L (5-15); BLOOD UREA NITROGEN 24 mg/dL (7-18); CALCIUM 9.2 MG/DL (8.5-10.1); CARBON DIOXIDE 34 MMOL/L (21-32); CHLORIDE 102 MMOL/L (98-107); CREATININE 0.9 MG/DL (0.55-1.30); POTASSIUM 4.3 MMOL/L (3.5-5.1); SODIUM 141 MMOL/L (136-145)
--- NOTE | 2018-06-24 07:35 | NUR ---
HAND-OFF: Report given to Tone Molina RN. Patient in stable condition, endorsed plan of care.
--- NOTE | 2018-06-24 07:36 | NUR ---
NURSE NOTES: pt awake alert, no c/o pain. call light within reach. no distress. bed in lowest position, locked. will monitor.
[2018-06-24 08:00] VITALS: BP 152/72
[2018-06-24] MEDS: Oxybutynin 5mg tab GT SCH (08:36)
[2018-06-24] MEDS: Multivitamin w/Minerals tab ORAL SCH (08:37)
[2018-06-24] MEDS: Docusate 250mg cap ORAL SCH (08:37)
[2018-06-24] MEDS: Memantine 10mg tab GT SCH (08:37)
[2018-06-24] MEDS: Ascorbic Acid 500mg tab GT SCH (08:37)
[2018-06-24] MEDS: Docusate 100mg/10ml Liq NG SCH (09:02)
--- NOTE | 2018-06-24 10:17 | GI Progress Note ---
Assessment/Plan Problems: (1) Gastroparesis ICD Codes: K31.84 - Gastroparesis SNOMED: 904901942 (2) Vomiting ICD Codes: R11.10 - Vomiting, unspecified SNOMED: 123049921 (3) Anemia ICD Codes: D64.9 - Anemia, unspecified SNOMED: 252379768 (4) Hiatal hernia ICD Codes: K44.9 - Diaphragmatic hernia without obstruction or gangrene SNOMED: 34370096 (5) Acute on chronic respiratory failure ICD Codes: J96.20 - Acute and chronic respiratory failure, unspecified whether with hypoxia or hypercapnia SNOMED: 53364241 Status: stable Status Narrative Discussed with Dr. Amor Assessment/Plan Tracheostomy and G-tube dependent History of upper endoscopy back in December 2016 noted with esophagitis Pending final CT report, hiatal hernia noted Occult blood stool negative G-tube feedings to goal per RD low-dose Reglan [id number] for GI motility Zofran as needed for nausea and vomiting anemia work up monitor H&H, prn transfusions bowel regime ppi fu labs GI procedures only if emergent The patient was seen and examined at bedside and all new and available data was reviewed in the patients chart. I agree with the above findings, impression and plan. (Patient seen earlier today. Signature stamp does not reflect patient encounter time.). - Jaya Amor MD Subjective Gastrointestinal/Abdominal: Reports: no symptoms Subjective Limited Objective Last 24 Hour Vital Signs Date Time Temp Pulse Resp B/P (MAP) Pulse Ox O2 Delivery O2 Flow Rate FiO2 06/24/18 08:37 82 152/72 06/24/18 08:00 98.0 82 20 152/72 (98) 96 06/24/18 07:56 83 06/24/18 07:36 99 Trach Collar 10.0 35 06/24/18 07:36 85 18 Trach Collar 10.0 35 06/24/18 07:36 Trach Collar 10.0 35 06/24/18 07:13 Trach Collar 10.0 06/24/18 04:00 98.0 88 20 154/67 (96) 96 06/24/18 04:00 87 06/24/18 01:00 97 Trach Collar 10.0 35 06/24/18 01:00 Trach Collar 10.0 35 06/24/18 00:00 82 06/24/18 00:00 97.0 86 20 150/83 (105) 95 06/23/18 23:00 Trach Collar 06/23/18 23:00 Trach Collar 06/23/18 21:00 Trach Collar 10.0 06/23/18 20:26 Trach Collar 10.0 35 06/23/18 20:25 78 18 Trach Collar 10.0 35 06/23/18 20:25 97 Trach Collar 10.0 35 06/23/18 20:00 98.4 89 20 149/64 (92) 96 06/23/18 20:00 86 06/23/18 16:00 98.2 82 18 131/77 (95) 96 06/23/18 15:44 85 06/23/18 14:43 Trach Collar 06/23/18 14:43 Trach Collar 06/23/18 12:30 98 Trach Collar 10.0 35 06/23/18 12:30 Trach Collar 10.0 35 06/23/18 12:00 98.2 91 18 131/76 (94) 96 06/23/18 11:43 82 Intake and Output 06/23/18 06/24/18 19:00 07:00 Intake Total 530 ml 93 ml Balance 530 ml 93 ml Intake Free Water 100 ml 50 ml Tube Feeding 430 ml 43 ml # Voids 26 2 Laboratory Tests Test 06/24/18 06:53 White Blood Count 12.6 K/UL (4.8-10.8) H Red Blood Count 3.54 M/UL (4.20-5.40) L Hemoglobin 11.0 G/DL (12.0-16.0) L Hematocrit 33.5 % (37.0-47.0) L Mean Corpuscular Volume 95 FL (80-99) Mean Corpuscular Hemoglobin 31.1 PG (27.0-31.0) H Mean Corpuscular Hemoglobin Concent 32.9 G/DL (32.0-36.0) Red Cell Distribution Width 11.8 % (11.6-14.8) Platelet Count 248 K/UL (150-450) Mean Platelet Volume 10.7 FL (6.5-10.1) H Neutrophils (%) (Auto) 74.9 % (45.0-75.0) Lymphocytes (%) (Auto) 10.9 % (20.0-45.0) L Monocytes (%) (Auto) 8.5 % (1.0-10.0) Eosinophils (%) (Auto) 4.6 % (0.0-3.0) H Basophils (%) (Auto) 1.1 % (0.0-2.0) Sodium Level 141 MMOL/L (136-145) Potassium Level 4.3 MMOL/L (3.5-5.1) Chloride Level 102 MMOL/L (98-107) Carbon Dioxide Level 34 MMOL/L (21-32) H Anion Gap 5 mmol/L (5-15) Blood Urea Nitrogen 24 mg/dL (7-18) H Creatinine 0.9 MG/DL (0.55-1.30) Estimat Glomerular Filtration Rate mL/min (>60) Glucose Level 114 MG/DL (74-106) H Calcium Level 9.2 MG/DL (8.5-10.1) Height (Feet): 4 Height (Inches): 6.00 Weight (Pounds): 127 General Appearance: WD/WN, no apparent distress, alert Cardiovascular: normal rate Respiratory/Chest: normal breath sounds, no respiratory distress Abdominal Exam: normal bowel sounds, non tender, soft, GT site - Clean dry and intact Extremities: normal range of motion, non-tender Lizzy Newton NP Jun 24, 2018 10:17
[2018-06-24 12:00] VITALS: BP 130/66
--- NOTE | 2018-06-24 12:00 | NUR ---
NURSE NOTES: suctioned trach due to secretions and pt wheezing and congestion, pt refused breathing tx multiple times. suctioned moderate amt of white sputum, no sob. pt tolerated well.
--- NOTE | 2018-06-24 12:36 | NUR ---
*-* INSURANCE *-* ALL CLINICALS HAVE BEEN FAXED TO: [employer] AUTH# [id number] FAX ALL CLINICALS TO FAX [phone]
--- NOTE | 2018-06-24 12:53 | NUR ---
CASE MANAGEMENT:REVIEW 06/24/18 SI: UTI. DEHYDRATION 98.0 82 20 152/72 96% ON 10L VIA TRACH COLLAR IS: IV ROCEPHIN Q24 MUCOMYST HHN Q8HRS RTC DUONEB INH Q8HRS : TELEMETRY STATUS DCP: FROM [facility]
[2018-06-24] MEDS: cefTRIAXone 1 GM in D5W 55 ML IVPB SCH (13:00)
--- NOTE | 2018-06-24 15:49 | Infectious Diseases Prog Note ---
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 Subjective ROS Limited/Unobtainable: Yes Constitutional: Reports: no symptoms Allergies: Coded Allergies: CODEINE (Unverified Allergy, Unknown, 01/10/17) PENICILLINS (Unverified Allergy, Unknown, 01/10/17) Objective Vital Signs Last 24 Hour Vital Signs Date Time Temp Pulse Resp B/P (MAP) Pulse Ox O2 Delivery O2 Flow Rate FiO2 06/24/18 13:18 97 Trach Collar 10.0 35 06/24/18 13:18 Trach Collar 10.0 35 06/24/18 12:00 98.0 101 20 130/66 (87) 96 06/24/18 11:48 84 06/24/18 08:37 82 152/72 06/24/18 08:00 98.0 82 20 152/72 (98) 96 06/24/18 07:56 83 06/24/18 07:36 99 Trach Collar 10.0 35 06/24/18 07:36 85 18 Trach Collar 10.0 35 06/24/18 07:36 Trach Collar 10.0 35 06/24/18 07:13 Trach Collar 10.0 06/24/18 04:00 98.0 88 20 154/67 (96) 96 06/24/18 04:00 87 06/24/18 01:00 97 Trach Collar 10.0 35 06/24/18 01:00 Trach Collar 10.0 35 06/24/18 00:00 82 06/24/18 00:00 97.0 86 20 150/83 (105) 95 06/23/18 23:00 Trach Collar 06/23/18 23:00 Trach Collar 06/23/18 21:00 Trach Collar 10.0 06/23/18 20:26 Trach Collar 10.0 35 06/23/18 20:25 78 18 Trach Collar 10.0 35 06/23/18 20:25 97 Trach Collar 10.0 35 06/23/18 20:00 98.4 89 20 149/64 (92) 96 06/23/18 20:00 86 06/23/18 16:00 98.2 82 18 131/77 (95) 96 Height (Feet): 4 Height (Inches): 6.00 Weight (Pounds): 127 General Appearance: no acute distress HEENT: status post trach Respiratory/Chest: decreased breath sounds, other - oxygen bu tracheal mask Cardiovascular: normal rate Abdomen: soft, non tender, other - GT feeding Extremities: no edema Neurologic/Psychiatric: alert, responsive Microbiology Date/Time Source Procedure Growth Status 06/22/18 01:45 Nasal Nares MRSA Culture - Final NO METHICILLIN RESISTANT STAPH AUREUS... Complete 06/21/18 22:40 Urine,Clean Catch Urine Culture - Final NO GROWTH AFTER 48 HOURS Complete 06/22/18 01:45 Rectum - Final NO CARBAPENEM-RESISTANT ENTEROBACTERI... Complete 06/22/18 01:45 Rectum VRE Culture - Final Enterococcus Faecalis - Vre Complete Laboratory Tests Test 06/24/18 06:53 White Blood Count 12.6 K/UL (4.8-10.8) H Red Blood Count 3.54 M/UL (4.20-5.40) L Hemoglobin 11.0 G/DL (12.0-16.0) L Hematocrit 33.5 % (37.0-47.0) L Mean Corpuscular Volume 95 FL (80-99) Mean Corpuscular Hemoglobin 31.1 PG (27.0-31.0) H Mean Corpuscular Hemoglobin Concent 32.9 G/DL (32.0-36.0) Red Cell Distribution Width 11.8 % (11.6-14.8) Platelet Count 248 K/UL (150-450) Mean Platelet Volume 10.7 FL (6.5-10.1) H Neutrophils (%) (Auto) 74.9 % (45.0-75.0) Lymphocytes (%) (Auto) 10.9 % (20.0-45.0) L Monocytes (%) (Auto) 8.5 % (1.0-10.0) Eosinophils (%) (Auto) 4.6 % (0.0-3.0) H Basophils (%) (Auto) 1.1 % (0.0-2.0) Sodium Level 141 MMOL/L (136-145) Potassium Level 4.3 MMOL/L (3.5-5.1) Chloride Level 102 MMOL/L (98-107) Carbon Dioxide Level 34 MMOL/L (21-32) H Anion Gap 5 mmol/L (5-15) Blood Urea Nitrogen 24 mg/dL (7-18) H Creatinine 0.9 MG/DL (0.55-1.30) Estimat Glomerular Filtration Rate mL/min (>60) Glucose Level 114 MG/DL (74-106) H Calcium Level 9.2 MG/DL (8.5-10.1) Current Medications Medications (Trade) Dose Ordered Sig/Sky Route PRN Reason Start Time Stop Time Status Last Admin Dose Admin Acetaminophen (Tylenol) 650 mg Q6H PRN ORAL Mild Pain/Temp > 100.5 06/22/18 06:15 07/22/18 05:44 Acetylcysteine (Mucomyst) 100 mg Q8HRT HHN 06/22/18 15:00 07/22/18 14:59 06/23/18 07:30 Al Hydroxide/Mg Hydroxide (Mylanta II) 30 ml Q4HR PRN GT DYSPEPSIA, INDIGESTION 06/22/18 05:45 07/22/18 05:44 Albuterol/ Ipratropium (Albuterol/ Ipratropium) 3 ml Q4H PRN HHN Shortness of Breath 06/23/18 18:18 06/28/18 18:17 Albuterol/ Ipratropium (Albuterol/ Ipratropium) 3 ml Q8HRT IN-LINE 06/22/18 15:00 06/27/18 14:59 06/23/18 07:30 Amlodipine Besylate (Norvasc) 2.5 mg DAILY GT 06/22/18 09:00 07/22/18 08:59 06/24/18 08:37 Ascorbic Acid (Vitamin C) 500 mg DAILY GT 06/22/18 09:00 07/22/18 08:59 06/24/18 08:37 Ceftriaxone Sodium 1 gm/ Dextrose 55 ml @ 110 mls/hr Q24H IVPB 06/22/18 13:00 06/29/18 12:59 06/24/18 13:00 Docusate Sodium (Colace) 200 mg DAILY NG 06/24/18 09:00 07/24/18 08:59 06/24/18 09:02 Famotidine (Pepcid) 20 mg DAILY GT 06/22/18 09:00 07/22/18 08:59 06/24/18 08:37 Memantine (Namenda) 10 mg DAILY GT 06/22/18 09:00 07/22/18 08:59 06/24/18 08:37 Metoclopramide HCl (Reglan) 5 mg Q8H IVP 06/22/18 11:00 07/22/18 10:59 06/24/18 10:25 Multivitamins Therapeutic (Therapeutic Multivitamin) 1 ea DAILY ORAL 06/22/18 09:00 07/22/18 08:59 06/24/18 08:37 Ondansetron HCl (Zofran) 4 mg Q6H PRN ORAL Nausea & Vomiting 06/22/18 05:45 07/22/18 05:44 Oxybutynin Chloride (Ditropan) 5 mg DAILY GT 06/22/18 09:00 07/22/18 08:59 06/24/18 08:36 Francisco Gonzalez MD Jun 24, 2018 15:49
[2018-06-24 16:00] VITALS: BP 134/70
--- NOTE | 2018-06-24 17:13 | General Progress Note ---
Assessment/Plan Assessment/Plan Assessment and Recs: # Anemia of chronic disease due to underlying chronic medical issues, multifactorial --> Anemia workup has been reviewed and ferritin is 323 --> No evidence of hemolysis is noted, peripheral smear has been reviewed. --> Hgb goal >7. Transfuse prn. --> Epogen or iron at this time is not particularly indicated --> Medications have been reviewed --> evaluate with Gi team prn --> transfuse if hgb is < 7 (will trend CBC daily) # Leukocytosis with an elevated wbc --> UTi likely the case, will be 2/2 infection --> as per id recs ==> trend 12k-->12,6k # Hiatal hernia --> surgery recs prn # Nasuea/vomiting. with zofran prn The timing of this note does not necessarily reflect the time of the patient was seen. Greatly appreciate consultation! Subjective Allergies: Coded Allergies: CODEINE (Unverified Allergy, Unknown, 01/10/17) PENICILLINS (Unverified Allergy, Unknown, 01/10/17) Subjective 06/23: no fevers or chills noted, no nsuea, vomiting 06/24: no events, no changes that are significant, no bleeding, seen by gi Objective Last 24 Hour Vital Signs Date Time Temp Pulse Resp B/P (MAP) Pulse Ox O2 Delivery O2 Flow Rate FiO2 06/24/18 15:04 86 06/24/18 13:18 97 Trach Collar 10.0 35 06/24/18 13:18 Trach Collar 10.0 35 06/24/18 12:00 98.0 101 20 130/66 (87) 96 06/24/18 11:48 84 06/24/18 08:37 82 152/72 06/24/18 08:00 98.0 82 20 152/72 (98) 96 06/24/18 07:56 83 06/24/18 07:36 99 Trach Collar 10.0 35 06/24/18 07:36 85 18 Trach Collar 10.0 35 06/24/18 07:36 Trach Collar 10.0 35 06/24/18 07:13 Trach Collar 10.0 06/24/18 04:00 98.0 88 20 154/67 (96) 96 06/24/18 04:00 87 06/24/18 01:00 97 Trach Collar 10.0 35 06/24/18 01:00 Trach Collar 10.0 35 06/24/18 00:00 82 06/24/18 00:00 97.0 86 20 150/83 (105) 95 06/23/18 23:00 Trach Collar 06/23/18 23:00 Trach Collar 06/23/18 21:00 Trach Collar 10.0 06/23/18 20:26 Trach Collar 10.0 35 06/23/18 20:25 78 18 Trach Collar 10.0 35 06/23/18 20:25 97 Trach Collar 10.0 35 06/23/18 20:00 98.4 89 20 149/64 (92) 96 06/23/18 20:00 86 Intake and Output 06/23/18 06/24/18 19:00 07:00 Intake Total 530 ml 93 ml Balance 530 ml 93 ml Intake Free Water 100 ml 50 ml Tube Feeding 430 ml 43 ml # Voids 26 2 Laboratory Tests 06/24/18 06:53: White Blood Count 12.6H, Red Blood Count 3.54L, Hemoglobin 11.0L, Hematocrit 33.5L, Mean Corpuscular Volume 95, Mean Corpuscular Hemoglobin 31.1H, Mean Corpuscular Hemoglobin Concent 32.9, Red Cell Distribution Width 11.8, Platelet Count 248, Mean Platelet Volume 10.7H, Neutrophils (%) (Auto) 74.9, Lymphocytes (%) (Auto) 10.9L, Monocytes (%) (Auto) 8.5, Eosinophils (%) (Auto) 4.6H, Basophils (%) (Auto) 1.1, Sodium Level 141, Potassium Level 4.3, Chloride Level 102, Carbon Dioxide Level 34H, Anion Gap 5, Blood Urea Nitrogen 24H, Creatinine 0.9, Estimat Glomerular Filtration Rate , Glucose Level 114H, Calcium Level 9.2 Height (Feet): 4 Height (Inches): 6.00 Weight (Pounds): 127 Objective Sp02 EP Interpretation: reviewed, is wnl General Appearance: well appearing Head: normocephalic, atraumatic Eyes: bilateral eye PERRL, bilateral eye EOMI ENT: hearing grossly normal, normal pharynx, other - Tracheostomy Neck: full range of motion, supple, no meningismus Respiratory: chest non-tender, rhonchi - Scattered Cardiovascular: regular rate, rhythm, no murmurs GI: no mass, no organomegaly, no bruit, non-distended, + gtube, Umbilical hernia++ Musculoskeletal: back normal, gait/station normal, normal range of motion Psychiatric: mood/affect normal Skin: warm/dry Reinier Lou MD Jun 24, 2018 17:13
--- NOTE | 2018-06-24 19:07 | NUR ---
HAND-OFF: Report given to CONSTANCE CLARK.
--- NOTE | 2018-06-24 19:10 | NUR ---
NURSE NOTES: Received report from Tone Molina RN. Patient in bed with no complaints of acute pain or discomfort at this time and also Kept clean, dry, and comfortable in bed. IV line intact and patent SL and tolerating RA with no S/S of resp distress at this time 02 saturation at 95-97%. Placed on continuous cardiac monitoring per protocol. Safety precaution in place; siderails X3 up, call light within reach, bed in lowest position, brakes and alarm on at all times. needs and wants anticipated and attended. Will continue plan of care and monitor for any changes noted. On GTF as ordered, tolerating well. Will continue to monitor
--- NOTE | 2018-06-24 19:52 | NUR ---
RESPIRATORY NOTE: Received pt on 35% Cool Aerosol via Trach-collar. Pt is trach-dependent w/ a cuffed, Portex 8 tube. Cuff is currently deflated. Pt alert/awake, follows commands, nonverbal. B/S cathy. rhonchi/diminished, sxn minimal amounts of thick/thin, white frothy secretions. [place] at bedside. Pt resting comfortably, in no apparent distress at this time. Will continue plan of care.
[2018-06-24 20:00] VITALS: BP 140/63
--- NOTE | 2018-06-24 21:50 | General Progress Note ---
Assessment/Plan Problem List: (1) Sepsis ICD Codes: A41.9 - Sepsis, unspecified organism SNOMED: 74517337 (2) UTI (urinary tract infection) ICD Codes: N39.0 - Urinary tract infection, site not specified SNOMED: 57229832 Qualifiers: Qualified Codes: N30.00 - Acute cystitis without hematuria (3) Diabetes mellitus ICD Codes: E11.9 - Type 2 diabetes mellitus without complications SNOMED: 54960384 Status: progressing Assessment/Plan dc planning no acute events sepsis uti clinically improving trach reviewed chart and labs Subjective ROS Limited/Unobtainable: Yes Allergies: Coded Allergies: CODEINE (Unverified Allergy, Unknown, 01/10/17) PENICILLINS (Unverified Allergy, Unknown, 01/10/17) Objective Last 24 Hour Vital Signs Date Time Temp Pulse Resp B/P (MAP) Pulse Ox O2 Delivery O2 Flow Rate FiO2 06/24/18 19:50 98 Trach Collar 10.0 35 06/24/18 19:50 Trach Collar 10.0 35 06/24/18 16:00 98.0 96 20 134/70 (91) 96 06/24/18 15:04 86 06/24/18 13:19 Trach Collar 10.0 35 06/24/18 13:19 Trach Collar 06/24/18 13:18 97 Trach Collar 10.0 35 06/24/18 13:18 Trach Collar 10.0 35 06/24/18 12:00 98.0 101 20 130/66 (87) 96 06/24/18 11:48 84 06/24/18 08:37 82 152/72 06/24/18 08:00 98.0 82 20 152/72 (98) 96 06/24/18 07:56 83 06/24/18 07:36 99 Trach Collar 10.0 35 06/24/18 07:36 Trach Collar 10.0 35 06/24/18 07:36 85 18 Trach Collar 10.0 35 06/24/18 07:36 Trach Collar 06/24/18 07:36 Trach Collar 10.0 35 06/24/18 07:13 Trach Collar 10.0 06/24/18 04:00 98.0 88 20 154/67 (96) 96 06/24/18 04:00 87 06/24/18 01:00 97 Trach Collar 10.0 35 06/24/18 01:00 Trach Collar 10.0 35 06/24/18 00:00 82 06/24/18 00:00 97.0 86 20 150/83 (105) 95 06/23/18 23:00 Trach Collar 06/23/18 23:00 Trach Collar Intake and Output 06/23/18 06/24/18 19:00 07:00 Intake Total 530 ml 93 ml Balance 530 ml 93 ml Intake Free Water 100 ml 50 ml Tube Feeding 430 ml 43 ml # Voids 26 2 Laboratory Tests 06/24/18 06:53: White Blood Count 12.6H, Red Blood Count 3.54L, Hemoglobin 11.0L, Hematocrit 33.5L, Mean Corpuscular Volume 95, Mean Corpuscular Hemoglobin 31.1H, Mean Corpuscular Hemoglobin Concent 32.9, Red Cell Distribution Width 11.8, Platelet Count 248, Mean Platelet Volume 10.7H, Neutrophils (%) (Auto) 74.9, Lymphocytes (%) (Auto) 10.9L, Monocytes (%) (Auto) 8.5, Eosinophils (%) (Auto) 4.6H, Basophils (%) (Auto) 1.1, Sodium Level 141, Potassium Level 4.3, Chloride Level 102, Carbon Dioxide Level 34H, Anion Gap 5, Blood Urea Nitrogen 24H, Creatinine 0.9, Estimat Glomerular Filtration Rate , Glucose Level 114H, Calcium Level 9.2 Height (Feet): 4 Height (Inches): 6.00 Weight (Pounds): 127 General Appearance: confused Cardiovascular: normal rate Respiratory/Chest: lungs clear Fernandez Gomez MD Jun 24, 2018 21:50
[2018-06-25] VITALS: BP 156/83
[2018-06-25] MEDS: Metoclopramide 10mg/2ml Inj IVP SCH ×2 (03:05→09:55)
--- NOTE | 2018-06-25 03:30 | NUR ---
NURSE NOTES: Patient asleep in bed with no S/S of distress at this time. Will continue to monitor
[2018-06-25 04:00] VITALS: BP 132/66
--- NOTE | 2018-06-25 07:28 | NUR ---
HAND-OFF: Report given to Travis Hyatt RN. Patient in bed in stable condition. Endorsed plan of care.
[2018-06-25 08:00] VITALS: BP 139/77
[2018-06-25] MEDS: Albuterol/Ipratropium 3ml neb IN-LINE SCH ×2 (08:06→14:09)
--- NOTE | 2018-06-25 08:20 | NUR ---
NURSE NOTES: recvd pt. Pt is sitting in bed. Pt has trach collar, with no sig of sob or resp distress. GT Feeding Glucerna 1.2 @ 43 running, pt tolerating well, Bed in lowest position, call light within reach, will continue with plan of care
--- NOTE | 2018-06-25 08:26 | NUR ---
NURSE NOTES: Recvd order from Dr Gomez to DC pt back to [facility] with abx order from Joe Jennings Will prepare pt for [place]
--- NOTE | 2018-06-25 09:08 | NUR ---
DISCHARGE PLAN DISCHARGE ORDER NOTED PATIENT IS FROM [facility]ED TO [facility] AWAIT ACCEPTANCE AND ASSIGNED ROOM NUMBER
[2018-06-25] MEDS: Memantine 10mg tab GT SCH (09:47)
[2018-06-25] MEDS: Multivitamin w/Minerals tab ORAL SCH (09:47)
[2018-06-25] MEDS: Ascorbic Acid 500mg tab GT SCH (09:47)
[2018-06-25] MEDS: Oxybutynin 5mg tab GT SCH (09:47)
[2018-06-25] MEDS: Docusate 100mg/10ml Liq NG SCH (09:48)
--- NOTE | 2018-06-25 10:36 | GI Progress Note ---
Assessment/Plan Problems: (1) Gastroparesis ICD Codes: K31.84 - Gastroparesis SNOMED: 332389942 (2) Vomiting ICD Codes: R11.10 - Vomiting, unspecified SNOMED: 472182191 (3) Anemia ICD Codes: D64.9 - Anemia, unspecified SNOMED: 357004211 (4) Hiatal hernia ICD Codes: K44.9 - Diaphragmatic hernia without obstruction or gangrene SNOMED: 77753689 (5) Acute on chronic respiratory failure ICD Codes: J96.20 - Acute and chronic respiratory failure, unspecified whether with hypoxia or hypercapnia SNOMED: 39438660 Status: stable Status Narrative Discussed with Dr. Amor Assessment/Plan Tracheostomy and G-tube dependent History of upper endoscopy back in December 2016 noted with esophagitis Pending final CT report, hiatal hernia noted Occult blood stool negative G-tube feedings to goal per RD low-dose Reglan [id number] for GI motility Zofran as needed for nausea and vomiting monitor H&H, prn transfusions bowel regime ppi fu labs GI procedures only if emergent DC planning The patient was seen and examined at bedside and all new and available data was reviewed in the patients chart. I agree with the above findings, impression and plan. (Patient seen earlier today. Signature stamp does not reflect patient encounter time.). - Jaya Amor MD Subjective Subjective Limited Objective Last 24 Hour Vital Signs Date Time Temp Pulse Resp B/P (MAP) Pulse Ox O2 Delivery O2 Flow Rate FiO2 06/25/18 09:47 84 139/77 06/25/18 08:20 84 18 100 Trach Collar 10.0 35 06/25/18 08:08 79 20 98 Trach Collar 10.0 35 06/25/18 08:08 98 Trach Collar 10.0 35 06/25/18 08:08 35 06/25/18 08:08 Trach Collar 10.0 35 06/25/18 08:00 98.0 95 20 139/77 (97) 100 06/25/18 04:00 98.9 85 20 132/66 (88) 98 06/25/18 04:00 97 06/25/18 01:10 Trach Collar 10.0 35 06/25/18 01:10 97 Trach Collar 10.0 35 06/25/18 00:00 85 06/25/18 00:00 98.1 95 20 156/83 (107) 95 06/24/18 23:25 81 18 99 Trach Collar 10.0 35 06/24/18 23:20 35 06/24/18 23:20 78 18 97 Trach Collar 10.0 35 06/24/18 21:00 Trach Collar 10.0 06/24/18 20:00 98.3 88 16 140/63 (88) 94 06/24/18 20:00 110 06/24/18 19:50 98 Trach Collar 10.0 35 06/24/18 19:50 Trach Collar 10.0 35 06/24/18 16:00 98.0 96 20 134/70 (91) 96 06/24/18 15:04 86 06/24/18 13:19 Trach Collar 10.0 35 06/24/18 13:19 Trach Collar 06/24/18 13:18 97 Trach Collar 10.0 35 06/24/18 13:18 Trach Collar 10.0 35 06/24/18 12:00 98.0 101 20 130/66 (87) 96 06/24/18 11:48 84 Intake and Output 06/24/18 06/25/18 19:00 07:00 Intake Total 222 ml Balance 222 ml Intake Free Water 50 ml Tube Feeding 172 ml # Voids 12 2 # Bowel Movements 1 Height (Feet): 4 Height (Inches): 6.00 Weight (Pounds): 127 General Appearance: WD/WN, no apparent distress, alert Cardiovascular: normal rate, other Respiratory/Chest: normal breath sounds, no respiratory distress, other - Tracheostomy Abdominal Exam: normal bowel sounds, non tender, soft, GT site - Clean dry and intact Extremities: non-tender Lizzy Newton COAGULANT DIPPER Jun 25, 2018 10:36
--- NOTE | 2018-06-25 10:59 | Infectious Diseases Prog Note ---
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 decreased albumin, anemia, penicillin allergy, VRE carrier P; Continue ceftriaxone X 1 Dose Can be discharged to SNF without antibiotic Subjective ROS Limited/Unobtainable: Yes Allergies: Coded Allergies: CODEINE (Unverified Allergy, Unknown, 01/10/17) PENICILLINS (Unverified Allergy, Unknown, 01/10/17) Objective Vital Signs Last 24 Hour Vital Signs Date Time Temp Pulse Resp B/P (MAP) Pulse Ox O2 Delivery O2 Flow Rate FiO2 06/25/18 09:47 84 139/77 06/25/18 08:20 84 18 100 Trach Collar 10.0 35 06/25/18 08:08 79 20 98 Trach Collar 10.0 35 06/25/18 08:08 98 Trach Collar 10.0 35 06/25/18 08:08 35 06/25/18 08:08 Trach Collar 10.0 35 06/25/18 08:00 98.0 95 20 139/77 (97) 100 06/25/18 04:00 98.9 85 20 132/66 (88) 98 06/25/18 04:00 97 06/25/18 01:10 Trach Collar 10.0 35 06/25/18 01:10 97 Trach Collar 10.0 35 06/25/18 00:00 85 06/25/18 00:00 98.1 95 20 156/83 (107) 95 06/24/18 23:25 81 18 99 Trach Collar 10.0 35 06/24/18 23:20 35 06/24/18 23:20 78 18 97 Trach Collar 10.0 35 06/24/18 21:00 Trach Collar 10.0 06/24/18 20:00 98.3 88 16 140/63 (88) 94 06/24/18 20:00 110 06/24/18 19:50 98 Trach Collar 10.0 35 06/24/18 19:50 Trach Collar 10.0 35 06/24/18 16:00 98.0 96 20 134/70 (91) 96 06/24/18 15:04 86 06/24/18 13:19 Trach Collar 10.0 35 06/24/18 13:19 Trach Collar 06/24/18 13:18 97 Trach Collar 10.0 35 06/24/18 13:18 Trach Collar 10.0 35 06/24/18 12:00 98.0 101 20 130/66 (87) 96 06/24/18 11:48 84 Height (Feet): 4 Height (Inches): 6.00 Weight (Pounds): 127 General Appearance: no acute distress HEENT: mucous membranes moist, status post trach Respiratory/Chest: accessory muscle use Cardiovascular: normal rate Abdomen: soft, non tender, other - GT feeding, umbilical hernia Neurologic/Psychiatric: alert, responsive Musculoskeletal: atrophy Current Medications Medications (Trade) Dose Ordered Sig/Sky Route PRN Reason Start Time Stop Time Status Last Admin Dose Admin Acetaminophen (Tylenol) 650 mg Q6H PRN ORAL Mild Pain/Temp > 100.5 06/22/18 06:15 07/22/18 05:44 Acetylcysteine (Mucomyst) 100 mg Q8HRT HHN 06/22/18 15:00 07/22/18 14:59 06/25/18 08:07 Al Hydroxide/Mg Hydroxide (Mylanta II) 30 ml Q4HR PRN GT DYSPEPSIA, INDIGESTION 06/22/18 05:45 07/22/18 05:44 Albuterol/ Ipratropium (Albuterol/ Ipratropium) 3 ml Q4H PRN HHN Shortness of Breath 06/23/18 18:18 06/28/18 18:17 Albuterol/ Ipratropium (Albuterol/ Ipratropium) 3 ml Q8HRT IN-LINE 06/22/18 15:00 06/27/18 14:59 06/25/18 08:06 Amlodipine Besylate (Norvasc) 2.5 mg DAILY GT 06/22/18 09:00 07/22/18 08:59 06/25/18 09:47 Ascorbic Acid (Vitamin C) 500 mg DAILY GT 06/22/18 09:00 07/22/18 08:59 06/25/18 09:47 Ceftriaxone Sodium 1 gm/ Dextrose 55 ml @ 110 mls/hr Q24H IVPB 06/22/18 13:00 06/29/18 12:59 06/24/18 13:00 Docusate Sodium (Colace) 200 mg DAILY NG 06/24/18 09:00 07/24/18 08:59 06/25/18 09:48 Famotidine (Pepcid) 20 mg DAILY GT 06/22/18 09:00 07/22/18 08:59 06/25/18 09:47 Memantine (Namenda) 10 mg DAILY GT 06/22/18 09:00 07/22/18 08:59 06/25/18 09:47 Metoclopramide HCl (Reglan) 5 mg Q8H IVP 06/22/18 11:00 07/22/18 10:59 06/25/18 09:55 Multivitamins Therapeutic (Therapeutic Multivitamin) 1 ea DAILY ORAL 06/22/18 09:00 07/22/18 08:59 06/25/18 09:47 Ondansetron HCl (Zofran) 4 mg Q6H PRN ORAL Nausea & Vomiting 06/22/18 05:45 07/22/18 05:44 Oxybutynin Chloride (Ditropan) 5 mg DAILY GT 06/22/18 09:00 07/22/18 08:59 06/25/18 09:47 Francisco Gonzalez MD Jun 25, 2018 10:59
--- NOTE | 2018-06-25 11:59 | NUR ---
DISCHARGE PLANNED PATIENT RETURNING TO [facility] DETENTION T: [phone] FOR NURSE TO NURSE REPORT [facility] HAS BEEN ARRANGED FOR 1400 BLOOM CONVEYOR OPERATOR MESSAGE LEFT FOR CONSERVATOR KARI LAWRENCE T: [phone]
[2018-06-25 12:00] VITALS: BP 135/57
[2018-06-25] MEDS: cefTRIAXone 1 GM in D5W 55 ML IVPB SCH (13:10)
--- NOTE | 2018-06-25 13:47 | NUR ---
NURSE NOTES: called Ulysses [phone] and s/w Rebekah to give report on pt.
--- NOTE | 2018-06-25 14:34 | NUR ---
RD ASSESSMENT & RECOMMENDATIONS SEE CARE ACTIVITY FOR COMPLETE ASSESSMENT DAILY ESTIMATED NEEDS: Needs based on Pulmonary, DM, wound/ 52kg 25-30 kcals/kg 5509-1749 total kcals 1.25-1.5 g protein/kg 65-78 g total protein 25-30 mL/kg 1949-9978 total fluid mLs NUTRITION DIAGNOSIS: 1) Swallowing difficulty R/T dysphagia, respiratory status as evidenced by h/o vent dep via trach, now on T-collar, PEG dep. CURRENT TF:Glucerna 1.2 @ 43ml/hr x 24 hrs ENTERAL NUTRITION RECOMMENDATIONS: Glucerna 1.2 @ 50ml/hr x 24 hrs to provide 1200ml, 1440kcal, 72g prot, 966ml free water - Increase goal rate to 50ml/hr x 24 hrs - Flush per MD/ HOB over 30 degrees ADDITIONAL RECOMMENDATIONS: 1) Per SNF, pt is 59", 115lbs (obtained on 06/15/18) 2) Weekly calibrated bedscale wts 3) Monitor BGs closely, need for SSI - h/o DM 4) Monitor lytes closely, replete as needed 5) F/up w/ wound care eval -> rec add Aj 1pkt BID for wound healing
--- NOTE | 2018-06-25 14:39 | General Progress Note ---
Assessment/Plan Assessment/Plan Assessment and Recs: # Anemia of chronic disease due to underlying chronic medical issues, multifactorial --> Anemia workup has been reviewed and ferritin is 323 --> No evidence of hemolysis is noted, peripheral smear has been reviewed. --> Hgb goal >7. Transfuse prn. --> hgb 9.8-->11 --> Medications have been reviewed --> evaluate with Gi team prn --> transfuse if hgb is < 7 (will trend CBC daily) # Leukocytosis with an elevated wbc --> UTi likely the case, will be 2/2 infection --> as per id recs ==> trend 12k-->12,6k # Hiatal hernia --> surgery recs prn # Nasuea/vomiting --> zofran prn The timing of this note does not necessarily reflect the time of the patient was seen. Greatly appreciate consultation! Subjective Constitutional: Denies: no symptoms, chills, diaphoresis, fever, malaise, weakness, other HEENT: Denies: no symptoms, eye pain, blurred vision, tearing, double vision, ear pain, ear discharge, nose pain, nose congestion, throat pain, throat swelling, mouth pain, mouth swelling, other Cardiovascular: Denies: no symptoms, chest pain, edema, irregular heart rate, lightheadedness, palpitations, syncope, other Respiratory: Denies: no symptoms, cough, orthopnea, shortness of breath, SOB with excertion, SOB at rest, sputum, stridor, wheezing, other Neurologic/Psychiatric: Denies: no symptoms, anxiety, depressed, emotional problems, headache, numbness, paresthesia, pre-existing deficit, seizure, tingling, tremors, weakness, other Endocrine: Denies: no symptoms, excessive sweating, flushing, intolerance to cold, intolerance to heat, increased hunger, increased thirst, increased urine, unexplained weight gain, unexplained weight loss, other Hematologic/Lymphatic: Denies: no symptoms, anemia, easy bleeding, easy bruising, other Allergies: Coded Allergies: CODEINE (Unverified Allergy, Unknown, 01/10/17) PENICILLINS (Unverified Allergy, Unknown, 01/10/17) Subjective 06/23: no fevers or chills noted, no nsuea, vomiting 06/24: no events, no changes that are significant, no bleeding, seen by gi 06/25: no events, s/ trach and s/p peg and labs reviewed, potential dc shortly Objective Last 24 Hour Vital Signs Date Time Temp Pulse Resp B/P (MAP) Pulse Ox O2 Delivery O2 Flow Rate FiO2 06/25/18 14:27 79 18 98 Trach Collar 10.0 35 06/25/18 14:25 79 18 98 Trach Collar 10.0 35 06/25/18 12:00 99 06/25/18 12:00 97.6 92 20 135/57 (83) 100 06/25/18 09:47 84 139/77 06/25/18 09:00 Trach Collar 10.0 06/25/18 08:20 84 18 100 Trach Collar 10.0 35 06/25/18 08:08 79 20 98 Trach Collar 10.0 35 06/25/18 08:08 98 Trach Collar 10.0 35 06/25/18 08:08 35 06/25/18 08:08 Trach Collar 10.0 35 06/25/18 08:00 98 06/25/18 08:00 98.0 95 20 139/77 (97) 100 06/25/18 04:00 98.9 85 20 132/66 (88) 98 06/25/18 04:00 97 06/25/18 01:10 Trach Collar 10.0 35 06/25/18 01:10 97 Trach Collar 10.0 35 06/25/18 00:00 85 06/25/18 00:00 98.1 95 20 156/83 (107) 95 06/24/18 23:25 81 18 99 Trach Collar 10.0 35 06/24/18 23:20 35 06/24/18 23:20 78 18 97 Trach Collar 10.0 35 06/24/18 21:00 Trach Collar 10.0 06/24/18 20:00 98.3 88 16 140/63 (88) 94 06/24/18 20:00 110 06/24/18 19:50 98 Trach Collar 10.0 35 06/24/18 19:50 Trach Collar 10.0 35 06/24/18 16:00 98.0 96 20 134/70 (91) 96 06/24/18 15:04 86 Intake and Output 06/24/18 06/25/18 19:00 07:00 Intake Total 222 ml Balance 222 ml Intake Free Water 50 ml Tube Feeding 172 ml # Voids 12 2 # Bowel Movements 1 Height (Feet): 4 Height (Inches): 6.00 Weight (Pounds): 127 Objective Sp02 EP Interpretation: reviewed, is wnl General Appearance: well appearing Head: normocephalic, atraumatic Eyes: bilateral eye PERRL, bilateral eye EOMI ENT: hearing grossly normal, normal pharynx, other - Tracheostomy Neck: full range of motion, supple, no meningismus Respiratory: s/p trach on vent Cardiovascular: regular rate, rhythm, no murmurs GI: no mass, no organomegaly, no bruit, non-distended, + gtube, Umbilical hernia++ Musculoskeletal: back normal, gait/station normal, normal range of motion Psychiatric: mood/affect normal Skin: warm/dry Reinier Lou MD Jun 25, 2018 14:39
--- NOTE | 2018-06-25 15:26 | NUR ---
*-* INSURANCE *-* ALL CLINICALS HAVE BEEN FAXED TO: [employer] AUTH# [id number] FAX ALL CLINICALS TO FAX [phone]
--- NOTE | 2018-06-28 08:24 | Discharge Summary ---
Discharge Summary Discharge Summary _ DATE OF ADMISSION: 06/22/2018 DATE OF DISCHARGE: 06/25/2018 DISCHARGED BY: Dr Gomez REASON FOR ADMISSION: 77 years old female with past medical history of chronic respiratory failure with tracheostomy, dysphagia, G-tube, hypertension, COPD, diabetes mellitus, Alzheimer disease, schizophrenia, was sent from the care home facility for evaluation due to nausea, vomiting and cough. No reported fever and chills. No reported diarrhea. Upon evaluation vital signs revealed tachypnea . Laboratory workup revealed no leukocytosis ,initially hemoglobin 10.2 , hematocrit 31.8. BUN 27, creatinine 0.9 , stable LFT Urinalysis revealed evidence of possible UTI. CT of the abdomen and pelvis demonstrated large central lower abdominal ventral hernia, containing small bowel loops. No evidence of obstruction. Large hiatal hernia. Atrophic bilateral kidneys. Patient was admitted for further management. CONSULTANTS: ID specialist Dr. Sanchez GI specialist Dr. Amor broommaking supervisor/oncologist Dr. Lou HOSPITAL COURSE: Patient admitted . Patient started on IV fluids and empiric antibiotics. Tracheostomy care provided. Pulmonary toilet provided bronchodilator. Mucomyst administered via HHN. Supplemental oxygen titrated to keep pulse oximetry above 92%. Chest x-ray revealed mild interstitial congestive changes, hiatal hernia borderline cardiomegaly. Patient developed leukocytosis. No fevers. Per ID specialist, patient probably had pneumonia. Patient was on broad- spectrum antibiotics while in the hospital. Urine culture revealed no evidence of UTI. GI specialist followed. Strict aspiration precautions were maintained. G-tube feeding provided as per registered dietitian recommendation regarding tube formula and recommended rate. Low dose of Reglan was provided [id number] to improve GI motility. Zofran was on board as needed for nausea and vomiting. Bowel regimen instituted. Patient was on GI prophylaxis. GI specialist recommended GI procedure only for emergency. Nausea and vomiting resolved, likely were due to hiatal hernia. Hemoglobin and hematocrit were closely monitored with goal to keep hemoglobin above 7. Ship Carpenter followed. Anemia workup was reviewed, ferritin 323. Patient had anemia of chronic disease , due to underlying chronic medical issues. No evidence of hemolysis noted. Hemoglobin and hematocrit were closely monitored with goal to keep hemoglobin above 7 Prior to discharge hemoglobin 11. Stool for occult blood was negative. Blood pressure was managed with calcium channel alexey and remained stable. Blood sugar was closely monitored remained stable. Patient clinically stabilized and was ready for discharge back to care home facility for continuation of care. FINAL DIAGNOSES: Possible pneumonia Acute and chronic respiratory failure Large hiatal hernia Large ventral hernia Diabetes mellitus COPD Anemia of chronic disease Gastroparesis DISCHARGE MEDICATIONS: See Medication Reconciliation list. DISCHARGE INSTRUCTIONS: Patient was discharged to the care home facility. Follow up with medical doctor at the facility. I have been assigned to dictate discharge summary for this account. I was not involved in the patient's management. Domi Antonio NP Jun 28, 2018 08:24
== END 2018-06-25 15:30 | DRG 139 ==
LOC: EDBD 21:06 → EMR 21:52 → 2E 06-22 00:15 → EDBEDREQ 06-22 00:59 → 2E 06-22 02:43
DX: J18.9 Pneumonia, unspecified organism (principal); J96.20 Acute and chronic respiratory failure, unspecified whether with hypoxia or hypercapnia; K31.84 Gastroparesis; E11.43 Type 2 diabetes mellitus with diabetic autonomic (poly)neuropathy; E86.0 Dehydration; Z43.0 Encounter for attention to tracheostomy; N39.0 Urinary tract infection, site not specified; J44.9 Chronic obstructive pulmonary disease, unspecified; G30.9 Alzheimer's disease, unspecified; F02.80 Dementia in other diseases classified elsewhere, unspecified severity, without behavioral disturbance, psychotic disturbance, mood disturbance, and anxiety; D50.9 Iron deficiency anemia, unspecified; Z88.6 Allergy status to analgesic agent; Z88.0 Allergy status to penicillin; Z43.1 Encounter for attention to gastrostomy; Z87.891 Personal history of nicotine dependence; Z79.4 Long term (current) use of insulin; D63.8 Anemia in other chronic diseases classified elsewhere; K44.9 Diaphragmatic hernia without obstruction or gangrene; N32.81 Overactive bladder; I10 Essential (primary) hypertension
CPT/HCPCS: 36415; 71045; 74176; 80048; 80053; 81003; 82270; 82962; 83090; 83690; 85025; 85384; 85610; 87081; 87086; 93005; 94002; 94003; 94640; 94664; 94760; 96361; 96365; 96375; 99285; J2405; J2765; J7620